=== PATIENT | female | born 1980 | race African-American/Black ===

== ENCOUNTER 2017-04-24 14:17 | Day surgery (SDC) | payer MEDICAID ==
[2017-04-24] MEDS ORDERED: Goserelin Acetate 10.8 MG KIT SC SCH (14:45)
== END 2017-04-24 15:23 | disposition home or self-care (01) ==
LOC: ONC/OP 14:17
PROVIDERS: ATTEND Internal Medicine Hematology & Oncology
DX: C50.111 Malignant neoplasm of central portion of right female breast (principal); C78.2 Secondary malignant neoplasm of pleura; Z98.890 Other specified postprocedural states
CPT/HCPCS: 96402; J9202

== ENCOUNTER 2017-05-22 11:51 | Day surgery (SDC) | payer MEDICAID ==
[2017-05-22] MEDS ORDERED: Goserelin Acetate 3.6 MG KIT SC SCH (12:15)
[2017-05-22] MEDS ORDERED: Goserelin Acetate 10.8 MG KIT SC SCH (12:15)
== END 2017-05-22 12:39 | disposition home or self-care (01) ==
LOC: ONC/OP 11:51
PROVIDERS: ATTEND Internal Medicine Hematology & Oncology
DX: Z51.11 Encounter for antineoplastic chemotherapy (principal); C50.111 Malignant neoplasm of central portion of right female breast; C78.2 Secondary malignant neoplasm of pleura
CPT/HCPCS: 36415; 80053; 82248; 83615; 84100; 84550; 96401; J9202

== ENCOUNTER 2017-06-23 12:09 | Day surgery (SDC) | payer OTHER, SELFPAY ==
[2017-06-23] MEDS ORDERED: Goserelin Acetate 3.6 MG KIT SC SCH (12:30)
[2017-06-23 12:59] VITALS: BP 140/86; TEMP 98.1
== END 2017-06-23 13:26 | disposition home or self-care (01) ==
LOC: ONC/OP 12:09
PROVIDERS: ATTEND Internal Medicine Hematology & Oncology
DX: Z51.11 Encounter for antineoplastic chemotherapy (principal); C50.111 Malignant neoplasm of central portion of right female breast; C78.2 Secondary malignant neoplasm of pleura
CPT/HCPCS: 96402; J9202

== ENCOUNTER → 2017-06-27 | Outpatient (CLI) | payer OTHER ==
[~2017-06-27] MED LIST: Iopamidol 370 76% 100 ML VIAL ONE
--- NOTE | 2017-06-27 12:07 | CT ---
CT THORAX WITH IV CONTRAST CT ABDOMEN WITH IV CONTRAST Date: 06-27-17 History: Malignant neoplasm of right breast. History of chemotherapy. Right mastectomy. Comparison[place] [facility] [place] FINDINGS: There is evidence of right mastectomy with right breast prosthesis. Surgical clips are seen in the ri ght axillary region. There is no lymphadenopathy seen within the chest or super infraclavicular locations on this exam. Several noncalcified subcentimeter pulmonary nodules are again seen within the lungs bilaterally. Lar gest pulmonary nodule in the most medial aspect right upper lobe posterior to the right hilum measure s 5 mm with largest pulmonary nodule on the left also seen in the left upper lobe just posterior to t he superior aspect of the left main pulmonary artery adjacent to the abdominal aorta measuring 10 mm. Remaining pulmonary nodules measure less than 5 mm within each upper lobe. There is a pulmonary nodu le in the right lower lobe measuring approximately 6 mm, also stable from prior exam. These pulmonary nodules were also present on the prior exam and not significantly changed. No definite new discrete pulmonary nodular mass is seen. There is no pleural effusion identified. There was bilateral hilar as well as mediastinal lymphadenopathy seen on the prior exam, and the size of these lymph nodes has decreased when compared to the prior exam. No enlarged mediastinal or hilar lymph nodes are appreciated on today's examination. There is a stable 2.9 cm hypodense lesion seen within the right hepatic lobe, likely related to a met astatic lesion which is unchanged in size or appearance. No new hepatic lesions are identified. Increased density foci are seen in the inferior pole right kidney which may be related to contrast in the renal collecting systems although this is not appreciated in remaining portions of the collectin g systems bilaterally and may be related to nonobstructing renal calculi measuring up to 5 mm. Kidney s otherwise have a normal CT appearance. The spleen, pancreas, bilateral adrenal glands, abdominal aorta, and opacified small bowel have a nor mal CT appearance. There is a fat containing umbilical hernia. There is no evidence of lymphadenopathy seen in the abdomen. No free fluid is noted. There are multiple lytic lesions seen throughout the vertebral bodies involving the thoracic as well as lumbar spine involving the sacrum as well as bilateral iliac bones. These lytic lesions were not p resent on the prior exam. Lytic lesions throughout the thoracic and lumbar spine measure less than 1 cm. Apparent lucencies within the sacrum bilaterally, incompletely characterized on this exam. The la rgest measured approximately 2.1 cm. IMPRESSION: 1. Worsening metastatic disease with interval development of multiple osseous metastatic lesions. Mul tiple stable bilateral pulmonary nodules are seen as well as stable lesion in the right hepatic lobe, also likely related to metastatic disease. 2. Resolution of mediastinal and hilar lymphadenopathy. POS: [facility]
== END ==
LOC: CT 09:19
PROVIDERS: ATTEND Internal Medicine Hematology & Oncology
DX: C78.2 Secondary malignant neoplasm of pleura (principal); C50.111 Malignant neoplasm of central portion of right female breast; C79.51 Secondary malignant neoplasm of bone; K76.9 Liver disease, unspecified
CPT/HCPCS: 71260; 74160

== ENCOUNTER 2017-07-19 23:18 | Observation (INO) | payer OTHER ==
[2017-07-20 00:27] LABS: Hemoglobin 11.2 g/dL (12.0-16.0); Mean Corpuscular HGB CONC 35.6 g/dL (32.0-36.0); Mean Corpuscular Hemoglobin 34.2 pg (27.0-31.0); Mean Corpuscular Volume 96.3 fl (81.0-99.0); Mean Platelet Volume 7.2 fL (7.4-10.4); Platelet Count 341 thou/uL (130-400); RBC Distribution Width 15.2 % (11.5-14.5); Red Blood Cell (RBC) Count 3.26 mill/uL (4.20-5.40)
[2017-07-20 00:47] LABS: ALT (SGPT) 20 U/L (8-55); AST (SGOT) 26 U/L (5-34); Albumin 4.3 g/dL (3.5-5.0); Alkaline Phosphatase 155 U/L (40-150); Anion Gap 13 mmol/L (10-20); BUN (Urea Nitrogen) 16 mg/dL (7.0-18.7); Bilirubin, Total 0.2 mg/dL (0.2-1.2); Calc. Creatinine Clearance 0 mL/min (70-130); Calcium 9.7 mg/dL (7.8-10.44); Carbon Dioxide 28 mmol/L (22-29); Chloride 102 mmol/L (98-107); Estimated GFR-MDRD 74; Globulin 3.5 g/dL (2.4-3.5); Glucose 111 mg/dL (70-105); Protein, Total 7.8 g/dL (6.0-8.3); Sodium 139 mmol/L (136-145)
[2017-07-20 00:54] LABS: Eosinophils 3 % (0-10); Lymphocytes 62 % (21-51); MDiff Complete? YES; Monocytes 3 % (0-10); Neutrophil 32 % (42-75)
[2017-07-20] MEDS ORDERED: HYDROcodone/Acetaminophen 5/325 mg Tablet PO PRN ×2 (03:19)
[2017-07-20] MEDS ORDERED: Morphine 4 MG/ML VIAL SLOW IVP PRN (03:19)
[2017-07-20] MEDS ORDERED: Acetaminophen 325 MG TAB PO PRN (03:19)
[2017-07-20] MEDS ORDERED: Ondansetron ODT 8 MG TAB SL PRN (03:26)
[2017-07-20] MEDS ORDERED: Sodium Chloride 0.9% 1,000 ML IV SCH (03:30)
[2017-07-20] MEDS ORDERED: Dexamethasone 10 MG/ML VIAL SLOW IVP SCH (03:30)
[2017-07-20] MEDS ORDERED: Zolpidem Tartrate 5 MG TAB PO PRN ×3 (03:32→20:33)
[2017-07-20] MEDS ORDERED: Calcium Carbonate 500 MG ChewTAB PO PRN (03:41)
[2017-07-20] MEDS ORDERED: Simethicone Chewable 80 MG TAB PO PRN (03:41)
[2017-07-20] MEDS ORDERED: Lorazepam 2 MG/ML VIAL SLOW IVP SCH (04:00)
[2017-07-20] MEDS ORDERED: MORPHINE 10 MG/ML SYRINGE SLOW IVP SCH ×2 (04:00→16:00)
[2017-07-20] MEDS: Morphine 4 MG/ML VIAL SLOW IVP SCH ×2 (04:09→09:11)
[2017-07-20 04:25] VITALS: BMI 35.0
[2017-07-20] MEDS: Morphine 4 MG/ML VIAL SLOW IVP PRN ×2 (06:04→19:22)
--- NOTE | 2017-07-20 07:46 | HP-2 ---
DATE OF ADMISSION: 07/20/2017 CODE STATUS: FULL. ATTENDING PHYSICIAN: Sheldon Cordero M.D. RESIDENT: Caren Glaser M.D. HISTORIAN: Self. SPECIALIST: Deya Duran M.D., oncologist. CHIEF COMPLAINT: Left rib pain. HISTORY OF PRESENT ILLNESS: This is a 37-year-old female with past medical history of metastatic john ast cancer who presents to the ED complaining of pain. She reports that she has been having back jus n that she has started around the left side of her ribs and up into her sternum for the past 2 weeks. The pain has been getting progressively worse. It is sharp, 9/10 pain. It is worse with movement and with deep breathing or coughing. She was supposed to get an MRI of her spine on 07/25/[address] Duran. There was a CT done that had concern for mets to her bones, but Dr. Duran wante d to examine this further. She takes [place] 10/325 one and half tablets q.6 hours for her pain and th is is not really helping her pain. In the ER, she was given morphine 6 mg. PAST MEDICAL HISTORY: Metastatic breast cancer with mets to the lungs, liver and lymph nodes. PAST SURGICAL HISTORY: Right mastectomy and lymph node biopsy. ALLERGIES: No known drug allergies. MEDICATIONS: 1. [place] 10/325 mg 1.5 tablets q.6 hours. 2. Sucralfate 1 gram a.c. and at bedtime. 3. Nexium 40 mg q.a.m. 4. Ibrance 125 mg p.o. at bedtime. 5. Letrozole 2.5 mg p.o. at bedtime. 6. Zoladex 3.6 mg subcutaneously every 28 days. 7. Ambien 10 mg p.o. at bedtime p.r.n. insomnia. 8. Simethicone 80 mg p.o. at bedtime p.r.n. gas pain. 9. Tums 500 mg p.o. q.i.d. p.r.n. heartburn. FAMILY HISTORY: Mom, diabetes and hypertension. SOCIAL HISTORY: Denies tobacco, alcohol, or drug use. REVIEW OF SYSTEMS: GENERAL: Negative for fever, chills, fatigue. EYES: Negative for eye pain. EN T: Negative for rhinorrhea or sore throat. RESPIRATORY: Positive for cough. Negative for shortnes s of breath. CARDIOVASCULAR: Positive for chest pain. Negative for palpitations. GASTROINTESTINAL : Negative for nausea, vomiting, diarrhea. Positive for abdominal pain. GENITOURINARY: Negative f or dysuria, polyuria. SKIN: Negative for rashes, lesions. MUSCULOSKELETAL: Positive for pain or t enderness. NEUROLOGIC: Negative for weakness, numbness. PHYSICAL EXAMINATION: VITAL SIGNS: Blood pressure 169/109, pulse 112, respiratory rate 18, temperature 98.9, pulse ox 96% on room air, and current weight 84.82 kilograms. GENERAL: Alert, oriented x3, no acute distress, well-nourished, appropriately interactive. EYES: PERRLA. Extraocular muscles intact. Conjunctivae within normal limits. ENT: Nasal mucosa and oropharynx within normal limits. NECK: Supple, no lymphadenopathy. CARDIOVASCULAR: Regular rate and rhythm, no murmurs, gallops, 2+ radial and pedal pulses. LUNGS: Normal effort, no retractions, clear to auscultation bilaterally. SKIN: Warm, dry. No cyanosis or lesions. EXTREMITIES: No cyanosis or edema. BACK: There is point tenderness on lumbar spine. MUSCULOSKELETAL: Structure and tone within normal limits, 5/5 muscle strength. Full range of motion . NEUROLOGIC: No focal deficits. Sensation within normal limits. PSYCHIATRIC: Appropriate. LABORATORY DATA: WBC 4.0, ANC 1.28, hemoglobin 11.2, hematocrit 31.4, MCV 96.3, platelets 341. Sodi um 139, potassium 4.0, chloride 102, CO2 28, BUN 16, creatinine 1.02, GFR 74, glucose 111, calcium 9. 7, total protein 7.8, albumin 4.3, total bilirubin 0.2, alkaline phosphatase 155, AST 26, and ALT 20. ASSESSMENT AND PLAN: This is a 37-year-old female who presents with: 1. Intractable pain secondary to metastatic disease. This could be bony pain versus pleural. We wi ll give morphine 4 mg q.4 hours and 2 mg q.2 hours p.r.n. breakthrough. We will load the patient wit h dexamethasone 50 grams IV and then do a steroid taper. We will get MRIs of the spine and consult O ncology in a.m. 2. Elevated blood pressure, likely secondary to pain. We will monitor. Treat pain and treat blood pressure if remains elevated. 3. Metastatic breast cancer. Continue home meds and consult Oncology in a.m. 4. Neutropenia, likely secondary to chemotherapy. We will monitor with ANC of 1.28. 5. Normocytic anemia, mild, likely secondary to chronic disease. We will monitor. 6. Acute versus chronic kidney disease. Patient did not appear volume depleted on exam. We will mo nitor. 7. Elevated alkaline phosphatase could be secondary to bone mets. We will monitor and we will get MR Is of the spine. Concern for rib mets with patient's history of rib pain. 8. Deep venous thrombosis prophylaxis, Lovenox. DISPOSITION: Observation with Oncology. Symptomatic medications will be provided. History and physical exam as well as management discussed with Dr. Cordero.
--- NOTE | 2017-07-20 07:46 | MRI ---
PRELIMINARY REPORT/[facility]/EMERGENCY AFTER HOURS PROCEDURE: EXAM: MR Thoracic Spine Without Intravenous Contrast CLINICAL HISTORY: 37 years old, female; Pain; Pain in thoracic spine; Without myelpathy or radiculopathy; Patient HX: F 37 presents to ed C/O l rib pain that wraps around torso, onset x 1 w. Location in front if under pt' s breast. Quality is sharp and shooting. Pain has worsened since onset. Family reports pain preventing pt from being able to sleep. Exacerbated by lying flat, deep inhalation. Reports pain throughout enti re spine, even up to neck; However, spine pain has different quality and began prior to onset o rib p ain. Pt has taken hydrocodone for pain, which offered no relief. TECHNIQUE: Magnetic resonance images of the thoracic spine without intravenous contrast in multiple planes. COMPARISON: No relevant prior studies available. FINDINGS: Vertebrae: Mildly heterogeneous bone marrow signal No acute fracture. Discs/spinal canal/neural foramina: No acute findings. No significant disc disease. No spinal canal s tenosis. Spinal cord: Unremarkable. Normal signal. Soft tissues: Unremarkable. IMPRESSION: No definite acute process identified Thank you for allowing us to participate in the care of your patient. Dictated and Authenticated by: Bhanu Holcomb MD 07/20/2017 1:43 AM Central Time ([place] & [place]) FINAL REPORT NONCONTRAST ENHANCED MRI THORACIC SPINE: Date: 07/19/17 HISTORY: Back pain, evaluate for metastatic disease. TECHNIQUE: Multiplanar, multisequence noncontrast enhanced MRI of thoracic spine obtained. FINDINGS: Images demonstrate signal abnormality on T1 and STIR weighted sequences involving all of the thoracic vertebra. The thoracic vertebra, particularly the vertebral bodies, have heterogeneous pattern of si gnal intensity with abnormal increased signal on the STIR weighted sequences. This is concerning for extensive thoracic spine metastatic disease. No definite evidence of compression fractures or signifi cant central canal stenosis is seen. The neural foramen are patent. IMPRESSION: Findings concerning for extensive thoracic spine vertebral signal abnormalities concerning for extens suad metastatic disease. POS: [facility]
--- NOTE | 2017-07-20 07:52 | MRI ---
PRELIMINARY REPORT/[facility]/EMERGENCY AFTER HOURS PROCEDURE: EXAM: MR Cervical Spine Without Intravenous Contrast CLINICAL HISTORY: 37 years old, female; Pain; Neck pain; Patient HX: F37 presents to ed C/O l rib pain that wraps aroun d torso, onset x 1 w. Location in front if under pt's breast. Quality is sharp and shooting. Pain has worsened since onset. Family reports pain preventing pt from being able to sleep. Exacerbated by lyi ng flat, deep inhalation. Reports pain throughout entire spine, even up to neck; However, spine pain has different quality and began prior to onset o rib pain. Pt has taken hydrocodone for pain, which o ffered no relief. TECHNIQUE: Magnetic resonance images of the cervical spine without intravenous contrast in multiple planes. COMPARISON: No relevant prior studies available. FINDINGS: Vertebrae: Loss of vertebral body height, presumed degenerative No acute fracture. Mildly heterogeneo us bone marrow signal Spinal cord: Unremarkable. Normal signal. Soft tissues: Unremarkable. DISCS/SPINAL CANAL/NEURAL FORAMINA: C2-C3: Unremarkable. No significant disc disease. No stenosis. C3-C4: Posterior osseous ridging and mild disc bulging mildly effacing anterior thecal sac. No discon tinue herniation or significant foraminal stenosis C4-C5: Mild central canal stenosis. No disc herniation or significant coronal stenosis C5-C6: Mild central canal stenosis. Right greater left foraminal stenosis. No disc herniation C6-C7: Mild central canal stenosis and right-sided foraminal stenosis. No disc herniation noted C7-T1: Unremarkable. No significant disc disease. No stenosis. IMPRESSION: Degenerative changes most pronounced in the lower cervical spine as described. No focal disc herniation Thank you for allowing us to participate in the care of your patient. Dictated and Authenticated by: Bhanu Holcomb MD 07/20/2017 1:24 AM Central Time ([place] & [place]) FINAL REPORT MRI CERVICAL SPINE: Date: 07/19/17 HISTORY: Back pain. Patient with history of breast cancer. TECHNIQUE: Multiplanar, multisequence noncontrast enhanced MRI cervical spine obtained. FINDINGS: Images demonstrate signal heterogeneity in the C3, C5, C6, and C7 cervical vertebral bodies concernin g for metastatic disease. C1-2: Unremarkable. C2-3: There is a broad based disc bulge. No significant degree of central stenosis is seen. The neural fora men are patent. C3-4: Unremarkable. C4-5: There is a broad based disc osteophyte complex centrally compressing the thecal sac resulting in mode rate degree of thecal sac and mild cord compression. The neural foramen are patent. C5-6: There is a broad based disc osteophyte complex centrally compressing the thecal sac resulting in a mo derate degree of thecal sac and mild cord compression. The neural foramen demonstrate mild bilateral C5-6 narrowing due to uncovertebral osteophyte hypertrophy. C6-7: There is a broad based disc osteophyte complex centrally compressing the thecal sac resulting in a mo derate to significant degree of central and right paracentral C6-7 spinal stenosis. The neural forame n are patent. C7-T1: Unremarkable. IMPRESSION: 1. Multilevel central disc osteophyte complexes compressing the thecal sac. 2. Multiple areas of signal abnormality seen in the cervical vertebra compatible with metastatic dis ease. POS: [facility]
[2017-07-20] MEDS: Sucralfate 1 GM TAB PO SCH ×4 (07:55→21:18)
--- NOTE | 2017-07-20 08:01 | MRI ---
PRELIMINARY REPORT/[facility]/EMERGENCY AFTER HOURS PROCEDURE: EXAM: MR Lumbar Spine Without Intravenous Contrast CLINICAL HISTORY: 37 years old, female; Pain; Low back pain; Patient HX: F37 presents to ed C/O l rib pain that wraps a round torso, onset x 1 w. Location in front if under pt's breast. Quality is sharp and shooting. Pain has worsened since onset. Family reports pain preventing pt from being able to sleep. Exacerbated by lying flat, deep inhalation. Reports pain throughout entire spine, even up to neck; However, spine p ain has different quality and began prior to onset o rib pain. Pt has taken hydrocodone for pain, whi ch offered no relief. TECHNIQUE: Magnetic resonance images of the lumbar spine without intravenous contrast in multiple planes. COMPARISON: No relevant prior studies available. FINDINGS: Vertebrae: Unremarkable. No acute fracture. Spinal cord: Unremarkable. Normal signal. Soft tissues: Unremarkable. DISCS/SPINAL CANAL/NEURAL FORAMINA: L1-L2: Unremarkable. No significant disc disease. No stenosis. L2-L3: Unremarkable. No significant disc disease. No stenosis. L3-L4: Unremarkable. No significant disc disease. No stenosis. L4-L5: Loss of disc signal Mild disc bulging with left greater than right moderate foraminal stenosis . No significant central canal stenosis or evidence for disc herniation. Facet hypertrophic changes not ed L5-S1: Loss of disc signal. Mild disc bulging No significant central canal stenosis. Moderate foramin al stenosis. No disc herniation. Facet hypertrophic changes observed IMPRESSION: Degenerative changes in the lower lumbar spine as described with bilateral foraminal stenosis. No sig nificant central canal stenosis or evidence for disc herniation Thank you for allowing us to participate in the care of your patient. Dictated and Authenticated by: Bhanu Holcomb MD 07/20/2017 2:01 AM Central Time ([place] & [place]) FINAL REPORT NONCONTRAST ENHANCED MRI LUMBAR SPINE: Date: 07/19/17 HISTORY: Back pain with metastatic disease. TECHNIQUE: Noncontrast enhanced MRI lumbar spine obtained. FINDINGS: Areas of definite signal abnormality seen in the T11, T12, and S1 vertebra compatible with definite m etastatic lesions in these areas. There are more subtle areas of superior end plate signal abnormalit y seen involving the superior anterior aspect of L1, posterior superior end plate of L3, and the ante rior, superior, and inferior aspects of the L4 vertebra. There is also a subtle area of central infer ior end plate L5 signal abnormality. These all may represent possible early metastatic lesions only s een on the STIR weighted sequences. There is a broad based disc bulge at L4-5 with mild but not significant degree of central stenosis. B ilateral facet hypertrophic changes seen at the L4-5 level with some fluid seen in the L4-5 facet ant nts. L5-S1: Disc desiccation is seen. There is a broad based disc bulge with bilateral facet hypertrophy. A small amount of fluid seen in the L5-S1 facet joints. IMPRESSION: Multiple areas of signal abnormality definitively in the lower thoracic spine and first sacral verteb ra. These are compatible with definite metastatic lesions. More subtle areas of signal abnormality se en in the lumbar vertebra, possibly representing early metastatic lesions. POS: [facility]
[2017-07-20] MEDS: Enoxaparin Sodium 40 MG/0.4 ML SYRINGE SC SCH (09:11)
[2017-07-20] MEDS: Dexamethasone 4 MG TAB PO SCH ×2 (11:35→16:37)
[2017-07-20] MEDS: HYDROcodone/Acetaminophen 10/325 mg Tablet PO SCH ×2 (11:35→19:19)
--- NOTE | 2017-07-20 12:18 | PDOC.EVN ---
Attending Addendum - Attending Addendum I personally evaluated the patient and discussed the management with Dr. Glaser. I agree with the History, Examination, Assessment and Plan documented in her H& P with any addition or exceptions noted below. Patient with history of metastatic breast cancer admitted for worsening pain. We have discussed case with her oncologist, and will work to improve pain control through the day. There is no other significant findings that necessitate hospitalization. If we can get her pain under control, she can be discharged with early follow up with Oncology next week.
[2017-07-20] MEDS ORDERED: Morphine 4 MG/ML VIAL SLOW IVP SCH (16:00)
[2017-07-21] MEDS: HYDROcodone/Acetaminophen 10/325 mg Tablet PO SCH ×2 (03:23→11:10)
[2017-07-21] MEDS: Morphine 4 MG/ML VIAL SLOW IVP PRN ×2 (05:15→17:17)
--- NOTE | 2017-07-21 07:56 | PDOC.FM ---
- Subjective Subjective: Ms. Guallpa is feeling better this morning. Her pain is improved and she was able to sleep for most of the night. She did require 2mg of morphine around 3am for breakthrough pain but was otherwise well controlled. Regarding her increased heart rate, patient states that this is baseline for her. She has been told that she has a fast heart rate before, ever since having her first child. Also states that her heart rate is very reactive to any sort of stimulants in food/drink. EKG was done last night and was unremarkable. Pt denies any shortness of breath, CP, or palpitations this morning. - Objective MAR Reviewed: Yes Vital Signs & Weight: Vital Signs (12 hours) Temp Pulse Resp BP BP Pulse Ox 07/21/17 04:00 97.4 F L 100 16 129/69 99 07/20/17 23:00 97.8 F 110 H 18 108/57 L 96 07/20/17 20:00 97.5 F L 119 H 20 Weight Weight 86.778 kg I&O: 07/20/17 07/21/17 07/22/17 06:59 06:59 06:59 Intake Total 350.5 2521.0 Balance 350.5 2521.0 Result Diagrams: 07/19/17 00:13 07/19/17 00:13 EKG Reviewed by me: Yes <Eh Ny - Last Filed: 07/21/17 09:49> - Objective Vital Signs & Weight: Vital Signs (12 hours) Temp Pulse Resp BP BP Pulse Ox 07/21/17 08:25 97.8 F 107 H 18 141/80 H 96 07/21/17 08:00 97.8 F 107 H 18 07/21/17 04:00 97.4 F L 100 16 129/69 99 07/20/17 23:00 97.8 F 110 H 18 108/57 L 96 Weight Weight 86.778 kg I&O: 07/20/17 07/21/17 07/22/17 06:59 06:59 06:59 Intake Total 350.5 2521.0 Balance 350.5 2521.0 Result Diagrams: 07/19/17 00:13 07/19/17 00:13 <Sheldon Cordero - Last Filed: 07/21/17 10:17> Phys Exam - Physical Examination Constitutional: NAD Respiratory: clear to auscultation bilateral Cardiovascular: no significant murmur tachycardic Gastrointestinal: soft, non-tender Musculoskeletal: no edema, pulses present Neurological: non-focal, moves all 4 limbs Psychiatric: normal affect, A&O x 3 <Eh Ny - Last Filed: 07/21/17 09:49> Dx/Plan (1) Cancer associated pain Code(s): G89.3 - NEOPLASM RELATED PAIN (ACUTE) (CHRONIC) Status: Acute Plan: Scheduled norco increased this admission. Pain better controlled. Considering discharge today; sending Rx for tramadol for breakthrough pain. (2) Stage IV carcinoma of breast Code(s): C50.919 - MALIGNANT NEOPLASM OF UNSP SITE OF UNSPECIFIED FEMALE BREAST Status: Chronic Plan: Dr. Duran treating. Will try to get patient's monthly injection of aromatase inhibitor prior to discharge. Pt to f/u in cancer clinic tomorrow or Friday. (3) Sinus tachycardia Code(s): R00.0 - TACHYCARDIA, UNSPECIFIED Status: Chronic Plan: Asymptomatic. Improved this morning. EKG unconcerning. (4) Bone metastases Code(s): C79.51 - SECONDARY MALIGNANT NEOPLASM OF BONE Status: Acute Plan: New evidence of extensive bony mets throughout the vertebral column on MRI. Dr. Duran to set up radiation outpt. (5) Neutropenia Code(s): D70.9 - NEUTROPENIA, UNSPECIFIED Status: Chronic Plan: Likely related to ongoing cancer treatment. (6) Normocytic anemia Code(s): D64.9 - ANEMIA, UNSPECIFIED Status: Chronic Plan: Chronic, at baseline. <Eh Ny - Last Filed: 07/21/17 09:49> Attending Addendum - Attending Addendum I personally evaluated the patient and discussed the management with Dr. Ny. I agree with the History, Examination, Assessment and Plan documented above with any addition or exceptions noted below. Patient with improvement in pain today with [place] 10/325 2 tabs. She has required little for breakthrough pain. Case discussed with her oncologist yesterday and plans to follow up in clinic in next 1-2 days. If patient feeling well this afternoon, should be stable for discharge home. <Sheldon Cordero - Last Filed: 07/21/17 10:17>
[2017-07-21 08:26] VITALS: BP 141/80; TEMP 97.8
[2017-07-21] MEDS: Sucralfate 1 GM TAB PO SCH ×3 (08:27→17:10)
[2017-07-21] MEDS: Dexamethasone 4 MG TAB PO SCH ×3 (08:28→17:08)
[2017-07-21] MEDS: Enoxaparin Sodium 40 MG/0.4 ML SYRINGE SC SCH (08:28)
[2017-07-21] MEDS ORDERED: Goserelin Acetate 10.8 MG KIT SC SCH (14:30)
[2017-07-21] MEDS ORDERED: Magnesium Citrate 300 ML BOT PO SCH (18:00)
--- NOTE | 2017-07-22 01:39 | DIS-2 ---
DATE OF ADMISSION: 07/20/2017 DATE OF DISCHARGE: 07/21/2017 DISCHARGE ATTENDING: Sheldon Cordero M.D. DISCHARGING RESIDENT: Eh Ny M.D. CONSULTATIONS: None. PROCEDURES: None. IMAGING: She had MRI of the cervical, thoracic, and lumbar spines that showed multiple areas of sign al abnormality seen throughout the vertebral column compatible with metastatic disease. PRIMARY DISCHARGE DIAGNOSES: 1. Stage IV breast cancer metastatic to the bone. 2. Intractable cancer related pain, improved. 3. Sinus tachycardia. SECONDARY DISCHARGE DIAGNOSES: 1. Neutropenia. 2. Normocytic anemia. 3. Acute kidney injury versus chronic kidney disease, stage 2. DISCHARGE MEDICATIONS: 1. Dexamethasone 4 mg 3 times daily with meals. 2. Hydrocodone 10/325 two tabs every 8 hours. 3. Tramadol 50 mg every 4 hours as needed. 4. Zoladex 3.6 mg subcutaneously every 28 days. 5. Calcium carbonate 500 mg 4 times daily as needed. 6. Zolpidem 10 mg at bedtime as needed. 7. Simethicone 80 mg after meals and at bedtime as needed. 8. Esomeprazole 40 mg every morning with breakfast. 9. Sucralfate 1 gram 4 times daily. 10. Ibrance 125 mg oral at bedtime. 11. Letrozole 2.5 mg at bedtime. DISCONTINUED MEDICATIONS: [place] 10/325 one tablet every 6 hours as needed. HISTORY OF PRESENT ILLNESS AND HOSPITAL COURSE: This Ramu is a 37-year-old -[place] fema le with a past medical history of metastatic breast cancer who presents to the ED complaining of alice re back and rib pain. Family was concerned that pain was getting worse. Patient did have an order M RI of her spine ordered by her oncologist, Dr. Duran as scheduled for 07/17/2017 that upon admissio n in the ER physician, MRI of the cervical, thoracic, and lumbar spines were ordered. The patient's breast cancer was previously noted to be metastatic of the lungs, liver, and lymph nodes. MRI showed further metastatic disease of the vertebral column. During her admission, we titrated up her [place] to obtain a better pain control. Dr. Duran was notified that the patient was here and agreed to sc hedule the patient on Friday or Friday. After discharge to a set up for radiation treatments for the vertebral bone metastases. Patient was also noted to have some sinus tachycardia that was discu ssed with patient, this appears to be baseline. EKG was unremarkable. After a period of observation and increased pain control, patient was felt to be ready for discharge home. DISPOSITION: Stable. DISCHARGE INSTRUCTIONS: 1. Location: Home. 2. Activity: As tolerated. 3. Diet: Regular. 4. Follow up with Dr. Duran in 1-2 days.
[2017-07-22] MEDS ORDERED: Goserelin Acetate 3.6 MG KIT SC SCH (09:00)
--- NOTE | 2017-07-22 10:21 | EKG ---
Test Reason : Blood Pressure : / mmHG Vent. Rate : 113 BPM Atrial Rate : 113 BPM P-R Int : 142 ms QRS Dur : 068 ms QT Int : 324 ms P-R-T Axes : 037 034 066 degrees QTc Int : [address] elevation, consider early repolarization , widespread No previous ECGs available Confirmed by DR. Asa DE LEON ([id number]) on 07/22/2017 10:20:51 AM Referred By: Confirmed By:DR. Asa DE LEON
== END 2017-07-21 18:50 | disposition home or self-care (01) ==
LOC: ERS 23:18 → ONC 07-20 03:03
PROVIDERS: ADMIT Student in an Organized Health Care Education/Training Program; ATTEND Student in an Organized Health Care Education/Training Program
DX: C50.919 Malignant neoplasm of unspecified site of unspecified female breast (principal); G89.3 Neoplasm related pain (acute) (chronic); C78.02 Secondary malignant neoplasm of left lung; C78.01 Secondary malignant neoplasm of right lung; C78.7 Secondary malignant neoplasm of liver and intrahepatic bile duct; C77.9 Secondary and unspecified malignant neoplasm of lymph node, unspecified; C79.51 Secondary malignant neoplasm of bone; R00.0 Tachycardia, unspecified; D70.9 Neutropenia, unspecified; R03.0 Elevated blood-pressure reading, without diagnosis of hypertension; R74.8 Abnormal levels of other serum enzymes; R07.81 Pleurodynia; M54.9 Dorsalgia, unspecified; Z79.899 Other long term (current) drug therapy; Z90.11 Acquired absence of right breast and nipple; Z98.890 Other specified postprocedural states
CPT/HCPCS: 72141; 72146; 72148; 80053; 85025; 93005; 93010; 96372; 96374; 96375; 96376; A4216; G0378; J1100; J1650; J2060; J2270; J8540

== ENCOUNTER 2017-07-24 10:41 | Day surgery (SDC) | payer OTHER, SELFPAY ==
[2017-07-24] MEDS ORDERED: Goserelin Acetate 3.6 MG KIT SC SCH (11:00)
[2017-07-24 11:01] VITALS: BP 138/77; TEMP 97.9
== END 2017-07-24 11:23 | disposition home or self-care (01) ==
LOC: ONC/OP 10:41
PROVIDERS: ATTEND Internal Medicine Hematology & Oncology
DX: Z51.11 Encounter for antineoplastic chemotherapy (principal); C50.111 Malignant neoplasm of central portion of right female breast; C78.2 Secondary malignant neoplasm of pleura; Z90.11 Acquired absence of right breast and nipple; Z98.890 Other specified postprocedural states; Z83.3 Family history of diabetes mellitus; Z82.49 Family history of ischemic heart disease and other diseases of the circulatory system
CPT/HCPCS: 96402; J9202

== ENCOUNTER 2017-08-21 13:03 | Day surgery (SDC) | payer OTHER ==
[2017-08-21] MEDS ORDERED: Goserelin Acetate 3.6 MG KIT SC SCH (13:15)
== END 2017-08-21 14:27 | disposition home or self-care (01) ==
LOC: ONC/OP 13:03
PROVIDERS: ATTEND Internal Medicine Hematology & Oncology
DX: Z51.11 Encounter for antineoplastic chemotherapy (principal); C50.111 Malignant neoplasm of central portion of right female breast; C78.2 Secondary malignant neoplasm of pleura
CPT/HCPCS: 96402; J9202

== ENCOUNTER 2017-09-04 09:45 | Outpatient (CLI) | payer OTHER ==
[2017-09-04 11:29] LABS: Mean Corpuscular HGB CONC 34.4 g/dL (32.0-36.0); Mean Corpuscular Hemoglobin 33.9 pg (27.0-31.0); Mean Corpuscular Volume 98.4 fl (81.0-99.0); Mean Platelet Volume 7.8 fL (7.4-10.4); Platelet Count 128 thou/uL (130-400); RBC Distribution Width 13.8 % (11.5-14.5); Red Blood Cell (RBC) Count 3.54 mill/uL (4.20-5.40)
[2017-09-04 11:35] LABS: BHCG - Serum Negative (NEGATIVE); Pregs Control Background? CLEAR/WHITE (CLR/WHITE); Pregs Control Bar Appear? YES (CONTROL BAR)
[2017-09-04 11:51] LABS: Anion Gap 14 mmol/L (10-20); BUN (Urea Nitrogen) 13 mg/dL (7.0-18.7); Calc. Creatinine Clearance 0 mL/min (70-130); Calcium 10.1 mg/dL (7.8-10.44); Carbon Dioxide 26 mmol/L (22-29); Chloride 103 mmol/L (98-107); Estimated GFR-MDRD Greater than 90; Glucose 81 mg/dL (70-105); Sodium 139 mmol/L (136-145)
== END 2017-09-04 09:46 | disposition home or self-care (01) ==
LOC: LABBT 09:45
PROVIDERS: ATTEND Obstetrics & Gynecology
DX: Z01.812 Encounter for preprocedural laboratory examination (principal); Z17.0 Estrogen receptor positive status [ER+]
CPT/HCPCS: 80048; 84703; 85027; 86850; 86900; 86901

== ENCOUNTER 2017-09-08 10:49 | Day surgery (SDC) | payer OTHER, SELFPAY ==
[2017-09-04 10:27] VITALS: BMI 32.3
--- NOTE | 2017-09-07 19:37 | HP ---
DATE OF ADMISSION: 09/08/2017 REASON FOR ADMISSION: Recurrent breast cancer, estrogen receptor positive. SCHEDULED PROCEDURE: Laparoscopic bilateral salpingo-oophorectomy. HISTORY OF PRESENT ILLNESS: Ms. Guallpa is a 37-year-old 1, para 1 who has stage III recurr ent estrogen receptor positive, HER2 negative, breast cancer since 2008. She has had a hilar metasta sis or supraclavicular and hilar and pulmonary liver mets noted in 02/2017 and has bone metastases in the thoracic region noted in June. She is on Zoladex and desires surgical oophorectomy rather t estrella chemical. 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 PAST MEDICAL HISTORY: The patient has recurrent breast cancer. PAST SURGICAL HISTORY: Surgical therapy for her breast cancer as well as Mediport placement in the [facility]. MEDICATIONS: Zolpidem, Nexium, letrozole, Ibrance. ALLERGIES: None. SOCIAL HISTORY: Denies tobacco, alcohol, or drug use. FAMILY HISTORY: Noncontributory. REVIEW OF SYSTEMS: Noncontributory. PHYSICAL EXAMINATION: GENERAL: White female, in no acute distress. HEENT: Within normal limits. LUNGS: Clear to auscultation bilaterally. HEART: Regular rhythm. BREASTS: Masses bilaterally and at this time status post breast cancer treatment. ABDOMEN: Soft and nontender. No rebound or guarding. PELVIC: Vulva without lesions. Vagina without discharge. Cervix parous, uterus anteverted and smal l adnexa, no masses bilaterally. EXTREMITIES: Without clubbing, cyanosis or edema. IMPRESSION: Recurrent estrogen receptor positive, metastatic breast cancer, desiring surgical castra tion. PLAN: Laparoscopic BSO with appropriate antibiotic and DVT prophylaxis.
--- NOTE | 2017-09-07 19:39 | HP ---
DATE OF ADMISSION: 09/08/2017 REASON FOR ADMISSION: Recurrent ER positive breast cancer. SCHEDULED PROCEDURE: Laparoscopic bilateral salpingo-oophorectomy. HISTORY OF PRESENT ILLNESS: Ms. Guallpa is a 37-year-old 1, para 1 with metastatic stage II I, ER positive breast cancer metastatic through her mediastinum, liver, lung, and spine. She is curr ently on Zoladex and desires surgical castration. 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 PAST MEDICAL HISTORY: Recurrent breast cancer. PAST SURGICAL HISTORY: Surgical management of breast cancer and port placement. ALLERGIES: None. MEDICATIONS: Ibrance, letrozole, Nexium, sucralfate, Zoladex. SOCIAL HISTORY: Denies tobacco, alcohol, or drug use. FAMILY HISTORY AND REVIEW OF SYSTEMS: Noncontributory. PHYSICAL EXAMINATION: GENERAL: White female, in no acute distress. VITAL SIGNS: 5 feet 2, 187, BMI 34, blood pressure 100/60. HEENT: Within normal limits. LUNGS: Clear to auscultation bilaterally. HEART: Regular rhythm. BREASTS: No masses bilaterally. ABDOMEN: Soft, nontender, no rebound or guarding. PELVIC: Vulva without lesions. Vagina without discharge. Cervix parous. Uterus anteverted, small adnexa, no masses bilaterally. EXTREMITIES: Without clubbing, cyanosis or edema. IMPRESSION: ER positive for recurrent breast cancer metastasis, currently undergoing monthly shots w ith Zoladex for chemical castration, desires surgical castration. PLAN: Laparoscopic BSO. We will administer appropriate antibiotic and DVT prophylaxis.
[2017-09-08] MEDS ORDERED: Lidocaine 1% w/Epinephrine 1:200K 30 ML VIAL ONE (11:42)
[2017-09-08] MEDS ORDERED: Bupivacaine 0.5% 10 ML VIAL ONE ×3 (11:42→11:44)
[2017-09-08] MEDS ORDERED: HYDROmorphone 0.5 MG/0.5 ML SYRINGE ONE (11:52)
[2017-09-08] MEDS ORDERED: Fentanyl 100 MCG/2 ML VIAL ONE (11:52)
[2017-09-08] MEDS ORDERED: Lidocaine 1% PF 5 ML VIAL ONE (12:00)
[2017-09-08] MEDS ORDERED: PROPOFOL 200 MG/20 ML VIAL ONE (12:00)
[2017-09-08] MEDS ORDERED: Glycopyrrolate 0.2 MG/ML 5 ML SYRINGE ONE (12:00)
[2017-09-08] MEDS ORDERED: Dexamethasone 20 MG/5 ML VIAL ONE (12:00)
[2017-09-08] MEDS ORDERED: PHENYLEPHRINE-NS 100 MCG/ML 10 ML SYRINGE ONE (12:00)
[2017-09-08] MEDS ORDERED: Ondansetron PF 4 MG/2 ML Vial ONE (12:00)
[2017-09-08] MEDS ORDERED: Ketorolac Tromethamine 30 MG/ML VIAL ONE (12:00)
[2017-09-08] MEDS ORDERED: CEFAZOLIN/Water 2 GM/20 ML SYRINGE ONE (12:02)
--- NOTE | 2017-09-08 15:44 | OP ---
DATE OF PROCEDURE: 09/08/2017 PREOPERATIVE DIAGNOSIS: Recurrent metastatic estrogen receptor positive breast cancer. POSTOPERATIVE DIAGNOSIS: Recurrent metastatic estrogen receptor positive breast cancer. PROCEDURE: Laparoscopic bilateral salpingo-oophorectomy. SURGEON: Noe Peter M.D. ANESTHESIA: General endotracheal. ANESTHESIOLOGIST: Ariel Jimenez M.D. ESTIMATED BLOOD LOSS: Less than 50 mL. MEDICATIONS: Two grams Ancef preincision. DVT PROPHYLAXIS: SCDs. OPERATIVE FINDINGS: 1. Normal appearing uterus, tubes, ovaries, and pelvis. 2. Complete removal of bilateral tubes and ovaries. 3. Hemostasis with clear urine, counts correct during the procedure. DISPOSITION: To the recovery room in good condition. DESCRIPTION OF OPERATIVE PROCEDURE: After obtaining proper informed consent, the patient was taken t o the operating room where general endotracheal anesthesia was achieved without difficulty after achi eving appropriate IV access. The patient was prepped and draped in dorsal lithotomy position. Bladd er drained with a Fields catheter and Hulka manipulator placed inside the cervix. Photographer Apprentice changed hi s gloves and turned his attention to the abdominal portion of procedure. 5 mL of Marcaine injected a t the base of umbilicus and a 5 mm skin incision made. Veress needle placed inside the abdominal cav ity. Confirmation of entry into the peritoneal cavity via saline drop test. Insufflation carried ou t with carbon dioxide to a max pressure of 15, volume approximately 3 liters. A 5 mm trocar placed u nder an Optiview technique confirming entry into the peritoneal tract cavity without trauma to underl hallie viscera. Left lateral 5 mm trocar placed under direct visualization and an 11 mm suprapubic in the midline in the same manner. The pelvic organs were mobilized and using the LigaSure, the utero-o varian, broad, mesosalpinx, and infundibulopelvic ligaments were coagulated and transected, amputatin g the right tube and ovary from the uterus and pelvis. It was placed in the cul-de-sac of Jack fo r retrieval. An identical procedure carried out on the patient's left. Good hemostasis was noted bi laterally after this was done. Retrieval sac was placed into the larger trocar and the specimens chava danna inside of this. They were pulled up to the level of skin with the trocar removed and the specime ns were removed without difficulty. Using the trocar closure set, the 11 mm trocar site was closed a t the level of the fascia using #0 Vicryl suture. The abdomen was then desufflated of carbon dioxide and the two smaller trocars removed. The skin reapproximated x3 using 4-0 Monocryl and Dermabond. Hulka manipulator was removed. Fields was removed. The patient was awakened, extubated, and taken to the recovery room in good condition.
[2017-09-08] MEDS ORDERED: HYDROcodone/Acetaminophen 5/325 mg Tablet ONE (18:06)
== END 2017-09-08 18:45 | disposition home or self-care (01) ==
LOC: SDC 10:49
PROVIDERS: ATTEND Obstetrics & Gynecology
PROC: 0UT24ZZ Resection of Bilateral Ovaries, Percutaneous Endoscopic Approach (ICD-10-PCS; principal; 2017-09-08)
PROC: 0UT74ZZ Resection of Bilateral Fallopian Tubes, Percutaneous Endoscopic Approach (ICD-10-PCS; principal; 2017-09-08)
DX: C79.62 Secondary malignant neoplasm of left ovary (principal); C79.61 Secondary malignant neoplasm of right ovary; C50.919 Malignant neoplasm of unspecified site of unspecified female breast; C78.1 Secondary malignant neoplasm of mediastinum; C78.7 Secondary malignant neoplasm of liver and intrahepatic bile duct; C79.51 Secondary malignant neoplasm of bone; C78.00 Secondary malignant neoplasm of unspecified lung; Z17.0 Estrogen receptor positive status [ER+]; Z79.818 Long term (current) use of other agents affecting estrogen receptors and estrogen levels; Z79.899 Other long term (current) drug therapy; Z90.10 Acquired absence of unspecified breast and nipple; Z98.890 Other specified postprocedural states
CPT/HCPCS: 88307; J0131; J1100; J1170; J1885; J2001; J2405; J2704; J3010; J3490

== ENCOUNTER 2017-09-13 22:24 | Inpatient (IN) | payer MEDICAID, OTHER ==
[~2017-09-13 22:24] MED LIST changes: +ISOVUE-370 76%-LOCM 1 ML ONE; -Iopamidol 370 76% 100 ML VIAL ONE; +Iopamidol 370 76% 50 ML VIAL FS ONE
--- NOTE | 2017-09-13 23:38 | CON ---
DATE OF CONSULTATION: 09/13/2017 HISTORY OF PRESENT ILLNESS: The patient is a 37-year-old -Swedish female who has been underg oing radiation and chemotherapy for metastatic breast cancer and has been having epigastric pain over the last 4 days. This pain does not seem to be alleviated or precipitated by any particular factors . It does not change with eating. She has tried some Nexium and sucralfate without benefit. She adams s had no melena or hematochezia. She just underwent a bilateral oophorectomy and she has had some co nstipation after this. PAST MEDICAL HISTORY: Significant for metastatic breast cancer with mets to the lungs, liver and lym ph nodes. PAST SURGICAL HISTORY: Includes right mastectomy and lymph node biopsy and recent oophorectomy. ALLERGIES: No known allergies. MEDICATIONS: [place], sucralfate, Nexium, Ibrance, letrozole, Zoladex, Ambien, simethicone, and Tums. SOCIAL HISTORY: She does not smoke or drink. FAMILY HISTORY: Negative for GI or liver disease. REVIEW OF SYSTEMS: Ten systems were reviewed and were negative except for above. PHYSICAL EXAMINATION: GENERAL: Shows an overweight -Swedish female in no acute distress. HEENT: Unremarkable. NECK: Supple. CHEST: Clear. CARDIOVASCULAR: Regular rate and rhythm. ABDOMEN: Soft. Diffusely tender. No organomegaly or masses appreciable. RECTAL: Deferred. EXTREMITIES: Normal. NEUROLOGIC: Nonfocal. LABORATORY AND IMAGING DATA: The recent laboratory is noted, but will be performed. No CT scan is y et viewable, but will be performed. ASSESSMENT: 1. Epigastric pain. 2. History of metastatic breast cancer. 3. Recent oophorectomy. RECOMMENDATIONS: 1. IV PPI. 2. CT scan. 3. EGD in a.m.
[2017-09-14 00:44] LABS: #Lymphocytes 1.1 thou/uL (1.20-3.40); #Monocytes 0.3 thou/uL (0.11-0.59); #Neutrophils 2.7 thou/uL (1.40-6.50); %Basophils 0.8 % (0.0-1.0); %Lymphocytes 27.3 % (21.0-51.0); Hemoglobin 11.5 g/dL (12.0-16.0); Mean Corpuscular HGB CONC 34.7 g/dL (32.0-36.0); Mean Corpuscular Hemoglobin 34.1 pg (27.0-31.0); Mean Corpuscular Volume 98.4 fl (81.0-99.0); Mean Platelet Volume 8.1 fL (7.4-10.4); Platelet Count 145 thou/uL (130-400); RBC Distribution Width 13.2 % (11.5-14.5); Red Blood Cell (RBC) Count 3.38 mill/uL (4.20-5.40); White Blood Cell (WBC) Count 4.2 thou/uL (4.8-10.8)
[2017-09-14 00:47] LABS: BHCG - Serum Negative (NEGATIVE); Pregs Control Background? CLEAR/WHITE (CLR/WHITE); Pregs Control Bar Appear? YES (CONTROL BAR)
[2017-09-14 00:49] LABS: INR-International Normal Ratio 1.1; PTT 29.2 SEC (22.9-36.1); Prothrombin Time 14.4 SEC (12.0-14.7)
[2017-09-14 00:56] LABS: Bilirubin Negative (Negative); Blood, Urine Negative (Negative); Glucose, Urine (Dipstick) Negative (Negative); Leukocyte Negative (Negative); Nitrite Negative (Negative); Protein, Urine (Dipstick) Negative (Neg-Trace); Urobilinogen 0.2 mg/dL (0.2-1.0)
[2017-09-14 00:58] LABS: Clarity Clear (Clear)
[2017-09-14 00:58] LABS: ALT (SGPT) 41 U/L (8-55); AST (SGOT) 41 U/L (5-34); Albumin 4.4 g/dL (3.5-5.0); Alkaline Phosphatase 162 U/L (40-150); Anion Gap 11 mmol/L (10-20); BUN (Urea Nitrogen) 7 mg/dL (7.0-18.7); Bilirubin, Total 0.4 mg/dL (0.2-1.2); Calc. Creatinine Clearance 0 mL/min (70-130); Calcium 10.1 mg/dL (7.8-10.44); Carbon Dioxide 28 mmol/L (22-29); Chloride 99 mmol/L (98-107); Estimated GFR-MDRD Greater than 90; Globulin 3.4 g/dL (2.4-3.5); Glucose 111 mg/dL (70-105); Lipase 17 U/L (8-78); Magnesium 2.5 mg/dL (1.6-2.6); Protein, Total 7.8 g/dL (6.0-8.3); Sodium 134 mmol/L (136-145)
[2017-09-14 01:00] LABS: CKMB 0.5 ng/mL (0-6.6); Troponin I Less than 0.010 ng/mL (< 0.028)
[2017-09-14] MEDS ORDERED: HYDROcodone/Acetaminophen 5/325 mg Tablet PO PRN (03:10)
[2017-09-14] MEDS ORDERED: HYDROcodone/Acetaminophen 7.5/325 mg Tablet PO PRN (03:10)
[2017-09-14] MEDS ORDERED: Ondansetron HCl/PF 4 MG/2 ML Vial IVP PRN ×2 (03:10→11:00)
[2017-09-14] MEDS: Sodium Chloride 0.9% 1,000 ML IV SCH ×2 (03:26→20:27)
[2017-09-14 04:12] VITALS: BMI 33.2
--- NOTE | 2017-09-14 04:31 | HP ---
CHIEF COMPLAINT: Abdominal pain. HISTORY OF PRESENT ILLNESS: Patient is a 37-year-old female [facility] Patient complained of having epigastric and left upper quadrant abdominal pain starting about 3 days ago. Of note, she recently had an oophorectomy endoscopically on Friday, 6 days ago. Patient d enied any other symptoms. She states that she has had some nausea, but no vomiting, no diarrhea, no constipation. She is currently getting chemotherapy for her breast cancer. Patient denied any sick contacts at home. No recent travels. PAST MEDICAL HISTORY: Patient is significant for metastatic breast cancer as discussed above as well as asthma. PAST SURGICAL HISTORY: Patient has had a right mastectomy as well as her recent oophorectomy. SOCIAL HISTORY: Negative tobacco or alcohol use. ALLERGIES: No known drug allergies. REVIEW OF SYSTEMS: Please see HPI. Rest of 14-point review of systems negative. LABORATORY AND X-RAY DATA: CBC: White count is 4.2, H&H 11 and 33 with platelet of 145. PT was 14, INR is 1.1, PTT was 29. Sodium 134, potassium 4.0, chloride 99, bicarbonate 28, BUN 7, creatinine 0 .8, lactic acid is 1.9. UA was normal. HOME MEDICATIONS: Patient's list is currently taking Nexium, Zoladex, [place], Femara, multivitamin, a nd Ibrance, sucralfate, tramadol, and Ambien. PHYSICAL EXAMINATION: VITAL SIGNS: Blood pressure 123/75, respirations 20, T-max 99.9, pulse initially is 122. Patient sa tting 98% on room air. GENERAL: Patient is awake, alert, and oriented x3, no acute distress. HEENT: Pupils are equal, round, react to light and accommodation. Extraocular muscles intact. TMs clear. No erythema in throat. NECK: No JVD, no lymphadenopathy. CARDIOVASCULAR: Regular rate and rhythm. LUNGS: Clear to auscultation bilaterally. ABDOMEN: Positive bowel sounds, soft, tender to palpation in epigastric/right upper quadrant area. No rebound or rigidity, no peritoneal signs. EXTREMITIES: No clubbing, cyanosis, or edema. IV noted in the foot on the left side. NEUROLOGIC: Cranial nerves II-XII are grossly intact. Muscle strength is equal throughout. PSYCHIATRIC: Patient's affect was normal and is cooperative and answers questions appropriately. ASSESSMENT AND PLAN: 1. Abdominal pain, possible related to patient's metastatic cancer. GI has seen this patient and pl ans on possible endoscopic study tomorrow. Continue with pain control with IV and p.o. pain medicati on. 2. Recent oophorectomy. COPY DIRECTOR has been notified by ER. Continue postop care. 3. Code status: The patient is FULL CODE.
[2017-09-14] MEDS: Morphine 5 MG/ML SYRINGE SLOW IVP PRN ×4 (07:06→18:32)
--- NOTE | 2017-09-14 07:45 | RAD ---
RADIOGRAPH OF CHEST FRONTAL VIEW: CLINICAL HISTORY: Epigastric pain, recent surgery. FINDINGS: There is added density of the right hemithorax. The patient has an indwelling right chest wall impla nt. The left lung is clear. Cardiac silhouette is within normal limits of size. Osseous structures are intact. IMPRESSION: Asymmetric increased density of the mid to inferior right hemithorax correlating to an indwelling aaron tral chest wall implant. Otherwise, no consolidation identified. POS: C
--- NOTE | 2017-09-14 08:27 | CT ---
ABDOMEN AND PELVIS CT WITH CONTRAST: CLINICAL HISTORY: Left upper quadrant pain. History of oophorectomy. FINDINGS: There is a partially imaged right chest wall implant. There is a hypodense lesion of the anterior as pect of the liver near the junction of the left and right hepatic lobes, which was previously measure d at 2.8 cm on 06/27/17 exam, and in a similar location measures approximately 2.8 cm, stable. No hyd ronephrosis of either kidney. The spleen is stable. No peripancreatic inflammation or evidence of s mall bowel obstruction. There is nonspecific free pelvic fluid. Mild heterogeneity of the uterus. The abdominal aorta is normal in caliber. There is stable heterogeneous density of the sacrum with a reas of lucency. There are also lucencies of each iliac bone. Partially imaged lung bases reveal no dularity, the most notable of which is within the lateral aspect of the right lower lobe, grossly sta ble to prior CT thorax 06/27/17. The pulmonary parenchyma is not reliably assessed on this exam. There are lytic lesions of the bilateral pubic bones. Small areas of lucency are seen within the ann ged spine and in addition there are foci of sclerosis. Findings suggesting mixed lytic and sclerotic diffuse metastatic disease. There is moderate retained fecal material of the colon. IMPRESSION: 1. Redemonstration of findings of diffuse metastatic disease. Previously noted liver lesion is ana luisa sly stable. There is diffuse osseous metastatic disease, difficult to reliably discern as stable giv en the prior exam did not include the pelvis. Recommend whole body bone scan as CT imaging appearanc e does indicate a mixed lytic and sclerotic process, and bone scan would provide a more sensitive stephane luation. 2. Redemonstration of pulmonary nodularity, incompletely assessed on the basis of this exam. 3. Nonspecific free pelvic fluid. There is heterogeneity of the uterus. POS: C
[2017-09-14] MEDS ORDERED: Fentanyl 100 MCG/2 ML VIAL ONE (10:35)
[2017-09-14] MEDS ORDERED: Promethazine HCl 25 MG/ML VIAL SLOW IVP PRN (11:00)
[2017-09-14] MEDS ORDERED: Promethazine HCl 25 MG/ML VIAL IM PRN (11:00)
--- NOTE | 2017-09-14 11:31 | OP ---
PREOPERATIVE DIAGNOSIS: Upper abdominal pain. DESCRIPTION OF PROCEDURE: After informed consent was obtained, the patient was placed in the left la teral decubitus position. Anesthesia administered per the Anesthesia Department. Forward-viewing en doscope was inserted in the esophagus under direct visualization with ease and passed to the second p ortion of the duodenum with ease. Second portion of the duodenum and duodenal bulb were normal. The pylorus, antrum, body, fundus, and cardia were normal. Retroflexion in the stomach was normal. The esophagus was normal throughout. ASSESSMENT: Normal esophagogastroduodenoscopy. RECOMMENDATIONS: 1. Gallbladder ultrasound. 2. Review CT. 3. Advance diet. 4. Pain control.
[2017-09-14] MEDS ORDERED: PROPOFOL 200 MG/20 ML VIAL ONE (14:16)
--- NOTE | 2017-09-14 14:28 | PDOC.PN ---
- Subjective Encounter Start Date: 09/14/17 Encounter Start Time: 14:22 Ms. Guallpa was seen today in follow-up. She continues to have abdominal pain. she notes it in the epigastric region, as well as the left upper quandrant. Nothing seems to make the pain better or worse. She says it is more or less constant. She notes some pain in the right upper quandrant but it is milder than that on the left side. It is partially relieved with Morphine, She has not yet tried Hydrocodone for pain relief. Ultram did not help at home. - Objective Resuscitation Status: Resuscitation Status FULL:Full Resuscitation MAR Reviewed: Yes Vital Signs & Weight: Vital Signs (12 hours) Temp Pulse Resp BP Pulse Ox 09/14/17 11:49 98.9 F 107 H 16 105/65 96 09/14/17 08:00 99.5 F 114 H 16 95 09/14/17 07:44 99.5 F 114 H 16 101/66 95 09/14/17 03:20 99.2 F 99 16 09/14/17 03:12 99.2 F 99 16 126/82 Weight Weight 181 lb 7 oz Result Diagrams: 09/14/17 00:26 09/14/17 00:26 Phys Exam - Physical Examination HEENT: PERRLA Respiratory: no wheezing, no rales, no rhonchi, clear to auscultation bilateral Cardiovascular: RRR, no significant murmur Gastrointestinal: soft + epigastric and left upper quandrant tenderness no rebound or guarding Musculoskeletal: no edema Dx/Plan (1) Abdominal pain Code(s): R10.9 - UNSPECIFIED ABDOMINAL PAIN Status: Acute (2) Malignant neoplasm of female breast Code(s): C50.919 - MALIGNANT NEOPLASM OF UNSP SITE OF UNSPECIFIED FEMALE BREAST Status: Acute - Plan * Abdominal pain- ? etiology, EGD was negative, and Ultrasound demonstrated some gallbladder sludge, and findings suggestive of gallbladder dyskinesis. Will await further recommendations from GI * Continue Morphine for pain control, and give a trial of Hydrocodone as well * She has been allowed to eat- so will re-start her home medications
[2017-09-14] MEDS ORDERED: Calcium Carbonate 500 MG ChewTAB PO PRN (14:33)
[2017-09-14] MEDS ORDERED: HYDROcodone/Acetaminophen 10/325 mg Tablet PO PRN (14:33)
--- NOTE | 2017-09-14 14:49 | ULT ---
RIGHT UPPER QUADRANT ULTRASOUND: History: Upper abdomen pain. FINDINGS: A small amount of nonshadowing echogenic material is present within the dependent portion of the gall bladder neck. There is no gallbladder wall thickening or pericholecystic fluid. No shadowing stones a re visible. Common duct is 0.2 cm diameter. Liver is heterogeneous. A hypoechoic 3.6 cm lesion within the medial segment left liver lobe correlat es with that on recent CT scan. No free fluid is apparent. IMPRESSION: 1. Small amount of biliary sludge within the gallbladder is consistent with chronic gallbladder dyski nesis. No evidence of acute biliary obstruction. 2. Hypoechoic liver mass correlates with abnormality on recent CT scan and likely represents metastat ic disease. POS: ASHLEIGH
[2017-09-14] MEDS: Sucralfate 1 GM TAB PO SCH ×2 (16:55→20:28)
[2017-09-14] MEDS ORDERED: Acetaminophen 325 MG TAB PO PRN (20:21)
[2017-09-14] MEDS: Letrozole 2.5 MG TAB PO SCH (20:28)
[2017-09-14] MEDS: Enoxaparin Sodium 40 MG/0.4 ML SYRINGE SC SCH (20:28)
[2017-09-14] MEDS: Simethicone Chewable 80 MG TAB PO PRN (20:31)
[2017-09-14] MEDS ORDERED: PALBOCICLIB 125 MG PO SCH (21:00)
[2017-09-14] MEDS: Zolpidem Tartrate 5 MG TAB PO PRN (22:12)
[2017-09-15] MEDS: Simethicone Chewable 80 MG TAB PO PRN ×3 (07:29→18:03)
[2017-09-15] MEDS: Morphine 5 MG/ML SYRINGE SLOW IVP PRN ×2 (07:38→10:11)
[2017-09-15] MEDS: Multivit, Therapeutic 1 TAB PO SCH (07:41)
[2017-09-15] MEDS: Sucralfate 1 GM TAB PO SCH ×4 (07:41→21:23)
[2017-09-15] MEDS: Sodium Chloride 0.9% 1,000 ML IV SCH (07:44)
--- NOTE | 2017-09-15 11:01 | PRG ---
DATE OF SERVICE: 09/15/2017 SUBJECTIVE: The patient was doing better yesterday on simethicone, but this morning she is having re currence of her pain. She says it is more up in her chest today. She has had no nausea or vomiting. ASSESSMENT: 1. Upper abdominal and chest pain of unknown etiology. 2. Metastatic breast cancer. RECOMMENDATIONS: 1. HIDA scan with ejection fraction. 2. Cardiology consultation.
--- NOTE | 2017-09-15 13:26 | PDOC.PN ---
- Subjective Encounter Start Date: 09/15/17 Encounter Start Time: 13:23 Ms. Guallpa was seen today in follow-up. she says that last night she was feeling better. The abdominal discomfort had improved. she says however this morning she woke up and felt fine, but as the morning progressed the pain returned, and it was in the epigastric region, and upp in to her chest. She said it felt like a pulling, and it got terrible. It was not relieved after 2 tablets, of simethacone, nor did the Morphine or Carafate help. She took some bicarbonate and this began to help. - Objective Resuscitation Status: Resuscitation Status FULL:Full Resuscitation MAR Reviewed: Yes Vital Signs & Weight: Vital Signs (12 hours) Temp Pulse Resp BP Pulse Ox 09/15/17 07:44 98.7 F 107 H 16 09/15/17 07:08 99.1 F 114 H 16 118/72 93 L 09/15/17 04:00 98.7 F 107 H 16 114/78 98 Weight Admit Weight 181 lb 7 oz Weight 181 lb 7 oz I&O: 09/14/17 09/15/17 09/16/17 06:59 06:59 06:59 Intake Total 490 Balance 490 Result Diagrams: 09/14/17 00:26 09/14/17 00:26 Phys Exam - Physical Examination HEENT: PERRLA Respiratory: no wheezing, no rales, no rhonchi, clear to auscultation bilateral Cardiovascular: RRR, no significant murmur Gastrointestinal: soft, no distention, positive bowel sounds + epigastric tenderness, and mild left upper quandrant tenderness no rebound or guarding Musculoskeletal: no edema Dx/Plan (1) Abdominal pain Code(s): R10.9 - UNSPECIFIED ABDOMINAL PAIN Status: Acute (2) Malignant neoplasm of female breast Code(s): C50.919 - MALIGNANT NEOPLASM OF UNSP SITE OF UNSPECIFIED FEMALE BREAST Status: Acute - Plan * Abdominal Pain and Chest pain- ? etiology She will e evaluated by Cardiology, and HIDA scan is planned for tomorrow * Continue treat symptomatically * Well heplock IV for now.
[2017-09-15] MEDS: Enoxaparin Sodium 40 MG/0.4 ML SYRINGE SC SCH (21:23)
[2017-09-15] MEDS: Letrozole 2.5 MG TAB PO SCH (21:23)
[2017-09-15] MEDS: Zolpidem Tartrate 5 MG TAB PO PRN (22:32)
--- NOTE | 2017-09-16 00:21 | CON ---
DATE OF CONSULTATION: HISTORY: Melissa Guallpa is a 37-year-old black female with history of metastatic breast cancer. She has metastasis to the lungs, liver and lymph nodes. One week ago today, she underwent laparoscopic BSO to reduce hormonal levels. Two days later, she began to have epigastric discomfort that would last for hours or a day at a time. The area is tender to touch and pain was definitely pleuritic in nature. This continued and she ultimately came to the emergency room for further evaluation. PAST MEDICAL HISTORY: Breast cancer and asthma. OPERATIONS: Right mastectomy and laparoscopic BSO 1 week ago. MEDICATIONS: At home include Tums 500 mg q.i.d. p.r.n., Nexium 40 daily, [place] p.r.n., Femara 2.5 at bedtime, multivitamin daily, Ibrance 127 mg at bedtime, simethicone 80 mg p.r.n., Carafate 1 gram q.i.d., zolpidem 10 mg at bedtime p.r.n. and tramadol 10 mg q.4 hours p.r.n. ALLERGIES: None. SOCIAL HISTORY: She does not smoke or drink. FAMILY HISTORY: Negative for coronary artery disease. REVIEW OF SYSTEMS: Twelve point review of systems otherwise unremarkable. PHYSICAL EXAMINATION: VITAL SIGNS: 118/72, pulse of 107. HEENT: PERRL. NECK: Supple. CHEST: Clear. CARDIAC: S1 and S2 are normal, without any S3, S4 or murmurs. ABDOMEN: Normal bowel sounds, without organomegaly. She does have epigastric tenderness, which reproduces her pain. NEUROLOGIC: Grossly intact. SKIN: Warm and dry. LABORATORY DATA: EKG reveals sinus tachycardia with rate of 108 per minute and voltage criteria for left ventricular hypertrophy. Hemoglobin 11.5, hematocrit 33.3, white count 4200, platelets 145,000, INR 1.1. Sodium 134, potassium 4.0, chloride 99, carbon dioxide 29, BUN 7, creatinine 0.80. Cardiac enzymes are negative x1. IMPRESSION: 1. Palpable epigastric tenderness, which is not cardiac in nature and I do not feel deserves any further evaluation. 2. Status post right mastectomy and metastatic breast cancer to the lungs, liver and lymph nodes. 3. Resting tachycardia. 4. S/P laparoscopic BSO one week ago. PLAN: With the resting tachycardia and previous chemotherapy; however, will have echocardiogram performed to assess left ventricular function. MTDD
[2017-09-16] MEDS: Sucralfate 1 GM TAB PO SCH ×2 (09:52→16:06)
[2017-09-16] MEDS: Multivit, Therapeutic 1 TAB PO SCH (09:52)
--- NOTE | 2017-09-16 10:18 | PDOC.PN ---
- Subjective Encounter Start Date: 09/16/17 Encounter Start Time: 10:17 - Objective Resuscitation Status: Resuscitation Status FULL:Full Resuscitation MAR Reviewed: Yes Vital Signs & Weight: Vital Signs (12 hours) Temp Pulse Resp BP Pulse Ox 09/16/17 08:14 98.5 F 108 H 14 116/79 99 09/16/17 08:06 98.5 F 108 H 14 116/79 99 Weight Admit Weight 181 lb 7 oz Weight 181 lb 7 oz I&O: 09/15/17 09/16/17 09/17/17 06:59 06:59 06:59 Intake Total 490 Balance 490 Result Diagrams: 09/14/17 00:26 09/14/17 00:26 Phys Exam - Physical Examination HEENT: PERRLA Respiratory: no wheezing, no rales, no rhonchi, clear to auscultation bilateral Cardiovascular: RRR, no significant murmur Gastrointestinal: soft + mild tenderness Musculoskeletal: no edema Dx/Plan (1) Abdominal pain Code(s): R10.9 - UNSPECIFIED ABDOMINAL PAIN Status: Acute (2) Malignant neoplasm of female breast Code(s): C50.919 - MALIGNANT NEOPLASM OF UNSP SITE OF UNSPECIFIED FEMALE BREAST Status: Acute - Plan * Abdominal Pain-resolved * Will hold HIDA scan * Echo is pending- and this can be follow-up as outpatient * Will discuss with Dr. Morillo- possibly can discharge home.
--- NOTE | 2017-09-16 11:16 | DIS ---
DATE OF ADMISSION: 09/14/2017 DATE OF DISCHARGE: 09/16/2017 PRIMARY CARE PHYSICIAN: Williams Otero M.D. DISCHARGE DISPOSITION: Home. PRIMARY DISCHARGE DIAGNOSES: 1. Abdominal pain, resolved. 2. History of metastatic breast cancer. 3. Asthma. DISCHARGE MEDICATIONS: The patient is to continue her usual home medications including calcium carbo eliezer 500 mg q.i.d. as needed, Nexium 40 mg daily, [place] 10/325 mg 1-2 tablets q.8 as needed, Femara 2 .5 mg at bedtime, multivitamins once daily, Ibrance 125 mg at bedtime, simethicone 80 mg as needed, C arafate 1 gram q.i.d., and Ambien 10 mg at bedtime. PROCEDURES DONE DURING ADMISSION: The patient had a CT scan of the abdomen and pelvis in which there was some re-demonstrating findings of diffuse metastatic disease, previously noted liver lesion was stable. There was redemonstration of a pulmonary nodule and nonspecific free fluid and heterogeneity of the uterus. She had an upper endoscopy which was normal. She had a gallbladder ultrasound showi ng small amount of biliary sludge within the gallbladder consistent with chronic gallbladder dyskines ia. There was no evidence of any acute biliary obstruction. There is a hypoechoic liver mass correl ating on a previous CT scan representing probable metastatic disease. CODE STATUS: FULL CODE. ALLERGIES: No known drug allergies. HOSPITAL COURSE: Ms. Guallpa is a very pleasant 37-year-old female that recently underwent laparosc opic oophorectomy. She says that since the surgery, she has been having abdominal pain as well as so me nausea, but no vomiting. The pain was getting unbearable and was not relieved with her medication s for pain at home. She came to the emergency room for evaluation. CT scan of the abdomen was obtai dilcia with the above findings. There was some evidence of metastatic disease, but it was relatively un changed from previous CAT scan. She was evaluated by Gastroenterology and underwent upper endoscopy which was negative. There was some concern that she could have some gallbladder disease to explain h er symptoms. However, the pain that she experienced was actually more on the left side under the rib cage and some in epigastric region. By the time, a HIDA scan was ordered, her symptoms actually impr jessica. It seem to get better actually with sodium bicarbonate and anti-gas medications and it is susp ected that the abdominal pain could possibly due to the gas insufflation from the procedure. The pat ient had a good 36 hours of symptom improvement, so the HIDA scan was canceled and she is being disch arged home. The patient has a resting tachycardia and because some of pain was in the upper chest or upper abdominal region, Cardiology was consulted. She had an echocardiogram, which was pending at t he time of discharge and this can be followed up in the outpatient setting.
[2017-09-16 11:46] VITALS: BP 110/73; TEMP 98.2
--- NOTE | 2017-09-20 17:05 | EKG ---
Test Reason : Blood Pressure : / mmHG Vent. Rate : 108 BPM Atrial Rate : 108 BPM P-R Int : 146 ms QRS Dur : 066 ms QT Int : 320 ms P-R-T Axes : 033 -02 025 degrees QTc Int : 428 ms Sinus tachycardia Moderate voltage criteria for LVH, may be normal variant Borderline ECG Confirmed by ALVA RODRÍGUEZ D.O. ([id number]), video tape editor SAM LASSITER ([id number]) on 09/20/2017 5:04:25 PM Referred By: Confirmed By:ALVA RODRÍGUEZ D.O.
== END 2017-09-16 14:56 | disposition home or self-care (01) | DRG 392 ==
LOC: ERS 22:24 → T4-A 09-14 01:45
PROVIDERS: ADMIT Hospitalist; ATTEND Hospitalist
PROC: 0DJ08ZZ Inspection of Upper Intestinal Tract, Via Natural or Artificial Opening Endoscopic (ICD-10-PCS; principal; 2017-09-14)
DX: R10.12 Left upper quadrant pain (principal); C77.9 Secondary and unspecified malignant neoplasm of lymph node, unspecified; C78.00 Secondary malignant neoplasm of unspecified lung; C78.7 Secondary malignant neoplasm of liver and intrahepatic bile duct; G89.18 Other acute postprocedural pain; R00.0 Tachycardia, unspecified; R07.9 Chest pain, unspecified; J45.909 Unspecified asthma, uncomplicated; C50.911 Malignant neoplasm of unspecified site of right female breast; Z90.11 Acquired absence of right breast and nipple; Z90.722 Acquired absence of ovaries, bilateral; R10.816 Epigastric abdominal tenderness; Z92.3 Personal history of irradiation; Z92.21 Personal history of antineoplastic chemotherapy
CPT/HCPCS: 36415; 71045; 74177; 76705; 80053; 81003; 82553; 83605; 83690; 83735; 84484; 84703; 85025; 85610; 85730; 93005; 93306; 96361; 96372; 96374; 96376; J2270; J1650; J2704; J3010

== ENCOUNTER 2017-11-12 09:07 | Outpatient (CLI) | payer OTHER ==
[2017-11-12] MEDS ORDERED: Iopamidol 370 76% 100 ML VIAL ONE (10:46)
--- NOTE | 2017-11-12 13:15 | CT ---
CT THORAX WITH CONTRAST CT ABDOMEN WITH CONTRAST CT PELVIS WITH CONTRAST: DATE: 11/12/17. 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 TECHNIQUE: IV iodinated contrast media: 80 mL of Isovue 370. Oral contrast media: Redicat. Single phase scans of thorax, abdomen, and pelvis. COMPARISON: CT thorax of 06/27/17. CT abdomen and pelvis of 09/14/17. FINDINGS: Thorax: Again noted is the right subpectoral breast implant following right mastectomy. Right axillary surgi radha clips. In the apical segment of the right upper lobe, there is a new 0.8 x 0.4 x 1.2 cm pulmonary nodule (co deanne image 84 of 155, series 601; axial image 10 of 46, series 3). Of the many tiny, subcentimeter, noncalcified bilateral pulmonary nodules, left more numerous than right, some have become slightly s maller, while others are difficult to visualize now. There is no mediastinal or hilar lymphadenopath y. No pleural effusion or pneumothorax. No cardiomegaly or pericardial effusion. Previously, there were very many osteolytic metastatic bone lesions in the thoracic spine at multiple levels. Many of these have now become sclerotic. For example, there was previously an osteolytic lesion at the left T8 pedicle with involvement of the left posterior T8 vertebral body, measuring approximately 1 x 0.7 cm. This has become slightly larger, and slightly expansile, and is now osteoblastic, measuring 1.4 x 0.9 cm (image 32 of 46, series 3). Skeleton: Furthermore, there are new metastatic bone lesions. For example, small osteolytic lesions at the inf erior tip of the body of the right scapula (image 32 of 46, series 3), new rib lesions (right lateral 3rd predominantly osteolytic, right lateral 5th osteolytic, right lateral 7th osteolytic, left later al 5th osteoblastic). Previously, osteolytic lesion at the left sternal manubrium has become osteobl astic. Two new (midline and right paramedian) small osteoblastic sternomanubrium lesions (all 3 are on image 11 of 46, series 3). Osteolytic lesion at right L5 pedicle and base of transverse process has slightly grown from 0.9 x 1. 1 cm on 09/14/17, to current dimensions of 1.5 x 1 cm, still osteolytic. Interval growth of osteolyti c lesion right L4 vertebral body, currently approximately 1 x 0.9 cm, osteolytic. Multiple moderatel y large osteolytic lesions in the sacral body and bilateral sacral ala have all become slightly large r. For example, the central S1 vertebral body osteolytic lesion that was previously approximately 2. 5 x 1.7 cm, is now 3.2 x 2.2 cm. Previous 1.8 x 1.5 cm osteolytic lesion at roof of left acetabulum is currently 1.9 x 1.7 cm, slightly larger. Slightly inferiorly to that in the left acetabular roof, there is currently a 1.2 x 0.9 cm osteolytic lesion which has also grown. Osteolytic lesion at left femoral head has also slightly grown. Osteolytic at right pubic body has also slightly grown. There is probably an osteolytic lesion at the right humeral head which has also grown, incompletely i juno. Abdomen: Again noted is the mild hepatomegaly and diffusely fatty liver. The moderately hypodense hepatic les ion in a subcapsular location in right lobe hepatic segment 8. Previous dimensions 2.2 x 1.7 x 2.5 c m. This has slightly shrunk in size, with current dimensions of 2.1 x 1.5 x 2.0 cm. No new hepatic lesions. New finding of minimal right hydronephrosis. NO other renal abnormality carleen aterally. Abdominal aorta, adrenals, pancreas, and spleen are normal. No small bowel dilation. No retroperitoneal, mesenteric, or jr hepatis lymphadenopathy. Pelvis: There is little or no free fluid in the pelvic cavity on the current CT. Normal urinary bladder. No iliac chain lymphadenopathy. IMPRESSION: 1. Mixed response to therapy, with worsening in some areas and improvement in others. 2. Overall, skeletal metastatic disease is definitely worse than on 06/27/17 and 09/14/17. 3. While most of the tiny pulmonary metastatic nodules have at least slightly decreased in size, the re is a new 1.2 x 0.8 x 0.4 cm right upper lobe pulmonary nodule, possibly representing a new lung me tastasis. 4. The solitary hepatic lesion has slightly decreased in size since 09/14/17. 5. Hepatic steatosis and hepatomegaly remain. CHIRAG R POS: [facility]
== END 2017-11-12 09:08 | disposition home or self-care (01) ==
LOC: CT 09:07
PROVIDERS: ATTEND Internal Medicine Hematology & Oncology
DX: C50.111 Malignant neoplasm of central portion of right female breast (principal); C78.2 Secondary malignant neoplasm of pleura; C79.51 Secondary malignant neoplasm of bone; K76.0 Fatty (change of) liver, not elsewhere classified; R16.0 Hepatomegaly, not elsewhere classified; K76.9 Liver disease, unspecified; R91.1 Solitary pulmonary nodule
CPT/HCPCS: 71260; 74177

== ENCOUNTER 2017-11-25 11:21 | Day surgery (SDC) | payer OTHER, SELFPAY ==
[2017-11-24 12:29] VITALS: BMI 31.8
[2017-11-25] MEDS ORDERED: Bupivacaine/Epinephrine 0.25% 30 ML VIAL ONE (11:45)
[2017-11-25] MEDS ORDERED: Lidocaine 2% 10 ML INJ ONE (11:46)
[2017-11-25] MEDS ORDERED: Midazolam HCl 5 mg/5 ml Vial ONE (11:47)
[2017-11-25] MEDS ORDERED: Fentanyl 100 MCG/2 ML VIAL ONE (11:47)
[2017-11-25] MEDS ORDERED: Propofol 500 MG/50 ML VIAL ONE (11:53)
[2017-11-25] MEDS ORDERED: CEFAZOLIN/Water 2 GM/20 ML SYRINGE ONE (11:59)
--- NOTE | 2017-11-25 15:40 | RAD ---
RADIOGRAPH CHEST 1 VIEW: DATE: 11-25-17 TIME: 1:49 p.m. HISTORY: 37-year-old female status post Mediport placement. COMPARISON: 09-13-17 FINDINGS: There are no air space densities, pulmonary edema, pneumothorax, or cardiomegaly. The lateral costop hrenic angles are sharp. Since the prior study there has been interval insertion of a left IJ vascula r access port with distal tip overlying the vicinity of the confluence of the bilateral brachiocephal ic veins or upper aspect of the SVC. This is the only interval change. IMPRESSION: 1. No acute cardiopulmonary findings. 2. Interval placement of a left internal jugular implantable vascular access port. POS: [facility]
[2017-11-25] MEDS ORDERED: PROPOFOL 200 MG/20 ML VIAL ONE (16:10)
[2017-11-25] MEDS ORDERED: Lidocaine 1% PF 5 ML VIAL ONE (16:10)
--- NOTE | 2017-11-26 11:23 | OP ---
DATE OF PROCEDURE: 11/25/2017 PROCEDURE: Left internal jugular MediPort placement. PREOPERATIVE DIAGNOSIS: Metastatic breast cancer. POSTOPERATIVE DIAGNOSIS: Metastatic breast cancer. HISTORY OF PRESENT ILLNESS: Ms. Guallpa is a 37-year-old woman with metastatic breast cancer and ve ry poor peripheral IV access. MediPort placement has been requested for chemotherapy and IV access. OPERATIVE PROCEDURE IN DETAIL: After informed consent was obtained and appropriate preoperative anti biotics administered, the patient was taken to the operating room. She was placed in supine position and anesthesia was administered. She was prepped and draped in a standard sterile fashion and place d in Trendelenburg position. Attempts were made to access the left subclavian vein, but no flow was obtained by the standard approach, so the decision was made to place the MediPort in the left interna l jugular position. A sterile ultrasound probe was obtained and the patent compressible left interna l jugular vein identified. This was easily accessed under direct ultrasound guidance on first attemp t with excellent flow of dark venous non-pulsatile blood. A wire was threaded and confirmed to be in the superior vena cava. Local anesthesia was infused to the skin and subcutaneous tissues of the le ft neck and chest. A subcutaneous pocket was created in the left chest and MediPort tubing tunneled to the left IJ access site. The sheath and dilator were placed over the wire and the wire and dilato r removed leaving the sheath in place. The MediPort tubing was clamped and tunneled through the carlson th, which was then split and removed leaving the tubing in place. This was drawn back until the tip was just above the right atrium and superior vena cava. The tubing was then cut to length and secure d to the MediPort hub, which was then secured in the subcutaneous pocket with Prolene sutures. The h ub was accessed with a Larose needle and confirmed to easily aspirate and easily flushed and the cours e of the tubing was confirmed to be smooth without any kinks with the tip appropriately positioned on fluoroscopy. The subcutaneous tissues were reapproximated with 3-0 Monocryl suture and the skin was closed with a running 4-0 subcuticular Monocryl suture. Dermabond dressings were placed at both [facility] and once the Dermabond was dry, the MediPort was accessed with some peripheral IV tubing on a Larose needle, aspirated and flushed with heparinized saline. The tubing was capped and clamped and a sterile occlusive dressing placed for the patient to begin her chemotherapy the following day. Jenn mated blood loss was minimal. There were no complications or no specimens.
== END 2017-11-25 14:48 | disposition home or self-care (01) ==
LOC: SDC 11:21
PROVIDERS: ATTEND Surgery
PROC: 0JH60WZ Insertion of Totally Implantable Vascular Access Device into Chest Subcutaneous Tissue and Fascia, Open Approach (ICD-10-PCS; principal; 2017-11-25)
DX: C50.919 Malignant neoplasm of unspecified site of unspecified female breast (principal); J45.909 Unspecified asthma, uncomplicated; Z79.811 Long term (current) use of aromatase inhibitors; Z79.899 Other long term (current) drug therapy; Z90.10 Acquired absence of unspecified breast and nipple; Z98.890 Other specified postprocedural states
CPT/HCPCS: 71045; C1788; J1642; J2001; J2250; J2704; J3010

== ENCOUNTER 2017-11-27 13:54 | Day surgery (SDC) | payer OTHER ==
[2017-11-27] MEDS ORDERED: Cyclophosphamide 1 GM in Sodium Chloride 0.9% 250 ML 250 ML IVPB SCH (14:30)
[2017-11-27] MEDS ORDERED: Dexamethasone 10 MG/ML VIAL SLOW IVP SCH (14:30)
[2017-11-27] MEDS ORDERED: PALONOSETRON HCL 0.05 MG/ML 5 ML VIAL IVP SCH (14:30)
[2017-11-27] MEDS ORDERED: DOCEtaxel 140 MG in Sodium Chloride 0.9% 250 ML 250 ML IVPB SCH (14:30)
[2017-11-27] MEDS ORDERED: Sodium Chloride 0.9% 40 ML ONE (15:31)
== END 2017-11-27 17:59 | disposition home or self-care (01) ==
LOC: ONC/OP 13:54
PROVIDERS: ATTEND Internal Medicine Hematology & Oncology
DX: Z51.11 Encounter for antineoplastic chemotherapy (principal); C50.111 Malignant neoplasm of central portion of right female breast; C78.2 Secondary malignant neoplasm of pleura; C77.0 Secondary and unspecified malignant neoplasm of lymph nodes of head, face and neck; C78.00 Secondary malignant neoplasm of unspecified lung; C78.7 Secondary malignant neoplasm of liver and intrahepatic bile duct; J45.909 Unspecified asthma, uncomplicated; Z79.899 Other long term (current) drug therapy; Z90.11 Acquired absence of right breast and nipple; Z90.722 Acquired absence of ovaries, bilateral
CPT/HCPCS: 96375; 96413; 96417; A4216; J1100; J1642; J2469; J7050; J9070; J9171

== ENCOUNTER 2017-12-06 04:49 | Inpatient (IN) | payer OTHER ==
[2017-12-06 06:08] LABS: Bilirubin Negative (Negative); Blood, Urine Negative (Negative); Clarity CLEAR (Clear); Glucose, Urine (Dipstick) Negative (Negative); Leukocyte Negative (Negative); Nitrite Negative (Negative); Protein, Urine (Dipstick) Negative (Neg-Trace); Specific Gravity, Urine 1.013 (1.002-1.036); Urobilinogen 0.2 mg/dL (0.2-1.0); pH, Urine 5.5 (5.0-9.0)
[2017-12-06 06:30] LABS: BHCG - Serum Negative (NEGATIVE); Pregs Control Background? CLEAR/WHITE (CLR/WHITE); Pregs Control Bar Appear? YES (CONTROL BAR)
[2017-12-06 06:31] LABS: Hemoglobin 11.3 g/dL (12.0-16.0); Mean Corpuscular HGB CONC 34.3 g/dL (32.0-36.0); Mean Corpuscular Hemoglobin 32.6 pg (27.0-31.0); Mean Corpuscular Volume 95.1 fl (81.0-99.0); Mean Platelet Volume 6.8 fL (7.4-10.4); Platelet Count 372 thou/uL (130-400); RBC Distribution Width 14.9 % (11.5-14.5); Red Blood Cell (RBC) Count 3.47 mill/uL (4.20-5.40); White Blood Cell (WBC) Count 2.2 thou/uL (4.8-10.8)
[2017-12-06 06:39] LABS: ALT (SGPT) 29 U/L (8-55); AST (SGOT) 24 U/L (5-34); Alkaline Phosphatase 184 U/L (40-150); Anion Gap 13 mmol/L (10-20); BUN (Urea Nitrogen) 7 mg/dL (7.0-18.7); Bilirubin, Total 0.5 mg/dL (0.2-1.2); Calc. Creatinine Clearance 0 mL/min (70-130); Calcium 9.7 mg/dL (7.8-10.44); Carbon Dioxide 24 mmol/L (22-29); Chloride 99 mmol/L (98-107); Estimated GFR-MDRD Greater than 90; Globulin 3.5 g/dL (2.4-3.5); Glucose 101 mg/dL (70-105); Potassium 4.2 mmol/L (3.5-5.1); Protein, Total 7.5 g/dL (6.0-8.3); Sodium 132 mmol/L (136-145)
[2017-12-06] MEDS ORDERED: Piperacillin/Tazobactam 3.375 GM VIAL ONE (06:42)
[2017-12-06] MEDS ORDERED: Acetaminophen 500 MG TAB ONE (06:42)
[2017-12-06 06:54] LABS: Band 1 % (5-11); Lymphocytes 61 % (21-51); MDiff Complete? YES; Monocytes 19 % (0-10); Neutrophil 19 % (42-75)
--- NOTE | 2017-12-06 07:52 | RAD ---
CHEST 2 VIEWS: HISTORY: Cough. COMPARISON: 11/25/17. FINDINGS: Stable left-sided MediPort catheter. Normal cardiac silhouette. Lungs and pleural spaces are clear. No pneumothorax or osseous abnormalities. IMPRESSION: No acute cardiopulmonary process. POS: [facility]
[2017-12-06 08:19] LABS: Lipase 19 U/L (8-78)
[2017-12-06] MEDS ORDERED: Ibuprofen 800 MG TAB ONE (08:19)
[2017-12-06 08:24] LABS: CKMB 0.6 ng/mL (0-6.6); Troponin I Less than 0.010 ng/mL (< 0.028)
[2017-12-06 08:28] LABS: CK (CPK) 212 U/L (29-168)
[2017-12-06] MEDS ORDERED: Cefepime 2 GM/10 ML SYR ONE (09:01)
[2017-12-06] MEDS ORDERED: Ondansetron HCl/PF 4 MG/2 ML Vial IVP PRN (11:33)
[2017-12-06] MEDS ORDERED: Acetaminophen 325 MG TAB PO PRN (11:33)
[2017-12-06] MEDS ORDERED: HYDROcodone/Acetaminophen 5/325 mg Tablet PO PRN ×2 (11:33)
[2017-12-06] MEDS ORDERED: Ondansetron ODT 4 MG TAB SL PRN (11:33)
[2017-12-06] MEDS ORDERED: Sodium Chloride 0.9% 1,000 ML IV SCH (11:45)
--- NOTE | 2017-12-06 12:50 | CT ---
CT ANGIOGRAM OF THE CHEST: HISTORY: Status post breast cancer treatment with chemotherapy. Nasal congestion. Body aches. Elevated D-di taj and fever. COMPARISON: None. CORRELATION: Chest, abdomen, and pelvic CT 11/12/17. TECHNIQUE: CT angiogram of the chest was performed in the axial plane. Three-dimensional reformatted images are submitted for interpretation. FINDINGS: Right breast augmentation is noted. There is interval stranding of the anterior mediastinal fat. So me of the contrast appears to be external to the lumen of the catheter and may represent a fibrin she ath versus fracture of the catheter. The thoracic aorta and upper abdominal aorta have a stable dorian rahel. No periaortic fat stranding. Heart size is normal. Adequate contrast opacification of the pulmonary arterial system to the level of the lobar arteries. No filling defect to suggest thromboembolism. Trachea and central bronchi are patent. Redemonstration of an irregular marginated opacity in the ri ght lung apex measuring 1.0 x 1.0 cm (previously measuring 0.8 x 0.4 cm). Stable 4 mm nodule in the lateral aspect of the right lower lobe. Stable pleural-based opacity along the medial aspect of the right lower lobe. Stable focal pleural thickening of the left major fissure. Stable 3 mm nodule in the left upper lobe. Additional nodules noted in the left lung on the previous CT are somewhat diffi cult to appreciate. No significant pleural fluid. No pneumothorax. Heterogeneous enhancement of the liver is noted compatible with fatty infiltration and fat sparing. Redemonstration of a solitary lesion in the right hepatic lobe, incompletely evaluated. Currently, t his lesion measures 2.3 x 1.4 cm (previously measuring 2.1 x 1.5 cm. Extensive osseous metastases with sclerotic foci are noted. IMPRESSION: 1. No evidence of pulmonary artery embolism to the level of the segmental arteries. 2. Osseous metastases are redemonstrated. 3. Multifocal pulmonary nodules, some of which may have decreased in size suggesting partial respons e to therapy. 4. Interval stranding of the anterior mediastinal fat. Correlate for possible mediastinitis or post treatment change. Some of the contrast appears to be external to the lumen of the catheter. Comprom ise of the MediPort catheter versus fibrin sheath are differential considerations. Dedicated contras t evaluation of the MediPort catheter can be performed to confirm leak versus fibrin sheath. POS: [facility]
[2017-12-06] MEDS ORDERED: ISOVUE-370 76%-LOCM 1 ML ONE (13:24)
[2017-12-06] MEDS ORDERED: Iopamidol 300 61% 50 ML VIAL FS ONE (13:33)
[2017-12-06] MEDS ORDERED: Guaifenesin DM 100-10/5 ML UDCUP PO PRN (14:24)
[2017-12-06] MEDS ORDERED: Senokot 8.6 MG TAB PO PRN (14:24)
[2017-12-06] MEDS ORDERED: Zolpidem Tartrate 5 MG TAB PO PRN (14:24)
[2017-12-06] MEDS ORDERED: traMADol HCl 50 MG TAB PO PRN (14:24)
[2017-12-06] MEDS: Acetaminophen 325 MG TAB PO PRN (15:23)
--- NOTE | 2017-12-06 16:47 | RAD ---
FLUOROSCOPIC GUIDED PORT CHECK 12/06/17 INDICATION: Concern for leak. Fluoroscopic time: 0.4 minutes. Total exposure: 543 uGy*m2. TECHNIQUE/FINDINGS: The port site underwent preprocedure fluoroscopic examination. The Larose needle appeared to be within the port insertion site. The catheter flushed but did not aspirate with sterile saline. Following th is 3 mL of isovue 300 was administered through the catheter. There was flow of contrast from the cath eter tip extending retrograde along the distal aspect of the catheter tract consistent with a fibrin sheath. The catheter tip is seen within the region of the brachiocephalic vein. Catheter tubing is in tact. The port is seen just below the left clavicle. The catheter was then flushed with normal saline followed by flushing with heparinized saline. IMPRESSION: 1. Findings most consistent with fibrin sheath of the catheter tip. 2. Catheter tip in the brachiocephalic vein. POS: [facility]
[2017-12-06] MEDS: HYDROcodone/Acetaminophen 10/325 mg Tablet PO PRN (19:01)
[2017-12-06] MEDS ORDERED: Sodium Chloride 0.9% 10 ML ONE (20:35)
[2017-12-06] MEDS ORDERED: Prevnar 13-Val Conj/PF 0.5 ML SYRINGE IM ONE (21:00)
[2017-12-06] MEDS ORDERED: Sodium Chloride 0.9% 500 ML IV SCH (21:00)
[2017-12-06] MEDS ORDERED: Cefepime 1 GM in Sodium Chloride 0.9% 100 ML IVPB SCH (21:00)
[2017-12-06] MEDS ORDERED: Vancomycin HCl 1 GM in Premix Bag 1 BAG IVPB SCH (21:00)
--- NOTE | 2017-12-06 21:18 | HP ---
REASON FOR ADMISSION: Sepsis, immunocompromised. HISTORY OF PRESENTING ILLNESS: The patient gives history of having watery diarrhea from last 3-4 days. Day before yesterday, she had nearly 10 times. She developed fever yesterday around 101. On arrival in the ER, had a temperature of 103. She received a dose of chemotherapy on 11/27/2017. Soon after chemotherapy, she had fever and bone pain for 3 days, but resolved on its own. She is on cyclophosphamide and Taxotere and her first cycle was on 2017. The patient has some mild chest discomfort on deep inspiration in the right parasternal area. No complaints of expectoration, but has some dry cough. No complaints of palpitation, PND or orthopnea. PAST MEDICAL AND SURGICAL HISTORY: History of right breast cancer diagnosed in 2008, for which she has had chemotherapy done then later mastectomy and radiation done for nearly 33 days then. This was all done in [facility]. From then on she has been on tamoxifen. She had a break in 2010 for her first and delivered a healthy male baby. Around 2015, the patient developed nonspecific aches and pains and had neck swelling. She had an ultrasound of neck done and later biopsy was done for the lymph node, which revealed a recurrence of her breast cancer. She has had CT and MRI done, which also showed spread to liver and lungs as well. Her breast cancer was estrogen receptor positive. She was placed on Ibrance, letrozole and Zoladex shots from 03/2017. This year, the patient has had bilateral oophorectomy done and was started on IV chemotherapy, that is cyclophosphamide and Taxotere from 2017. Has had MediPort insertion done on 11/25/[address] Webb. CURRENT MEDICATIONS: The patient received cyclophosphamide and Taxotere, the first cycle on 11/27/2017; Carafate p.r.n. 1 gram; [place] 10/325 mg q.6 hourly p.r.n.; Imodium p.r.n., due to Taxotere; Zantac p.r.n.; Xanax 0.5 mg p.r.n. for anxiety, which she took the first dose yesterday; Flexeril and Ultram, both p.r.n. ALLERGIES: No known drug allergies. PERSONAL HISTORY: Does not abuse alcohol or drugs. No history of smoking. 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 FAMILY HISTORY: Mom at the age of 75 years. She has had history of hypertension and CHF. Father was an asthmatic and of complications from the same at the age of 62 years. REVIEW OF SYSTEMS: The following complete review of systems was negative, unless otherwise mentioned in the HPI or below: Constitutional: Weight loss or gain, ability to conduct usual activities. Skin: Rash, itching. Eyes: Double vision, pain. ENT/Mouth: Nose bleeding, neck stiffness, pain, tenderness. Cardiovascular: Palpitations, dyspnea on exertion, orthopnea. Respiratory: Shortness of breath, wheezing, cough, hemoptysis, fever or night sweats. Gastrointestinal: Poor appetite, abdominal pain, heartburn, nausea, vomiting, constipation, or diarrhea. Genitourinary: Urgency, frequency, dysuria, nocturia. Musculoskeletal: Pain, swelling. Neurologic/Psychiatric: Anxiety, depression. Allergy/Immunologic: Skin rash, bleeding tendency. PHYSICAL EXAMINATION: GENERAL: The patient is a 37-year-old female, who is currently not in any acute distress. VITAL SIGNS: Blood pressure 115/70; on arrival, the patient's blood pressure was 90/60 and was given nearly 3 liters of fluid. Pulse 120 per minute, temperature 103.1 degrees Fahrenheit, respiratory rate 16 per minute, saturating 94% on room air. NECK: Supple, no elevated JVD. HEENT: Eyes: Extraocular muscles are intact. Pupils are reacting to light. Oral cavity: Mucous membranes are moist. No exudates or congestion. CARDIOVASCULAR SYSTEM: S1, S2 heard. Regular rhythm. RESPIRATORY SYSTEM: Air entry 1+ bilateral. No rales or rhonchi. ABDOMEN: Soft, bowel sounds heard. No tenderness, rigidity or guarding. EXTREMITIES: No peripheral edema or calf tenderness. VASCULAR SYSTEM: Peripheral pulses 1+ bilateral, no ischemic ulcerations or gangrene. CENTRAL NERVOUS SYSTEM: No gross focal deficits seen. The patient is alert, awake, oriented well. PSYCHIATRIC: The patient's mood is euthymic. No hallucinations or delusions. LABORATORY AND X-RAY FINDINGS: White count of 2.2, H&H 11 and 33, platelet count 372 with 19% neutrophils, 1% bands, 61% lymphocytes, and 19% monocytes. D -dimer is 2.0. Sodium 132, BUN 7, creatinine 0.7, glucose 101. Lactic acid is 1.4. AST, ALT within normal limits. Alkaline phosphatase 184. CK level is 212. First set of cardiac enzymes are negative. BNP is less than 10, albumin is 4.0. Serum test is negative. Influenza A and B antigens are negative. CT angio chest done shows no evidence of pulmonary embolus. There is osseous metastasis seen, multifocal pulmonary nodules are seen. Interval stranding of the anterior mediastinal fat to correlate for possible mediastinitis or post-treatment change, some of the contrast appears to be external to the lumen of the catheter, compromise of the MediPort catheter versus fibrin sheath or differential considerations and one set of stool is negative for Shiga toxin and Campylobacter. EKG done shows sinus tachycardia at 132 beats per minute with no gross ST-T wave changes. CLINICAL IMPRESSION AND PLAN: The patient will be admitted to telemetry for sepsis with the patient being immunocompromised, possible gastroenteritis versus intolerance to current chemotherapy with severe diarrhea. She will be on Flagyl, vancomycin, cefepime and Levaquin. Lorenzana cultures have been obtained in the ER. We will obtain stool for Clostridium difficile as well. Dr. Goodwin has been consulted for help with possible MediPort leakage and in view of this, a vascular access port check has been ordered, and we will follow up on the same. Her blood pressure is holding up currently with systolic blood pressures around 112 at present. She has received nearly 3 liters of normal saline in the ER. Code status was discussed with the patient and she is a FULL CODE. We will continue to closely monitor her on telemetry. YULI
[2017-12-06] MEDS: Ibuprofen 200 MG TAB PO PRN (21:45)
[2017-12-06] MEDS: Famotidine 20 MG TAB PO SCH (21:45)
[2017-12-06] MEDS: Vancomycin HCl 1.25 GM in Sodium Chloride 0.9% 250 ML 250 ML IVPB SCH (23:50)
[2017-12-06] MEDS: ALPRAZolam 0.5 MG TAB PO PRN (23:54)
[2017-12-07] MEDS: HYDROcodone/Acetaminophen 10/325 mg Tablet PO PRN ×3 (04:54→18:10)
[2017-12-07] MEDS: Ibuprofen 200 MG TAB PO PRN ×3 (05:00→18:36)
[2017-12-07 05:32] LABS: Anion Gap 13 mmol/L (10-20); BUN (Urea Nitrogen) 5 mg/dL (7.0-18.7); Calc. Creatinine Clearance 147 mL/min (70-130); Calcium 8.9 mg/dL (7.8-10.44); Carbon Dioxide 21 mmol/L (22-29); Chloride 108 mmol/L (98-107); Estimated GFR-MDRD Greater than 90; Glucose 101 mg/dL (70-105); Potassium 4.1 mmol/L (3.5-5.1); Sodium 138 mmol/L (136-145)
[2017-12-07 05:47] LABS: Band 2 % (5-11); Eosinophils 2 % (0-10); Hemoglobin 10.1 g/dL (12.0-16.0); Lymphocytes 41 % (21-51); MDiff Complete? YES; Mean Corpuscular HGB CONC 33.5 g/dL (32.0-36.0); Mean Corpuscular Hemoglobin 32.4 pg (27.0-31.0); Mean Corpuscular Volume 96.7 fl (81.0-99.0); Monocytes 36 % (0-10); Neutrophil 19 % (42-75); Platelet Count 298 thou/uL (130-400); RBC Distribution Width 14.8 % (11.5-14.5); Red Blood Cell (RBC) Count 3.11 mill/uL (4.20-5.40); White Blood Cell (WBC) Count 1.6 thou/uL (4.8-10.8)
[2017-12-07] MEDS ORDERED: Linezolid 600 MG TAB PO SCH (09:00)
[2017-12-07] MEDS ORDERED: metroNIDAZOLE 500 MG TAB PO SCH (09:00)
[2017-12-07] MEDS: Vancomycin HCl 1.25 GM in Sodium Chloride 0.9% 250 ML 250 ML IVPB SCH ×2 (09:03→18:32)
[2017-12-07] MEDS: Famotidine 20 MG TAB PO SCH ×2 (09:32→20:30)
[2017-12-07] MEDS: Enoxaparin Sodium 40 MG/0.4 ML SYRINGE SC SCH (09:33)
--- NOTE | 2017-12-07 12:58 | PDOC.PN ---
- Subjective Encounter Start Date: 12/07/17 Encounter Start Time: 09:45 Subjective: had neck swelling to left lat side last night and early am,is resolving now -: fever has come down to 99degrees -: diarrhea has resolved from midnight, no nausea, is amb in hallway - Objective Resuscitation Status: Resuscitation Status FULL:Full Resuscitation MAR Reviewed: Yes Vital Signs & Weight: Vital Signs (12 hours) Temp Pulse Resp BP Pulse Ox 12/07/17 09:30 98.2 F 119 H 16 115/65 95 12/07/17 04:49 99.6 F 125 H 16 116/75 95 Weight Weight 186 lb 12.8 oz I&O: 12/06/17 12/07/17 12/08/17 06:59 06:59 06:59 Intake Total 1040 Output Total 1000 Balance 40 Result Diagrams: 12/07/17 04:25 12/07/17 04:25 Phys Exam - Physical Examination HEENT: PERRLA, moist MMs Neck: no JVD mild edema to left lat neck, no crepitus Respiratory: no wheezing, no rales Cardiovascular: RRR, no significant murmur Gastrointestinal: soft, non-tender, no distention, positive bowel sounds Musculoskeletal: no edema, pulses present Neurological: non-focal, moves all 4 limbs Psychiatric: normal affect, A&O x 3 Dx/Plan (1) Sepsis Code(s): A41.9 - SEPSIS, UNSPECIFIED ORGANISM Status: Acute Qualifiers: Sepsis type: sepsis due to unspecified organism Qualified Code(s): A41.9 - Sepsis, unspecified organism (2) Acute gastroenteritis Code(s): K52.9 - NONINFECTIVE GASTROENTERITIS AND COLITIS, UNSPECIFIED Status : Resolved (3) Leucopenia Code(s): D72.819 - DECREASED WHITE BLOOD CELL COUNT, UNSPECIFIED Status: Acute Qualifiers: Neutropenia type: secondary to cancer chemotherapy (4) Chronic anemia Code(s): D64.9 - ANEMIA, UNSPECIFIED Status: Chronic (5) Severe dehydration Code(s): E86.0 - DEHYDRATION Status: Acute Comment: resolved (6) Malignant neoplasm of female breast Code(s): C50.919 - MALIGNANT NEOPLASM OF UNSP SITE OF UNSPECIFIED FEMALE BREAST Status: Chronic Qualifiers: Breast location: unspecified site of breast Laterality: right - Plan has issues accessing her mediport plus some left lat neck swelling -: T.max of 99, diarrhea has resolved, is immunosuppressed, 1/2 bld cs has sta -: -ph, due to poor iv access will start on zyvox and levaquin for now -: Nursing tried nearly 10-12 times overnight to get iv access -: sbp around 110, encourage po fluid intake * . is consulted due to restricted zyvox use. Likely dc plan in am if cs are -ve and she remains afebrile. Her next cycle of chemo is on , Pt will f/u with for her mediport issue. Tx pt to onc, pt and were given updates about current plan. Review of Systems - Medications/Allergies Allergies/Adverse Reactions: Allergies Allergy/AdvReac Type Severity Reaction Status Date / Time No Known Allergies Allergy Verified 11/24/17 12:30 Medications: Current Medications Acetaminophen (Tylenol) 650 mg PO Q4H PRN PRN Reason: Headache/Fever or Pain Last Admin: 12/06/17 15:23 Dose: 650 mg Hydrocodone Bitart/Acetaminophen ([place] 10/325) 1 tab PO Q6H PRN PRN Reason: Severe Pain (7-10) Last Admin: 12/07/17 11:35 Dose: 1 tab Alprazolam (Xanax) 0.5 mg PO HS PRN PRN Reason: Anxiety Last Admin: 12/06/17 23:54 Dose: 0.5 mg Enoxaparin Sodium (Lovenox) 40 mg SC 0900 [facility] Last Admin: 12/07/17 09:33 Dose: 40 mg Famotidine (Pepcid) 20 mg PO BID [facility] Last Admin: 12/07/17 09:32 Dose: 20 mg Guaifenesin/Dextromethorphan (Robitussin Dm) 15 ml PO Q4H PRN PRN Reason: Cough Ibuprofen (Motrin) 400 mg PO Q8H PRN PRN Reason: fever Last Admin: 12/07/17 11:36 Dose: 400 mg Levofloxacin (Levaquin) 500 mg PO 0600 [facility] Linezolid (Zyvox) 600 mg PO Q12HR [facility] Last Admin: 12/07/17 09:33 Dose: 600 mg Senna (Senokot) 2 tab PO HSPRN PRN PRN Reason: Constipation Zolpidem Tartrate (Ambien) 10 mg PO HS PRN PRN Reason: Insomnia
[2017-12-07] MEDS: Lactated Ringer's 1,000 ML IV SCH (18:38)
--- NOTE | 2017-12-07 18:49 | SPC ---
ULTRASOUND GUIDED LEFT UPPER EXTREMITY PICC LINE PLACEMENT: Date: 12/07/17 HISTORY: MediPort not functioning well, left neck swelling. Placement of left-sided PICC line is requested for difficult IV access and long-term IV antibiotics/chemotherapy. TECHNIQUE: The procedure, including risks and complications, were explained to the patient and informed consent was obtained. The patient was placed on the angiography table in the supine position. The left upper extremity was meticulously prepped and draped in the usual sterile fashion. An appropriate access sit e was determined with ultrasound guidance. The skin and subcutaneous tissues were infiltrated with bu ffered 1% lidocaine for local anesthesia at the intended puncture site. The left basilic vein was acc essed utilizing micropuncture technique and concurrent real-time ultrasound guidance. A 5 [place] peel -away sheath was placed. The catheter was measured and cut to the appropriate length. The catheter wa s placed over the guidewire with the tip positioned overlying the cavoatrial junction. The guidewire and peel-away sheath were removed. The catheter was accessed and aspirated/flushed easily. The davide ter was secured to the skin utilizing a StatLock device, and a dry, sterile dressing was placed. The patient tolerated the procedure well and without immediate complication. FINDINGS: Technically successful placement of a single lumen 5 Barb[place] 39.5 cm PICC line via the left basilic ve in. The tip of the catheter overlies the cavoatrial junction. FLUOROSCOPY: Total fluoroscopy time was 0.4 minutes with total dose of 1,823 mGy*cm^2. IMPRESSION: Technically successful left upper extremity PICC line placement. POS: KAMAR
[2017-12-07] MEDS ORDERED: Vancomycin HCl 1 GM in Premix Bag 1 BAG IVPB SCH (21:00)
[2017-12-07] MEDS: Cefepime 1 GM in Sodium Chloride 0.9% 100 ML IVPB SCH (21:14)
[2017-12-08] MEDS: HYDROcodone/Acetaminophen 10/325 mg Tablet PO PRN ×3 (02:17→18:43)
[2017-12-08] MEDS: Vancomycin HCl 1.25 GM in Sodium Chloride 0.9% 250 ML 250 ML IVPB SCH ×2 (05:55→18:35)
[2017-12-08] MEDS ORDERED: Morphine 4 MG/ML VIAL SLOW IVP PRN (06:28)
[2017-12-08] MEDS: Morphine 4 MG/ML VIAL SLOW IVP PRN ×3 (06:37→18:44)
[2017-12-08 08:34] LABS: Hemoglobin 9.7 g/dL (12.0-16.0); Mean Corpuscular HGB CONC 34.4 g/dL (32.0-36.0); Mean Corpuscular Hemoglobin 32.6 pg (27.0-31.0); Mean Corpuscular Volume 94.7 fl (81.0-99.0); Mean Platelet Volume 6.3 fL (7.4-10.4); Platelet Count 316 thou/uL (130-400); Red Blood Cell (RBC) Count 2.96 mill/uL (4.20-5.40); White Blood Cell (WBC) Count 2.6 thou/uL (4.8-10.8)
[2017-12-08 08:54] LABS: ALT (SGPT) 25 U/L (8-55); AST (SGOT) 25 U/L (5-34); Albumin 3.3 g/dL (3.5-5.0); Alkaline Phosphatase 144 U/L (40-150); Anion Gap 9 mmol/L (10-20); BUN (Urea Nitrogen) 5 mg/dL (7.0-18.7); Bilirubin, Total 0.3 mg/dL (0.2-1.2); Calc. Creatinine Clearance 149 mL/min (70-130); Calcium 8.8 mg/dL (7.8-10.44); Carbon Dioxide 28 mmol/L (22-29); Chloride 100 mmol/L (98-107); Estimated GFR-MDRD Greater than 90; Globulin 3.1 g/dL (2.4-3.5); Glucose 86 mg/dL (70-105); Potassium 3.8 mmol/L (3.5-5.1); Protein, Total 6.4 g/dL (6.0-8.3); Sodium 133 mmol/L (136-145)
[2017-12-08 09:40] LABS: Band 10 % (5-11); Blast 1 % (0-0); Eosinophils 1 % (0-10); Hypochromia SLIGHT = 6-15 cells (100X) (0-5/hpf); Lymphocytes 47 % (21-51); MDiff Complete? YES; Metamyelocyte 3 % (0-0); Monocytes 20 % (0-10); Myelocyte 7 % (0-0); Neutrophil 8 % (42-75); Nucleated RBC 2 % (0); PLT Morphology Comment Appears Adequate; Reactive Lymphocytes 2 % (0-10); Reflex for Review?? NO
[2017-12-08] MEDS: Enoxaparin Sodium 40 MG/0.4 ML SYRINGE SC SCH (10:19)
[2017-12-08] MEDS: Famotidine 20 MG TAB PO SCH ×2 (10:19→21:00)
[2017-12-08] MEDS: Cefepime 1 GM in Sodium Chloride 0.9% 100 ML IVPB SCH (10:20)
[2017-12-08] MEDS ORDERED: Simethicone Chewable 80 MG TAB PO PRN (11:31)
[2017-12-08 11:38] VITALS: BMI 34.1
--- NOTE | 2017-12-08 11:52 | CON ---
DATE OF CONSULTATION: 12/08/2017 REASON FOR CONSULTATION: Concern with inflammatory process left port. HISTORY OF PRESENT ILLNESS: A 37-year-old patient who is originally from [facility] and developed a loi gnosis of right-sided breast cancer initially established in [facility]. The patient had treatment in [place], [place] about 8 years ago and she had chemo and radiation therapy and then mastectomy and then was doing well until 2016 when she developed neck pain and lymphadenopathy in the right side of the neck, which showed recurrence of the same breast cancer, which was estrogen positive. She had eviden ce of liver and lung mets. She was placed on Ibrance, which generic name is palbociclib, a selective inhibitor of the cyclin-dependent kinases developed for ER positive, HER-2 negative breast cancer. She is also on hormonal therapy with letrozole, Zoladex and then bilateral oophorectomy. She has bee n started recently on cyclophosphamide and Taxotere and for that had a MediPort inserted by Dr. Manjit summers at the beginning of this month. More recently, she developed diarrhea and fever associated with w orsening pain at the site of the port and left side of the neck region. She was admitted yesterday a nd started on broad spectrum antimicrobial therapy and had a PICC line inserted in the left upper ext remity. She has some headaches. No visual symptoms, sore throat, aphasia or dysphagia. Chronic marlen k pain, which is felt to be associated with breast cancer mets to bone. No abdominal pain, no diarrh ea, no genitourinary symptoms. No other joint symptoms. PAST MEDICAL HISTORY: Breast cancer diagnosed in 2008, initially treated in [place], [place] with sarah motherapy and mastectomy, radiation therapy, now with recurrence with liver and lung mets and bone me ts as well as lymph node metastases. ALLERGIES: None. CURRENT MEDICATIONS: Tylenol, Lloyd, Xanax, cefepime, enoxaparin, Pepcid, Motrin, levaquin, morphine , Senokot and vancomycin. SOCIAL HISTORY: Originally from [place]. Never a smoker. 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 FAMILY HISTORY: Hypertension, CHF, asthma. PHYSICAL EXAMINATION: VITAL SIGNS: T-max 102.7, currently 100.1, blood pressure 140/72, pulse 130, respirations 16-24, O2 sat 95%. GENERAL: Pleasant young female, in no acute distress. SKIN: Shows a port incision, which is healed and the area of the IJ insertion site with swelling, mi ld erythema and moderate to marked tenderness. There is moderate tenderness at the port site as well . No crepitus is noted. She has a PICC line in the left upper extremity. No lymphadenopathy noted. HEENT: Ocular movements conjugate. Oral cavity normal. Numerous teeth in place in excellent shape. LUNGS: Symmetric. Clear breath sounds. HEART: S1, S2 regular rate. No S3, S4. ABDOMEN: Soft, not distended or tender. No ascites. No bladder distention. EXTREMITIES: No joint inflammatory activity. Trace edema in the lower extremities. Pulses 1+ in do rsalis pedis. She moves extremities equally. NEUROLOGIC: Cognitive function is intact. LABORATORY DATA: White cell count is 2.2 and now 2.6, hemoglobin 9.7, platelets 316,000 with neutrop hil counts approximately 400, eosinophils 1%. Sodium 133, creatinine 0.7. Liver profile normal. Al bumin 3.3, lipase 19. Urinalysis was normal. Two sets of blood cultures with coagulase negative Sta ph, which 1 out of 2 sets of blood cultures coagulase negative Staph identified as Staphylococcus lug vadimensis. This is a venous sample from peripheral stick. Influenza A and B negative. IMAGING STUDIES: We have a CT angio. No evidence of pulmonary embolism, osseous metastases, multifo radha pulmonary nodules, stranding anterior mediastinal fat and possible contrast extravasation externa l to the lumen of the catheter. ASSESSMENT: Breast cancer with recurrence with bone, lungs and liver mets on chemotherapy including cyclophosphamide, hormonal therapy and cyclase inhibitor, who now presents with possible MediPort com plications. The patient has tenderness and swelling at the sites associated with fever. Most likely scenario is a port infection of the usual pathogens, gram negative rods, Staphylococcus aureus and c oagulase negative staphylococci. Staphylococcus lugdunensis tends to have a more aggressive behavior such as the one seen with Staphylococcus aureus. Continue cefepime and vancomycin. Discontinue lev ofloxacin and removal of the device is advisable at this point in time. Monitor blood cultures going forward and the one positive thus far could represent contamination of the sample or true bacteremia .
[2017-12-08] MEDS: Acetaminophen 325 MG TAB PO PRN ×2 (13:04→19:41)
[2017-12-08] MEDS: Lactated Ringer's 1,000 ML IV SCH ×2 (13:12→22:37)
--- NOTE | 2017-12-08 14:22 | CON ---
DATE OF CONSULTATION: 12/07/2017 CHIEF COMPLAINT: Concern regarding left internal jugular MediPort dysfunction. HISTORY OF PRESENT ILLNESS: Patient is a 37-year-old -[place] female. She had presented wit h metastatic breast cancer and had a MediPort placed by Dr. Katie Webb on 11/25/2017. She attemp neptali to access the left subclavian vein, but was unable to do so and thereafter, accessed the left int ernal jugular vein and placed a MediPort in the standard fashion. The catheter tip was in the brachi ocephalic vein rather than in the superior vena cava. I have told that she utilizes this for chemoth erapy uneventfully. The patient returned to the hospital; however, on 12/06/2017 with fever. She wa s neutropenic related to her chemotherapy and initially had a white blood cell count of 2.2. There w ere concerns given her symptoms regarding a pulmonary embolus and therefore a CT angiogram was obtain ed on 12/06/2017. There was a concern in that study that there may be some compromise of the cathete r as there was contrast that was found in an aberrant fashion around the catheter tip. It is noted t hat the contrast; however entered the vascular system diffusely. The patient did not have any port r elated symptoms. Because of concerns regarding the catheter integrity, I was contacted and I recomme nded a port study. This was also performed on 12/06/2017. This revealed concerns regarding some ret rograde flow of the contrast at the tip of the catheter potentially consistent with a fibrin sheath a round the catheter. Did not dictate in note whether there was contrast that emptied into the central venous system or not. I presumed that it did and therefore recommended use of her MediPort. Andrew t tells me she was aggressively hydrated thereafter and at some point during the course of her hydrat ion, she developed swelling and discomfort in her left neck. Following this, her port was decannulat ed secondary to concerns regarding its functional use. Attempts were made at obtaining a peripheral IV and numerous attempts were unsuccessful. I was therefore asked to see the patient on 12/07/2017. I reviewed her history as well as her surgery and all of her x-ray studies. PHYSICAL EXAMINATION: VITAL SIGNS: On examination, she was afebrile as I was seeing her up to temperature of 101.0, pulse is 126, blood pressure 114/55. CHEST: The left chest port site had a nicely healed incision with no fluctuance or tenderness over t he port. It was easily palpable and should be easy to utilize. The internal jugular incision site w as also nicely healed. There was minimal palpable tenderness over the course of the catheter or over the neck. When she is upright; however, it is easy to see that there is some swelling in the left s upraclavicular fossa and the base of the left neck. She tells me this is improved compared to previo usly before the port usage was stopped. ASSESSMENT: Patient has essentially no peripheral vascular access and has some degree of cord dysfun ction. This may be related to the catheter tip being within the brachiocephalic vein, but I would th ink that should be adequate being in that vein coursing down from the internal jugular vein. Nonethe less, there is some abnormality with contrast passing retrograde and along the catheter and perhaps f luid tracked along this and leaked into her neck along the catheter site. Since this seemed to work appropriately for a good amount of her early hospital course and for her chemotherapy, it would be re asonable to attempt to preserve the port and see if it still functions appropriately for further chem otherapy. That being said, she needs IV access for antibiotics for her current neutropenic fever. I spoke with her Hospitalist, Dr. Baker as well as with patient's brother, Dr. Guallpa. Option s at this time would be a central line, a PICC line, or a midline catheter. I would not replace her port at this time with her being afebrile as there is a possibility of bacteremia leading to a port i nfection. Dr. Guallpa favored avoiding the central line placement and therefore Radiology will be c onsulted for a PICC line. I think this is an appropriate option. She may still end up requiring a r evisional procedure of her port depending on how it functions with her next chemotherapy. If there i s, in fact, a fibrin sheath over the tip of the catheter (which is very early for fibrin sheath devel opment), then it will not be functional for drawing blood, but could still be functional for giving h er medication. If there are chemotherapy issues, then she will need MediPort revision, replacement o f a new MediPort. Since she now will be given a PICC line, I will see the patient as needed and will otherwise sign off.
--- NOTE | 2017-12-08 15:17 | PDOC.PN ---
- Subjective Encounter Start Date: 12/08/17 Encounter Start Time: 10:30 Subjective: c/o neck swelling and pain over left lateral aspect -: no diarrhea and is now worried about being constipation -: mild abd pain in the mid abdomen, no radiation, is passing flatus - Objective Resuscitation Status: Resuscitation Status FULL:Full Resuscitation MAR Reviewed: Yes Vital Signs & Weight: Vital Signs (12 hours) Temp Pulse Resp BP Pulse Ox 12/08/17 12:41 100.6 F H 134 H 24 H 131/62 95 12/08/17 08:00 100.1 F H 130 H 24 H 95 12/08/17 07:55 100.1 F H 130 H 24 H 147/72 H 95 12/08/17 06:01 98.9 F 129 H 16 135/78 98 Weight Admit Weight 186 lb 12.8 oz Weight 186 lb 12.8 oz I&O: 12/07/17 12/08/17 12/09/17 06:59 06:59 06:59 Intake Total 1667 509 2581 Output Total 1000 Balance 40 865 1030 Result Diagrams: 12/08/17 08:05 12/08/17 08:05 Phys Exam - Physical Examination HEENT: PERRLA, moist MMs Neck: no JVD mild fullness over left lat neck specially when she tries to stand up Respiratory: no wheezing, no rales Cardiovascular: RRR, no significant murmur Gastrointestinal: soft, no distention, positive bowel sounds no rigidity or guarding Musculoskeletal: no edema, pulses present Neurological: non-focal, moves all 4 limbs Psychiatric: normal affect, A&O x 3 Dx/Plan (1) Sepsis Code(s): A41.9 - SEPSIS, UNSPECIFIED ORGANISM Status: Acute Qualifiers: Sepsis type: sepsis due to unspecified organism Qualified Code(s): A41.9 - Sepsis, unspecified organism (2) Acute gastroenteritis Code(s): K52.9 - NONINFECTIVE GASTROENTERITIS AND COLITIS, UNSPECIFIED Status : Resolved (3) Leucopenia Code(s): D72.819 - DECREASED WHITE BLOOD CELL COUNT, UNSPECIFIED Status: Acute Qualifiers: Neutropenia type: secondary to cancer chemotherapy (4) Chronic anemia Code(s): D64.9 - ANEMIA, UNSPECIFIED Status: Chronic (5) Severe dehydration Code(s): E86.0 - DEHYDRATION Status: Resolved Comment: resolved (6) Malignant neoplasm of female breast Code(s): C50.919 - MALIGNANT NEOPLASM OF UNSP SITE OF UNSPECIFIED FEMALE BREAST Status: Chronic Qualifiers: Breast location: unspecified site of breast Laterality: right - Plan is on vanc, cefepime and off levaquin -: d/w , mediport will be removed by covering -: stool studies x1 -ve, adv to get CT abd/pelvis with oral contrast but pt re -: -fused, echo to r/o veg, usg venous doppler -: 1/ blood cs is +ve for coag -ve staph, ?contamination * . Review of Systems - Medications/Allergies Allergies/Adverse Reactions: Allergies Allergy/AdvReac Type Severity Reaction Status Date / Time No Known Allergies Allergy Verified 11/24/17 12:30 Medications: Current Medications Acetaminophen (Tylenol) 650 mg PO Q4H PRN PRN Reason: Headache/Fever or Pain Last Admin: 12/08/17 13:04 Dose: 650 mg Hydrocodone Bitart/Acetaminophen ([place] 10/325) 1 tab PO Q6H PRN PRN Reason: Severe Pain (7-10) Last Admin: 12/08/17 07:55 Dose: 1 tab Alprazolam (Xanax) 0.5 mg PO HS PRN PRN Reason: Anxiety Last Admin: 12/06/17 23:54 Dose: 0.5 mg Enoxaparin Sodium (Lovenox) 40 mg SC 0900 [facility] Last Admin: 12/08/17 10:19 Dose: 40 mg Famotidine (Pepcid) 20 mg PO BID [facility] Last Admin: 12/08/17 10:19 Dose: 20 mg Guaifenesin/Dextromethorphan (Robitussin Dm) 15 ml PO Q4H PRN PRN Reason: Cough Lactated Ringer's (Lactated Ringer's) 1,000 mls @ 75 mls/hr IV .[id number] [facility] Last Admin: 12/08/17 13:12 Dose: 1,000 mls Vancomycin HCl 1.25 gm/ Sodium (Chloride) 250 mls @ 166.667 mls/hr IVPB 0600, 1800 [facility] Last Admin: 12/08/17 05:55 Dose: 250 mls Cefepime HCl 2 gm/ Sodium (Chloride) 100 mls @ 200 mls/hr IVPB Q12HR [facility] Ibuprofen (Motrin) 400 mg PO Q8H PRN PRN Reason: fever Last Admin: 12/07/17 18:36 Dose: 400 mg Miscellaneous Medication (Pharmacy To Dose) 1 each IVPB PRN PRN PRN Reason: . Morphine Sulfate (Morphine) 2 mg SLOW IVP Q4H PRN PRN Reason: Chest Pain/BP Elevations Last Admin: 12/08/17 10:18 Dose: 2 mg Morphine Sulfate (Morphine) 2 mg SLOW IVP Q4H PRN PRN Reason: PAIN 7-10 Senna (Senokot) 2 tab PO HSPRN PRN PRN Reason: Constipation Simethicone (Mylicon Chewable) 80 mg PO QIDPRN PRN PRN Reason: Gas Pain Last Admin: 12/08/17 11:50 Dose: 80 mg Sodium Chloride (Flush - Normal Saline) 10 ml IVF PRN PRN PRN Reason: Saline Flush Sodium Chloride (Flush - Normal Saline) 10 ml IVF BID [facility]ON Last Admin: 12/08/17 10:21 Dose: 10 ml Zolpidem Tartrate (Ambien) 10 mg PO HS PRN PRN Reason: Insomnia
--- NOTE | 2017-12-08 16:03 | CON ---
DATE OF CONSULTATION: 12/08/2017 REASON FOR CONSULTATION: Breast cancer. HISTORY OF PRESENT ILLNESS: Ms. Guallpa is a 37-year-old -[place] female who had her first cycle of chemotherapy consisting of Taxotere and Cytoxan on 11/27/2017. She developed fever for appr oximately 3 days, afterwards it resolved and then she began to have diarrhea. She was seen on Friday . Her diarrhea had slowed down. She was instructed to take Imodium. She was well hydrated. She adams d no fever at that time; however, her white count was 2.1. She was instructed on neutropenic precaut ions and instructed to call for fever. Unfortunately, her fever returned Friday night and was high a s 102.7 on arrival. She was admitted for neutropenic fever. She complained of swelling of her left chest and neck. She had a MediPort study which showed possible fibrin sheath. She did receive IV hy dration through the MediPort and now has soft tissue swelling. Dr. Eng has seen the patient. She has had blood culture and urine culture positive for coagulase negative Staphylococcus. Her fluid adams s been negative. Campylobacter is negative. She complains of unrelenting overall pain. Denies any shortness of breath. She had a recent ultrasound of her leg that it has not returned. That has not been read yet. Her CT angiogram was negative for PE. PAST MEDICAL HISTORY: 1. Stage IV, ER positive, HER-2 negative breast cancer with bone mets, diagnosed since 2007. 2. Asthma. PAST SURGICAL HISTORY: 1. Right mastectomy in 2008. 2. MediPort placement 11/2007. 3. Bilateral oophorectomy, 08/2017. ALLERGIES: No known drug allergies. HOME MEDICATIONS: 1. Xanax 0.5 mg p.o. at bedtime p.r.n. 2. Flexeril p.r.n. 3. [place] 10/325 p.r.n. 4. Tramadol p.r.n. 5. Ambien p.r.n. FAMILY HISTORY: No history of breast cancer. SOCIAL HISTORY: , has one child. Lives with brother. No alcohol, tobacco or illicit drug use. REVIEW OF SYSTEMS: CONSTITUTIONAL: Positive for fever, chills, night sweats. EYES: No blurred or double vision. ENT: No pain, hoarseness, sore throat, or dysphagia. CARDIOVASCULAR: Regular rate and rhythm. LUNGS: Clear. ABDOMEN: Soft, nontender, bowel sounds are positive. EXTREMITIES: No clubbing, cyanosis. She has 1+ swelling in her left chest, shoulder and neck. SKIN: No rash. VICKI TOLOGIC: No petechia or purpura. NEUROLOGIC: Nonfocal. PSYCHIATRIC: The patient is alert and kalli ented and appropriate. PERTINENT LABORATORY BARBARA AND IMAGING DATA: Current WBCs are 2.6, hemoglobin 9.7, hematocrit 28.1, pl atelet count 316,000, 8% neutrophils, 10% bands, 47% lymphocytes. Sodium is 133, potassium 3.8, chlo ride 100, CO2 is 28, BUN is 5, creatinine 0.7, calcium is 8.8, total bilirubin is 0.3, AST is 25, ALT is 25, alkaline phosphatase is 144. BMP is negative. Serum total protein 6.4, albumin 3.3, and malcolm bulin 3.1. CT angio showed no pulmonary embolus. IMPRESSION: 1. Stage IV, ER positive, HER-2 negative breast cancer status post cycle 1 of Taxotere and Cytoxan. 2. Neutropenic fever. 3. Possible MediPort dysfunction. DISCUSSION: Patient is on IV antibiotics. Her diarrhea has improved. She continues to have low gra de fever in the evening. There is some discussion of a MediPort removal. She has had a left PICC li ne placed, which can be used for chemotherapy. Her next cycle of chemo is due 12/17/2017. She will see Dr. Duran prior to this cycle. We will follow her hospital course closely. Thank you for the consult.
--- NOTE | 2017-12-08 16:20 | ULT ---
VENOUS DUPLEX SONOGRAM BILATERAL LOWER EXTREMITY: Date: 12/08/17 HISTORY: Bilateral leg pain and edema. FINDINGS: Each common femoral vein and greater saphenous junction were evaluated, along with each femoral, deep femoral, popliteal, and posterior tibial vein. There is good color and spectral Doppler flow, compre ssion, and augmentation. IMPRESSION: No sonographic evidence of deep venous thrombosis within either lower extremity. POS: TPC
--- NOTE | 2017-12-08 17:06 | PRG ---
DATE OF SERVICE: 12/08/2017 SUBJECTIVE: I discussed with the primary team. History of fevers of uncertain etiology, leukopenia, MediPort is not functioning properly, question of a fibrin sheath and possible slow extravasation at the neck entrance wound. ASSESSMENT: Port dysfunction. PLAN: We will remove the MediPort today. It could always be put back in later once her neutropenia and fevers have resolved.
[2017-12-08] MEDS: Cefepime 2 GM in Sodium Chloride 0.9% 100 ML IVPB SCH (21:13)
[2017-12-08] MEDS: Docusate 100 MG CAP PO SCH (21:32)
[2017-12-09] MEDS: ALPRAZolam 0.5 MG TAB PO PRN (00:01)
[2017-12-09] MEDS: Acetaminophen 325 MG TAB PO PRN ×2 (03:07→11:17)
[2017-12-09] MEDS: Morphine 4 MG/ML VIAL SLOW IVP PRN (03:09)
[2017-12-09 05:52] LABS: ALT (SGPT) 28 U/L (8-55); AST (SGOT) 31 U/L (5-34); Albumin 3.6 g/dL (3.5-5.0); Alkaline Phosphatase 146 U/L (40-150); Anion Gap 13 mmol/L (10-20); BUN (Urea Nitrogen) 6 mg/dL (7.0-18.7); Bilirubin, Total 0.4 mg/dL (0.2-1.2); Calc. Creatinine Clearance 147 mL/min (70-130); Calcium 9.2 mg/dL (7.8-10.44); Carbon Dioxide 26 mmol/L (22-29); Chloride 103 mmol/L (98-107); Estimated GFR-MDRD Greater than 90; Globulin 3.3 g/dL (2.4-3.5); Glucose 105 mg/dL (70-105); Potassium 3.8 mmol/L (3.5-5.1); Protein, Total 6.9 g/dL (6.0-8.3); Sodium 138 mmol/L (136-145)
[2017-12-09 05:53] LABS: Vancomycin, Trough 8.5 ug/mL
[2017-12-09 06:13] LABS: Band 8 % (5-11); Eosinophils 3 % (0-10); Hemoglobin 10.1 g/dL (12.0-16.0); Lymphocytes 39 % (21-51); MDiff Complete? YES; Mean Corpuscular HGB CONC 34.8 g/dL (32.0-36.0); Mean Corpuscular Hemoglobin 32.6 pg (27.0-31.0); Mean Corpuscular Volume 93.8 fl (81.0-99.0); Mean Platelet Volume 6.8 fL (7.4-10.4); Metamyelocyte 3 % (0-0); Monocytes 21 % (0-10); Myelocyte 3 % (0-0); Neutrophil 23 % (42-75); Nucleated RBC 1 % (0); Platelet Count 345 thou/uL (130-400); RBC Distribution Width 15.6 % (11.5-14.5); White Blood Cell (WBC) Count 4.1 thou/uL (4.8-10.8)
[2017-12-09] MEDS ORDERED: Vancomycin HCl 1.75 GM in Sodium Chloride 0.9% 500 ML IVPB SCH (06:15)
[2017-12-09] MEDS ORDERED: Propofol 500 MG/50 ML VIAL ONE (08:37)
[2017-12-09] MEDS ORDERED: Midazolam HCl 2 mg/2 ml Vial ONE (08:37)
[2017-12-09] MEDS ORDERED: Famotidine/PF 20 mg/2ml Vial ONE (08:37)
[2017-12-09] MEDS ORDERED: Fentanyl 100 MCG/2 ML VIAL ONE (08:37)
[2017-12-09] MEDS ORDERED: Lidocaine 2% 10 ML INJ ONE (08:53)
[2017-12-09] MEDS ORDERED: Bupivacaine/Epinephrine 0.25% 30 ML VIAL ONE (08:53)
--- NOTE | 2017-12-09 09:45 | OP ---
DATE OF PROCEDURE: 12/09/2017 PREOPERATIVE DIAGNOSIS: Infected MediPort. POSTOPERATIVE DIAGNOSIS: Infected MediPort. PROCEDURE: Removal of MediPort (tunneled central line subcutaneous port). SURGEON: Carlos Kaur M.D. ANESTHESIA: TIVA, local. ESTIMATED BLOOD LOSS: Minimal. COMPLICATIONS: None. SPECIMEN: Tip of the catheter sent for culture. TECHNIQUE: The patient was taken to the operating room and placed supine on the table. After sedati on was obtained, her right upper chest and neck is prepped and draped in a sterile fashion. Local an esthetic was infiltrated with previous MediPort incision. This incision is open and MediPort was eas farrukh removed. The tract going up towards the neck was oversewn using a 3-0 Monocryl. Subcutaneous ti ssues were irrigated, closed using 3-0 Monocryl, 4-0 Monocryl, and Dermabond. The patient went to re covery in stable condition. All instruments counts, needle counts and lap counts are correct.
[2017-12-09] MEDS: Docusate 100 MG CAP PO SCH ×2 (11:10→21:08)
[2017-12-09] MEDS: HYDROcodone/Acetaminophen 10/325 mg Tablet PO PRN ×2 (11:10→16:55)
[2017-12-09] MEDS: Polyethylene Glycol 3350 17 GM Packet PO SCH (11:11)
[2017-12-09] MEDS: Cefepime 2 GM in Sodium Chloride 0.9% 100 ML IVPB SCH ×3 (13:31→23:50)
[2017-12-09] MEDS: Famotidine 20 MG TAB PO SCH ×2 (13:35→21:05)
[2017-12-09] MEDS: Lactated Ringer's 1,000 ML IV SCH (14:00)
[2017-12-09] MEDS ORDERED: PROPOFOL 200 MG/20 ML VIAL ONE (14:03)
[2017-12-09] MEDS ORDERED: Lidocaine 1% PF 5 ML VIAL ONE (14:03)
--- NOTE | 2017-12-09 15:31 | PDOC.PN ---
- Subjective Encounter Start Date: 12/09/17 Encounter Start Time: 10:15 Pablito is seen today on IV antibitoiocs for bactremia from Port Cath infection. on IV antibiotics - Objective Resuscitation Status: Resuscitation Status FULL:Full Resuscitation MAR Reviewed: Yes Vital Signs & Weight: Vital Signs (12 hours) Temp Pulse Resp BP BP Pulse Ox 12/09/17 14:00 99.2 F 138 H 20 136/63 96 12/09/17 11:40 161/76 H 12/09/17 11:10 153/80 H 12/09/17 10:40 174/93 H 12/09/17 10:25 100.6 F H 130 H 20 126/83 97 12/09/17 07:23 99.6 F 125 H 20 133/68 95 12/09/17 03:36 99.5 F 132 H 22 H 146/78 H 100 Weight Admit Weight 186 lb 12.8 oz Weight 186 lb 12.8 oz I&O: 12/08/17 12/09/17 12/10/17 06:59 06:59 06:59 Intake Total 865 1030 Balance 865 1030 Result Diagrams: 12/09/17 05:00 12/09/17 05:00 Radiology Reviewed by me: Yes Phys Exam - Physical Examination HEENT: PERRLA, moist MMs Neck: no nodes, no JVD Respiratory: no wheezing, no rales Cardiovascular: RRR, no significant murmur Gastrointestinal: soft, non-tender Musculoskeletal: no edema, pulses present Neurological: non-focal, normal sensation Psychiatric: normal affect Dx/Plan (1) Sepsis Code(s): A41.9 - SEPSIS, UNSPECIFIED ORGANISM Status: Acute Qualifiers: Sepsis type: sepsis due to unspecified organism Qualified Code(s): A41.9 - Sepsis, unspecified organism Comment: Sepsis from Port Cath infection from Staph senstive to Vancomycin, ID following. Will repeat blood Cultures today. (2) Chronic anemia Code(s): D64.9 - ANEMIA, UNSPECIFIED Status: Chronic Comment: Will clsoley Monitor likely from marrow Suppresion. (3) Severe dehydration Code(s): E86.0 - DEHYDRATION Status: Resolved Comment: resolved (4) Bilateral malignant neoplasm of central portion of breast in female Code(s): C50.111 - MALIGNANT NEOPLASM OF CENTRAL PORTION OF RIGHT FEMALE BREAST ; C50.112 - MALIGNANT NEOPLASM OF CENTRAL PORTION OF LEFT FEMALE BREAST Status : Acute Comment: Following Onoclogy . (5) Bone metastases Code(s): C79.51 - SECONDARY MALIGNANT NEOPLASM OF BONE Status: Acute (6) Uncontrolled hypertension Code(s): I10 - ESSENTIAL (PRIMARY) HYPERTENSION Status: Acute Comment: Will d/c IV fluids for Now, Will closley Monitor. - Plan cont current plan of care, fuentes catheter, continue antibiotics, PT/OT, respiratory therapy, DVT proph w/lovenox * . - Discharge Day Encounter end time: 10:45 Review of Systems - Review of Systems Eyes: negative: Pain, Vision Change, Conjunctivae Inflammation, Eyelid Inflammation, Redness, Other ENT: negative: Ear Pain, Ear Discharge, Nose Pain, Nose Discharge, Nose Congestion, Mouth Pain, Mouth Swelling, Throat Pain, Throat Swelling, Other Respiratory: negative: Cough, Dry, Shortness of Breath, Hemoptysis, SOB with Excertion, Pleuritic Pain, Sputum, Wheezing Cardiovascular: negative: chest pain, palpitations, orthopnea, paroxysmal nocturnal dyspnea, edema, light headedness, other Gastrointestinal: negative: Nausea, Vomiting, Abdominal Pain, Diarrhea, Constipation, Melena, Hematochezia, Other Genitourinary: negative: Dysuria, Frequency, Incontinence, Hematuria, Retention , Other - Medications/Allergies Allergies/Adverse Reactions: Allergies Allergy/AdvReac Type Severity Reaction Status Date / Time No Known Allergies Allergy Verified 11/24/17 12:30 Medications: Current Medications Acetaminophen (Tylenol) 650 mg PO Q4H PRN PRN Reason: Headache/Fever or Pain Last Admin: 12/09/17 11:17 Dose: 325 mg Hydrocodone Bitart/Acetaminophen ([place] 10/325) 1 tab PO Q6H PRN PRN Reason: Severe Pain (7-10) Last Admin: 12/09/17 11:10 Dose: 1 tab Alprazolam (Xanax) 0.5 mg PO HS PRN PRN Reason: Anxiety Last Admin: 12/09/17 00:01 Dose: 0.5 mg Docusate Sodium (Colace) 100 mg PO BID [facility] Last Admin: 12/09/17 11:10 Dose: 100 mg Famotidine (Pepcid) 20 mg PO BID [facility] Last Admin: 12/09/17 13:35 Dose: Not Given Guaifenesin/Dextromethorphan (Robitussin Dm) 15 ml PO Q4H PRN PRN Reason: Cough Vancomycin HCl 1.75 gm/ Sodium (Chloride) 500 mls @ 250 mls/hr IVPB 0600,1800 [facility] Cefepime HCl 2 gm/ Sodium (Chloride) 100 mls @ 200 mls/hr IVPB 0000,1200 [facility] Last Admin: 12/09/17 13:48 Dose: 100 mls Ibuprofen (Motrin) 400 mg PO Q8H PRN PRN Reason: fever Last Admin: 12/07/17 18:36 Dose: 400 mg Miscellaneous Medication (Pharmacy To Dose) 1 each IVPB PRN PRN PRN Reason: . Morphine Sulfate (Morphine) 2 mg SLOW IVP Q4H PRN PRN Reason: Chest Pain/BP Elevations Last Admin: 12/09/17 03:09 Dose: 2 mg Morphine Sulfate (Morphine) 2 mg SLOW IVP Q4H PRN PRN Reason: PAIN 7-10 Polyethylene Glycol (Miralax) 17 gm PO DAILY [facility] Last Admin: 12/09/17 11:11 Dose: 17 gm Senna (Senokot) 2 tab PO HSPRN PRN PRN Reason: Constipation Simethicone (Mylicon Chewable) 80 mg PO QIDPRN PRN PRN Reason: Gas Pain Last Admin: 12/08/17 11:50 Dose: 80 mg Sodium Chloride (Flush - Normal Saline) 10 ml IVF PRN PRN PRN Reason: Saline Flush Sodium Chloride (Flush - Normal Saline) 10 ml IVF BID [facility] Last Admin: 12/09/17 13:35 Dose: 10 ml Zolpidem Tartrate (Ambien) 10 mg PO HS PRN PRN Reason: Insomnia
[2017-12-09] MEDS: Ibuprofen 200 MG TAB PO PRN (16:56)
[2017-12-09] MEDS: Vancomycin HCl 1.75 GM in Sodium Chloride 0.9% 500 ML IVPB SCH (18:45)
--- NOTE | 2017-12-09 19:24 | PRG ---
DATE OF SERVICE: 12/09/2017 SUBJECTIVE: Feeling relieved after the port was removed, much less pain in the neck area. No respir atory symptoms or abdominal pain. OBJECTIVE: VITAL SIGNS: T-max 101 yesterday. She is currently 99.2. Other vital signs were not remarkable exc ept for moderate tachycardia. GENERAL: Awake and oriented. HEENT: Ocular movements conjugate. NECK: The left side of the neck is still a little bit tender much better than before. LUNGS: Clear. CARDIOVASCULAR: S1, S2, regular rate. ABDOMEN: Soft and not distended. LABORATORY DATA: White cell count 4.1, hemoglobin 10.1, platelets 345. Total neutrophil count aroun d 1200. Microbiology with Staphylococcus lugdunensis, which is oxacillin sensitive. ASSESSMENT AND DISCUSSION: Breast cancer with recurrence of bone, lungs and liver mets, on chemother apy, now with a MediPort infection secondary to Staphylococcus lugdunensis. Since the Staph lugdunen sis has more virulent properties such as Staph aureus, we would recommend continuation of IV therapy with cefazolin given via PICC for another 2 weeks approximately.
[2017-12-10] MEDS: Morphine 4 MG/ML VIAL SLOW IVP PRN (02:57)
[2017-12-10] MEDS: Acetaminophen 325 MG TAB PO PRN ×2 (04:46→15:09)
[2017-12-10] MEDS: Vancomycin HCl 1.75 GM in Sodium Chloride 0.9% 500 ML IVPB SCH ×2 (05:04→18:54)
[2017-12-10] MEDS: Ibuprofen 200 MG TAB PO PRN ×2 (05:10→16:43)
[2017-12-10] MEDS: Famotidine 20 MG TAB PO SCH ×2 (08:23→20:16)
[2017-12-10] MEDS: Docusate 100 MG CAP PO SCH ×2 (08:24→20:17)
[2017-12-10] MEDS: Polyethylene Glycol 3350 17 GM Packet PO SCH (08:24)
[2017-12-10] MEDS: Cefepime 2 GM in Sodium Chloride 0.9% 100 ML IVPB SCH (12:09)
[2017-12-10] MEDS ORDERED: Iopamidol 370 76% 100 ML VIAL ONE ×2 (13:24→13:25)
[2017-12-10 17:32] LABS: Vancomycin, Trough 9.8 ug/mL
--- NOTE | 2017-12-10 18:16 | CT ---
CT NECK WITH CONTRAST: 12/10/17 HISTORY: Left neck swelling. COMPARISON: None. FINDINGS: There appears to be explantation of the left port catheter. There is thrombosis of the left internal jugular vein with superficial soft tissue swelling. Internal carotid arteries are patent. There is edema within the anterior mediastinum. Right breast implant is present. IMPRESSION: Recently explanted port catheter with thrombosis of the left internal jugular vein. The vein appears to be patent to the level of C2 extending into the calvarium. POS: [facility]
--- NOTE | 2017-12-10 18:30 | CT ---
CT CHEST WITH CONTRAST: 12/10/17 HISTORY: Bacteremia, persistent fever, infected catheter. COMPARISON: CT chest four days prior. FINDINGS: There is explantation of the left port catheter. There is new extensive soft tissue swelling around t he right breast, left neck with left internal jugular venous thrombosis. Small pericardial effusion. There are bilateral new pleural effusions. Pulmonary nodules are similar. No pneumothorax. Hepatic hypodensity is similar. IMPRESSION: 1. Left internal jugular vein thrombosis with edema throughout the chest wall as well as the med iastinum and new moderate sized layering bilateral pleural effusions and small pericardial effusion. 2. Extensive blastic osseous metastasis. 3. Lytic process of the inferior margin of the right scapula. 4. Numerous lytic lucencies of the ribs. POS: [facility]
--- NOTE | 2017-12-10 20:12 | PDOC.PN ---
- Subjective Encounter Start Date: 12/10/17 Encounter Start Time: 13:00 Patient is seen today, admitted for Port cath Sepsis with staph on IV antibiotics.Pt still c/o Pain at the portcath site. - Objective Resuscitation Status: Resuscitation Status FULL:Full Resuscitation MAR Reviewed: Yes Vital Signs & Weight: Vital Signs (12 hours) Temp Pulse Resp BP BP Pulse Ox 12/10/17 19:15 98.1 F 118 H 16 170/96 H 96 12/10/17 17:11 100.4 F H 133 H 20 147/85 H 97 12/10/17 11:36 98.8 F 123 H 20 133/71 96 Weight Admit Weight 186 lb 12.8 oz Weight 186 lb 12.8 oz I&O: 12/09/17 12/10/17 12/11/17 06:59 06:59 06:59 Intake Total 1030 960 Balance 1030 960 Result Diagrams: 12/09/17 05:00 12/09/17 05:00 Radiology Reviewed by me: Yes Phys Exam - Physical Examination HEENT: PERRLA, moist MMs Neck: no nodes, no JVD Respiratory: no wheezing, no rales Cardiovascular: RRR, no significant murmur Gastrointestinal: soft, non-tender Musculoskeletal: no edema Dx/Plan (1) Sepsis Code(s): A41.9 - SEPSIS, UNSPECIFIED ORGANISM Status: Acute Qualifiers: Sepsis type: sepsis due to unspecified organism Qualified Code(s): A41.9 - Sepsis, unspecified organism Comment: Sepsis from Port Cath infection from Staph senstive to Vancomycin, ID following. Will repeat blood Cultures today. (2) Chronic anemia Code(s): D64.9 - ANEMIA, UNSPECIFIED Status: Chronic Comment: Will clsoley Monitor likely from marrow Suppresion. (3) Severe dehydration Code(s): E86.0 - DEHYDRATION Status: Resolved Comment: resolved (4) Bilateral malignant neoplasm of central portion of breast in female Code(s): C50.111 - MALIGNANT NEOPLASM OF CENTRAL PORTION OF RIGHT FEMALE BREAST ; C50.112 - MALIGNANT NEOPLASM OF CENTRAL PORTION OF LEFT FEMALE BREAST Status : Acute Comment: Following Onoclogy . (5) Bone metastases Code(s): C79.51 - SECONDARY MALIGNANT NEOPLASM OF BONE Status: Acute (6) Uncontrolled hypertension Code(s): I10 - ESSENTIAL (PRIMARY) HYPERTENSION Status: Acute Comment: Will d/c IV fluids for Now, Will belenley Monitor. - Plan cont current plan of care, fuentes catheter, continue antibiotics, PT/OT, respiratory therapy, DVT proph w/lovenox * . - Discharge Day Encounter end time: 13:35 Review of Systems - Review of Systems Eyes: negative: Pain, Vision Change, Conjunctivae Inflammation, Eyelid Inflammation, Redness, Other ENT: negative: Ear Pain, Ear Discharge, Nose Pain, Nose Discharge, Nose Congestion, Mouth Pain, Mouth Swelling, Throat Pain, Throat Swelling, Other Respiratory: negative: Cough, Dry, Shortness of Breath, Hemoptysis, SOB with Excertion, Pleuritic Pain, Sputum, Wheezing Cardiovascular: chest pain Gastrointestinal: negative: Nausea, Vomiting, Abdominal Pain, Diarrhea, Constipation, Melena, Hematochezia, Other Musculoskeletal: Neck Pain. negative: Shoulder Pain, Arm Pain, Back Pain, Hand Pain, Leg Pain, Foot Pain, Other - Medications/Allergies Allergies/Adverse Reactions: Allergies Allergy/AdvReac Type Severity Reaction Status Date / Time No Known Allergies Allergy Verified 11/24/17 12:30 Medications: Current Medications Acetaminophen (Tylenol) 650 mg PO Q4H PRN PRN Reason: Headache/Fever or Pain Last Admin: 12/10/17 15:09 Dose: 650 mg Hydrocodone Bitart/Acetaminophen ([place] 10/325) 1 tab PO Q6H PRN PRN Reason: Severe Pain (7-10) Last Admin: 12/09/17 16:55 Dose: 1 tab Alprazolam (Xanax) 0.5 mg PO HS PRN PRN Reason: Anxiety Last Admin: 12/09/17 00:01 Dose: 0.5 mg Docusate Sodium (Colace) 100 mg PO BID [facility] Last Admin: 12/10/17 08:24 Dose: 100 mg Famotidine (Pepcid) 20 mg PO BID [facility] Last Admin: 12/10/17 08:23 Dose: 20 mg Guaifenesin/Dextromethorphan (Robitussin Dm) 15 ml PO Q4H PRN PRN Reason: Cough Cefepime HCl 2 gm/ Sodium (Chloride) 100 mls @ 200 mls/hr IVPB 0000,1200 [facility] Last Admin: 12/10/17 12:09 Dose: 100 mls Vancomycin HCl 1.75 gm/ Sodium (Chloride) 500 mls @ 250 mls/hr IVPB 0200,1000, 1800 [facility] Last Admin: 12/10/17 18:54 Dose: 500 mls Ibuprofen (Motrin) 400 mg PO Q8H PRN PRN Reason: fever Last Admin: 12/10/17 16:43 Dose: 400 mg Miscellaneous Medication (Pharmacy To Dose) 1 each IVPB PRN PRN PRN Reason: . Morphine Sulfate (Morphine) 2 mg SLOW IVP Q4H PRN PRN Reason: Chest Pain/BP Elevations Last Admin: 12/10/17 02:57 Dose: 2 mg Morphine Sulfate (Morphine) 2 mg SLOW IVP Q4H PRN PRN Reason: PAIN 7-10 Polyethylene Glycol (Miralax) 17 gm PO DAILY [facility] Last Admin: 12/10/17 08:24 Dose: 17 gm Senna (Senokot) 2 tab PO HSPRN PRN PRN Reason: Constipation Simethicone (Mylicon Chewable) 80 mg PO QIDPRN PRN PRN Reason: Gas Pain Last Admin: 12/08/17 11:50 Dose: 80 mg Sodium Chloride (Flush - Normal Saline) 10 ml IVF PRN PRN PRN Reason: Saline Flush Sodium Chloride (Flush - Normal Saline) 10 ml IVF BID [facility] Last Admin: 12/10/17 15:09 Dose: 10 ml Zolpidem Tartrate (Ambien) 10 mg PO HS PRN PRN Reason: Insomnia
[2017-12-10] MEDS: ALPRAZolam 0.5 MG TAB PO PRN (22:08)
--- NOTE | 2017-12-10 22:20 | PRG ---
DATE OF SERVICE: 12/10/2017 SUBJECTIVE: Started having fever again, having worsening pain, left neck, some swallowing difficulty . No dyspnea or cough, no abdominal pain or diarrhea. No genitourinary symptoms. OBJECTIVE: VITAL SIGNS: T-max 101 to 102, BP 130/70, pulse 120, O2 sat %. GENERAL: Awake, alert, oriented, tender to left neck with more swelling than yesterday the left late ral neck area where the tunneled catheter was located. The left anterior chest area is not as tender as previously. LUNGS: Clear. S1, S2, regular rate. ABDOMEN: Soft and not distended. EXTREMITIES: Moves all extremities equally. LABORATORY DATA: White cell count is at 4.1 yesterday, not repeated today, hemoglobin 10, and platel ets 345. Sodium 138, creatinine 0.71. Two sets of blood culture repeat from yesterday thus far no g rowth. Catheter tip culture pending. ASSESSMENT AND DISCUSSION: Breast cancer recurrence with bone, lungs and liver metastases, on chemot herapy, now with MediPort infection secondary to Staphylococcus lugdunensis. The patient has persist ence of pain and worsening swelling of left neck. We will check a CT of the soft tissues of the neck with contrast to evaluate for thrombophlebitis abscess formation. Continue current regimen. Monito r blood cultures. She will need at least 2 weeks of IV antimicrobial therapy given through a PICC li ne, may need longer if the repeat blood cultures remain positive.
[2017-12-11] MEDS: Cefepime 2 GM in Sodium Chloride 0.9% 100 ML IVPB SCH ×2 (00:09→13:02)
[2017-12-11] MEDS: Vancomycin HCl 1.75 GM in Sodium Chloride 0.9% 500 ML IVPB SCH ×3 (02:25→17:51)
[2017-12-11] MEDS: HYDROcodone/Acetaminophen 10/325 mg Tablet PO PRN (04:42)
[2017-12-11] MEDS: Polyethylene Glycol 3350 17 GM Packet PO SCH (09:00)
[2017-12-11] MEDS: Docusate 100 MG CAP PO SCH ×2 (09:00→20:01)
[2017-12-11] MEDS: Famotidine 20 MG TAB PO SCH ×2 (09:07→20:03)
[2017-12-11] MEDS: Ibuprofen 200 MG TAB PO PRN (09:07)
[2017-12-11] MEDS: Morphine 4 MG/ML VIAL SLOW IVP PRN (09:08)
[2017-12-11 11:29] LABS: Anisocytosis SLIGHT = 6-15 cells (100X) (0-5/hpf); Band 5 % (5-11); Eosinophils 1 % (0-10); Hemoglobin 9.9 g/dL (12.0-16.0); Lymphocytes 37 % (21-51); MDiff Complete? YES; Mean Corpuscular HGB CONC 34.2 g/dL (32.0-36.0); Mean Corpuscular Volume 93.7 fl (81.0-99.0); Mean Platelet Volume 6.7 fL (7.4-10.4); Monocytes 10 % (0-10); Neutrophil 45 % (42-75); PLT Morphology Comment Appears Adequate; Platelet Count 363 thou/uL (130-400); Reactive Lymphocytes 1 % (0-10); White Blood Cell (WBC) Count 7.6 thou/uL (4.8-10.8)
[2017-12-11] MEDS ORDERED: Ketorolac Tromethamine 15 MG/ML VIAL IVP SCH (12:00)
[2017-12-11] MEDS: Ketorolac Tromethamine 30 MG/ML VIAL IVP SCH ×2 (12:15→17:50)
[2017-12-11] MEDS ORDERED: Enoxaparin Sodium 80 MG/0.8 ML SYRINGE SC SCH (14:00)
[2017-12-11] MEDS ORDERED: Activase 2 MG VIAL CATH SCH (14:54)
[2017-12-11] MEDS ORDERED: Sterile Water 10 ML VIAL IVP SCH (14:54)
[2017-12-11 16:51] LABS: Vancomycin, Trough 27.2 ug/mL
[2017-12-11] MEDS: Enoxaparin Sodium 80 MG/0.8 ML SYRINGE SC SCH (20:02)
--- NOTE | 2017-12-11 20:08 | PRG ---
DATE OF SERVICE: 12/11/2017 SUBJECTIVE: Feeling a little better today, still with pain and swelling left neck, a little bit of f ever, no respiratory symptoms or abdominal pain, no diarrhea. OBJECTIVE: VITAL SIGNS: T-max 100.4 at 5 p.m. yesterday. She seems to have defervesced since. Other vital sig ns are normal. GENERAL: Awake, alert, oriented. Left neck less swelling, but still some swelling, moderate tendern ess lateral aspect left side. The previous port site appears okay. LUNGS: Clear. HEART: S1, S2, regular rate. ABDOMEN: Soft, not distended. LABORATORY: White cell count 7.6, hemoglobin 9.9, platelets 363 with 45% neutrophils, 5% bands. Sod ium 138, creatinine 0.71. Catheter tip cultures with Staphylococcus species. C. difficile test and stool has not done because the patient had formed stool. CT of neck demonstrated thrombosis of the l eft internal jugular vein. ASSESSMENT AND DISCUSSION: Breast cancer recurrence with bone, lungs and liver mets on chemotherapy. MediPort infection having been removed. The bacteremia is due to Staphylococcus lugdunensis. Persi stence of pain and worsening swelling in neck probably from deep vein thrombosis, internal jugular ve in. Continue antimicrobial therapy with Rocephin. We would treat her probably for 4 weeks of Staphy lococcus lugdunensis tends to have a similar pathogenicity as Staph aureus and she has this area of c lot which might be colonized by the bacteria, so I do not think she meets criteria for a short course of therapy and date of therapy would be 01/07. Regarding the matter of anticoagulation, she has bee n started on enoxaparin.
[2017-12-12] MEDS: Cefepime 2 GM in Sodium Chloride 0.9% 100 ML IVPB SCH ×2 (00:05→11:40)
[2017-12-12] MEDS: Ketorolac Tromethamine 30 MG/ML VIAL IVP SCH ×5 (00:07→23:05)
[2017-12-12] MEDS: Vancomycin HCl 1.25 GM in Sodium Chloride 0.9% 250 ML 250 ML IVPB SCH ×2 (02:07→09:51)
[2017-12-12] MEDS: Polyethylene Glycol 3350 17 GM Packet PO SCH (09:51)
[2017-12-12] MEDS: Enoxaparin Sodium 80 MG/0.8 ML SYRINGE SC SCH (09:51)
[2017-12-12] MEDS: Famotidine 20 MG TAB PO SCH ×2 (09:51→20:44)
[2017-12-12] MEDS: Docusate 100 MG CAP PO SCH ×2 (09:52→20:44)
--- NOTE | 2017-12-12 13:45 | PDOC.PN ---
- Subjective Encounter Start Date: 12/11/17 Encounter Start Time: 15:00 patient is seen today, alert and oriented. Discussed with Family at bedside, She feels much bteer, after Anticoagulants started for her DVT. - Objective Resuscitation Status: Resuscitation Status FULL:Full Resuscitation MAR Reviewed: Yes Vital Signs & Weight: Vital Signs (12 hours) Temp Pulse Resp BP Pulse Ox 12/12/17 11:45 98.4 F 12/12/17 08:00 98.9 F 118 H 16 95 12/12/17 07:28 98.9 F 118 H 16 138/70 95 Weight Admit Weight 186 lb 12.8 oz Weight 186 lb 12.8 oz I&O: 12/11/17 12/12/17 12/13/17 06:59 06:59 06:59 Intake Total 1909 1659 Balance 1909 1659 Result Diagrams: 12/11/17 10:30 12/09/17 05:00 Radiology Reviewed by me: Yes EKG Reviewed by me: Yes Phys Exam - Physical Examination HEENT: PERRLA, moist MMs Neck: no nodes, no JVD Respiratory: no wheezing, no rales, clear to auscultation bilateral Cardiovascular: RRR, no significant murmur Gastrointestinal: soft, non-tender, no distention Musculoskeletal: no edema, pulses present Neurological: non-focal, normal sensation Dx/Plan (1) Sepsis Code(s): A41.9 - SEPSIS, UNSPECIFIED ORGANISM Status: Acute Qualifiers: Sepsis type: sepsis due to unspecified organism Qualified Code(s): A41.9 - Sepsis, unspecified organism Comment: Sepsis from Port Cath infection from Staph senstive to Vancomycin, ID following. repeat blood Cultures showed no growth. (2) Chronic anemia Code(s): D64.9 - ANEMIA, UNSPECIFIED Status: Chronic Comment: Will clsoley Monitor likely from marrow Suppresion. (3) Severe dehydration Code(s): E86.0 - DEHYDRATION Status: Resolved Comment: resolved (4) Bilateral malignant neoplasm of central portion of breast in female Code(s): C50.111 - MALIGNANT NEOPLASM OF CENTRAL PORTION OF RIGHT FEMALE BREAST ; C50.112 - MALIGNANT NEOPLASM OF CENTRAL PORTION OF LEFT FEMALE BREAST Status : Acute Comment: Following Onoclogy . (5) Bone metastases Code(s): C79.51 - SECONDARY MALIGNANT NEOPLASM OF BONE Status: Acute (6) Uncontrolled hypertension Code(s): I10 - ESSENTIAL (PRIMARY) HYPERTENSION Status: Acute Comment: Will d/c IV fluids for Now, Will anderson Monitor. (7) DVT of axillary vein, acute left Code(s): I82.A12 - ACUTE EMBOLISM AND THROMBOSIS OF LEFT AXILLARY VEIN Status : Acute Comment: Left internal jug DVT noted on CT, will start patient on Lovenox 1mg Sc BID, will transition to Eliquis/ xaralto/coumedin at dischagre. - Plan cont current plan of care, plan discussed w/ family, continue antibiotics, PT/OT , renal social worker, incentive spirometry, out of bed/ambulate, DVT proph w/ lovenox * . Review of Systems - Review of Systems Respiratory: negative: Cough, Dry, Shortness of Breath, Hemoptysis, SOB with Excertion, Pleuritic Pain, Sputum, Wheezing Cardiovascular: negative: chest pain, palpitations, orthopnea, paroxysmal nocturnal dyspnea, edema, light headedness, other Gastrointestinal: negative: Nausea, Vomiting, Abdominal Pain, Diarrhea, Constipation, Melena, Hematochezia, Other Musculoskeletal: negative: Neck Pain, Shoulder Pain, Arm Pain, Back Pain, Hand Pain, Leg Pain, Foot Pain, Other Skin: negative: Rash, Lesions, Calvin, Bruising, Other - Medications/Allergies Allergies/Adverse Reactions: Allergies Allergy/AdvReac Type Severity Reaction Status Date / Time No Known Allergies Allergy Verified 11/24/17 12:30 Medications: Current Medications Acetaminophen (Tylenol) 650 mg PO Q4H PRN PRN Reason: Headache/Fever or Pain Last Admin: 12/10/17 15:09 Dose: 650 mg Hydrocodone Bitart/Acetaminophen ([place] 10/325) 1 tab PO Q6H PRN PRN Reason: Severe Pain (7-10) Last Admin: 12/11/17 04:42 Dose: 1 tab Alprazolam (Xanax) 0.5 mg PO HS PRN PRN Reason: Anxiety Last Admin: 12/10/17 22:08 Dose: 0.5 mg Docusate Sodium (Colace) 100 mg PO BID [facility] Last Admin: 12/12/17 09:52 Dose: Not Given Enoxaparin Sodium (Lovenox) 80 mg SC 0900,2100 [facility] Last Admin: 12/12/17 09:51 Dose: 80 mg Famotidine (Pepcid) 20 mg PO BID [facility] Last Admin: 12/12/17 09:51 Dose: 20 mg Guaifenesin/Dextromethorphan (Robitussin Dm) 15 ml PO Q4H PRN PRN Reason: Cough Cefepime HCl 2 gm/ Sodium (Chloride) 100 mls @ 200 mls/hr IVPB 0000,1200 [facility] Last Admin: 12/12/17 11:40 Dose: 100 mls Vancomycin HCl 1.25 gm/ Sodium (Chloride) 250 mls @ 166.667 mls/hr IVPB 0200, 1000,1800 [facility] Last Admin: 12/12/17 09:51 Dose: 250 mls Ibuprofen (Motrin) 400 mg PO Q8H PRN PRN Reason: fever Last Admin: 12/11/17 09:07 Dose: 400 mg Ketorolac Tromethamine (Toradol) 15 mg IVP Q6HR [facility] Stop: 12/16/17 12:01 Last Admin: 12/12/17 11:40 Dose: 15 mg Miscellaneous Medication (Pharmacy To Dose) 1 each IVPB PRN PRN PRN Reason: . Morphine Sulfate (Morphine) 2 mg SLOW IVP Q4H PRN PRN Reason: Chest Pain/BP Elevations Last Admin: 12/11/17 09:08 Dose: 2 mg Morphine Sulfate (Morphine) 2 mg SLOW IVP Q4H PRN PRN Reason: PAIN 7-10 Polyethylene Glycol (Miralax) 17 gm PO DAILY [facility] Last Admin: 12/12/17 09:51 Dose: Not Given Senna (Senokot) 2 tab PO HSPRN PRN PRN Reason: Constipation Simethicone (Mylicon Chewable) 80 mg PO QIDPRN PRN PRN Reason: Gas Pain Last Admin: 12/08/17 11:50 Dose: 80 mg Sodium Chloride (Flush - Normal Saline) 10 ml IVF PRN PRN PRN Reason: Saline Flush Sodium Chloride (Flush - Normal Saline) 10 ml IVF BID [facility] Last Admin: 12/12/17 09:51 Dose: 10 ml Zolpidem Tartrate (Ambien) 10 mg PO HS PRN PRN Reason: Insomnia
[2017-12-12] MEDS: Morphine 4 MG/ML VIAL SLOW IVP PRN (14:55)
[2017-12-12] MEDS: Acetaminophen 325 MG TAB PO PRN (15:00)
[2017-12-12] MEDS: cefTRIAXone\\ROCEPHIN 2 GM in Sodium Chloride 0.9% 100 ML IVPB SCH (17:05)
[2017-12-12] MEDS: Rivaroxaban 15 MG TAB PO SCH (20:44)
[2017-12-12] MEDS ORDERED: Rivaroxaban 15 MG TAB PO SCH (21:00)
[2017-12-13] MEDS: Ketorolac Tromethamine 30 MG/ML VIAL IVP SCH ×4 (05:59→23:19)
[2017-12-13 06:39] LABS: Calc. Creatinine Clearance 160 mL/min (70-130); Estimated GFR-MDRD Greater than 90
[2017-12-13 07:57] LABS: Hemoglobin 9.1 g/dL (12.0-16.0); Platelet Count 372 thou/uL (130-400)
[2017-12-13] MEDS ORDERED: Rivaroxaban 15 MG TAB PO SCH (09:00)
[2017-12-13] MEDS: Polyethylene Glycol 3350 17 GM Packet PO SCH (10:29)
[2017-12-13] MEDS: Famotidine 20 MG TAB PO SCH ×2 (10:29→20:39)
[2017-12-13] MEDS: Rivaroxaban 15 MG TAB PO SCH ×2 (10:29→20:39)
[2017-12-13] MEDS: Docusate 100 MG CAP PO SCH ×2 (10:29→20:39)
--- NOTE | 2017-12-13 10:39 | PDOC.PN ---
- Subjective Encounter Start Date: 12/12/17 Encounter Start Time: 17:00 Patient is seen today, alert and oriented,. pain in the neck area is improving. Duiscussed with nurse, ROSS has been informed and will plan for outpatient Infusion with Rocephin after Administration approval. - Objective Resuscitation Status: Resuscitation Status FULL:Full Resuscitation MAR Reviewed: Yes Vital Signs & Weight: Vital Signs (12 hours) Temp Pulse Resp BP Pulse Ox 12/13/17 08:00 98.5 F 112 H 18 99 12/13/17 07:32 98.5 F 112 H 18 147/77 H 99 Weight Admit Weight 186 lb 12.8 oz Weight 186 lb 12.8 oz I&O: 12/12/17 12/13/17 12/14/17 06:59 06:59 06:59 Intake Total 1660 1720 Balance 1660 1720 Result Diagrams: 12/13/17 06:15 12/13/17 06:15 Radiology Reviewed by me: Yes EKG Reviewed by me: Yes Phys Exam - Physical Examination HEENT: PERRLA, moist MMs Neck: no nodes, no JVD Respiratory: no wheezing, no rales Cardiovascular: RRR, no significant murmur Gastrointestinal: soft, non-tender Musculoskeletal: no edema, pulses present Dx/Plan (1) Sepsis Code(s): A41.9 - SEPSIS, UNSPECIFIED ORGANISM Status: Acute Qualifiers: Sepsis type: sepsis due to unspecified organism Qualified Code(s): A41.9 - Sepsis, unspecified organism Comment: Sepsis from Port Cath infection from Staph senstive to Rocephin. Plan to continue till 01/07 per ID, ROSS planning for outpqatient Infusion daily with admisntrative approval, likely can happen on friday. (2) Chronic anemia Code(s): D64.9 - ANEMIA, UNSPECIFIED Status: Chronic Comment: Will clsoley Monitor likely from marrow Suppresion. (3) Severe dehydration Code(s): E86.0 - DEHYDRATION Status: Resolved Comment: resolved (4) Bilateral malignant neoplasm of central portion of breast in female Code(s): C50.111 - MALIGNANT NEOPLASM OF CENTRAL PORTION OF RIGHT FEMALE BREAST ; C50.112 - MALIGNANT NEOPLASM OF CENTRAL PORTION OF LEFT FEMALE BREAST Status : Acute Comment: Following Onoclogy . (5) Bone metastases Code(s): C79.51 - SECONDARY MALIGNANT NEOPLASM OF BONE Status: Acute (6) Uncontrolled hypertension Code(s): I10 - ESSENTIAL (PRIMARY) HYPERTENSION Status: Resolved Comment: Will d/c IV fluids for Now, Will belenley Monitor. (7) DVT of axillary vein, acute left Code(s): I82.A12 - ACUTE EMBOLISM AND THROMBOSIS OF LEFT AXILLARY VEIN Status : Acute Comment: Left internal jug DVT noted on CT, will start patient on Lovenox 1mg Sc BID, will transition to xaralto at [facility] emergency department. 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 Review of Systems - Review of Systems Eyes: negative: Pain, Vision Change, Conjunctivae Inflammation, Eyelid Inflammation, Redness, Other ENT: negative: Ear Pain, Ear Discharge, Nose Pain, Nose Discharge, Nose Congestion, Mouth Pain, Mouth Swelling, Throat Pain, Throat Swelling, Other Respiratory: negative: Cough, Dry, Shortness of Breath, Hemoptysis, SOB with Excertion, Pleuritic Pain, Sputum, Wheezing Cardiovascular: negative: chest pain, palpitations, orthopnea, paroxysmal nocturnal dyspnea, edema, light headedness, other Musculoskeletal: negative: Neck Pain, Shoulder Pain, Arm Pain, Back Pain, Hand Pain, Leg Pain, Foot Pain, Other - Medications/Allergies Allergies/Adverse Reactions: Allergies Allergy/AdvReac Type Severity Reaction Status Date / Time No Known Allergies Allergy Verified 11/24/17 12:30 Medications: Current Medications Acetaminophen (Tylenol) 650 mg PO Q4H PRN PRN Reason: Headache/Fever or Pain Last Admin: 12/12/17 15:00 Dose: 650 mg Hydrocodone Bitart/Acetaminophen ([place] 10/325) 1 tab PO Q6H PRN PRN Reason: Severe Pain (7-10) Last Admin: 12/11/17 04:42 Dose: 1 tab Alprazolam (Xanax) 0.5 mg PO HS PRN PRN Reason: Anxiety Last Admin: 12/10/17 22:08 Dose: 0.5 mg Docusate Sodium (Colace) 100 mg PO BID [facility] Last Admin: 12/13/17 10:29 Dose: Not Given Famotidine (Pepcid) 20 mg PO BID [facility] Last Admin: 12/13/17 10:29 Dose: 20 mg Guaifenesin/Dextromethorphan (Robitussin Dm) 15 ml PO Q4H PRN PRN Reason: Cough Ceftriaxone Sodium 2 gm/ (Sodium Chloride) 100 mls @ 200 mls/hr IVPB 1600 [facility] Last Admin: 12/12/17 17:05 Dose: 100 mls Ibuprofen (Motrin) 400 mg PO Q8H PRN PRN Reason: fever Last Admin: 12/11/17 09:07 Dose: 400 mg Ketorolac Tromethamine (Toradol) 15 mg IVP Q6HR [facility] Stop: 12/16/17 12:01 Last Admin: 12/13/17 05:59 Dose: 15 mg Morphine Sulfate (Morphine) 2 mg SLOW IVP Q4H PRN PRN Reason: Chest Pain/BP Elevations Last Admin: 12/12/17 14:55 Dose: 2 mg Morphine Sulfate (Morphine) 2 mg SLOW IVP Q4H PRN PRN Reason: PAIN 7-10 Polyethylene Glycol (Miralax) 17 gm PO DAILY [facility] Last Admin: 12/13/17 10:29 Dose: Not Given Rivaroxaban (Xarelto) 15 mg PO BID [facility] Last Admin: 12/13/17 10:29 Dose: 15 mg Senna (Senokot) 2 tab PO HSPRN PRN PRN Reason: Constipation Simethicone (Mylicon Chewable) 80 mg PO QIDPRN PRN PRN Reason: Gas Pain Last Admin: 12/08/17 11:50 Dose: 80 mg Sodium Chloride (Flush - Normal Saline) 10 ml IVF PRN PRN PRN Reason: Saline Flush Sodium Chloride (Flush - Normal Saline) 10 ml IVF BID [facility] Last Admin: 12/13/17 10:35 Dose: 10 ml Zolpidem Tartrate (Ambien) 10 mg PO HS PRN PRN Reason: Insomnia
--- NOTE | 2017-12-13 11:07 | PRG ---
DATE OF SERVICE: 12/12/2017 SUBJECTIVE: Feeling better. The neck is much less tender. No fever, no chest pain, no abdominal pa in. Appears in no distress. PHYSICAL EXAMINATION: VITAL SIGNS: T-max 99.1. NECK: Left neck area is much softer, less swollen. Better range of motion. LUNGS: Clear. Port site appears uninflamed. HEART: S1 and S2, regular rate. ABDOMEN: Soft. No joint inflammatory process. LABORATORY DATA: White cell count is up to 7.6, hemoglobin 9.9, platelets 363. Creatinine 0.71. Re peat blood cultures thus far no growth at 48 hours. ASSESSMENT AND DISCUSSION: Breast cancer recurrence with bone, lungs and liver mets on chemotherapy, MediPort infection, status post removal of the device secondary to Staphylococcus lugdunensis. The patient developed thrombophlebitis of the internal jugular and is currently on Lovenox being transiti oned to I believe Xarelto or Eliquis. The patient to continue on Rocephin 2 grams daily for a total of 4 weeks from discharge planning.
--- NOTE | 2017-12-13 15:06 | EKG ---
Test Reason : Blood Pressure : / mmHG Vent. Rate : 132 BPM Atrial Rate : 132 BPM P-R Int : 138 ms QRS Dur : 058 ms QT Int : 282 ms P-R-T Axes : 049 -03 039 degrees QTc Int : 417 ms Sinus tachycardia Otherwise normal ECG Confirmed by MAO CUEVA, HUMBERTO ([id number]), editor magazine PAO HOOK ([id number]) on 12/13/2017 3:06:09 PM Referred By: Confirmed By:HUMBERTO CAVANAUGH MD
[2017-12-13] MEDS: cefTRIAXone\\ROCEPHIN 2 GM in Sodium Chloride 0.9% 100 ML IVPB SCH (16:18)
--- NOTE | 2017-12-13 17:04 | PDOC.PN ---
- Subjective Encounter Start Date: 12/13/17 Encounter Start Time: 16:00 Patient is seen today, alert and oriented. Continued on IV rocephin, Pt has Chronic tachycardia baseline. - Objective Resuscitation Status: Resuscitation Status FULL:Full Resuscitation MAR Reviewed: Yes Vital Signs & Weight: Vital Signs (12 hours) Temp Pulse Resp BP Pulse Ox 12/13/17 16:14 98.7 F 12/13/17 12:14 98.8 F 12/13/17 08:00 98.5 F 112 H 18 99 12/13/17 07:32 98.5 F 112 H 18 147/77 H 99 Weight Admit Weight 186 lb 12.8 oz Weight 186 lb 12.8 oz I&O: 12/12/17 12/13/17 12/14/17 06:59 06:59 06:59 Intake Total 1660 1720 Balance 1660 1720 Result Diagrams: 12/13/17 06:15 12/13/17 06:15 Radiology Reviewed by me: Yes Phys Exam - Physical Examination HEENT: PERRLA, moist MMs Neck: no nodes, no JVD Respiratory: no wheezing, no rales Cardiovascular: RRR, no rub Tachycasrdia Resting Gastrointestinal: soft, non-tender Musculoskeletal: no edema, pulses present Neurological: non-focal, normal sensation Lymphatic: no nodes Dx/Plan (1) Sepsis Code(s): A41.9 - SEPSIS, UNSPECIFIED ORGANISM Status: Acute Qualifiers: Sepsis type: sepsis due to unspecified organism Qualified Code(s): A41.9 - Sepsis, unspecified organism Comment: Sepsis from Port Cath infection from Staph senstive to Rocephin. Plan to continue till 01/07 per ID, CM planning for outpqatient Infusion daily with admisntrative approval, likely can happen on friday. (2) Chronic anemia Code(s): D64.9 - ANEMIA, UNSPECIFIED Status: Chronic Comment: Will clsoley Monitor likely from marrow Suppresion. (3) Severe dehydration Code(s): E86.0 - DEHYDRATION Status: Resolved Comment: resolved (4) Bilateral malignant neoplasm of central portion of breast in female Code(s): C50.111 - MALIGNANT NEOPLASM OF CENTRAL PORTION OF RIGHT FEMALE BREAST ; C50.112 - MALIGNANT NEOPLASM OF CENTRAL PORTION OF LEFT FEMALE BREAST Status : Acute Comment: Following Onoclogy . (5) Bone metastases Code(s): C79.51 - SECONDARY MALIGNANT NEOPLASM OF BONE Status: Acute (6) Uncontrolled hypertension Code(s): I10 - ESSENTIAL (PRIMARY) HYPERTENSION Status: Resolved Comment: Will d/c IV fluids for Now, Will closley Monitor. (7) DVT of axillary vein, acute left Code(s): I82.A12 - ACUTE EMBOLISM AND THROMBOSIS OF LEFT AXILLARY VEIN Status : Acute Comment: Left internal jug DVT noted on CT, will start patient on Lovenox 1mg Sc BID, will transition to xaralto at [facility]. (8) Tachycardia with heart rate 100-120 beats per minute Code(s): R00.0 - TACHYCARDIA, UNSPECIFIED Status: Acute Comment: Sinus Tachycardia resting HR, she is been having chronically eelvated HR, had Echo in past and was normal, No h/o thyroide problems. Will do TSh/ Free T4, Will start on Coreg 3.125mg BID. 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 Review of Systems - Review of Systems Eyes: negative: Pain, Vision Change, Conjunctivae Inflammation, Eyelid Inflammation, Redness, Other ENT: negative: Ear Pain, Ear Discharge, Nose Pain, Nose Discharge, Nose Congestion, Mouth Pain, Mouth Swelling, Throat Pain, Throat Swelling, Other Cardiovascular: negative: chest pain, palpitations, orthopnea, paroxysmal nocturnal dyspnea, edema, light headedness, other Genitourinary: negative: Dysuria, Frequency, Incontinence, Hematuria, Retention , Other Musculoskeletal: negative: Neck Pain, Shoulder Pain, Arm Pain, Back Pain, Hand Pain, Leg Pain, Foot Pain, Other Skin: negative: Rash, Lesions, Calvin, Bruising, Other - Medications/Allergies Allergies/Adverse Reactions: Allergies Allergy/AdvReac Type Severity Reaction Status Date / Time No Known Allergies Allergy Verified 11/24/17 12:30 Medications: Current Medications Acetaminophen (Tylenol) 650 mg PO Q4H PRN PRN Reason: Headache/Fever or Pain Last Admin: 12/12/17 15:00 Dose: 650 mg Hydrocodone Bitart/Acetaminophen ([place] 10/325) 1 tab PO Q6H PRN PRN Reason: Severe Pain (7-10) Last Admin: 12/11/17 04:42 Dose: 1 tab Alprazolam (Xanax) 0.5 mg PO HS PRN PRN Reason: Anxiety Last Admin: 12/10/17 22:08 Dose: 0.5 mg Carvedilol (Coreg) 3.125 mg PO BID-[facility] Docusate Sodium (Colace) 100 mg PO BID [facility] Last Admin: 12/13/17 10:29 Dose: Not Given Famotidine (Pepcid) 20 mg PO BID [facility] Last Admin: 12/13/17 10:29 Dose: 20 mg Guaifenesin/Dextromethorphan (Robitussin Dm) 15 ml PO Q4H PRN PRN Reason: Cough Ceftriaxone Sodium 2 gm/ (Sodium Chloride) 100 mls @ 200 mls/hr IVPB 1600 [facility] Last Admin: 12/13/17 16:18 Dose: 100 mls Ibuprofen (Motrin) 400 mg PO Q8H PRN PRN Reason: fever Last Admin: 12/11/17 09:07 Dose: 400 mg Ketorolac Tromethamine (Toradol) 15 mg IVP Q6HR [facility] Stop: 12/16/17 12:01 Last Admin: 12/13/17 12:51 Dose: 15 mg Morphine Sulfate (Morphine) 2 mg SLOW IVP Q4H PRN PRN Reason: Chest Pain/BP Elevations Last Admin: 12/12/17 14:55 Dose: 2 mg Morphine Sulfate (Morphine) 2 mg SLOW IVP Q4H PRN PRN Reason: PAIN 7-10 Polyethylene Glycol (Miralax) 17 gm PO DAILY [facility] Last Admin: 12/13/17 10:29 Dose: Not Given Rivaroxaban (Xarelto) 15 mg PO BID [facility] Last Admin: 12/13/17 10:29 Dose: 15 mg Senna (Senokot) 2 tab PO HSPRN PRN PRN Reason: Constipation Simethicone (Mylicon Chewable) 80 mg PO QIDPRN PRN PRN Reason: Gas Pain Last Admin: 12/08/17 11:50 Dose: 80 mg Sodium Chloride (Flush - Normal Saline) 10 ml IVF PRN PRN PRN Reason: Saline Flush Sodium Chloride (Flush - Normal Saline) 10 ml IVF BID [facility] Last Admin: 12/13/17 10:35 Dose: 10 ml Zolpidem Tartrate (Ambien) 10 mg PO HS PRN PRN Reason: Insomnia
[2017-12-13] MEDS: ALPRAZolam 0.5 MG TAB PO PRN (23:19)
[2017-12-14] MEDS: Ketorolac Tromethamine 30 MG/ML VIAL IVP SCH ×4 (05:49→23:11)
[2017-12-14 07:03] LABS: Hemoglobin 9.4 g/dL (12.0-16.0); Mean Corpuscular HGB CONC 33.4 g/dL (32.0-36.0); Mean Corpuscular Hemoglobin 31.4 pg (27.0-31.0); Mean Corpuscular Volume 93.9 fl (81.0-99.0); Mean Platelet Volume 6.7 fL (7.4-10.4); Platelet Count 375 thou/uL (130-400); RBC Distribution Width 16.4 % (11.5-14.5); White Blood Cell (WBC) Count 10.2 thou/uL (4.8-10.8)
[2017-12-14 07:26] LABS: Thyroid Stimulating Hormone 1.5216 uIU/mL (0.35-4.94)
[2017-12-14 07:27] LABS: Band 10 % (5-11); Hypochromia SLIGHT = 6-15 cells (100X) (0-5/hpf); Lymphocytes 10 % (21-51); MDiff Complete? YES; Metamyelocyte 4 % (0-0); Myelocyte 3 % (0-0); Neutrophil 70 % (42-75); Reactive Lymphocytes 2 % (0-10); Reflex for Review?? NO
[2017-12-14 08:17] LABS: Anion Gap 10 mmol/L (10-20); BUN (Urea Nitrogen) 8 mg/dL (7.0-18.7); Calc. Creatinine Clearance 163 mL/min (70-130); Calcium 9.3 mg/dL (7.8-10.44); Carbon Dioxide 27 mmol/L (22-29); Chloride 105 mmol/L (98-107); Estimated GFR-MDRD Greater than 90; Glucose 98 mg/dL (70-105); Potassium 3.9 mmol/L (3.5-5.1); Sodium 138 mmol/L (136-145)
[2017-12-14] MEDS: Carvedilol 3.125 MG TAB PO SCH ×2 (09:01→16:44)
[2017-12-14] MEDS: Rivaroxaban 15 MG TAB PO SCH ×2 (09:02→20:48)
[2017-12-14] MEDS: Docusate 100 MG CAP PO SCH ×2 (09:02→20:49)
[2017-12-14] MEDS: Famotidine 20 MG TAB PO SCH ×2 (09:02→20:45)
[2017-12-14] MEDS: Polyethylene Glycol 3350 17 GM Packet PO SCH (09:02)
[2017-12-14] MEDS: cefTRIAXone\\ROCEPHIN 2 GM in Sodium Chloride 0.9% 100 ML IVPB SCH (16:45)
[2017-12-15] MEDS: Ketorolac Tromethamine 30 MG/ML VIAL IVP SCH (05:37)
[2017-12-15 06:01] LABS: Platelet Count 379 thou/uL (130-400)
[2017-12-15 06:11] LABS: Calc. Creatinine Clearance 153 mL/min (70-130); Estimated GFR-MDRD Greater than 90
[2017-12-15 08:20] VITALS: BP 140/96; TEMP 97.6
[2017-12-15] MEDS: Carvedilol 3.125 MG TAB PO SCH ×2 (09:36→16:18)
[2017-12-15] MEDS: Docusate 100 MG CAP PO SCH (09:36)
[2017-12-15] MEDS: Polyethylene Glycol 3350 17 GM Packet PO SCH (09:36)
[2017-12-15] MEDS: Famotidine 20 MG TAB PO SCH (09:37)
[2017-12-15] MEDS: Rivaroxaban 15 MG TAB PO SCH (09:38)
[2017-12-15] MEDS: cefTRIAXone\\ROCEPHIN 2 GM in Sodium Chloride 0.9% 100 ML IVPB SCH (14:16)
[2017-12-15] MEDS: Acetaminophen 325 MG TAB PO PRN (14:19)
--- NOTE | 2017-12-16 10:26 | PDOC.PN ---
- Subjective Encounter Start Date: 12/14/17 Encounter Start Time: 17:00 Patient was seen today, Alert and oriented. She is in no distress and was walking to cafeteria later in the day. pt is waiting on Discharge tomorrow. - Objective Resuscitation Status: Resuscitation Status FULL:Full Resuscitation MAR Reviewed: Yes Vital Signs & Weight: Weight Admit Weight 186 lb 12.8 oz Weight 186 lb 12.8 oz I&O: 12/15/17 12/16/17 12/17/17 06:59 06:59 06:59 Intake Total 2140 850 Balance 2140 850 Result Diagrams: 12/15/17 05:46 12/15/17 05:46 Phys Exam - Physical Examination HEENT: PERRLA, moist MMs Respiratory: no wheezing, no rales Cardiovascular: RRR, no significant murmur Gastrointestinal: soft, non-tender Dx/Plan (1) Sepsis Code(s): A41.9 - SEPSIS, UNSPECIFIED ORGANISM Status: Acute Qualifiers: Sepsis type: sepsis due to unspecified organism Qualified Code(s): A41.9 - Sepsis, unspecified organism Comment: Sepsis from Port Cath infection from Staph senstive to Rocephin. Plan to continue till 01/07 per ID, CM planning for outpqatient Infusion daily with admisntrative approval, likely can happen on friday. (2) Chronic anemia Code(s): D64.9 - ANEMIA, UNSPECIFIED Status: Chronic Comment: Will clsoley Monitor likely from marrow Suppresion. (3) Severe dehydration Code(s): E86.0 - DEHYDRATION Status: Resolved Comment: resolved (4) Bilateral malignant neoplasm of central portion of breast in female Code(s): C50.111 - MALIGNANT NEOPLASM OF CENTRAL PORTION OF RIGHT FEMALE BREAST ; C50.112 - MALIGNANT NEOPLASM OF CENTRAL PORTION OF LEFT FEMALE BREAST Status : Acute Comment: Following Onoclogy . (5) Bone metastases Code(s): C79.51 - SECONDARY MALIGNANT NEOPLASM OF BONE Status: Acute (6) Uncontrolled hypertension Code(s): I10 - ESSENTIAL (PRIMARY) HYPERTENSION Status: Resolved Comment: Will d/c IV fluids for Now, Will closley Monitor. (7) DVT of axillary vein, acute left Code(s): I82.A12 - ACUTE EMBOLISM AND THROMBOSIS OF LEFT AXILLARY VEIN Status : Acute Comment: Left internal jug DVT noted on CT, will start patient on Lovenox 1mg Sc BID, will transition to xaralto at [facility]. (8) Tachycardia with heart rate 100-120 beats per minute Code(s): R00.0 - TACHYCARDIA, UNSPECIFIED Status: Acute Comment: Sinus Tachycardia resting HR, she is been having chronically eelvated HR, had Echo in past and was normal, No h/o thyroide problems. Will do TSh/ Free T4, Will start on Coreg 3.125mg BID. 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 Review of Systems - Review of Systems Eyes: negative: Pain, Vision Change, Conjunctivae Inflammation, Eyelid Inflammation, Redness, Other ENT: negative: Ear Pain, Ear Discharge, Nose Pain, Nose Discharge, Nose Congestion, Mouth Pain, Mouth Swelling, Throat Pain, Throat Swelling, Other Respiratory: negative: Cough, Dry, Shortness of Breath, Hemoptysis, SOB with Excertion, Pleuritic Pain, Sputum, Wheezing Cardiovascular: negative: chest pain, palpitations, orthopnea, paroxysmal nocturnal dyspnea, edema, light headedness, other Musculoskeletal: negative: Neck Pain, Shoulder Pain, Arm Pain, Back Pain, Hand Pain, Leg Pain, Foot Pain, Other - Medications/Allergies Allergies/Adverse Reactions: Allergies Allergy/AdvReac Type Severity Reaction Status Date / Time No Known Allergies Allergy Verified 11/24/17 12:30
--- NOTE | 2017-12-16 11:55 | DIS ---
DATE OF ADMISSION: 12/06/2017 DATE OF DISCHARGE: 12/16/2017 ADMITTING DIAGNOSES: 1. Sepsis with fevers. 2. Sepsis with severe diarrhea. DISCHARGE DIAGNOSES: Sepsis with Staphylococcus infection from Port-A-Cath infection. SECONDARY DIAGNOSES: 1. Viral gastroenteritis. 2. Acute urinary tract infection. 3. Immunocompromised state from chemotherapy. 4. Metastatic breast cancer. 5. Uncontrolled hypertension. 6. Chronic sinus tachycardia. 7. Bacteremia with Staphylococcus lugdunensis. GROUP RESERVATIONS COORDINATOR INVOLVED IN THE CARE: Dr. Duran. HISTORY OF PRESENT ILLNESS AND HOSPITAL COURSE: In brief, this is a 37-year-old -[place] fem tran, who has a known history of breast cancer, metastatic to the bone. She has been under chemothera py at Dr. Duran's office and has developed severe diarrhea with fever of 101 in the ER and she was admitted for further evaluation of her fever and elevated white count. The patient was initially on cyclophosphamide and Taxotere and her first cycle was completed on 11/27/2017. The patient developed some chest pain to deep inspiration in the right parasternal area, associated with some dry cough. The patient was started on Flagyl, vancomycin, cefepime, and Levaquin. Lorenzana cultures have been obtain ed in the ER. Dr. Menendez was consulted for help with the possible MediPort leakage. The patient had tenderness and swelling at the MediPort site and associated with fever. It was suggestive of the pat ient has a possible port infection. The possible bugs of the MediPort infection are gram-negative ro ds of Staph aureus or coag negative. The patient was continued on vancomycin until the cultures were back. Then, later on it was noted that the patient had positive blood cultures, which are growing c oag-negative Staph and one of them was growing Staphylococcus lugdunensis. Later on, the urine cultu re was also growing the same bug, Staphylococcus lugdunensis, and the patient was initially started o n vancomycin and cefepime and was later on transitioned to Rocephin once the sensitivities were back. It was decided to continue on the IV antibiotic until at least 4-6 weeks, which is ending on 2016. During this hospitalization, the patient developed increasingly elevated blood pressures, as s he was also on IV fluids and she was getting NSAIDs consistently every 6 hours, because of the pain a nd this was started by Kelsie Benson, nurse practitioner, Oncology. Patient also had a markedly elevated heart rate, which has been chronically elevated and has been stephane luated by Dr. Zachary Danielson as outpatient. The patient was initially started on Coreg with no bene fit with heart rate reduction. On the day of discharge, this was stopped. During this admission, be cause of the worsening edema and pain, a CT of the chest was also ordered, which showed an intraventr icular vein thrombosis, which was the primary reason for her worsening edema on the neck and on the c hest and this, as per discussion with the Nephrology, Dr. Matt, on a formal discussion, he did explain that most likely it could be because of the complicated catheter on the left internal jugular . This could be the source of the catheter infection. So, the patient was started on Lovenox 1 mg/k g b.i.d. and later on transitioned to Xarelto, which the patient is supposed to be taking 15 mg twice a day for 21 days and later on changed to 20 mg p.o. daily. Patient was unfunded and the administra tion was able to provide her jonas treatment for another antibiotic as well as anticoagulant. Mae wagner was discharged in stable condition and will follow up at the infusion center every day for IV ant ibiotic through her PICC line until 01/07/2018. Patient is discharged home in stable condition. PHYSICAL EXAMINATION: On the day of discharge, VITAL SIGNS: Blood pressure of 140/96, heart rate of 116, respiratory rate of 16, saturation 97% on room air. CARDIOVASCULAR: S1 and S2 normal, tachycardia. LUNGS: Bilateral air entry was equal. No wheezing, no crackles. ABDOMEN: Soft, nontender, no guarding, no rebound tenderness. Bowel sounds normal. DISCHARGE MEDICATIONS: 1. Cholecalciferol. 2. Cyclobenzaprine 10 mg p.o. t.i.d. 3. Loperamide 2 mg p.o. as directed. 4. Alprazolam 0.5 mg at bedtime. 5. Tramadol 50 mg q.6 hours p.r.n. 6. Zolpidem 10 mg p.o. at bedtime. 7. The patient is continued on Xarelto 15 mg p.o. b.i.d. for 17 more days and then transitioned to 2 0 mg p.o. daily for at least 3-6 months. 8. Rocephin 2 grams daily will be continued until 01/07/2018. DISCHARGE INSTRUCTIONS: Continue activity as tolerated. Advised to follow up with Oncology team as their recommendations for infusion as well as chemotherapy. Continue cardiac diet. The patient has markedly elevated heart rate and blood pressures and she will follow up with primary care physician for further management of tachycardia. I spent 35 minutes with this patient on the day of discharge.
== END 2017-12-15 16:43 | disposition home or self-care (01) | DRG 314 ==
LOC: ERS 04:49 → 2NO 10:57 → ONC 12-07 12:55
PROVIDERS: ADMIT Internal Medicine; ATTEND Internal Medicine
PROC: 02HV33Z Insertion of Infusion Device into Superior Vena Cava, Percutaneous Approach (ICD-10-PCS; 2017-12-07)
PROC: B548ZZA Ultrasonography of Superior Vena Cava, Guidance (ICD-10-PCS; 2017-12-07)
PROC: 0JPT0WZ Removal of Totally Implantable Vascular Access Device from Trunk Subcutaneous Tissue and Fascia, Open Approach (ICD-10-PCS; principal; 2017-12-09)
PROC: 02PYX3Z Removal of Infusion Device from Great Vessel, External Approach (ICD-10-PCS; 2017-12-09)
DX: T82.7XXA Infection and inflammatory reaction due to other cardiac and vascular devices, implants and grafts, initial encounter (principal); A41.1 Sepsis due to other specified staphylococcus; R65.20 Severe sepsis without septic shock; A09 Infectious gastroenteritis and colitis, unspecified; C79.51 Secondary malignant neoplasm of bone; I82.A12 Acute embolism and thrombosis of left axillary vein; C78.7 Secondary malignant neoplasm of liver and intrahepatic bile duct; C78.00 Secondary malignant neoplasm of unspecified lung; I10 Essential (primary) hypertension; Z79.899 Other long term (current) drug therapy; C50.112 Malignant neoplasm of central portion of left female breast; C50.111 Malignant neoplasm of central portion of right female breast; D63.0 Anemia in neoplastic disease; E86.0 Dehydration; D70.1 Agranulocytosis secondary to cancer chemotherapy; Z90.11 Acquired absence of right breast and nipple
CPT/HCPCS: 36415; 36569; 36598; 70491; 71046; 71260; 71275; 80048; 80053; 80202; 81003; 82553; 82565; 83605; 83690; 83880; 84439; 84443; 84484; 84703; 85014; 85018; 85025; 85049; 85379; 87040; 87045; 87046; 87071; 87077; 87081; 87086; 87149; 87186; 87449; 87804; 87899; 93005; 93306; 93970; 96361; 96365; 96367; 96375; J1885; A4216; C1751; J0692; J0696; J1650; J1956; J2001; J2250; J2270; J2543; J2704; J2997; J3010; J3370; J7050; S0028

== ENCOUNTER 2017-12-25 10:37 | Day surgery (SDC) | payer OTHER ==
[2017-12-25] MEDS ORDERED: Pegfilgrastim 6 MG/0.6 ML Delivery Kit SQ SCH (11:00)
[2017-12-25] MEDS ORDERED: PALONOSETRON HCL 0.05 MG/ML 5 ML VIAL IVP SCH (11:00)
[2017-12-25] MEDS ORDERED: Dexamethasone 10 MG/ML VIAL SLOW IVP SCH (11:00)
[2017-12-25] MEDS ORDERED: Cyclophosphamide 1 GM in Sodium Chloride 0.9% 250 ML 250 ML IVPB SCH (11:15)
[2017-12-25] MEDS ORDERED: SODIUM CHLORIDE 0.9% IVPB SCH ×3 (11:15→11:30)
[2017-12-25] MEDS ORDERED: DOCETAXEL IVPB SCH (11:15)
[2017-12-25] MEDS ORDERED: GANCICLOVIR SODIUM IVPB SCH (11:30)
[2017-12-25] MEDS ORDERED: CYCLOPHOSPHAMIDE IVPB SCH ×2 (11:30)
[2017-12-25] MEDS ORDERED: Sodium Chloride 0.9% 50 ML ONE (12:25)
== END 2017-12-25 15:49 | disposition home or self-care (01) ==
LOC: ONC/OP 10:37
PROVIDERS: ATTEND Internal Medicine Hematology & Oncology
DX: Z51.11 Encounter for antineoplastic chemotherapy (principal); C50.111 Malignant neoplasm of central portion of right female breast; C78.2 Secondary malignant neoplasm of pleura; J45.909 Unspecified asthma, uncomplicated
CPT/HCPCS: 96375; 96377; 96413; 96417; A4216; J1100; J1570; J1642; J2469; J2505; J7050; J9070; J9171

== ENCOUNTER 2018-01-15 10:43 | Day surgery (SDC) | payer OTHER ==
[2018-01-15] MEDS ORDERED: Sodium Chloride 0.9% 50 ML ONE (11:00)
[2018-01-15] MEDS ORDERED: Dexamethasone 10 MG/ML VIAL SLOW IVP SCH (11:15)
[2018-01-15] MEDS ORDERED: CYCLOPHOSPHAMIDE IVPB SCH (11:15)
[2018-01-15] MEDS ORDERED: DOCETAXEL IVPB SCH ×2 (11:15→11:30)
[2018-01-15] MEDS ORDERED: Pegfilgrastim 6 MG/0.6 ML Delivery Kit SQ SCH (11:15)
[2018-01-15] MEDS ORDERED: SODIUM CHLORIDE 0.9% IVPB SCH ×3 (11:15→11:30)
[2018-01-15] MEDS ORDERED: PALONOSETRON HCL 0.05 MG/ML 5 ML VIAL IVP SCH (11:15)
[2018-01-15] MEDS ORDERED: Zoledronic Acid 4 MG in Sodium Chloride 0.9% 100 ML IVPB SCH (11:15)
[2018-01-15 11:28] VITALS: BP 126/72; TEMP 99.4
== END 2018-01-15 18:15 | disposition home or self-care (01) ==
LOC: ONC/OP 10:43
PROVIDERS: ATTEND Internal Medicine Hematology & Oncology
DX: Z51.11 Encounter for antineoplastic chemotherapy (principal); C50.111 Malignant neoplasm of central portion of right female breast; C78.2 Secondary malignant neoplasm of pleura; J45.909 Unspecified asthma, uncomplicated; Z17.0 Estrogen receptor positive status [ER+]; Z79.899 Other long term (current) drug therapy
CPT/HCPCS: 96367; 96375; 96377; 96413; 96417; A4216; J1100; J1642; J2469; J2505; J3489; J7050; J9070; J9171

== ENCOUNTER 2018-02-04 08:38 | Outpatient (CLI) | payer OTHER ==
[2018-02-04] MEDS ORDERED: ISOVUE-370 76%-LOCM 1 ML ONE (12:53)
== END 2018-02-04 08:39 | disposition home or self-care (01) ==
LOC: BICCT 08:38
PROVIDERS: ATTEND Internal Medicine Hematology & Oncology
DX: C50.111 Malignant neoplasm of central portion of right female breast (principal); C78.2 Secondary malignant neoplasm of pleura; R91.1 Solitary pulmonary nodule
CPT/HCPCS: 71260; 74177

== ENCOUNTER 2018-02-05 12:35 | Day surgery (SDC) | payer OTHER ==
[2018-02-05] MEDS ORDERED: CYCLOPHOSPHAMIDE IVPB SCH (13:00)
[2018-02-05] MEDS ORDERED: Palonosetron HCl 0.25 MG in Sodium Chloride 0.9% 50 ML IVPB SCH (13:00)
[2018-02-05] MEDS ORDERED: Pegfilgrastim 6 MG/0.6 ML Delivery Kit SQ SCH (13:00)
[2018-02-05] MEDS ORDERED: Dexamethasone 10 MG in Sodium Chloride 0.9% 50 ML IVPB SCH (13:00)
[2018-02-05] MEDS ORDERED: DOCEtaxel 140 MG in Sodium Chloride 0.9% 250 ML 250 ML IVPB SCH (13:00)
[2018-02-05] MEDS ORDERED: SODIUM CHLORIDE 0.9% IVPB SCH (13:00)
== END 2018-02-05 16:48 | disposition home or self-care (01) ==
LOC: ONC/OP 12:35
PROVIDERS: ATTEND Internal Medicine Hematology & Oncology
DX: Z51.11 Encounter for antineoplastic chemotherapy (principal); C78.2 Secondary malignant neoplasm of pleura; C78.7 Secondary malignant neoplasm of liver and intrahepatic bile duct; C50.111 Malignant neoplasm of central portion of right female breast; J45.909 Unspecified asthma, uncomplicated; Z17.0 Estrogen receptor positive status [ER+]
CPT/HCPCS: 96375; 96377; 96413; 96417; J1100; J2469; J2505; J7050; J9070; J9171

== ENCOUNTER 2018-02-26 11:44 | Day surgery (SDC) | payer OTHER ==
[2018-02-26] MEDS ORDERED: HYDROcodone/Acetaminophen 10/325 mg Tablet PO SCH (12:15)
[2018-02-26] MEDS ORDERED: Palonosetron HCl 0.25 MG in Sodium Chloride 0.9% 50 ML IVPB SCH (12:30)
[2018-02-26] MEDS ORDERED: Dexamethasone 10 MG in Sodium Chloride 0.9% 50 ML IVPB SCH (12:30)
[2018-02-26] MEDS ORDERED: DOCEtaxel 140 MG in Sodium Chloride 0.9% 250 ML 250 ML IVPB SCH (13:00)
[2018-02-26] MEDS ORDERED: CYCLOPHOSPHAMIDE IVPB SCH (13:00)
[2018-02-26] MEDS ORDERED: SODIUM CHLORIDE 0.9% IVPB SCH (13:00)
[2018-02-26] MEDS ORDERED: Pegfilgrastim 6 MG/0.6 ML Delivery Kit SQ SCH (13:00)
[2018-02-26] MEDS ORDERED: Sodium Chloride 0.9% 30 ML ONE (16:27)
[2018-02-26 18:26] VITALS: BP 132/79; TEMP 98.3
== END 2018-02-26 18:41 | disposition home or self-care (01) ==
LOC: ONC/OP 11:44
PROVIDERS: ATTEND Internal Medicine Hematology & Oncology
DX: Z51.11 Encounter for antineoplastic chemotherapy (principal); C50.111 Malignant neoplasm of central portion of right female breast; C78.2 Secondary malignant neoplasm of pleura; C78.7 Secondary malignant neoplasm of liver and intrahepatic bile duct; J45.909 Unspecified asthma, uncomplicated; Z79.01 Long term (current) use of anticoagulants; Z79.899 Other long term (current) drug therapy
CPT/HCPCS: 96375; 96377; 96413; 96417; A4216; J1100; J1642; J2469; J2505; J7050; J9070; J9171

== ENCOUNTER 2018-03-19 14:23 | Day surgery (SDC) | payer OTHER ==
[2018-03-19] MEDS ORDERED: Dexamethasone 10 MG in Sodium Chloride 0.9% 50 ML IVPB SCH (14:30)
[2018-03-19] MEDS ORDERED: Pegfilgrastim 6 MG/0.6 ML Delivery Kit SQ SCH (14:30)
[2018-03-19] MEDS ORDERED: PALONOSETRON HCL 0.05 MG/ML 5 ML VIAL IVP SCH (14:30)
[2018-03-19] MEDS ORDERED: Cyclophosphamide 1 GM in Sodium Chloride 0.9% 250 ML 250 ML IVPB SCH (14:45)
[2018-03-19] MEDS ORDERED: DOCEtaxel 140 MG in Sodium Chloride 0.9% 250 ML 250 ML IVPB SCH (14:45)
[2018-03-19 17:49] VITALS: BP 122/70; TEMP 98.7
== END 2018-03-19 19:28 | disposition home or self-care (01) ==
LOC: ONC/OP 14:23
PROVIDERS: ATTEND Internal Medicine Hematology & Oncology
DX: Z51.11 Encounter for antineoplastic chemotherapy (principal); C50.111 Malignant neoplasm of central portion of right female breast; C78.2 Secondary malignant neoplasm of pleura; J45.909 Unspecified asthma, uncomplicated; Z79.899 Other long term (current) drug therapy
CPT/HCPCS: 96375; 96377; 96413; 96417; J1100; J2469; J2505; J7050; J9070; J9171

== ENCOUNTER 2018-04-07 11:34 | Outpatient (CLI) | payer OTHER ==
[~2018-04-07 11:34] MED LIST changes: -Iopamidol 370 76% 50 ML VIAL FS ONE
== END 2018-04-07 11:35 | disposition home or self-care (01) ==
LOC: BICCT 11:34
PROVIDERS: ATTEND Internal Medicine Hematology & Oncology
DX: C78.2 Secondary malignant neoplasm of pleura (principal); C50.911 Malignant neoplasm of unspecified site of right female breast; C79.51 Secondary malignant neoplasm of bone; R91.8 Other nonspecific abnormal finding of lung field; R16.0 Hepatomegaly, not elsewhere classified; Z90.11 Acquired absence of right breast and nipple
CPT/HCPCS: 71260; 74177

== ENCOUNTER 2018-04-09 11:54 | Day surgery (SDC) | payer OTHER ==
[2018-04-09] MEDS ORDERED: Sodium Chloride 0.9% 20 ML ONE (12:03)
[2018-04-09] MEDS ORDERED: Zoledronic Acid 4 MG in Sodium Chloride 0.9% 100 ML IVPB SCH (12:15)
[2018-04-09 13:14] VITALS: BP 142/68; TEMP 97.6
== END 2018-04-09 16:12 | disposition home or self-care (01) ==
LOC: ONC/OP 11:54
PROVIDERS: ATTEND Internal Medicine Hematology & Oncology
DX: Z51.11 Encounter for antineoplastic chemotherapy (principal); C50.111 Malignant neoplasm of central portion of right female breast; C78.2 Secondary malignant neoplasm of pleura; C78.7 Secondary malignant neoplasm of liver and intrahepatic bile duct; C77.1 Secondary and unspecified malignant neoplasm of intrathoracic lymph nodes; C77.3 Secondary and unspecified malignant neoplasm of axilla and upper limb lymph nodes; G47.00 Insomnia, unspecified; J45.909 Unspecified asthma, uncomplicated; Z17.0 Estrogen receptor positive status [ER+]; Z98.890 Other specified postprocedural states
CPT/HCPCS: 96365; A4216; J1642; J3489; J7050

== ENCOUNTER 2018-04-10 14:44 | Outpatient (CLI) | payer OTHER | END 2018-04-10 14:45 | disposition home or self-care (01) | LOC: BICRAD 14:44 | PROVIDERS: ATTEND Radiology Radiation Oncology | DX: C50.919 Malignant neoplasm of unspecified site of unspecified female breast (principal); C79.51 Secondary malignant neoplasm of bone; M89.9 Disorder of bone, unspecified ==

== ENCOUNTER 2018-04-17 13:49 | Emergency (ER) | payer OTHER, SELFPAY ==
[2018-04-17] MEDS ORDERED: Ondansetron HCl/PF 4 MG/2 ML Vial ONE (14:44)
[2018-04-17 15:22] LABS: Anion Gap 13 mmol/L (10-20); BUN (Urea Nitrogen) 10 mg/dL (7.0-18.7); Calc. Creatinine Clearance 0 mL/min (70-130); Calcium 9.4 mg/dL (7.8-10.44); Carbon Dioxide 26 mmol/L (22-29); Chloride 100 mmol/L (98-107); Estimated GFR-MDRD Greater than 90; Glucose 97 mg/dL (70-105); Potassium 4.2 mmol/L (3.5-5.1); Sodium 135 mmol/L (136-145)
--- NOTE | 2018-04-17 16:39 | CT ---
CT HEAD WITH AND WITHOUT CONTRAST: 04/17/18 Multiple axial tomograms obtained through the head both pre and post IV contrast administration. INDICATIONS: Headache. Possible recent head injury. The noncontrast study shows no evidence of intracranial hemorrhage. There is no mass, edema, or hemor rhage identified. The postcontrast exam shows no evidence of abnormal enhancement. There is scattered calvarial lucencies most consistent with arachnoid granulomas. Sinuses and mastoid s are aerated. IMPRESSION: No evidence of acute process. POS: [facility]
== END 2018-04-17 17:13 | disposition home or self-care (01) ==
LOC: ERS 13:49
DX: M54.81 Occipital neuralgia (principal); J45.909 Unspecified asthma, uncomplicated; Z79.01 Long term (current) use of anticoagulants; Z79.899 Other long term (current) drug therapy; Z79.891 Long term (current) use of opiate analgesic
CPT/HCPCS: 70470; 80048; 96361; 96374; 96375; J1642; J2270; J2405

== ENCOUNTER 2018-06-29 13:45 | Emergency (ER) | payer OTHER, SELFPAY ==
[2018-06-29] MEDS ORDERED: Ketorolac Tromethamine 30 MG/ML VIAL ONE (14:59)
[2018-06-29] MEDS ORDERED: cefTRIAXone\\ROCEPHIN 500 MG VIAL ONE (14:59)
[2018-06-29] MEDS ORDERED: Lidocaine 1% PF 5 ML VIAL ONE (14:59)
== END 2018-06-29 15:59 | disposition home or self-care (01) ==
LOC: ERS 13:45
DX: K04.7 Periapical abscess without sinus (principal); K02.9 Dental caries, unspecified
CPT/HCPCS: 96372; J0696; J1885; J2001

== ENCOUNTER 2018-07-07 08:38 | Outpatient (CLI) | payer OTHER ==
--- NOTE | 2018-07-07 11:35 | CT ---
CT THORAX WITH IV CONTRAST: CT ABDOMEN AND PELVIS WITH IV CONTRAST: 07/07/2018 HISTORY: Malignant neoplasm of breast. Secondary neoplasm of pleura. History of right mastectomy. COMPARISON: 04/07/2018. FINDINGS: THORAX: Left-sided PICC line remains in place, with the tip at the level of the distal SVC. The lef t internal jugular vein again remains thrombosed and atretic. The small pericardial effusion noted o n the prior exam has also resolved. The previously described pleural-based, hypodense area, medial aspect, right lung base, abutting the lower thoracic spine, is again seen, and now measures slightly larger in size, measuring 3.8 cm x 1.3 cm, and previously measured 2.5 cm x 1.3 cm. This is, again, probably related to a small loculated area of pleural fluid. There is a small ground glass appearing nodule again present within the lateral aspect of the right l ower lobe, stable compared to the prior exam. This measures approximately 6 mm. There are a few reticulonodular densities seen in the right lung base. There are a few tiny, 4 mm no dular densities seen within the superior segment of the right lower lobe, some of which are pleural-b ased and may be related to minimal nodular pleural thickening. There is an approximately 4 mm nodula r density at the anterior aspect of the left upper lobe, also stable when compared to the prior study , as well as the study on 11/12/2017. There is a closely adjacent, smaller pulmonary nodule also see n within the left upper lobe. There is mild nonspecific ground glass density seen within the left lower lobe, and to a lesser degre e in the right lower lobe. There is stable linear density seen along the right paramediastinal location, which may be related to scarring or possibly post radiation type changes. No enlarged lymph nodes are seen by CT size criteria. Post surgical changes related to right mastectomy and reconstructive surgery area again noted. The small lytic lesions within the most inferior aspect of the right scapula are again present. Ther e is irregularity with lucencies present within the manubrium. While sclerotic foci were seen in the se regions on the prior exam, there are lucencies in these regions on today's exam. There are scattered sclerotic metastatic lesions within several thoracic vertebral bodies, also seen on prior exams, with a mixed lytic and sclerotic appearance again seen involving the T4 vertebral bod y. ABDOMEN: The previously described right hepatic lobe hypodense lesion is again present, with the ove rall transverse dimension on today's exam of 1.4 cm and previously measured 1.6 cm. No new hepatic l esion is appreciated. The liver does demonstrate diminished attenuation, compared to the spleen, whi ch is nonspecific on this post enhanced exam, but may be related to mild fatty infiltration. The spleen, pancreas, bilateral adrenal glands, kidneys, abdominal aorta, and opacified bowel demonst rate a normal CT appearance. The uterus and adnexal structures have a grossly normal appearance. The leyva of the urinary bladder do appear mildly thickened, but this may be attributable to incomple te distention. Again noted are lytic metastatic lesions involving the lumbar spine, pelvis, and proximal left femur. There does appear to be a slight increase in the number of metastatic lytic lesions. Some of the l ytic lesions are slightly larger in size compared to the prior study. The lytic lesion within the ri ght aspect of the L3 vertebral body previously measured 1.7 cm x 1.2 cm and now measures 1.8 cm x 1.4 cm, in craniocaudal and AP dimensions. There is also a new lytic lesion within the left aspect of t he L3 vertebral body, measuring 1.2 cm. The lytic lesion within the L4 vertebral body previously roseanna sured 1.3 cm in AP dimension and now measures 2.1 cm. IMPRESSION: 1. Findings likely related to small focal area of loculated pleural fluid at the posteromedial right lung base. 2. Mild nonspecific ground glass densities at each lung base with slight reticulonodular density at the right lung base. Findings may be related to an infectious or inflammatory process. 3. A few stable scattered pulmonary nodules are seen within the lungs bilaterally. 4. Slight interval decrease in the size of the hypodense right hepatic lobe lesion. No new hepatic lesions are seen. 5. Overall stable metastatic lesions within the manubrium and right scapula, as well as the thoracic spine, but the metastatic lesions involving the lumbar spine and pelvis have slightly increased in n umber, with some of the lesions demonstrating interval increase in size. 6. No evidence of lymphadenopathy. POS: [facility]
== END 2018-07-07 08:39 | disposition home or self-care (01) ==
LOC: BICCT 08:38
PROVIDERS: ATTEND Internal Medicine Hematology & Oncology
DX: C78.2 Secondary malignant neoplasm of pleura (principal); C50.111 Malignant neoplasm of central portion of right female breast; C79.51 Secondary malignant neoplasm of bone; R91.8 Other nonspecific abnormal finding of lung field; K76.9 Liver disease, unspecified
CPT/HCPCS: 71260; 74177

== ENCOUNTER 2018-07-29 10:22 | Emergency (ER) | payer OTHER ==
[2018-07-29] MEDS ORDERED: Morphine 4 MG/ML VIAL ONE (11:35)
[2018-07-29 11:57] LABS: #Eosinphils 0.3 thou/uL (0.0-0.7); #Monocytes 0.3 thou/uL (0.11-0.59); %Basophils 0.4 % (0.0-1.0); %Eosinophils 8.2 % (0.0-10.0); %Lymphocytes 27.3 % (21.0-51.0); %Monocytes 8.7 % (0.0-10.0); %Neutrophils 55.4 % (42.0-75.0); Hemoglobin 10.5 g/dL (12.0-16.0); Mean Corpuscular HGB CONC 31.5 g/dL (32.0-36.0); Mean Corpuscular Hemoglobin 24.5 pg (27.0-31.0); Mean Corpuscular Volume 77.7 fL (78.0-98.0); Mean Platelet Volume 9.7 fL (7.4-10.4); Platelet Count 186 thou/uL (130-400); RBC Distribution Width 16.4 % (11.5-14.5); Red Blood Cell (RBC) Count 4.28 mill/uL (4.20-5.40); White Blood Cell (WBC) Count 3.7 thou/uL (4.8-10.8)
--- NOTE | 2018-07-29 12:14 | ULT ---
LEFT LOWER EXTREMITY VENOUS DOPPLER WITH SPECTRAL ANALYSIS AND COLOR FLOW EVALUATION: Date: 07/29/18 HISTORY: Left lower extremity swelling/edema. History of breast cancer with metastatic disease. Left leg pain and left leg swelling for 1 month. TECHNIQUE: Morillo scale, color flow, Doppler evaluation, and spectral analysis of the left lower extremity venous structures is performed with 2D imaging. The left lower extremity common femoral, superficial femoral , popliteal, posterior tibial, most proximal greater saphenous, and profunda femoral veins are imaged . FINDINGS: There is normal lumen compressibility, flow, and augmentation in the visualized deep venous structure s of the left lower extremity. IMPRESSION: No evidence of a deep venous thrombosis involving the visualized deep venous structures of the left l ower extremity. POS: [facility]
[2018-07-29 13:07] LABS: Anion Gap 15 mmol/L (10-20); BUN (Urea Nitrogen) 11 mg/dL (7.0-18.7); Calc. Creatinine Clearance 0 mL/min (70-130); Calcium 9.9 mg/dL (7.8-10.44); Carbon Dioxide 27 mmol/L (22-29); Chloride 103 mmol/L (98-107); Estimated GFR-MDRD Greater than 90; Glucose 112 mg/dL (70-105); Potassium 3.8 mmol/L (3.5-5.1); Sodium 141 mmol/L (136-145)
[2018-07-29] MEDS ORDERED: Ketorolac Tromethamine 30 MG/ML VIAL ONE (13:08)
--- NOTE | 2018-07-29 16:03 | CT ---
CT ABDOMEN AND PELVIS: 07/29/2018 HISTORY: Assess for pelvic venous thrombosis. COMPARISON: 09/14/2017, 07/07/2018, 04/07/2018, 02/04/2018 TECHNIQUE: Axial CT imaging is obtained at 2.5 mm intervals, from the lung bases through the pubic symphysis, wi th IV contrast, using a CT venogram protocol. Coronal and sagittal reformatted imaging obtained. FINDINGS: Partially visualized right breast implant present. Nonspecific new small volume pleural fluid noted on the right with a slightly lobulated contour media lly. This has worsened when compared to the 07/07/2018 examination, where there was medial pleural-b ased density, measuring 1.3 x 3.8 cm. This new pleural process could be on the basis of metastatic d isease. The imaged lung base is otherwise unremarkable. There is diffuse hypodensity of the hepatic parenchy ma, evidence of steatosis. This limits assessment for focal liver lesions. Recent study performed 1 09/07/2017 demonstrated a peripheral low density lesion within the liver, measuring 1.4 cm, grossly un changed on today's examination. The gallbladder and spleen appear grossly unremarkable. The pancreas and adrenal glands appear grossly unremarkable. The bilateral kidneys demonstrate no ac [place] findings. Lack of oral contrast limits assessment of the bowel. There is incompletely imaged edematous change and enlargement of the musculature within the proximal left thigh, with stranding of the subcutaneous fat in the left gluteal region. There is good opacification of the venous structures with no evidence for venous thrombus within the common femoral vein, common iliac vein, or IVC on either side. The venous structures appear stable w hen compared to prior imaging. There is mild narrowing of the left common iliac vein as it passes be hind the right common iliac artery. There is mild nonspecific increased density within the perirectal fat/presacral fat. Limited evaluation of the bowel demonstrates no evidence for obstruction. No inguinal, retroperitoneal, or mesenteric lymphadenopathy is seen. Review of the osseous structure s demonstrates a lytic lesion within the inferior tip of the scapula, on the right. There are sriram us lytic and sclerotic lesions throughout the imaged thoracic spine and lumbar spine, evidence of wid espread osseous metastatic disease. There are numerous osseous lesions also noted within the iliac b ones bilaterally and throughout the sacrum. Prominent lytic lesion noted in the acetabular roof on t he left. There are numerous lesions involving the proximal left femur, including the head and neck. Multiple lesions are noted within the inferior pubic ramus on the left and the superior pubic ramus anteriorly on the right. IMPRESSION: 1. There are edematous changes within the imaged left thigh. The venous structures of the abdom en/pelvis demonstrate no evidence for thrombosis. 2. 2. Small volume, nonspecific stranding/fluid within the presacral space, which could be on the basis of nonspecific edema/inflammatory process or metastatic disease. 3. Worsening pleural-based density noted in the medial right lung base with new small right pleural effusion. This is suspicious for metastatic disease. 4. Widespread osseous metastatic disease. Results called to Dr. Vega at 3:15 p.m. on 07/29/2018. CODE CR POS: [facility]
== END 2018-07-29 13:32 | disposition home or self-care (01) ==
LOC: ERS 10:22
DX: M79.89 Other specified soft tissue disorders (principal); M79.662 Pain in left lower leg; Z79.899 Other long term (current) drug therapy
CPT/HCPCS: 74177; 80048; 85025; 85379; 96361; 96374; 96375; J1885; J2270

== ENCOUNTER 2018-08-12 14:26 | Day surgery (SDC) | payer OTHER, SELFPAY ==
[2018-08-12 14:38] VITALS: BP 122/65; TEMP 98.4
== END 2018-08-12 16:06 | disposition home or self-care (01) ==
LOC: ONC/OP 14:26
PROVIDERS: ATTEND Internal Medicine Hematology & Oncology
DX: Z51.12 Encounter for antineoplastic immunotherapy (principal); C50.111 Malignant neoplasm of central portion of right female breast; C78.2 Secondary malignant neoplasm of pleura; C79.51 Secondary malignant neoplasm of bone; Z79.899 Other long term (current) drug therapy; Z91.011 Allergy to milk products
CPT/HCPCS: 96372; J0897

== ENCOUNTER 2018-08-16 17:19 | Inpatient (IN) | payer OTHER, SELFPAY ==
[2018-08-16 17:59] LABS: #Eosinphils 0.5 thou/uL (0.0-0.7); #Lymphocytes 1.1 thou/uL (1.20-3.40); #Monocytes 0.4 thou/uL (0.11-0.59); #Neutrophils 6.3 thou/uL (1.40-6.50); %Basophils 0.2 % (0.0-1.0); %Lymphocytes 13.1 % (21.0-51.0); %Monocytes 5.3 % (0.0-10.0); %Neutrophils 75.5 % (42.0-75.0); Hemoglobin 11.4 g/dL (12.0-16.0); Mean Corpuscular HGB CONC 31.7 g/dL (32.0-36.0); Mean Corpuscular Hemoglobin 23.9 pg (27.0-31.0); Mean Corpuscular Volume 75.4 fL (78.0-98.0); Mean Platelet Volume 8.9 fL (7.4-10.4); Platelet Count 301 thou/uL (130-400); RBC Distribution Width 16.2 % (11.5-14.5); Red Blood Cell (RBC) Count 4.76 mill/uL (4.20-5.40); White Blood Cell (WBC) Count 8.4 thou/uL (4.8-10.8)
[2018-08-16 18:22] LABS: ALT (SGPT) 32 U/L (8-55); AST (SGOT) 40 U/L (5-34); Albumin 4.5 g/dL (3.5-5.0); Alkaline Phosphatase 175 U/L (40-150); Anion Gap 20 mmol/L (10-20); BUN (Urea Nitrogen) 8 mg/dL (7.0-18.7); Bilirubin, Total 0.2 mg/dL (0.2-1.2); CK (CPK) 280 U/L (29-168); Calc. Creatinine Clearance 0 mL/min (70-130); Calcium 9.5 mg/dL (7.8-10.44); Carbon Dioxide 20 mmol/L (22-29); Chloride 102 mmol/L (98-107); Estimated GFR-MDRD Greater than 90; Globulin 3.7 g/dL (2.4-3.5); Glucose 99 mg/dL (70-105); Potassium 3.8 mmol/L (3.5-5.1); Protein, Total 8.2 g/dL (6.0-8.3); Sodium 138 mmol/L (136-145)
[2018-08-16] MEDS ORDERED: Morphine 4 MG/ML VIAL ONE (18:27)
[2018-08-16 18:49] LABS: Bilirubin Negative (Negative); Blood, Urine Negative (Negative); Clarity CLEAR (Clear); Glucose, Urine (Dipstick) Negative (Negative); Leukocyte Negative (Negative); Nitrite Negative (Negative); Protein, Urine (Dipstick) Negative (Neg-Trace); Specific Gravity, Urine 1.006 (1.002-1.036); Urobilinogen 0.2 mg/dL (0.2-1.0); pH, Urine 6.5 (5.0-9.0)
[2018-08-16] MEDS ORDERED: Sodium Chloride 0.9% 1,000 ML IV SCH (20:30)
[2018-08-16] MEDS ORDERED: Ondansetron PF 4 MG/2 ML Vial IVP PRN (21:05)
[2018-08-16] MEDS ORDERED: Morphine 4 MG/ML VIAL SLOW IVP PRN (21:07)
[2018-08-16] MEDS ORDERED: Cyclobenzaprine 10 MG TAB PO PRN (22:21)
[2018-08-16] MEDS: Sodium Chloride 0.9% 1,000 ML IV SCH (22:30)
[2018-08-16] MEDS: ALPRAZolam 0.5 MG TAB PO PRN (22:43)
[2018-08-16] MEDS ORDERED: DOXYLAMINE PO PRN (22:45)
[2018-08-16] MEDS ORDERED: DEXTROMETHORPHAN HB PO PRN (22:45)
--- NOTE | 2018-08-17 01:41 | HP ---
PRIMARY CARE DOCTOR: Dr. Ruiz Muhammad. CODE STATUS: Full code. TIME OF EVALUATION: 9 p.m. CHIEF COMPLAINT: Diarrhea. HISTORY OF PRESENT ILLNESS: This is a 38-year-old female patient with past medical history of breast cancer with mets to the bone, the patient has received chemo, radiation, and surgery for this disease. The patient came to the hospital after having an episode of diarrhea that has been bloody. Today, she had about 20 to 25 episodes of diarrhea during the day, this has been happening with no clear triggers. No alleviating factors. The only event that she can recall is taking antibiotics for an upper respiratory infection in the past week and this being getting worse. Symptoms are severe. REVIEW OF SYSTEMS: CONSTITUTIONAL: No fever or chills. The patient has generalized weakness. RESPIRATORY: No cough, sputum production, shortness of breath. CARDIOVASCULAR: No chest pain or palpitation. GASTROINTESTINAL: No nausea, no vomiting. The patient has multiple episodes of diarrhea as described in HPI and abdominal pain. HEALTHCARE PROF: No dizziness, headache, or feeling lightheaded. GENITOURINARY: No burning on urination. EXTREMITIES: No leg swelling. All other systems were reviewed and negative except for the findings mentioned above. PAST MEDICAL HISTORY: Metastatic breast cancer. PAST SURGICAL HISTORY: Right mastectomy with reconstruction, bilateral ovary removal, multiple biopsy. PSYCH HISTORY: No previous psych history. No previous inpatient psych admissions. No previous emergency department psych evaluations. SOCIAL HISTORY: No alcohol, no drugs, no smoking history. KNOWN ALLERGIES: No known drug allergies reported. MEDICATIONS: 1. [place]. 2. Afinitor. 3. Aromasin. 4. Sucralfate. 5. Nexium. 6. Probiotic. 7. Flagyl. PHYSICAL EXAMINATION: VITAL SIGNS: On presentation, blood pressure 133/76, heart rate 122, respiratory rate was 20, temperature 98.9, pain 10/10, oxygen saturation was 100 on room air. GENERAL APPEARANCE: The patient was alert and oriented, not in acute distress. HEENT: Eyes; normal conjunctivae. Moist oral mucosa. Anicteric. No JVD. RESPIRATORY: Bilateral air entry. No rales. No wheezing. Symmetric expansion. CARDIOVASCULAR: Normal rate, regular rhythm. No murmurs. No gallops. No edema. ABDOMEN: Soft. Normal bowel sounds. Mildly tender. MUSCULOSKELETAL: Baseline range of motion. No sternal tenderness. SKIN: Warm, intact. No pallor. No rash. No redness. Peripheral pulses are present. Capillary refill seems to be intact. NEURO: No evidence of any new focal weakness. Baseline speech. Cranial nerves seems to be intact. PSYCH: The patient is in good mood. No anxiety. Oriented. Optimal judgment. LABORATORY DATA: Labs were reviewed. The patient has white count of 9.4, hemoglobin 11.4, MCV 75, platelet count 301. Chemistry; sodium 138, potassium 3.8, chloride 102, carbon dioxide 20, anion gap 20, BUN 8, creatinine 0.79, GFR greater than 90, glucose 99, lactic acid 1.7, calcium 9.5, total bilirubin 0.2, AST 40, ALT 32, alkaline phosphatase 175. CK 280. Globulin 3.7. UA was negative. Micro was reviewed. Stool lactoferrin was positive. E coli 0157 hours culture was negative. C diff antigen and toxin was negative. Stool occult blood was positive and Campylobacter antigen assay was positive. ASSESSMENT AND PLAN: The patient will be placed in the hospital with the following medical problems: 1. Acute gastroenteritis due to Campylobacter, we will start the patient on Zithromax since the patient has underlying immunosuppression due to treatment for breast cancer, we will monitor the patient closely. If she has no improvement, we can step up to carbapenems. a. We will continue with hydration, we will treat symptomatically. 2. History of breast cancer, status post chemo, surgery, and radiation, this problem seems to be stable as of now, we will monitor, we will treat accordingly. 3. Microcytic anemia, could be related to acute blood loss, but is stable. Hemoglobin 11.4, we will monitor, we will treat accordingly. The patient is bleeding, but there is no significant blood loss. We will monitor and transfuse and treat accordingly. 4. Deep venous thrombosis prophylaxis. RISK ASSESSMENT: The patient is high risk. This is an immunocompromised patient with an acute campylobacter infection. We will watch for complications. Job ID: [id number]
[2018-08-17] MEDS: Morphine 4 MG/ML VIAL SLOW IVP PRN ×6 (02:16→23:25)
[2018-08-17 04:34] LABS: #Eosinphils 0.4 thou/uL (0.0-0.7); #Lymphocytes 0.8 thou/uL (1.20-3.40); #Monocytes 0.6 thou/uL (0.11-0.59); #Neutrophils 3.6 thou/uL (1.40-6.50); %Basophils 0.5 % (0.0-1.0); %Eosinophils 7.3 % (0.0-10.0); %Lymphocytes 14.6 % (21.0-51.0); %Monocytes 10.5 % (0.0-10.0); %Neutrophils 67.1 % (42.0-75.0); Hemoglobin 10.3 g/dL (12.0-16.0); Mean Corpuscular HGB CONC 31.8 g/dL (32.0-36.0); Mean Corpuscular Hemoglobin 24.8 pg (27.0-31.0); Mean Platelet Volume 9.2 fL (7.4-10.4); Platelet Count 220 thou/uL (130-400); RBC Distribution Width 16.2 % (11.5-14.5); Red Blood Cell (RBC) Count 4.17 mill/uL (4.20-5.40); White Blood Cell (WBC) Count 5.3 thou/uL (4.8-10.8)
[2018-08-17 04:46] LABS: Anion Gap 15 mmol/L (10-20); BUN (Urea Nitrogen) 6 mg/dL (7.0-18.7); Calc. Creatinine Clearance 146 mL/min (70-130); Calcium 8.2 mg/dL (7.8-10.44); Carbon Dioxide 22 mmol/L (22-29); Chloride 108 mmol/L (98-107); Estimated GFR-MDRD Greater than 90; Glucose 95 mg/dL (70-105); Potassium 3.8 mmol/L (3.5-5.1); Sodium 141 mmol/L (136-145)
[2018-08-17] MEDS: Sodium Chloride 0.9% 1,000 ML IV SCH ×2 (05:16→14:00)
[2018-08-17] MEDS: Ascorbic Acid 500 mg Chewable Tablet PO SCH ×3 (08:21→21:12)
[2018-08-17] MEDS: Azithromycin 250 MG TAB PO SCH (08:22)
[2018-08-17] MEDS ORDERED: Pseudoephedrine HCl 30 MG TAB PO PRN (09:33)
--- NOTE | 2018-08-17 13:19 | PDOC.PN ---
- Subjective Encounter Start Date: 08/17/18 Encounter Start Time: 13:17 Patient lying in bed, she reports feeling better today, but still with recurrent bloody watery stools. Campylobacter positive and she is tolerated azithromycin. She denies chest pain or shortness of breath. She however was complaining of nausea this morning which is improved. Also, she reports some sinus congestion and pressure. - Objective Resuscitation Status - Order Detail: 08/16/18 22:19 Resuscitation Status Routine Resuscitation Status: FULL: Full Resuscitation MAR Reviewed: Yes Vital Signs & Weight: Vital Signs (12 hours) Temp Pulse Resp BP BP Pulse Ox 08/17/18 11:00 98.4 F 106 H 16 121/75 100 08/17/18 08:21 99.0 F 104 H 12 113/67 100 Weight Admit Weight 177 lb Weight 177 lb I&O: 08/16/18 08/17/18 08/18/18 06:59 06:59 06:59 Intake Total 1800 Balance 1800 Result Diagrams: 08/17/18 04:04 08/17/18 04:04 Radiology Reviewed by me: Yes Phys Exam - Physical Examination Constitutional: NAD HEENT: PERRLA, moist MMs, oral pharynx no lesions Neck: no nodes, no JVD, supple Respiratory: no wheezing, no rales, no rhonchi, clear to auscultation bilateral Cardiovascular: RRR, no significant murmur, no rub Gastrointestinal: soft, non-tender, positive bowel sounds Musculoskeletal: no edema, pulses present, edema present Neurological: non-focal, normal sensation, moves all 4 limbs Lymphatic: no nodes Psychiatric: normal affect, A&O x 3 Skin: no rash, normal turgor, cap refill <2 seconds Dx/Plan (1) Hypertension Code(s): I10 - ESSENTIAL (PRIMARY) HYPERTENSION Status: Acute (2) Malignant neoplasm of female breast Code(s): C50.919 - MALIGNANT NEOPLASM OF UNSP SITE OF UNSPECIFIED FEMALE BREAST Status: Chronic Qualifiers: Breast location: unspecified site of breast Laterality: right (3) Normocytic anemia Code(s): D64.9 - ANEMIA, UNSPECIFIED Status: Chronic (4) Acute gastroenteritis Code(s): K52.9 - NONINFECTIVE GASTROENTERITIS AND COLITIS, UNSPECIFIED Status : Resolved - Plan cont current plan of care * Continue medical management * Continue azithromycin for campylobacter, GI consulted * Started on guaifenesin and pseudophedrine for sinus congestion * Continue symptomatic management, IV fluid hydration * Continue home medications
[2018-08-17] MEDS: Dextrose 5 % And 0.9 % NaCl 1,000 ML IV SCH ×3 (15:14→23:19)
[2018-08-17] MEDS: guaiFENesin/DM ER PO SCH (21:13)
[2018-08-17] MEDS: Exemestane 25 MG TAB PO SCH (21:13)
--- NOTE | 2018-08-17 21:32 | CON ---
DATE OF CONSULTATION: 08/17/2018 This is a GI inpatient consultation note. REQUESTING PHYSICIAN: NEVA Rodriguez REASON FOR CONSULTATION: Campylobacter infection and GI bleeding. HISTORY OF PRESENT ILLNESS: Melissa Guallpa is a very pleasant 38-year-old woman with a past medical history of right-sided breast cancer. This was treated way back in 2008 with surgery, but unfortunately she has had recurrence and now has metastatic disease to the bone. She is undergoing chemotherapy and recently had radiation therapy to some pelvic metastases. She has previously seen my GI colleague, Dr. Jose Morillo, back last August. He performed an EGD, which was normal. She does have some reflux issues, generally well controlled with Nexium and sucralfate as needed. She does not have any chronic diarrhea symptoms. However, she states that over the past week, she took Augmentin for about 3 days for some ongoing upper respiratory symptoms. With this, she started to have some diarrhea and periumbilical pain. Symptoms have been going on for about a week now, slowly progressive until they got pretty severe yesterday. She had at least 20-25 bowel movements yesterday and then started to have some blood in the stool with this. This is a small amount of bright red blood with otherwise liquid urgent stool. She estimates she has had about 16 bowel movements so far today. No worsening of her periumbilical abdominal pain. Stool studies on admission are positive for Campylobacter antigen, FOBT positive, and elevated fecal lactoferrin. Labs are otherwise essentially unremarkable. She was started on oral azithromycin this morning. She denies any nausea or vomiting with this and actually is feeling a bit hungry. She is tolerating her liquid diet. REVIEW OF SYSTEMS: Full review of systems including constitutional, head, eyes, ears, nose, throat, GI, , cardiovascular, respiratory, musculoskeletal, neurologic systems is negative except as noted in the HPI. PAST MEDICAL HISTORY: 1. Breast cancer metastatic to bone status post chemotherapy, radiation and surgery. 2. Right-sided mastectomy with reconstruction. 3. Bilateral oophorectomy. 4. Normal EGD, August 2017. ALLERGIES: NO KNOWN DRUG ALLERGIES. OUTPATIENT MEDICATIONS: 1. [place]. 2. Afinitor. 3. Aromasin. 4. Nexium. 5. Sucralfate. 6. Probiotic. INPATIENT MEDICATIONS: 1. Azithromycin 500 mg p.o. daily. 2. Vitamin D3 of 5000 units daily. 3. Xanax p.r.n. 4. Vitamin C 1000 mg t.i.d. 5. Morphine p.r.n. SOCIAL HISTORY: No smoking, alcohol, or drug use. FAMILY HISTORY: Noncontributory. PHYSICAL EXAMINATION: VITAL SIGNS: Temperature 98.4, pulse 106, blood pressure 121/75, 100% oxygen saturation on room air. GENERAL: A 38-year-old woman, lying in bed comfortably, in no distress. MENTAL: Alert and fully oriented. Pleasant, conversational. Gives a detailed coherent history. SKIN: No jaundice. No rashes were palpable. EYES: No scleral icterus. Extraocular movements intact. ENT: Mucous membranes moist. No oral lesions. LYMPH: No submandibular supraclavicular lymphadenopathy. THYROID: Nontender to palpation. HEART: Regular rate and rhythm. LUNGS: Clear to auscultation bilaterally. ABDOMEN: Bowel sounds present. Soft. Tender to palpation in the periumbilical area. No guarding or rebound tenderness. No masses or organomegaly appreciated. EXTREMITIES: No peripheral edema. VESSELS: Radial pulses 2+ bilaterally. NEURO: Cranial nerves 2-12 intact bilaterally. No focal deficits. LABORATORY STUDIES: Hemoglobin 10.3, WBC 5.3, platelets 220. Sodium 141, potassium 3.8, BUN 6, creatinine 0.67. LFTs show total bilirubin 0.2, alkaline phosphatase 175, AST 40, ALT 32, albumin 4.5, calcium 8.2, lactic acid 1.7. Urinalysis negative. Stool studies show elevated fecal lactoferrin, positive FOBT, and positive Campylobacter antigen. C difficile antigen and toxin are negative. Stool culture otherwise showing normal ana. IMAGING STUDIES: She did have a fairly recent CT of the abdomen and pelvis on 07/29/2018. This demonstrated widespread osseous metastatic disease, as well as a right pleural density suspicious for metastatic disease. ASSESSMENT AND PLAN: 1. Acute Campylobacter gastroenteritis, severe. 2. Hematochezia, secondary to Campylobacter gastroenteritis. The patient's presentation does seem fairly straightforward and consistent with acute but severe Campylobacter gastroenteritis. This has a variable presentation but is often more severe in immunocompromised patients. I would advise continuing the supportive care, IV hydration. Her diet can be advanced slowly as tolerated, but I would probably stick with liquid diet at least for the rest of the day. With regard to antimicrobial therapy, I agree with azithromycin 500 mg by mouth daily. This is usually given for a 3-day course but with her immunocompromised state, consider giving for a more extended 7-day course. She is tolerating p.o. intake and so, I do think the oral azithromycin is the best option, given low expected resistance rate to this medication. If she were to become unable to tolerate p.o. intake, IV meropenem could be given but oral therapy is actually preferred. I see no indication for any endoscopic investigation at this time. Follow along clinically, expect symptoms to improve within the next couple of days. Job ID: [id number]
[2018-08-18] MEDS: Morphine 4 MG/ML VIAL SLOW IVP PRN ×3 (03:51→14:52)
[2018-08-18] MEDS: Dextrose 5 % And 0.9 % NaCl 1,000 ML IV SCH ×3 (06:01→22:00)
[2018-08-18] MEDS: HYDROcodone/Acetaminophen 10/325 mg Tablet PO PRN ×3 (06:21→21:16)
[2018-08-18] MEDS: Azithromycin 250 MG TAB PO SCH (08:25)
[2018-08-18] MEDS: guaiFENesin/DM ER PO SCH ×2 (08:25→21:00)
[2018-08-18 08:46] LABS: #Eosinphils 0.4 thou/uL (0.0-0.7); #Lymphocytes 0.7 thou/uL (1.20-3.40); #Monocytes 0.5 thou/uL (0.11-0.59); #Neutrophils 3.9 thou/uL (1.40-6.50); %Basophils 0.3 % (0.0-1.0); %Eosinophils 6.6 % (0.0-10.0); %Lymphocytes 12.5 % (21.0-51.0); %Monocytes 8.4 % (0.0-10.0); %Neutrophils 72.2 % (42.0-75.0); Hemoglobin 10.6 g/dL (12.0-16.0); Mean Corpuscular HGB CONC 31.9 g/dL (32.0-36.0); Mean Corpuscular Hemoglobin 24.5 pg (27.0-31.0); Mean Platelet Volume 9.2 fL (7.4-10.4); Platelet Count 243 thou/uL (130-400); White Blood Cell (WBC) Count 5.4 thou/uL (4.8-10.8)
[2018-08-18 08:57] LABS: Anion Gap 13 mmol/L (10-20); BUN (Urea Nitrogen) Less than 4 mg/dL (7.0-18.7); Calc. Creatinine Clearance 155 mL/min (70-130); Calcium 7.7 mg/dL (7.8-10.44); Carbon Dioxide 23 mmol/L (22-29); Chloride 106 mmol/L (98-107); Estimated GFR-MDRD Greater than 90; Glucose 90 mg/dL (70-105); Potassium 3.1 mmol/L (3.5-5.1); Sodium 139 mmol/L (136-145)
[2018-08-18] MEDS ORDERED: Potassium Chloride 20 MEQ TAB PO SCH (09:00)
[2018-08-18] MEDS: Ascorbic Acid 500 mg Chewable Tablet PO SCH ×3 (10:33→21:00)
[2018-08-18] MEDS: Loratadine 10 MG TAB PO SCH (11:18)
[2018-08-18] MEDS: Fluticasone Propionate Nasal Spray 16 gm Bottle NASAL SCH (11:28)
--- NOTE | 2018-08-18 13:15 | PDOC.PN ---
- Subjective Encounter Start Date: 08/18/18 Encounter Start Time: 13:13 Patient lying in bed with family at bedside. She reports feeling a little better today, but complains of persistent frequent stools, about 25 in the last 24 hours.She also states she is having abdominal cramping. Denies chest pain or shortness of breath. No nausea or vomiting. - Objective Resuscitation Status - Order Detail: 08/16/18 22:19 Resuscitation Status Routine Resuscitation Status: FULL: Full Resuscitation MAR Reviewed: Yes Vital Signs & Weight: Vital Signs (12 hours) Temp Pulse Resp BP Pulse Ox 08/18/18 11:53 97.8 F 99 16 127/85 98 08/18/18 08:00 98.1 F 105 H 16 125/80 99 08/18/18 04:00 99.1 F 109 H 18 105/60 95 Weight Admit Weight 177 lb Weight 177 lb I&O: 08/17/18 08/18/18 08/19/18 06:59 06:59 06:59 Intake Total 1800 3355 1001 Balance 1800 3355 1001 Result Diagrams: 08/18/18 08:33 08/18/18 08:33 Radiology Reviewed by me: Yes Phys Exam - Physical Examination Constitutional: NAD HEENT: PERRLA, moist MMs, oral pharynx no lesions Neck: no nodes, no JVD, supple Respiratory: no wheezing, no rales, no rhonchi, clear to auscultation bilateral Cardiovascular: RRR, no significant murmur, no rub Gastrointestinal: soft, no distention LUQ mildtenderness to palpation, hyperactive bowel sounds Musculoskeletal: no edema, pulses present Neurological: non-focal, normal sensation, moves all 4 limbs Lymphatic: no nodes Psychiatric: normal affect, A&O x 3 Skin: no rash, normal turgor, cap refill <2 seconds Dx/Plan (1) Hypertension Code(s): I10 - ESSENTIAL (PRIMARY) HYPERTENSION Status: Acute (2) Malignant neoplasm of female breast Code(s): C50.919 - MALIGNANT NEOPLASM OF UNSP SITE OF UNSPECIFIED FEMALE BREAST Status: Chronic Qualifiers: Breast location: unspecified site of breast Laterality: right (3) Normocytic anemia Code(s): D64.9 - ANEMIA, UNSPECIFIED Status: Chronic (4) Acute gastroenteritis Code(s): K52.9 - NONINFECTIVE GASTROENTERITIS AND COLITIS, UNSPECIFIED Status : Resolved - Plan cont current plan of care, plan discussed w/ family, continue antibiotics * GI services following * Continue antibiotics * IV fluid hydration * Advance diet as tolerated * Continue home medications
--- NOTE | 2018-08-18 18:42 | PRG ---
DATE OF SERVICE: 08/18/2018 SUBJECTIVE: The patient has continued to have diarrhea and has not slowed. Her abdominal crampy pain is about the same. She is tolerating liquids without vomiting. OBJECTIVE: VITAL SIGNS: Temperature 97.8, pulse 99, respiratory rate 16, and blood pressure 127/85. CHEST: Clear. CARDIOVASCULAR: Regular rate and rhythm. ABDOMEN: Soft and tender in the lower abdomen without rebound or guarding. LABORATORY DATA: Shows a white blood cell count of 5.4, hemoglobin 10.6, hematocrit 33.1. Chemistry shows potassium 3.1 and calcium 7.7. ASSESSMENT: 1. Campylobacter-related gastroenteritis. 2. Metastatic breast cancer. RECOMMENDATIONS: 1. Continue azithromycin. 2. Continue oral liquids. 3. No antidiarrheals. Job ID: [id number]
[2018-08-18] MEDS: Exemestane 25 MG TAB PO SCH (21:00)
[2018-08-18] MEDS: ALPRAZolam 0.5 MG TAB PO PRN (22:45)
[2018-08-19] MEDS: Morphine 4 MG/ML VIAL SLOW IVP PRN ×4 (04:18→20:38)
[2018-08-19 04:43] LABS: #Eosinphils 0.4 thou/uL (0.0-0.7); #Lymphocytes 0.6 thou/uL (1.20-3.40); #Monocytes 0.4 thou/uL (0.11-0.59); #Neutrophils 2.9 thou/uL (1.40-6.50); %Basophils 0.7 % (0.0-1.0); %Eosinophils 10.1 % (0.0-10.0); %Lymphocytes 12.8 % (21.0-51.0); %Monocytes 9.2 % (0.0-10.0); %Neutrophils 67.2 % (42.0-75.0); Hemoglobin 10.4 g/dL (12.0-16.0); Mean Corpuscular HGB CONC 31.5 g/dL (32.0-36.0); Mean Corpuscular Hemoglobin 24.3 pg (27.0-31.0); Mean Corpuscular Volume 77.1 fL (78.0-98.0); Mean Platelet Volume 9.4 fL (7.4-10.4); Platelet Count 217 thou/uL (130-400); RBC Distribution Width 15.9 % (11.5-14.5); Red Blood Cell (RBC) Count 4.29 mill/uL (4.20-5.40); White Blood Cell (WBC) Count 4.3 thou/uL (4.8-10.8)
[2018-08-19 05:04] LABS: Anion Gap 14 mmol/L (10-20); BUN (Urea Nitrogen) Less than 4 mg/dL (7.0-18.7); Calc. Creatinine Clearance 150 mL/min (70-130); Calcium 7.8 mg/dL (7.8-10.44); Carbon Dioxide 23 mmol/L (22-29); Chloride 104 mmol/L (98-107); Estimated GFR-MDRD Greater than 90; Glucose 86 mg/dL (70-105); Potassium 3.3 mmol/L (3.5-5.1); Sodium 138 mmol/L (136-145)
[2018-08-19] MEDS: Dextrose 5 % And 0.9 % NaCl 1,000 ML IV SCH ×4 (05:29→20:41)
[2018-08-19] MEDS: HYDROcodone/Acetaminophen 10/325 mg Tablet PO PRN ×2 (06:15→16:45)
[2018-08-19] MEDS: Azithromycin 250 MG TAB PO SCH (08:57)
[2018-08-19] MEDS: guaiFENesin/DM ER PO SCH ×2 (08:57→20:38)
[2018-08-19] MEDS: Loratadine 10 MG TAB PO SCH (08:57)
[2018-08-19] MEDS: Fluticasone Propionate Nasal Spray 16 gm Bottle NASAL SCH (08:58)
[2018-08-19] MEDS: Ascorbic Acid 500 mg Chewable Tablet PO SCH ×4 (09:01→21:06)
[2018-08-19] MEDS ORDERED: Potassium Chloride 20 MEQ TAB PO SCH (15:30)
--- NOTE | 2018-08-19 16:30 | PRG ---
DATE OF SERVICE: 08/19/2018 SUBJECTIVE: The patient reports the frequency of the diarrhea is slightly better and the stool is not quite as thin, but is still a thin water and there were streaks of blood. She just continuing to have the abdominal pain. OBJECTIVE: VITAL SIGNS: Temperature 98.3, pulse 112, respiratory rate 18, and blood pressure 124/77. CHEST: Clear. CARDIOVASCULAR: Regular rate and rhythm. ABDOMEN: Soft, diffusely tender without rebound or guarding. LABORATORY DATA: Shows a white blood cell count of 4.3, hemoglobin 10, hematocrit 33.1, with MCV of 77.1. Chemistries show potassium 3.3. ASSESSMENT: 1. Diarrhea-stool studies positive for Campylobacter, but I am doubtful that this is Campylobacter colitis. 2. Metastatic breast cancer. RECOMMENDATIONS: 1. Colonoscopy tomorrow with Dr. Small. 2. Una kline. Job ID: [id number]
--- NOTE | 2018-08-19 17:14 | PDOC.PN ---
- Subjective Encounter Start Date: 08/19/18 Encounter Start Time: 17:13 Patient lying in bed, she reports no improvement. Continues with frequent BMs despite appropriate treatment. GI following and plan for colonoscopy tomorrow. She denies chest pain, shortness of breath. - Objective Resuscitation Status - Order Detail: 08/16/18 22:19 Resuscitation Status Routine Resuscitation Status: FULL: Full Resuscitation MAR Reviewed: Yes Vital Signs & Weight: Vital Signs (12 hours) Temp Pulse Resp BP BP Pulse Ox 08/19/18 12:00 98.3 F 112 H 18 124/77 98 08/19/18 08:00 98.2 F 107 H 18 127/83 98 Weight Admit Weight 177 lb Weight 177 lb I&O: 08/18/18 08/19/18 08/20/18 06:59 06:59 06:59 Intake Total 3355 2201 Balance 3355 2201 Result Diagrams: 08/19/18 04:18 08/19/18 04:18 Phys Exam - Physical Examination Constitutional: NAD HEENT: PERRLA, oral pharynx no lesions Neck: no nodes, no JVD, supple Respiratory: no wheezing, no rales, no rhonchi, clear to auscultation bilateral Cardiovascular: RRR, no significant murmur, no rub Gastrointestinal: soft, no distention diffuse mild tenderness with hyperactive bowel sounds Musculoskeletal: no edema, pulses present Neurological: non-focal, normal sensation, moves all 4 limbs Lymphatic: no nodes Psychiatric: normal affect, A&O x 3 Skin: no rash, normal turgor, cap refill <2 seconds Dx/Plan (1) Hypertension Code(s): I10 - ESSENTIAL (PRIMARY) HYPERTENSION Status: Acute (2) Malignant neoplasm of female breast Code(s): C50.919 - MALIGNANT NEOPLASM OF UNSP SITE OF UNSPECIFIED FEMALE BREAST Status: Chronic Qualifiers: Breast location: unspecified site of breast Laterality: right (3) Normocytic anemia Code(s): D64.9 - ANEMIA, UNSPECIFIED Status: Chronic (4) Acute gastroenteritis Code(s): K52.9 - NONINFECTIVE GASTROENTERITIS AND COLITIS, UNSPECIFIED Status : Resolved (5) Hypokalemia Code(s): E87.6 - HYPOKALEMIA Status: Acute - Plan cont current plan of care, plan discussed w/ family, continue antibiotics * Continue azithromycin * GI services following, plan for colonoscopy tomorrow * Add probiotic, replace potassium * Continue home medications * Await further recommendations and management pending colonoscopy * recheck cbc, bmp in am
[2018-08-19] MEDS ORDERED: GoLYTELY 4,000 ml Bottle PO SCH (18:00)
[2018-08-19] MEDS: Exemestane 25 MG TAB PO SCH ×2 (20:38→21:05)
[2018-08-20] MEDS: Dextrose 5 % And 0.9 % NaCl 1,000 ML IV SCH ×2 (04:43→13:42)
[2018-08-20] MEDS: Morphine 4 MG/ML VIAL SLOW IVP PRN ×4 (05:39→21:41)
--- NOTE | 2018-08-20 11:55 | PDOC.PN ---
- Subjective Encounter Start Date: 08/20/18 Encounter Start Time: 11:53 Subjective: post GI prep, still has abd discomfort, rectal urgency - Objective Resuscitation Status - Order Detail: 08/16/18 22:19 Resuscitation Status Routine Resuscitation Status: FULL: Full Resuscitation MAR Reviewed: Yes Vital Signs & Weight: Vital Signs (12 hours) Temp Pulse Resp BP Pulse Ox 08/20/18 08:00 99.0 F 105 H 16 119/80 98 08/20/18 04:00 98.5 F 109 H 16 125/74 99 Weight Admit Weight 177 lb Weight 177 lb I&O: 08/19/18 08/20/18 08/21/18 06:59 06:59 06:59 Intake Total 2201 4687 Balance 2201 4687 Result Diagrams: 08/19/18 04:18 08/19/18 04:18 Phys Exam - Physical Examination Neck: no JVD Respiratory: clear to auscultation bilateral Cardiovascular: RRR, no significant murmur Gastrointestinal: positive bowel sounds diffuse nild tenderness Musculoskeletal: no edema Dx/Plan (1) Hypertension Code(s): I10 - ESSENTIAL (PRIMARY) HYPERTENSION Status: Acute Qualifiers: Hypertension type: essential hypertension Qualified Code(s): I10 - Essential (primary) hypertension (2) Abdominal pain Code(s): R10.9 - UNSPECIFIED ABDOMINAL PAIN Status: Acute Qualifiers: Abdominal location: generalized Qualified Code(s): R10.84 - Generalized abdominal pain (3) Stage IV carcinoma of breast Code(s): C50.919 - MALIGNANT NEOPLASM OF UNSP SITE OF UNSPECIFIED FEMALE BREAST Status: Chronic (4) Intestinal infection due to bacteria causing bloody diarrhea Code(s): A04.9 - BACTERIAL INTESTINAL INFECTION, UNSPECIFIED Status: Acute - Plan colonoscopy today -: no specific dx at colonoscopy- Bx pending -: cont antibx, fluids , etc * .
[2018-08-20] MEDS: Ascorbic Acid 500 mg Chewable Tablet PO SCH ×3 (14:41→21:38)
[2018-08-20] MEDS ORDERED: PROPOFOL 200 MG/20 ML VIAL ONE (15:31)
[2018-08-20] MEDS: Loperamide HCl 2 MG CAP PO PRN ×2 (15:49→20:49)
[2018-08-20] MEDS: HYDROcodone/Acetaminophen 10/325 mg Tablet PO PRN (15:49)
[2018-08-20] MEDS: Azithromycin 250 MG TAB PO SCH (15:49)
--- NOTE | 2018-08-20 17:04 | OP ---
DATE OF PROCEDURE: 08/20/2018 GI ENDOSCOPY NOTE [employer]IC SURGEON: None. PROCEDURE PERFORMED: Colonoscopy with biopsies. INDICATION: Diarrhea. MEDICATIONS: See Anesthesia record. FINDINGS: After discussion of the risks, benefits, and alternatives of the procedure, informed consent was obtained and witnessed. Pre-endoscopic cardiopulmonary examination was satisfactory. Time-out was performed before sedation was achieved. Sedation was achieved with Anesthesia assistance in the endoscopy unit. Digital rectal exam was performed, which was unremarkable. A Pentax adult colonoscope was inserted into the anus and passed forward to the cecum in the usual fashion. The cecal base was identified by the appendiceal orifice as well as the ileocecal valve. The terminal ileum was intubated only the very distal ileal mucosa could be examined with the ileal mucosa appeared normal. The colonoscope was then slowly withdrawn in a gradual and circumferential manner with careful examination of the entire colonic mucosa. The quality of the prep was good. In the ascending colon in the region of the ileocecal valve, there was a patchy area of moderate colitis with a few small erosions. Biopsies were obtained from this area for histology. The remainder of the ascending colon, the transverse colon, and the descending colon all appeared normal endoscopically. There were no polyps or mass lesions visualized in the sigmoid colon for at 20 cm segment from 10 to 30 cm from the anal verge, there is severe confluent colitis characterized by erythema, friability, some colonic narrowing, and erosions. The margins of the affected area are not sharply demarcated. The distal 5 to 10 cm of rectum are spared. I obtained biopsies from the sigmoid colon, from the patchy area of colitis in the ascending colon, and also from normal-appearing mucosa in the descending colon, for histology. Overall, appearance is suggestive of possible radiation colitis. Retroflexion in the rectum demonstrated no other significant abnormalities. The colonoscope was completely withdrawn and the patient allowed to recover. The patient tolerated the procedure well. There were no immediate postprocedure complications. IMPRESSION: 1. Severe confluent colitis in the sigmoid colon from 10 to 30 cm from the anal verge, possibly representing radiation colitis. Biopsies obtained. 2. Patch of moderate colitis in the ascending colon near the ileocecal valve, biopsied. 3. Otherwise, normal colonoscopy, with biopsies obtained from normal-appearing mucosa in the descending colon. RECOMMENDATIONS: 1. Follow up pathology and colon biopsies. 2. I would still continue the azithromycin for 1 week course. This is looking less like Campylobacter mediated colitis, given the patchy distribution and most of the colon lining appearing normal. 3. Mesalamine enemas twice daily. 4. We can start her on Imodium as needed. Please call anytime with questions or concerns. Job ID: [id number]
[2018-08-20] MEDS: Loratadine 10 MG TAB PO SCH (17:06)
[2018-08-20] MEDS: Fluticasone Propionate Nasal Spray 16 gm Bottle NASAL SCH (17:06)
[2018-08-20] MEDS: guaiFENesin/DM ER PO SCH ×2 (17:06→21:42)
[2018-08-20] MEDS: Saccharomyces boulardii 250 MG CAP PO SCH (17:07)
[2018-08-20] MEDS: Calcium Carbonate 500 MG ChewTAB PO PRN (20:48)
[2018-08-20] MEDS: Exemestane 25 MG TAB PO SCH (21:37)
[2018-08-20] MEDS: ALPRAZolam 0.5 MG TAB PO PRN (22:44)
[2018-08-21] MEDS: Morphine 4 MG/ML VIAL SLOW IVP PRN ×4 (02:29→15:41)
[2018-08-21] MEDS: HYDROcodone/Acetaminophen 10/325 mg Tablet PO PRN ×4 (04:26→19:13)
[2018-08-21] MEDS: Ascorbic Acid 500 mg Chewable Tablet PO SCH ×3 (08:40→20:38)
[2018-08-21] MEDS: Loperamide HCl 2 MG CAP PO PRN ×2 (08:41→17:48)
[2018-08-21] MEDS: Azithromycin 250 MG TAB PO SCH (08:44)
[2018-08-21] MEDS: guaiFENesin/DM ER PO SCH ×2 (08:45→20:37)
[2018-08-21] MEDS: Loratadine 10 MG TAB PO SCH (08:45)
[2018-08-21] MEDS: Fluticasone Propionate Nasal Spray 16 gm Bottle NASAL SCH (08:45)
[2018-08-21] MEDS: Saccharomyces boulardii 250 MG CAP PO SCH (08:46)
[2018-08-21] MEDS: Dextrose 5 % And 0.9 % NaCl 1,000 ML IV SCH (09:54)
--- NOTE | 2018-08-21 10:03 | PDOC.PN ---
- Subjective Encounter Start Date: 08/21/18 Encounter Start Time: 10:01 Subjective: decreased pain, diarrhea - Objective Resuscitation Status - Order Detail: 08/16/18 22:19 Resuscitation Status Routine Resuscitation Status: FULL: Full Resuscitation MAR Reviewed: Yes Vital Signs & Weight: Vital Signs (12 hours) Temp Pulse Resp BP Pulse Ox 08/21/18 07:51 98.2 F 108 H 16 121/82 99 08/21/18 03:43 98.5 F 107 H 16 123/68 100 Weight Admit Weight 177 lb Weight 177 lb I&O: 08/20/18 08/21/18 08/22/18 06:59 06:59 06:59 Intake Total 4687 2250 Balance 4687 2250 Result Diagrams: 08/19/18 04:18 08/19/18 04:18 Phys Exam - Physical Examination Neck: no JVD Respiratory: clear to auscultation bilateral Cardiovascular: RRR, no significant murmur Gastrointestinal: soft, positive bowel sounds Musculoskeletal: no edema Dx/Plan (1) Hypertension Code(s): I10 - ESSENTIAL (PRIMARY) HYPERTENSION Status: Acute Qualifiers: Hypertension type: essential hypertension Qualified Code(s): I10 - Essential (primary) hypertension (2) Abdominal pain Code(s): R10.9 - UNSPECIFIED ABDOMINAL PAIN Status: Acute Qualifiers: Abdominal location: generalized Qualified Code(s): R10.84 - Generalized abdominal pain (3) Stage IV carcinoma of breast Code(s): C50.919 - MALIGNANT NEOPLASM OF UNSP SITE OF UNSPECIFIED FEMALE BREAST Status: Chronic (4) Intestinal infection due to bacteria causing bloody diarrhea Code(s): A04.9 - BACTERIAL INTESTINAL INFECTION, UNSPECIFIED Status: Acute (5) Colitis due to radiation Code(s): K52.0 - GASTROENTERITIS AND COLITIS DUE TO RADIATION Status: Acute - Plan DC iv fluids -: mesalamine enema -: cont 7 d course zithromax -: discuss DC plan with GI * .
--- NOTE | 2018-08-21 16:01 | PRG ---
DATE OF SERVICE: 08/21/2018 This is a GI inpatient daily progress note. SUBJECTIVE: The patient is feeling a bit better today. Her abdominal discomfort still persists as well as stool urgency, but she does feel the diarrhea is slowing down. She has been able to tolerate a little bit of lunch today, but thinks she might have eaten it too fast. She was able to hold in the mesalamine enema for 4 hours. Pathology is still not back on the colon biopsies. OBJECTIVE: VITAL SIGNS: Temperature 98.4, pulse 98, blood pressure 105/71, and 97% oxygen saturation on room air. GENERAL: No acute distress. HEART: Regular rate and rhythm. LUNGS: Clear to auscultation bilaterally. ABDOMEN: Bowel sounds present. Soft. Some tenderness to palpation in the lower abdomen, both lower quadrants, but no guarding or rebound tenderness. EXTREMITIES: No peripheral edema. ASSESSMENT AND PLAN: 1. Sigmoid colitis, severe, likely secondary to recent pelvic radiation. 2. Abdominal pain, secondary to colitis. 3. Diarrhea, secondary to colitis. She has had a bit of improvement now on the mesalamine enemas and Imodium. I would recommend she continue to take the Imodium up to 3 or 4 times a day as needed. Continue the mesalamine enemas for at least the next 2 weeks, possibly longer, depending on how she does. She can follow up with Dr. Morillo on an outpatient basis. I think that if her diarrhea continues to improve and was felt to be manageable and she is tolerating her diet tomorrow, she could potentially be discharged home from the hospital, to follow up with Dr. Morillo on an outpatient basis. I would continue the azithromycin, just finish out a 7-day course of this. Please call anytime with questions or concerns. Job ID: [id number]
[2018-08-21] MEDS: Exemestane 25 MG TAB PO SCH (20:37)
[2018-08-22] MEDS: Morphine 4 MG/ML VIAL SLOW IVP PRN ×2 (02:05→08:41)
[2018-08-22] MEDS: HYDROcodone/Acetaminophen 10/325 mg Tablet PO PRN ×3 (03:15→16:55)
[2018-08-22] MEDS: Azithromycin 250 MG TAB PO SCH (08:41)
[2018-08-22] MEDS: Saccharomyces boulardii 250 MG CAP PO SCH (08:41)
[2018-08-22] MEDS: Ascorbic Acid 500 mg Chewable Tablet PO SCH ×3 (08:42→19:42)
[2018-08-22] MEDS: guaiFENesin/DM ER PO SCH ×2 (08:46→19:42)
[2018-08-22] MEDS: Fluticasone Propionate Nasal Spray 16 gm Bottle NASAL SCH (08:46)
[2018-08-22] MEDS: Loratadine 10 MG TAB PO SCH (08:49)
[2018-08-22 09:19] LABS: #Eosinphils 0.6 thou/uL (0.0-0.7); #Lymphocytes 0.7 thou/uL (1.20-3.40); #Monocytes 0.5 thou/uL (0.11-0.59); #Neutrophils 3.4 thou/uL (1.40-6.50); %Basophils 0.5 % (0.0-1.0); %Eosinophils 11.4 % (0.0-10.0); %Lymphocytes 14.1 % (21.0-51.0); Hemoglobin 10.4 g/dL (12.0-16.0); Mean Corpuscular HGB CONC 31.5 g/dL (32.0-36.0); Mean Corpuscular Hemoglobin 24.1 pg (27.0-31.0); Mean Corpuscular Volume 76.4 fL (78.0-98.0); Mean Platelet Volume 8.6 fL (7.4-10.4); Platelet Count 276 thou/uL (130-400); RBC Distribution Width 16.2 % (11.5-14.5); Red Blood Cell (RBC) Count 4.31 mill/uL (4.20-5.40); White Blood Cell (WBC) Count 5.2 thou/uL (4.8-10.8)
[2018-08-22] MEDS ORDERED: Lidocaine 5% Patch TD SCH ×2 (09:23→10:00)
--- NOTE | 2018-08-22 09:26 | PDOC.PN ---
- Subjective Encounter Start Date: 08/22/18 (f/u radiation proctitis) Encounter Start Time: 09:24 Subjective: Pt c/o neck/back/shoulder pain developing yesterday, worse after flexeril -: denies n/v. Reports 4 bm's over thepast 7 hours still containing blood -: also thinks her temp has gone up some today to 99.5 - Objective Resuscitation Status - Order Detail: 08/16/18 22:19 Resuscitation Status Routine Resuscitation Status: FULL: Full Resuscitation Vital Signs & Weight: Vital Signs (12 hours) Temp Pulse Resp BP Pulse Ox 08/22/18 08:00 99.5 F 113 H 18 123/84 100 Weight Admit Weight 177 lb Weight 177 lb I&O: 08/21/18 08/22/18 08/23/18 06:59 06:59 06:59 Intake Total 3575 Balance 3575 Result Diagrams: 08/22/18 09:08 08/22/18 09:08 Phys Exam - Physical Examination Constitutional: NAD ttp along the left trapezius/paracervical muscles and shoulders withou palpable abnormality Respiratory: no wheezing, no rales, no rhonchi, clear to auscultation bilateral Cardiovascular: RRR, no significant murmur Gastrointestinal: soft, non-tender Musculoskeletal: no edema Neurological: non-focal, moves all 4 limbs Psychiatric: normal affect Dx/Plan (1) Colitis due to radiation Code(s): K52.0 - GASTROENTERITIS AND COLITIS DUE TO RADIATION Status: Acute (2) Neck pain Code(s): M54.2 - CERVICALGIA Status: Acute (3) Stage IV carcinoma of breast Code(s): C50.919 - MALIGNANT NEOPLASM OF UNSP SITE OF UNSPECIFIED FEMALE BREAST Status: Chronic (4) Acute gastroenteritis Code(s): K52.9 - NONINFECTIVE GASTROENTERITIS AND COLITIS, UNSPECIFIED Status : Resolved (5) Anemia Code(s): D64.9 - ANEMIA, UNSPECIFIED Status: Chronic - Plan * Neck and back pain c/w MS etiology - discussed tx with topical lidocaine patches 12 hours on then 12 hours off/ * trial of tizanidine instead of flexeril * physical therapy eval/tx * hold on anti-inflammatory due to bloody diarrhea * check labs today - anemia stable. Awaiting electrolytes * continue home meds * continue regular diet * anticipate home when the diarrhea is manageable and as long as electrolytes stable * * dvt prophy - scd's * gi prophy - not indicated. * code status full * * pt remains at high risk in current condition * reviewed plan of care with patient, no question or further needs at end of eval
[2018-08-22 09:44] LABS: ALT (SGPT) 34 U/L (8-55); AST (SGOT) 43 U/L (5-34); Albumin 3.9 g/dL (3.5-5.0); Alkaline Phosphatase 149 U/L (40-150); Anion Gap 15 mmol/L (10-20); BUN (Urea Nitrogen) Less than 4 mg/dL (7.0-18.7); Bilirubin, Total 0.3 mg/dL (0.2-1.2); Calc. Creatinine Clearance 138 mL/min (70-130); Carbon Dioxide 23 mmol/L (22-29); Chloride 102 mmol/L (98-107); Estimated GFR-MDRD Greater than 90; Globulin 3.1 g/dL (2.4-3.5); Glucose 70 mg/dL (70-105); Magnesium 1.8 mg/dL (1.6-2.6); Phosphorus 2.1 mg/dL (2.3-4.7); Potassium 3.2 mmol/L (3.5-5.1); Sodium 137 mmol/L (136-145)
[2018-08-22] MEDS ORDERED: Potassium Chloride 20 MEQ TAB PO SCH ×2 (10:30→17:00)
[2018-08-22] MEDS: tiZANidine HCl 4 MG TAB PO PRN (14:59)
--- NOTE | 2018-08-22 15:20 | PRG ---
DATE OF SERVICE: 08/22/2018 SUBJECTIVE: The patient states that her diarrhea seems to be improving a little bit. There is still blood in the stool, but in smaller volume. She does continue to have lower abdominal discomfort. She is tolerating regular diet. Her appetite is not that great. Her primary complaint has been neck and shoulder pain over the past day. OBJECTIVE: VITAL SIGNS: Temperature 99.5, pulse 113, blood pressure 123/84, 100% oxygen saturation on room air. GENERAL: No acute distress. HEART: Regular rate and rhythm. LUNGS: Clear to auscultation bilaterally. ABDOMEN: Bowel sounds present. Soft. Tender to palpation in the lower abdomen. No guarding or rebound tenderness. EXTREMITIES: No peripheral edema. LABORATORY STUDIES: WBC 5.4, hemoglobin 10.4, platelets 276. Sodium 137, potassium 3.2, BUN less than 4, creatinine 0.71, total bilirubin 0.3, alkaline phosphatase 149, AST 43, ALT 34. Pathology on colon biopsies came back showing ischemic pattern injury, which is indeed consistent with radiation colitis. ASSESSMENT AND PLAN: 1. Radiation colitis, affecting sigmoid colon and ascending colon. 2. Lower abdominal pain, secondary to radiation colitis. 3. Hematochezia, secondary to radiation colitis. The colon biopsies confirmed ischemic pattern injury, which is indeed consistent with radiation colitis. She may have further affected areas of radiation enteritis involving small bowel that we cannot reach with the scope, it is hard to know. Discussed that radiation injury can take several weeks to slowly improve. I would continue with mesalamine enemas twice daily, continue Imodium as needed. Diet, as tolerated. No further recommendations from a GI standpoint. Please call back anytime with questions or concerns. Job ID: [id number]
--- NOTE | 2018-08-22 17:01 | PDOC.EVN ---
Event Note - Event Note Event Note: Called about pain not significantly changed despite topical patch and tizanidine , also temp noted to be 99.9 which is unusual for patient. Pt denies any cough/ n/v/abd pain. BM's most recently without blood. Will try low dose toradol to see if this helps with pain and order CXR given increasing temp. It temp continues to increase, will need blood and urine cx as well to monitor for infection. Reviewed plan of care with patient and brother, no questions or further needs at end of eval.
[2018-08-22] MEDS: Exemestane 25 MG TAB PO SCH (19:42)
[2018-08-22] MEDS: Calcium Carbonate 500 MG ChewTAB PO PRN (19:44)
[2018-08-22] MEDS: Methyl Salicylate/Menthol 85 GM TUBE TOP PRN (19:46)
--- NOTE | 2018-08-22 19:56 | RAD ---
RADIOGRAPH CHEST 2 VIEWS Date: 08/22/18 Time: 5:24 p.m. HISTORY: 38-year-old female with metastatic breast cancer experiencing mid back pain and fever. COMPARISON: 12/06/17 FINDINGS: The left sided implantable vascular access port has been removed. Lung volumes are lower on the curre nt study compared to the previous. Projecting inferior to the right hemidiaphragm, there is a region of increased density and irregular margins, elongated in the craniocaudal dimension, projecting over the right paraspinal location on the frontal view, at the T10 through T12 levels. This is larger than it was previously (previously was inconspicuous). Exact location is uncertain, but this is either in a paraspinal space or right lower pleural space. The visualized lung parks are clear on the frontal view. No cardiomegaly. No pulmonary edema. No pneumothorax. No pleural effusions. IMPRESSION: 1. Region of high density has increased in size in a right paraspinal location at the level of t he lower thoracic spine. Exact location and etiology are uncertain. 2. No definite evidence of acute pneumonia. 3. However, given the history of fever, short interval followup is recommended. 4. Status post right lumpectomy and right axillary lymph node dissection. [place] [] POS: [facility]
[2018-08-22] MEDS: Ketorolac Tromethamine 30 MG/ML VIAL IVP PRN (20:28)
[2018-08-22] MEDS: REMOVE LIDOCAINE FS SCH (21:29)
[2018-08-22] MEDS: ALPRAZolam 0.5 MG TAB PO PRN (21:31)
[2018-08-23] MEDS: HYDROcodone/Acetaminophen 10/325 mg Tablet PO PRN ×4 (04:33→20:28)
[2018-08-23] MEDS: guaiFENesin/DM ER PO SCH ×2 (08:54→20:30)
[2018-08-23] MEDS: Loratadine 10 MG TAB PO SCH (08:55)
[2018-08-23] MEDS: Azithromycin 250 MG TAB PO SCH (08:55)
[2018-08-23] MEDS: Ascorbic Acid 500 mg Chewable Tablet PO SCH ×3 (08:55→20:30)
[2018-08-23] MEDS: Saccharomyces boulardii 250 MG CAP PO SCH (08:55)
[2018-08-23] MEDS: Fluticasone Propionate Nasal Spray 16 gm Bottle NASAL SCH (08:57)
[2018-08-23] MEDS: Methyl Salicylate/Menthol 85 GM TUBE TOP PRN (08:58)
[2018-08-23] MEDS: Lidocaine 5% Patch TD SCH (11:03)
[2018-08-23] MEDS: Morphine 4 MG/ML VIAL SLOW IVP PRN (11:04)
--- NOTE | 2018-08-23 14:01 | PRG ---
DATE OF SERVICE: 08/23/2018 SUBJECTIVE: The patient states her diarrhea seems to be improving. The blood in the stool has resolved. She is able to tolerate and retain her mesalamine enemas for several hours at a time. She is tolerating her regular diet. The lower abdominal discomfort persists, but has improved a bit. Her neck pain has been increasing. OBJECTIVE: VITAL SIGNS: Temperature 98.1, pulse 105, blood pressure 117/77, and 95% oxygen saturation on room air. GENERAL: No acute distress. HEART: Regular rate and rhythm. LUNGS: Clear to auscultation bilaterally. ABDOMEN: Bowel sounds present. Soft. Tender to palpation in lower abdomen, but no guarding, rebound, or tenderness. EXTREMITIES: No peripheral edema. PATHOLOGY RESULTS: Pathology came back on the colon biopsies. The affected areas came back as ischemic pattern injury, which is consistent with radiation colitis. ASSESSMENT AND PLAN: 1. Radiation colitis, affecting sigmoid colon and ascending colon, possibly also affecting areas of small bowel. Unable to be reached endoscopically. 2. Hematochezia, secondary to radiation colitis, improving. The patient is improving from a GI standpoint. Continue with the mesalamine enemas twice daily. Again, this can often take several weeks to resolve. Continue Imodium as needed. Continue with diet as tolerated. No further recommendations from a GI standpoint. GI will sign off at this time, but please call back anytime with questions or concerns. Job ID: [id number]
--- NOTE | 2018-08-23 14:33 | PDOC.PN ---
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 Feels -: better overall and less frequent stools. Appetite improved. Ambulated in -: halls. - Objective Resuscitation Status - Order Detail: 08/16/18 22:19 Resuscitation Status Routine Resuscitation Status: FULL: Full Resuscitation MAR Reviewed: Yes Vital Signs & Weight: Vital Signs (12 hours) Temp Pulse Resp BP Pulse Ox 08/23/18 08:00 95 08/23/18 07:55 98.1 F 105 H 18 117/77 95 08/23/18 04:00 99.5 F 113 H 12 130/84 96 Weight Admit Weight 177 lb Weight 177 lb I&O: 08/22/18 08/23/18 08/24/18 06:59 06:59 06:59 Intake Total 3575 1760.5 Balance 3575 1760.5 Result Diagrams: 08/22/18 09:08 08/22/18 09:08 Additional Labs: Microbiology 08/16/18 17:53 Stool - Pending Stool Occult Blood ([facility]) - Final 08/16/18 17:53 Stool - Pending Stool Lactoferrin - Final 08/16/18 17:53 Stool - Pending Stool Culture - Final 08/16/18 17:53 Stool - Pending Escherichia coli 0157 Culture - Final 08/16/18 17:53 Stool - Pending Campylobacter Antigen Assay - Final 08/16/18 17:53 Stool - Pending Shiga Toxin Test - Final 08/16/18 17:53 Stool - Pending C. difficile GDH Antigen & Toxins - Final Laboratory Tests 08/18/18 08/19/18 08:33 04:18 Potassium 3.1 L 3.3 L Radiology Reviewed by me: Yes (PCXR - no acute infiltrates, increased density in R thoracic/paraspinal) Phys Exam - Physical Examination Constitutional: NAD HEENT: PERRLA, sclera anicteric, oral pharynx no lesions Neck: no nodes, no JVD, supple, full ROM Respiratory: no wheezing, no rales, no rhonchi, clear to auscultation bilateral S1, S2 Cardiovascular: RRR, no significant murmur, no rub, gallop Gastrointestinal: soft, non-tender, no distention, positive bowel sounds Musculoskeletal: no edema, pulses present Neurological: normal sensation, moves all 4 limbs Psychiatric: A&O x 3 Skin: normal turgor, cap refill <2 seconds Dx/Plan (1) Colitis due to radiation Code(s): K52.0 - GASTROENTERITIS AND COLITIS DUE TO RADIATION Status: Acute Comment: Improved, continue Mesalamine enemas, supportive mgmt (2) Hypokalemia Code(s): E87.6 - HYPOKALEMIA Status: Acute Comment: KCL supplementation, serial K+ monitoring (3) Neck pain Code(s): M54.2 - CERVICALGIA Status: Acute Comment: Appears to be musculoskeletal origin, topical Lidocaine, Tizanidine, [place] (4) Bone metastases Code(s): C79.51 - SECONDARY MALIGNANT NEOPLASM OF BONE Status: Chronic Comment: s/p chemo/XRT (5) Malignant neoplasm of female breast Code(s): C50.919 - MALIGNANT NEOPLASM OF UNSP SITE OF UNSPECIFIED FEMALE BREAST Status: Chronic Qualifiers: Breast location: unspecified site of breast Laterality: right Comment: Supportive mgmt, pain control, Oncology follow up as outpt - Plan PT/OT, out of bed/ambulate, DVT proph w/SCDs Stable currently -: Continue Mesalamine enemas -: ADAT -: OOB/ambulate -: Continue Lidocaine Patch, Tizanidine, Toradol and [place] * Likely home in 24h
[2018-08-23] MEDS: Ketorolac Tromethamine 30 MG/ML VIAL IVP PRN (16:50)
[2018-08-23] MEDS: Exemestane 25 MG TAB PO SCH (20:30)
[2018-08-23] MEDS: REMOVE LIDOCAINE FS SCH (20:30)
[2018-08-24] MEDS: HYDROcodone/Acetaminophen 10/325 mg Tablet PO PRN ×3 (03:45→20:11)
[2018-08-24] MEDS: Calcium Carbonate 500 MG ChewTAB PO PRN ×2 (07:20→16:41)
[2018-08-24] MEDS: Saccharomyces boulardii 250 MG CAP PO SCH (07:21)
[2018-08-24] MEDS: Loratadine 10 MG TAB PO SCH (07:21)
[2018-08-24] MEDS: guaiFENesin/DM ER PO SCH ×2 (07:52→20:17)
[2018-08-24] MEDS: Ascorbic Acid 500 mg Chewable Tablet PO SCH ×3 (07:52→20:16)
[2018-08-24] MEDS: Morphine 4 MG/ML VIAL SLOW IVP PRN ×2 (08:44→18:17)
[2018-08-24] MEDS: Fluticasone Propionate Nasal Spray 16 gm Bottle NASAL SCH (08:49)
[2018-08-24] MEDS: Methyl Salicylate/Menthol 85 GM TUBE TOP PRN (08:49)
[2018-08-24] MEDS: Lidocaine 5% Patch TD SCH (08:52)
[2018-08-24] MEDS: tiZANidine HCl 4 MG TAB PO PRN (09:51)
[2018-08-24] MEDS: Acetaminophen 325 MG TAB PO PRN ×3 (09:51→21:56)
[2018-08-24] MEDS ORDERED: Oseltamivir 75 MG CAP PO SCH (12:45)
--- NOTE | 2018-08-24 13:46 | PDOC.PN ---
- Subjective Encounter Start Date: 08/24/18 Encounter Start Time: 13:40 Subjective: c/o body aches and fever with nasal swab + Influenza B. Diarrhea resolving. -: No N/V. - Objective Resuscitation Status - Order Detail: 08/16/18 22:19 Resuscitation Status Routine Resuscitation Status: FULL: Full Resuscitation MAR Reviewed: Yes Vital Signs & Weight: Vital Signs (12 hours) Temp Pulse Resp BP BP Pulse Ox 08/24/18 13:00 98.8 F 114 H 18 117/72 100 08/24/18 09:54 100.1 F H 08/24/18 08:00 98.9 F 114 H 16 125/85 96 Weight Admit Weight 177 lb Weight 177 lb I&O: 08/23/18 08/24/18 08/25/18 06:59 06:59 06:59 Intake Total 1760.5 1000 Balance 1760.5 1000 Result Diagrams: 08/22/18 09:08 08/22/18 09:08 Additional Labs: Microbiology 08/24/18 10:20 Nasopharyngeal swab Influenza Types A,B Direct EIA - Final 08/16/18 17:53 Stool - Pending Stool Occult Blood (SHANTELLE) - Final 08/16/18 17:53 Stool - Pending Stool Lactoferrin - Final 08/16/18 17:53 Stool - Pending Stool Culture - Final 08/16/18 17:53 Stool - Pending Escherichia coli 0157 Culture - Final 08/16/18 17:53 Stool - Pending Campylobacter Antigen Assay - Final 08/16/18 17:53 Stool - Pending Shiga Toxin Test - Final 08/16/18 17:53 Stool - Pending C. difficile GDH Antigen & Toxins - Final Laboratory Tests 08/18/18 08/19/18 08:33 04:18 Potassium 3.1 L 3.3 L Phys Exam - Physical Examination Constitutional: NAD HEENT: PERRLA, sclera anicteric, oral pharynx no lesions Neck: no nodes, no JVD, supple, full ROM Respiratory: no wheezing, no rales, no rhonchi, clear to auscultation bilateral S1, S2 Cardiovascular: RRR, no significant murmur, no rub, gallop Gastrointestinal: soft, non-tender, no distention, positive bowel sounds Musculoskeletal: no edema, pulses present Neurological: normal sensation, moves all 4 limbs Psychiatric: A&O x 3 Skin: normal turgor, cap refill <2 seconds Dx/Plan (1) Influenza B Code(s): J10.1 - FLU DUE TO OTH IDENT INFLUENZA VIRUS W OTH RESP MANIFEST Status: Acute Comment: Start Tamiflu 75mg BID, contact/respiratory precautions (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 - GASTROENTERITIS AND COLITIS DUE TO RADIATION Status: Acute Comment: Improved, continue Mesalamine enemas, supportive mgmt (3) Hypokalemia Code(s): E87.6 - HYPOKALEMIA Status: Acute Comment: KCL supplementation, serial K+ monitoring (4) Neck pain Code(s): M54.2 - CERVICALGIA Status: Acute Comment: Likely myalgia due to Influenza B, topical Lidocaine, Tizanidine, [place] (5) Bone metastases Code(s): C79.51 - SECONDARY MALIGNANT NEOPLASM OF BONE Status: Chronic Comment: s/p chemo/XRT (6) Malignant neoplasm of female breast Code(s): C50.919 - MALIGNANT NEOPLASM OF UNSP SITE OF UNSPECIFIED FEMALE BREAST Status: Chronic Qualifiers: Breast location: unspecified site of breast Laterality: right Comment: Supportive mgmt, pain control, Oncology follow up as outpt - Plan continue antibiotics, out of bed/ambulate, DVT proph w/SCDs Stable overall -: Continue Mesalamine -: ADAT -: Start Tamiflu 75mg BID -: Transfer to medical floor * Likely home in 24h
[2018-08-24] MEDS: Morphine IR 10 MG/5 ML UDCUP PO PRN (19:22)
[2018-08-24] MEDS: Oseltamivir 75 MG CAP PO SCH (20:09)
[2018-08-24] MEDS: Simethicone Chewable 80 MG TAB PO PRN (20:09)
[2018-08-24] MEDS: Exemestane 25 MG TAB PO SCH (20:16)
[2018-08-24] MEDS: REMOVE LIDOCAINE FS SCH (20:20)
[2018-08-24] MEDS: ALPRAZolam 0.5 MG TAB PO PRN (21:56)
[2018-08-25] MEDS: HYDROcodone/Acetaminophen 10/325 mg Tablet PO PRN ×4 (04:04→21:21)
[2018-08-25] MEDS: Fluticasone Propionate Nasal Spray 16 gm Bottle NASAL SCH (09:03)
[2018-08-25] MEDS: guaiFENesin/DM ER PO SCH ×2 (09:04→20:54)
[2018-08-25] MEDS: Ascorbic Acid 500 mg Chewable Tablet PO SCH ×3 (09:05→20:54)
[2018-08-25] MEDS: Saccharomyces boulardii 250 MG CAP PO SCH (09:05)
[2018-08-25] MEDS: Oseltamivir 75 MG CAP PO SCH ×2 (09:05→20:54)
[2018-08-25] MEDS: Loratadine 10 MG TAB PO SCH (09:05)
[2018-08-25] MEDS: Lidocaine 5% Patch TD SCH (09:06)
[2018-08-25] MEDS: Acetaminophen 325 MG TAB PO PRN ×3 (09:11→21:04)
--- NOTE | 2018-08-25 09:48 | PDOC.PN ---
- Subjective Encounter Start Date: 08/25/18 Encounter Start Time: 09:40 Subjective: f/u for influenza B on current Tamiflu receiving 3 doses to date. -: Still with bodyaches and low-grade fever. No diarrhea. - Objective Resuscitation Status - Order Detail: 08/16/18 22:19 Resuscitation Status Routine Resuscitation Status: FULL: Full Resuscitation MAR Reviewed: Yes Vital Signs & Weight: Vital Signs (12 hours) Temp Pulse Resp BP BP Pulse Ox 08/25/18 08:00 99.1 F 98 20 116/76 94 L 08/25/18 04:07 98.3 F 85 18 120/80 95 08/24/18 22:30 98.9 F Weight Admit Weight 177 lb Weight 177 lb I&O: 08/24/18 08/25/18 08/26/18 06:59 06:59 06:59 Intake Total 1000 400 Balance 1000 400 Result Diagrams: 08/22/18 09:08 08/22/18 09:08 Additional Labs: Microbiology 08/24/18 10:20 Nasopharyngeal swab Influenza Types A,B Direct EIA - Final 08/16/18 17:53 Stool - Pending Stool Occult Blood (SHANTELLE) - Final 08/16/18 17:53 Stool - Pending Stool Lactoferrin - Final 08/16/18 17:53 Stool - Pending Stool Culture - Final 08/16/18 17:53 Stool - Pending Escherichia coli 0157 Culture - Final 08/16/18 17:53 Stool - Pending Campylobacter Antigen Assay - Final 08/16/18 17:53 Stool - Pending Shiga Toxin Test - Final 08/16/18 17:53 Stool - Pending C. difficile GDH Antigen & Toxins - Final Laboratory Tests 08/18/18 08/19/18 08:33 04:18 Potassium 3.1 L 3.3 L Phys Exam - Physical Examination alert, responsive HEENT: PERRLA, sclera anicteric, oral pharynx no lesions Neck: no nodes, no JVD, supple, full ROM Respiratory: no wheezing, no rales, no rhonchi, clear to auscultation bilateral S1, S2 Cardiovascular: RRR, no significant murmur, no rub, gallop Gastrointestinal: soft, non-tender, no distention, positive bowel sounds Musculoskeletal: no edema, pulses present Neurological: normal sensation, moves all 4 limbs Psychiatric: A&O x 3 Skin: normal turgor, cap refill <2 seconds Dx/Plan (1) Influenza B Code(s): J10.1 - FLU DUE TO OTH IDENT INFLUENZA VIRUS W OTH RESP MANIFEST Status: Acute Comment: Start Tamiflu 75mg BID, contact/respiratory precautions (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 - GASTROENTERITIS AND COLITIS DUE TO RADIATION Status: Acute Comment: Improved, continue Mesalamine enemas, supportive mgmt (3) Hypokalemia Code(s): E87.6 - HYPOKALEMIA Status: Acute Comment: KCL supplementation, serial K+ monitoring (4) Neck pain Code(s): M54.2 - CERVICALGIA Status: Acute Comment: Likely myalgia due to Influenza B, topical Lidocaine, Tizanidine, [place] (5) Bone metastases Code(s): C79.51 - SECONDARY MALIGNANT NEOPLASM OF BONE Status: Chronic Comment: s/p chemo/XRT (6) Malignant neoplasm of female breast Code(s): C50.919 - MALIGNANT NEOPLASM OF UNSP SITE OF UNSPECIFIED FEMALE BREAST Status: Chronic Qualifiers: Breast location: unspecified site of breast Laterality: right Comment: Supportive mgmt, pain control, Oncology follow up as outpt - Plan continue antibiotics, 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
[2018-08-25] MEDS: Simethicone Chewable 80 MG TAB PO PRN (11:17)
[2018-08-25] MEDS: Morphine IR 10 MG/5 ML UDCUP PO PRN ×2 (11:17→18:26)
[2018-08-25] MEDS ORDERED: HYDROcodone/Acetaminophen 10/325 mg Tablet PO PRN (20:52)
[2018-08-25] MEDS: ALPRAZolam 0.5 MG TAB PO PRN (20:54)
[2018-08-25] MEDS: Exemestane 25 MG TAB PO SCH ×2 (20:54→21:18)
[2018-08-25] MEDS: REMOVE LIDOCAINE FS SCH (21:18)
[2018-08-26] MEDS: Simethicone Chewable 80 MG TAB PO PRN (01:47)
[2018-08-26] MEDS: HYDROcodone/Acetaminophen 10/325 mg Tablet PO PRN ×4 (05:09→20:29)
--- NOTE | 2018-08-26 06:22 | PDOC.EVN ---
Event Note - Event Note Event Note: pt has had multiple episodes of fever overnight, pt likely immunocompromised given hx, started on cefepime, we will consult ID for assistance with our patient given increased in recurrence of fevers, no significant response to tamiflu,, cultures have been sent. will need to be followed.
--- NOTE | 2018-08-26 08:22 | RAD ---
CHEST ONE VIEW: Indication: Rule out pneumonia. Comparison: 08-22-18 FINDINGS: Low lung volumes accentuate the cardiac silhouette and pulmonary vasculature. No definite confluent a irspace, pleural effusion or pneumothorax is evident. No definite osseous abnormality is evident. IMPRESSION: No definite acute cardiopulmonary process. POS: [facility]
[2018-08-26] MEDS: Saccharomyces boulardii 250 MG CAP PO SCH (09:00)
[2018-08-26] MEDS: Oseltamivir 75 MG CAP PO SCH ×2 (09:00→20:28)
[2018-08-26] MEDS: Ascorbic Acid 500 mg Chewable Tablet PO SCH ×3 (09:00→20:28)
[2018-08-26] MEDS: Loratadine 10 MG TAB PO SCH (09:02)
[2018-08-26] MEDS: guaiFENesin/DM ER PO SCH ×2 (09:02→20:28)
[2018-08-26] MEDS: Fluticasone Propionate Nasal Spray 16 gm Bottle NASAL SCH (09:04)
[2018-08-26] MEDS: Lidocaine 5% Patch TD SCH (09:12)
[2018-08-26] MEDS: Cefepime 2 GM in Sodium Chloride 0.9% 100 ML IVPB SCH ×2 (09:28→17:14)
[2018-08-26] MEDS: Morphine IR 10 MG/5 ML UDCUP PO PRN (12:13)
[2018-08-26 13:14] VITALS: BMI 32.5
--- NOTE | 2018-08-26 14:21 | PDOC.PN ---
- Subjective Encounter Start Date: 08/26/18 Encounter Start Time: 14:00 Subjective: f/u for Influenza B and fevers overnight. Feels a little better currently -: but still has myalgias. Noticed some pain on scalp today with small bump. -: Denies injury except to L scalp 20 yrs ago. - Objective Resuscitation Status - Order Detail: 08/16/18 22:19 Resuscitation Status Routine Resuscitation Status: FULL: Full Resuscitation MAR Reviewed: Yes Vital Signs & Weight: Vital Signs (12 hours) Temp Pulse Resp BP Pulse Ox 08/26/18 11:34 98.7 F 114 H 18 111/76 94 L 08/26/18 08:40 94 L 08/26/18 08:00 98.2 F 114 H 18 99/67 94 L 08/26/18 06:00 98.5 F 08/26/18 05:46 101.0 F H Weight Admit Weight 177 lb Weight 178 lb I&O: 08/25/18 08/26/18 08/27/18 06:59 06:59 06:59 Intake Total 400 3540 Balance 400 3540 Result Diagrams: 08/22/18 09:08 08/22/18 09:08 Additional Labs: Microbiology 08/24/18 10:20 Nasopharyngeal swab Influenza Types A,B Direct EIA - Final 08/16/18 17:53 Stool - Pending Stool Occult Blood (SHANTELLE) - Final 08/16/18 17:53 Stool - Pending Stool Lactoferrin - Final 08/16/18 17:53 Stool - Pending Stool Culture - Final 08/16/18 17:53 Stool - Pending Escherichia coli 0157 Culture - Final 08/16/18 17:53 Stool - Pending Campylobacter Antigen Assay - Final 08/16/18 17:53 Stool - Pending Shiga Toxin Test - Final 08/16/18 17:53 Stool - Pending C. difficile GDH Antigen & Toxins - Final 08/25/18 23:00 Urine voided Urine Culture - Preliminary NO GROWTH AT 12 HOURS 08/25/18 22:37 Venous blood - Left Hand Blood Culture - Preliminary Specimen has been received and culture in progress. No Growth to date. Laboratory Tests 08/18/18 08/19/18 08:33 04:18 Potassium 3.1 L 3.3 L Radiology Reviewed by me: Yes (PCXR - no acute process) Phys Exam - Physical Examination Constitutional: NAD alert, responsive mild TTP in R parietal region, mild edema, no erythema or discharge HEENT: PERRLA, sclera anicteric, oral pharynx no lesions no adenopathy or meningeal signs Neck: no nodes, no JVD, supple, full ROM Respiratory: no wheezing, no rales, no rhonchi, clear to auscultation bilateral S1, S2 Cardiovascular: RRR, no significant murmur, no rub, gallop Gastrointestinal: soft, non-tender, no distention, positive bowel sounds Musculoskeletal: no edema, pulses present Neurological: normal sensation, moves all 4 limbs Psychiatric: A&O x 3 Skin: normal turgor, cap refill <2 seconds Dx/Plan (1) Influenza B Code(s): J10.1 - FLU DUE TO OTH IDENT INFLUENZA VIRUS W OTH RESP MANIFEST Status: Acute Comment: Start Tamiflu 75mg BID, contact/respiratory precautions (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 - GASTROENTERITIS AND COLITIS DUE TO RADIATION Status: Acute Comment: Improved, continue Mesalamine enemas, supportive mgmt (3) Hypokalemia Code(s): E87.6 - HYPOKALEMIA Status: Acute Comment: KCL supplementation, serial K+ monitoring (4) Neck pain Code(s): M54.2 - CERVICALGIA Status: Acute Comment: Likely myalgia due to Influenza B, topical Lidocaine, Tizanidine, [place] (5) Bone metastases Code(s): C79.51 - SECONDARY MALIGNANT NEOPLASM OF BONE Status: Chronic Comment: s/p chemo/XRT (6) Malignant neoplasm of female breast Code(s): C50.919 - MALIGNANT NEOPLASM OF UNSP SITE OF UNSPECIFIED FEMALE BREAST Status: Chronic Qualifiers: Breast location: unspecified site of breast Laterality: right Comment: Supportive mgmt, pain control, Oncology follow up as outpt - Plan plan discussed w/ family, continue antibiotics, PT/OT, social media developer, out of bed/ambulate Stable currently -: Continue Tamiflu -: Continue Cefepime and monitor temperature trend -: OOB/ambulate -: AM lab: BMP, CBC * .
[2018-08-26] MEDS: Calcium Carbonate 500 MG ChewTAB PO PRN (20:28)
[2018-08-26] MEDS: Exemestane 25 MG TAB PO SCH (20:29)
[2018-08-26] MEDS: REMOVE LIDOCAINE FS SCH (20:29)
[2018-08-27] MEDS: ALPRAZolam 0.5 MG TAB PO PRN ×2 (00:35→23:43)
[2018-08-27] MEDS: HYDROcodone/Acetaminophen 10/325 mg Tablet PO PRN ×4 (06:13→22:12)
[2018-08-27 08:05] LABS: Hemoglobin 9.5 g/dL (12.0-16.0); Mean Corpuscular HGB CONC 31.2 g/dL (32.0-36.0); Mean Corpuscular Hemoglobin 23.7 pg (27.0-31.0); Mean Corpuscular Volume 75.8 fL (78.0-98.0); Mean Platelet Volume 8.2 fL (7.4-10.4); Platelet Count 345 thou/uL (130-400); RBC Distribution Width 16.5 % (11.5-14.5); Red Blood Cell (RBC) Count 4.01 mill/uL (4.20-5.40); White Blood Cell (WBC) Count 6.4 thou/uL (4.8-10.8)
[2018-08-27 08:10] LABS: Anion Gap 16 mmol/L (10-20); BUN (Urea Nitrogen) 5 mg/dL (7.0-18.7); Calc. Creatinine Clearance 149 mL/min (70-130); Calcium 9.2 mg/dL (7.8-10.44); Carbon Dioxide 20 mmol/L (22-29); Chloride 103 mmol/L (98-107); Estimated GFR-MDRD Greater than 90; Glucose 90 mg/dL (70-105); Potassium 3.9 mmol/L (3.5-5.1); Sodium 135 mmol/L (136-145)
[2018-08-27] MEDS: Cefepime 2 GM in Sodium Chloride 0.9% 100 ML IVPB SCH ×4 (08:57→23:44)
[2018-08-27] MEDS: Ascorbic Acid 500 mg Chewable Tablet PO SCH ×3 (08:58→19:57)
[2018-08-27] MEDS: Saccharomyces boulardii 250 MG CAP PO SCH (08:58)
[2018-08-27] MEDS: Oseltamivir 75 MG CAP PO SCH ×2 (08:58→19:58)
[2018-08-27] MEDS: Fluticasone Propionate Nasal Spray 16 gm Bottle NASAL SCH (08:59)
[2018-08-27] MEDS: Loratadine 10 MG TAB PO SCH (08:59)
[2018-08-27] MEDS: guaiFENesin/DM ER PO SCH ×2 (08:59→19:58)
[2018-08-27] MEDS: Lidocaine 5% Patch TD SCH ×2 (09:00→16:32)
[2018-08-27 09:43] LABS: Band 4 % (5-11); Eosinophils 11 % (0-10); Hypochromia SLIGHT = 6-15 cells (100X) (0-5/hpf); Lymphocytes 13 % (21-51); MDiff Complete? YES; Microcytosis SLIGHT = 6-15 cells (100X) (0-5/hpf); Monocytes 10 % (0-10); Neutrophil 62 % (42-75); Platelet Morphology Comment Appears Adequate; Polychromasia SLIGHT = 2-3 cells (100X) (0-2/hpf)
[2018-08-27] MEDS: Calcium Carbonate 500 MG ChewTAB PO PRN (11:44)
--- NOTE | 2018-08-27 15:04 | PDOC.PN ---
- Subjective Encounter Start Date: 08/27/18 Encounter Start Time: 15:00 Subjective: f/u Influenza B, febrile illness and radiation-induced colitis. [place] good -: this am but more tired later in the day. No fever documented over -: the daytime. - Objective Resuscitation Status - Order Detail: 08/16/18 22:19 Resuscitation Status Routine Resuscitation Status: FULL: Full Resuscitation MAR Reviewed: Yes Vital Signs & Weight: Vital Signs (12 hours) Temp Pulse Resp BP Pulse Ox 08/27/18 11:34 98.4 F 118 H 16 127/85 96 08/27/18 09:29 95 08/27/18 08:00 98.1 F 111 H 16 104/67 95 Weight Admit Weight 177 lb Weight 178 lb I&O: 08/26/18 08/27/18 08/28/18 06:59 06:59 06:59 Intake Total 3540 2860 Balance 3540 2860 Result Diagrams: 08/27/18 06:50 08/27/18 06:50 Additional Labs: Microbiology 08/25/18 23:00 Urine voided Urine Culture - Final NO GROWTH AT 36 HOURS 08/24/18 10:20 Nasopharyngeal swab Influenza Types A,B Direct EIA - Final 08/16/18 17:53 Stool - Pending Stool Occult Blood (SHANTELLE) - Final 08/16/18 17:53 Stool - Pending Stool Lactoferrin - Final 08/16/18 17:53 Stool - Pending Stool Culture - Final 08/16/18 17:53 Stool - Pending Escherichia coli 0157 Culture - Final 08/16/18 17:53 Stool - Pending Campylobacter Antigen Assay - Final 08/16/18 17:53 Stool - Pending Shiga Toxin Test - Final 08/16/18 17:53 Stool - Pending C. difficile GDH Antigen & Toxins - Final 08/25/18 23:00 Urine voided Urine Culture - Preliminary NO GROWTH AT 12 HOURS 08/25/18 22:37 Venous blood - Left Hand Blood Culture - Preliminary Specimen has been received and culture in progress. No Growth to date. 08/25/18 22:37 Venous blood - Left Arm Blood Culture - Preliminary Specimen has been received and culture in progress. No Growth to date. Laboratory Tests 08/18/18 08/19/18 08:33 04:18 Potassium 3.1 L 3.3 L Radiology Reviewed by me: Yes (Scalp US - small fluid collection on R scalp) Phys Exam - Physical Examination Constitutional: NAD small fluctuance in R parietal/occipito region HEENT: PERRLA, sclera anicteric, oral pharynx no lesions Neck: no nodes, no JVD, supple, full ROM Respiratory: no wheezing, no rales, no rhonchi, clear to auscultation bilateral S1, S2 Cardiovascular: RRR, no significant murmur, no rub, gallop Gastrointestinal: soft, non-tender, no distention, positive bowel sounds Musculoskeletal: no edema, pulses present Neurological: normal sensation, moves all 4 limbs Psychiatric: A&O x 3 Skin: normal turgor, cap refill <2 seconds Dx/Plan (1) Influenza B Code(s): J10.1 - FLU DUE TO OTH IDENT INFLUENZA VIRUS W OTH RESP MANIFEST Status: Acute Comment: Start Tamiflu 75mg BID, contact/respiratory precautions , will finish course in 24h (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 - GASTROENTERITIS AND COLITIS DUE TO RADIATION Status: Acute Comment: Improved, continue Mesalamine enemas, supportive mgmt, decrease Mesalamine to daily (3) Hypokalemia Code(s): E87.6 - HYPOKALEMIA Status: Acute Comment: KCL supplementation, serial K+ monitoring (4) Neck pain Code(s): M54.2 - CERVICALGIA Status: Acute Comment: Likely myalgia due to Influenza B, topical Lidocaine, Tizanidine, [place], await final US read of scalp (5) Bone metastases Code(s): C79.51 - SECONDARY MALIGNANT NEOPLASM OF BONE Status: Chronic Comment: s/p chemo/XRT (6) Malignant neoplasm of female breast Code(s): C50.919 - MALIGNANT NEOPLASM OF UNSP SITE OF UNSPECIFIED FEMALE BREAST Status: Chronic Qualifiers: Breast location: unspecified site of breast Laterality: right Comment: Supportive mgmt, pain control, Oncology follow up as outpt - Plan continue antibiotics, 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
--- NOTE | 2018-08-27 16:07 | ULT ---
SCALP ULTRASOUND: Date: 08/27/18 HISTORY: Left scalp mass. FINDINGS: Real-time imaging of the scalp in the area of concern failed to show any cystic or solid lesions. The patient also reported an area of pain on the right side. In this region, there is some questionable slight increased vascularity, but no mass is identified. IMPRESSION: Unremarkable ultrasound of the scalp. POS: [facility]
[2018-08-27] MEDS: Exemestane 25 MG TAB PO SCH (19:57)
[2018-08-27] MEDS: Morphine IR 10 MG/5 ML UDCUP PO PRN (20:01)
[2018-08-27] MEDS: REMOVE LIDOCAINE FS SCH ×2 (20:08→20:09)
[2018-08-28] MEDS: Ketorolac Tromethamine 30 MG/ML VIAL IVP PRN ×2 (02:25→13:30)
[2018-08-28] MEDS: Cefepime 2 GM in Sodium Chloride 0.9% 100 ML IVPB SCH ×3 (08:49→23:39)
[2018-08-28] MEDS: Lidocaine 5% Patch TD SCH (08:50)
[2018-08-28] MEDS: Oseltamivir 75 MG CAP PO SCH ×2 (08:51→19:18)
[2018-08-28] MEDS: guaiFENesin/DM ER PO SCH ×2 (08:51→19:18)
[2018-08-28] MEDS: Ascorbic Acid 500 mg Chewable Tablet PO SCH ×3 (08:51→19:18)
[2018-08-28] MEDS: Loratadine 10 MG TAB PO SCH (08:52)
[2018-08-28] MEDS: Saccharomyces boulardii 250 MG CAP PO SCH (08:52)
[2018-08-28] MEDS: HYDROcodone/Acetaminophen 10/325 mg Tablet PO PRN ×3 (08:54→23:48)
[2018-08-28] MEDS: Fluticasone Propionate Nasal Spray 16 gm Bottle NASAL SCH (08:57)
--- NOTE | 2018-08-28 15:03 | PDOC.PN ---
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 Feels better overall -: with some residual bodyaches and myalgia. Completing full-course -: Tamiflu. - Objective Resuscitation Status - Order Detail: 08/16/18 22:19 Resuscitation Status Routine Resuscitation Status: FULL: Full Resuscitation MAR Reviewed: Yes Vital Signs & Weight: Vital Signs (12 hours) Temp Pulse Resp BP BP Pulse Ox 08/28/18 11:34 123/68 08/28/18 08:00 99.3 F 121 H 16 114/73 98 08/28/18 06:00 97.9 F 118 H 16 97 Weight Admit Weight 177 lb Weight 178 lb I&O: 08/27/18 08/28/18 08/29/18 06:59 06:59 06:59 Intake Total 2860 1840 Balance 2860 1840 Result Diagrams: 08/27/18 06:50 08/27/18 06:50 Additional Labs: Microbiology 08/25/18 23:00 Urine voided Urine Culture - Final NO GROWTH AT 36 HOURS 08/24/18 10:20 Nasopharyngeal swab Influenza Types A,B Direct EIA - Final 08/16/18 17:53 Stool - Pending Stool Occult Blood (SHANTELLE) - Final 08/16/18 17:53 Stool - Pending Stool Lactoferrin - Final 08/16/18 17:53 Stool - Pending Stool Culture - Final 08/16/18 17:53 Stool - Pending Escherichia coli 0157 Culture - Final 08/16/18 17:53 Stool - Pending Campylobacter Antigen Assay - Final 08/16/18 17:53 Stool - Pending Shiga Toxin Test - Final 08/16/18 17:53 Stool - Pending C. difficile GDH Antigen & Toxins - Final 08/25/18 23:00 Urine voided Urine Culture - Preliminary NO GROWTH AT 12 HOURS 08/25/18 22:37 Venous blood - Left Hand Blood Culture - Preliminary Specimen has been received and culture in progress. No Growth to date. 08/25/18 22:37 Venous blood - Left Arm Blood Culture - Preliminary Specimen has been received and culture in progress. No Growth to date. Laboratory Tests 08/18/18 08/19/18 08:33 04:18 Potassium 3.1 L 3.3 L Phys Exam - Physical Examination Constitutional: NAD smiling, alert HEENT: PERRLA, sclera anicteric, oral pharynx no lesions Neck: no nodes, no JVD, supple, full ROM Respiratory: no wheezing, no rales, no rhonchi, clear to auscultation bilateral S1, S2 Cardiovascular: RRR, no significant murmur, no rub, gallop Gastrointestinal: soft, non-tender, no distention, positive bowel sounds Musculoskeletal: no edema, pulses present Neurological: normal sensation, moves all 4 limbs Psychiatric: A&O x 3 Skin: normal turgor, cap refill <2 seconds Dx/Plan (1) Influenza B Code(s): J10.1 - FLU DUE TO OTH IDENT INFLUENZA VIRUS W OTH RESP MANIFEST Status: Acute Comment: Completing Tamiflu today, contact/respiratory precautions, will finish course today (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 - GASTROENTERITIS AND COLITIS DUE TO RADIATION Status: Acute Comment: Improved, continue Mesalamine enemas, supportive mgmt, decrease Mesalamine to daily (3) Hypokalemia Code(s): E87.6 - HYPOKALEMIA Status: Acute Comment: KCL supplementation, serial K+ monitoring (4) Neck pain Code(s): M54.2 - CERVICALGIA Status: Acute Comment: Likely myalgia due to Influenza B, topical Lidocaine, Tizanidine, [place], Sono negative (5) Bone metastases Code(s): C79.51 - SECONDARY MALIGNANT NEOPLASM OF BONE Status: Chronic Comment: s/p chemo/XRT (6) Malignant neoplasm of female breast Code(s): C50.919 - MALIGNANT NEOPLASM OF UNSP SITE OF UNSPECIFIED FEMALE BREAST Status: Chronic Qualifiers: Breast location: unspecified site of breast Laterality: right Comment: Supportive mgmt, pain control, Oncology follow up as outpt - Plan Stable currently -: Continue Cefepime another 24h -: Tamiflu completing today -: OOB/ambulate -: Likely home in 24-48h * .
[2018-08-28] MEDS: Morphine IR 10 MG/5 ML UDCUP PO PRN (15:43)
[2018-08-28] MEDS: Exemestane 25 MG TAB PO SCH (19:18)
[2018-08-28] MEDS: REMOVE LIDOCAINE FS SCH (19:28)
[2018-08-28] MEDS: Everolimus [Afinitor] 7.5 MG PO SCH (22:08)
[2018-08-28] MEDS: ALPRAZolam 0.5 MG TAB PO PRN (22:25)
[2018-08-28] MEDS: Calcium Carbonate 500 MG ChewTAB PO PRN (22:25)
[2018-08-29] MEDS: Ketorolac Tromethamine 30 MG/ML VIAL IVP PRN (02:32)
[2018-08-29] MEDS: guaiFENesin/DM ER PO SCH ×2 (08:21→20:45)
[2018-08-29] MEDS: Ascorbic Acid 500 mg Chewable Tablet PO SCH ×3 (08:21→20:46)
[2018-08-29] MEDS: Lidocaine 5% Patch TD SCH (08:22)
[2018-08-29] MEDS: Fluticasone Propionate Nasal Spray 16 gm Bottle NASAL SCH (08:22)
[2018-08-29] MEDS: Oseltamivir 75 MG CAP PO SCH ×2 (08:22→20:46)
[2018-08-29] MEDS: Saccharomyces boulardii 250 MG CAP PO SCH (08:22)
[2018-08-29] MEDS: Loratadine 10 MG TAB PO SCH (08:22)
[2018-08-29] MEDS: Cefepime 2 GM in Sodium Chloride 0.9% 100 ML IVPB SCH ×3 (08:23→23:53)
[2018-08-29] MEDS: HYDROcodone/Acetaminophen 10/325 mg Tablet PO PRN ×4 (08:31→16:59)
[2018-08-29] MEDS ORDERED: SUMAtriptan Succinate 25 MG TAB PO SCH (12:45)
[2018-08-29] MEDS ORDERED: Naproxen 500 MG TAB PO SCH (12:45)
--- NOTE | 2018-08-29 14:59 | PDOC.PN ---
- Subjective Encounter Start Date: 08/29/18 Encounter Start Time: 12:00 Subjective: f/u for Influenza B s/p Tamiflu course. No cough or fever. Still c/o -: R parietal/occipital pain with radiation to R eye region. - Objective Resuscitation Status - Order Detail: 08/16/18 22:19 Resuscitation Status Routine Resuscitation Status: FULL: Full Resuscitation MAR Reviewed: Yes Vital Signs & Weight: Vital Signs (12 hours) Temp Pulse Resp BP Pulse Ox 08/29/18 14:11 98.8 F 08/29/18 08:26 98.1 F 114 H 18 125/92 H 95 Weight Admit Weight 177 lb Weight 178 lb I&O: 08/28/18 08/29/18 08/30/18 06:59 06:59 06:59 Intake Total 1840 240 Balance 1840 240 Result Diagrams: 08/27/18 06:50 08/27/18 06:50 Additional Labs: Microbiology 08/25/18 23:00 Urine voided Urine Culture - Final NO GROWTH AT 36 HOURS 08/24/18 10:20 Nasopharyngeal swab Influenza Types A,B Direct EIA - Final 08/16/18 17:53 Stool - Pending Stool Occult Blood (SHANTELLE) - Final 08/16/18 17:53 Stool - Pending Stool Lactoferrin - Final 08/16/18 17:53 Stool - Pending Stool Culture - Final 08/16/18 17:53 Stool - Pending Escherichia coli 0157 Culture - Final 08/16/18 17:53 Stool - Pending Campylobacter Antigen Assay - Final 08/16/18 17:53 Stool - Pending Shiga Toxin Test - Final 08/16/18 17:53 Stool - Pending C. difficile GDH Antigen & Toxins - Final 08/25/18 23:00 Urine voided Urine Culture - Preliminary NO GROWTH AT 12 HOURS 08/25/18 22:37 Venous blood - Left Hand Blood Culture - Preliminary Specimen has been received and culture in progress. No Growth to date. 08/25/18 22:37 Venous blood - Left Arm Blood Culture - Preliminary Specimen has been received and culture in progress. No Growth to date. Laboratory Tests 08/18/18 08/19/18 08:33 04:18 Potassium 3.1 L 3.3 L Radiology Reviewed by me: Yes (CT brain - pending) Phys Exam - Physical Examination Constitutional: NAD mild TTP in R occipito/parietal region, no palpable mass no meningeal signs HEENT: PERRLA, sclera anicteric, oral pharynx no lesions Neck: no nodes, no JVD, supple, full ROM Respiratory: no wheezing, no rales, no rhonchi, clear to auscultation bilateral tachycardic S1, S2 Cardiovascular: no significant murmur, no rub, gallop Gastrointestinal: soft, non-tender, no distention, positive bowel sounds Musculoskeletal: no edema, pulses present Neurological: normal sensation, moves all 4 limbs Psychiatric: A&O x 3 Skin: normal turgor, cap refill <2 seconds Dx/Plan (1) Influenza B Code(s): J10.1 - FLU DUE TO OTH IDENT INFLUENZA VIRUS W OTH RESP MANIFEST Status: Acute Comment: Completed Tamiflu, d/c contact/respiratory precautions (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 - GASTROENTERITIS AND COLITIS DUE TO RADIATION Status: Acute Comment: Improved, continue Mesalamine enemas, supportive mgmt, decrease Mesalamine to daily (3) Hypokalemia Code(s): E87.6 - HYPOKALEMIA Status: Acute Comment: KCL supplementation, serial K+ monitoring (4) Neck pain Code(s): M54.2 - CERVICALGIA Status: Acute Comment: Likely myalgia due to Influenza B, topical Lidocaine, Tizanidine, [place], Sono negative, check CT brain /calvarium to r/o metastatic process (5) Bone metastases Code(s): C79.51 - SECONDARY MALIGNANT NEOPLASM OF BONE Status: Chronic Comment: s/p chemo/XRT (6) Malignant neoplasm of female breast Code(s): C50.919 - MALIGNANT NEOPLASM OF UNSP SITE OF UNSPECIFIED FEMALE BREAST Status: Chronic Qualifiers: Breast location: unspecified site of breast Laterality: right Comment: Supportive mgmt, pain control, Oncology follow up as outpt - Plan continue antibiotics, PT/OT, long term care social worker, out of bed/ambulate, DVT proph w/ SCDs Stable currently -: Check CT brain to r/o metastatic process given hx of breast ca -: Naproxen 500mg BID -: Add Imitrex -: OOB/ambulate * D/C Respiratory precautions/isolation
--- NOTE | 2018-08-29 15:10 | CT ---
CT OF BRAIN PERFORMED WITH AND WITHOUT CONTRAST ENHANCEMENT: Date: 08/29/18 HISTORY: Right-sided headache. History of breast cancer. FINDINGS: The ventricular and cisternal system is within normal limits. There are no signs of intracerebral hem orrhage or extra-axial fluid collections. No mass is identified. No areas of abnormal enhancement. The mastoid air cells are clear. There is some mucosal change in the visualized ethmoid air cells. IMPRESSION: No acute intracranial abnormalities. POS: [facility]
[2018-08-29] MEDS ORDERED: ISOVUE-370 76%-LOCM 1 ML ONE (16:35)
[2018-08-29] MEDS: Exemestane 25 MG TAB PO SCH (20:46)
[2018-08-29] MEDS: Everolimus [Afinitor] 7.5 MG PO SCH (20:47)
[2018-08-29] MEDS: Naproxen 500 MG TAB PO SCH (20:55)
[2018-08-29] MEDS: REMOVE LIDOCAINE FS SCH (20:56)
[2018-08-29] MEDS: ALPRAZolam 0.5 MG TAB PO PRN (22:24)
[2018-08-30] MEDS: HYDROcodone/Acetaminophen 10/325 mg Tablet PO PRN ×3 (00:37→13:21)
[2018-08-30] MEDS: guaiFENesin/DM ER PO SCH (07:50)
[2018-08-30] MEDS: Ascorbic Acid 500 mg Chewable Tablet PO SCH ×2 (07:50→13:21)
[2018-08-30] MEDS: Saccharomyces boulardii 250 MG CAP PO SCH (07:50)
[2018-08-30] MEDS: Naproxen 500 MG TAB PO SCH (07:50)
[2018-08-30] MEDS: Cefepime 2 GM in Sodium Chloride 0.9% 100 ML IVPB SCH ×2 (07:50→15:26)
[2018-08-30] MEDS: Oseltamivir 75 MG CAP PO SCH (07:50)
[2018-08-30] MEDS: Loratadine 10 MG TAB PO SCH (07:50)
[2018-08-30] MEDS: Fluticasone Propionate Nasal Spray 16 gm Bottle NASAL SCH (07:51)
[2018-08-30] MEDS: Lidocaine 5% Patch TD SCH (07:51)
[2018-08-30] MEDS: Calcium Carbonate 500 MG ChewTAB PO PRN (13:21)
[2018-08-30 17:43] VITALS: BP 108/73; TEMP 98.1
--- NOTE | 2018-08-31 14:08 | DIS ---
DATE OF ADMISSION: 08/18/2018 DATE OF DISCHARGE: 08/30/2018 DISCHARGE DIAGNOSES: 1. Influenza B, completed Tamiflu therapy, resolving. 2. Radiation-induced colitis, improved and resolving. 3. Migraine headache suspected. 4. Hypokalemia, resolved. 5. Breast carcinoma with bone metastasis, chronic, on oral chemotherapy. 6. Chronic microcytic anemia, secondary to chemotherapy. CONSULTATIONS: Dr. Morillo and Dr. Small with GI Service. PERTINENT LAB AND X-RAY FINDINGS: Potassium ranged between 3.1 to 3.9. Lactic acid level 1.7. Magnesium level ranged between 1.8 to 2.0. AST 40, ALT 32, alkaline phosphatase 175, total CK 280, and albumin 4.5. CBC showed a white blood cell count ranged between 4.3 to 8.4, hemoglobin ranged between 9.5 to 11.4. Stool lactoferrin dated 08/16/2018, positive. E coli 0157, stool culture dated 08/16/2018, not performed. C difficile antigen and toxin dated 08/16/2018, negative. Stool Hemoccult dated 08/16/2018, positive x1. Stool culture dated 08/16/2018 showed normal enteric ana. No Salmonella, Shigella, or E coli 0157. Campylobacter antigen and Shigella toxin dated 08/16/2018 showed positive Campylobacter antigen. Influenza A and B antigen, positive for influenza B antigen on 08/24/2018. Blood cultures x2 dated 08/25/2018 showed no growth at 48 hours. Urine culture dated 08/25/2018 showed no growth at 36 hours. Colonoscopy dated 08/20/2018 showed severe confluent colitis in sigmoid region consistent with radiation-induced colitis. Also noted involvement of the ascending colon near the ileocecal valve. CT of the brain without contrast dated 08/29/2018, negative. Soft tissue ultrasound of the scalp dated 08/27/2018, negative. HOSPITAL COURSE: The patient was initially admitted to the oncology unit after presenting with persistent and profound diarrhea. The patient underwent extensive evaluation including multiple stool studies with initially Campylobacter antigen positive stool sample. The patient was placed on Zithromax and evaluated by the GI Service due to chronic immunosuppressive therapy with chemotherapy agents due to breast cancer. The patient underwent subsequent colonoscopy exam showing evidence of colitis, likely radiation-induced colitis. The patient was placed on mesalamine enemas twice daily and treated for over 1-1/2 weeks period of time. The patient's overall stool frequency and volume decreased with resolution by the time of discharge. This patient's hospital course also complicated by increasing fevers and discovered with influenza B. The patient was placed on Tamiflu 75 mg twice daily and completed the course of therapy prior to discharge. The patient's hospital course also complicated by increasing neck and scalp pain, undergoing soft tissue ultrasound as well as CT imaging of the head showing no acute process. The patient was given a trial of Imitrex, NSAIDs, and muscle relaxers with overall improving frequency and intensity of headaches. The patient was able to tolerate regular oral intake and has been ambulating in the hallways. I have examined the patient at the time of discharge and discussed followup instructions. The patient verbalized understanding and in agreement and ready for discharge on 08/30/2018. DISCHARGE MEDICATIONS: 1. Xanax 0.5 mg p.o. at bedtime p.r.n. 2. Vitamin C 1000 mg p.o. t.i.d. 3. Calcium carbonate with vitamin D 2 tablets p.o. b.i.d. 4. Vitamin D3 5000 units p.o. daily. 5. Flexeril 10 mg p.o. t.i.d. p.r.n. 6. Afinitor 7.5 mg p.o. at bedtime. 7. Aromasin 25 mg p.o. at bedtime. 8. [place] 10/325 mg one tablet p.o. q.4 hours p.r.n. pain. 9. Lidocaine patch 3 patches transdermally daily as needed. 10. Mesalamine 60 mL per rectum at bedtime. 11. Naproxen 500 mg p.o. b.i.d. p.r.n. 12. Florastor 250 mg p.o. daily. 13. Imitrex 25 mg p.o. daily p.r.n. migraine headache. FOLLOWUP: The patient will follow up with Dr. Deya Duran and to call our office for appointment time and date. CONDITION ON DISCHARGE: Stable. ACTIVITY: Ad-ela. DIET: Regular. CODE STATUS: Full. DISPOSITION: To home, 08/30/2018. TIME SPENT: Total time preparing and coordinating discharge, 37 minutes. Job ID: [id number]
== END 2018-08-30 17:40 | disposition home or self-care (01) | DRG 372 ==
LOC: ERS 17:19 → ONC 19:30 → OBSVTOIN 08-18 10:19 → T4-B 08-24 21:07 → T4-A 08-29 22:40
PROVIDERS: ADMIT Hospitalist; ATTEND Hospitalist
PROC: 0DBK8ZX Excision of Ascending Colon, Via Natural or Artificial Opening Endoscopic, Diagnostic (ICD-10-PCS; principal; 2018-08-20)
PROC: 0DBN8ZX Excision of Sigmoid Colon, Via Natural or Artificial Opening Endoscopic, Diagnostic (ICD-10-PCS; 2018-08-20)
PROC: 0DBM8ZX Excision of Descending Colon, Via Natural or Artificial Opening Endoscopic, Diagnostic (ICD-10-PCS; 2018-08-20)
DX: A04.5 Campylobacter enteritis (principal); K52.0 Gastroenteritis and colitis due to radiation; C79.51 Secondary malignant neoplasm of bone; D50.9 Iron deficiency anemia, unspecified; Z90.11 Acquired absence of right breast and nipple; E86.0 Dehydration; E87.6 Hypokalemia; J10.1 Influenza due to other identified influenza virus with other respiratory manifestations; C50.911 Malignant neoplasm of unspecified site of right female breast; M54.2 Cervicalgia
CPT/HCPCS: 36415; 70470; 71045; 71046; 76999; 80048; 80053; 81003; 82274; 82550; 83605; 83630; 83735; 84100; 85007; 85025; 85027; 87040; 87045; 87046; 87086; 87324; 87449; 87804; 87899; 88305; 96361; 96374; J0692; J1885; J2270; J2405; J2704; J7050; Q9966

== ENCOUNTER 2018-09-09 14:25 | Day surgery (SDC) | payer SELFPAY ==
[2018-09-09 14:34] VITALS: BP 126/61
== END 2018-09-09 15:24 | disposition home or self-care (01) ==
LOC: ONC/OP 14:25
PROVIDERS: ATTEND Internal Medicine Hematology & Oncology
DX: Z51.11 Encounter for antineoplastic chemotherapy (principal); C50.111 Malignant neoplasm of central portion of right female breast; C78.2 Secondary malignant neoplasm of pleura; C79.51 Secondary malignant neoplasm of bone; J45.909 Unspecified asthma, uncomplicated; Z90.11 Acquired absence of right breast and nipple
CPT/HCPCS: 96372; J0897

== ENCOUNTER 2018-10-13 08:03 | Outpatient (CLI) | payer OTHER ==
--- NOTE | 2018-10-13 09:43 | CT ---
CT OF THE CHEST, ABDOMEN AND PELVIS WITH IV CONTRAST: INDICATION: History of metastatic breast cancer. CONTRAST: 70 cc of Isovue 370. COMPARISON: CT of the chest, abdomen, and pelvis dated 07/07/2018 from [facility] and a CT of the abdomen and pelvis dated 07/29/2018 from [facility]. FINDINGS: CHEST: The pleural-based soft tissue density within the posteromedial aspect of the right lower lobe on imag e 38 of series 5 is relatively stable measuring 4.7 cm. A small right pleural effusion persists. Th e small pulmonary nodules within the superior segment of the right lower lobe are stable in size manav uring 4 and 6 mm respectively on image 24 and image 27 of series 2. The geographic fibrotic change i nvolving the right upper lobe is stable. Small sub-4 mm pulmonary nodule of the right upper lobe on image 32 of series 2 is stable. The left lung remains relatively clear. Postsurgical changes of a prior mastectomy and right breast implant placement appears similar-appeari ng. No pathologically enlarged lymph node is evident. ABDOMEN AND PELVIS: The hypodense lesion involving segment 5 of the right hepatic lobe is stable measuring approximately 1.3 to 1.4 cm. Diffuse fatty liver change is similar-appearing. Adrenal glands, pancreas, and splee n appear within normal limits. The kidneys appear within normal limits. No free fluid or enlarged lymph nodes are evident. A small amount of free fluid remains within the pelvis. This is slightly more pronounced than on the recent study dated 07/29/2018. There is a mild amount of retained stool within the colon. The small bowel is normal-appearing. Diffuse osseous metastatic disease is unchanged. No new pathologic fracture is evident. The healin g anterolateral right 8th rib fracture is similar-appearing. IMPRESSION: 1. Stable pulmonary, pleural-based, hepatic, and osseous metastatic disease. 2. Slightly increased free fluid in the pelvis is nonspecific. POS: [facility]
== END 2018-10-13 08:04 | disposition home or self-care (01) ==
LOC: BICCT 08:03
PROVIDERS: ATTEND Internal Medicine Hematology & Oncology
DX: C78.2 Secondary malignant neoplasm of pleura (principal); C50.111 Malignant neoplasm of central portion of right female breast; C79.51 Secondary malignant neoplasm of bone; C78.7 Secondary malignant neoplasm of liver and intrahepatic bile duct; C78.00 Secondary malignant neoplasm of unspecified lung
CPT/HCPCS: 71260; 74177; Q9966

== ENCOUNTER 2018-10-13 20:18 | Emergency (ER) | payer OTHER, SELFPAY ==
[2018-10-13 21:47] LABS: #Eosinphils 0.3 thou/uL (0.0-0.7); #Lymphocytes 0.8 thou/uL (1.20-3.40); #Monocytes 0.4 thou/uL (0.11-0.59); #Neutrophils 3.7 thou/uL (1.40-6.50); %Basophils 0.3 % (0.0-1.0); %Eosinophils 6.5 % (0.0-10.0); %Lymphocytes 14.8 % (21.0-51.0); %Monocytes 7.5 % (0.0-10.0); %Neutrophils 70.9 % (42.0-75.0); Hemoglobin 9.4 g/dL (12.0-16.0); Mean Corpuscular HGB CONC 31.1 g/dL (32.0-36.0); Mean Corpuscular Hemoglobin 23.6 pg (27.0-31.0); Mean Corpuscular Volume 75.7 fL (78.0-98.0); Mean Platelet Volume 8.3 fL (7.4-10.4); Platelet Count 394 thou/uL (130-400); RBC Distribution Width 17.4 % (11.5-14.5); Red Blood Cell (RBC) Count 3.97 mill/uL (4.20-5.40); White Blood Cell (WBC) Count 5.3 thou/uL (4.8-10.8)
[2018-10-13] MEDS ORDERED: Morphine 2 MG/ML SYRINGE ONE (21:47)
[2018-10-13] MEDS ORDERED: Morphine 4 MG/ML VIAL ONE ×2 (21:47→22:50)
--- NOTE | 2018-10-13 22:04 | RAD ---
LEFT HIP TWO VIEW: 10/13/18 HISTORY: Pain. COMPARISON: CT chest, abdomen and pelvis same day. FINDINGS: Multifocal osteoblastic and osteolytic foci are present throughout the skeleton. A pathologic fractur e is not appreciated. There is ingested contrast within the rectum. IMPRESSION: Extensive osteolytic and osteoblastic lesions. No pathologic fracture appreciated. POS: [facility]
[2018-10-13 22:06] LABS: Bilirubin Negative (Negative); Blood, Urine Negative (Negative); Clarity CLEAR (Clear); Glucose, Urine (Dipstick) Negative (Negative); Leukocyte Negative (Negative); Nitrite Negative (Negative); Protein, Urine (Dipstick) Negative (Neg-Trace); Specific Gravity, Urine 1.003 (1.002-1.036); Urobilinogen 0.2 mg/dL (0.2-1.0); pH, Urine 7.5 (5.0-9.0)
[2018-10-13 22:08] LABS: ALT (SGPT) 27 U/L (8-55); AST (SGOT) 40 U/L (5-34); Albumin 4.4 g/dL (3.5-5.0); Alkaline Phosphatase 168 U/L (40-150); Anion Gap 11 mmol/L (10-20); BUN (Urea Nitrogen) 6 mg/dL (7.0-18.7); Bilirubin, Total 0.2 mg/dL (0.2-1.2); Calc. Creatinine Clearance 0 mL/min (70-130); Calcium 9.7 mg/dL (7.8-10.44); Carbon Dioxide 31 mmol/L (22-29); Chloride 103 mmol/L (98-107); Estimated GFR-MDRD Greater than 90; Globulin 3.7 g/dL (2.4-3.5); Glucose 104 mg/dL (70-105); Protein, Total 8.1 g/dL (6.0-8.3); Sodium 141 mmol/L (136-145)
== END 2018-10-13 23:07 | disposition home or self-care (01) ==
LOC: ERS 20:18
DX: M25.552 Pain in left hip (principal); Z79.891 Long term (current) use of opiate analgesic; Z79.899 Other long term (current) drug therapy
CPT/HCPCS: 80053; 81003; 85025; 96361; 96374; 96376; J2270

== ENCOUNTER 2018-10-14 12:18 | Day surgery (SDC) | payer OTHER, SELFPAY ==
[2018-10-14 12:40] VITALS: BP 127/81; TEMP 98
== END 2018-10-14 12:41 | disposition home or self-care (01) ==
LOC: ONC/OP 12:18
PROVIDERS: ATTEND Internal Medicine Hematology & Oncology
DX: Z51.12 Encounter for antineoplastic immunotherapy (principal); C50.111 Malignant neoplasm of central portion of right female breast; C78.2 Secondary malignant neoplasm of pleura; C79.51 Secondary malignant neoplasm of bone; Z17.0 Estrogen receptor positive status [ER+]
CPT/HCPCS: 96372; J0897

== ENCOUNTER 2018-12-01 14:12 | Day surgery (SDC) | payer OTHER ==
[2018-12-01 14:26] VITALS: BP 141/80; TEMP 98.1
== END 2018-12-01 14:26 | disposition home or self-care (01) ==
LOC: ONC/OP 14:12
PROVIDERS: ATTEND Internal Medicine Hematology & Oncology
DX: Z51.12 Encounter for antineoplastic immunotherapy (principal); C50.111 Malignant neoplasm of central portion of right female breast; C78.2 Secondary malignant neoplasm of pleura; C79.51 Secondary malignant neoplasm of bone; Z17.0 Estrogen receptor positive status [ER+]
CPT/HCPCS: 96372; J0897

== ENCOUNTER 2018-12-29 09:38 | Day surgery (SDC) | payer OTHER ==
[2018-12-29 10:23] VITALS: BP 133/67; TEMP 97.8
== END 2018-12-29 10:23 | disposition home or self-care (01) ==
LOC: ONC/OP 09:38
PROVIDERS: ATTEND Internal Medicine Hematology & Oncology
DX: Z51.12 Encounter for antineoplastic immunotherapy (principal); C50.111 Malignant neoplasm of central portion of right female breast; C78.2 Secondary malignant neoplasm of pleura; C79.51 Secondary malignant neoplasm of bone
CPT/HCPCS: 96372; J0897

== ENCOUNTER 2019-01-19 09:40 | Outpatient (CLI) | payer OTHER, SELFPAY ==
--- NOTE | 2019-01-19 10:45 | CT ---
CT Chest Abd Pelvis W Con HISTORY: Breast cancer with metastatic disease. Right mastectomy with reconstruction and lymph node r emoved from neck area. Ovaries have been removed. Patient has had chemotherapy and radiation. Complaining of left hip pain. COMPARISON: 10/13/2018 study. FINDINGS: There is parenchymal scarring within the right upper lobe and new parenchymal changes exten ding from the left hilum to the anterior pleural surface of the left upper lobe anterior segment. This is a new finding. The pleural-based fluid density collection seen in a right paravertebral location on axial image 39 i s stable as compared to the prior examination it is probably loculated fluid. The right pleural effusion has increased in size as compared to the prior study. The right lower lobe superior segment pulmonary nodules seen on axial images 24 and 28 are stable in appearance. There is been development of a small left pleural effusion since the previous study. There is no significant mediastinal or hilar adenopathy. A right breast implant is present. Postopera tive changes of the right axilla are noted. CT of abdomen performed with intravenous contrast enhancement: There is worsening metastatic disease of the liver. There is a medial segment left lobe liver lesion measuring 3.6 cm. There is a smaller approximately 13 mm nodule directly adjacent to this there is also a right lobe liver nodule on axial image 46 measuring approximately 2.3 cm in size and also hypo dense masses involving the caudate lobe region. The spleen pancreas and gallbladder regions are normal. Right and left adrenal glands and right and left kidneys are normal in size. There is no significant periaortic or mesenteric lymphadenopathy. CT of pelvis performed with contrast enhancement there is some free fluid in the pelvis. No pelvic ly mphadenopathy or mass Review of osseous structures show extensive metastatic disease appear similar to the previous study. IMPRESSION: 1. Stable appearing small pulmonary nodules. Increasing size to bilateral pleural effusions and a new area of pleural-based nodularity in the left upper lobe anterior segment with linear change extending to the left hilum that was not present on the prior exam. 2. Worsening hepatic metastatic disease with extensive liver lesions now demonstrated. 3. Stable bone metastases.
== END 2019-01-19 09:41 | disposition home or self-care (01) ==
LOC: BICCT 09:40
PROVIDERS: ATTEND Internal Medicine Hematology & Oncology
DX: C50.111 Malignant neoplasm of central portion of right female breast (principal); C78.2 Secondary malignant neoplasm of pleura; C79.51 Secondary malignant neoplasm of bone; C78.7 Secondary malignant neoplasm of liver and intrahepatic bile duct; R91.8 Other nonspecific abnormal finding of lung field; J90 Pleural effusion, not elsewhere classified; K76.9 Liver disease, unspecified
CPT/HCPCS: 71260; 74177; Q9966

== ENCOUNTER 2019-01-26 10:51 | Day surgery (SDC) | payer OTHER ==
[2019-01-26 12:39] VITALS: BP 144/63; TEMP 98.1
== END 2019-01-26 12:40 | disposition home or self-care (01) ==
LOC: ONC/OP 10:51
PROVIDERS: ATTEND Internal Medicine Hematology & Oncology
DX: Z51.12 Encounter for antineoplastic immunotherapy (principal); C50.111 Malignant neoplasm of central portion of right female breast; C78.2 Secondary malignant neoplasm of pleura; C79.51 Secondary malignant neoplasm of bone
CPT/HCPCS: 96372; J0897

== ENCOUNTER 2019-01-29 10:46 | Outpatient (CLI) | payer OTHER ==
--- NOTE | 2019-01-29 13:23 | MRI ---
Exam: Left lower extremity MRI with and without IV contrast: Attention is made to the left hip and femur. HISTORY: Left hip pain and known bone metastasis COMPARISON: Chest abdomen and pelvic CT scan, 01/19/2019 Extensive bone metastasis are noted including both hips, proximal femurs, pelvis, sacrum, and lower l umbar spine. There is some scattered nonspecific fat stranding noted within the left and right gluteus eileen mus cles left gluteus medius muscle, piriformis muscles, right greater than left, and posterior lower lumbar back strap muscles, as well as the iliac is muscles bilaterally right greater than left and th e bilateral psoas muscles. There is no evidence for discrete intramuscular mass. These findings could represent extensive multiple muscle strain, or possibly nonspecific myositis. Minimal gluteal t endinopathy but no evidence for acute tendon injury. No evidence for trochanteric bursal abnormal fluid. Altered signal in the subchondral region of the left hip which may well represent edema from metastas is, the possibility of coexistent avascular necrosis would be difficult to exclude. IMPRESSION: Extensive bone metastasis. Fairly extensive diffuse heterogeneous intramuscular fat stranding, nonspecific. If there is clinical concern for pathologic fracture, this could probably be better evaluated with a follow-up focused CT of the area of clinical concern.
== END 2019-01-29 10:47 | disposition home or self-care (01) ==
LOC: BICMRI 10:46
PROVIDERS: ATTEND Internal Medicine Hematology & Oncology
DX: M25.552 Pain in left hip (principal); M79.652 Pain in left thigh; C79.51 Secondary malignant neoplasm of bone; C78.2 Secondary malignant neoplasm of pleura; C50.111 Malignant neoplasm of central portion of right female breast

== ENCOUNTER 2019-02-08 07:37 | Day surgery (SDC) | payer OTHER ==
[2019-02-05 16:19] VITALS: BMI 28.3
[2019-02-08 07:57] LABS: Hemoglobin 8.4 g/dL (12.0-16.0); Mean Corpuscular HGB CONC 29.6 g/dL (32.0-36.0); Mean Corpuscular Hemoglobin 23.6 pg (27.0-31.0); Mean Corpuscular Volume 79.7 fL (78.0-98.0); Mean Platelet Volume 8.5 fL (7.4-10.4); Platelet Count 221 thou/uL (130-400); RBC Distribution Width 18.1 % (11.5-14.5); Red Blood Cell (RBC) Count 3.54 mill/uL (4.20-5.40); White Blood Cell (WBC) Count 4.1 thou/uL (4.8-10.8)
[2019-02-08 08:04] LABS: INR-International Normal Ratio 1.1; PTT 29.3 SEC (22.9-36.1); Prothrombin Time 13.8 SEC (12.0-14.7)
[2019-02-08 08:18] LABS: Anisocytosis MODERATE=16-30 cells (100X) (0-5/hpf); Band 2 % (5-11); Eosinophils 10 % (0-10); Hypochromia SLIGHT = 6-15 cells (100X) (0-5/hpf); Lymphocytes 26 % (21-51); MDiff Complete? YES; Monocytes 8 % (0-10); Neutrophil 54 % (42-75); Platelet Morphology Comment Appears Adequate; Polychromasia SLIGHT = 2-3 cells (100X) (0-2/hpf)
[2019-02-08 09:32] VITALS: BP 121/91; TEMP 98
--- NOTE | 2019-02-08 12:50 | CT ---
CT Liver Perc Biopsy CT GUIDED LIVER BIOPSY: CLINICAL HISTORY: Metastatic disease, liver lesions of indeterminate etiology. PROCEDURE: Informed consent was obtained and the patient was escorted to the procedural suite, placed in supine position. Conscious sedation for a total of 45 minutes was performed, administered by the radiology nurse, with the patient consistently monitored throughout the duration of the exam in stable conditio n. The patient's skin was prepped and draped in a standard sterile fashion and topical anesthesia with buffered 1% lidocaine was performed. After a small skin incision was made, an 18-gauge needle we re advanced to the leading edge of the left hepatic lobe. After adequate placement was confirmed with CT fluoroscopic imaging, 3 subsequent core specimens were obtained via percutaneous biopsy. The se were confirmed with CT fluoroscopic imaging and the specimens were submitted to the pathologist for adequacy. Specimens were deemed adequate for interpretation by Dr. Campbell Garcia, of the patholog y department. Therefore, all devices were then removed from the patient. No unexpected procedural complications were present. The patient was monitored in radiology holding i n stable condition prior to discharge with family member. IMPRESSION: Technically successful percutaneous hepaticbiopsy. Pathology results are pending.
--- NOTE | 2019-02-08 14:40 | CT ---
CT OF LEFT FEMUR PERFORMED WITHOUT CONTRAST ENHANCEMENT: HISTORY: Patient with a history of breast cancer and metastatic bone disease with left femur pain. COMPARISON: A 01/19/2019 CT of the chest, abdomen, and pelvis and an MRI of the left hip and pelvis region of 2018. FINDINGS: There is evidence of mixed sclerotic bone metastases involving the pelvis and left femoral head and n eleuterio region. Prominent cystic change of the femoral head, but no underlying pathologic fracture. No soft tissue mass is appreciated or soft tissue edema change. IMPRESSION: Evidence of bony metastatic disease without evidence of pathologic fracture. POS: [facility]
== END 2019-02-08 14:45 | disposition home or self-care (01) ==
LOC: CT 07:37
PROVIDERS: ATTEND Internal Medicine Hematology & Oncology
PROC: BF251ZZ Computerized Tomography (CT Scan) of Liver using Low Osmolar Contrast (ICD-10-PCS; principal; 2019-02-08)
PROC: 0FB23ZX Excision of Left Lobe Liver, Percutaneous Approach, Diagnostic (ICD-10-PCS; principal; 2019-02-08)
DX: C78.7 Secondary malignant neoplasm of liver and intrahepatic bile duct (principal); C78.2 Secondary malignant neoplasm of pleura; C79.51 Secondary malignant neoplasm of bone; C50.911 Malignant neoplasm of unspecified site of right female breast; J45.909 Unspecified asthma, uncomplicated; Z17.0 Estrogen receptor positive status [ER+]; Z79.899 Other long term (current) drug therapy
CPT/HCPCS: 36415; 47000; 77012; 85025; 85610; 85730; 88307; 88313; 88341; 88342; 88361

== ENCOUNTER 2019-02-17 16:43 | Inpatient (IN) | payer OTHER ==
[2019-02-17 17:26] LABS: #Eosinphils 0.2 thou/uL (0.0-0.7); #Monocytes 0.7 thou/uL (0.11-0.59); #Neutrophils 2.7 thou/uL (1.40-6.50); %Basophils 0.5 % (0.0-1.0); %Eosinophils 3.3 % (0.0-10.0); %Lymphocytes 22.6 % (21.0-51.0); %Monocytes 14.4 % (0.0-10.0); %Neutrophils 59.2 % (42.0-75.0); Hemoglobin 5.8 g/dL (12.0-16.0); Mean Corpuscular HGB CONC 30.9 g/dL (32.0-36.0); Mean Corpuscular Hemoglobin 25.2 pg (27.0-31.0); Mean Corpuscular Volume 81.7 fL (78.0-98.0); Mean Platelet Volume 8.7 fL (7.4-10.4); Platelet Count 231 thou/uL (130-400); RBC Distribution Width 19.9 % (11.5-14.5); White Blood Cell (WBC) Count 4.6 thou/uL (4.8-10.8)
[2019-02-17] MEDS ORDERED: Pantoprazole 80 MG in Sodium Chloride 0.9% 100 ML IVPB SCH (17:30)
[2019-02-17 17:46] LABS: ALT (SGPT) 53 U/L (8-55); AST (SGOT) 99 U/L (5-34); Albumin 3.8 g/dL (3.5-5.0); Alkaline Phosphatase 279 U/L (40-150); Anion Gap 13 mmol/L (10-20); BUN (Urea Nitrogen) 8 mg/dL (7.0-18.7); Bilirubin, Total 0.6 mg/dL (0.2-1.2); Calc. Creatinine Clearance 0 mL/min (70-130); Calcium 8.6 mg/dL (7.8-10.44); Carbon Dioxide 25 mmol/L (22-29); Chloride 105 mmol/L (98-107); Estimated GFR-MDRD Greater than 90; Globulin 3.1 g/dL (2.4-3.5); Glucose 104 mg/dL (70-105); Magnesium 2.5 mg/dL (1.6-2.6); Potassium 3.5 mmol/L (3.5-5.1); Protein, Total 6.9 g/dL (6.0-8.3); Sodium 139 mmol/L (136-145)
[2019-02-17 17:52] LABS: Hypochromia SLIGHT = 6-15 cells (100X) (0-5/hpf); MDiff Complete? YES; Microcytosis SLIGHT = 6-15 cells (100X) (0-5/hpf); Ovalocytes SLIGHT = 2-5 cells (100X) (0-1/hpf); Platelet Morphology Comment Appears Adequate; Polychromasia SLIGHT = 2-3 cells (100X) (0-2/hpf); Tear Drops SLIGHT = 2-5 cells (100X) (0-1/hpf)
[2019-02-17 19:47] LABS: Bilirubin Negative (Negative); Blood, Urine Negative (Negative); Clarity Clear (Clear); Glucose, Urine (Dipstick) Normal (Negative); Leukocyte Negative Leu/uL (Negative); Nitrite Negative (Negative); Protein, Urine (Dipstick) Negative (Neg-Trace); Urobilinogen Normal mg/dL (Less than 2)
[2019-02-17] MEDS ORDERED: Simethicone Chewable 80 MG TAB PO PRN (22:31)
[2019-02-17] MEDS ORDERED: Acetaminophen 325 MG TAB PO PRN (22:47)
[2019-02-17] MEDS ORDERED: Acetaminophen 650 MG Suppository PR PRN (22:47)
--- NOTE | 2019-02-17 23:28 | HP ---
PRIMARY CARE PHYSICIAN: The patient has no PCP. CODE STATUS: Full code. TIME OF EVALUATION: 9:35 a.m. CHIEF COMPLAINT: Dizziness and feeling lightheaded. HISTORY OF PRESENT ILLNESS: A 39 years old female patient with past medical history of right breast metastatic cancer, has been treated with chemotherapy and radiation. The patient follows with Dr. Duran, came to the hospital after feeling lightheaded associate with feeling tired, generalized weakness with no clear triggers, no alleviating factors . The patient also have had melenic stool for about 3 months and it has been on and off. Labs were done in the ER. The patient was found to severe anemia, symptoms were mild to moderate. REVIEW OF SYSTEMS: CONSTITUTIONAL: No fever, chills. GENERAL: The patient has no fevers or chills. The patient does have generalized weakness, fatigue. RESPIRATORY: No cough, sputum production, or shortness of breath. CARDIOVASCULAR: No chest pain or palpitation. GASTROINTESTINAL: The patient has black stools and nausea. No vomiting or diarrhea. The patient has on and off abdominal pain. MANAGER EPIC: The patient has been feeling dizzy, lightheaded. No headache. GENITOURINARY: No burning on urination. EXTREMITIES: No leg swelling. All other systems were reviewed and negative except for the findings mentioned above. PAST MEDICAL HISTORY: Positive for the findings mentioned in the HPI. PAST SURGICAL HISTORY: Right mastectomy with reconstruction, bilateral ovary removal, multiple biopsy. PSYCHIATRIC HISTORY: No previous psych history. SOCIAL HISTORY: No drugs. No alcohol. No smoking history. The patient lives at home with son. ALLERGIES: NO KNOWN DRUG ALLERGIES REPORTED. MEDICATIONS: 1. Afinitor. 2. Aromasin. 3. [place]. 4. Colace. 5. . PHYSICAL EXAMINATION: VITAL SIGNS: On presentation heart rate 118, temperature 98.8, oxygen saturation 100 on room air, blood pressure 137/90. GENERAL APPEARANCE: The patient is alert, oriented, not in acute distress. HEENT: Eyes, normal conjunctivae. Moist oral mucosa. Anicteric. NECK: No JVD. RESPIRATORY: Bilateral air entry. No rales or wheezes. Symmetric expansion. CARDIOVASCULAR: The patient is tachycardic. Regular rhythm. No murmurs. No gallop. No edema. ABDOMEN: Soft. Normal bowel sounds. MUSCULOSKELETAL: Baseline range of motion and strength. SKIN: Warm, intact. The patient has pale mucosae. No redness. Capillary refill seems to be intact. NEURO: No evidence of any new focal weakness. Cranial nerves seems to be intact. PSYCH: The patient is in good mood. No anxiety. Optimal judgment. DIAGNOSTIC DATA: EKG was reviewed. The patient has sinus tachycardia at the rate of 110. No other evidence of any acute ischemic events. LABORATORY DATA: Reviewed. The patient has white count 4.6, hemoglobin 5.8, MCV 81, platelet count 231. Sodium 139, potassium 3.5, chloride 105, carbon dioxide 25, anion gap 13, BUN 8, creatinine 0.8. GFR greater than 90, glucose 104, calcium 9.6, magnesium 2.5, bilirubin 0.6. LFTs were negative. Alkaline phosphatase mildly elevated 279. Troponin was negative. Serum total protein 6.9, albumin 3.8. Urine was done was negative. ASSESSMENT AND PLAN: The patient will be placed in the hospital with following medical problems: 1. Severe symptomatic anemia, likely due to [id number] blood loss due to gastrointestinal bleeding. The patient is receiving 2 packed red blood cells. We will continue to monitor hemoglobin. We will transfuse as needed. We will give hydration to keep hemodynamics. Gastroenterology has been consulted. We will continue Protonix. N.p.o. for any possible procedure. 2. History of breast cancer. The patient follows with Dr. Duran. She has been receiving chemotherapy, has history of radiation and radiation colitis. 3. Deep venous thrombosis prophylaxis. Job ID: [id number]
[2019-02-17] MEDS: ALPRAZolam 0.5 MG TAB PO PRN (23:42)
[2019-02-18] MEDS: HYDROcodone/Acetaminophen 10/325 mg Tablet PO PRN ×2 (02:21→07:15)
[2019-02-18] MEDS ORDERED: Pantoprazole 80 MG in Sodium Chloride 0.9% 100 ML IVPB SCH (03:00)
[2019-02-18 05:58] LABS: Anion Gap 8 mmol/L (10-20); BUN (Urea Nitrogen) 9 mg/dL (7.0-18.7); Calc. Creatinine Clearance 126 mL/min (70-130); Calcium 8.7 mg/dL (7.8-10.44); Carbon Dioxide 27 mmol/L (22-29); Chloride 108 mmol/L (98-107); Estimated GFR-MDRD Greater than 90; Glucose 89 mg/dL (70-105); Potassium 4.1 mmol/L (3.5-5.1); Sodium 139 mmol/L (136-145)
[2019-02-18 06:23] LABS: Anisocytosis SLIGHT = 6-15 cells (100X) (0-5/hpf); Band 10 % (5-11); Eosinophils 2 % (0-10); Hemoglobin 8.7 g/dL (12.0-16.0); Lymphocytes 28 % (21-51); MDiff Complete? YES; Mean Corpuscular HGB CONC 33.3 g/dL (32.0-36.0); Mean Corpuscular Hemoglobin 27.5 pg (27.0-31.0); Mean Corpuscular Volume 82.6 fL (78.0-98.0); Mean Platelet Volume 8.5 fL (7.4-10.4); Monocytes 4 % (0-10); Neutrophil 56 % (42-75); Platelet Count 175 thou/uL (130-400); Platelet Morphology Comment Appears Adequate; RBC Distribution Width 17.6 % (11.5-14.5); Red Blood Cell (RBC) Count 3.15 mill/uL (4.20-5.40); White Blood Cell (WBC) Count 4.5 thou/uL (4.8-10.8)
[2019-02-18] MEDS: METHadone HCl 10 MG TAB PO SCH ×2 (08:30→20:26)
[2019-02-18] MEDS ORDERED: Prevnar 13-Val Conj/PF 0.5 ML SYRINGE IM ONE (09:00)
[2019-02-18] MEDS ORDERED: Morphine 4 MG/ML VIAL SLOW IVP PRN (13:09)
[2019-02-18] MEDS ORDERED: Fentanyl 100 MCG/2 ML VIAL ONE ×2 (13:41→16:14)
[2019-02-18] MEDS ORDERED: Albuterol Sulfate HFA (OR ONLY) ONE (14:51)
[2019-02-18] MEDS ORDERED: Hydrocortisone Sod Succ/PF 100 mg/2 ml Vial ONE (15:27)
[2019-02-18] MEDS ORDERED: Propofol 1,000 MG/100 ML VIAL IV ONE (16:09)
--- NOTE | 2019-02-18 16:10 | CON ---
DATE OF CONSULTATION: 02/18/2019 REASON FOR CONSULTATION: Anemia, possible melena. HISTORY OF PRESENT ILLNESS: Ms. Guallpa is a 39-year-old female with known metastatic breast cancer to liver and bone. She continues on chemotherapy and she has recently had radiation to the bone metastasis. More recently, she was sent over for admission from Dr. Duran's office for severe anemia and lightheadedness. She does have dark stools at times, but she states they are not black. This has been on and off for about the past 3 months. She has had issues with her bowel movements. She seems to be very constipated. Mainly, she feels it is related to her narcotic pain medications. The patient has had no hematemesis. She has been using some NSAIDs at times and on PPIs at home. PAST MEDICAL HISTORY: Metastatic breast cancer to bone and liver; previous right mastectomy reconstruction; bilateral oophorectomy; previous EGD in August 2017, normal; previous colonoscopy in July of this year with ischemic colitis related to the radiation effect. ALLERGIES: NONE KNOWN. SOCIAL HISTORY: Negative for alcohol or tobacco. 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 MEDICATIONS: At home, 1. Aromasin. 2. [place]. 3. Colace. 4. Afinitor. 5. Hydrocodone. 6. Methadone. 7. Simethicone. 8. Xanax. Medications here, 1. Tylenol. 2. Xanax. 3. Afinitor. 4. Aromasin. 5. Hurricane. 6. Methadone. 7. Morphine. 8. Protonix drip. 9. Mylicon. REVIEW OF SYSTEMS: No chest pain, shortness of breath, dysphagia, odynophagia, or hematemesis. She does have constipation. She feels gassy at times after eating. She gets cramps at times. PHYSICAL EXAMINATION: GENERAL: The patient is alert and oriented since she is here. She had a family member at the bedside with her. VITAL SIGNS: Temperature is 98, pulse 79, respirations 16, O2 saturation 100%, blood pressure 138/78. HEENT: Conjunctivae and sclerae are slightly pale. LUNGS: Clear. HEART: Regular without clicks, rubs, or murmurs. ABDOMEN: Soft and nontender. No rebound or guarding. EXTREMITIES: No clubbing, cyanosis, or edema. LABORATORY STUDIES: Hemoglobin was 6.2 yesterday at 1230 hours when she was sent to the ER and she was 5.8 in the ER. White count was 4.6. Platelet count was 23,000. After she received 2 units of blood, her hemoglobin was 8.7, white count 4.5, platelet count 175. INR 1.1. Sodium 139, potassium 4.1, bicarb 27, chloride 109, BUN and creatinine are 9 and 0.69. Liver function tests are normal except for an AST of 99, ALT of 53, and alkaline phosphatase of 279. On 01/26, her CA 27-29 was 257 up from 161 on 12/29/2018. ASSESSMENT AND PLAN: 1. Metastatic breast cancer widely. 2. Anemia. This may be multifactorial related to chemotherapy and radiation. She has had some radiation related issues in the past. She has been using her nonsteroidal anti-inflammatory drugs. She reports she is having no further problems with diarrhea or rectal bleeding. In fact, more problem she has is the constipation. She has noted her stools to be darker recently, but not overly melenic. Her BUN is low at 9, which is not indicative of a large upper gastrointestinal bleed. She has been using some nonsteroidal anti-inflammatory drugs. We discussed the risks, benefits, and possible complications of endoscopy including perforation, reaction to medication, and aspiration. We will go ahead and proceed with that as she has dropped her hemoglobin fairly significantly recently and she has had some darker stools, and she has been taking some nonsteroidal anti-inflammatory drugs. All are risk factors for gastrointestinal blood loss. At this time, I see no need to repeat her lower exam. 3. I would recommend a bowel regimen with MiraLAX and Senokot daily. MiraLAX once a day with Senokot b.i.d. would be good. Alternatively, she could be given Movantik. However, she states that is too expensive for her. Job ID: [id number]
--- NOTE | 2019-02-18 16:20 | OP ---
DATE OF PROCEDURE: 02/18/2019 PREPROCEDURE DIAGNOSES: 1. Anemia. 2. Metastatic breast cancer. 3. History of ischemic enteropathy. 4. Dark stools recently. POSTPROCEDURE DIAGNOSES: 1. Normal esophagus. 2. Mild erythema and neovascularization of the antrum, it is unclear if this is related to radiations. Slight oozing, one area of ulceration, 3 mm in size in the prepyloric antrum with visible vessel. PROCEDURES PERFORMED: Esophagogastroduodenoscopy with control of bleeding with injection of 1:10,000 epinephrine 2 mL and heater probe cautery. ANESTHESIA: TIVA converted to general endotracheal anesthesia. PROCEDURE IN DETAIL: The patient was informed of the risks, benefits, and possible complications of endoscopy including perforation, reaction to medication, aspiration, and informed consent was obtained. The patient was brought to endoscopy suite, where she was sedated in gradual fashion. Once she was comfortable, bite block was placed inside the orifice. The endoscope was advanced through the esophagus, stomach, and the second and third portions of the duodenum. The esophagus was normal. The stomach was notable for a little bit of scant blood. This was suctioned away and there seemed to be a slight oozing in the antrum. There was lot of foam and bile, this was irrigated and suctioned away. The patient did have a coughing spell and slight desaturation, and we removed the scope. The patient was bag masked decision was made to go ahead and intubate the patient, which Anesthesia did for better airway control. The scope was then reintroduced in the esophagus, stomach, and duodenum. In the pre-pyloric antrum, there was submucosal neovascularization with oozing. Photodocumentation was obtained. There was one small ulcer about 5 mm in size with black based pigment with possible visible vessel, but no active bleeding. This was injected with 1:10,000 epinephrine and then a 7-[place] heater probe was used to cauterize that area and then some areas of oozing in the prepyloric antrum. The duodenum was entered and found to be normal. The scope was brought back to the stomach, and forward and retroflexed views were normal. There was no active bleeding. The scope was removed. The patient tolerated the procedure well. There were no complications. RECOMMENDATIONS: PPI orally once daily. Monitor hemoglobin. Job ID: [id number]
[2019-02-18 16:42] LABS: Actual Bicarbonate (HCO3a) 22.8 mEq/L (22-28); Base Excess (BEa) -4.4 mEq/L (-2.0 to +3.0); CO2 Tension 52.3 mmHg (35.0-45.0); Calcium, Ionized 1.08 mmol/L (1.12-1.30); Carboxyhemoglobin (COHb) 0.4 gm% (0.0-3.0); Hemoglobin (Hb) 9.9 g/dL (12.0-16.0); O2 Tension (PaO2) 113.5 mmHg (80.0-100.0); Potassium - ABG Lab 3.06 mmol/L (3.70-5.30); pH, Arterial 7.26 (7.35-7.45)
[2019-02-18 16:44] LABS: Puncture Site LBA
[2019-02-18 16:45] LABS: ALV-art Gradient 84.935 (0-20)
[2019-02-18] MEDS ORDERED: Lorazepam 2 MG/ML VIAL ONE (16:45)
[2019-02-18] MEDS ORDERED: Fentanyl BOLUS 250 ML IVPB PRN (16:55)
[2019-02-18] MEDS ORDERED: DISCONTINUE PREVIOUS NARCOTIC PAIN MEDICATIONS AND BENZODIAZEPINES FS SCH (16:55)
[2019-02-18] MEDS ORDERED: Morphine 2 MG/ML SYRINGE SLOW IVP PRN (16:55)
[2019-02-18] MEDS: Fentanyl 100 MCG/2 ML VIAL SLOW IVP SCH ×2 (16:55→17:58)
[2019-02-18] MEDS ORDERED: Propofol 1,000 MG/100 ML VIAL IV PRN (16:55)
[2019-02-18] MEDS ORDERED: Lorazepam 2 MG/ML VIAL SLOW IVP PRN (16:55)
[2019-02-18] MEDS ORDERED: Propofol BOLUS 1,000 MG/100 ML VIAL IV PRN (16:55)
[2019-02-18] MEDS ORDERED: fentaNYL Citrate/PF 2,000 MCG in Sodium Chloride 0.9% 60 ML IV SCH (16:55)
[2019-02-18] MEDS ORDERED: predniSONE 20 MG TAB PO SCH (17:30)
[2019-02-18] MEDS: Piperacillin/Tazobactam 3.375 GM in Sodium Chloride 0.9% 100 ML IVPB SCH ×2 (17:59→23:10)
--- NOTE | 2019-02-18 18:02 | RAD ---
PORTABLE CHEST: 02/18/19 INDICATIONS: Laryngospasm. Post intubation. ET tube has been placed. The tip is at the darrick and should be retracted. Lungs appear clear. Soft tissue breast attenuation is seen on the right. IMPRESSION: No acute lung process. ET tube is at the darrick and should be retracted. POS: [facility]
[2019-02-18] MEDS ORDERED: methylPREDNISolone Sod Succ 40 MG VIAL IVP SCH (18:15)
[2019-02-18] MEDS: Exemestane 25 MG TAB PO SCH (20:26)
[2019-02-18] MEDS: Pantoprazole 40 MG VIAL IVP SCH (20:36)
--- NOTE | 2019-02-19 00:45 | CON ---
DATE OF CONSULTATION: 02/18/2019 SERVICE: Pulmonary Medicine. REASON FOR CONSULTATION: ICU patient. HISTORY OF PRESENT ILLNESS: The patient is a 39-year-old female with past medical history significant for feeling lightheaded and dizzy. She was having some melena. Ultimately, she presented to the emergency department. She was discovered to have a GI bleed. She went for semi-elective procedure. During the procedure , she had a laryngospasm. She ultimately required intubation. She was difficult to ventilate. There were reports that she had severe bronchospasm. She has no known lung problems that we are aware of. She had no complaints of chills or fever on presentation to the emergency department. A little bit of gastritis and possibly a spot that was bleeding was identified. Epinephrine was applied. The patient has been placed on Protonix twice daily. She started having frothy secretions from the endotracheal tube, so they elected to keep her intubated and took her into the ICU for one evening to left some of the dust settle. PAST MEDICAL HISTORY: 1. Breast cancer. 2. Gastritis. PAST SURGICAL HISTORY: 1. Right mastectomy with subsequent reconstruction. 2. Bilateral oophorectomy. SOCIAL HISTORY: Negative for alcohol, tobacco, or illicit drug use. She lives at home with her son. 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 FAMILY HISTORY: Noncontributory. ALLERGIES: NO KNOWN DRUG ALLERGIES. MEDICATIONS: List of her inpatient medications was reviewed. Multiple small updates were made. REVIEW OF SYSTEMS: Cannot be obtained as the patient is currently intubated. She is requiring a little bit of sedation. PHYSICAL EXAMINATION: HEENT: Normocephalic and atraumatic. Sclerae white. Conjunctivae pink. Oral mucosa is moist without lesions. LUNGS: Decent air entry. There are some crackles present. There is a prolonged expiratory phase, but I do not hear any polyphonic wheezing. HEART: Normal rate. Regular. ABDOMEN: Soft, nontender, and nondistended. Bowel sounds are positive. MUSCULOSKELETAL: No cyanosis or clubbing. No pitting in the bilateral lower extremities. NEUROLOGIC: Grossly nonfocal. She is moving all 4 extremities, cough, overbreathes with ventilator, follows commands. LABORATORY DATA: WBC 4.5, hemoglobin 8.7 following transfusion of 2 units, platelets 175,000. Band count is 10% on top of 56% neutrophils. PH 7.26, pCO2 of 52, pO2 of 113. Basic metabolic profile is unremarkable. Liver function studies are, otherwise, unremarkable. Alkaline phosphatase 279, AST 99. Troponin is negative x1. Urinalysis is unremarkable. Occult blood was positive. ASSESSMENT: 1. Acute blood loss anemia. 2. Gastritis with possible radiation changes, status post epinephrine injection at 1 area of punctate changes. 3. Negative pressure pulmonary edema secondary to laryngospasm, suspected. DISCUSSION AND PLAN: We will leave on mechanical ventilation. I will give her a good PEEP. We will wean FiO2 away as tolerated. We will schedule some nebulized medications. Tomorrow morning, we will make certain that the patient has a very good cuff leak. If she meets criteria, extubation will be considered. We will perform a chest x-ray to make certain that she does not fluffed out her lungs to any significant degree. Critical care time: 30 minutes. Job ID: [id number] MTDD
[2019-02-19] MEDS: Piperacillin/Tazobactam 3.375 GM in Sodium Chloride 0.9% 100 ML IVPB SCH ×4 (05:07→22:38)
[2019-02-19 05:34] LABS: #Lymphocytes 0.6 thou/uL (1.20-3.40); #Monocytes 0.1 thou/uL (0.11-0.59); #Neutrophils 5.6 thou/uL (1.40-6.50); %Eosinophils 0.4 % (0.0-10.0); %Lymphocytes 8.9 % (21.0-51.0); %Neutrophils 88.7 % (42.0-75.0); Hemoglobin 8.8 g/dL (12.0-16.0); Mean Corpuscular HGB CONC 32.9 g/dL (32.0-36.0); Mean Corpuscular Hemoglobin 27.5 pg (27.0-31.0); Mean Corpuscular Volume 83.5 fL (78.0-98.0); Mean Platelet Volume 8.7 fL (7.4-10.4); Platelet Count 192 thou/uL (130-400); RBC Distribution Width 17.6 % (11.5-14.5); Red Blood Cell (RBC) Count 3.22 mill/uL (4.20-5.40); White Blood Cell (WBC) Count 6.3 thou/uL (4.8-10.8)
--- NOTE | 2019-02-19 08:02 | RAD ---
XR Chest 1 View Portable HISTORY: Respiratory failure COMPARISON: 02/18/2019 FINDINGS: Endotracheal position is unchanged and close to the darrick. The heart size is normal. The l ungs are well expanded without focal areas of consolidation, pneumothorax or pleural effusions. IMPRESSION: Stable exam.
[2019-02-19] MEDS: predniSONE 20 MG TAB PO SCH (09:33)
[2019-02-19] MEDS: METHadone HCl 10 MG TAB PO SCH ×2 (09:35→19:20)
[2019-02-19] MEDS: Pantoprazole 40 MG VIAL IVP SCH (09:36)
--- NOTE | 2019-02-19 09:46 | PRG ---
DATE OF SERVICE: 02/19/2019 SERVICE: Pulmonary Medicine. INTERVAL HISTORY: Overnight, the patient did not have any significant events. Her hemoglobin has been stable. She does not have any nausea or vomiting. Otherwise, she is returning to her usual state of health. Oxygen requirements have been decreased down to 21% FiO2. She seems to be breathing pretty comfortably. I dropped her cuff, she demonstrated decent leak. PHYSICAL EXAMINATION: VITAL SIGNS: Afebrile, pulse 112, blood pressure 124/60, respirations 16, and saturation 96% on room air. GENERAL: The patient is awake and alert, in no apparent distress. LUNGS: Decent air entry. No prolonged expiratory phase is present. I do not appreciate any crackling. HEART: Normal rate, regular. ABDOMEN: Nontender, nondistended. Bowel sounds are positive. MUSCULOSKELETAL: No cyanosis or clubbing. No pitting in bilateral lower extremities. NEUROLOGIC: Grossly nonfocal. LABORATORY DATA: WBC 6.3, hemoglobin 8.8 and stable, and platelets 192,000. ASSESSMENT: 1. Acute blood loss anemia. 2. Gastritis with possible radiation changes. 3. Negative pressure pulmonary edema secondary to laryngospasm, mild. DISCUSSION AND PLAN: The patient will be placed on a spontaneous breathing trial. If she meets criteria, extubation will be considered. Pulmonary/Critical Care will continue to follow along. If she looks good into the afternoon, she can be considered for transition to the medical unit. Job ID: [id number]
[2019-02-19] MEDS: HYDROcodone/Acetaminophen 10/325 mg Tablet PO PRN ×2 (11:20→19:59)
[2019-02-19 12:14] VITALS: BMI 28.5
--- NOTE | 2019-02-19 14:27 | PDOC.HOSPP ---
- Subjective Subjective: pt intubated - Objective Vital Signs & Weight: Vital Signs (12 hours) Temp Pulse Resp BP BP Pulse Ox 02/19/19 13:32 100 12 02/19/19 13:23 98 F 109 H 96 02/19/19 11:53 99 02/19/19 11:40 100 F H 108 H 18 139/86 99 02/19/19 08:05 98 02/19/19 07:35 112 H 16 96 02/19/19 07:20 98.9 F 02/19/19 07:04 97 124/60 02/19/19 06:00 13 02/19/19 04:00 98.8 F 13 02/19/19 02:33 105 H Weight Admit Weight 159 lb 6.307 oz Weight 160 lb 14.999 oz Most Recent Monitor Data Heart Rate from ECG 109 NIBP 123/89 NIBP BP-Mean 100 Respiration from ECG 19 SpO2 98 I&O: 02/18/19 02/19/19 02/20/19 06:59 06:59 06:59 Intake Total 800 1065 345 Output Total 1100 540 Balance 800 -35 -195 Result Diagrams: 02/19/19 04:42 02/18/19 05:18 ROS - Review of Systems All systems: All other ROS were reviewed and found negative. Other: unable to perform - Medication Medications: Active Medications Generic Name Dose Route Start Last Admin Trade Name Freq PRN Reason Stop Dose Admin Hydrocodone Bitart/Acetaminophen 1 tab 02/17/19 22:31 02/19/19 11:20 [place] 10/325 PO 1 tab Q4HR PRN Administration Pain Albuterol/Ipratropium 3 ml 02/18/19 19:00 02/19/19 13:32 Duoneb NEB 3 ml [id number] ODILON Administration Alprazolam 0.5 mg 02/17/19 22:31 02/17/19 23:42 Xanax PO 0.5 mg HS PRN Administration Anxiety Exemestane 25 mg 02/18/19 21:00 02/18/19 20:26 Aromasin PO Not Given HS ODILON Fentanyl Citrate 2,000 mcg/ 100 mls @ 0 mls/hr 02/18/19 16:55 02/18/19 18:23 Sodium Chloride IV 03/20/19 16:55 100 mls INF ODILON Administration Protocol Per Protocol Piperacillin Sod/Tazobactam 100 mls @ 200 mls/hr 02/18/19 18:00 02/19/19 11: 43 Sod 3.375 gm/ Sodium Chloride IVPB 100 mls Q6HR ODILON Administration Methadone HCl 5 mg 02/18/19 09:00 02/19/19 09:35 Dolophine Hcl PO Not Given BID ODILON Pantoprazole Sodium 40 mg 02/18/19 21:00 02/19/19 09:36 Protonix IVP 40 mg Q12HR ODILON Administration Prednisone 40 mg 02/19/19 08:00 02/19/19 09:33 Prednisone PO 02/20/19 08:01 40 mg QAM-WM ODILON Administration Propofol 1,000 mg 02/18/19 16:55 02/19/19 00:14 Diprivan IV 03/20/19 16:55 1,000 mg INF PRN Administration TO ACHIEVE GOAL RASS Protocol Sodium Chloride 10 ml 02/18/19 10:48 02/18/19 20:36 Flush - Normal Saline IVF 10 ml PRN PRN Administration Saline Flush - Exam Neck: negative: supple, symmetric, no JVD, no Thyromegaly, no lymphadenopathy, no carotid bruit, JVD Heart: negative: RRR, no murmur, no gallops, no rubs, normal peripheral pulses, irregular, diminshed peripheral pulses, murmur present, II/IV, III/IV Respiratory: negative: CTAB, no wheezes, no rales, no ronchi, normal chest expansion, no tachypnea, normal percussion, rales, rhonchi, tachypneic, wheezes Gastrointestinal: negative: soft, non-tender, non-distended, normal bowel sounds , no palpable masses, no hepatomegaly, no splenomegaly, no bruit, tender to palpation, distended, diminished bowl sounds, voluntary guarding Hosp A/P (1) Acute respiratory failure Code(s): J96.00 - ACUTE RESPIRATORY FAILURE, UNSP W HYPOXIA OR HYPERCAPNIA Status: Acute (2) Anemia Code(s): D64.9 - ANEMIA, UNSPECIFIED Status: Chronic (3) Acute blood loss anemia Code(s): D62 - ACUTE POSTHEMORRHAGIC ANEMIA Status: Acute (4) Malignant neoplasm of female breast Code(s): C50.919 - MALIGNANT NEOPLASM OF UNSP SITE OF UNSPECIFIED FEMALE BREAST Status: Chronic - Plan pt had EGD indicated mild gastritis and oozing bood vessel. pt could not be extubated possible due to laryngospasm. will monitor. Hh is stable.
--- NOTE | 2019-02-19 14:31 | PDOC.HOSPP ---
- Subjective Subjective: pt up in bed no complains - Objective Vital Signs & Weight: Vital Signs (12 hours) Temp Pulse Resp BP BP Pulse Ox 02/19/19 13:32 100 12 02/19/19 13:23 98 F 109 H 96 02/19/19 11:53 99 02/19/19 11:40 100 F H 108 H 18 139/86 99 02/19/19 08:05 98 02/19/19 07:35 112 H 16 96 02/19/19 07:20 98.9 F 02/19/19 07:04 97 124/60 02/19/19 06:00 13 02/19/19 04:00 98.8 F 13 02/19/19 02:33 105 H Weight Admit Weight 159 lb 6.307 oz Weight 160 lb 14.999 oz Most Recent Monitor Data Heart Rate from ECG 109 NIBP 123/89 NIBP BP-Mean 100 Respiration from ECG 19 SpO2 98 I&O: 02/18/19 02/19/19 02/20/19 06:59 06:59 06:59 Intake Total 800 1065 345 Output Total 1100 540 Balance 800 -35 -195 Result Diagrams: 02/19/19 04:42 02/18/19 05:18 ROS - Review of Systems All systems: All other ROS were reviewed and found negative. Respiratory: denies: cough, dry, shortness of breath, hemoptysis, SOB with excertion, pleuritic pain, sputum, wheezing, other Cardiovascular: denies: chest pain, palpitations, orthopnea, paroxysmal noc. dyspnea, edema, light headedness, other Gastrointestinal: denies: nausea, vomitting, abdominal pain, diarrhea, constipation, melena, hematochezia, other - Medication Medications: Active Medications Generic Name Dose Route Start Last Admin Trade Name Freq PRN Reason Stop Dose Admin Hydrocodone Bitart/Acetaminophen 1 tab 02/17/19 22:31 02/19/19 11:20 [place] 10/325 PO 1 tab Q4HR PRN Administration Pain Albuterol/Ipratropium 3 ml 02/18/19 19:00 02/19/19 13:32 Duoneb NEB 3 ml [id number] ODILON Administration Alprazolam 0.5 mg 02/17/19 22:31 02/17/19 23:42 Xanax PO 0.5 mg HS PRN Administration Anxiety Exemestane 25 mg 02/18/19 21:00 02/18/19 20:26 Aromasin PO Not Given HS ODILON Fentanyl Citrate 2,000 mcg/ 100 mls @ 0 mls/hr 02/18/19 16:55 02/18/19 18:23 Sodium Chloride IV 03/20/19 16:55 100 mls INF ODILON Administration Protocol Per Protocol Piperacillin Sod/Tazobactam 100 mls @ 200 mls/hr 02/18/19 18:00 02/19/19 11: 43 Sod 3.375 gm/ Sodium Chloride IVPB 100 mls Q6HR ODILON Administration Methadone HCl 5 mg 02/18/19 09:00 02/19/19 09:35 Dolophine Hcl PO Not Given BID ODILON Pantoprazole Sodium 40 mg 02/18/19 21:00 02/19/19 09:36 Protonix IVP 40 mg Q12HR ODILON Administration Prednisone 40 mg 02/19/19 08:00 02/19/19 09:33 Prednisone PO 02/20/19 08:01 40 mg QAM-WM ODILON Administration Propofol 1,000 mg 02/18/19 16:55 02/19/19 00:14 Diprivan IV 03/20/19 16:55 1,000 mg INF PRN Administration TO ACHIEVE GOAL RASS Protocol Sodium Chloride 10 ml 02/18/19 10:48 02/18/19 20:36 Flush - Normal Saline IVF 10 ml PRN PRN Administration Saline Flush - Exam Neck: negative: supple, symmetric, no JVD, no Thyromegaly, no lymphadenopathy, no carotid bruit, JVD Heart: negative: RRR, no murmur, no gallops, no rubs, normal peripheral pulses, irregular, diminshed peripheral pulses, murmur present, II/IV, III/IV Respiratory: negative: CTAB, no wheezes, no rales, no ronchi, normal chest expansion, no tachypnea, normal percussion, rales, rhonchi, tachypneic, wheezes Hosp A/P (1) Acute respiratory failure Code(s): J96.00 - ACUTE RESPIRATORY FAILURE, UNSP W HYPOXIA OR HYPERCAPNIA Status: Acute (2) Anemia Code(s): D64.9 - ANEMIA, UNSPECIFIED Status: Chronic (3) Acute blood loss anemia Code(s): D62 - ACUTE POSTHEMORRHAGIC ANEMIA Status: Acute (4) Malignant neoplasm of female breast Code(s): C50.919 - MALIGNANT NEOPLASM OF UNSP SITE OF UNSPECIFIED FEMALE BREAST Status: Chronic - Plan pt extubated today, doing well. on abx for aspiration precaution. hh stable. pt tolerating diet. possible discharge in am if ok with gi.
[2019-02-19] MEDS: Everolimus [Afinitor] 10 MG PO SCH ×2 (17:07→19:59)
--- NOTE | 2019-02-19 17:58 | PRG ---
DATE OF SERVICE: 02/19/2019 SUBJECTIVE: Ms. Torres is doing well today. She has been eating. She has had no bleeding. OBJECTIVE: VITAL SIGNS: Temperature 98, pulse 119, and blood pressure 147/73. ABDOMEN: Soft and nontender. DIAGNOSTIC DATA: Hemoglobin 8.8, platelet count 182, white count 6.3. Basic metabolic profile normal with a BUN and creatinine of 9 and 0.69. ASSESSMENT: Anemia from chronic gastrointestinal blood loss. On EGD she was found to have some blood in her stomach with some vascular ectasias in the antrum, probably from radiation a small erosion with visible vessel, which was cauterized. Her hemoglobin is stable. RECOMMENDATIONS: PPI daily. This can be changed to p.o. Advance diet as tolerated. Avoid NSAIDs. We will sign off. If I can be of any further assistance in the patient's care, please do not hesitate to contact me. Job ID: [id number]
[2019-02-19] MEDS: Exemestane 25 MG TAB PO SCH (20:17)
[2019-02-19] MEDS: ALPRAZolam 0.5 MG TAB PO PRN (23:22)
[2019-02-20] MEDS: HYDROcodone/Acetaminophen 10/325 mg Tablet PO PRN ×4 (04:27→19:08)
[2019-02-20] MEDS: Piperacillin/Tazobactam 3.375 GM in Sodium Chloride 0.9% 100 ML IVPB SCH (04:28)
[2019-02-20 07:39] LABS: Hemoglobin 9.1 g/dL (12.0-16.0); Mean Corpuscular HGB CONC 30.6 g/dL (32.0-36.0); Mean Corpuscular Hemoglobin 26.9 pg (27.0-31.0); Mean Platelet Volume 8.8 fL (7.4-10.4); Platelet Count 220 thou/uL (130-400); RBC Distribution Width 18.4 % (11.5-14.5); Red Blood Cell (RBC) Count 3.39 mill/uL (4.20-5.40)
[2019-02-20 07:50] LABS: Band 1 % (5-11); Hypochromia SLIGHT = 6-15 cells (100X) (0-5/hpf); Lymphocytes 6 % (21-51); MDiff Complete? YES; Monocytes 11 % (0-10); Neutrophil 81 % (42-75); Nucleated RBC 3 % (0); Platelet Morphology Comment Appears Adequate; Polychromasia MODERATE = 3-4 cells (100X) (0-2/hpf); Reactive Lymphocytes 1 % (0-10); Vacuoles SLIGHT; White Blood Cell (WBC) Count 8.6 thou/uL (4.8-10.8)
[2019-02-20] MEDS: predniSONE 20 MG TAB PO SCH (09:55)
[2019-02-20] MEDS: METHadone HCl 10 MG TAB PO SCH ×2 (09:58→19:21)
--- NOTE | 2019-02-20 10:02 | PDOC.HOSPP ---
- Subjective Subjective: Ms. Guallpa was seen today in follow-up of GI bleed. She is feeling a little weaker today than yesterday. No new complaints. She is aching all over. - Objective Vital Signs & Weight: Vital Signs (12 hours) Temp Pulse Resp BP Pulse Ox 02/20/19 07:31 98.6 F 118 H 16 150/79 H 97 02/20/19 07:11 96 12 100 02/20/19 04:54 114 H Weight Admit Weight 159 lb 6.307 oz Weight 160 lb 14.999 oz Most Recent Monitor Data Heart Rate from ECG 109 NIBP 123/89 NIBP BP-Mean 100 Respiration from ECG 19 SpO2 98 I&O: 02/19/19 02/20/19 02/21/19 06:59 06:59 06:59 Intake Total 1065 1025 Output Total 1100 540 Balance -35 485 Result Diagrams: 02/20/19 05:59 02/18/19 05:18 ROS - Review of Systems All systems: All other ROS were reviewed and found negative. - Medication Medications: Active Medications Generic Name Dose Route Start Last Admin Trade Name Freq PRN Reason Stop Dose Admin Hydrocodone Bitart/Acetaminophen 1 tab 02/17/19 22:31 02/20/19 09:55 [place] 10/325 PO 1 tab Q4HR PRN Administration Pain Albuterol/Ipratropium 3 ml 02/18/19 19:00 02/20/19 07:11 Duoneb NEB 3 ml [id number] ODILON Administration Alprazolam 0.5 mg 02/17/19 22:31 02/19/19 23:22 Xanax PO 0.5 mg HS PRN Administration Anxiety Exemestane 25 mg 02/18/19 21:00 02/19/19 20:17 Aromasin PO 25 mg HS ODILON Administration Fentanyl Citrate 2,000 mcg/ 100 mls @ 0 mls/hr 02/18/19 16:55 02/18/19 18:23 Sodium Chloride IV 03/20/19 16:55 100 mls INF ODILON Administration Protocol Per Protocol Piperacillin Sod/Tazobactam 100 mls @ 200 mls/hr 02/18/19 18:00 02/20/19 04: 28 Sod 3.375 gm/ Sodium Chloride IVPB 100 mls Q6HR ODILON Administration Lorazepam 2 mg 02/18/19 16:55 07/27/19 04:35 Ativan SLOW IVP 03/20/19 16:55 2 mg Q1H PRN Administration Breakthrough agitation Methadone HCl 5 mg 02/18/19 09:00 02/20/19 09:58 Dolophine Hcl PO Not Given BID ODILON Pantoprazole Sodium 40 mg 02/20/19 09:00 02/20/19 09:55 Protonix PO 40 mg DAILY ODILON Administration Everolimus [Afinitor 0 each 02/18/19 21:00 02/19/19 19:59 ] 10 Mg PO 1 each HS ODILON Administration Propofol 1,000 mg 02/18/19 16:55 02/19/19 00:14 Diprivan IV 03/20/19 16:55 1,000 mg INF PRN Administration TO ACHIEVE GOAL RASS Protocol Sodium Chloride 10 ml 02/18/19 10:48 02/18/19 20:36 Flush - Normal Saline IVF 10 ml PRN PRN Administration Saline Flush - Exam Eye: PERRL, anicteric sclera Heart: RRR, no murmur, no gallops, no rubs Respiratory: CTAB, no wheezes, no rales, no ronchi, normal chest expansion Gastrointestinal: soft, non-distended, normal bowel sounds, tender to palpation (+ diffuse mild tenderness) Hosp A/P (1) Antral ulcer Code(s): K25.9 - GASTRIC ULCER, UNSP ACUTE OR CHRONIC, W/O HEMOR OR PERF Status: Acute (2) Acute blood loss anemia Code(s): D62 - ACUTE POSTHEMORRHAGIC ANEMIA Status: Acute (3) Bone metastases Code(s): C79.51 - SECONDARY MALIGNANT NEOPLASM OF BONE Status: Chronic (4) Stage IV carcinoma of breast Code(s): C50.919 - MALIGNANT NEOPLASM OF UNSP SITE OF UNSPECIFIED FEMALE BREAST Status: Chronic - Plan * Antral ulcer- s/p cautery * Her H&H has been stable * She has tolerated a solid diet * Stable for discharge home
--- NOTE | 2019-02-20 19:52 | DIS ---
DATE OF ADMISSION: 02/17/2019 DATE OF DISCHARGE: 02/20/2019 DISCHARGE DISPOSITION: Home. PRIMARY DISCHARGE DIAGNOSES: 1. Gastrointestinal bleed. 2. Preantral ulcer. 3. Metastatic breast cancer. 4. Possible aspiration pneumonia. DISCHARGE MEDICATIONS: Include; 1. Protonix 40 mg daily. 2. Augmentin 875 mg twice daily. 3. Simethicone 80 mg as needed. 4. Methadone 5 mg twice a day. 5. [place] 10/325 q.4 as needed. 6. Aromasin 25 mg at bedtime. 7. Afinitor 10 mg at bedtime. 8. Xanax 0.5 mg at bedtime. CODE STATUS: Full code. ALLERGIES: NO KNOWN DRUG ALLERGIES. PROCEDURES DONE DURING THE ADMISSION: The patient had an upper endoscopy, in which the esophagus was normal. There was some mild erythema and neovascularization of the antrum and there was some slight oozing in one area in the pre-pyloric antrum with a visible vessel. HOSPITAL COURSE: Ms. Guallpa is a very pleasant 39-year-old female, who has a history of metastatic breast cancer. She presented to the ER, complaining of feeling dizzy and lightheaded. She also had noted some dark stools. She was found to have a hemoglobin of 5.8. She was admitted and transfused 2 units of blood. GI was consulted and she underwent upper endoscopy. She was found to have a pre-pyloric antral ulcer. This was cauterized. She was placed on IV Protonix, and her hemoglobin and hematocrit remained stable following this. There was also some concern for possible aspiration, and for this reason, she was placed on Zosyn and will be discharged home on Augmentin. At the time of discharge, her hemoglobin and hematocrit were stable. She was tolerating a solid diet and is subsequently being discharged. Job ID: [id number]
[2019-02-20 20:00] VITALS: BP 143/84; TEMP 98.6
== END 2019-02-20 20:40 | disposition home or self-care (01) | DRG 377 ==
LOC: ERS 16:43 → T4-A 18:18 → CCU 02-18 15:37 → T4-A 02-19 11:47
PROVIDERS: ADMIT Family Medicine; ATTEND Family Medicine
PROC: 0W3P8ZZ Control Bleeding in Gastrointestinal Tract, Via Natural or Artificial Opening Endoscopic (ICD-10-PCS; principal; 2019-02-17)
PROC: 30233N1 Transfusion of Nonautologous Red Blood Cells into Peripheral Vein, Percutaneous Approach (ICD-10-PCS; 2019-02-17)
DX: K25.4 Chronic or unspecified gastric ulcer with hemorrhage (principal); J69.0 Pneumonitis due to inhalation of food and vomit; J96.00 Acute respiratory failure, unspecified whether with hypoxia or hypercapnia; D62 Acute posthemorrhagic anemia; C79.51 Secondary malignant neoplasm of bone; K31.811 Angiodysplasia of stomach and duodenum with bleeding; C50.911 Malignant neoplasm of unspecified site of right female breast; J38.5 Laryngeal spasm; K29.70 Gastritis, unspecified, without bleeding; Z90.11 Acquired absence of right breast and nipple; Z92.21 Personal history of antineoplastic chemotherapy; Z92.3 Personal history of irradiation; Z90.722 Acquired absence of ovaries, bilateral
CPT/HCPCS: 36415; 36430; 71045; 80048; 80053; 81003; 82274; 82805; 83735; 84484; 85025; 86850; 86900; 86901; 93005; 94002; 94003; 94640; 96360; 96361; C9113; J1720; J2060; J2543; J2704; J2920; J3010; J3490; J7512; J7620; P9016

== ENCOUNTER 2019-03-02 12:54 | Day surgery (SDC) | payer OTHER | END 2019-03-02 13:18 | disposition home or self-care (01) | LOC: ONC/OP 12:54 | PROVIDERS: ATTEND Internal Medicine Hematology & Oncology | DX: Z51.12 Encounter for antineoplastic immunotherapy (principal); C50.111 Malignant neoplasm of central portion of right female breast; C78.2 Secondary malignant neoplasm of pleura; C79.51 Secondary malignant neoplasm of bone | CPT/HCPCS: 96372; J0897 ==

== ENCOUNTER 2019-03-15 08:28 | Outpatient (CLI) | payer OTHER ==
--- NOTE | 2019-03-15 10:22 | MRI ---
MRI thoracic spine noncontrast: DATE: 03/15/2019 HISTORY: 39-year-old female with metastatic breast cancer presents with with thoracic radiculopathy and mid ba ck pain. TECHNIQUE: This study was ordered specifically to be performed without IV gadolinium based contrast agent FINDINGS: There is extensive heterogeneous bone marrow signal throughout all vertebral bodies, some levels more extensively involved than others. The degree of metastatic bone disease appears to be mixed of osteoblastic and osteolytic changes but appears to be predominantly osteoblastic now, and more extens ively involved than on 07/20/2017. Vertebral body heights are maintained. No bony retropulsion. At T10-11 there is mild to moderate central spinal canal stenosis due to ligamentum flavum thickening . Moderate to severe thecal sac stenosis. At T11-12 there is soft tissue density material throughout the posterior extradural space that contig uously completely fills the left neural foramen, surrounding the exiting left T11 nerve root. The soft tissue density material causes severe thecal sac stenosis. Mild circumferential cord impingement by this. At T12-L1, there is a smaller amount of such posterior epidural soft tissue density material. No bony central spinal canal stenosis. Moderate thecal sac stenosis. The soft tissue density material partially fills the left neural foramen. No syringohydromyelia. Mild intramedullary T2 hyperintensity from T10 through T12. Conus medullaris t erminates inferior to the lowest image slice, which is L1. Small right pleural effusion and tiny left pleural effusion. Metastatic masses in the right lobe of the liver. IMPRESSION: 1. Metastatic tumor material in the posterior epidural space causing thecal sac stenosis and mild cor d impingement, and within the left neural foramen surrounding the exiting left nerve roots, at T11-T12, and to a lesser degree T12-L1. 2. Extensive osseous metastatic disease throughout the thoracic spine. 3. Incidental finding of high-grade central spinal canal stenosis at C6-7 in the cervical spine, inco mpletely imaged. 4. Mild intramedullary edema and lower spinal cord. 5. No pathologic compression fracture.
--- NOTE | 2019-03-15 12:26 | MRI ---
MRI LUMBAR SPINE WITHOUT CONTRAST: HISTORY: Lumbar vertebra compression fracture. Osseous metastases in a patient with a known breast cancer. COMPARISON: None. CORRELATION: CT 01/19/2019. FINDINGS: There is diffuse marrow signal abnormality on the T1 weighted sequence. Minimal normal marrow is not ed at the L1 level. There is loss of vertebral body height and STIR hyperintensity at S1 compatible with a pathologic fracture. Lumbar vertebrae have a normal signal intensity. Paraspinal muscles and solid organs are unremarkable. Conus medullaris terminates at the mid L1 level. T12-L1: Adequate disk hydration. No significant central canal stenosis or neural foraminal narrowin g. L1-L2: Adequate disk hydration. Mild ligamentum flavum thickening and facet hypertrophy. Mild cent ral canal stenosis. Bilaterally, neural foramen are patent. L2-L3: Adequate disk hydration. No significant central canal stenosis. Neural foramen are patent. Mild ligamentum flavum thickening and facet hypertrophy. L3-L4: Adequate disk hydration. No significant central canal stenosis. Neural foramen are patent. There is mild ligamentum flavum thickening and facet hypertrophy. L4-L5: Adequate disk hydration. No significant central canal stenosis. There is a broad-based disk bulge. Neural foramina are mildly narrowed bilaterally. There does appear to be a left lateral ext raforaminal disk protrusion with T2 hyperintensity and STIR hyperintensity suggesting an annular fiss ure with associated mild disk protrusion. L5-S1: There is adequate disk hydration. There is a midline T2 hyperintensity likely representing a small annular fissure with a minimal associated disk protrusion. Disk material abuts but does not o bscure either traversing S1 nerve root. Bilaterally, there is mild neural foraminal narrowing. IMPRESSION: 1. Pathologic fracture at S1. 2. Multifocal osseous metastases. 3. Posterior annular fissure at L5-S1. 4. Left extraforaminal annular fissure at L4-L5. POS: OFF
== END 2019-03-15 08:29 | disposition home or self-care (01) ==
LOC: BICMRI 08:28
PROVIDERS: ATTEND Specialist
DX: S32.000A Wedge compression fracture of unspecified lumbar vertebra, initial encounter for closed fracture (principal); M54.14 Radiculopathy, thoracic region; M84.48XA Pathological fracture, other site, initial encounter for fracture; C79.51 Secondary malignant neoplasm of bone; Q05.7 Lumbar spina bifida without hydrocephalus; M48.02 Spinal stenosis, cervical region; G95.19 Other vascular myelopathies
CPT/HCPCS: 72146; 72148

== ENCOUNTER 2019-03-27 22:59 | Emergency (ER) | payer OTHER ==
[2019-03-28] MEDS ORDERED: Fentanyl 100 MCG/2 ML VIAL ONE ×2 (00:06→02:55)
[2019-03-28 00:15] LABS: BHCG - Serum Negative (NEGATIVE); Pregs Control Background? CLEAR/WHITE (CLR/WHITE); Pregs Control Bar Appear? YES (CONTROL BAR)
[2019-03-28 00:29] LABS: Hemoglobin 8.6 g/dL (12.0-16.0); Mean Corpuscular HGB CONC 31.8 g/dL (32.0-36.0); Mean Corpuscular Hemoglobin 24.8 pg (27.0-31.0); Mean Platelet Volume 7.6 fL (7.4-10.4); Platelet Count 472 thou/uL (130-400); Red Blood Cell (RBC) Count 3.48 mill/uL (4.20-5.40); White Blood Cell (WBC) Count 13.1 thou/uL (4.8-10.8)
[2019-03-28 00:31] LABS: ALT (SGPT) 36 U/L (8-55); AST (SGOT) 86 U/L (5-34); Albumin 3.4 g/dL (3.5-5.0); Alkaline Phosphatase 539 U/L (40-150); Anion Gap 16 mmol/L (10-20); BUN (Urea Nitrogen) 6 mg/dL (7.0-18.7); Calc. Creatinine Clearance 0 mL/min (70-130); Calcium 9.2 mg/dL (7.8-10.44); Carbon Dioxide 29 mmol/L (22-29); Chloride 97 mmol/L (98-107); Estimated GFR-MDRD Greater than 90; Globulin 3.7 g/dL (2.4-3.5); Glucose 132 mg/dL (70-105); Potassium 3.2 mmol/L (3.5-5.1); Protein, Total 7.1 g/dL (6.0-8.3); Sodium 139 mmol/L (136-145)
[2019-03-28 00:39] LABS: #Eosinphils 0.1 thou/uL (0.0-0.7); #Lymphocytes 1.3 thou/uL (1.20-3.40); #Neutrophils 10.7 thou/uL (1.40-6.50); %Eosinophils 0.7 % (0.0-10.0); %Lymphocytes 9.7 % (21.0-51.0); %Monocytes 7.6 % (0.0-10.0)
[2019-03-28 00:40] LABS: Anisocytosis SLIGHT = 6-15 cells (100X) (0-5/hpf); MDiff Complete? YES; Platelet Morphology Comment Appears Adequate
[2019-03-28 01:13] LABS: Bilirubin Negative (Negative); Blood, Urine Negative (Negative); Clarity Clear (Clear); Glucose, Urine (Dipstick) Normal (Negative); Leukocyte Negative Leu/uL (Negative); Nitrite Negative (Negative); Protein, Urine (Dipstick) Negative (Neg-Trace); Urobilinogen Normal mg/dL (Less than 2)
[2019-03-28] MEDS ORDERED: HYDROmorphone 0.5 MG/0.5 ML SYRINGE ONE (02:06)
--- NOTE | 2019-03-28 09:02 | MRI ---
PRELIMINARY REPORT/[facility]/EMERGENCY AFTER HOURS PROCEDURE: EXAM: MR Pelvis Without Contrast EXAM DATE/TIME: 03/28/2019 1:28 AM CLINICAL HISTORY: 39 years old, female; Hip pain; Left hip; Prior surgery; Surgery date: 1-6 months; Additional info: 4 8 y/o F, with h/o breast CA with mets, presents to ED C/O worsening lower back pain S/P spinal surger y. PT was discharged from hospital on Friday following sacral cementing. PT reports fever today of approx 102f, for which PT took tylenol. Low back pain and fever; Patient states HX. Of sacro plasty, 02/2019; HX. Of breast CA, oral chemo; Exam ordered w/out contrast; Previous @ [facility] TECHNIQUE: Imaging protocol: Magnetic resonance images of the pelvis without intravenous contrast. COMPARISON: No relevant prior studies available. FINDINGS: Intraperitoneal space: No free fluid. Reproductive: Unremarkable. Bones/joints: There are multifocal lesions noted throughout the bones involving the hips, right pubic ramus bilateral iliac bones and lumbosacral vertebrae suggestive of metastases. Soft tissues: Unremarkable. IMPRESSION: Diffuse osseous metastases are present. Thank you for allowing us to participate in the care of your patient. Dictated and Authenticated by: Shahram Barber MD 03/28/2019 2:46 AM Central Time ([place] & [place]) FINAL REPORT EMERGENCY AFTER HOURS PELVIS MRI WITHOUT IV CONTRAST: Date: 03/28/19 Time: 0134 hours HISTORY: Worsening low back pain and fever. History of sacroplasty. FINDINGS/IMPRESSION: Extensive bone metastasis. Evidence for some free pelvic fluid. No evidence for an abscess. No signif icant malalignment of the lower lumbar spine, sacrum, pelvis, or hips. Report in agreement with preliminary report given on-call by Abiel. POS: [facility]
--- NOTE | 2019-03-28 09:05 | MRI ---
PRELIMINARY REPORT/[facility]/EMERGENCY AFTER HOURS PROCEDURE: EXAM: MR Lumbar Spine Without Contrast. EXAM DATE/TIME: 03/28/2019 1:04 AM CLINICAL HISTORY: 39 years old, female; Patient HX: 39 y/o F, with h/o breast CA with mets, presents to ED C/O worsenin g lower back pain S/P spinal surgery. PT was discharged from hospital on Friday following sacral alvaro enting. PT reports fever today of approx 102f, for which PT took tylenol. Low back pain and fever; Patient states HX. Of sacroplasty, 02/2019; HX. Of breast CA, oral chemo; Exam ordered w/o ut contrast TECHNIQUE: Imaging protocol: Multiplanar magnetic resonance images of the lumbar spine without contrast. COMPARISON: No relevant prior studies available. FINDINGS: Vertebrae: There is heterogeneity of the vertebrae suggestive of diffuse osseous metastasis. No acute compression fractures are demonstrated. Spinal cord: Normal signal. No cord compression. Discs/Spinal canal/Neural foramina: No significant disc disease. No significant spinal stenosis. Soft tissues: Unremarkable. IMPRESSION: Diffuse osseous metastases. No acute compression fractures. Thank you for allowing us to participate in the care of your patient. Dictated and Authenticated by: Shahram Barber MD 03/28/2019 2:56 AM Central Time ([place] & [place]) FINAL REPORT EMERGENCY AFTER HOURS LUMBAR SPINE MRI WITHOUT IV CONTRAST: Date: 03/28/19 Time: 0110 hours COMPARISON: 03/15/19. FINDINGS/IMPRESSION: Severe bone metastasis. Disc osteophytosis changes at T10-T11 and T11-T12, with some resultant stenos is. Evidence for pathologic fractures involving the sacrum, stable. No significant new process. Report in agreement with preliminary report given on-call by Abiel. POS: [facility]
== END 2019-03-28 03:40 | disposition home or self-care (01) ==
LOC: ERS 22:59
DX: M54.5 Low back pain (principal); R22.0 Localized swelling, mass and lump, head; Z85.3 Personal history of malignant neoplasm of breast; Z79.899 Other long term (current) drug therapy
CPT/HCPCS: 72148; 72195; 80053; 81003; 84703; 85025; 96361; 96374; 96375; 96376; J1170; J3010

== ENCOUNTER 2019-03-30 12:38 | Day surgery (SDC) | payer OTHER | END 2019-03-30 14:59 | disposition home or self-care (01) | LOC: ONC/OP 12:38 | PROVIDERS: ATTEND Internal Medicine Hematology & Oncology | DX: Z51.12 Encounter for antineoplastic immunotherapy (principal); C50.111 Malignant neoplasm of central portion of right female breast; C78.2 Secondary malignant neoplasm of pleura; C79.51 Secondary malignant neoplasm of bone | CPT/HCPCS: 96372; J0897 ==

== ENCOUNTER 2019-04-27 10:31 | Day surgery (SDC) | payer OTHER, SELFPAY | END 2019-04-27 11:01 | disposition home or self-care (01) | LOC: ONC/OP 10:31 | PROVIDERS: ATTEND Internal Medicine Hematology & Oncology | DX: Z51.12 Encounter for antineoplastic immunotherapy (principal); C50.111 Malignant neoplasm of central portion of right female breast; C78.2 Secondary malignant neoplasm of pleura; C79.51 Secondary malignant neoplasm of bone | CPT/HCPCS: 96372; J0897 ==

== ENCOUNTER 2019-05-08 22:03 | Observation (INO) | payer OTHER ==
[2019-05-08 23:12] LABS: Hemoglobin 10.8 g/dL (12.0-16.0); Mean Corpuscular HGB CONC 31.6 g/dL (32.0-36.0); Mean Corpuscular Hemoglobin 25.3 pg (27.0-31.0); Mean Corpuscular Volume 80.1 fL (78.0-98.0); Mean Platelet Volume 8.1 fL (7.4-10.4); Platelet Count 448 thou/uL (130-400); RBC Distribution Width 21.5 % (11.5-14.5); Red Blood Cell (RBC) Count 4.26 mill/uL (4.20-5.40)
--- NOTE | 2019-05-08 23:16 | RAD ---
EXAM: Chest one view: HISTORY: Body pain and chills personal history of breast cancer COMPARISON: 03/19/2019 FINDINGS: There is some increased density overlying the right lower chest from the right breast soft tissues. Heart size: Within normal limits. Lungs: Clear of acute process. No evidence for pneumonia, pleural effusion, acute edema, or pneumothorax, or other significant acute process. IMPRESSION: No significant acute intrathoracic disease. Stable exam.
[2019-05-08] MEDS ORDERED: Ondansetron PF 4 MG/2 ML Vial ONE (23:27)
[2019-05-08] MEDS ORDERED: Morphine 4 MG/ML VIAL ONE (23:27)
[2019-05-08 23:31] LABS: ALT (SGPT) 26 U/L (8-55); AST (SGOT) 59 U/L (5-34); Alkaline Phosphatase 510 U/L (40-110); Anion Gap 14 mmol/L (10-20); BUN (Urea Nitrogen) 7 mg/dL (7.0-18.7); Bilirubin, Total 0.5 mg/dL (0.2-1.2); Calc. Creatinine Clearance 0 mL/min (70-130); Calcium 9.7 mg/dL (7.8-10.44); Carbon Dioxide 27 mmol/L (22-29); Chloride 98 mmol/L (98-107); Estimated GFR-MDRD Greater than 90; Globulin 3.7 g/dL (2.4-3.5); Glucose 177 mg/dL (70-105); Potassium 3.3 mmol/L (3.5-5.1); Protein, Total 7.7 g/dL (6.0-8.3); Sodium 136 mmol/L (136-145)
[2019-05-08 23:34] LABS: #Eosinphils 0.2 thou/uL (0.0-0.7); #Lymphocytes 1.2 thou/uL (1.20-3.40); #Monocytes 0.7 thou/uL (0.11-0.59); #Neutrophils 5.9 thou/uL (1.40-6.50); %Basophils 0.1 % (0.0-1.0); %Eosinophils 2.8 % (0.0-10.0); %Lymphocytes 14.7 % (21.0-51.0); %Monocytes 9.1 % (0.0-10.0); %Neutrophils 73.3 % (42.0-75.0)
--- NOTE | 2019-05-09 00:17 | CT ---
Exam: Abdomen and pelvic CT scan with IV contrast: COMPARISON: 07/29/2018 HISTORY: Metastatic breast cancer body and joint aches and weakness abdominal pain FINDINGS: Bilateral pleural effusions greater on the right side. Innumerable very large metastasis throughout t he right and left lobes of the markedly enlarged liver almost entirely replacing the liver. These findings are new from the prior study. Somewhat small contracted gallbladder. Visualized pancreas, sp glenda, adrenal glands and kidneys are unremarkable. Sclerotic and lytic bone lesions are noted most marked in the lumbar spine. There are postoperative changes of the sacral alar regions bilaterally. L ytic bone lesions in the pelvis and left hip. No evidence for large or small bowel obstruction, although there are several minimally dilated small bowel loops in the anterior lower pelvis, as well as some other small bowel loops which are borderline thickened, nonspecific possibly some ileus or enteritis.. No CT evidence for acute appendicitis. No abscess or abnormal fluid collection within the abdomen or pelvis. IMPRESSION: Severe liver enlargement which is nearly totally replaced by extensive liver metastasis new from prio r study. Extensive lytic and blastic bone metastasis. Several borderline size small bowel loops in the abdomen with some mild small bowel wall thickening, nonspecific enteritis.
[2019-05-09] MEDS ORDERED: Morphine 10 MG/ML VIAL ONE (01:04)
--- NOTE | 2019-05-09 02:14 | PDOC.FPRHP ---
- History of Present Illness History of Present Illness: Patient is a 39 yo Female with PMHx of metastatic breast cancer (primary right breast) who presents to [facility] ED with complaint of weakness and total body aching which has become acutely and progressively worse over the past 2 days. Patient states that worst areas are her elbow and knee joints. Initially she rated her pain 10/10, after she had received Morphine 14 mg total in ED she currently rates her pain as 8/10. Patient additionally complains for past 2-3 months she has had decreased PO intake and nausea accompanied by gradually increasing abdominal pain and bloating. Patient is currently taking chemo for her cancer. She recently completed radiation therapy targeted at her hips and back. Patient has known metastases in her lungs, liver, and bones (spine, hips, femoral head). Her most recent hospitalization was in February 2019 for intractable pain during which she had a bilateral sacroplasty surgery completed for S1 vertebral body pathologic fracture. Patient states during this hospitalization her pain regimen was adjusted to Fitzhugh 10/325, Fentanyl 50 mcg which has since been titrated up by Oncology to 100 mcg, and Gabapentin. Patient last took off her Fentanyl patch at 2030 on 05/08/19, just before she decided to come to ED. ED Course: Given 14 mg morphine (dosed as 6, 4, and 4). Bolus 2L NS. - Allergies/Adverse Reactions Allergies Allergy/AdvReac Type Severity Reaction Status Date / Time No Known Allergies Allergy Verified 05/09/19 03:25 - Home Medications Medication Instructions Recorded Confirmed Type ALPRAZolam [Xanax] 0.5 mg PO HS PRN 12/06/17 05/09/19 History Simethicone [Gas Relief] 80 mg PO PRN PRN 02/17/19 05/09/19 History Pantoprazole [Protonix] 40 mg PO DAILY #30 tab 02/20/19 05/09/19 Rx Alpelisib [Piqray] 250 mg PO DAILY 03/17/19 05/09/19 History Fulvestrant [Faslodex] 250 mg IM Q30D 03/17/19 05/09/19 History HYDROmorphone [Dilaudid] 4 mg PO Q4HR PRN 03/17/19 05/09/19 History Sucralfate 1 gm PO QID PRN 03/18/19 05/09/19 History Gabapentin [Neurontin] 300 mg PO BID #60 cap 03/23/19 05/09/19 Rx Cetirizine HCl [Zyrtec] 10 mg PO DAILY 05/09/19 05/09/19 History fentaNYL [Duragesic] 100 mcg TD Q3D 05/09/19 History Comments: Patient current med rec pending. Patient only voiced current pain meds being Fentanyl 100 mcg patch q3days, Fitzhugh 10/325, and Gabapentin. Additionally stated she recently started on Metformin for hyperglycemia. - History PMHx: Metastatic Breast Cancer with mets to liver, lungs, bone, 1st dx 2008, recur 2016; Hyperglycemia 2/2 chemo agent PSHx: right mastectomy with reconstruction; bilateral ovary removal; bilateral sacroplasty in February 2019; multiple biopsies FHx: no FHx of cancer Social: denies EtOH or tobacco use - Review of Systems General: reports: weight/appetite/sleep changes, fatigue. denies: fever/chills Eyes: denies: vision changes ENT: denies: nasal congestion, rhinorrhea Respiratory: denies: cough, congestion, shortness of breath Cardiovascular: denies: chest pain, edema Gastrointestinal: reports: nausea, constipation, abdominal pain. denies: vomiting, diarrhea Skin: denies: rashes, lesions, jaundice Musculoskeletal: reports: pain, arthritis/arthralgias. denies: tenderness, swelling Neurological: reports: weakness. denies: numbness - Vital signs BP: 111/72 HR: 103 RR: 18 Tmax: 97.8F Pox: 99% on RA Wt: 60.8 kg - Physical Exam Constitutional: NAD, awake, alert and oriented, well developed HEENT: normocephalic and atraumatic, EOMI, conjunctiva clear, no scleral icterus , grossly normal vision, grossly normal hearing, MMM Neck: supple, FROM, no JVD Chest: no-tender to palpation Heart: RRR, normal S1/S2, no murmurs/rubs/gallops, pulses present, no edema Lungs: CTAB, no respiratory distress, good air movement, no rales/rhonchi, no wheezing Abdomen: bowel sounds present, other (Firm enlarged liver that is TTP. Also TTP in RLQ and LLQ.) Musculoskeletal: normal structure, normal tone Neurological: no focal deficit, normal sensation Skin: no rash/lesions, good turgor Heme/Lymphatic: no unusual bruising or bleeding Psychiatric: normal mood and affect, intact recent and remote memory FMR H&P: Results - Labs Result Diagrams: 05/08/19 23:05/08/19 23: Lab results: WBC 8.0 thou/uL (4.8-10.8) 05/08/19 23: Hgb 10.8 g/dL (12.0-16.0) L 05/08/19: Hct 34.1 % (36.0-47.0) L 05/08/19: MCV 80.1 fL (78.0-98.0) 05/08/19: Plt Count 448 thou/uL (130-400) H 05/08/19: Neutrophils % 73.3 % (42.0-75.0) 05/08/19 23: Sodium 136 mmol/L (136-145) 05/08/19 23: Potassium 3.3 mmol/L (3.5-5.1) L 05/08/19: Chloride 98 mmol/L (98-107) 05/08/19 23: Carbon Dioxide 27 mmol/L (22-29) 05/08/19 23: BUN 7 mg/dL (7.0-18.7) 05/08/19 23: Creatinine 0.81 mg/dL (0.6-1.1) 05/08/19 23: Glucose 177 mg/dL (70-105) H 05/08/19 23: Lactic Acid 2.8 mmol/L (0.5-2.2) H 05/08/19 23:25 Calcium 9.7 mg/dL (7.8-10.44) 05/08/19 23: Total Bilirubin 0.5 mg/dL (0.2-1.2) 05/08/19 23: AST 59 U/L (5-34) H 05/08/19 23: ALT 26 U/L (8-55) 05/08/19 23: Alkaline Phosphatase 510 U/L (40-110) H 05/08/19 23: Serum Total Protein 7.7 g/dL (6.0-8.3) 05/08/19 23: Albumin 4.0 g/dL (3.5-5.0) 05/08/19 23:01 - Radiology Interpretation CT scan - abdomen Status: report reviewed by me (lytic bone lesions, new and enlarging liver metastases, possible enteritis in bowel) Chest x-ray Status: report reviewed by me (no acute pathology) FMR H&P: A/P - Problem List (1) Intractable pain Status: Acute Code(s): R52 - PAIN, UNSPECIFIED (2) Liver metastases Status: Acute Code(s): C78.7 - SECONDARY MALIG NEOPLASM OF LIVER AND INTRAHEPATIC BILE DUCT (3) Bone metastases Status: Chronic Code(s): C79.51 - SECONDARY MALIGNANT NEOPLASM OF BONE Comment: s/p chemo/XRT (4) Malignant neoplasm of female breast Status: Chronic Code(s): C50.919 - MALIGNANT NEOPLASM OF UNSP SITE OF UNSPECIFIED FEMALE BREAST Comment: Supportive mgmt, pain control, Oncology follow up as outpt (5) Hyperglycemia, drug-induced Status: Acute Code(s): R73.9 - HYPERGLYCEMIA, UNSPECIFIED; T50.905A - ADVERSE EFFECT OF UNSP DRUG/MEDS/BIOL SUBST, INIT - Plan Patient is a 39 yo female with pain and weakness who is admitted for intractable pain: #Intractable Pain -most likely due to metastatic breast cancer -has already received 14 mg Morphine total in ED -will continue home meds: Fentanyl 100 mcg patch, Fitzhugh 10/325, Gabapentin -add on pain med as required for adequate pain control -Lactic acid initially 2.8, will repeat -vitals q4hr #Metastatic Breast Cancer -primary right breast -known mets to lungs, liver, bone (including spine, hips, femoral head)-- consistent with CT abdomen on 05/08/19 -CT abdomen (05/08): new findings of bilateral pleural effusion and enlarging liver mets -CXR (05/08): stable, no acute pathology -currently taking chemo (Piqray 300 mg daily) -consider Oncology consult in AM--pt sees Dr. Duran outpatient #Dry Skin -Eucerin topical moisturizing cream prn #Hyperglycemia 2/2 chemo -Continue home med: Metformin Diet: Regular VTE: Lovenox 40 mg Code: FULL Dispo: Stable, admitted to observation on oncology unit. Will continue to monitor for pain control and adjust med regimen as needed. Consider consulting Oncology, Dr. Duran in the AM. Anticipated LOS <2 days. FMR H&P: Upper Level - Pertinent history 39 year old female with history of metastatic lung cancer presents with intractable pain. Patient reports that she removed her fentanyl patch at 20:30 this evening as she was supposed to do. She felt like she might be overdosing because she felt very jittery and was in an incredible amount of pain in her joints, so she opted not to replace the patch. She endorses decreased appetite and poor PO intake since being on chemotherapy over the last 3 months. She states that she follows with Dr. Duran and her fentanyl patch was just increased to 100 mcg every 3 days. She also has hydrocodone and gabapentin at home for pain. Her last appt was 03/30/[address] Duran. Patient has known mets to lung, liver, and bone. Patient denies fever, chills, N/V, diarrhea, chest pain, or shortness of breath. - Pertinent findings General: Alert and oriented x3. No acute distress. Resting comfortably. HEENT: MMM, EOMI. Card: RRR Resp: No acute respiratory distress Ext: No cyanosis or edema - Plan Date/Time: 05/09/19213 I, Carly Lerner, have evaluated this patient and agree with findings/plan as outlined by inclusion internship resident. Pertinent changes/additions are listed here. Intractable pain 2/2 metastatic breast cancer - Continue home meds; will restart fentanyl patch which was removed at 20:30 per patient and not replaced - Pending home medication list and PRN meds available, will consider morphine PRN for breathrough (pt received 14mg of morphine in ED) - s/p 2L bolus NS; will start on maintenance fluids - Continue gabapentin - Consult Oncology in AM (Dr. Duran) Hyperglycemia 2/2 chemo medication - Continue metformin - CC diet - ACHS accuchecks Normocytic anemia - Likely chronic - Continue to monitor - Consider iron studies and iron supplementation Thrombocytosis - Reactive Hypokalemia - Replace and trend Elevated AST - Likely 2/2 liver mets Lactic acidosis - 2.8 --> 2.7 - Fluid resuscitate and trend DVT PPX: Lovenox Code Status: Full Dispo: Obs on Oncology. Anticipate LOS <48 hours. Addendum - Attending - Attending Attestation Date/Time: 05/11/19 1299 I personally evaluated the patient and discussed the management with Dr. Ozuna I agree with the History, Examination, Assessment and Plan documented above with any addition or exceptions noted below - 39 yo Female with PMHx of metastatic breast cancer (primary right breast) who presents to [facility] ED with complaint of weakness and total body aching which has become acutely and progressively worse over the past 2 days. Patient states that worst areas are her elbow and knee joints. Initially she rated her pain 10/10, after she had received Morphine 14 mg total in ED she currently rates her pain as 8/10. Patient additionally complains for past 2-3 months she has had decreased PO intake and nausea accompanied by gradually increasing abdominal pain and bloating. Recently completed XRT for bony metastasis and is on chemotherapy. PMH /PSH/Meds/SH reviewed and agree with resident's documentation. Afebrile VSS. Exam repeated by me and agree with resident's findings. A/P: 1) Pain crisis- restarted on fentanyl patch and prn meds. 2) Hypokalemia- potassium replaced and will recheck. 3) Metastatic breast cancer- CT scan reviewed which showed progression of metastases in liver as well as blastic and lytic bony lesions. Has follow-up with oncology later this week.
[2019-05-09 02:52] LABS: Bilirubin Negative (Negative); Blood, Urine Negative (Negative); Clarity Clear (Clear); Glucose, Urine (Dipstick) Normal (Negative); Leukocyte Negative Leu/uL (Negative); Nitrite Negative (Negative); Protein, Urine (Dipstick) Negative (Neg-Trace); Urobilinogen Normal mg/dL (Less than 2)
[2019-05-09 03:22] LABS: Lactic Acid 2.7 mmol/L (0.5-2.2)
[2019-05-09] MEDS ORDERED: Acetaminophen 325 MG TAB PO PRN (04:54)
[2019-05-09] MEDS ORDERED: HYDROcodone/Acetaminophen 10/325 mg Tablet PO PRN (04:54)
[2019-05-09] MEDS ORDERED: Calcium Carbonate 500 MG ChewTAB PO PRN (04:54)
[2019-05-09] MEDS ORDERED: Ondansetron ODT 4 MG TAB PO PRN (04:54)
[2019-05-09] MEDS ORDERED: Ondansetron PF 4 MG/2 ML Vial IVP PRN (04:54)
[2019-05-09] MEDS ORDERED: Hydrocerin (Eucerin) Cream 120 gm Jar TOP PRN ×2 (04:54→16:45)
[2019-05-09] MEDS ORDERED: Senokot S 8.6-50 MG TAB PO PRN (04:54)
[2019-05-09] MEDS ORDERED: Gabapentin 300 MG CAP PO SCH ×2 (05:15→09:00)
[2019-05-09] MEDS ORDERED: Lactated Ringer's 1,000 ML IV SCH (05:15)
[2019-05-09 05:43] VITALS: BMI 24.5
[2019-05-09] MEDS ORDERED: Sucralfate 1 GM TAB PO PRN (05:46)
[2019-05-09] MEDS ORDERED: Simethicone Chewable 80 MG TAB PO PRN (05:46)
[2019-05-09] MEDS ORDERED: ALPRAZolam 0.5 MG TAB PO PRN (05:46)
[2019-05-09] MEDS ORDERED: HYDROmorphone 2 MG TAB PO PRN (05:46)
[2019-05-09] MEDS ORDERED: Morphine 4 MG/ML VIAL SLOW IVP PRN (05:49)
[2019-05-09] MEDS ORDERED: fentaNYL 100 mcg/hour Patch TD SCH (06:00)
[2019-05-09] MEDS ORDERED: FLU VACC QS2019-20(6MOS UP)/PF 60 MCG/0.5 ML SYRINGE IM ONE (06:15)
[2019-05-09] MEDS: Sodium Chloride 0.9% 1,000 ML IV SCH ×2 (06:15→18:41)
[2019-05-09] MEDS ORDERED: Potassium Chloride 20 MEQ TAB PO SCH (08:15)
[2019-05-09] MEDS ORDERED: ALPELISIB PO SCH (09:00)
[2019-05-09] MEDS ORDERED: Enoxaparin Sodium 40 MG/0.4 ML SYRINGE SC SCH (09:00)
[2019-05-09] MEDS ORDERED: Loratadine 10 MG TAB PO SCH (09:00)
[2019-05-09 11:59] LABS: Phosphorus 2.8 mg/dL (2.3-4.7)
[2019-05-09 16:56] VITALS: BP 122/77; TEMP 98.1
--- NOTE | 2019-05-10 07:36 | SS ---
DATE OF ADMISSION: 05/09/2019 DATE OF DISCHARGE: 05/09/2019 CHIEF COMPLAINT: Abdominal pain. HISTORY OF PRESENT ILLNESS: The patient is a 39-year-old female with past medical history of metastatic breast cancer, primary right breast, who presented to [facility] with a complaint of weakness and total body aching, which had become acutely and progressively worse over the past two days. She also reported decreased p.o. intake over the past several months associated with increased abdominal pain. The patient currently sees Dr. Duran from Oncology and is receiving chemotherapy for her breast cancer. The patient has known metastasis in her lungs, liver, and bone. The patient reports that oncology is helping to control her pain medication regimen and she currently takes a variety of medications including 100 mcg of fentanyl, of which she removed her patch at 2030 on 2018, just before she decided to come to the ED. PAST MEDICAL HISTORY: Metastatic breast cancer with mets to the liver, lungs, bone, first diagnosis in 2008 and recurrence in 2016; hyperglycemia secondary to chemotherapy agent. PAST SURGICAL HISTORY: Right mastectomy with reconstruction, bilateral very ovary removal, bilateral sacroplasty in February 2019, multiple biopsies. FAMILY HISTORY: No family history of cancer. SOCIAL HISTORY: Denies alcohol or tobacco use. REVIEW OF SYSTEMS: Positive for: Appetite changes, fatigue, nausea, constipation, abdominal pain, musculoskeletal pain, arthralgias, weakness. Review of systems for 9-point system are otherwise negative unless stated above. PHYSICAL EXAMINATION: GENERAL: The patient is resting comfortably in bed, in no acute distress, awake , alert, oriented. CHEST: Regular rate and rhythm, normal S1, S2. RESPIRATORY: Clear to auscultation bilaterally, no respiratory distress. ABDOMEN: Positive bowel sounds, large firm liver that is tender to palpation, general abdomen tender to palpation. MUSCULOSKELETAL: Normal structure, tone. SKIN: Dry. HOSPITAL COURSE: The patient was admitted for intractable pain due to her metastatic breast cancer. She was restarted on her home medications, including replacing her 100 mcg fentanyl patch early on the morning of admission. By the afternoon, the patient reported that she felt better and felt comfortable going home. The patient reported that she has an appointment with Dr. Duran this Friday, 05/12. Dr. Duran was consulted during this hospitalization and recommended that as the patient's admission was not emergent and she had a current appointment scheduled on Friday, that she follow up with her in clinic. The patient was agreeable to this plan. DISCHARGE DIAGNOSES: Intractable pain, metastatic breast cancer, dry skin, hyperglycemia due to chemo. DISCHARGE MEDICATIONS: Restart patient's home medications. 1. 0.5 mg of Xanax p.o. at bedtime p.r.n. 2. Alpelisib 250 mg p.o. daily. 3. 10 mg Zyrtec p.o. daily. 4. Faslodex 250 mg IM q.30 days. 5. 100 mg gabapentin p.o. b.i.d. 6. 4 mg Dilaudid p.o. q.4 hours p.r.n. 7. 40 mg pantoprazole p.o. daily. 8. 80 mg simethicone p.o. p.r.n. 9. 1 g sucralfate p.o. q.i.d. p.r.n. 10. 100 mcg fentanyl patch q.3 days. DISPOSITION: Guarded. DISCHARGE INSTRUCTIONS: 1. Location: Home. 2. Diet: Regular. 3. Activity: As tolerated. 4. Followup: Follow up with Dr. Duran at upcoming appointment on 05/12 and primary care physician within two weeks. Job ID: [id number] MTDD
[2019-05-13] MEDS ORDERED: fentaNYL 50 mcg/hour Patch TD SCH (06:00)
== END 2019-05-09 19:19 | disposition home or self-care (01) ==
LOC: ERS 22:03 → 2SW 05-09 01:10
PROVIDERS: ADMIT Family Medicine; ATTEND Family Medicine
DX: G89.3 Neoplasm related pain (acute) (chronic) (principal); C50.911 Malignant neoplasm of unspecified site of right female breast; C78.00 Secondary malignant neoplasm of unspecified lung; C78.7 Secondary malignant neoplasm of liver and intrahepatic bile duct; C79.51 Secondary malignant neoplasm of bone; R73.9 Hyperglycemia, unspecified; T50.905A Adverse effect of unspecified drugs, medicaments and biological substances, initial encounter; J90 Pleural effusion, not elsewhere classified; D64.9 Anemia, unspecified; D47.3 Essential (hemorrhagic) thrombocythemia; E87.2 Acidosis; Z79.899 Other long term (current) drug therapy
CPT/HCPCS: 36415; 71045; 74177; 80053; 81003; 83605; 83735; 84100; 85025; 87040; 87086; 87804; 90471; 90686; 96361; 96372; 96374; 96375; 96376; G0008; G0378; J1650; J2270; J2405

== ENCOUNTER 2019-06-02 16:14 | Day surgery (SDC) | payer OTHER, SELFPAY ==
[2019-06-02 16:33] VITALS: BP 116/65; TEMP 98.5
== END 2019-06-02 16:50 | disposition home or self-care (01) ==
LOC: ONC/OP 16:14
PROVIDERS: ATTEND Internal Medicine Hematology & Oncology
DX: Z51.12 Encounter for antineoplastic immunotherapy (principal); C50.111 Malignant neoplasm of central portion of right female breast; C78.2 Secondary malignant neoplasm of pleura; C79.51 Secondary malignant neoplasm of bone
CPT/HCPCS: 96372; J0897

== ENCOUNTER 2019-07-15 12:10 | Day surgery (SDC) | payer OTHER ==
[2019-07-15 12:39] VITALS: BP 128/72; TEMP 97.9
== END 2019-07-15 12:39 | disposition home or self-care (01) ==
LOC: ONC/OP 12:10
PROVIDERS: ATTEND Internal Medicine Hematology & Oncology
DX: Z51.12 Encounter for antineoplastic immunotherapy (principal); C50.111 Malignant neoplasm of central portion of right female breast; C78.2 Secondary malignant neoplasm of pleura; C79.51 Secondary malignant neoplasm of bone
CPT/HCPCS: 96372; J0897

== ENCOUNTER 2019-08-25 08:18 | Outpatient (CLI) | payer OTHER ==
--- NOTE | 2019-08-25 09:13 | CT ---
EXAM: CT of the chest with contrast CT of the abdomen and pelvis with contrast HISTORY: Right breast cancer with bone metastases COMPARISON: 01/19/2019; 05/08/2019 TECHNIQUE: 1. Multiple contiguous axial images were obtained in a CT the chest with contrast. Coronal and sagitt al reformats were performed. 2. Multiple contiguous axial images were obtained and a CT of the abdomen and pelvis with contrast. C oronal and sagittal reformats were performed. FINDINGS: CT CHEST: HEART: Normal in size without focal cardiac abnormality MEDIASTINUM: No hilar or mediastinal lymphadenopathy. LUNGS: No focal infiltrates, nodules, or masses. PLEURAL SPACE: Small right pleural effusion. Trace left pleural effusion. CHEST WALL SOFT TISSUES: Status post right mastectomy and implant replacement. CT ABDOMEN/PELVIS: ABDOMEN: LIVER: Diffuse hypodensities scattered throughout the liver are consistent with metastatic disease. T he largest measures 2.87 m in size. These have significantly improved compared to the prior CT. BILE DUCTS: Normal caliber. GALLBLADDER: No calcified gallstones. Normal caliber wall. PANCREAS: within normal limits. SPLEEN: within normal limits. ADRENALS: within normal limits. KIDNEYS: within normal limits. PELVIS: REPRODUCTIVE ORGANS: No pelvic masses. URETERS: within normal limits. BLADDER: within normal limits. PERITONEUM: No ascites or free air, no fluid collection. BOWEL: Normal caliber. MESENTERY AND RETROPERITONEUM: No enlarged mesenteric or retroperitoneal lymph nodes. VESSELS: Normal. ABDOMINAL WALL: within normal limits. OSSEOUS STRUCTURES: Diffuse sclerosis in the bones is consistent with osseous metastatic disease. IMPRESSION: 1. Improvement in hepatic metastatic disease 2. Sclerosis of the bones may be secondary to metastatic disease 3. Small bilateral pleural effusions
[2019-08-25] MEDS ORDERED: Iopamidol-370 76% 500 ML 1 ML ONE (13:32)
== END 2019-08-25 08:19 | disposition home or self-care (01) ==
LOC: BICCT 08:18
PROVIDERS: ATTEND Internal Medicine Hematology & Oncology
DX: C50.111 Malignant neoplasm of central portion of right female breast (principal); C78.2 Secondary malignant neoplasm of pleura; C79.51 Secondary malignant neoplasm of bone; C78.7 Secondary malignant neoplasm of liver and intrahepatic bile duct; J90 Pleural effusion, not elsewhere classified; M89.9 Disorder of bone, unspecified
CPT/HCPCS: 71260; 74177; Q9967

== ENCOUNTER 2019-08-26 10:42 | Day surgery (SDC) | payer OTHER ==
[2019-08-26 11:11] VITALS: BP 114/69; TEMP 97.7
== END 2019-08-26 11:12 | disposition home or self-care (01) ==
LOC: ONC/OP 10:42
PROVIDERS: ATTEND Internal Medicine Hematology & Oncology
DX: Z51.12 Encounter for antineoplastic immunotherapy (principal); C50.111 Malignant neoplasm of central portion of right female breast; C78.2 Secondary malignant neoplasm of pleura; C79.51 Secondary malignant neoplasm of bone
CPT/HCPCS: 36415; 80053; 82248; 83615; 84100; 84550; 86300; 96372; J0897

== ENCOUNTER 2019-09-23 07:40 | Inpatient (IN) | payer OTHER ==
[2019-09-23] MEDS ORDERED: Ondansetron PF 4 MG/2 ML Vial ONE (08:20)
[2019-09-23] MEDS ORDERED: HYDROmorphone 0.5 MG/0.5 ML SYRINGE ONE (08:21)
[2019-09-23 09:07] LABS: #Eosinphils 0.1 thou/uL (0.0-0.7); #Lymphocytes 1.2 thou/uL (1.20-3.40); #Monocytes 0.5 thou/uL (0.11-0.59); #Neutrophils 2.3 thou/uL (1.40-6.50); %Basophils 0.1 % (0.0-1.0); %Eosinophils 3.3 % (0.0-10.0); %Lymphocytes 28.2 % (21.0-51.0); %Monocytes 12.7 % (0.0-10.0); %Neutrophils 55.8 % (42.0-75.0); Hemoglobin 10.8 g/dL (12.0-16.0); Mean Corpuscular HGB CONC 31.6 g/dL (32.0-36.0); Mean Corpuscular Hemoglobin 32.7 pg (27.0-31.0); Mean Platelet Volume 8.3 fL (7.4-10.4); Platelet Count 225 thou/uL (130-400); RBC Distribution Width 21.1 % (11.5-14.5); Red Blood Cell (RBC) Count 3.31 mill/uL (4.20-5.40); White Blood Cell (WBC) Count 4.2 thou/uL (4.8-10.8)
[2019-09-23 09:20] LABS: BHCG - Serum Negative (NEGATIVE); Pregs Control Background? CLEAR/WHITE (CLR/WHITE); Pregs Control Bar Appear? YES (CONTROL BAR)
[2019-09-23 09:24] LABS: ALT (SGPT) 26 U/L (8-55); AST (SGOT) 56 U/L (5-34); Albumin 3.8 g/dL (3.5-5.0); Alkaline Phosphatase 450 U/L (40-110); Anion Gap 13 mmol/L (10-20); BUN (Urea Nitrogen) 7 mg/dL (7.0-18.7); Bilirubin, Total 0.6 mg/dL (0.2-1.2); Calc. Creatinine Clearance 0 mL/min (70-130); Calcium 9.2 mg/dL (7.8-10.44); Carbon Dioxide 25 mmol/L (22-29); Chloride 101 mmol/L (98-107); Estimated GFR-MDRD Greater than 90; Glucose 81 mg/dL (70-105); Potassium 4.3 mmol/L (3.5-5.1); Protein, Total 7.8 g/dL (6.0-8.3); Sodium 135 mmol/L (136-145)
[2019-09-23 09:29] LABS: MDiff Complete? YES; Platelet Morphology Comment Appears Adequate; Polychromasia SLIGHT = 2-3 cells (100X) (0-2/hpf); Stomatocytes SLIGHT = 2-5 cells (100X) (0-1/hpf)
--- NOTE | 2019-09-23 09:45 | CT ---
EXAM: CTA of the chest HISTORY: Left-sided back pain and shortness of breath. Malignant neoplasm of the right female breast COMPARISON: 08/25/2019 TECHNIQUE: Multiple contiguous axial images were obtained a CTA of the chest with contrast per pulmon citlalli embolism protocol. 3-D oblique MIP reformats and direct coronal reformats were performed. FINDINGS: HEART: Normal in size without focal cardiac abnormality. PULMONARY ARTERIES: Normal in caliber without filling defects to suggest pulmonary emboli. MEDIASTINUM: No hilar or mediastinal lymphadenopathy. LUNGS: No focal infiltrates or masses. PLEURAL SPACE: Small bilateral pleural effusions. CHEST WALL SOFT TISSUES: Patient has a large right breast implant. VISUALIZED OSSEOUS STRUCTURES: Diffuse sclerotic metastases are seen. VISUALIZED SUBDIAPHRAGMATIC STRUCTURES: Scattered hypodensities in the liver likely represent metasta tic disease. IMPRESSION: No evidence of pulmonary thromboembolism 2. Bilateral pleural effusions. These have slightly enlarged compared to the prior examination. 3. Hepatic metastases 4. Osseous metastatic disease
--- NOTE | 2019-09-23 09:47 | CT ---
CT Lumbar Spine WO Con History: Pain Comparison: Chest abdomen pelvis CT examination August 25, 2019 Findings: The aortic contour is nonaneurysmal. Hypodensity material within the pelvis may be sequelae of prior barium contrast. No retroperitoneal periaortic adenopathy. Diffuse sclerosis of the spine compatible with known osseou s metastatic disease. There is cemented within the S1 vertebral body with some seen extravasated into the posterior SI join ts bilaterally. There is a fracture, pathologic, of the sacrum following zone 3 of S1 bilaterally best seen on coronal image 30 on the right and 27 on the left. Inferior endplate Schmorl's node at L4. Superior endplate Schmorl's node at L3 and L2. No listhesis o f the lumbar spine. No new Schmorl's node is appreciated. No new lumbar spine fracture. The transverse processes are without fracture. There are disc bulges at L3/L4, L4/L5 and L5/S1 causing at least moderate neural foraminal narrowing. Bilateral pleural effusions incompletely evaluated. Impression: Bilateral S1 zone 3 sacral insufficiency type pathologic fractures.
[2019-09-23] MEDS ORDERED: Morphine 2 MG/ML SYRINGE ONE ×2 (10:22→16:31)
[2019-09-23] MEDS ORDERED: Morphine 4 MG/ML VIAL ONE ×2 (10:22→12:36)
[2019-09-23] MEDS ORDERED: HYDROcodone/Acetaminophen 7.5/325 mg Tablet PO PRN (13:05)
[2019-09-23] MEDS ORDERED: Acetaminophen 325 MG TAB PO PRN (13:05)
[2019-09-23] MEDS ORDERED: ALPRAZolam 0.5 MG TAB PO PRN (13:10)
[2019-09-23] MEDS ORDERED: Simethicone Chewable 80 MG TAB PO PRN (13:10)
[2019-09-23] MEDS ORDERED: Sucralfate 1 GM TAB PO PRN (13:10)
[2019-09-23] MEDS ORDERED: Iopamidol-370 76% 500 ML 1 ML ONE (13:31)
[2019-09-23] MEDS ORDERED: fentaNYL 100 mcg/hour Patch TD SCH (14:00)
[2019-09-23] MEDS ORDERED: Senokot S 8.6-50 MG TAB PO PRN (14:33)
--- NOTE | 2019-09-23 17:57 | HP ---
CHIEF COMPLAINT: Pain in her back as well as along the left arm. HISTORY OF PRESENT ILLNESS: A 39-year-old female with a history of metastatic breast cancer with right breast, osseous metastatic disease as well as liver, presenting with ongoing pain on her left side. It is almost over a month, intermittently; now the last two weeks, it is more frequent. She takes Dilaudid at home that did not help her much. She had hospitalization in February 2019 for intractable pain and had bilateral sacroplasty surgery for pathological fracture on the S1 vertebral body. CT of the lumbar spine showed bilateral S1 zone 3 pathological fracture and disk bulges from L3-S1, bilateral pleural effusion. The patient denies any recent fever or productive cough. She is taking her chemo medication 2 weeks on, 1 week off, on Xeloda. REVIEW OF SYSTEMS: 13-point review of systems are addressed. She is having some loose stool at this time, but usually she is constipated. Denies any tingling, numbness, or headache. Rest of the review of system negative. ALLERGIES: SHE HAS NO KNOWN DRUG ALLERGIES. PAST MEDICAL HISTORY: 1. Metastatic breast cancer. 2. Hyperglycemia. 3. Metastases to the liver, lungs, bone, first diagnosed in 2008 and recurrence in 2017. 4. Hyperglycemia secondary to chemo agent. PAST SURGICAL HISTORY: 1. Right mastectomy with reconstruction. 2. Bilateral ovary removal and bilateral sacroplasty in February 2019 and multiple biopsies. SOCIAL HISTORY: No alcohol use or tobacco. FAMILY HISTORY: Negative for cancer. MEDICATIONS: 1. Fentanyl 100 mcg every three days. 2. Sucralfate 1 g q.i.d. p.r.n. 3. Protonix 40 mg daily. 4. Dilaudid 4 mg every 4 hours as needed. 5. Neurontin 300 mg twice a day. 6. Faslodex 250 mg every 30 days. 7. Zyrtec 10 mg daily. 8. Xanax 0.5 mg at bedtime as needed. PHYSICAL EXAMINATION: GENERAL: The patient is alert, oriented, not in any acute distress. HEENT: Pupils equal, round, and reactive to light. Anicteric. Mucous membranes moist. CARDIOVASCULAR: Regular rate and rhythm without murmurs, rubs, or gallops. LUNGS: Clear to auscultation bilaterally without wheezing, rales, or rhonchi. ABDOMEN: Soft, nontender, nondistended. Good bowel sounds. EXTREMITIES: Without any pitting edema. NEURO: No focal deficits. LABORATORY DATA: Sodium 135, creatinine 0.68. AST 56, ALT 25, alkaline phosphatase 450. Her WBC 4.2, hemoglobin 10.8, platelets 225. CT lumbar spine showed disk bulge at L3-S1. IMPRESSION AND PLAN: This is a 39-year-old female with metastatic breast cancer , presenting with the ongoing pain that is not relieved with her home regimen of Dilaudid as well as fentanyl patch. 1. Intractable pain secondary to cancer. 2. Osseous metastatic disease. 3. Hypercapnic metastases. 4. Primary breast cancer. 5. Bilateral pleural effusion. 6. Leukopenia. 7. Anemia of chronic inflammation/cancer. The patient is admitted. It appears that her pain responses better with morphine, so I initiated IV morphine. The patient currently has diarrhea, we will put stool softener as needed only at this time, and perhaps she would benefit with antidiarrheal. We will wait and make sure if she does have any episodes of watery diarrhea and need to rule out Clostridium difficile before giving her any loperamide. I have requested Dr. Duran, oncologist visit. Consulted, Dr. Rm, marketing analytics specialist for his input as well. I will also start her on her chemo drug Xeloda and if not available in our pharmacy, to resume her home regimen. Deep vein thrombosis prophylaxis with Lovenox. [Her creatinine is 0.68]. Full code. Job ID: [id number] [id number]
[2019-09-23 18:19] VITALS: BMI 26.8
[2019-09-23] MEDS: Gabapentin 300 MG CAP PO SCH (20:18)
[2019-09-23] MEDS: Morphine 2 MG/ML SYRINGE SLOW IVP PRN (20:58)
[2019-09-24] MEDS: Morphine 2 MG/ML SYRINGE SLOW IVP PRN ×4 (01:46→19:41)
[2019-09-24 03:43] LABS: #Eosinphils 0.1 thou/uL (0.0-0.7); #Monocytes 0.5 thou/uL (0.11-0.59); #Neutrophils 2.2 thou/uL (1.40-6.50); %Eosinophils 3.2 % (0.0-10.0); %Lymphocytes 25.4 % (21.0-51.0); %Monocytes 12.8 % (0.0-10.0); %Neutrophils 58.6 % (42.0-75.0); Hemoglobin 10.2 g/dL (12.0-16.0); Mean Corpuscular HGB CONC 32.1 g/dL (32.0-36.0); Mean Corpuscular Hemoglobin 33.3 pg (27.0-31.0); Mean Platelet Volume 8.8 fL (7.4-10.4); Platelet Count 212 thou/uL (130-400); RBC Distribution Width 21.3 % (11.5-14.5); Red Blood Cell (RBC) Count 3.07 mill/uL (4.20-5.40); White Blood Cell (WBC) Count 3.7 thou/uL (4.8-10.8)
[2019-09-24 04:32] LABS: Anion Gap 13 mmol/L (10-20); BUN (Urea Nitrogen) 8 mg/dL (7.0-18.7); Calc. Creatinine Clearance 114 mL/min (70-130); Calcium 8.8 mg/dL (7.8-10.44); Carbon Dioxide 27 mmol/L (22-29); Chloride 105 mmol/L (98-107); Estimated GFR-MDRD Greater than 90; Glucose 94 mg/dL (70-105); Potassium 4.5 mmol/L (3.5-5.1); Sodium 140 mmol/L (136-145)
[2019-09-24] MEDS ORDERED: HYDROcodone/Acetaminophen 10/325 mg Tablet PO PRN (05:19)
[2019-09-24] MEDS ORDERED: Sodium Chloride 0.9% 10 ML ONE (06:14)
--- NOTE | 2019-09-24 08:33 | MRI ---
MRI THORACIC SPINE WITHOUT CONTRAST: HISTORY: Left-sided chest pain. Back pain. Past medical history of metastatic breast cancer. COMPARISON: 03/15/2019. FINDINGS: There is a diffusely heterogeneous T1 marrow signal hypointensity involving the visualized thoracic v ertebrae. There is associated T2 hypointensity. Heterogeneous STIR hyperintensity is identified at T1, T2, T3, T4, T5, T6, T11 and T12. Additional although less extensive STIR hyperintensity is noted at T8 and T9 as well as T10. Correlation made with recent CT of the chest demonstrates extensive thoracic sclerosis. Findings may represent treated metastases. There does not appear to be a patholog ic fracture at this time. No significant loss of vertebral body height. No evidence of retropulsion. The limited evaluation of the mediastinum on this exam. No obvious masses or lymphadenopathy. There i s a large right and small left pleural effusion. Adjacent lung parenchymal changes are suspected. Extensive T2 hyperintense lesions are noted in the visualized hepatic parenchyma. The thoracic cord has a normal size and signal intensity. No evidence of intramedullary metastases. N o cord malacia. No cord expansion. No cord hyperintensity in the axial T2-weighted images. There appears be moderate right neural foraminal narrowing at thoracic T10-T11. Remaining neural fora bairon are patent. There is no evidence of significant central canal stenosis, throughout the thoracic spine. There does appear to be significant central canal stenosis at the C6-C7 level, incompletely evaluated . Previously suggested soft tissue density at the T10-T11, T11-T12 levels is less evident. There is sti ll mild central canal stenosis at T10-T11 predominantly due to degenerative change. The degree of central canal stenosis is slightly less evident at T10-T11 as well as T11-T12. IMPRESSION: 1. Findings compatible with multifocal osseous metastases. Sclerosis on previous CT suggests possibl e treated metastases. No associated pathologic fracture. 2. Bilateral pleural effusions. 3. Multifocal hepatic metastases. 4. Improvement in terms of the overall degree of central canal stenosis at T10-T11, T11-T12. 5. Moderate right neural foraminal narrowing at T10-T11 predominantly due to disc material. Transcribed Date/Time: 09/24/2019 8:54 AM
[2019-09-24] MEDS ORDERED: ALPELISIB PO SCH (09:00)
[2019-09-24] MEDS: fentaNYL 100 mcg/hour Patch TD SCH (09:50)
[2019-09-24] MEDS: Enoxaparin Sodium 40 MG/0.4 ML SYRINGE SC SCH (09:54)
[2019-09-24] MEDS: Loratadine 10 MG TAB PO SCH (09:55)
[2019-09-24] MEDS ORDERED: PROVENTIL INHALER 6.7 G (200 INHALATIONS) INH PRN (09:55)
[2019-09-24] MEDS: Gabapentin 300 MG CAP PO SCH ×2 (09:55→21:22)
[2019-09-24] MEDS: fentaNYL 50 mcg/hour Patch TD SCH (11:47)
--- NOTE | 2019-09-24 12:28 | PDOC.HOSPP ---
- Subjective Encounter Date: 09/24/19 Encounter Time: 08:50 Subjective: discomfort still ont he left side, mri rept d/w pt and her brother. will try baclofen to relieve the discomfort as her discomfort more on the sides rather than near the spine. on morphine and dilaudid. - Objective Vital Signs & Weight: Vital Signs (12 hours) Temp Pulse Resp BP Pulse Ox 09/24/19 11:15 97.8 F 97 16 113/83 97 09/24/19 07:30 97.9 F 83 16 112/70 98 09/24/19 04:00 98.5 F 85 18 117/71 99 Weight Weight 146 lb 11.2 oz I&O: 09/23/19 09/24/19 09/25/19 06:59 06:59 06:59 Intake Total 482 240 Output Total 1500 Balance -1018 240 Result Diagrams: 09/24/19 03:24 09/24/19 03:24 Hospitalist ROS - Medication Medications: Active Medications Generic Name Dose Route Start Last Admin Trade Name Freq PRN Reason Stop Dose Admin Albuterol Sulfate 1 puff 09/24/19 09:55 09/24/19 11:33 Proventil Hfa INH 1 puff Q4H PRN Administration SOB Enoxaparin Sodium 40 mg 09/24/19 09:00 09/24/19 09:54 Lovenox SC 40 mg 0900 ODILON Administration Fentanyl 100 mcg 09/24/19 09:00 09/24/19 09:50 Duragesic TD 100 mcg Q3D ODILON Administration Fentanyl 50 mcg 09/24/19 09:00 09/24/19 11:47 Duragesic TD 50 mcg Q3D ODILON Administration Gabapentin 300 mg 09/23/19 21:00 09/24/19 09:55 Neurontin PO 300 mg BID ODILON Administration Loratadine 10 mg 09/24/19 09:00 09/24/19 09:55 Claritin PO 10 mg DAILY ODILON Administration Morphine Sulfate 2 mg 09/23/19 14:32 09/24/19 10:26 Morphine SLOW IVP 2 mg Q4H PRN Administration Pain Pantoprazole Sodium 40 mg 09/24/19 09:00 09/24/19 09:55 Protonix PO 40 mg DAILY ODILON Administration - Exam General Appearance: awake alert Eye: PERRL ENT: normocephalic atraumatic Neck: supple Heart: RRR Respiratory: no tachypnea Gastrointestinal: normal bowel sounds Neurological: cranial nerve grossly intact, no focal deficits Psychiatric: normal affect Hosp A/P - Plan Cancer related pain Breast cancer, 1ary Mets to bone, and liver Anemia of cancer b/l pLeural effusion --on anlagesic and stool softener as needed --muscle relaxant as needed. --MRI report reviewed and updated the pt --Onc and Pain mgmt on board.
[2019-09-24] MEDS: Baclofen 10 MG TAB PO PRN (12:48)
[2019-09-24] MEDS: Simethicone Chewable 80 MG TAB PO PRN (14:38)
[2019-09-24] MEDS: HYDROmorphone 2 MG TAB PO PRN (17:00)
--- NOTE | 2019-09-24 17:12 | CON ---
DATE OF CONSULTATION: 09/24/2019 CHIEF COMPLAINT: Thoracic pain with left chest wall and left breast pain. This is a pain management consult. HISTORY OF PRESENT ILLNESS: The patient is a 39-year-old female, who is known to us from outpatient clinic in Pain Management with a history of breast cancer with metastatic disease to multiple sites including her bone, liver and lung. We have treated her in the past with medications as well as interventional procedures. She has undergone sacroplasty for pathological sacral fractures back in the fall and did well with that, her sacral pain resolved. She continued to have ongoing chronic pain from her metastatic disease, which she has been on a medication regimen of fentanyl 100 mcg Duragesic q.72 hours with hydromorphone 4 mg tablets one q.4 to 6 hours for breakthrough pain as well as gabapentin 300 mg a day and Flexeril at times. She has had to increase her Duragesic patch to as high as 150 mcg q.72 hours when her pain is severe. Overall, she has tolerated the medication regimen well with no adverse reactions reported other than increased sedation on the neuropathic medications. Most recently, she was evaluated in the emergency room for left-sided thoracic pain, that radiates into the left axilla toward the left breast, that started approximately 2 weeks ago with no precipitating event. There has been no report of recent falls or other traumatic injuries. The patient reports the pain is sharp , stabbing and radiating, and she also felt some radiating pain on the left arm from the shoulder to the elbow at times. There is no associated weakness, no clumsiness or dropping items reported. The pain is fairly constant with no alleviating or aggravating factors identified. Pain today is rated as 7/10. She reports while she was at home, she increased her medication regiment to fentanyl 150 mcg Duragesic q.72 hours and was taking her hydromorphone 4 mg tablets every 4 hours [id number] with no relief of this new pain. She was evaluated in the ER where a lumbar CT was done in the emergency room, which indicated bilateral S1 zone 3 sacral insufficiency pathological fractures as well as some disk bulges at varying degrees at L3-L4, L4-L5 and L5-S1 with moderate neuroforaminal narrowing. The patient denies any lumbar sacral pain today. Pain Management has been consulted for evaluation of this new pain to rule out any pathological fracture that may be contributing to her pain. REVIEW OF SYSTEMS: 12-point review of systems was reviewed, all are negative except pertinent findings in above HPI. ALLERGIES: NO KNOWN DRUG ALLERGIES. PAST MEDICAL HISTORY: Metastatic breast cancer with metastasis to liver, lungs and bone, which was first diagnosed in 2008 and had recurrence in 2017, asthma, hyperglycemia secondary to chemotherapy. PAST SURGICAL HISTORY: Right breast mastectomy with reconstructive surgery in December 2008, salpingo-oophorectomy bilaterally in August 2017, bilateral sacroplasty for S1 vertebral body pathological fracture in February 2019, MediPort placement, and multiple biopsies. FAMILY HISTORY: Positive for asthma, diabetes, hypertension, and heart disease. SOCIAL HISTORY: The patient is single; she lives at home with her son; no use of alcohol, drugs or other IV drug use. MEDICATIONS: She is currently on, 1. Fentanyl 100 mcg Duragesic q.72 hours with IV morphine 2 mg IV push for breakthrough pain. 2. Gabapentin 300 mg b.i.d. 3. Lovenox. 4. Xanax. 5. Hydrocodone 10/325 mg tablets for breakthrough pain. 6. Tylenol. 7. Zyrtec. 8. Hiller 10/325 for BTP PHYSICAL EXAMINATION: GENERAL: The patient is sitting up in her bed, she is alert and oriented x3, and appears to be in no distress. VITAL SIGNS: Stable with a blood pressure of 117/71, temp is 98.5, heart rate is 85, and respirations are 18. CARDIOVASCULAR SYSTEM: Peripheral vascular disease is normal. Pulses with no peripheral vascular swelling, tenderness or edema. Skin is warm and dry. RESPIRATORY: Effort is normal with no distress. No chest wall pain to palpation. Skin is normal turgor, warm and dry with no masses, rashes or edema. SPINE: Cervical spine; normal to inspection, range of motion is normal in all directions, there is some mild pain with left lateral rotation. Motor strength in bilateral upper extremities is 5/5. Paraspinal muscle spasms are absent bilaterally. Trapezius tenderness noted on the left with some scapular tenderness as well. Thoracic spine; some tenderness to palpation in the T3, T4, T5 vertebral bodies. Range of motion remains full without any limitations. She does have some discomfort with flexion and extension. Lumbar spine; there is no acute vertebral body tenderness to palpation, has some diffuse sacral tenderness; however, no localized tenderness. Lower extremity strength bilaterally 5/5. Gait is not assessed as she is lying in bed. Sensory exam is normal in bilateral lower extremities. SI joints with some bilateral tenderness, mild. NEUROLOGICAL: Cortical functions, she is alert and oriented x3, clonus is negative, no involuntary tremors seen, sensory is intact bilaterally to upper and lower extremities. LABORATORY DATA: Laboratory data was reviewed, Imaging : Lumbar CT-spine has been completed which indicated again some disk bulges at multiple levels with varying degrees of foraminal narrowing reported. It is reported old sacroplasty, which was completed back in the fall; however, no new pathologic fractures reported on lumbar CT. ASSESSMENT AND PLAN: This is a 39-year-old female, known to our clinic with history of metastatic breast disease, presenting to the emergency room with new onset of left-sided thoracic pain, which is radiating toward the left lateral chest wall into the left breast. Her home regiment of pain medications including fentanyl 150 mcg Duragesic with oral hydromorphone 4 mg for breakthrough pain was not controlling the pain, therefore, she was evaluated in the emergency room. MRI of the thoracic spine was ordered, completed this morning. Dr. Rm did review the imaging, which indicated no new pathological fractures identified on the thoracic MRI. Findings are compatible with multifocal osseous metastasis, bilateral pleural effusions, multifocal hepatic metastasis with central canal stenosis at T10, T11, T11-T12, and a moderate right neuroforaminal narrowing at T10 and T11. The patient's pain is likely resulting from her metastatic disease again as there are no new fractures identified on thoracic imaging. Recommendation to continue pain control with narcotic medications. We will continue fentanyl 150 mcg Duragesic q.72 hours. I will discontinue the hydrocodone and start her back on her oral hydromorphone 4 mg tablets one p.o. q.4 to 6 for breakthrough pain. Plan to continue her gabapentin. She has been started on baclofen earlier today, we will see if that provides any relief. If not, consider muscle relaxants including tizanidine or cyclobenzaprine, she has been on these in the past with some relief. Job ID: [id number] [facility]
--- NOTE | 2019-09-24 18:47 | CON ---
DATE OF CONSULTATION: REASON FOR CONSULT: Metastatic breast cancer. HISTORY OF PRESENT ILLNESS: Mrs. 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 She has widespread osseous metastasis. She is followed by pain management for her back pain. Her current chemotherapy is oral Xeloda b.i.d. She is two weeks on and 1 week off. She is currently in her second week. She also gets Xgeva every month. She had worsening back pain and presented to the ER for evaluation. Her CT angio of the chest was negative for pulmonary emboli. She did have bilateral pleural effusions, extensive liver and bone mets. She underwent a lumbar spine CT which showed bilateral S1 zone 3 sacral sufficiently type pathological fractures. She underwent a thoracic MRI, which showed no thoracic fracture. There was actually overall improvement in the central canal stenosis of T10, 11, and 12. Pain Management was consulted. We were asked to see the patient for recommendations. She is comfortable in bed, eating her lunch, has pain that radiates from her back to her left axilla and left breast. PAST MEDICAL HISTORY: 1. Metastatic right breast cancer with extensive bone metastasis. 2. Insomnia. 3. Asthma. 4. Intractable pain. PAST SURGICAL HISTORY: Right mastectomy. ALLERGIES: NO KNOWN DRUG ALLERGIES. HOME MEDICATIONS: 1. Xeloda. 2. Xanax 0.5. 3. Vitamin D. 4. Sucralfate. 5. Fentanyl patch. 6. Dilaudid p.r.n. FAMILY HISTORY: Noncontributory. SOCIAL HISTORY: Single, one child. No alcohol, tobacco, or illicit drug use. REVIEW OF SYSTEMS: A 10-point review of systems is negative, except for noted in HPI. PHYSICAL EXAMINATION: VITAL SIGNS: Temperature 97.8, pulse 97, respiratory rate 16, BP is 113/83, and she is 97% on room air. GENERAL: This is a well-developed, well-nourished female, in no acute distress. HEENT: Normocephalic and atraumatic. Pupils are equal and reactive to light. NECK: Supple. CVS: Regular rate and rhythm. LUNGS: Clear. ABDOMEN: Soft and nontender. Bowel sounds are positive. EXTREMITIES: There is no clubbing or cyanosis. SKIN: No rash. CHEST: There are no palpable masses in her left breast. She has an implant in her right breast. NEUROLOGIC: Nonfocal. PERTINENT LABORATORIES AND X-RAYS: Current WBCs are 3.7, hemoglobin 10.2, hematocrit 31.9, platelet count is 212,000, she has 58% neutrophils, 25% lymphocytes. Sodium is 140, potassium 4.5, chloride 105, CO2 is 27, BUN is 8, creatinine 0.7, calcium 8.8, bilirubin 0.6, AST is 56, ALT is 26, and alk phos is 450. Serum total protein 7.8, albumin 3.8, and globulin 4.0. Radiology per HPI. ASSESSMENT: 1. Metastatic breast cancer, currently on Xeloda. 2. Back pain secondary to bone metastasis. DISCUSSION: The patient's pain is managed by Dr. Rm. His nurse practitioner has seen her in the hospital and is adjusting her pain medications. She should continue her Xeloda while she is an inpatient. She is not neutropenic from this medication. She is on her second week and will have next week off. I will give her Xgeva, which is currently due and usually administered by the hospital. She can be discharged once her pain has been controlled. Thank you for the consult. Job ID: [id number] [email or web address]
[2019-09-25] MEDS: HYDROmorphone 2 MG TAB PO PRN ×3 (01:44→19:23)
[2019-09-25] MEDS: Simethicone Chewable 80 MG TAB PO PRN ×2 (01:48→17:39)
[2019-09-25] MEDS: Gabapentin 300 MG CAP PO SCH ×2 (09:03→20:44)
[2019-09-25] MEDS: Loratadine 10 MG TAB PO SCH (09:03)
[2019-09-25] MEDS: Morphine 2 MG/ML SYRINGE SLOW IVP PRN ×2 (09:04→16:30)
[2019-09-25] MEDS: Enoxaparin Sodium 40 MG/0.4 ML SYRINGE SC SCH (09:04)
[2019-09-25] MEDS: Docusate 100 MG CAP PO PRN (09:10)
--- NOTE | 2019-09-25 11:54 | PDOC.HOSPP ---
- Subjective Encounter Date: 09/25/19 Encounter Time: 11:40 Subjective: f/u for back pain in context of widely metastatic breast CA with osseous and liver involvement on current Xeloda. States L scapular and upper back predominance with some radiation into L axilla and breast region. No fever or cough. - Objective Vital Signs & Weight: Vital Signs (12 hours) Temp Pulse Resp BP BP BP BP 09/25/19 11:05 98.7 F 96 16 115/59 L 09/25/19 08:00 98.3 F 102 H 18 107/59 L 09/25/19 07:58 98.3 F 102 H 18 107/59 L 09/25/19 04:00 97.9 F 88 16 100/64 09/24/19 23:59 98.4 F 100 16 101/61 Pulse Ox 09/25/19 11:05 98 09/25/19 08:00 97 09/25/19 07:58 97 09/25/19 04:00 98 09/24/19 23:59 95 Weight Admit Weight 146 lb 11.2 oz Weight 146 lb 11.2 oz I&O: 09/24/19 09/25/19 09/26/19 06:59 06:59 06:59 Intake Total 482 2201 Output Total 1500 Balance -1018 2201 Result Diagrams: 09/24/19 03:24 09/24/19 03:24 Radiology Reviewed by me: Yes (MRI T-spine - osseous metastatic dz, no acute fx) Hospitalist ROS - Medication Medications: Active Medications Generic Name Dose Route Start Last Admin Trade Name Freq PRN Reason Stop Dose Admin Albuterol Sulfate 1 puff 09/24/19 09:55 09/24/19 11:33 Proventil Hfa INH 1 puff Q4H PRN Administration SOB Baclofen 10 mg 09/24/19 12:28 09/24/19 12:48 Lioresal PO 10 mg BIDPRN PRN Administration Muscle Spasm Docusate Sodium 100 mg 09/24/19 13:52 09/25/19 09:10 Colace PO 100 mg BIDPRN PRN Administration CONSTIPATION Enoxaparin Sodium 40 mg 09/24/19 09:00 09/25/19 09:04 Lovenox SC 40 mg 0900 ODILON Administration Fentanyl 100 mcg 09/24/19 09:00 09/24/19 09:50 Duragesic TD 100 mcg Q3D ODILON Administration Fentanyl 50 mcg 09/24/19 09:00 09/24/19 11:47 Duragesic TD 50 mcg Q3D ODILON Administration Gabapentin 300 mg 09/23/19 21:00 09/25/19 09:03 Neurontin PO 300 mg BID ODILON Administration Hydromorphone HCl 4 mg 09/24/19 13:51 09/25/19 01:44 Dilaudid PO 4 mg Q4H PRN Administration FOR BTP Loratadine 10 mg 09/24/19 09:00 09/25/19 09:03 Claritin PO 10 mg DAILY ODILON Administration Morphine Sulfate 2 mg 09/23/19 14:32 09/25/19 09:04 Morphine SLOW IVP 2 mg Q4H PRN Administration Pain Pantoprazole Sodium 40 mg 09/24/19 09:00 09/25/19 09:04 Protonix PO 40 mg DAILY ODILON Administration Simethicone 160 mg 09/24/19 13:52 09/25/19 01:48 Mylicon Chewable PO 160 mg Q12H PRN Administration Gas Pain Sodium Chloride 10 ml 09/24/19 21:00 09/25/19 09:04 Flush - Normal Saline IVF 10 ml Q12HR ODILON Administration - Exam General Appearance: NAD, awake alert Eye: PERRL, anicteric sclera ENT: normocephalic atraumatic, no oropharyngeal lesions Neck: supple, symmetric, no JVD, no thyromegaly Heart: RRR, no murmur, no gallops, no rubs, normal peripheral pulses Respiratory: CTAB, no wheezes, no rales, no ronchi, normal chest expansion, no tachypnea Gastrointestinal: soft, non-tender, non-distended, normal bowel sounds, no palpable masses Extremities: no cyanosis, no clubbing, no edema Skin: normal turgor, no lesions Neurological: cranial nerve grossly intact, no new deficit Musculoskeletal: normal tone, normal strength, no muscle wasting Psychiatric: normal affect, A&O x 3 Hosp A/P (1) Cancer associated pain Code(s): G89.3 - NEOPLASM RELATED PAIN (ACUTE) (CHRONIC) Status: Chronic Plan: Continue pain mgmt with Duragesic, Hydromorphone, Gabapentin, add Lidocaine Patch daily (2) Bone metastases Code(s): C79.51 - SECONDARY MALIGNANT NEOPLASM OF BONE Status: Chronic Plan: Continue Xeloda (3) Pathological fracture of sacral vertebra Code(s): M84.48XA - PATHOLOGICAL FRACTURE, OTHER SITE, INIT ENCNTR FOR FRACTURE Status: Acute Plan: Pain control symptom mgmt (4) Malignant neoplasm of female breast Code(s): C50.919 - MALIGNANT NEOPLASM OF UNSP SITE OF UNSPECIFIED FEMALE BREAST Status: Chronic Plan: Continue Xeloda, appreciate medical oncology assistance - Plan social work specialist, out of bed/ambulate, DVT proph w/SCDs Stable currently Titrate pain regimen to clinical response Add Lidocaine Patch 5% daily K-pad for sx relief Add Miralax daily
[2019-09-25] MEDS: Baclofen 10 MG TAB PO PRN (12:13)
[2019-09-25] MEDS: Lidocaine 5% Patch TD SCH (13:27)
[2019-09-25] MEDS ORDERED: Cyclobenzaprine 10 MG TAB PO SCH (17:30)
[2019-09-25] MEDS ORDERED: Saccharomyces boulardii 250 MG CAP PO SCH (18:00)
[2019-09-26] MEDS: Lidocaine Patch Removal 1 EACH TOP SCH (05:14)
[2019-09-26] MEDS: HYDROmorphone 2 MG TAB PO PRN ×3 (08:45→19:39)
[2019-09-26] MEDS: Gabapentin 300 MG CAP PO SCH ×2 (08:47→20:37)
[2019-09-26] MEDS: Saccharomyces boulardii 250 MG CAP PO SCH (08:47)
[2019-09-26] MEDS: Enoxaparin Sodium 40 MG/0.4 ML SYRINGE SC SCH (08:48)
[2019-09-26] MEDS: Loratadine 10 MG TAB PO SCH (08:48)
[2019-09-26] MEDS: Polyethylene Glycol 3350 17 GM Packet PO SCH (08:48)
[2019-09-26] MEDS: Docusate 100 MG CAP PO PRN ×2 (08:51→20:37)
[2019-09-26] MEDS ORDERED: Cyclobenzaprine 10 MG TAB PO SCH (09:00)
[2019-09-26] MEDS: Cyclobenzaprine 10 MG TAB PO PRN ×2 (11:54→20:38)
--- NOTE | 2019-09-26 12:36 | PRG ---
DATE OF SERVICE: 09/26/2019 SUBJECTIVE: The patient reports she rested well last night with no interruptions from her pain. She was started on cyclobenzaprine 10 mg, which seems to have improved her left scapular pain during the night. This morning, her pain is a 6/10, which has improved from yesterday. She continues to report some upper thoracic pain associated with radiating pain toward the scapular region in the left breast. She denies any upper extremity weakness associated with this pain. She is currently on fentanyl 150 mcg Duragesic q.72 hours with Dilaudid 4 mg tablets as needed one every 4 to 6 hours for breakthrough. It looks as though she has taken two Dilaudid in the past 24 hours. We discontinued the baclofen yesterday and started cyclobenzaprine secondary to no improvement with the baclofen. She continues to tolerate the gabapentin 300 mg b.i.d. She has not had a bowel movement today. She was started on Colace and MiraLAX yesterday for constipation. Her oral intake is good. She is having moving around the room and going to the restroom as needed. Oncology has seen the patient and said she is stable for discharge when her pain is controlled. OBJECTIVE: VITAL SIGNS: Stable. Blood pressure is 126/77, heart rate 108, respirations are 18. She is 98% on room air and she has a temperature of 99 orally today. GENERAL: The patient is sitting up in bed, appears to be in no distress, family is at the bedside visiting. CARDIOVASCULAR: Peripheral vascular system is normal. Pulses with no peripheral vascular swelling, tenderness, or edema. SKIN: Warm and dry. RESPIRATORY: Effort is normal with no distress. No chest wall pain to palpation. SKIN: Normal turgor, warm and dry with no masses, rashes, or edema. SPINE: Cervical spine; normal to inspection, range of motion is full. There is motor strength 5/5 in bilateral upper extremities. Paraspinal muscle spasms are absent bilaterally. Trapezius tenderness present on the left, scapular tenderness present on the left. Thoracic spine; some diffuse tenderness in the upper thoracic region down to about T8, no pain with thoracic vertebral body compression. Lumbar spine; no acute vertebral body tenderness with palpation, has some mild sacral tenderness with palpation. EXTREMITIES: Lower extremity strength 5/5 and equal. Gait is not assessed. She is lying in bed. Sensory exam is normal in bilateral lower extremities. SI joints, nontender. NEUROLOGIC: Assessment is intact. She is alert and oriented x3. Clonus is negative. Reflexes intact at bilateral upper extremities with no involuntary tremors noted. LABORATORY DATA: No new laboratory data to review. ASSESSMENT: 1. Chronic pain. 2. Breast cancer with metastatic disease. 3. Bone metastasis. PLAN: Plan is to continue her current dose of fentanyl at 150 mcg Duragesic q.72 hours. I encouraged her to continue to ask for Dilaudid 4 mg tablets for breakthrough pain every 4 to 6 hours to control this breakthrough pain. It was offered to be scheduled. However, she continues to like the dose on an as-needed basis. We will continue the cyclobenzaprine 10 mg t.i.d. as needed as this did provide some relief last night for her pain. Discussed options of increasing the Duragesic to 175 mcg q.72 hours. However, we will only do this if the increased use of Dilaudid every 4 to 6 hours is not controlling her pain. I agree with continue Lidoderm patch as this might help with some topical relief of her pain in the scapular region. Once her pain is controlled, the patient is okay to discharge, will follow up in our clinic following discharge for a medication adjustments as needed. The patient continues to be appropriate for medication management for chronic pain. Again, there is no interventional procedures recommended at this time. Job ID: [id number]
[2019-09-26] MEDS: Lidocaine 5% Patch TD SCH ×2 (13:27→15:42)
--- NOTE | 2019-09-26 14:16 | PDOC.HOSPP ---
- Subjective Encounter Date: 09/26/19 Encounter Time: 14:05 Subjective: f/u for L scapula/back/axillary pain likely myalgia tx with Flexeril, Hydromorphone, Lidocaine patch, Gabapentin. States some improvement overall and slept the whole night last pm. - Objective Vital Signs & Weight: Vital Signs (12 hours) Temp Pulse Resp BP Pulse Ox 09/26/19 08:50 108 H 09/26/19 08:00 99.0 F 108 H 18 126/77 98 Weight Admit Weight 146 lb 11.2 oz Weight 146 lb 11.2 oz I&O: 09/25/19 09/26/19 09/27/19 06:59 06:59 06:59 Intake Total 2201 1060 Balance 2201 1060 Result Diagrams: 09/24/19 03:24 09/24/19 03:24 Additional Labs: Microbiology 08/25/18 23:00 Urine voided Urine Culture - Final NO GROWTH AT 36 HOURS 08/24/18 10:20 Nasopharyngeal swab Influenza Types A,B Direct EIA - Final 08/16/18 17:53 Stool - Pending Stool Occult Blood ([facility]) - Final 08/16/18 17:53 Stool - Pending Stool Lactoferrin - Final 08/16/18 17:53 Stool - Pending Stool Culture - Final 08/16/18 17:53 Stool - Pending Escherichia coli 0157 Culture - Final 08/16/18 17:53 Stool - Pending Campylobacter Antigen Assay - Final 08/16/18 17:53 Stool - Pending Shiga Toxin Test - Final 08/16/18 17:53 Stool - Pending C. difficile GDH Antigen & Toxins - Final 08/25/18 23:00 Urine voided Urine Culture - Preliminary NO GROWTH AT 12 HOURS 08/25/18 22:37 Venous blood - Left Hand Blood Culture - Preliminary Specimen has been received and culture in progress. No Growth to date. 08/25/18 22:37 Venous blood - Left Arm Blood Culture - Preliminary Specimen has been received and culture in progress. No Growth to date. Laboratory Tests 08/18/18 08/19/18 08:33 04:18 Potassium 3.1 L 3.3 L Hospitalist ROS - Medication Medications: Active Medications Generic Name Dose Route Start Last Admin Trade Name Freq PRN Reason Stop Dose Admin Albuterol Sulfate 1 puff 09/24/19 09:55 09/24/19 11:33 Proventil Hfa INH 1 puff Q4H PRN Administration SOB Cyclobenzaprine HCl 10 mg 09/25/19 18:48 09/26/19 11:54 Flexeril PO 10 mg Q8H PRN Administration Muscle Spasm Docusate Sodium 100 mg 09/24/19 13:52 09/26/19 08:51 Colace PO 100 mg BIDPRN PRN Administration CONSTIPATION Enoxaparin Sodium 40 mg 09/24/19 09:00 09/26/19 08:48 Lovenox SC 40 mg 0900 ODILON Administration Fentanyl 100 mcg 09/24/19 09:00 09/24/19 09:50 Duragesic TD 100 mcg Q3D ODILON Administration Fentanyl 50 mcg 09/24/19 09:00 09/24/19 11:47 Duragesic TD 50 mcg Q3D ODILON Administration Gabapentin 300 mg 09/23/19 21:00 09/26/19 08:47 Neurontin PO 300 mg BID ODILON Administration Hydromorphone HCl 4 mg 09/24/19 13:51 09/26/19 14:08 Dilaudid PO 4 mg Q4H PRN Administration FOR BTP Lidocaine 1 patch 09/25/19 13:00 09/25/19 13:27 Lidoderm 5% Patch TD 1 patch 1300 ODILON Administration Loratadine 10 mg 09/24/19 09:00 09/26/19 08:48 Claritin PO 10 mg DAILY ODILON Administration Miscellaneous Medication 1 each 09/26/19 01:00 09/26/19 05:14 Lidocaine Patch Removal TOP Not Given 0100 [facility] Morphine Sulfate 2 mg 09/23/19 14:32 09/25/19 16:30 Morphine SLOW IVP 2 mg Q4H PRN Administration Pain Pantoprazole Sodium 40 mg 09/24/19 09:00 09/26/19 08:47 Protonix PO 40 mg DAILY ODILON Administration Polyethylene Glycol 17 gm 09/26/19 09:00 09/26/19 08:48 Miralax PO 17 gm DAILY ODILON Administration Saccharomyces Boulardii 250 mg 09/26/19 09:00 09/26/19 08:47 Florastor PO 250 mg DAILY ODILON Administration Simethicone 160 mg 09/24/19 13:52 09/25/19 17:39 Mylicon Chewable PO 160 mg Q12H PRN Administration Gas Pain Sodium Chloride 10 ml 09/24/19 21:00 09/26/19 08:48 Flush - Normal Saline IVF 10 ml Q12HR ODILON Administration - Exam General Appearance: NAD, awake alert General - other findings: smiling Eye: PERRL, anicteric sclera ENT: normocephalic atraumatic, no oropharyngeal lesions Neck: supple, symmetric, no JVD, no thyromegaly, no lymphadenopathy Heart: RRR, no murmur, no gallops, no rubs, normal peripheral pulses Respiratory: CTAB, no wheezes, no rales, no ronchi, normal chest expansion Gastrointestinal: soft, non-tender, non-distended, normal bowel sounds, no palpable masses, no guarding Extremities: no cyanosis, no clubbing, no edema Skin: normal turgor, no lesions Neurological: cranial nerve grossly intact, no new deficit Musculoskeletal: normal tone, normal strength, no muscle wasting Musculoskeletal - other findings: mild TTP in L axillary region Psychiatric: normal affect, A&O x 3 Hosp A/P (1) Cancer associated pain Code(s): G89.3 - NEOPLASM RELATED PAIN (ACUTE) (CHRONIC) Status: Chronic Plan: Symptomatic mgmt, Flexeril/Gabapentin/Hydromorphone (2) Bone metastases Code(s): C79.51 - SECONDARY MALIGNANT NEOPLASM OF BONE Status: Chronic (3) Pathological fracture of sacral vertebra Code(s): M84.48XA - PATHOLOGICAL FRACTURE, OTHER SITE, INIT ENCNTR FOR FRACTURE Status: Acute (4) Malignant neoplasm of female breast Code(s): C50.919 - MALIGNANT NEOPLASM OF UNSP SITE OF UNSPECIFIED FEMALE BREAST Status: Chronic - Plan plan discussed w/ family, long term care social worker, out of bed/ambulate, DVT proph w/SCDs Stable currently Titrate pain regimen to clinical response Add Lidocaine Patch 5% daily Flexeril 10mg TID PRN OOB/ambulate K-pad for sx relief Add Miralax daily Florastor daily Likely home in 24h
[2019-09-26] MEDS: Simethicone Chewable 80 MG TAB PO PRN (20:37)
[2019-09-27] MEDS: HYDROmorphone 2 MG TAB PO PRN ×4 (00:48→20:27)
[2019-09-27] MEDS: Lidocaine Patch Removal 1 EACH TOP SCH (03:00)
[2019-09-27] MEDS: Morphine 2 MG/ML SYRINGE SLOW IVP PRN ×2 (03:02→16:01)
[2019-09-27] MEDS: Cyclobenzaprine 10 MG TAB PO PRN ×2 (04:36→23:56)
[2019-09-27] MEDS: Saccharomyces boulardii 250 MG CAP PO SCH (09:03)
[2019-09-27] MEDS: Gabapentin 300 MG CAP PO SCH ×2 (09:03→20:27)
[2019-09-27] MEDS: Loratadine 10 MG TAB PO SCH (09:04)
[2019-09-27] MEDS: Polyethylene Glycol 3350 17 GM Packet PO SCH (09:04)
[2019-09-27] MEDS: Enoxaparin Sodium 40 MG/0.4 ML SYRINGE SC SCH (09:04)
[2019-09-27] MEDS: fentaNYL 50 mcg/hour Patch TD SCH (10:17)
[2019-09-27] MEDS: fentaNYL 100 mcg/hour Patch TD SCH (10:19)
[2019-09-27] MEDS: Lidocaine 5% Patch TD SCH (12:37)
--- NOTE | 2019-09-27 14:57 | RAD ---
Exam: Left knee 4 views: HISTORY: Pain FINDINGS: There are patchy sclerotic changes in the distal femur particularly the medial femoral metaphysis as well as a mixed sclerotic and lytic process involving the medial tibial plateau as well as other areas within the visualized femur tibia and fibula which shows some heterogeneous sclerotic changes a ll worrisome for metastatic disease. No evidence for pathologic fracture. IMPRESSION: Patchy sclerotic and minimal lytic changes involving the visualized femur, tibia, and fibula evidence for bone metastasis. No pathologic fracture.
[2019-09-27] MEDS ORDERED: fentaNYL 100 mcg/hour Patch TD SCH (15:15)
[2019-09-27] MEDS ORDERED: fentaNYL 50 mcg/hour Patch TD SCH (15:15)
--- NOTE | 2019-09-27 16:06 | MRI ---
MRI CERVICAL SPINE WITHOUT CONTRAST: Indications: Neck pain. History of metastatic breast cancer with previously documented osseous metaph ysis. This is history is not provided on the order. Comparison: Multiple other studies, MRIs of thoracic and lumbar spine. Comparison is made to prior MR I of the cervical spine, 2017. FINDINGS: The cervical vertebrae maintain height and alignment. Abnormal signal seen throughout all visualized cervical vertebrae consistent with the known history of osseous metastasis. There are anterior osteop hytes. Posterior disc bulge and spondolytic changes are prominent at multiple levels as described below: C2-3: Mild posterior spondylosis effaces the anterior subarachnoid space and abuts the cord. Foramina are patent. C3-4: Disc bulge and spondylytic efface the anterior subarachnoid space. These changes abutt the cord centrally. No foraminal stenosis. C4-5: Disc bulge and spondylytic change impinge on the cord mildly compressing the anterior cord. No significant foraminal stenosis. C5-6: Prominent disc and spondylytic change compression the cord producing mild flattening of the cor d. There is mild bilateral foraminal stenosis. C6-7: Disc bulge and spondylytic change compress the cord producing mild flattening of the cord. Mild foraminal narrowing. C7-T1: No significant disc or spondylolytic change. The cord signal appears normally maintained. IMPRESSION: 1. Posterior disc bulge and spondylosis are seen at multiple levels. These findings impinge on the co rd at C4-5, C5-6 and C6-7 with cord compression most pronounced at C5-6 and C6-7 levels. 2. Again noted is evidence of a diffuse metastatic disease involving the cervical spine which has bee n described on MRI of thoracic and lumbar spine. POS: [facility]
[2019-09-27] MEDS ORDERED: Bacteriostatic Water 30 ML VIAL FS PRN (18:11)
[2019-09-27] MEDS ORDERED: methylPREDNISolone Sod Succ/PF 125 MG/2 ML VIAL IVP SCH (18:15)
[2019-09-27] MEDS ORDERED: methylPREDNISolone Sod Succ 40 MG VIAL IVP SCH (18:15)
[2019-09-27] MEDS ORDERED: Bisacodyl 10 MG SUPP PR PRN (19:26)
--- NOTE | 2019-09-27 19:29 | PDOC.HOSPP ---
- Subjective Encounter Date: 09/27/19 Encounter Time: 19:15 Subjective: f/u for L scapular/back/axillary pain variably improved with multiple sedating medications. Pain in L axillary region most noticeable but states she has been sleeping and somnolent most of the day. No BM in 3 days. - Objective Vital Signs & Weight: Vital Signs (12 hours) Temp Pulse Resp BP Pulse Ox 09/27/19 09:05 95 09/27/19 08:00 98.3 F 105 H 18 106/61 95 Weight Admit Weight 146 lb 11.2 oz Weight 146 lb 11.2 oz I&O: 09/26/19 09/27/19 09/28/19 06:59 06:59 06:59 Intake Total 1060 1230 1000 Balance 1060 1230 1000 Result Diagrams: 09/24/19 03:24 09/24/19 03:24 Radiology Reviewed by me: Yes (C-spine MRI - disc bulge C5-C7) Hospitalist ROS - Medication Medications: Active Medications Generic Name Dose Route Start Last Admin Trade Name Freq PRN Reason Stop Dose Admin Albuterol Sulfate 1 puff 09/24/19 09:55 09/24/19 11:33 Proventil Hfa INH 1 puff Q4H PRN Administration SOB Alprazolam 0.5 mg 09/23/19 13:10 09/27/19 03:10 Xanax PO 0.5 mg HSPRN PRN Administration Anxiety Cyclobenzaprine HCl 10 mg 09/25/19 18:48 09/27/19 04:36 Flexeril PO 10 mg Q8H PRN Administration Muscle Spasm Docusate Sodium 100 mg 09/24/19 13:52 09/26/19 20:37 Colace PO 100 mg BIDPRN PRN Administration CONSTIPATION Enoxaparin Sodium 40 mg 09/24/19 09:00 09/27/19 09:04 Lovenox SC 40 mg 0900 ODILON Administration Fentanyl 100 mcg 09/27/19 15:15 09/27/19 16:05 Duragesic TD 100 mcg Q3D ODILON Administration Fentanyl 50 mcg 09/27/19 15:15 09/27/19 16:05 Duragesic TD 50 mcg Q3D ODILON Administration Gabapentin 300 mg 09/23/19 21:00 09/27/19 09:03 Neurontin PO 300 mg BID ODILON Administration Hydromorphone HCl 4 mg 09/24/19 13:51 09/27/19 12:37 Dilaudid PO 4 mg Q4H PRN Administration FOR BTP Lidocaine 1 patch 09/25/19 13:00 09/27/19 12:37 Lidoderm 5% Patch TD 1 patch 1300 ODILON Administration Loratadine 10 mg 09/24/19 09:00 09/27/19 09:04 Claritin PO 10 mg DAILY ODILON Administration Miscellaneous Medication 1 each 09/26/19 01:00 09/27/19 03:00 Lidocaine Patch Removal TOP Not Given 0100 [facility]IL[facility] Morphine Sulfate 2 mg 09/23/19 14:32 09/27/19 03:02 Morphine SLOW IVP 2 mg Q4H PRN Administration Pain Pantoprazole Sodium 40 mg 09/24/19 09:00 09/27/19 09:03 Protonix PO 40 mg DAILY ODILON Administration Polyethylene Glycol 17 gm 09/26/19 09:00 09/27/19 09:04 Miralax PO 17 gm DAILY ODILON Administration Saccharomyces Boulardii 250 mg 09/26/19 09:00 09/27/19 09:03 Florastor PO 250 mg DAILY ODILON Administration Simethicone 160 mg 09/24/19 13:52 09/26/19 20:37 Mylicon Chewable PO 160 mg Q12H PRN Administration Gas Pain Sodium Chloride 10 ml 09/24/19 21:00 09/27/19 09:04 Flush - Normal Saline IVF 10 ml Q12HR ODILON Administration Sodium Chloride 10 ml 09/24/19 13:51 09/27/19 03:03 Flush - Normal Saline IVF 10 ml PRN PRN Administration Saline Flush - Exam General Appearance: NAD, awake alert Eye: PERRL, anicteric sclera ENT: normocephalic atraumatic, no oropharyngeal lesions Neck: supple, symmetric, no JVD, no thyromegaly Heart: RRR, no murmur, no gallops, no rubs, normal peripheral pulses Respiratory: CTAB, no wheezes, no rales, no ronchi, normal chest expansion Gastrointestinal: soft, non-tender, non-distended, normal bowel sounds Extremities: no cyanosis, no clubbing, no edema Skin: normal turgor, no lesions Neurological: cranial nerve grossly intact, no new deficit Musculoskeletal: normal tone, normal strength Musculoskeletal - other findings: TTP in L scapular/axillary region Psychiatric: normal affect, A&O x 3 Hosp A/P (1) Cancer associated pain Code(s): G89.3 - NEOPLASM RELATED PAIN (ACUTE) (CHRONIC) Status: Chronic Plan: Variable improvement, trial Solumedrol per Pain Service, multiple sedating meds currently, Flexeril (2) Bone metastases Code(s): C79.51 - SECONDARY MALIGNANT NEOPLASM OF BONE Status: Chronic Plan: Extensive metastatic process, chemotherapy continuing outpt (3) Pathological fracture of sacral vertebra Code(s): M84.48XA - PATHOLOGICAL FRACTURE, OTHER SITE, INIT ENCNTR FOR FRACTURE Status: Acute (4) Malignant neoplasm of female breast Code(s): C50.919 - MALIGNANT NEOPLASM OF UNSP SITE OF UNSPECIFIED FEMALE BREAST Status: Chronic - Plan plan discussed w/ family, psychiatric social worker supervisor, out of bed/ambulate, DVT proph w/SCDs Stable currently Titrate pain regimen to clinical response Add Lidocaine Patch 5% daily Flexeril 10mg TID PRN OOB/ambulate K-pad for sx relief Add Miralax daily Magnesium Citrate today Florastor daily Trial Solumedrol IV
[2019-09-27] MEDS ORDERED: Magnesium Citrate 300 ML BOT PO SCH (19:30)
[2019-09-28] MEDS: Lidocaine Patch Removal 1 EACH TOP SCH (00:20)
--- NOTE | 2019-09-28 02:03 | PRG ---
DATE OF SERVICE: 09/27/2019 SUBJECTIVE: The patient is reporting increasing pain this a.m. pain reported on the left lower cervical spine radiating down to scapular region towards the left axilla, rated at a 6/10, worse with activity when she lays on the opposite side as well as hyperextension of the neck, hyperextension of the cervical spine. She reports some mild pain now on the right side as well, going towards the shoulder and trapezius area. Pain is dull, achy, throbbing at times and sharp. She does report some on and off tingling in her left upper extremity. There is no new weakness in either upper extremity reported. She does also report a new onset of left knee pain, which started last night. She denies any falls or other injuries to the knee in the past. The pain is dull, achy, it is worse with flexion and extension. MEDICATION: The patient remains on a medication of fentanyl 150 mcg. Duragesic 72 hours with Dilaudid 4 mg tablets for breakthrough pain as needed. The patient had morphine 2 mg IV push overnight, one dose of her Dilaudid for breakthrough pain. She is taking Flexeril 10 mg t.i.d. now which seems to improve her pain. However, she is extremely drowsy with the medication on board. OBJECTIVE: VITAL SIGNS: Blood pressure is 106/61, heart rate is 105, temp is 98.3, she is 95% on room air. GENERAL: The patient is lying in bed, drowsy yet cooperative with exam. She follows all commands. She is alert and oriented x3. CARDIOVASCULAR: Peripheral vascular system is normal. Pulses with no peripheral vascular swelling, tenderness, or edema. SKIN: Warm and dry. RESPIRATORY: Respiratory effort is normal with no distress. There is no chest wall pain to palpation. SPINE: Cervical spine is normal to inspection, full range of motion, however, there is some discomfort with axial rotation, greater on the left versus right. Motor strength in the upper extremities is 5/5 and equal. Paraspinal spasms are absent bilaterally and trapezius tenderness present on the left, scapular tenderness on the left as well as on the right. Thoracic spine continues to have some diffuse tenderness in the upper thoracic region, greater on the left versus right to about T8, no pain with thoracic vertebral body palpation. Lumbar spine, no acute vertebral body tenderness with palpation, no SI pain with palpation. EXTREMITIES: Lower extremity strength is 5/5 and equal, gait is not assessed. She does have some tenderness in the medial and lateral joint lines of the left knee as well as the patella with palpation. There is no effusion appreciated. NEUROLOGIC: Assessment remains intact. She is alert and oriented x3. Clonus is negative. Reflexes are intact. Bilateral upper extremities with no involuntary tremors noted as well as lower extremities reflexes are intact. ASSESSMENT: 1. Chronic pain. 2. Breast cancer with metastatic disease. 3. Bone metastasis. PLAN: Discussed with Dr. Rm. He was present during the exam today and also reviewed current imaging and laboratory data. Continue current medication regimen including fentanyl, Duragesic, Dilaudid, muscle relaxants, and neuropathic medications. Due to continued pain on assessment today and failure of medication management to provide adequate control, we will add one dose of IV Solu-Medrol 80 mg x1 followed by an oral steroid taper. Plan was discussed with Oncology for the steroid use, they agree. Plan to image cervical spine including MRI of the cervical spine for further evaluation of scapular pain and left shoulder pain that may be possibly related to cervical radiculitis. X-ray of the left knee for new onset of knee pain. Further recommendations will come after imaging. Plan to continue to work on pain control for patient to be able to discharge home on oral medications. Job ID: [id number]
[2019-09-28] MEDS: HYDROmorphone 2 MG TAB PO PRN (05:45)
[2019-09-28 08:15] VITALS: BP 120/84; TEMP 97.6
[2019-09-28] MEDS ORDERED: predniSONE 20 MG TAB PO SCH (09:00)
[2019-09-28] MEDS: Saccharomyces boulardii 250 MG CAP PO SCH (09:03)
[2019-09-28] MEDS: Loratadine 10 MG TAB PO SCH (09:03)
[2019-09-28] MEDS: Polyethylene Glycol 3350 17 GM Packet PO SCH (09:03)
[2019-09-28] MEDS: Gabapentin 300 MG CAP PO SCH (09:03)
[2019-09-28] MEDS: Enoxaparin Sodium 40 MG/0.4 ML SYRINGE SC SCH (09:04)
[2019-09-28] MEDS: Cyclobenzaprine 10 MG TAB PO PRN (11:35)
[2019-09-28] MEDS: Lidocaine 5% Patch TD SCH (13:44)
--- NOTE | 2019-09-28 15:19 | DIS ---
DATE OF ADMISSION: 09/23/2019 DATE OF DISCHARGE: 09/28/2019 DISCHARGE DIAGNOSES: 1. Left upper back/scapular myalgia, improved. 2. Metastatic breast carcinoma with diffuse osseous involvement. 3. Pathological fracture of the sacral vertebrae. CONSULTATIONS: 1. Dr. Rm with Pain Management Service. 2. Medical Oncology Service. PERTINENT LABORATORY AND X-RAY FINDINGS: AST 56, ALT of 26, and alkaline phosphatase 450. BNP 45. Albumin 3.8. Serum beta-hCG negative on 09/23/2019. CBC showed a hemoglobin ranging between 10.[address] angiogram of the chest dated 09/23/2019, showed no evidence for pulmonary embolus. Bilateral pleural effusions. Hepatic and osseous metastatic process. CT of the lumbar spine dated 09/23/2019, showed bilateral S1 zone 3 sacral insufficiency type pathologic fractures. Thoracic spine MRI dated 09/24/2019, showed multifocal osseous metastatic process. Bilateral pleural effusions. Multifocal hepatic metastasis. Moderate right neural foraminal narrowing at T10 on T11. Cervical spine MRI dated 09/27/2019, showed posterior disk bulge most pronounced at C5 on C6 and C6 on C7. Diffuse osseous metastatic process. Four views of the left knee showed patchy sclerotic changes consistent with metastatic process. HOSPITAL COURSE: The patient was initially admitted after presenting with upper back and left axillary pain. The patient was evaluated with multiple imaging modalities including MRI and CT. The patient was noted with diffuse osseous metastatic process consistent with prior history of metastatic breast carcinoma. Exact etiology likely myalgia and neuropathy treated with various pain regimens to include narcotics as well as muscle relaxers with Flexeril and gabapentin. The patient was also treated with topical lidocaine patch with minimal relief of symptoms. The patient continued on Duragesic transdermal patch and hydromorphone oral therapy. The patient was slow to clinically improve with multiple modalities, prompting a Pain Management consult. The patient was given a trial of Solu-Medrol, transitioning to prednisone with overall improvement in symptomatology. Overall, the patient did remain clinically stable during the hospital course, tolerating regular oral intake. I have examined the patient at the time of discharge and discussed followup instructions. The patient verbalized understanding and in agreement and ready for discharge on 09/28/2019. DISCHARGE MEDICATIONS: 1. Prednisone 30 mg p.o. daily x3 days, followed by 20 mg p.o. daily x3 days, followed by 10 mg p.o. daily x3 days. 2. Nexium 40 mg p.o. daily. 3. Alpelisib 250 mg p.o. daily. 4. Alprazolam 0.5 mg p.o. at bedtime p.r.n. 5. Cetirizine 10 mg p.o. daily. 6. Duragesic patch 100 mcg transdermally q.72 hours. 7. Hydromorphone 4 mg p.o. q.4 hours p.r.n. pain. 8. Simethicone 80 mg p.o. daily p.r.n. 9. Sucralfate 1 g p.o. q.i.d. p.r.n. 10. Flexeril 10 mg p.o. t.i.d. p.r.n. 11. Neurontin 300 mg p.o. b.i.d. 12. Lidocaine 5% patch one patch transdermally daily. FOLLOWUP: The patient followup with Dr. Rm with Pain Management [facility] in 1 to 2 weeks. CONDITION ON DISCHARGE: Stable. ACTIVITY: Ad-ela. DIET: Regular. CODE STATUS: Full. DISPOSITION: Home on 09/28/2019. TIME SPENT: Total time preparing and coordinating discharge, 34 minutes. Job ID: [id number]
[2019-09-28] MEDS: Morphine 2 MG/ML SYRINGE SLOW IVP PRN (17:10)
[2019-10-01] MEDS ORDERED: predniSONE 20 MG TAB PO SCH (09:00)
[2019-10-04] MEDS ORDERED: predniSONE 5 MG TAB PO SCH (09:00)
== END 2019-09-28 17:50 | disposition home or self-care (01) | DRG 948 ==
LOC: ERS 07:40 → OBSVTOIN 14:41 → 2SW 14:41 → ONC 21:52
PROVIDERS: ADMIT Internal Medicine; ATTEND Internal Medicine
DX: G89.3 Neoplasm related pain (acute) (chronic) (principal); C79.51 Secondary malignant neoplasm of bone; C78.7 Secondary malignant neoplasm of liver and intrahepatic bile duct; C78.00 Secondary malignant neoplasm of unspecified lung; M84.58XA Pathological fracture in neoplastic disease, other specified site, initial encounter for fracture; J90 Pleural effusion, not elsewhere classified; D63.0 Anemia in neoplastic disease; G47.00 Insomnia, unspecified; J45.909 Unspecified asthma, uncomplicated; K59.00 Constipation, unspecified; D72.819 Decreased white blood cell count, unspecified; Z90.710 Acquired absence of both cervix and uterus; Z79.899 Other long term (current) drug therapy; C50.911 Malignant neoplasm of unspecified site of right female breast; Z17.0 Estrogen receptor positive status [ER+]
CPT/HCPCS: 36415; 71275; 72131; 72141; 72146; 80048; 80053; 83880; 84484; 84703; 85025; 93005; 96361; 96374; 96375; 96376; J0897; J1170; J1650; J2270; J2405; J2920; J7512; Q9967

== ENCOUNTER 2019-11-16 08:42 | Outpatient (CLI) | payer OTHER ==
[2019-11-16] MEDS ORDERED: Iopamidol 370 76% 100 ML VIAL ONE (09:11)
--- NOTE | 2019-11-16 11:43 | CT ---
CT OF THE ABDOMEN AND PELVIS WITH IV CONTRAST: INDICATION: History of metastatic breast cancer to the bones and liver; evaluate response to therapy. COMPARISON: CTA of the chest dated 09/23/2019, CT of the chest, abdomen, and pelvis dated August 25, 2019, and a CT of the abdomen and pelvis with contrast dated 05/08/2019. FINDINGS: There are enlarging moderate to prominent bilateral pleural effusions. There is a new nodular opacit y seen within the anterior aspect of the left upper lobe with some surrounding subsegmental volume lo ss measuring 2 cm on image 1 of series 2. There is incompletely evaluated on the current examination but may reflect rounded atelectasis. A similar-appearing area of suspected rounded atelectasis is s een within the right lung base. The hepatic hypodensities consistent with metastatic disease have intervally enlarged. The lesion wi thin the region of segment 8 of the right hepatic lobe on image 28 of series 2 has increased in size now measuring 3.6 cm where it previously measured 2.8 cm. Additional index lesion within segment 6 o f the right hepatic lobe on image 35 of series 2 measures 2.3 cm where previously it measured 1.2 cm. There is worsening retractile fibrosis involving the liver. Segmental perfusion defects involving portions of the right kidney, particularly on image 44 of serie s 2, is stable to the prior examination and may reflect scarring from prior infection or a prior segm ental infarct. No hydronephrosis is demonstrated. Adrenal glands, pancreas, and spleen appear withi n normal limits. There is mild free fluid in the abdomen. The colon is largely decompressed. A mild amount of residual stool is seen within portions of the co lynda. Appendix is not definitely seen. Small bowel is of normal caliber. There is mild anasarca. There is diffuse osseous metastatic disease without evidence of pathologic fracture. There is sacrop lasty change bilaterally. IMPRESSION: 1. Worsening moderate to prominent bilateral pleural effusions. 2. New, incompletely evaluated, 2 cm rounded nodular density in the anterior aspect of the left uppe r lobe. This may reflect a focus of round atelectasis. Dedicated CT of the thorax with IV contrast is recommended for further characterization. 3. Worsening hepatic metastatic disease with worsening retractile fibrotic change involving the live r contour. 4. Small areas of peripheral hypodensity involving the poles of the right kidney may reflect sequela e of prior infection, trauma or segmental infarcts. 5. Mild anasarca and ascites. 6. Diffuse osteoblastic metastatic disease without evidence of pathologic fracture. CODE T
== END 2019-11-16 08:43 | disposition home or self-care (01) ==
LOC: BICCT 08:42
PROVIDERS: ATTEND Internal Medicine Hematology & Oncology
DX: C22.9 Malignant neoplasm of liver, not specified as primary or secondary (principal); C50.111 Malignant neoplasm of central portion of right female breast; C78.2 Secondary malignant neoplasm of pleura; C79.51 Secondary malignant neoplasm of bone; J90 Pleural effusion, not elsewhere classified; R18.8 Other ascites; R60.1 Generalized edema; R91.8 Other nonspecific abnormal finding of lung field; N28.89 Other specified disorders of kidney and ureter
CPT/HCPCS: 74177; Q9967

== ENCOUNTER 2019-11-19 12:12 | Day surgery (SDC) | payer OTHER ==
[2019-11-18 16:10] VITALS: BMI 25.6
[~2019-11-19 12:12] MED LIST changes: +Dexamethasone 20 MG/5 ML VIAL ONE; -ISOVUE-370 76%-LOCM 1 ML ONE; +Lidocaine 1% PF 5 ML VIAL ONE; +Metoclopramide HCl 10 MG/2 ML VIAL ONE; +Ondansetron PF 4 MG/2 ML Vial ONE; +PHENYLEPHRINE-NS 100 MCG/ML 10 ML SYRINGE ONE; +PROPOFOL 200 MG/20 ML VIAL ONE
--- NOTE | 2019-11-19 13:17 | RAD ---
EXAM: Two views chest PROVIDED CLINICAL HISTORY: Preoperative evaluation COMPARISON: 09/06/[address] abdomen on 11/16/2019 FINDINGS: Moderately large bilateral pleural effusions are present which were noted on recent CT abdomen. Incre ase in perihilar interstitial densities are also present which could be related to interstitial edema. Cardiac silhouette is obscured. A right breast prosthesis is again noted with surgical clips o verlying the right axillary region. The osseous metastatic lesions seen on prior CTA of the chest on 10/22/2019 are less well appreciated on this exam, but a few scattered areas of sclerosis are noted . IMPRESSION: 1. Moderately large bilateral pleural effusions with associated atelectasis. 2. Increased perihilar interstitial densities which may be related to interstitial edema or possibly infectious process..
[2019-11-19] MEDS ORDERED: Lidocaine 1% w/Epinephrine 1:100K 20 ML VIAL ONE (13:28)
[2019-11-19] MEDS ORDERED: Propofol 500 MG/50 ML VIAL ONE (13:42)
[2019-11-19] MEDS ORDERED: Fentanyl 100 MCG/2 ML VIAL ONE ×2 (13:42→16:03)
[2019-11-19] MEDS ORDERED: PROPOFOL 0 ML ONE (13:42)
[2019-11-19] MEDS ORDERED: Midazolam HCl 2 mg/2 ml Vial ONE ×2 (13:42→13:48)
[2019-11-19] MEDS ORDERED: Famotidine/PF 20 mg/2ml Vial ONE (13:43)
[2019-11-19 13:49] LABS: Hemoglobin 11.2 g/dL (12.0-16.0); Mean Corpuscular HGB CONC 31.2 g/dL (32.0-36.0); Mean Corpuscular Hemoglobin 33.2 pg (27.0-31.0); Mean Platelet Volume 9.4 fL (7.4-10.4); Platelet Count 255 thou/uL (130-400); RBC Distribution Width 24.7 % (11.5-14.5); Red Blood Cell (RBC) Count 3.37 mill/uL (4.20-5.40); White Blood Cell (WBC) Count 6.6 thou/uL (4.8-10.8)
[2019-11-19] MEDS ORDERED: Iothalamate Meglumine 60% 30 ML VIAL FS ONE (14:30)
[2019-11-19] MEDS ORDERED: Promethazine HCl 25 MG/ML VIAL SLOW IVP PRN (15:12)
[2019-11-19] MEDS ORDERED: Promethazine HCl 25 MG/ML VIAL IM PRN (15:12)
[2019-11-19] MEDS ORDERED: Ondansetron HCl/PF 4 MG/2 ML Vial IVP PRN (15:12)
--- NOTE | 2019-11-19 16:58 | RAD ---
CHEST ONE VIEW: 11/19/19 HISTORY: Mediport placement. COMPARISON: Radiograph same day. FINDINGS: Port catheter is in place with tip more central than would be expected with projection of the medial mediastinum. Left thoracostomy drain is in place. The tip near the posterior left fourth rib. Large right and moderate left pleural effusions. Background pulmonary edema. IMPRESSION: Port catheter tip more central closer to the midline than would be expected. Recommend correlation wi th blood gases evaluation. This could be more central than expected due to the leftward mediastinal s hift from right large effusion and the decrease in size left effusion. POS: HOME
--- NOTE | 2019-11-20 15:08 | OP ---
DATE OF PROCEDURE: 11/19/2019 PREOPERATIVE DIAGNOSIS: Bilateral malignant effusions with need for IV access. PROCEDURES PERFORMED: Insertion of left PleurX catheter and placement of a left cephalic vein MediPort. ANESTHESIA: General with some local anesthetic. DESCRIPTION OF PROCEDURE: After prepping and draping the left lateral chest, a finder needle was used to aspirate pleural fluid, and the catheter and wire were then inserted. Counter incision was made. The catheter was brought through the tunnel, and then dilator and peel-away sheath were introduced, and the catheter was advanced, and 1500 mL of yellow fluid was removed. Dressings were applied. An ultrasound of the left jugular vein revealed the vein to be occluded. The patient was then prepped and draped. The cephalic vein was isolated, ligated distally, and the catheter was inserted through the cephalic vein into the right atrium positioning with ultrasound. Through a separate incision, catheter was brought through this tunnel and connected to the MediPort, which was flushed and the wounds were closed. FLUOROSCOPY: 0.9 minutes. Job ID: [id number]
== END 2019-11-19 19:35 | disposition home or self-care (01) ==
LOC: SDC 12:12
PROVIDERS: ATTEND Thoracic Surgery (Cardiothoracic Vascular Surgery)
PROC: 0WHB33Z Insertion of Infusion Device into Left Pleural Cavity, Percutaneous Approach (ICD-10-PCS; principal; 2019-11-19)
PROC: 02H633Z Insertion of Infusion Device into Right Atrium, Percutaneous Approach (ICD-10-PCS; principal; 2019-11-19)
DX: C50.919 Malignant neoplasm of unspecified site of unspecified female breast (principal); J91.0 Malignant pleural effusion; I82.C12 Acute embolism and thrombosis of left internal jugular vein; Z79.899 Other long term (current) drug therapy
CPT/HCPCS: 71045; 71046; 76000; 85027; C1729; C1788; J0690; J0897; J1100; J1642; J2001; J2250; J2405; J2704; J2765; J3010; S0028

== ENCOUNTER 2019-11-25 09:33 | Day surgery (SDC) | payer OTHER ==
[~2019-11-25 09:33] MED LIST changes: -Dexamethasone 20 MG/5 ML VIAL ONE; -Lidocaine 1% PF 5 ML VIAL ONE; -Metoclopramide HCl 10 MG/2 ML VIAL ONE; +Ondansetron 2MG/ML MDV 8 MG in Sodium Chloride 0.9% 50 ML IVPB SCH; -Ondansetron PF 4 MG/2 ML Vial ONE; -PHENYLEPHRINE-NS 100 MCG/ML 10 ML SYRINGE ONE; -PROPOFOL 200 MG/20 ML VIAL ONE; +SODIUM CHLORIDE 0.9% IVPB SCH; +[UNRECOGNIZED DRUG - OTHER] IVPB SCH
[2019-11-25] MEDS ORDERED: Sodium Chloride 0.9% 20 ML ONE (09:35)
[2019-11-25 10:33] VITALS: BP 128/69; TEMP 98.7
== END 2019-11-25 12:38 | disposition home or self-care (01) ==
LOC: ONC/OP 09:33
PROVIDERS: ATTEND Internal Medicine Hematology & Oncology
DX: Z51.11 Encounter for antineoplastic chemotherapy (principal); C50.111 Malignant neoplasm of central portion of right female breast; C78.2 Secondary malignant neoplasm of pleura; C79.51 Secondary malignant neoplasm of bone
CPT/HCPCS: 96372; 96375; 96409; J0897; J1642; J2405; J3490; J9179

== ENCOUNTER → 2019-11-26 | Day surgery (SDC) | payer OTHER ==
--- NOTE | 2019-11-26 12:52 | RAD ---
PORTABLE CHEST: COMPARISON: 11/19/2019 study. HISTORY: Pre-thoracentesis exam. FINDINGS: The pleural and parenchymal change in the left base is stable with a catheter in place. The size of the right-sided pleural effusion appears decreased. There is associated parenchymal change. Left-si ded MediPort catheter is unchanged in position. IMPRESSION: Decrease in the size of the right-sided pleural effusion. This effusion appears somewhat loculated. POS: RUFINO
[2019-11-26 15:11] LABS: RBC Count-Automated (BF) 4757 /cumm; WBC/Nucleated-Auto (BF) 696 uL
[2019-11-26 15:18] LABS: BF Color Yellow; Body Fluid Source Pleural Fluid; Clarity Cloudy/Turbid (Clear); Tube # 2
[2019-11-26 15:25] LABS: BF Segmented Neutrophils 22 %; Cell Count Non Hematic 69 %; Lymphocytes 9 %
[2019-11-26 15:51] LABS: Fluid, pH - Pleural Fld Greater than 7.50 (7.60 - 7.66)
[2019-11-26 16:09] LABS: Fluid, Protein 3.1 g/dL (Not Available)
--- NOTE | 2019-11-29 09:13 | OP ---
DATE OF PROCEDURE: 11/26/2019 DESCRIPTION OF PROCEDURE: The patient was placed in the sitting position. Right posterior hemithorax was cleansed with chlorhexidine. 10 mL of 1% lidocaine was used to anesthetize the skin and the pleura. An 8-Pashto catheter was inserted into the pleural space. 1 L of serous pleural fluid was easily evacuated from the right hemithorax. The fluid was sent for appropriate studies. She tolerated the procedure well. Job ID: [id number]
--- NOTE | 2019-11-30 20:12 | CON ---
DATE OF CONSULTATION: 11/26/2019 HISTORY OF PRESENT ILLNESS: Ms. Guallpa is an unfortunate 39-year-old female with recurrent breast cancer. She has extensive liver involvement, bilateral pleural effusions. I was consulted for thoracentesis. PAST MEDICAL HISTORY: Remarkable for: 1. Tunneled pleural drainage catheter on the left done recently. 2. History of breast cancer. 3. History of vascular access procedures in the past. Recently had a new MediPort placed. 4. Bone metastases. 5. Liver metastases. 6. History of asthma. 7. History of mastectomy on the right. FAMILY HISTORY: Negative for lung disease in early age. SOCIAL HISTORY: Nonsmoker and nondrinker. REVIEW OF SYSTEMS: Otherwise negative. Remarkable only for shortness of breath. PHYSICAL EXAMINATION: GENERAL: She is in no distress. VITAL SIGNS: Pulse is 100 and respiratory rate 18. HEENT: Pupils react. Sclerae are anicteric. NECK: Supple. LUNGS: Remarkable for absent breath sounds on the right. HEART: Regular rhythm. S1 and S2 are normal. ABDOMEN: Soft. EXTREMITIES: Without asymmetry or edema. NEUROLOGIC: Nonfocal. IMAGING STUDIES: Chest radiograph done showed a large right pleural effusion. A tunneled catheter visible on the left. IMPRESSION: Metastatic breast cancer. PLAN: Thoracentesis for symptomatic relief. Risks of bleeding, infection, and lung collapse were explained to the patient. This is a 70 min consult with greater than 50% of the time spent on the unit with coordination of care excluding procedures. Job ID: [id number] MTDD
[2019-12-02 13:37] LABS: Fungus Stain Final report (.)
== END ==
LOC: SDC 08:28
PROVIDERS: ATTEND Internal Medicine Critical Care Medicine
PROC: 0W9930Z Drainage of Right Pleural Cavity with Drainage Device, Percutaneous Approach (ICD-10-PCS; principal; 2019-11-26)
DX: C50.919 Malignant neoplasm of unspecified site of unspecified female breast (principal); C78.7 Secondary malignant neoplasm of liver and intrahepatic bile duct; C79.51 Secondary malignant neoplasm of bone; J91.0 Malignant pleural effusion; J45.909 Unspecified asthma, uncomplicated
CPT/HCPCS: 32554; 71045; 82150; 82945; 83615; 84157; 85060; 87070; 87102; 87116; 87205; 87206; 88112; 88305; 89051; J1642

== ENCOUNTER 2019-12-02 11:21 | Inpatient (IN) | payer OTHER ==
[2019-12-02] MEDS ORDERED: Sodium Chloride 0.65% Nasal 44 ML BOT EA NARE PRN (11:58)
[2019-12-02] MEDS ORDERED: Senokot S 8.6-50 MG TAB PO PRN (11:58)
[2019-12-02] MEDS ORDERED: HYDROcodone/Acetaminophen 5/325 mg Tablet PO PRN (11:58)
[2019-12-02] MEDS ORDERED: Ondansetron PF 4 MG/2 ML Vial IVP PRN (11:58)
[2019-12-02] MEDS ORDERED: Acetaminophen 325 MG TAB PO PRN (11:58)
[2019-12-02] MEDS ORDERED: Loratadine 10 MG TAB PO PRN (11:58)
[2019-12-02] MEDS ORDERED: Bisacodyl 5 MG TAB PO PRN (11:58)
[2019-12-02] MEDS ORDERED: hydrALAZINE 20 MG/ML VIAL SLOW IVP PRN (11:58)
[2019-12-02] MEDS ORDERED: Ondansetron ODT 4 MG TAB PO PRN (11:58)
[2019-12-02] MEDS ORDERED: Zolpidem Tartrate 5 MG TAB PO PRN (11:58)
[2019-12-02] MEDS ORDERED: Calcium Carbonate 500 MG ChewTAB PO PRN (11:58)
[2019-12-02] MEDS ORDERED: Loperamide HCl 2 MG CAP PO PRN (11:58)
--- NOTE | 2019-12-02 12:48 | HP ---
PRIMARY CARE PHYSICIAN: Dr. Duran. REASON FOR ADMISSION: Sent from Cancer Clinic as a direct admission for neutropenia. HISTORY OF PRESENT ILLNESS: A 39-year-old female, who has underlying history of stage III breast cancer, which is ER positive and HER-2 negative, which was diagnosed in 2007. The patient is following Oncology Clinic. She had last chemotherapy about a week ago. The patient was planned for chemotherapy today, but chemotherapy was canceled. The patient was feeling miserable today and her temperature was 103 last night and 102.5 this morning. Subsequently, after taking medication, her fever reduced to 100.3. The patient has now chronic respiratory failure and she is requiring 2 L nasal cannula oxygen. The patient reports that two days ago, she had almost 1 L of fluid removed with thoracentesis procedure at [facility]. The patient does have intermittent productive of cough with thick yellow sputum. She also feels dehydration. The patient reports that whenever she tried to swallow any kind of liquid or food, she feels sticking sensation in middle of her throat. She also feels her mouth is sore. She denies any oral lesion. She denies any oral thrush, but she feels burning sensation in her mouth underneath of tongue and she feels dry mucous membrane, and she requires liquid intake. She has left PleurX catheter in place. Today, she was evaluated at Cancer Clinic and found with neutropenia with WBC count 0.9 and hemoglobin was 9.3, and platelet was 156. The patient is transferred to our hospital for higher level of care for treatment for neutropenic fever. The patient was planned for holding chemotherapy until she is more stabilized. The patient reports that she denies any chest pain or palpitation, but she feels very weak, fatigue, and tired, and dizzy. REVIEW OF SYSTEM: CONSTITUTIONAL: Negative for weight loss or gain, ability to conduct usual activities. SKIN: Negative for rash, itching. EYES: Negative for double vision, pain. ENT/MOUTH: Negative for nose bleeding, neck stiffness, pain, tenderness. CARDIOVASCULAR: Negative for palpitations, dyspnea on exertion, orthopnea. RESPIRATORY: Negative for shortness of breath, wheezing, cough, hemoptysis, fever or night sweats. GASTROINTESTINAL: Negative for poor appetite, abdominal pain, heartburn, nausea, vomiting, constipation, or diarrhea. GENITOURINARY: Negative for urgency, frequency, dysuria, nocturia. MUSCULOSKELETAL: Negative for pain, swelling. NEUROLOGIC/PSYCHIATRIC: Negative for anxiety, depression. ALLERGY/IMMUNOLOGIC: Negative for skin rash, bleeding tendency. All review of systems reviewed with her and negative except as mentioned in HPI. PAST MEDICAL HISTORY: Asthma and breast cancer since 2007, chronic respiratory failure, pleural effusion required thoracentesis. PAST SURGICAL HISTORY: Right mastectomy in 2009. SOCIAL HISTORY: The patient is . She has one child. She lives with her son. She denies any smoking. She denies any alcohol abuse. She denies any other illicit drug abuse. FAMILY HISTORY: No strong family history of premature coronary artery disease, stroke, or cancer. ALLERGIES: NO KNOWN DRUG ALLERGY. CURRENT HOME MEDICATION: 1. Dilaudid p.r.n. basis. 2. Albuterol inhaler as needed basis. 3. Xanax 0.5 mg p.o. at bedtime. 4. Duragesic patch. 5. Gabapentin. 6. Sucralfate. 7. Protonix. PAST PSYCHIATRIC HISTORY: Reviewed and negative. PHYSICAL EXAMINATION: VITAL SIGNS: Currently, temperature 98.7, pulse 110, respiratory rate 18, saturation 97% on 2 L. GENERAL: The patient is currently alert, awake, chronically ill, in no acute distress. HEENT: Head, normocephalic. Dry mucous membrane. Icterus noted. No nystagmus. NECK: Supple. No JVD. No meningeal signs of irritation. LUNGS: Air entry reduced at bases. CHEST WALL: Left PleurX catheter in place. CARDIAC: S1, S2. Regular. Tachycardia. ABDOMEN: Soft. Bowel sounds present. Nontender, nondistended. No organomegaly. No mass. EXTREMITIES: No edema. NEUROLOGIC: Nonfocal examination. SIGNIFICANT LABORATORY DATA: WBC count 0.9, hemoglobin 9.3, MCV 97.1, platelet count 156. Old hospital course completely reviewed in the system. ASSESSMENT AND PLAN: Impression: 1. Neutropenic fever. 2. Dysphagia. 3. Sinus tachycardia. 4. Metastatic breast cancer. 5. Volume depletion. 6. Dehydration. PLAN: Admission to Oncology for neutropenic precaution. Empiric cefepime 2 g q.12 hourly. Diflucan 200 mg IV daily for presumed Helen esophagitis. IV fluid with dextrose with NS at 100 mL/h. Oncology consultation. Pepcid 20 mg IV b.i.d. We will repeat labs including CBC, CMP, lactic acid, procalcitonin. We will do repeat chest x-ray. We will also do blood culture, urine culture. Electrolyte replacement as needed. Deep venous thrombosis prophylaxis, Lovenox 40 mg subcu daily. Gastrointestinal prophylaxis, Pepcid 20 mg IV b.i.d. CODE STATUS: The patient is full code. DISPOSITION PLAN: Based on clinical course. We are expecting the patient's stay in hospital more than 2 midnights. Plan of care discussed with the patient in detail. Job ID: [id number]
[2019-12-02] MEDS ORDERED: Lidocaine-Prilocaine 2.5% Cream 5 GM TUBE TOP PRN (13:06)
[2019-12-02 14:44] LABS: Hemoglobin 8.5 g/dL (12.0-16.0); Mean Corpuscular HGB CONC 31.2 g/dL (32.0-36.0); Mean Corpuscular Hemoglobin 31.6 pg (27.0-31.0); Mean Platelet Volume 10.4 fL (7.4-10.4); Platelet Count 120 thou/uL (130-400); RBC Distribution Width 23.2 % (11.5-14.5); Red Blood Cell (RBC) Count 2.69 mill/uL (4.20-5.40); White Blood Cell (WBC) Count 0.6 thou/uL (4.8-10.8)
[2019-12-02] MEDS: Cefepime 2 GM in Sodium Chloride 0.9% 100 ML IVPB SCH ×2 (14:46→23:51)
[2019-12-02] MEDS: D5 0.9% NS w/ 20 mEq KCl 1,000 ML IV SCH ×2 (14:46→21:07)
[2019-12-02 14:55] LABS: Lactic Acid 1.4 mmol/L (0.5-2.2)
[2019-12-02 14:56] LABS: ALT (SGPT) 54 U/L (8-55); AST (SGOT) 323 U/L (5-34); Albumin 2.4 g/dL (3.5-5.0); Alkaline Phosphatase 893 U/L (40-110); Anion Gap 14 mmol/L (10-20); BUN (Urea Nitrogen) 5 mg/dL (7.0-18.7); Bilirubin, Total 5.9 mg/dL (0.2-1.2); Calc. Creatinine Clearance 160 mL/min (70-130); Calcium 7.5 mg/dL (7.8-10.44); Carbon Dioxide 31 mmol/L (22-29); Chloride 97 mmol/L (98-107); Estimated GFR-MDRD Greater than 90; Globulin 3.4 g/dL (2.4-3.5); Glucose 121 mg/dL (70-105); Protein, Total 5.8 g/dL (6.0-8.3); Sodium 139 mmol/L (136-145)
[2019-12-02 15:21] LABS: Anisocytosis MODERATE=16-30 cells (100X) (0-5/hpf); Burr Cells SLIGHT = 2-5 cells (100X) (0-1/hpf); Hypochromia SLIGHT = 6-15 cells (100X) (0-5/hpf); Lymphocytes 83 % (21-51); MDiff Complete? YES; Macrocytosis SLIGHT = 6-15 cells (100X) (0-5/hpf); Monocytes 3 % (0-10); Neutrophil 3 % (42-75); Nucleated RBC 2 % (0); Platelet Morphology Comment Appears Decreased; Polychromasia MODERATE = 3-4 cells (100X) (0-2/hpf); Reactive Lymphocytes 10 % (0-10); Schistocytes SLIGHT = 2-5 cells (100X) (0-1/hpf); Target Cells SLIGHT = 2-5 cells (100X) (0-1/hpf); Tear Drops SLIGHT = 2-5 cells (100X) (0-1/hpf)
[2019-12-02] MEDS: Fluconazole In NaCl,Iso-Osm 200 MG in Premix Bag 1 BAG IVPB SCH (15:30)
--- NOTE | 2019-12-02 15:35 | RAD ---
PORTABLE CHEST: HISTORY: Tachycardia and dyspnea. COMPARISON: 11/19/2019. FINDINGS: The large right breast prosthesis obscures the right chest. There continues to be evidence of a subp ulmonic effusion on the right. This has been described on prior films and the recent CT 11/16/2019. Small left effusion with left basilar infiltrate and/or atelectasis appears stable. The MediPort cat heter is unchanged. IMPRESSION: No significant change from 11/26/2019. Bilateral effusions and left basilar infiltrate and/or atelecta sis again noted. POS: AGW
[2019-12-02] MEDS ORDERED: HYDROmorphone 2 MG TAB PO PRN (15:55)
[2019-12-02] MEDS ORDERED: [UNRECOGNIZED DRUG - OTHER] MM PRN (15:55)
[2019-12-02] MEDS ORDERED: guaiFENesin ER 600 MG TAB PO PRN (15:55)
[2019-12-02] MEDS ORDERED: Cyclobenzaprine 10 MG TAB PO PRN (15:55)
[2019-12-02] MEDS ORDERED: ALPRAZolam 0.5 MG TAB PO PRN (15:55)
[2019-12-02 16:08] LABS: Bilirubin 1+ (Negative); Blood, Urine Negative (Negative); Clarity Clear (Clear); Glucose, Urine (Dipstick) Normal (Negative); Leukocyte Negative Leu/uL (Negative); Nitrite Negative (Negative); Protein, Urine (Dipstick) Negative (Neg-Trace); Squamous Epithelial None Seen HPF (0-3); WBC/HPF 0-3 HPF (0-3)
[2019-12-02 16:09] LABS: Bacteria/HPF Rare-Few HPF (None Seen)
[2019-12-02] MEDS ORDERED: Albuterol Sulfate 1.25 MG/3 ML NEB NEB PRN (16:20)
[2019-12-02] MEDS: Nystatin 500,000 UNITS/5 ML UDCUP PO SCH ×2 (17:41→23:54)
[2019-12-02] MEDS ORDERED: Potassium Chloride 20 MEQ/100 ML PREMIX BAG IVPB SCH (18:30)
[2019-12-02] MEDS ORDERED: Sodium Chloride 0.9% 500 ML IVPB SCH (18:30)
[2019-12-02] MEDS ORDERED: Milk Of Magnesia 30 ML UDCUP PO PRN (18:33)
[2019-12-02] MEDS ORDERED: Sodium Chloride 0.9% 500 ML IV SCH (18:45)
[2019-12-02] MEDS: Morphine 4 MG/ML VIAL SLOW IVP PRN ×2 (18:47→23:51)
[2019-12-02] MEDS: Aluminum & Magnesium Hydroxide 60 ML, Lidocaine 2% Viscous Solution 30 ML, diphenhydrAM... SSW PRN (18:51)
[2019-12-02] MEDS: Acetaminophen 650 MG/20.3 ML UDCUP PO PRN (20:01)
[2019-12-02] MEDS: Famotidine 20 MG TAB PO SCH (20:28)
[2019-12-02] MEDS: Gabapentin 300 MG CAP PO SCH (20:28)
[2019-12-02] MEDS: Famotidine/PF 20 mg/2ml Vial SLOW IVP SCH (20:28)
--- NOTE | 2019-12-02 20:56 | PDOC.EVN ---
Event Note - Event Note Event Note: Dr. Matt has advised to hold lovenox given history of post nasal pharyngeal bleeding.
[2019-12-03] MEDS: Morphine 4 MG/ML VIAL SLOW IVP PRN ×5 (04:33→22:44)
[2019-12-03] MEDS: D5 0.9% NS w/ 20 mEq KCl 1,000 ML IV SCH (04:33)
[2019-12-03 05:13] LABS: ALT (SGPT) 49 U/L (8-55); AST (SGOT) 260 U/L (5-34); Albumin 2.4 g/dL (3.5-5.0); Alkaline Phosphatase 831 U/L (40-110); Anion Gap 11 mmol/L (10-20); BUN (Urea Nitrogen) 4 mg/dL (7.0-18.7); Bilirubin, Total 5.7 mg/dL (0.2-1.2); Calc. Creatinine Clearance 137 mL/min (70-130); Calcium 7.3 mg/dL (7.8-10.44); Carbon Dioxide 30 mmol/L (22-29); Chloride 102 mmol/L (98-107); Estimated GFR-MDRD Greater than 90; Globulin 3.6 g/dL (2.4-3.5); Glucose 141 mg/dL (70-105); Magnesium 2.4 mg/dL (1.6-2.6); Potassium 3.3 mmol/L (3.5-5.1); Sodium 140 mmol/L (136-145)
[2019-12-03] MEDS: Nystatin 500,000 UNITS/5 ML UDCUP PO SCH ×4 (05:20→17:37)
[2019-12-03 05:30] LABS: White Blood Cell (WBC) Count 0.7 thou/uL (4.8-10.8)
[2019-12-03 05:42] LABS: Hemoglobin 8.4 g/dL (12.0-16.0); Mean Corpuscular HGB CONC 32.2 g/dL (32.0-36.0); Mean Corpuscular Hemoglobin 32.7 pg (27.0-31.0); RBC Distribution Width 23.5 % (11.5-14.5); Red Blood Cell (RBC) Count 2.56 mill/uL (4.20-5.40)
[2019-12-03] MEDS ORDERED: Enoxaparin Sodium 40 MG/0.4 ML SYRINGE SC SCH (09:00)
[2019-12-03 09:02] LABS: Mean Platelet Volume 10.9 fL (7.4-10.4); Platelet Count 102 thou/uL (130-400)
[2019-12-03 09:07] LABS: Lymphocytes 80 % (21-51); MDiff Complete? YES; Monocytes 16 % (0-10); Neutrophil 4 % (42-75); Platelet Morphology Comment Appears Decreased; Polychromasia MODERATE = 3-4 cells (100X) (0-2/hpf)
[2019-12-03] MEDS: Ascorbic Acid 500 mg Chewable Tablet PO SCH ×2 (09:16→10:03)
[2019-12-03] MEDS: Bisacodyl 10 MG SUPP PR PRN (09:16)
[2019-12-03] MEDS: Saccharomyces boulardii 250 MG CAP PO SCH ×2 (09:16→09:40)
[2019-12-03] MEDS: Famotidine 20 MG TAB PO SCH ×3 (09:16→21:24)
[2019-12-03] MEDS: Gabapentin 300 MG CAP PO SCH ×4 (09:17→21:24)
[2019-12-03] MEDS: Vancomycin 1 GM in Premix Bag 1 BAG IVPB SCH ×2 (09:17→21:24)
[2019-12-03] MEDS: Acetaminophen 650 MG/20.3 ML UDCUP PO PRN ×2 (09:18→19:22)
--- NOTE | 2019-12-03 09:24 | ULT ---
EXAM: US Gallbladder RUQ CLINICAL HISTORY: Elevated bilirubin. Liver metastases.. COMPARISON: 09/14/2017 FINDINGS: Pancreas: Obscured by bowel gas Liver:Multiple masslike lesions with heterogeneous echotexture occupying the majority the hepatic par enchyma. Findings are compatible with metastases. Right hepatic lobe measures approximately 20 cm. Gallbladder: Contracted. No sonographic evidence of cholelithiasis or pericholecystic fluid. Castellano's sign:Negative Portal Vein: Patent. Appropriate directional flow Bile ducts: Common bile duct diameter 0.42 cm Right kidney: No hydronephrosis. Right kidney measures 10.9 x 6.6 x 4.0 cm in length. Incidentals: Trace ascites. Right-sided pleural effusion. IMPRESSION: 1. Multiple hepatic masses, compatible with known metastases. Line 2. Trace ascites. Right-sided pleural effusion.
[2019-12-03] MEDS: fentaNYL 50 mcg/hour Patch TD SCH (09:40)
[2019-12-03] MEDS: Famotidine/PF 20 mg/2ml Vial SLOW IVP SCH ×2 (12:18→21:23)
--- NOTE | 2019-12-03 12:23 | PDOC.PALCO ---
Palliative Care Consult - Consult Details Requesting Physician: Dr Duran Reason for Consult: goals of care, advance directives assistance, complex decision-making Family Members Present: Patient brother - Pertinent HPI 39 year old female who has Stage III breast cancer initially diagnosed in 2007. Continues to be treated at the Cancer Clinic with Dr Duran. 12/02/2019 presented for chemo but was held secondary to fever and respiratory failure. Recent removal of 1 liter of fluid via thoracentesis. Continued decline, decrease in intake, neutropenia. Admitted for medical management of neutropenic fever. - Pertinent PMH Metastatic breast cancer, respiratory failure - Social History Smoking Status: Never smoker Smoking: no tobacco exposure Alcohol Use: none Drug Use History: none Living Situation: other (Has a 7 year old son, states her brother assists in caring for her. ) - Allergies Allergies/Adverse Reactions: Allergies Allergy/AdvReac Type Severity Reaction Status Date / Time No Known Allergies Allergy Verified 11/18/19 16:10 - Subjective Pronounced weakness. Continues to complain of pain. - ROS Constitutional: alert, weakness Respiratory: other (Cough, shortness of breath with conversation) Gastrointestinal: other (negative for nausea, vomiting) Musculoskeletal: other (pain) - Objective Vital Signs: Vital Signs - Most Recent Temp Pulse Resp BP Pulse Ox 99.4 F 62 18 112/56 L 98 12/03/19 12:00 12/03/19 12:00 12/03/19 12:00 12/03/19 12:00 12/03/19 12:00 Palliative Performance Scale: 40 - Physical Exam Constitutional: ill appearing HEENT: EOMI, moist MMs Respiratory: no wheezing, labored respirations Deviation from normal: labored with conversation Gastrointestinal: continent Genitourinary: continent Neurology: moves all 4 limbs Skin: no lesions, no rash Psychiatric: A&O x 3, normal affect, depressed - Problem List (1) Palliative care encounter Code(s): Z51.5 - ENCOUNTER FOR PALLIATIVE CARE Current Visit: Yes Status: Acute (2) Acute respiratory failure Code(s): J96.00 - ACUTE RESPIRATORY FAILURE, UNSP W HYPOXIA OR HYPERCAPNIA Current Visit: No Status: Acute (3) Breast cancer Current Visit: No Status: Acute (4) Liver metastases Code(s): C78.7 - SECONDARY MALIG NEOPLASM OF LIVER AND INTRAHEPATIC BILE DUCT Current Visit: No Status: Acute (5) Cancer associated pain Code(s): G89.3 - NEOPLASM RELATED PAIN (ACUTE) (CHRONIC) Current Visit: No Status: Chronic (6) Neutropenia Code(s): D70.9 - NEUTROPENIA, UNSPECIFIED Current Visit: No Status: Chronic - Plan/Recommendations Plan: Introduced Palliative Care to patient, brother is at bedside. She states she wishes to continue with aggressive measures. States her son is most important to her, he is 7. Asked if Palliative Care could introduced Hospice so that if there is ever a time she is desiring to transition to comfort measures and symptom management verses aggressive treatment she is informed. She was agreeable, however he brother stated "she is not ready right now". Spiritual care consult placed. Agreeable to complete MPOA, Palliative Care registrar will follow up . Communicated with Dr Duarn and Dr Estrada [50] minutes spent on this encounter with >50% of the time in counseling and coordination of care. Thank you for this very appropriate consult.
[2019-12-03] MEDS ORDERED: Hydrocortisone Acetate 25 MG Suppository PR PRN (13:53)
[2019-12-03] MEDS: Aluminum & Magnesium Hydroxide 60 ML, Lidocaine 2% Viscous Solution 30 ML, diphenhydrAM... SSW PRN ×2 (14:18→18:25)
[2019-12-03] MEDS: Cefepime 2 GM in Sodium Chloride 0.9% 100 ML IVPB SCH (14:19)
[2019-12-03] MEDS ORDERED: Mag-Al 1200 mg/1200 mg/30 ML UDCUP PO PRN (14:58)
[2019-12-03] MEDS: Fluconazole In NaCl,Iso-Osm 200 MG in Premix Bag 1 BAG IVPB SCH (15:07)
--- NOTE | 2019-12-03 15:15 | CON ---
DATE OF CONSULTATION: 12/03/2019 HISTORY OF PRESENT ILLNESS: Ms. Guallpa is a 39-year-old female with a longstanding history of metastatic estrogen receptor-positive ductal carcinoma of the breast. She has known liver and pulmonary metastases and has failed multiple lines of chemotherapy and other treatments over the last several years. Most recently, she has progressed in the liver with increased bloating and abdominal pain as well as increasing shortness of breath. She had a malignant pleural effusion and a PleurX catheter was placed recently. She was initiated on Halaven chemotherapy one week prior to the admission and unfortunately her liver function tests have gone up significantly over the last week. She presented for dose two with pancytopenia as well as an elevated total bilirubin. She complains of poor appetite and weight loss. She is not drinking any water. She has sores in her mouth and pain when swallowing. She has increased abdominal bloating as well as increasing shortness of breath. She has not noticed that her eyes are yellow, although her total bilirubin was over 5 on the day of admission. She is not feeling much better since being hospitalized. She does report that she had a fever at home prior to admission, up to 102, although she has been afebrile on admission here. PAST MEDICAL HISTORY: 1. Metastatic breast cancer, recently having failed multiple lines of chemotherapy and her last dose of chemotherapy was November 25 with Halaven. 2. Chronic pain secondary to metastatic disease to bone. ALLERGIES: NO KNOWN DRUG ALLERGIES. MEDICATIONS: 1. Tylenol 650 mg p.o. q.4 hours p.r.n. 2. [place] 5/325 one p.o. q.4 hours p.r.n. 3. Albuterol nebulizers. 4. Xanax 0.5 mg p.o. at bedtime p.r.n. 5. Vitamin C 1000 mg p.o. daily. 6. Dulcolax 10 mg p.o. daily. 7. Dulcolax 10 mg per rectum daily p.r.n. 8. Tums p.r.n. 9. Cefepime 2 g IV q.8 hours. 10. Vitamin D 5000 units p.o. q.2 days. 11. Flexeril 10 mg p.o. q.8 hours p.r.n. 12. Pepcid 20 mg IV q.12 hours. 13. Pepcid 20 mg p.o. b.i.d. 14. Duragesic 100 mcg transdermal q.3 days. 15. Gabapentin 600 mg p.o. t.i.d. 16. Mucinex 1200 mg p.o. q.2 hours p.r.n. 17. Robitussin p.r.n. 18. Hydralazine p.r.n. 19. EMLA cream p.r.n. 20. Imodium 2 mg p.o. q.4 hours p.r.n. 21. Claritin 10 mg p.o. daily p.r.n. 22. Milk of magnesia p.r.n. 23. Morphine 4 mg IV q.4 hours p.r.n. 24. Nystatin 500,000 units p.o. q.6 hours. 25. Zofran 4 mg p.o. q.6 hours. 26. IV fluids. 27. Florastor 250 mg p.o. daily. 28. Senokot two tabs p.o. b.i.d. p.r.n. 29. Granix 480 mcg subcu daily. 30. Vancomycin just added this morning, 1 g IV q.12 hours. 31. Ambien 5 mg p.o. at bedtime p.r.n. SOCIAL HISTORY: She has a son and is a single parent. Her brother is her main source of support and is quite supportive. She denies tobacco or alcohol use. FAMILY HISTORY: Noncontributory. REVIEW OF SYSTEMS: Otherwise 10-point review of systems . PHYSICAL EXAMINATION: VITAL SIGNS: Temperature 99.3, pulse 132, respirations 16 to 18, O2 saturation 96% on room air, blood pressure 118/59. GENERAL: She is quite chronically-ill appearing, in no acute distress. HEENT: Extraocular muscles are intact. Pupils are reactive to light. Her sclerae are anicteric. Her mouth is dry. NECK: Supple without lymphadenopathy. LUNGS: Decreased breath sounds in the bases bilaterally. ABDOMEN: Hypoactive bowel sounds. Soft. Tender in the midepigastric and right upper quadrant, her liver edge is palpable. EXTREMITIES: No edema. LABORATORY DATA: White blood cell count 0.7, hemoglobin 8.4, platelets were 420,000 yesterday. They are pending today. Sodium 140, potassium 3.3, chloride 102, CO2 is 30, BUN 4, creatinine 0.5, glucose 141, calcium 7.3, total bilirubin 5.7, AST 260, ALT 49, alkaline phosphatase 831, albumin 2.4. Abdominal ultrasound is pending. CT of the abdomen and pelvis prior to this admission shows progressing disease in the liver as well as bilateral pleural effusions. ASSESSMENT: Ms. Guallpa is a 39-year-old female with: 1. Metastatic breast cancer, progressing on recent chemotherapy. 2. Pancytopenia secondary to Halaven. 3. Abdominal bloating and abdominal pain secondary to metastatic disease. 4. Shortness of breath with malignant pleural effusion secondary to metastatic disease. 5. Hyperbilirubinemia and elevated liver function tests secondary to metastatic disease. PLAN: 1. She is already on cefepime and we have added vancomycin, I would continue these since she is clearly neutropenic and had a fever at home. 2. GI has been consulted, abdominal ultrasound has been ordered. We need to see if she has an obstructed common bile duct and if instrumentation would be helpful or if this is just a fulminant metastatic disease in the liver. 3. Blood transfusions p.r.n., although I do not think she needs this now. 4. Her pain is adequately controlled. 5. Consider adding TPN depending on how the next day or two go. 6. I have discussed her prognosis with her and her brother. They understand that her prognosis is poor. We have discussed hospice in the past, though she has been adamantly against this. I would recommend a palliative care consult. Job ID: [id number]
[2019-12-03] MEDS: D5W-AA 4.25% with LYTES 1,000 ML BAG IV SCH (16:43)
--- NOTE | 2019-12-03 17:53 | PDOC.HOSPP ---
- Subjective Encounter Date: 12/03/19 Encounter Time: 14:30 Subjective: pt up in bed complains of pain on swallowing. she also is constipated. - Objective Vital Signs & Weight: Vital Signs (12 hours) Temp Pulse Resp BP Pulse Ox 12/03/19 17:00 98.6 F 122 H 18 114/59 L 95 12/03/19 12:00 99.4 F 62 18 112/56 L 98 12/03/19 08:40 99.3 F 132 H 18 118/59 L 96 12/03/19 08:00 95 Weight Admit Weight 143 lb 6.4 oz Weight 143 lb 6.4 oz I&O: 12/02/19 12/03/19 12/04/19 06:59 06:59 06:59 Intake Total 2100 90 Output Total 200 Balance 2100 -110 Result Diagrams: 12/03/19 04:42 12/03/19 04:42 Hospitalist ROS - Review of Systems ENT: reports: mouth pain, mouth swelling Respiratory: denies: cough, dry, shortness of breath, hemoptysis, SOB with excertion, pleuritic pain, sputum, wheezing, other Cardiovascular: denies: chest pain, palpitations, orthopnea, paroxysmal noc. dyspnea, edema, light headedness, other Gastrointestinal: denies: nausea, vomiting, abdominal pain, diarrhea, constipation, melena, hematochezia, other - Medication Medications: Active Medications Generic Name Dose Route Start Last Admin Trade Name Freq PRN Reason Stop Dose Admin Acetaminophen 650 mg 12/02/19 19:15 12/02/19 20:01 Tylenol Elixir PO 650 mg Q4H PRN Administration Headache/Fever or Pain (1-3) Amino Acids/Electrolytes/Dextrose 1,000 ml 12/03/19 14:00 12/03/19 16:43 Clinimix E 4.25/5 IV 1,000 ml INF [facility]ILON Administration Ascorbic Acid 1,000 mg 12/03/19 09:00 12/03/19 10:03 Vitamin C PO Not Given DAILY [facility] Bisacodyl 10 mg 12/02/19 18:33 12/03/19 09:16 Dulcolax [place] 10 mg DAILYPRN PRN Administration Constipation Calcium Carbonate 1,000 mg 12/02/19 11:58 12/02/19 18:50 Tums PO 1,000 mg Q4H PRN Administration Heartburn or Indigestion Cholecalciferol 5,000 units 12/02/19 16:00 12/02/19 17:41 Vitamin D3 PO Not Given Q2DAYS [facility] Famotidine 20 mg 12/02/19 21:00 12/03/19 12:18 Pepcid SLOW IVP 20 mg Q12HR [facility]ON Administration Famotidine 20 mg 12/02/19 21:00 12/03/19 09:42 Pepcid PO Not Given BID [facility] Fentanyl 100 mcg 12/03/19 09:00 12/03/19 09:40 Duragesic TD 100 mcg Q3D ODILON Administration Gabapentin 600 mg 12/02/19 21:00 12/03/19 15:10 Neurontin PO Not Given TID [facility] Cefepime HCl 2 gm/ Sodium 100 mls @ 200 mls/hr 12/02/19 13:00 12/03/19 14:19 Chloride IVPB 100 mls 0100,1300 [facility] Administration Fluconazole/Sodium Chloride 100 mls @ 100 mls/hr 12/02/19 14:00 12/03/19 15: 07 200 mg/ Device IVPB 100 mls 1400 ODILON Administration Vancomycin HCl 1 gm/ Device 200 mls @ 200 mls/hr 12/03/19 09:00 12/03/19 09: 17 IVPB 200 mls Q12HR [facility] Administration Magnesium Hydroxide 30 ml 12/02/19 18:33 12/02/19 18:51 Milk Of Magnesium PO 30 ml DAILYPRN PRN Administration Constipation Morphine Sulfate 4 mg 12/02/19 18:29 12/03/19 14:39 Morphine SLOW IVP 4 mg Q4H PRN Administration Pain Nystatin 500,000 units 12/02/19 18:00 12/03/19 17:37 Mycostatin PO Not Given Q6HR [facility] Saccharomyces Boulardii 250 mg 12/03/19 09:00 12/03/19 09:40 Florastor PO Not Given DAILY [facility] Sodium Chloride 10 ml 12/02/19 09:00 12/03/19 09:17 Flush - Normal Saline IVF 10 ml Q12HR [facility] Administration Tbo-Filgrastim 480 mcg 12/03/19 16:00 12/03/19 16:43 Granix SC 480 mcg 1600 [facility]ILON Administration - Exam ENT - other findings: ulcer noted on her palate Neck: negative: supple, symmetric, no JVD, no thyromegaly, no lymphadenopathy, no carotid bruit, JVD Heart: negative: RRR, no murmur, no gallops, no rubs, normal peripheral pulses, irregular, diminshed peripheral pulses, murmur present, II/IV, III/IV Respiratory - other findings: decrease breath sounds to lower lung, left pleurex cath Gastrointestinal: negative: soft, non-tender, non-distended, normal bowel sounds , no palpable masses, no hepatomegaly, no splenomegaly, no bruit, no guarding, no rigidity, tender to palpation, distended, diminished bowl sounds, voluntary guarding Extremities: 1+ LE edema Hosp A/P (1) Neutropenic fever Code(s): D70.9 - NEUTROPENIA, UNSPECIFIED; R50.81 - FEVER PRESENTING WITH CONDITIONS CLASSIFIED ELSEWHERE Status: Acute (2) Breast cancer Status: Acute (3) Stage IV carcinoma of breast Code(s): C50.919 - MALIGNANT NEOPLASM OF UNSP SITE OF UNSPECIFIED FEMALE BREAST Status: Chronic (4) Elevated LFTs Code(s): R79.89 - OTHER SPECIFIED ABNORMAL FINDINGS OF BLOOD CHEMISTRY Status : Acute (5) Malnutrition Code(s): E46 - UNSPECIFIED PROTEIN-CALORIE MALNUTRITION Status: Acute (6) Anemia Code(s): D64.9 - ANEMIA, UNSPECIFIED Status: Chronic - Plan pt unable to eat since she has pain on swallowing. she has an ulcer on her hard palate. will give her oral meds with lidocaine for pain relief. will start her on ppn. continue iv abx for now. electrolytes replaced.
[2019-12-03] MEDS: Aluminum & Magnesium Hydroxide 60 ML, Lidocaine 2% Viscous Solution 30 ML, diphenhydrAM... SSW SCH (18:25)
[2019-12-03] MEDS: Preparation H Ointment 57 gram tube TOP PRN (21:37)
[2019-12-03] MEDS: Lorazepam 2 MG/ML VIAL SLOW IVP SCH ×2 (22:36→23:50)
[2019-12-04] MEDS: Aluminum & Magnesium Hydroxide 60 ML, Lidocaine 2% Viscous Solution 30 ML, diphenhydrAM... SSW SCH ×5 (00:06→23:20)
[2019-12-04] MEDS: Cefepime 2 GM in Sodium Chloride 0.9% 100 ML IVPB SCH ×2 (00:07→13:28)
--- NOTE | 2019-12-04 02:35 | CON ---
DATE OF CONSULTATION: 12/03/2019 REASON FOR CONSULT: Dysphagia. HISTORY OF PRESENT ILLNESS: Mrs. Guallpa is a 39-year-old female, with breast cancer, I had seen her in the past in last January for anemia and suspected upper GI bleeding. She was found to have small erosions in the antrum of the stomach. She has also had a previous colonoscopy in July 2018 with some ischemic changes on colonoscopy. She was admitted for neutropenic fever related to new chemotherapy. I have asked to see her with regard to "dysphagia. In talking with the patient and her brother, who is a physician, really it is not an issue of dysphagia, she has severe odynophagia from swallowing secondary to ulceration of her mouth and pharynx with ulcers on her gums, under the tongue, and the throat with even some bloody sputum. She has really not been able to take anything by mouth in the past day or two. She has not had quite this bad in the past. She is started on Halaven chemotherapy about a week prior to this admission. Additionally, also there has been some notation of abnormal liver function. She has known liver metastasis. When she came in for second dose of the medicines, she was in the pancytopenia with development of weight loss, fever, inability to take p.o., they went ahead and admitted her to the hospital. She has had increased bloating recently and she has a little bit of distention. Apparently, her bilirubin has been noted to go up as well. PAST MEDICAL HISTORY: 1. Metastatic breast cancer; multiple failures with chemotherapy, now her new chemotherapy is Halaven, last dose on November 25. 2. Chronic bone pain secondary to metastatic bone disease. PAST SURGICAL HISTORY: Upper and lower endoscopy, pleurodesis for malignant pleural effusion as well. ALLERGIES: NO KNOWN DRUG ALLERGIES. MEDICATIONS: 1. Vitamin D. 2. Flexeril. 3. Pepcid. 4. Duragesic. 5. Gabapentin. 6. Mucinex. 7. Robitussin. 8. Hydralazine. 9. Imodium p.r.n. 10. Milk of magnesia. 11. Morphine. 12. Nystatin. 13. Zofran. 14. Xanax. 15. Senokot. 16. Vancomycin. 17. Ambien. 18. She is on Clinimix as well for nutrition. 19. She was started on Miracle mouth wash. REVIEW OF SYSTEMS: She has constipation and inflamed hemorrhoids probably this would be secondary to pain medicines. She tries to take enemas usually, but does not want take one now. She has been started on some topical steroid. PHYSICAL EXAMINATION: VITAL SIGNS: Pulse 120 to 130; temperature 100.1, 99.3; and blood pressure 117/61. HEENT: Oropharynx notable for ulcerations below the gumline. She cannot lift her tongue to whether or not she has ulcerations there. Roof, her palate looks pretty good, but there are some ulcerations at the gumline internally. She cannot really stick her tongue out, will not let me do a pharyngeal exam. NECK: Supple without nodes. LUNGS: Clear. HEART: Regular rate and rhythm, without clicks or murmurs. ABDOMEN: Soft and nontender. No rebound or guarding. No palpable hepatosplenomegaly. RECTAL: Examination reveals hemorrhoids. LABORATORY DATA: White count is 0.7 with percent neutrophils of 4 meeting criteria for neutropenia, hemoglobin is 8.4, MCV is 102, and platelet count 102. No INR was done. Sodium 140, potassium 3.3, BUN and creatinine are 4 and 0.5, chloride 102, and bicarb 30. Uric acid 7.3, phosphorus 5.7, AST 323 yesterday, ALT is 49. Alk phos is 831, was 893 yesterday, and 606 on 11/17. Albumin is 2.4, globulin is 3.6. Ultrasound: There is normal common bile duct. Multiple liver masses, heterogeneous echotexture in the majority of hepatic parenchyma. Right hepatic liver lobe metastasis 20 cm. Multiple hepatic masses. Right-sided effusion. ASSESSMENT: 1. Metastatic breast cancer. 2. Extensive hepatic metastasis accounting for elevated liver enzymes. 3. Admission with neutropenic fever. 4. Odynophagia secondary to severe mucositis. I think the medical management that is appropriate at this time after reviewing her medications with her nurse. She is on fluconazole IV. With this if the oral nystatin is bothering to her, that can be stopped. The only other thing to be thought is to add antiviral therapy as occasionally people get severe mucositis from severe Sandoval-Kirk like reaction, immunocompromised state from herpes. We will talk with Dr. Duran if this reaction is what one typically sees with this medication or with toxicity from this regimen. There would not be as aggressive to add it. 5. Severe constipation. She has 1 or 2 enemas right now, which is reasonable. We will keep her on the suppositories and hopefully as her mucositis improves, she can take medicines by mouth. She can start doing some oral laxatives. She defers rectal examination. I will follow along with you. Job ID: [id number]
[2019-12-04] MEDS: Morphine 4 MG/ML VIAL SLOW IVP PRN ×3 (04:11→21:13)
[2019-12-04] MEDS: D5W-AA 4.25% with LYTES 1,000 ML BAG IV SCH ×2 (06:20→21:13)
[2019-12-04 06:45] LABS: Hemoglobin 8.1 g/dL (12.0-16.0); Mean Corpuscular HGB CONC 31.6 g/dL (32.0-36.0); Mean Corpuscular Hemoglobin 32.3 pg (27.0-31.0); RBC Distribution Width 23.4 % (11.5-14.5); Red Blood Cell (RBC) Count 2.51 mill/uL (4.20-5.40)
[2019-12-04 07:03] LABS: Mean Platelet Volume 11.1 fL (7.4-10.4); Platelet Count 92 thou/uL (130-400); White Blood Cell (WBC) Count 1.1 thou/uL (4.8-10.8)
[2019-12-04 07:04] LABS: Anisocytosis SLIGHT = 6-15 cells (100X) (0-5/hpf); Band 17 % (5-11); Eosinophils 1 % (0-10); Lymphocytes 53 % (21-51); MDiff Complete? YES; Macrocytosis SLIGHT = 6-15 cells (100X) (0-5/hpf); Metamyelocyte 4 % (0-0); Monocytes 13 % (0-10); Myelocyte 3 % (0-0); Neutrophil 9 % (42-75); Nucleated RBC 11 % (0); Platelet Morphology Comment Appears Decreased; Polychromasia SLIGHT = 2-3 cells (100X) (0-2/hpf)
[2019-12-04] MEDS: Famotidine 20 MG TAB PO SCH ×2 (08:48→20:56)
[2019-12-04] MEDS: Ascorbic Acid 500 mg Chewable Tablet PO SCH (08:48)
[2019-12-04] MEDS: Gabapentin 300 MG CAP PO SCH ×3 (08:49→20:56)
[2019-12-04] MEDS: Saccharomyces boulardii 250 MG CAP PO SCH (08:49)
[2019-12-04] MEDS: Famotidine/PF 20 mg/2ml Vial SLOW IVP SCH ×2 (08:54→20:14)
[2019-12-04] MEDS: Vancomycin 1 GM in Premix Bag 1 BAG IVPB SCH (08:55)
[2019-12-04] MEDS ORDERED: Ipratropium Bromide 2.5 ml Neb NEB PRN (08:58)
--- NOTE | 2019-12-04 11:38 | PDOC.HOSPP ---
- Subjective Encounter Date: 12/04/19 Encounter Time: 11:37 Subjective: Ms. Guallpa was seen today in follow-up of metastatic breast cancer with neutropenic fever. She continues to have mouth pain related to mucositis. she has been able to only get little water down. - Objective Vital Signs & Weight: Vital Signs (12 hours) Temp Pulse Resp BP BP Pulse Ox 12/04/19 08:02 98.7 F 115 H 18 118/59 L 90 L 12/04/19 08:00 89 L 12/04/19 04:00 99.1 F 12/04/19 00:00 98.7 F 120 H 16 110/60 97 Weight Admit Weight 143 lb 6.4 oz Weight 143 lb 6.4 oz I&O: 12/03/19 12/04/19 12/05/19 06:59 06:59 06:59 Intake Total 2100 1830 Output Total 200 Balance 2100 1630 Result Diagrams: 12/04/19 06:30 12/03/19 04:42 Hospitalist ROS - Medication Medications: Active Medications Generic Name Dose Route Start Last Admin Trade Name Freq PRN Reason Stop Dose Admin Acetaminophen 650 mg 12/02/19 19:15 12/03/19 19:22 Tylenol Elixir PO 650 mg Q4H PRN Administration Headache/Fever or Pain (1-3) Amino Acids/Electrolytes/Dextrose 1,000 ml 12/03/19 14:00 12/04/19 06:20 Clinimix E 4.25/5 IV 1,000 ml INF [facility]ILON Administration Ascorbic Acid 1,000 mg 12/03/19 09:00 12/04/19 08:48 Vitamin C PO Not Given DAILY [facility] Bisacodyl 10 mg 12/02/19 18:33 12/03/19 09:16 Dulcolax [place] 10 mg DAILYPRN PRN Administration Constipation Calcium Carbonate 1,000 mg 12/02/19 11:58 12/02/19 18:50 Tums PO 1,000 mg Q4H PRN Administration Heartburn or Indigestion Cholecalciferol 5,000 units 12/02/19 16:00 12/02/19 17:41 Vitamin D3 PO Not Given Q2DAYS [facility] Al Hydroxide/Mg Hydroxide 60 0 ml 12/03/19 18:00 12/04/19 06:30 ml/ Lidocaine HCl 30 ml/ SSW 10 liq Diphenhydramine HCl 75 mg Q6HR [facility] Administration Famotidine 20 mg 12/02/19 21:00 12/04/19 08:54 Pepcid SLOW IVP 20 mg Q12HR [facility] Administration Famotidine 20 mg 12/02/19 21:00 12/04/19 08:48 Pepcid PO Not Given BID [facility] Fentanyl 100 mcg 12/03/19 09:00 12/03/19 09:40 Duragesic TD 100 mcg Q3D [facility] Administration Gabapentin 600 mg 12/02/19 21:00 12/04/19 08:49 Neurontin PO Not Given TID [facility] Hydrocortisone Acetate 25 mg 12/03/19 13:53 12/03/19 21:35 Anusol-Hc NH 25 mg BIDPRN PRN Administration Hemorrhoids Cefepime HCl 2 gm/ Sodium 100 mls @ 200 mls/hr 12/02/19 13:00 12/04/19 00:07 Chloride IVPB 100 mls 0100,1300 [facility] Administration Fluconazole/Sodium Chloride 100 mls @ 100 mls/hr 12/02/19 14:00 12/03/19 15: 07 200 mg/ Device IVPB 100 mls 1400 [facility] Administration Vancomycin HCl 1 gm/ Device 200 mls @ 200 mls/hr 12/03/19 09:00 12/04/19 08: 55 IVPB 200 mls Q12HR [facility] Administration Magnesium Hydroxide 30 ml 12/02/19 18:33 12/02/19 18:51 Milk Of Magnesium PO 30 ml DAILYPRN PRN Administration Constipation Miscellaneous Medication 0 gm 12/03/19 20:54 12/03/19 21:37 Preparation H Ointment TOP 1 appful TIDPRN PRN Administration Hemorrhoids Morphine Sulfate 4 mg 12/02/19 18:29 12/04/19 08:53 Morphine SLOW IVP 4 mg Q4H PRN Administration Pain Saccharomyces Boulardii 250 mg 12/03/19 09:00 12/04/19 08:49 Florastor PO Not Given DAILY [facility] Sodium Chloride 10 ml 12/02/19 09:00 12/03/19 21:24 Flush - Normal Saline IVF 10 ml Q12HR [facility] Administration Tbo-Filgrastim 480 mcg 12/03/19 16:00 12/03/19 16:43 Granix SC 480 mcg 1600 ODILON Administration - Exam Eye: PERRL, scleral icterus Heart: RRR, no murmur, no gallops, no rubs, normal peripheral pulses Respiratory: CTAB, no wheezes, no rales, no ronchi, normal chest expansion, no tachypnea, normal percussion Gastrointestinal: soft (+ hepatomegaly), tender to palpation (+ mild right upper quadrant tenderness) Extremities: no cyanosis, no clubbing, 1+ LE edema Hosp A/P (1) Mucositis (ulcerative) due to antineoplastic therapy Code(s): K12.31 - ORAL MUCOSITIS (ULCERATIVE) DUE TO ANTINEOPLASTIC THERAPY Status: Acute (2) Neutropenic fever Code(s): D70.9 - NEUTROPENIA, UNSPECIFIED; R50.81 - FEVER PRESENTING WITH CONDITIONS CLASSIFIED ELSEWHERE Status: Acute (3) Hypertension Code(s): I10 - ESSENTIAL (PRIMARY) HYPERTENSION Status: Acute Qualifiers: Hypertension type: essential hypertension Qualified Code(s): I10 - Essential (primary) hypertension (4) Stage IV carcinoma of breast Code(s): C50.919 - MALIGNANT NEOPLASM OF UNSP SITE OF UNSPECIFIED FEMALE BREAST Status: Chronic - Plan * Mucositis- continue symptom management with magic mouth wash and Diflucan empirically * Continue to encourage oral intake as tolerated * PPN in the interim * Neutropenic fever- cultures are negative * Her WBC count is beginning to recover- however ANC is still quite low- continue Neutropenic precautions, and Continue empiric antibiotics * HTN- blood pressure is stable
--- NOTE | 2019-12-04 13:51 | PRG ---
DATE OF SERVICE: 12/04/2019 SUBJECTIVE: Ms. Guallpa still has severe oral pain when tried to swallow. She had a small bowel liquid, a little bit of hard jorge, which were very painful to pass. OBJECTIVE: VITAL SIGNS: Temperature max 102.3 on 12/01, 100.5 on 12/01, 100.1 on 12/02, presently 99.1 early this morning and 98.7 now; pulse 115, down from 122; blood pressure 118/59. GENERAL: She has severe oral mucositis still. ABDOMEN: Soft, nontender. EXTREMITIES: No clubbing, cyanosis, or edema. LABORATORY DATA: White count 1.1 with neutrophils of 9%, hemoglobin 8.1, platelet count 92,000. ASSESSMENT: 1. Neutropenic fever, negative urine and blood cultures. 2. Severe oral mucositis, on Miracle mouthwash and Diflucan. 3. Hemorrhoids, they are swollen externally, but did not look infected. When she is about, she has severe anal pain. She likely has a fissure or impaction. She will not permit rectal exam. RECOMMENDATIONS: 1. Consider adding antiviral possibility that she has a disseminated mucosal HSV infection is probably unlikely, we could add that if needed. Would defer to Oncology and I think this is classic mucositis from chemotherapy. I do not think that needs to be added. 2. With regard to her hemorrhoidal pain, I have talked with the nurse about sitz baths. Also we have ordered some pramoxine, which is an Analpram to apply topically to the anal area and canal before and after bowel movements. At this time, we will follow from a distance. If I can be of any further assistance in her care, please do not hesitate to contact. Job ID: [id number]
--- NOTE | 2019-12-04 13:52 | PDOC.MOPN ---
Interval History: she is feeling a little better, her mouth is worse though. she is oob to the bathroom without assistamce. she is constipated. no fevers - Vital Signs Vital Signs: Vital Signs (12 hours) Temp Pulse Resp BP Pulse Ox 12/04/19 08:02 98.7 F 115 H 18 118/59 L 90 L 12/04/19 08:00 89 L 12/04/19 04:00 99.1 F Weight Admit Weight 143 lb 6.4 oz Weight 143 lb 6.4 oz - Physical Exam General: Alert, No acute distress HEENT: Atraumatic, Other (+ scleral icterus) Lungs: Clear to auscultation Cardiovascular: Other (tachy) Abdomen: Normal bowel sounds, Other (liver enlarged) Extremities: No clubbing, No edema Neurological: Normal speech Psych/Mental Status: Mental status NL - Labs Result Diagrams: 12/04/19 06:30 12/03/19 04:42 Lab results: Laboratory Results - last 24 hr 12/04/19 06:30: WBC 1.1 L, RBC 2.51 L, Hgb 8.1 L, Hct 25.6 L, MCV 102.0 H, MCH 32.3 H, MCHC 31.6 L, RDW 23.4 H, Plt Count 92 L, MPV 11.1 H, Neutrophils % ( Manual) 9 L, Band Neuts % (Manual) 17 H, Lymphocytes % (Manual) 53 H, Monocytes % (Manual) 13 H, Eosinophils % (Manual) 1, Metamyelocytes % (Man) 4 H, Myelocytes % 3 H, Lymphocytes # Not Reportable, Nucleated RBCs # (Man) 11 H, Plt Morphology Comment Appears Decreased L, Polychromasia SLIGHT = 2-3 cells, Anisocytosis SLIGHT = 6-15 cells, Macrocytosis SLIGHT = 6-15 cells A/P - Problem (1) Elevated LFTs Current Visit: Yes Code(s): R79.89 - OTHER SPECIFIED ABNORMAL FINDINGS OF BLOOD CHEMISTRY Status: Acute (2) Malnutrition Current Visit: Yes Code(s): E46 - UNSPECIFIED PROTEIN-CALORIE MALNUTRITION Status: Acute (3) Mucositis (ulcerative) due to antineoplastic therapy Current Visit: Yes Code(s): K12.31 - ORAL MUCOSITIS (ULCERATIVE) DUE TO ANTINEOPLASTIC THERAPY Status: Acute (4) Neutropenic fever Current Visit: Yes Code(s): D70.9 - NEUTROPENIA, UNSPECIFIED; R50.81 - FEVER PRESENTING WITH CONDITIONS CLASSIFIED ELSEWHERE Status: Acute (5) Abdominal pain Current Visit: No Code(s): R10.9 - UNSPECIFIED ABDOMINAL PAIN Status: Acute Qualifiers: Abdominal location: generalized Qualified Code(s): R10.84 - Generalized abdominal pain (6) Breast cancer Current Visit: No Status: Acute (7) Epigastric pain Current Visit: No Code(s): R10.13 - EPIGASTRIC PAIN Status: Acute (8) Liver metastases Current Visit: No Code(s): C78.7 - SECONDARY MALIG NEOPLASM OF LIVER AND INTRAHEPATIC BILE DUCT Status: Acute (9) Tachycardia with heart rate 100-120 beats per minute Current Visit: No Code(s): R00.0 - TACHYCARDIA, UNSPECIFIED Status: Acute (10) Bone metastases Current Visit: No Code(s): C79.51 - SECONDARY MALIGNANT NEOPLASM OF BONE Status: Chronic (11) Neutropenia Current Visit: No Code(s): D70.9 - NEUTROPENIA, UNSPECIFIED Status: Chronic - Plan Plan: 1. cont granix 2. cont antibiotics and antifungals 3. add valacyclovir when she can take po 4. cont PPN 5. check LFTs tomorrow 6. OOB to chair, hopefully she can go outisde for mothers day and spend time with her son
[2019-12-04] MEDS: Fluconazole In NaCl,Iso-Osm 200 MG in Premix Bag 1 BAG IVPB SCH (14:48)
[2019-12-04] MEDS: Hydrocortisone 2.5%/Pramoxine 1% CRM 30 GM TUBE PR SCH ×2 (15:56→21:08)
[2019-12-04] MEDS: Levalbuterol HCl 0.63 MG/3 ML NEB NEB SCH ×2 (16:36→22:19)
[2019-12-04] MEDS: Acetylcysteine 10% 100 MG/ML 30 ml Vial INH SCH ×2 (18:59→22:28)
[2019-12-04 20:42] LABS: Vancomycin, Trough 8.9 ug/mL
[2019-12-04] MEDS ORDERED: valACYclovir 500 MG TAB PO SCH (21:00)
[2019-12-04] MEDS: Acetaminophen 650 MG/20.3 ML UDCUP PO PRN (23:43)
[2019-12-04] MEDS ORDERED: Lorazepam 2 MG/ML VIAL SLOW IVP SCH (23:59)
[2019-12-05] MEDS: Cefepime 2 GM in Sodium Chloride 0.9% 100 ML IVPB SCH ×2 (00:26→18:59)
[2019-12-05] MEDS ORDERED: Albuterol Sulfate 1.25 MG/3 ML NEB NEB PRN (00:50)
[2019-12-05] MEDS ORDERED: Ipratropium Bromide 2.5 ml Neb NEB PRN (00:51)
[2019-12-05] MEDS: Aluminum & Magnesium Hydroxide 60 ML, Lidocaine 2% Viscous Solution 30 ML, diphenhydrAM... SSW SCH ×3 (05:57→19:02)
[2019-12-05 06:50] LABS: ALT (SGPT) 34 U/L (8-55); AST (SGOT) 131 U/L (5-34); Albumin 2.3 g/dL (3.5-5.0); Alkaline Phosphatase 794 U/L (40-110); Anion Gap 12 mmol/L (10-20); BUN (Urea Nitrogen) 8 mg/dL (7.0-18.7); Calc. Creatinine Clearance 151 mL/min (70-130); Calcium 7.5 mg/dL (7.8-10.44); Carbon Dioxide 27 mmol/L (22-29); Chloride 101 mmol/L (98-107); Estimated GFR-MDRD Greater than 90; Globulin 3.5 g/dL (2.4-3.5); Glucose 137 mg/dL (70-105); Protein, Total 5.8 g/dL (6.0-8.3); Sodium 137 mmol/L (136-145)
[2019-12-05] MEDS ORDERED: Potassium Chloride 20 MEQ in Premix Bag 1 BAG IVPB SCH ×2 (07:30→12:00)
[2019-12-05] MEDS: Acetylcysteine 10% 100 MG/ML 30 ml Vial INH SCH ×3 (07:37→22:17)
[2019-12-05] MEDS: Levalbuterol HCl 0.63 MG/3 ML NEB NEB SCH ×3 (07:37→22:17)
[2019-12-05 08:31] LABS: Anisocytosis MODERATE=16-30 cells (100X) (0-5/hpf); Band 26 % (5-11); Hemoglobin 7.1 g/dL (12.0-16.0); Lymphocytes 55 % (21-51); MDiff Complete? YES; Mean Corpuscular HGB CONC 31.7 g/dL (32.0-36.0); Mean Corpuscular Hemoglobin 31.9 pg (27.0-31.0); Mean Platelet Volume 7.5 fL (7.4-10.4); Metamyelocyte 4 % (0-0); Monocytes 6 % (0-10); Myelocyte 1 % (0-0); Neutrophil 7 % (42-75); Nucleated RBC 2 % (0); Platelet Count 84 thou/uL (130-400); Platelet Morphology Comment Appears Decreased; RBC Distribution Width 23.3 % (11.5-14.5); Red Blood Cell (RBC) Count 2.21 mill/uL (4.20-5.40); White Blood Cell (WBC) Count 2.3 thou/uL (4.8-10.8)
[2019-12-05] MEDS: Morphine 4 MG/ML VIAL SLOW IVP PRN ×3 (09:23→23:39)
[2019-12-05] MEDS: Acetaminophen 650 MG/20.3 ML UDCUP PO PRN ×2 (09:32→20:36)
[2019-12-05] MEDS ORDERED: Activase 2 MG VIAL CATH SCH ×2 (10:15→12:00)
[2019-12-05] MEDS: Gabapentin 300 MG CAP PO SCH ×3 (10:28→20:50)
[2019-12-05] MEDS: Saccharomyces boulardii 250 MG CAP PO SCH (10:28)
[2019-12-05] MEDS: Ascorbic Acid 500 mg Chewable Tablet PO SCH (10:28)
[2019-12-05] MEDS ORDERED: Hydrocortisone 2.5%/Pramoxine 1% CRM 30 GM TUBE PR PRN (11:02)
--- NOTE | 2019-12-05 12:15 | PDOC.MOPN ---
Interval History: she is weaker today, still constipated and has a bleeding hemorrhoid - Vital Signs Vital Signs: Vital Signs (12 hours) Temp Pulse Resp BP Pulse Ox 12/05/19 08:00 99.6 F 126 H 18 116/61 98 12/05/19 07:37 112 H 18 99 12/05/19 04:00 99 F 12/05/19 01:01 98.7 F 12/05/19 00:37 97 Weight Admit Weight 143 lb 6.4 oz Weight 143 lb 6.4 oz - Physical Exam General: Alert, Other (weak appearing) Lungs: Clear to auscultation Cardiovascular: Regular rate Abdomen: Normal bowel sounds, Other (slightly distended, liver edge palpable, tender) Extremities: No edema Skin: No rashes Neurological: Normal speech Psych/Mental Status: Mental status NL - Labs Result Diagrams: 12/05/19 06:15 12/05/19 06:15 Lab results: Laboratory Results - last 24 hr 12/05/19 06:15: Sodium 137, Potassium 3.0 L, Chloride 101, Carbon Dioxide 27, Anion Gap 12, BUN 8, Creatinine 0.52 L, Estimated GFR (MDRD) Greater than 90, Glucose 137 H, Calcium 7.5 L, Total Bilirubin 4.0 H, AST 131 H, ALT 34, Alkaline Phosphatase 794 H, Serum Total Protein 5.8 L, Albumin 2.3 L, Globulin 3.5, Albumin/Globulin Ratio 0.7 L 12/05/19 06:15: WBC 2.3 L, RBC 2.21 L, Hgb 7.1 L, Hct 22.3 L, MCV 101.0 H, MCH 31.9 H, MCHC 31.7 L, RDW 23.3 H, Plt Count 84 L, MPV 7.5, Neutrophils % (Manual ) 7 L, Band Neuts % (Manual) 26 H, Lymphocytes % (Manual) 55 H, Monocytes % ( Manual) 6, Basophils % (Manual) 1, Metamyelocytes % (Man) 4 H, Myelocytes % 1 H , Nucleated RBCs # (Man) 2 H, Plt Morphology Comment Appears Decreased L, Anisocytosis MODERATE=16-30 cells H 12/04/19 20:10: Vancomycin Trough 8.9 A/P - Problem (1) Elevated LFTs Current Visit: Yes Code(s): R79.89 - OTHER SPECIFIED ABNORMAL FINDINGS OF BLOOD CHEMISTRY Status: Acute (2) Malnutrition Current Visit: Yes Code(s): E46 - UNSPECIFIED PROTEIN-CALORIE MALNUTRITION Status: Acute (3) Mucositis (ulcerative) due to antineoplastic therapy Current Visit: Yes Code(s): K12.31 - ORAL MUCOSITIS (ULCERATIVE) DUE TO ANTINEOPLASTIC THERAPY Status: Acute (4) Neutropenic fever Current Visit: Yes Code(s): D70.9 - NEUTROPENIA, UNSPECIFIED; R50.81 - FEVER PRESENTING WITH CONDITIONS CLASSIFIED ELSEWHERE Status: Acute (5) Abdominal pain Current Visit: No Code(s): R10.9 - UNSPECIFIED ABDOMINAL PAIN Status: Acute Qualifiers: Abdominal location: generalized Qualified Code(s): R10.84 - Generalized abdominal pain (6) Breast cancer Current Visit: No Status: Acute (7) Epigastric pain Current Visit: No Code(s): R10.13 - EPIGASTRIC PAIN Status: Acute (8) Liver metastases Current Visit: No Code(s): C78.7 - SECONDARY MALIG NEOPLASM OF LIVER AND INTRAHEPATIC BILE DUCT Status: Acute (9) Tachycardia with heart rate 100-120 beats per minute Current Visit: No Code(s): R00.0 - TACHYCARDIA, UNSPECIFIED Status: Acute (10) Bone metastases Current Visit: No Code(s): C79.51 - SECONDARY MALIGNANT NEOPLASM OF BONE Status: Chronic (11) Neutropenia Current Visit: No Code(s): D70.9 - NEUTROPENIA, UNSPECIFIED Status: Chronic - Plan Plan: 1. transfuse 1 U PRBCs 2. cont granix for one more day then d/c 3. cont pain meds 4. LFTs improving, cont to monitor 5. cont laxatives, appreciate GI help
[2019-12-05] MEDS: Famotidine 20 MG TAB PO SCH (14:57)
[2019-12-05] MEDS: Famotidine/PF 20 mg/2ml Vial SLOW IVP SCH (14:58)
--- NOTE | 2019-12-05 15:29 | PDOC.HOSPP ---
- Subjective Encounter Date: 12/05/19 Encounter Time: 15:28 Subjective: candido Guallpa was seen today in follow-up of severe mucositis, and neutropenic fever. She continues to have mouth pain. She was able to get one Ensure clear down. Rectal pain continues as well as some rectal bleeding. - Objective Vital Signs & Weight: Vital Signs (12 hours) Temp Pulse Resp BP BP Pulse Ox 12/05/19 14:22 127 H 20 94 L 12/05/19 12:00 98.5 F 126 H 18 112/56 L 98 12/05/19 08:00 99.6 F 126 H 18 116/61 98 12/05/19 07:37 112 H 18 99 12/05/19 04:00 99 F Weight Admit Weight 143 lb 6.4 oz Weight 143 lb 6.4 oz I&O: 12/04/19 12/05/19 12/06/19 06:59 06:59 06:59 Intake Total 1830 237 Output Total 200 150 Balance 1630 87 Result Diagrams: 12/05/19 06:15 12/05/19 06:15 Hospitalist ROS - Medication Medications: Active Medications Generic Name Dose Route Start Last Admin Trade Name Freq PRN Reason Stop Dose Admin Acetaminophen 650 mg 12/02/19 19:15 12/05/19 09:32 Tylenol Elixir PO 650 mg Q4H PRN Administration Headache/Fever or Pain (1-3) Acetylcysteine 600 mg 12/04/19 19:00 12/05/19 14:22 Mucomyst 10% (Oral Or Inh) INH 600 mg [id number] ODILON Administration Amino Acids/Electrolytes/Dextrose 1,000 ml 12/03/19 14:00 12/04/19 21:13 Clinimix E 4.25/5 IV 1,000 ml INF ODILON Administration Ascorbic Acid 1,000 mg 12/03/19 09:00 12/05/19 10:28 Vitamin C PO Not Given DAILY ODILON Bisacodyl 10 mg 12/02/19 18:33 12/03/19 09:16 Dulcolax NV 10 mg DAILYPRN PRN Administration Constipation Calcium Carbonate 1,000 mg 12/02/19 11:58 12/02/19 18:50 Tums PO 1,000 mg Q4H PRN Administration Heartburn or Indigestion Cholecalciferol 5,000 units 12/02/19 16:00 12/04/19 16:57 Vitamin D3 PO Not Given Q2DAYS ODILON Al Hydroxide/Mg Hydroxide 60 0 ml 12/03/19 18:00 12/05/19 13:31 ml/ Lidocaine HCl 30 ml/ SSW 10 liq Diphenhydramine HCl 75 mg Q6HR ODILON Administration Fentanyl 100 mcg 12/03/19 09:00 12/03/19 09:40 Duragesic TD 100 mcg Q3D ODILON Administration Gabapentin 600 mg 12/02/19 21:00 12/05/19 14:59 Neurontin PO Not Given TID ODILON Hydrocortisone Acetate 25 mg 12/03/19 13:53 12/03/19 21:35 Anusol-Hc NV 25 mg BIDPRN PRN Administration Hemorrhoids Hydrocortisone/Pramoxine 1 gm 12/05/19 11:02 12/05/19 13:27 Analpram Hc NV 12/15/19 11:02 1 applic TID PRN Administration Topical Anesthetic Cefepime HCl 2 gm/ Sodium 100 mls @ 200 mls/hr 12/02/19 13:00 12/05/19 00:26 Chloride IVPB 100 mls 0100,1300 ODILON Administration Fluconazole/Sodium Chloride 100 mls @ 100 mls/hr 12/02/19 14:00 12/04/19 14: 48 200 mg/ Device IVPB 100 mls 1400 ODILON Administration Vancomycin HCl 2 gm/ Sodium 500 mls @ 250 mls/hr 12/04/19 21:00 12/04/19 21: 08 Chloride IVPB 500 mls Q12HR ODILON Administration Levalbuterol HCl 0.63 mg 12/04/19 15:11 12/05/19 14:22 Xopenex NEB 0.63 mg [id number] ODILON Administration Magnesium Hydroxide 30 ml 12/02/19 18:33 12/02/19 18:51 Milk Of Magnesium PO 30 ml DAILYPRN PRN Administration Constipation Mineral Oil/White Petrolatum 0 gm 12/04/19 14:04 12/04/19 14:49 Aquaphor 99 Gm TOP 1 applic PRN PRN Administration SKIN Miscellaneous Medication 0 gm 12/03/19 20:54 12/03/19 21:37 Preparation H Ointment TOP 1 appful TIDPRN PRN Administration Hemorrhoids Morphine Sulfate 4 mg 12/02/19 18:29 12/05/19 09:23 Morphine SLOW IVP 4 mg Q4H PRN Administration Pain Saccharomyces Boulardii 250 mg 12/03/19 09:00 12/05/19 10:28 Florastor PO Not Given DAILY ODILON Sodium Chloride 10 ml 12/02/19 09:00 12/05/19 13:28 Flush - Normal Saline IVF 10 ml Q12HR ODILON Administration Tbo-Filgrastim 480 mcg 12/03/19 16:00 12/04/19 17:17 Granix SC 480 mcg 1600 ODILON Administration - Exam Eye: PERRL Heart: RRR, no murmur, no gallops, no rubs, normal peripheral pulses Respiratory: CTAB, no wheezes, no rales, no ronchi, normal chest expansion Gastrointestinal: soft, non-tender, non-distended, normal bowel sounds, no palpable masses Extremities: no cyanosis, no edema Hosp A/P (1) Mucositis (ulcerative) due to antineoplastic therapy Code(s): K12.31 - ORAL MUCOSITIS (ULCERATIVE) DUE TO ANTINEOPLASTIC THERAPY Status: Acute (2) Neutropenic fever Code(s): D70.9 - NEUTROPENIA, UNSPECIFIED; R50.81 - FEVER PRESENTING WITH CONDITIONS CLASSIFIED ELSEWHERE Status: Acute (3) Hypertension Code(s): I10 - ESSENTIAL (PRIMARY) HYPERTENSION Status: Acute Qualifiers: Hypertension type: essential hypertension Qualified Code(s): I10 - Essential (primary) hypertension (4) Stage IV carcinoma of breast Code(s): C50.919 - MALIGNANT NEOPLASM OF UNSP SITE OF UNSPECIFIED FEMALE BREAST Status: Chronic - Plan * Mucositis- continue supportive care, and * Continue to encourage oral intake as tolerated * PPN in the interim * Neutropenic fever- continue empiric antibiotics * Her WBC count is recovering with Filgrastim * Hemorrhoidal bleeding and pain- continue as per GI recommendations * HTN- blood pressure is controlled * Hypokalemia - continue to replace
[2019-12-05] MEDS: Potassium Chloride 20 MEQ in Premix Bag 1 BAG IVPB SCH ×2 (15:45→20:40)
[2019-12-05] MEDS: Hydrocortisone 2.5%/Pramoxine 1% CRM 30 GM TUBE PR SCH (19:42)
[2019-12-05] MEDS: Fluconazole In NaCl,Iso-Osm 200 MG in Premix Bag 1 BAG IVPB SCH (19:45)
[2019-12-05] MEDS ORDERED: Sodium Chloride 0.9% (PF) 10 ML VIAL FS PRN (20:22)
[2019-12-06] MEDS: Aluminum & Magnesium Hydroxide 60 ML, Lidocaine 2% Viscous Solution 30 ML, diphenhydrAM... SSW SCH ×4 (00:01→18:08)
[2019-12-06] MEDS: Oxymetazoline HCl 0.05% (30 ML BOT) NS PRN ×2 (00:02→11:51)
[2019-12-06] MEDS: Cefepime 2 GM in Sodium Chloride 0.9% 100 ML IVPB SCH ×2 (00:04→13:35)
[2019-12-06] MEDS: Acetylcysteine 10% 100 MG/ML 30 ml Vial INH SCH ×2 (00:09→07:41)
[2019-12-06] MEDS: Lorazepam 2 MG/ML VIAL SLOW IVP PRN ×2 (01:13→15:38)
[2019-12-06] MEDS: D5W-AA 4.25% with LYTES 1,000 ML BAG IV SCH ×2 (01:14→15:25)
[2019-12-06] MEDS: Acetaminophen 650 MG/20.3 ML UDCUP PO PRN ×2 (06:47→15:25)
[2019-12-06 07:14] LABS: Anion Gap 13 mmol/L (10-20); BUN (Urea Nitrogen) 6 mg/dL (7.0-18.7); Calc. Creatinine Clearance 151 mL/min (70-130); Calcium 7.7 mg/dL (7.8-10.44); Carbon Dioxide 26 mmol/L (22-29); Chloride 103 mmol/L (98-107); Estimated GFR-MDRD Greater than 90; Glucose 108 mg/dL (70-105); Potassium 3.3 mmol/L (3.5-5.1); Sodium 139 mmol/L (136-145)
[2019-12-06 07:16] LABS: ALT (SGPT) 31 U/L (8-55); AST (SGOT) 143 U/L (5-34); Albumin 2.3 g/dL (3.5-5.0); Alkaline Phosphatase 932 U/L (40-110); Bilirubin, Direct 3.1 mg/dL (0.1-0.3); Bilirubin, Total 4.1 mg/dL (0.2-1.2); Protein, Total 5.9 g/dL (6.0-8.3)
[2019-12-06 07:19] LABS: Hemoglobin 7.8 g/dL (12.0-16.0); Mean Corpuscular HGB CONC 31.3 g/dL (32.0-36.0); Mean Corpuscular Hemoglobin 31.3 pg (27.0-31.0); Mean Corpuscular Volume 99.9 fL (78.0-98.0); Mean Platelet Volume 6.3 fL (7.4-10.4); Platelet Count 65 thou/uL (130-400); RBC Distribution Width 23.8 % (11.5-14.5); Red Blood Cell (RBC) Count 2.48 mill/uL (4.20-5.40); White Blood Cell (WBC) Count 4.9 thou/uL (4.8-10.8)
--- NOTE | 2019-12-06 07:27 | PRG ---
DATE OF SERVICE: 12/05/2019 SUBJECTIVE: Ms. Guallpa is resting in bed. She had a bowel movement with a little bit of blood in the stool. Her brother is at the bedside today. She still states her mouth hurts about the same as before. She denies any abdominal pain. OBJECTIVE: VITAL SIGNS: Temperature 99.6, it was 101 last night. Pulse 112 to 126. Blood pressure 116/61, O2 sat 98. HEENT: Oropharynx still has mucositis. LUNGS: Clear. HEART: Regular rate and rhythm. ABDOMEN: Nontender. Examination of perianal area reveals the hemorrhoids to be improved. LABORATORY DATA: White count 2.3, hemoglobin 7.1, platelet count 84,000. Sodium 137, potassium 3. BUN and creatinine are 8 and 0.5, bilirubin is 4, down from 5.9 two days ago. AST 131, ALT 34, alkaline phosphatase 794. Cultures, negative blood and urine thus far from 12/01. ASSESSMENT: 1. Neutropenic fever. 2. Metastatic breast cancer with mass replacement of liver with tumor. 3. Severe mucositis. 4. Hemorrhoids and constipation issues. 5. Slight drop in hemoglobin to 7.1. It does not appear that she is having overt hemorrhage. This seems to be hemorrhoidal bleeding based on evaluation of rectum and blood in her bedside commode. 6. Drop in platelet count. It is unclear again if this is from drug toxicity or other processes. Chemotherapy would be the obvious issue. Her brother was wondering about her being on Pepcid, so the Pepcid has been stopped and she has been started on PPI. RECOMMENDATIONS: 1. Hold H2 blockers. Use PPIs. 2. Continue topical therapy with hydrocortisone with pramoxine for pain. I have discussed this with the patient's nurse. They can use the hydrocortisone cream externally at the hemorrhoids for swelling. 3. Continue symptomatic management of oral mucositis. We will follow from a distance at this point in time. Job ID: [id number]
[2019-12-06] MEDS: Levalbuterol HCl 0.63 MG/3 ML NEB NEB SCH ×3 (07:42→22:18)
[2019-12-06 08:01] LABS: Band 37 % (5-11); Hypochromia SLIGHT = 6-15 cells (100X) (0-5/hpf); Lymphocytes 22 % (21-51); MDiff Complete? YES; Metamyelocyte 2 % (0-0); Monocytes 14 % (0-10); Myelocyte 5 % (0-0); Neutrophil 20 % (42-75); Ovalocytes SLIGHT = 2-5 cells (100X) (0-1/hpf); Platelet Morphology Comment Appears Decreased; Polychromasia SLIGHT = 2-3 cells (100X) (0-2/hpf)
[2019-12-06] MEDS: Ascorbic Acid 500 mg Chewable Tablet PO SCH (08:30)
[2019-12-06] MEDS: Gabapentin 300 MG CAP PO SCH ×3 (08:30→22:00)
[2019-12-06] MEDS: Saccharomyces boulardii 250 MG CAP PO SCH (08:30)
[2019-12-06] MEDS: Potassium Chloride 10 MEQ in Premix Bag 1 BAG IVPB SCH ×6 (08:33→20:34)
[2019-12-06] MEDS: Pantoprazole 40 MG VIAL IVP SCH (09:55)
--- NOTE | 2019-12-06 10:24 | PDOC.HOSPP ---
- Subjective Encounter Date: 12/06/19 Encounter Time: 10:22 Subjective: Ms. Guallpa was seen today in follow-up of Neutropenic fever, and severe mucositis. She appears very weak this morning. She says she feels very tired. She was able to get some water down, and not much else. - Objective Vital Signs & Weight: Vital Signs (12 hours) Temp Pulse Resp BP Pulse Ox 12/06/19 08:00 99.5 F 130 H 20 118/57 L 95 12/06/19 06:30 101.8 F H 12/06/19 00:29 98 12/05/19 23:36 99.0 F Weight Admit Weight 143 lb 6.4 oz Weight 143 lb 6.4 oz I&O: 12/05/19 12/06/19 12/07/19 06:59 06:59 06:59 Intake Total 917 Output Total 750 Balance 167 Result Diagrams: 12/06/19 06:40 12/06/19 06:40 Hospitalist ROS - Medication Medications: Active Medications Generic Name Dose Route Start Last Admin Trade Name Freq PRN Reason Stop Dose Admin Acetaminophen 650 mg 12/02/19 19:15 12/06/19 06:47 Tylenol Elixir PO 650 mg Q4H PRN Administration Headache/Fever or Pain (1-3) Acetylcysteine 600 mg 12/04/19 19:00 12/06/19 07:41 Mucomyst 10% (Oral Or Inh) INH Not Given [id number] ODILON Amino Acids/Electrolytes/Dextrose 1,000 ml 12/03/19 14:00 12/06/19 01:14 Clinimix E 4.25/5 IV 1,000 ml INF ODILON Administration Ascorbic Acid 1,000 mg 12/03/19 09:00 12/05/19 10:28 Vitamin C PO Not Given DAILY ODILON Bisacodyl 10 mg 12/02/19 18:33 12/03/19 09:16 Dulcolax [place] 10 mg DAILYPRN PRN Administration Constipation Calcium Carbonate 1,000 mg 12/02/19 11:58 12/02/19 18:50 Tums PO 1,000 mg Q4H PRN Administration Heartburn or Indigestion Cholecalciferol 5,000 units 12/02/19 16:00 12/04/19 16:57 Vitamin D3 PO Not Given Q2DAYS ODILON Al Hydroxide/Mg Hydroxide 60 0 ml 12/03/19 18:00 12/06/19 06:28 ml/ Lidocaine HCl 30 ml/ SSW 10 liq Diphenhydramine HCl 75 mg Q6HR ODILON Administration Fentanyl 100 mcg 12/03/19 09:00 12/03/19 09:40 Duragesic TD 100 mcg Q3D ODILON Administration Gabapentin 600 mg 12/02/19 21:00 12/05/19 20:50 Neurontin PO Not Given TID ODILON Hydrocortisone Acetate 25 mg 12/03/19 13:53 12/03/19 21:35 Anusol-Hc OK 25 mg BIDPRN PRN Administration Hemorrhoids Hydrocortisone/Pramoxine 1 gm 12/05/19 11:02 12/05/19 13:27 Analpram Hc OK 12/15/19 11:02 1 applic TID PRN Administration Topical Anesthetic Cefepime HCl 2 gm/ Sodium 100 mls @ 200 mls/hr 12/02/19 13:00 12/06/19 00:04 Chloride IVPB 100 mls 0100,1300 ODILON Administration Fluconazole/Sodium Chloride 100 mls @ 100 mls/hr 12/02/19 14:00 12/05/19 19: 45 200 mg/ Device IVPB 100 mls 1400 ODILON Administration Vancomycin HCl 2 gm/ Sodium 500 mls @ 250 mls/hr 12/04/19 21:00 12/05/19 21: 50 Chloride IVPB 500 mls Q12HR ODILON Administration Levalbuterol HCl 0.63 mg 12/04/19 15:11 12/06/19 07:42 Xopenex NEB Not Given [id number] ODILON Lorazepam 1 mg 12/06/19 00:49 12/06/19 01:13 Ativan SLOW IVP 1 mg HSPRN PRN Administration Insomnia Magnesium Hydroxide 30 ml 12/02/19 18:33 12/02/19 18:51 Milk Of Magnesium PO 30 ml DAILYPRN PRN Administration Constipation Mineral Oil/White Petrolatum 0 gm 12/04/19 14:04 12/04/19 14:49 Aquaphor 99 Gm TOP 1 applic PRN PRN Administration SKIN Miscellaneous Medication 0 gm 12/03/19 20:54 12/03/19 21:37 Preparation H Ointment TOP 1 appful TIDPRN PRN Administration Hemorrhoids Morphine Sulfate 4 mg 12/02/19 18:29 12/05/19 23:39 Morphine SLOW IVP 4 mg Q4H PRN Administration Pain Oxymetazoline HCl 0 ml 12/05/19 23:52 12/06/19 00:02 Nasal Decongestant NS 12/08/19 23:53 2 ml Q6H PRN Administration Allergies Saccharomyces Boulardii 250 mg 12/03/19 09:00 12/05/19 10:28 Florastor PO Not Given DAILY ODILON Sodium Chloride 10 ml 12/02/19 09:00 12/06/19 08:34 Flush - Normal Saline IVF 10 ml Q12HR ODILON Administration Tbo-Filgrastim 480 mcg 12/03/19 16:00 12/05/19 17:23 Granix SC 480 mcg 1600 ODILON Administration - Exam Eye: PERRL Heart: RRR, no murmur, no gallops, no rubs, normal peripheral pulses Respiratory: CTAB, no wheezes, no rales, no ronchi, normal chest expansion Gastrointestinal: soft, non-tender, non-distended, normal bowel sounds Extremities: no cyanosis, no edema Hosp A/P (1) Mucositis (ulcerative) due to antineoplastic therapy Code(s): K12.31 - ORAL MUCOSITIS (ULCERATIVE) DUE TO ANTINEOPLASTIC THERAPY Status: Acute (2) Neutropenic fever Code(s): D70.9 - NEUTROPENIA, UNSPECIFIED; R50.81 - FEVER PRESENTING WITH CONDITIONS CLASSIFIED ELSEWHERE Status: Acute (3) Hypertension Code(s): I10 - ESSENTIAL (PRIMARY) HYPERTENSION Status: Acute Qualifiers: Hypertension type: essential hypertension Qualified Code(s): I10 - Essential (primary) hypertension (4) Stage IV carcinoma of breast Code(s): C50.919 - MALIGNANT NEOPLASM OF UNSP SITE OF UNSPECIFIED FEMALE BREAST Status: Chronic - Plan * Mucositis- continue supportive care, and * Continue to encourage oral intake as tolerated * Continue PPN * Neutropenic fever- she had an elevated temperature this morning- will monitor the trend, may need ID consult * Her WBC count is better, up to 4.9 with an ANC of about 2.5K * Hemorrhoidal bleeding and pain- continue symptomatic management * HTN- blood pressure is stable * Hypokalemia - continue to replace
[2019-12-06] MEDS: fentaNYL 50 mcg/hour Patch TD SCH (10:44)
[2019-12-06] MEDS ORDERED: Potassium Chloride 20 MEQ/100 ML PREMIX BAG IVPB SCH (12:00)
--- NOTE | 2019-12-06 13:38 | PDOC.MOPN ---
Interval History: In pain at this time, due for morphine - Vital Signs Vital Signs: Vital Signs (12 hours) Temp Pulse Resp BP Pulse Ox 12/06/19 12:00 99.7 F H 127 H 20 107/56 L 93 L 12/06/19 08:00 99.5 F 130 H 20 118/57 L 95 12/06/19 06:30 101.8 F H Weight Admit Weight 143 lb 6.4 oz Weight 143 lb 6.4 oz - Physical Exam General: Alert HEENT: Atraumatic Lungs: Other Cardiovascular: Regular rate Neurological: Normal speech - Labs Result Diagrams: 12/06/19 06:40 12/06/19 06:40 Lab results: Laboratory Results - last 24 hr 12/06/19 06:40: Total Bilirubin 4.1 H, Direct Bilirubin 3.1 H, AST 143 H, ALT 31 , Alkaline Phosphatase 932 H, Serum Total Protein 5.9 L, Albumin 2.3 L 12/06/19 06:40: WBC 4.9, RBC 2.48 L, Hgb 7.8 L, Hct 24.8 L, MCV 99.9 H, MCH 31.3 H, MCHC 31.3 L, RDW 23.8 H, Plt Count 65 L, MPV 6.3 L, Neutrophils % ( Manual) 20 L, Band Neuts % (Manual) 37 H, Lymphocytes % (Manual) 22, Monocytes % (Manual) 14 H, Metamyelocytes % (Man) 2 H, Myelocytes % 5 H, Lymphocytes # Not Reportable, Hypochromia SLIGHT = 6-15 cells, Plt Morphology Comment Appears Decreased L, Polychromasia SLIGHT = 2-3 cells, Ovalocytes SLIGHT = 2-5 cells 12/06/19 06:40: Sodium 139, Potassium 3.3 L, Chloride 103, Carbon Dioxide 26, Anion Gap 13, BUN 6 L, Creatinine 0.52 L, Estimated GFR (MDRD) Greater than 90 , Glucose 108 H, Calcium 7.7 L 12/05/19 13:18: Blood Type O POSITIVE, Antibody Screen NEGATIVE, Crossmatch See Detail Status: lab reviewed by me A/P - Problem (1) Elevated LFTs Current Visit: Yes Code(s): R79.89 - OTHER SPECIFIED ABNORMAL FINDINGS OF BLOOD CHEMISTRY Status: Acute (2) Mucositis (ulcerative) due to antineoplastic therapy Current Visit: Yes Code(s): K12.31 - ORAL MUCOSITIS (ULCERATIVE) DUE TO ANTINEOPLASTIC THERAPY Status: Acute (3) Breast cancer Current Visit: No Status: Acute - Plan Plan: 1. continue PPN 2. Morphine and fentanyl for pain 3. LFT's stable, continue to monitor 4. platelets declining, monitor. No transfusion required. 5. discussed with Dr. Duran.
[2019-12-06] MEDS: Morphine 4 MG/ML VIAL SLOW IVP PRN ×2 (13:50→20:31)
--- NOTE | 2019-12-06 14:14 | PRG ---
DATE OF SERVICE: 12/06/2019 SUBJECTIVE: Melissa states she feels much weaker today. However, her oral pain better. She can drink water and she has had a little bit of yogurt. Her anal pain is better. She is not having bleeding, but she is having multiple stools. She thinks she is having some diarrhea from the Maalox. OBJECTIVE: VITAL SIGNS: Temperature is 99, it was 101.8 at 6 this morning, it was 101 last night, yesterday it was very close to 101; pulse is 127, blood pressure 106/56. HEENT: Oropharynx, little bit improved. She actually looks better hydrated to me. She is able to swallow water, but she feels worse. She is not short of breath. ABDOMEN: Soft. RECTAL: Deferred. LABORATORY DATA: Sodium 139, potassium 3.3, BUN and creatinine of 6 and 0.52, bilirubin is 4.1, direct is 3.1, AST 143, ALT 31, and alkaline phosphatase is 932. Blood cultures today are negative. ASSESSMENT: 1. Neutropenic fever. She is having some diarrhea. Clostridium difficile is going to be checked that has been ordered already. 2. Fecal impaction, probably resolved. Anal pain is better. Rectal bleeding from hemorrhoids resolved. 3. Severe mucositis, improved. 4. Tachycardia. I think that is probably related to neutropenic fever, although she shows no overt signs of sepsis, does not appear to be dehydrated. DVTs are always a concern . With the rectal bleeding resolved, she could go onto a low prophylaxis with medicine, otherwise she can stay on nonmedical SCDs for now. Job ID: [id number]
[2019-12-06] MEDS ORDERED: ALPRAZolam 0.5 MG TAB PO PRN (15:45)
[2019-12-06] MEDS: Fluconazole In NaCl,Iso-Osm 200 MG in Premix Bag 1 BAG IVPB SCH (16:36)
[2019-12-06] MEDS ORDERED: fentaNYL 75 mcg/hour Patch TD SCH (23:00)
[2019-12-06] MEDS ORDERED: Lorazepam 2 MG/ML VIAL SLOW IVP SCH (23:30)
[2019-12-07] MEDS ORDERED: Lorazepam 2 MG/ML VIAL SLOW IVP PRN (00:08)
[2019-12-07] MEDS: Benzonatate 100 MG CAP PO PRN ×2 (00:09→18:29)
[2019-12-07] MEDS: Aluminum & Magnesium Hydroxide 60 ML, Lidocaine 2% Viscous Solution 30 ML, diphenhydrAM... SSW SCH ×5 (00:20→23:51)
[2019-12-07] MEDS: Cefepime 2 GM in Sodium Chloride 0.9% 100 ML IVPB SCH ×3 (00:43→20:37)
[2019-12-07] MEDS: Morphine 4 MG/ML VIAL SLOW IVP PRN (04:22)
[2019-12-07 05:03] LABS: ALT (SGPT) 24 U/L (8-55); AST (SGOT) 133 U/L (5-34); Albumin 2.1 g/dL (3.5-5.0); Alkaline Phosphatase 959 U/L (40-110); Anion Gap 10 mmol/L (10-20); BUN (Urea Nitrogen) 6 mg/dL (7.0-18.7); Calc. Creatinine Clearance 160 mL/min (70-130); Calcium 7.5 mg/dL (7.8-10.44); Carbon Dioxide 27 mmol/L (22-29); Chloride 103 mmol/L (98-107); Estimated GFR-MDRD Greater than 90; Globulin 3.5 g/dL (2.4-3.5); Glucose 111 mg/dL (70-105); Magnesium 2.2 mg/dL (1.6-2.6); Potassium 3.4 mmol/L (3.5-5.1); Protein, Total 5.6 g/dL (6.0-8.3); Sodium 137 mmol/L (136-145)
[2019-12-07 05:08] LABS: Phosphorus 1.3 mg/dL (2.3-4.7)
[2019-12-07] MEDS ORDERED: Furosemide 40 MG/4 ML VIAL SLOW IVP SCH (05:15)
[2019-12-07 05:34] LABS: Anisocytosis MODERATE=16-30 cells (100X) (0-5/hpf); Band 33 % (5-11); Hemoglobin 10.1 g/dL (12.0-16.0); Lymphocytes 11 % (21-51); MDiff Complete? YES; Mean Corpuscular HGB CONC 30.5 g/dL (32.0-36.0); Mean Corpuscular Hemoglobin 30.7 pg (27.0-31.0); Mean Platelet Volume 6.8 fL (7.4-10.4); Metamyelocyte 1 % (0-0); Monocytes 14 % (0-10); Myelocyte 3 % (0-0); Neutrophil 38 % (42-75); Nucleated RBC 7 % (0); Platelet Count 48 thou/uL (130-400); Platelet Morphology Comment Appears Decreased; RBC Distribution Width 23.8 % (11.5-14.5); Red Blood Cell (RBC) Count 3.29 mill/uL (4.20-5.40); White Blood Cell (WBC) Count 5.8 thou/uL (4.8-10.8)
[2019-12-07] MEDS ORDERED: Potassium Phosphate 30 MMOL in Sodium Chloride 0.9% 500 ML IVPB SCH (05:45)
--- NOTE | 2019-12-07 07:54 | RAD ---
Exam: Chest one view HISTORY:Shortness of breath Comparison: 11/26/2019, 12/02/2019 FINDINGS: Lines and tubes: Stable left-sided Mediport catheter and left-sided chest tube. Cardiac silhouette: Normal Aorta: Unremarkable Pulmonary vessels: Normal Costophrenic angles: Bilateral pleural effusions, unchanged. LUNGS: Diffuse interstitial and alveolar opacities, unchanged Pneumothorax: None Osseous abnormalities: None IMPRESSION: No significant interval change
--- NOTE | 2019-12-07 08:39 | PDOC.HOSPP ---
- Subjective Encounter Date: 12/07/19 Encounter Time: 08:38 Subjective: Ms. Hudson was seen today in follow-up of metastatic breast cancer. She appears very weak. She is tachypneic and tachycardic, and it is reported that her oxygen saturations have been dropping. - Objective Vital Signs & Weight: Vital Signs (12 hours) Temp Pulse Resp BP BP Pulse Ox 12/07/19 08:00 88 L 12/07/19 04:00 93 L 12/07/19 03:59 99.7 F H 137 H 20 120/57 L 93 L 12/07/19 00:00 99.2 F 129 H 20 116/56 L 97 12/06/19 22:18 126 H 24 H Weight Admit Weight 143 lb 6.4 oz Weight 143 lb 6.4 oz I&O: 12/06/19 12/07/19 12/08/19 06:59 06:59 06:59 Intake Total 917 1707 Output Total 750 200 Balance 167 1507 Result Diagrams: 12/07/19 04:20 12/07/19 04:20 Hospitalist ROS - Medication Medications: Active Medications Generic Name Dose Route Start Last Admin Trade Name Freq PRN Reason Stop Dose Admin Acetaminophen 650 mg 12/02/19 19:15 12/06/19 15:25 Tylenol Elixir PO 650 mg Q4H PRN Administration Headache/Fever or Pain (1-3) Amino Acids/Electrolytes/Dextrose 1,000 ml 12/03/19 14:00 12/06/19 15:25 Clinimix E 4.25/5 IV 1,000 ml INF ODILON Administration Ascorbic Acid 1,000 mg 12/03/19 09:00 12/06/19 08:30 Vitamin C PO Not Given DAILY ODILON Benzonatate 100 mg 12/06/19 23:19 12/07/19 00:09 Tessalon PO 100 mg Q4H PRN Administration Cough Bisacodyl 10 mg 12/02/19 18:33 12/03/19 09:16 Dulcolax [place] 10 mg DAILYPRN PRN Administration Constipation Calcium Carbonate 1,000 mg 12/02/19 11:58 12/02/19 18:50 Tums PO 1,000 mg Q4H PRN Administration Heartburn or Indigestion Cholecalciferol 5,000 units 12/02/19 16:00 12/06/19 16:45 Vitamin D3 PO Not Given Q2DAYS ODILON Al Hydroxide/Mg Hydroxide 60 0 ml 12/03/19 18:00 12/07/19 06:26 ml/ Lidocaine HCl 30 ml/ SSW Not Given Diphenhydramine HCl 75 mg Q6HR ODILON Diltiazem HCl 30 mg 12/07/19 06:00 12/07/19 06:15 Cardizem PO 30 mg Q8HR ODILON Administration Fentanyl 150 mcg 12/06/19 23:00 12/06/19 23:12 Duragesic TD 150 mcg Q3D ODILON Administration Gabapentin 600 mg 12/02/19 21:00 12/06/19 22:00 Neurontin PO Not Given TID ODILON Hydrocortisone Acetate 25 mg 12/03/19 13:53 12/03/19 21:35 Anusol-Hc TX 25 mg BIDPRN PRN Administration Hemorrhoids Hydrocortisone/Pramoxine 1 gm 12/05/19 11:02 12/05/19 13:27 Analpram Hc TX 12/15/19 11:02 1 applic TID PRN Administration Topical Anesthetic Cefepime HCl 2 gm/ Sodium 100 mls @ 200 mls/hr 12/02/19 13:00 12/07/19 00:43 Chloride IVPB 100 mls 0100,1300 ODILON Administration Fluconazole/Sodium Chloride 100 mls @ 100 mls/hr 12/02/19 14:00 12/06/19 16: 36 200 mg/ Device IVPB 100 mls 1400 ODILON Administration Vancomycin HCl 2 gm/ Sodium 500 mls @ 250 mls/hr 12/06/19 23:00 12/06/19 22: 03 Chloride IVPB 500 mls 1100,2300 ODILON Administration Potassium Phosphate 30 mmol/ 510 mls @ 83.3 mls/hr 12/07/19 05:45 12/07/19 06 :15 Sodium Chloride IVPB 12/07/19 11:53 510 mls NOW ODILON Administration Levalbuterol HCl 0.63 mg 12/04/19 15:11 12/06/19 22:18 Xopenex NEB 0.63 mg [id number] ODILON Administration Lorazepam 1 mg 12/06/19 00:49 12/06/19 15:38 Ativan SLOW IVP 1 mg HSPRN PRN Administration Insomnia Lorazepam 0.5 mg 12/07/19 00:08 12/07/19 04:22 Ativan SLOW IVP 12/08/19 04:00 0.5 mg Q2H PRN Administration Anxiety/Agitation Magnesium Hydroxide 30 ml 12/02/19 18:33 12/02/19 18:51 Milk Of Magnesium PO 30 ml DAILYPRN PRN Administration Constipation Mineral Oil/White Petrolatum 0 gm 12/04/19 14:04 12/04/19 14:49 Aquaphor 99 Gm TOP 1 applic PRN PRN Administration SKIN Miscellaneous Medication 0 gm 12/03/19 20:54 12/03/19 21:37 Preparation H Ointment TOP 1 appful TIDPRN PRN Administration Hemorrhoids Morphine Sulfate 4 mg 12/02/19 18:29 12/07/19 04:22 Morphine SLOW IVP 4 mg Q4H PRN Administration Pain Oxymetazoline HCl 0 ml 12/05/19 23:52 12/06/19 11:51 Nasal Decongestant NS 12/08/19 23:53 30 ml Q6H PRN Administration Allergies Pantoprazole Sodium 40 mg 12/06/19 09:00 12/06/19 09:55 Protonix IVP 40 mg DAILY ODILON Administration Saccharomyces Boulardii 250 mg 12/03/19 09:00 12/06/19 08:30 Florastor PO Not Given DAILY ODILON Sodium Chloride 10 ml 12/02/19 09:00 12/06/19 20:34 Flush - Normal Saline IVF 10 ml Q12HR ODILON Administration Sodium Chloride 10 ml 12/05/19 20:22 12/06/19 11:40 Normal Saline Pf FS 10 ml PRN PRN Administration RECONSTITUTION - Exam Eye: PERRL, scleral icterus Heart: no murmur, no gallops Respiratory: CTAB Gastrointestinal: soft, non-distended, normal bowel sounds Extremities: no cyanosis Hosp A/P (1) Mucositis (ulcerative) due to antineoplastic therapy Code(s): K12.31 - ORAL MUCOSITIS (ULCERATIVE) DUE TO ANTINEOPLASTIC THERAPY Status: Acute (2) Neutropenic fever Code(s): D70.9 - NEUTROPENIA, UNSPECIFIED; R50.81 - FEVER PRESENTING WITH CONDITIONS CLASSIFIED ELSEWHERE Status: Acute (3) Hypertension Code(s): I10 - ESSENTIAL (PRIMARY) HYPERTENSION Status: Acute Qualifiers: Hypertension type: essential hypertension Qualified Code(s): I10 - Essential (primary) hypertension (4) Stage IV carcinoma of breast Code(s): C50.919 - MALIGNANT NEOPLASM OF UNSP SITE OF UNSPECIFIED FEMALE BREAST Status: Chronic - Plan * Acute on chronic respiratory failure- will move her to the ICU- discussed with Dr. Castelan * She may need the pleural effusion on the right tapped * Neutropenic fever- she continues to have some low grade fever- will consult ID to help with antibiotic choice * Hemorrhoidal bleeding and pain- continue symptomatic management * HTN- blood pressure is stable * Hypokalemia - better -continue to replace
[2019-12-07] MEDS: Ascorbic Acid 500 mg Chewable Tablet PO SCH (08:40)
[2019-12-07] MEDS: Pantoprazole 40 MG VIAL IVP SCH (08:40)
[2019-12-07] MEDS: Saccharomyces boulardii 250 MG CAP PO SCH (08:40)
[2019-12-07] MEDS: Gabapentin 300 MG CAP PO SCH ×3 (08:40→21:18)
[2019-12-07 08:52] LABS: Actual Bicarbonate (HCO3a) 24.7 mEq/L (22-28); Base Excess (BEa) 1.7 mEq/L (-2.0 to +3.0); CO2 Tension 31.8 mmHg (35.0-45.0); Calcium, Ionized 1.01 mmol/L (1.12-1.30); Carboxyhemoglobin (COHb) 1.4 gm% (0.0-3.0); Hemoglobin (Hb) 7.8 g/dL (12.0-16.0); Potassium - ABG Lab 3.47 mmol/L (3.70-5.30); pH, Arterial 7.51 (7.35-7.45)
[2019-12-07 08:53] LABS: O2 Tension (PaO2), arterial 50.6 mmHg (80.0-100.0)
[2019-12-07 08:54] LABS: Puncture Site LRA
[2019-12-07] MEDS: Levalbuterol HCl 0.63 MG/3 ML NEB NEB SCH ×3 (08:56→23:15)
[2019-12-07 10:18] LABS: Vancomycin, Trough 14.1 ug/mL
[2019-12-07] MEDS: Acetaminophen 650 MG/20.3 ML UDCUP PO PRN (10:24)
[2019-12-07] MEDS ORDERED: Vancomycin 1 GM in Premix Bag 1 BAG IVPB SCH ×2 (10:30→18:00)
[2019-12-07] MEDS ORDERED: Vancomycin HCl 500 MG in Sodium Chloride 0.9% 100 ML IVPB SCH (11:30)
--- NOTE | 2019-12-07 14:00 | PRG ---
DATE OF SERVICE: 12/07/2019 SUBJECTIVE: Ms. Guallpa spiked fever up to 101 last night and this morning, but she was quite short of breath and became hypoxic. She was transferred to the ICU. Thoracentesis was performed with 1 L of fluid removed. Her saturations have come up nicely. With Tylenol, her fever has decreased. She is feeling quite a bit better with less shortness of breath. She was having diarrhea for most of the day yesterday, but this stopped last night, and she has not had any bowel movements today, so C difficile sample has not been collected. She is not having any abdominal pain. She is tolerating her diet, had some Ensure not long ago. OBJECTIVE: VITAL SIGNS: Currently, blood pressure 89/58, pulse 118, temperature 99.5, and 100% oxygen saturation on room air. GENERAL: Sitting up in bed, in no acute distress. HEART: Regular, tachycardia. LUNGS: Diminished breath sounds at the bases. No respiratory distress. No wheezing. ABDOMEN: Bowel sounds are present. Soft, nontender to palpation. EXTREMITIES: No peripheral edema. LABORATORY STUDIES: WBC up to 5.8, hemoglobin up to 10.1, platelets declined to 48. Sodium 137, potassium 3.4, BUN 6, creatinine 0.49. LFTs all stable with total bilirubin 4.0, alkaline phosphatase 959, AST 133, ALT 24, and albumin 2.1. Stool C difficile is ordered, but not yet been collected. ASSESSMENT AND PLAN: 1. Severe mucositis, improved. 2. Fever, neutropenia, now resolved. The patient receiving antibiotics. 3. Diarrhea. Clostridium difficile was ordered yesterday. Diarrhea appears to have slowed down today, but certainly given her recent fever and immunosuppression, she is at risk for Clostridium difficile. Collect stool for Clostridium difficile assay when available. 4. Pleural effusion, status post 1 L thoracentesis earlier today. Hypoxia has resolved. Job ID: [id number]
--- NOTE | 2019-12-07 14:20 | RAD ---
Chest 1 view: HISTORY: Shortness of breath, effusion. COMPARISON: 12/06/2019. FINDINGS: Persistent parenchymal changes in the right lung and left lung. There appears to be decreased right pleural effusion with some persistent left-sided pleural effusion, particularly in the costophrenic a ngle region. IMPRESSION: Evidence for decreased right pleural effusion. Stable bilateral patchy parenchymal changes and left pleural effusion. Continued short-term followup. POS: [facility]
[2019-12-07] MEDS: Fluconazole In NaCl,Iso-Osm 200 MG in Premix Bag 1 BAG IVPB SCH (14:25)
--- NOTE | 2019-12-07 14:31 | PDOC.MOPN ---
Interval History: events noted, patient moved to ICU for worsening SOB and hypoxia. 1L removed from right pleural space. - Vital Signs Vital Signs: Vital Signs (12 hours) Temp Pulse Resp BP Pulse Ox 12/07/19 12:00 99.5 F 12/07/19 10:53 97 12/07/19 08:00 88 L 12/07/19 04:00 93 L 12/07/19 03:59 99.7 F H 137 H 20 120/57 L 93 L Weight Admit Weight 143 lb 6.4 oz Weight 143 lb 6.4 oz Most Recent Monitor Data Heart Rate from ECG 118 NIBP 89/58 NIBP BP-Mean 68 Respiration from ECG 18 SpO2 100 - Physical Exam General: Mild distress Lungs: Other Cardiovascular: Other (tachy) Extremities: Other (2+ edema all extremities) - Labs Result Diagrams: 12/07/19 04:20 12/07/19 04:20 Lab results: Laboratory Results - last 24 hr 12/07/19 09:15: Vancomycin Trough 14.1 12/07/19 08:29: Specimen Type ARTERIAL, Puncture Site LRA, Bicarbonate Actual 24.7, ABG pH 7.51 H, ABG pCO2 31.8 L, ABG pO2 50.6 L*, ABG O2 Sat Calc/Ramiro 85.5 L*, ABG O2 Content 9.3 L, ABG Base Excess 1.7, ABG Hematocrit 23.0 L, ABG Hemoglobin 7.8 L, ABG Oxyhemoglobin 84.0 L, ABG Carboxyhemoglobin 1.4, ABG Methemoglobin 0.30, ABG Deoxyhemoglobin 14.3 H, Wilfrido Test POSITIVE, A-a O2 Gradient 194.850 H, Ionized Calcium 1.01 L, Mode of Support 5L NC, Inspired O2 40, Sodium 135, Potassium 3.47 L, Chloride 103 12/07/19 04:20: WBC 5.8, RBC 3.29 L, Hgb 10.1 L, Hct 33.0 L, MCV 101.0 H, MCH 30.7, MCHC 30.5 L, RDW 23.8 H, Plt Count 48 L, MPV 6.8 L, Neutrophils % (Manual ) 38 L, Band Neuts % (Manual) 33 H, Lymphocytes % (Manual) 11 L, Monocytes % ( Manual) 14 H, Metamyelocytes % (Man) 1 H, Myelocytes % 3 H, Nucleated RBCs # ( Man) 7 H, Plt Morphology Comment Appears Decreased L, Anisocytosis MODERATE=16- 30 cells H 12/07/19 04:20: Sodium 137, Potassium 3.4 L, Chloride 103, Carbon Dioxide 27, Anion Gap 10, BUN 6 L, Creatinine 0.49 L, Estimated GFR (MDRD) Greater than 90 , Glucose 111 H, Calcium 7.5 L, Phosphorus 1.3 L, Magnesium 2.2, Total Bilirubin 4.0 H, AST 133 H, ALT 24, Alkaline Phosphatase 959 H, Serum Total Protein 5.6 L, Albumin 2.1 L, Globulin 3.5, Albumin/Globulin Ratio 0.6 L Status: lab reviewed by me A/P - Problem (1) Elevated LFTs Current Visit: Yes Code(s): R79.89 - OTHER SPECIFIED ABNORMAL FINDINGS OF BLOOD CHEMISTRY Status: Acute (2) Mucositis (ulcerative) due to antineoplastic therapy Current Visit: Yes Code(s): K12.31 - ORAL MUCOSITIS (ULCERATIVE) DUE TO ANTINEOPLASTIC THERAPY Status: Acute (3) Breast cancer Current Visit: No Status: Acute (4) Malnutrition Current Visit: Yes Code(s): E46 - UNSPECIFIED PROTEIN-CALORIE MALNUTRITION Status: Acute (5) Acute respiratory failure Current Visit: No Code(s): J96.00 - ACUTE RESPIRATORY FAILURE, UNSP W HYPOXIA OR HYPERCAPNIA Status: Acute (6) Liver metastases Current Visit: No Code(s): C78.7 - SECONDARY MALIG NEOPLASM OF LIVER AND INTRAHEPATIC BILE DUCT Status: Acute - Plan Plan: Patient's liver enzymes are elevated but stable Thoracentesis today with improved breathing Remains tachycardic Poor appetite Patient has poor prognosis and may not survive this admission. She remains a full code per her family wishes.
[2019-12-07] MEDS: Micafungin 100 MG in Sodium Chloride 0.9% 100 ML IVPB SCH (15:59)
--- NOTE | 2019-12-07 16:34 | CON ---
DATE OF CONSULTATION: 12/07/2019 REASON FOR CONSULTATION: Persistence of fever in the setting of neutropenia. HISTORY OF PRESENT ILLNESS: A 39-year-old who is known to us from prior visit and has a history of breast cancer metastatic to bones, liver, and lungs with multiple prior interventions. She has now been identified with pleural involvement as well, and has a PleurX catheter placed on the left side. She also has had progression of the liver disease, and has been switched to [place], which is a macrocyclic ketone analog of an actual product and has both cytotoxic and non-cytotoxic activity. She was admitted because of the complication. Temperature initially was 103. She has chronic dyspnea and hypoxemia on nasal cannula oxygen supplementation in the home setting. She also had difficulty swallowing with multiple mouth sores. Initial findings included temperature 98.7, pulse 110, respirations 18, and O2 saturation 97% on 2 L nasal cannula. She appeared alert and awake, but chronically ill. There was reduction of lung sounds in the left side and bases. Other findings included the PleurX catheter and a port in the left subclavian position. Chest x-ray showed opacification in particular on the right side, though this is mostly because of the right breast prosthesis. There was a subpulmonic effusion on the right and small left effusion with left basilar infiltrate. The patient was given vancomycin and cefepime. She has been started on Diflucan as well. Currently, she is feeling somewhat better. No headaches. No visual symptoms, sore throat, odynophagia, or dysphagia. The mouth sores have improved quite significantly. Denies any back pain. She does have pain in the lower extremities, particularly in the knees and ankles. She has [id number] abdominal pain. She is voiding without difficulty and has had some diarrhea intermittently. PAST MEDICAL HISTORY: Breast cancer, metastatic to bone, liver, and lungs, with multiple interventions; mastectomy of left side, radiation therapy, various agents for chemotherapy. Now, she has had progression to liver and pleural space, has had a PleurX catheter inserted. ALLERGIES: NONE. CURRENT MEDICATIONS: 1. Cefepime. 2. Vancomycin. 3. [place]. 4. Xanax. 5. Clinimix. 6. Vitamin C. 7. Tessalon. 8. Tums. 9. Cardizem. 10. Duragesic. 11. Robitussin. 12. Hydrocortisone. 13. Pramoxine. 14. Atrovent. 15. Xopenex. 16. EMLA. 17. Ondansetron. 18. Florastor. 19. Vancomycin. PHYSICAL EXAMINATION: VITAL SIGNS: T-max 102.3 on admission and now she is 101.8. GENERAL: A PleurX catheter in the left side, subclavian port, voiding spontaneously, bedside commode. Appears chronically ill, but not in acute distress, on O2 supplementation via nasal cannula. HEENT: Ocular movements conjugate. Mild jaundice. Pupils are 2 mm and reactive. Oral cavity with 2 or 3 pustules in the mouth with no thrush. NECK: Supple. No jugular vein distention. LUNGS: Diminished breath sounds at bases. Egophony on the left side. No wheezing. No crackles. HEART: S1 and S2. Regular rate. No S3 or S4. ABDOMEN: Moderately distended. Hepatomegaly is noted. No splenomegaly. No bladder distention. EXTREMITIES: No joint inflammatory activity. No edema. Pulses are 1+ in dorsalis pedis. Moves extremities equally. NEUROLOGIC: Follows commands. Oriented. LABORATORY STUDIES: White cell count was 0.6 and is up to 2.3, hemoglobin 7.1, MCV 101, platelets 84, 26% bands, 55% lymphocytes. Now, we have a total white cell count of 5.8, hemoglobin 10, platelets 48,000 with 38% neutrophils, 33% bands, 11% lymphocytes, and total neutrophil count is about 3000. A pH of 7.5, pCO2 of 31, and PO2 of 50. Sodium 137 and creatinine 0.49. Phosphorus 1.3. AST 133, ALT 24, and alkaline phosphatase 959. Urinalysis was not particularly remarkable. Blood cultures with 2 sets, negative for 48 hours. Urine culture, no growth at 48 hours as well. Followup chest x-ray from this morning, parenchymal changes in the right and left sides, decreased right pleural effusion, persistent left-sided pleural effusion. ASSESSMENT: 1. Metastatic breast cancer, having failed numerous interventions, now on Hal[place]. 2. Neutropenia and fever secondary to the cytotoxic effects of the medication. 3. 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 4. Persistence of fever despite broad-spectrum antimicrobial coverage. DISCUSSION: The differential diagnosis includes of a superimposed fungal infection, Helen, and Aspergillus versus noninfectious cause of persistence of fever, such as thromboembolism, tumor, or fever. We will add micafungin. Discontinue Diflucan. Check Fungitell assay in blood. Depending on clinical progress, may need thromboembolism workup. Last chest CT angio was on August and was negative for pulmonary thromboembolism. Job ID: [id number]
[2019-12-07] MEDS: Acyclovir Sodium 260 MG in Sodium Chloride 0.9% 100 ML IVPB SCH (16:58)
--- NOTE | 2019-12-07 17:37 | CON ---
DATE OF CONSULTATION: 12/07/2019 HISTORY OF PRESENT ILLNESS: Ms. Guallpa is a very pleasant 39-year-old female with stage IV breast cancer. She is transferred to critical care unit for shortness of breath. Chest radiograph showed a right pleural effusion. She has a tunneled catheter on the left. PAST MEDICAL HISTORY: Remarkable for: 1. A long period of time with breast cancer, receiving multiple rounds of chemotherapy. 2. History of metastatic bone disease. 3. History of extensive metastatic liver disease. 4. History of placement of a tunneled catheter on the left for intermittent drainage. I believe she was drained by Kylehope, the patient's brother, 2 days ago with 500 mL drained out of her left chest. FAMILY HISTORY: Negative for lung disease in early age. REVIEW OF SYSTEMS: Otherwise negative. Her only complaint is shortness of breath. PHYSICAL EXAMINATION: VITAL SIGNS: She had a low-grade temperature of 99, heart rate was 140 this morning, blood pressure 103/58, and respiratory rate was in the 30s. HEAD AND NECK: Unchanged from the last visit with her. LUNGS: Remarkable for decreased breath sounds at the right base. HEART: Regular rhythm. ABDOMEN: Soft and distended secondary to her significant hepatomegaly. EXTREMITIES: Without asymmetry. LABORATORY DATA: White count 5.8, hemoglobin 10.1, and platelets 48,000. Creatinine is 0.49 and potassium is 3.4. Liver enzymes are elevated. Bilirubin is 4.0. IMPRESSION: Dyspnea secondary to recurrent pleural effusion. PLAN: Recommended thoracentesis. Risks of bleeding, infection, and lung collapse were explained. The patient has had a tap by me recently and probably would benefit from a tunneled catheter since this will likely require frequent drainage for symptoms that are recurrent. This is a 50-minute consult, 50% of the time was spent on coordinating care excluding procedure. Job ID: [id number] [facility]
[2019-12-07] MEDS: Vancomycin 1.5 GRAM/300 ML BAG 1.5 GM in Premix Bag 1 BAG IVPB SCH (18:17)
--- NOTE | 2019-12-07 20:17 | EKG ---
Test Reason : Blood Pressure : / mmHG Vent. Rate : 145 BPM Atrial Rate : 147 BPM P-R Int : 000 ms QRS Dur : 062 ms QT Int : 338 ms P-R-T Axes : 000 036 034 degrees QTc Int : 525 ms Supraventricular tachycardia Abnormal ECG When compared with ECG of 23-SEP-2019 07:48, No significant change was found Confirmed by DR. Amilcar PITTS MD (4) on 12/07/2019 8:17:14 PM Referred By: LEXA Confirmed By:DR. Amilcar PITTS MD
[2019-12-07] MEDS: Guaifenesin DM 100-10/5 ML UDCUP PO PRN (22:51)
[2019-12-08] MEDS: Benzonatate 100 MG CAP PO PRN ×4 (00:03→20:11)
[2019-12-08] MEDS: Acyclovir Sodium 260 MG in Sodium Chloride 0.9% 100 ML IVPB SCH ×3 (00:03→17:42)
[2019-12-08] MEDS: Acetaminophen 650 MG/20.3 ML UDCUP PO PRN ×3 (00:03→17:42)
[2019-12-08] MEDS: Vancomycin 1.5 GRAM/300 ML BAG 1.5 GM in Premix Bag 1 BAG IVPB SCH ×2 (01:18→10:13)
[2019-12-08] MEDS: Cefepime 2 GM in Sodium Chloride 0.9% 100 ML IVPB SCH ×2 (03:03→11:53)
[2019-12-08] MEDS: Morphine 4 MG/ML VIAL SLOW IVP PRN ×3 (04:49→14:14)
[2019-12-08] MEDS: Aluminum & Magnesium Hydroxide 60 ML, Lidocaine 2% Viscous Solution 30 ML, diphenhydrAM... SSW SCH ×4 (05:47→23:04)
--- NOTE | 2019-12-08 06:16 | OP ---
DATE OF PROCEDURE: 12/07/2019 PROCEDURE PERFORMED: Thoracentesis. DESCRIPTION OF PROCEDURE: Right posterior hemithorax was prepped with chlorhexidine. 10 mL of 1% lidocaine was used to anesthetize the skin and the pleura. A small incision was made with a #11 blade. An 8-Yi catheter was inserted in to the pleural space. 1 L of serosanguineous fluid was evacuated from the right chest. She had dramatic and symptomatic improvement of her dyspnea after the procedure. There is no clinical indication of pneumothorax. Chest x-ray postprocedure shows significant improvement of aeration of the right lung. She has haziness in the right chest, most likely secondary to her prior breast surgery. I suspect the haziness is all extrathoracic. Job ID: [id number]
[2019-12-08 06:26] LABS: ALT (SGPT) 23 U/L (8-55); AST (SGOT) 118 U/L (5-34); Albumin 2.1 g/dL (3.5-5.0); Alkaline Phosphatase 901 U/L (40-110); Anion Gap 10 mmol/L (10-20); BUN (Urea Nitrogen) 7 mg/dL (7.0-18.7); Bilirubin, Total 4.2 mg/dL (0.2-1.2); Calc. Creatinine Clearance 148 mL/min (70-130); Calcium 7.1 mg/dL (7.8-10.44); Carbon Dioxide 26 mmol/L (22-29); Chloride 103 mmol/L (98-107); Estimated GFR-MDRD Greater than 90; Globulin 3.3 g/dL (2.4-3.5); Glucose 112 mg/dL (70-105); Potassium 3.3 mmol/L (3.5-5.1); Protein, Total 5.4 g/dL (6.0-8.3); Sodium 136 mmol/L (136-145)
[2019-12-08 06:36] LABS: Phosphorus 1.3 mg/dL (2.3-4.7)
[2019-12-08 07:26] LABS: Hemoglobin 6.2 g/dL (12.0-16.0); Mean Corpuscular HGB CONC 31.8 g/dL (32.0-36.0); Mean Corpuscular Hemoglobin 31.9 pg (27.0-31.0); Mean Platelet Volume 7.6 fL (7.4-10.4); Platelet Count 49 thou/uL (130-400); Red Blood Cell (RBC) Count 1.95 mill/uL (4.20-5.40); White Blood Cell (WBC) Count 7.7 thou/uL (4.8-10.8)
[2019-12-08] MEDS ORDERED: Potassium Phosphate 15 MMOL in Sodium Chloride 0.9% 250 ML 250 ML IVPB SCH (07:45)
[2019-12-08] MEDS: Levalbuterol HCl 0.63 MG/3 ML NEB NEB SCH ×3 (07:50→23:53)
[2019-12-08] MEDS: Saccharomyces boulardii 250 MG CAP PO SCH ×2 (08:17→09:45)
[2019-12-08] MEDS: Gabapentin 300 MG CAP PO SCH ×4 (08:17→20:15)
[2019-12-08] MEDS: Ascorbic Acid 500 mg Chewable Tablet PO SCH ×2 (08:18→09:45)
[2019-12-08] MEDS: Pantoprazole 40 MG VIAL IVP SCH (08:18)
[2019-12-08 08:23] LABS: Anisocytosis MODERATE=16-30 cells (100X) (0-5/hpf); Band 31 % (5-11); Hypochromia SLIGHT = 6-15 cells (100X) (0-5/hpf); Lymphocytes 10 % (21-51); MDiff Complete? YES; Metamyelocyte 2 % (0-0); Monocytes 13 % (0-10); Neutrophil 44 % (42-75); Nucleated RBC 6 % (0); Platelet Morphology Comment Appears Decreased; Polychromasia MODERATE = 3-4 cells (100X) (0-2/hpf); Schistocytes SLIGHT = 2-5 cells (100X) (0-1/hpf); Tear Drops SLIGHT = 2-5 cells (100X) (0-1/hpf)
[2019-12-08] MEDS: Bisacodyl 10 MG SUPP PR PRN ×2 (08:38→20:15)
--- NOTE | 2019-12-08 08:48 | PRG ---
DATE OF SERVICE: 12/08/2019 SUBJECTIVE: Melissa Guallpa is in no distress. OBJECTIVE: VITAL SIGNS: She had a temperature spiked to 100.8 at midnight. GENERAL: She is in no distress. LUNGS: She has clear breath sounds at the right base now. She has tubular breath sounds at her left base suggestive of perhaps some compressive atelectasis by effusion. HEART: Resting tachycardia at sinus rhythm by monitor. ABDOMEN: Soft and nontender. EXTREMITIES: Without asymmetry. LABORATORY DATA: White count 7.7, hemoglobin 6.2, and platelets 49,000. Transfusion has been ordered. Sodium 136, potassium 3.3, chloride 103, bicarb 26, BUN 7, and creatinine 0.53. IMPRESSION AND PLAN: Breast cancer status post thoracentesis of a malignant effusion on the right yesterday. She is clinically markedly improved. Continue supportive care. Job ID: [id number]
[2019-12-08] MEDS ORDERED: Promethazine HCl 25 MG in Sodium Chloride 0.9% 50 ML IVPB PRN (08:58)
[2019-12-08] MEDS ORDERED: Promethazine HCl 6.25 MG/5 ML Syrup PO PRN (08:58)
[2019-12-08] MEDS ORDERED: Simethicone Chewable 80 MG TAB PO PRN (09:04)
--- NOTE | 2019-12-08 09:07 | PDOC.HOSPP ---
- Subjective Encounter Date: 12/08/19 Encounter Time: 09:04 Subjective: Ms. Guallpa was seen today in follow-up of neutropenic fever, and severe mucositis. She says she is feeling very weak, she also notes feeling abdominal bloating. - Objective Vital Signs & Weight: Vital Signs (12 hours) Temp Pulse Resp Pulse Ox 12/08/19 07:52 99.4 F 12/08/19 07:50 127 H 25 H 96 12/08/19 07:41 99.5 F 12/08/19 07:00 99.5 F 12/08/19 04:00 98.1 F 12/08/19 00:00 100.8 F H 12/07/19 23:15 134 H 26 H 100 Weight Admit Weight 143 lb 6.4 oz Weight 143 lb 6.4 oz Most Recent Monitor Data Heart Rate from ECG 129 NIBP 113/66 NIBP BP-Mean 81 Respiration from ECG 51 SpO2 93 I&O: 12/07/19 12/08/19 12/09/19 06:59 06:59 06:59 Intake Total 1707 3671 50 Output Total 200 2800 135 Balance 1507 871 -85 Result Diagrams: 12/08/19 06:45 12/08/19 05:45 Hospitalist ROS - Medication Medications: Active Medications Generic Name Dose Route Start Last Admin Trade Name Freq PRN Reason Stop Dose Admin Acetaminophen 650 mg 12/02/19 19:15 12/08/19 00:03 Tylenol Elixir PO 650 mg Q4H PRN Administration Headache/Fever or Pain (1-3) Amino Acids/Electrolytes/Dextrose 1,000 ml 12/03/19 14:00 12/06/19 15:25 Clinimix E 4.25/5 IV 1,000 ml INF ODILON Administration Ascorbic Acid 1,000 mg 12/03/19 09:00 12/08/19 08:18 Vitamin C PO 1,000 mg DAILY ODILON Administration Benzonatate 100 mg 12/06/19 23:19 12/08/19 03:54 Tessalon PO 100 mg Q4H PRN Administration Cough Bisacodyl 10 mg 12/02/19 18:33 12/08/19 08:38 Dulcolax ME 10 mg DAILYPRN PRN Administration Constipation Calcium Carbonate 1,000 mg 12/02/19 11:58 12/02/19 18:50 Tums PO 1,000 mg Q4H PRN Administration Heartburn or Indigestion Cholecalciferol 5,000 units 12/02/19 16:00 12/06/19 16:45 Vitamin D3 PO Not Given Q2DAYS ODILON Al Hydroxide/Mg Hydroxide 60 0 ml 12/03/19 18:00 12/08/19 05:47 ml/ Lidocaine HCl 30 ml/ SSW Not Given Diphenhydramine HCl 75 mg Q6HR ODILON Fentanyl 150 mcg 12/06/19 23:00 12/06/19 23:12 Duragesic TD 150 mcg Q3D ODILON Administration Gabapentin 600 mg 12/02/19 21:00 12/08/19 08:17 Neurontin PO 600 mg TID ODILON Administration Guaifenesin/Dextromethorphan 15 ml 12/02/19 11:58 12/07/19 22:51 Robitussin Dm PO 15 ml Q4H PRN Administration Cough Hydrocortisone Acetate 25 mg 12/03/19 13:53 12/03/19 21:35 Anusol-Hc ME 25 mg BIDPRN PRN Administration Hemorrhoids Hydrocortisone/Pramoxine 1 gm 12/05/19 11:02 12/05/19 13:27 Analpram Hc ME 12/15/19 11:02 1 applic TID PRN Administration Topical Anesthetic Vancomycin HCl 1.5 gm/ Device 300 mls @ 200 mls/hr 12/07/19 18:00 12/08/19 01 :18 IVPB 300 mls 0200,1000,1800 ODILON Administration Cefepime HCl 2 gm/ Sodium 100 mls @ 200 mls/hr 12/07/19 11:00 12/08/19 03:03 Chloride IVPB 100 mls 0300,1100,1900 ODILON Administration Micafungin Sodium 100 mg/ 100 mls @ 100 mls/hr 12/07/19 16:00 12/07/19 15:59 Sodium Chloride IVPB 100 mls Q24H ODILON Administration Acyclovir Sodium 260 mg/ 105.2 mls @ 105.2 mls/hr 12/07/19 17:00 12/08/19 08: 17 Sodium Chloride IVPB 105.2 mls Q8H ODILON Administration Potassium Phosphate 15 mmol/ 255 mls @ 62.5 mls/hr 12/08/19 07:45 12/08/19 08 :18 Sodium Chloride IVPB 12/08/19 10:00 255 mls NOW ODILON Administration Levalbuterol HCl 0.63 mg 12/04/19 15:11 12/08/19 07:50 Xopenex NEB 0.63 mg [id number] ODILON Administration Lorazepam 1 mg 12/06/19 00:49 12/06/19 15:38 Ativan SLOW IVP 1 mg HSPRN PRN Administration Insomnia Magnesium Hydroxide 30 ml 12/02/19 18:33 12/02/19 18:51 Milk Of Magnesium PO 30 ml DAILYPRN PRN Administration Constipation Mineral Oil/White Petrolatum 0 gm 12/04/19 14:04 12/04/19 14:49 Aquaphor 99 Gm TOP 1 applic PRN PRN Administration SKIN Miscellaneous Medication 0 gm 12/03/19 20:54 12/03/19 21:37 Preparation H Ointment TOP 1 appful TIDPRN PRN Administration Hemorrhoids Morphine Sulfate 4 mg 12/02/19 18:29 12/08/19 04:49 Morphine SLOW IVP 4 mg Q4H PRN Administration Pain Oxymetazoline HCl 0 ml 12/05/19 23:52 12/06/19 11:51 Nasal Decongestant NS 12/08/19 23:53 30 ml Q6H PRN Administration Allergies Pantoprazole Sodium 40 mg 12/06/19 09:00 12/08/19 08:18 Protonix IVP 40 mg DAILY ODILON Administration Saccharomyces Boulardii 250 mg 12/03/19 09:00 12/08/19 08:17 Florastor PO 250 mg DAILY ODILON Administration Sodium Chloride 10 ml 12/02/19 09:00 12/08/19 08:18 Flush - Normal Saline IVF 10 ml Q12HR ODILON Administration Sodium Chloride 10 ml 12/05/19 20:22 12/06/19 11:40 Normal Saline Pf FS 10 ml PRN PRN Administration RECONSTITUTION - Exam Eye: PERRL, scleral icterus Heart: RRR, no murmur, no gallops, no rubs, normal peripheral pulses (+ rales at the bases, and occasional rhonchi) Respiratory: no wheezes Gastrointestinal: soft, non-tender, non-distended, normal bowel sounds, no palpable masses, no hepatomegaly Extremities: no cyanosis, no clubbing, no edema Hosp A/P (1) Mucositis (ulcerative) due to antineoplastic therapy Code(s): K12.31 - ORAL MUCOSITIS (ULCERATIVE) DUE TO ANTINEOPLASTIC THERAPY Status: Acute (2) Neutropenic fever Code(s): D70.9 - NEUTROPENIA, UNSPECIFIED; R50.81 - FEVER PRESENTING WITH CONDITIONS CLASSIFIED ELSEWHERE Status: Acute (3) Hypertension Code(s): I10 - ESSENTIAL (PRIMARY) HYPERTENSION Status: Acute Qualifiers: Hypertension type: essential hypertension Qualified Code(s): I10 - Essential (primary) hypertension (4) Stage IV carcinoma of breast Code(s): C50.919 - MALIGNANT NEOPLASM OF UNSP SITE OF UNSPECIFIED FEMALE BREAST Status: Chronic - Plan * Acute on chronic respiratory failure- due to malignant pleural effusion on the right. She is breathing better after the thorocentesis. She has a pleurX catheter on the left. * Neutropenic fever- ID recommendations appreciated- Diflucan was discontinued, and she has been started on Acyclovir, and Micafungin * Abdominal bloating- continue symptom management- will add Simethicon,and treat constipation * Severe anemia- likely related to chemotherapy- transfuse as needed * Liver function tests have vijay stable * HTN- blood pressure is stable * Hypokalemia and Hypophosphatemia- continue to replace
[2019-12-08 10:00] LABS: Vancomycin, Trough 23.3 ug/mL
[2019-12-08] MEDS: Vancomycin 1 GM in Premix Bag 1 BAG IVPB SCH ×2 (10:17→18:23)
[2019-12-08] MEDS: Lorazepam 2 MG/ML VIAL SLOW IVP PRN (11:01)
[2019-12-08] MEDS ORDERED: Lorazepam 2 MG/ML VIAL SLOW IVP PRN (11:19)
--- NOTE | 2019-12-08 13:54 | RAD ---
SINGLE VIEW OF THE CHEST: 12/08/19 COMPARISON: 12/07/19. HISTORY: Fluid overload. FINDINGS: Single view of the chest shows a normal sized cardiomediastinal silhouette. The Mediport is unchanged in position. An area of air space opacity is again seen projecting over the right peripheral lung. T here may also be an infiltrate in the left lower lobe. IMPRESSION: Stable exam. POS: LILIANEA
[2019-12-08] MEDS ORDERED: Furosemide 40 MG/4 ML VIAL SLOW IVP SCH (15:15)
[2019-12-08] MEDS: Micafungin 100 MG in Sodium Chloride 0.9% 100 ML IVPB SCH (15:42)
--- NOTE | 2019-12-08 16:48 | PRG ---
DATE OF SERVICE: 12/08/2019 SUBJECTIVE: Not doing very well, having difficulty with dyspnea, tachypnea, and tachycardia. Diuresis is being attempted. She had some decrease in hemoglobin and GI was consulted. They have ordered a CT of abdomen. OBJECTIVE: VITAL SIGNS: Still having fevers of 101 max temperature, blood pressure 140/100, respiratory rate 28, O2 saturations 89% on 2 L nasal cannula and 98% with a Venturi mask. GENERAL: Appears in some moderate distress. Awake and oriented. LUNGS: Faint inspiratory crackles at the bases, right and left side consistent with pulmonary edema. HEART: S1 and S2. Tachycardia. ABDOMEN: Distended and moderately tender, particularly in the right side. Some ascites noted. EXTREMITIES: No edema in lower extremities. She is able to move extremities equally. LABORATORY DATA: White cell count is up to 7.7, hemoglobin 6.2, and platelets 49,000. Creatinine 0.53. Cultures, no growth thus far. C diff in stool was negative. Currently, she is on acyclovir, micafungin, cefepime, and vancomycin. ASSESSMENT AND DISCUSSION: Metastatic breast cancer, liver, lungs, pleural space, and bone, neutropenic fever with chemotherapy, persistence of fever despite broad-spectrum coverage with addition of antifungal and antiviral coverage, worsening dyspnea, and hypoxemia. Differential diagnosis includes volume overload, effects of the malignancy, as well as possibility of thromboembolism that could be including malignant cells as well as clot. We will switch her to Merrem from cefepime. Continue remainder of drugs. Job ID: [id number]
[2019-12-08] MEDS: Guaifenesin DM 100-10/5 ML UDCUP PO PRN ×2 (17:42→23:20)
[2019-12-08] MEDS: Simethicone Chewable 80 MG TAB PO SCH (20:14)
--- NOTE | 2019-12-08 20:27 | PRG ---
DATE OF SERVICE: 12/08/2019 SUBJECTIVE: Overnight, the patient did continue to spike fevers with approximately 100.8 temperature. She did continue to have fevers during the course of the day today as well. She did have the removal of approximately 1 L of fluid via thoracentesis from her right pleural space approximately 24 hours ago and has been breathing better since that happened. However, she is now complaining of increased abdominal distention (no increased abdominal pain) that she feels is also contributing to shortness of breath. She continues to have moderate size liquid bowel movements with a stool sample collected for C diff that was subsequently negative. Currently, she denies any nausea, vomiting, GI bleeding, or constipation. OBJECTIVE: VITAL SIGNS: Temperature 100.8, pulse 135, blood pressure 112/75, respiratory rate 29, saturating 98% on 4 L nasal cannula. GENERAL: The patient was sitting up in bed, in no acute distress. Alert and oriented x4. CARDIOVASCULAR: Tachycardic rate, but regular rhythm. RESPIRATORY: Diminished breath sounds in the bilateral lower lung bases. No discernible wheezes. ABDOMEN: Normoactive bowel sounds. Soft, but moderately distended. Mild tenderness to palpation in the lower abdominal quadrants. EXTREMITIES: No cyanosis, clubbing, or edema. LABORATORY DATA: CBC with white blood cell count of 7.7, hemoglobin 6.2, hematocrit 19.6, platelets 49. Chemistry with a sodium 136, potassium 3.3, chloride 103, CO2 of 26, BUN 7, creatinine 0.53, glucose 112, AST 118, ALT 23, alkaline phosphatase 901, total bilirubin 4.2. IMAGING DATA: Chest x-ray obtained on December 08, 2019, showed normal-sized cardiomediastinal silhouette. An area of airspace opacity is again seen projecting over the right peripheral lung and there may also be an infiltrate in the left lower lobe, but stable when compared to previous. ASSESSMENT AND PLAN: 1. Severe mucositis improved but with mucositis of the upper GI tract, it could have also affected the small bowel resulting in a small bowel ileus, which then could contribute to increased abdominal distention. I would recommend a CT scan of the abdomen and pelvis for further evaluation. 2. Neutropenic fever. The patient is currently on broad-spectrum antibiotics including antifungals and antivirals as part of treatment for this particular condition. We would defer to primary team. 3. Diarrhea. The patient does continue to have approximately 1 to 2 liquid bowel movements per day with recent stool studies negative for the presence of Clostridium difficile. It is unclear if mucositis within the small bowel could be potentially contributing to this. 4. Significant hypoxia secondary to pleural effusion. 5. Metastatic breast cancer with metastatic disease to the liver. The patient is presenting with elevated LFTs, most likely related to the numerous hypodensities in her liver related to metastatic breast cancer. Currently undergoing treatment for the breast cancer, which would be ultimately beneficial for the liver. 6. Anemia. The patient had a significant drop in her H and H when compared to yesterday, but I feel that yesterday's value may have been an erroneous value. Currently, she denies any evidence of overt GI bleeding including hematemesis, melena, or hematochezia. This may be related to a possible intravascular process given her elevated bilirubin and may benefit from evaluation of direct bilirubin as part of this cause. I would continue to trend her H and H and transfuse as necessary to maintain an H and H of 7/21. We will continue to monitor for signs of active GI bleeding. We will continue to follow. Please call with any questions. Job ID: [id number]
[2019-12-08] MEDS: Preparation H Ointment 57 gram tube TOP PRN (20:42)
[2019-12-08] MEDS: MEROPENEM 1 GM/50 ML 1 GM in Premix Bag 1 BAG IVPB SCH (21:46)
[2019-12-09] MEDS: Acyclovir Sodium 260 MG in Sodium Chloride 0.9% 100 ML IVPB SCH ×3 (01:15→18:57)
[2019-12-09] MEDS: Acetaminophen 650 MG/20.3 ML UDCUP PO PRN (01:41)
[2019-12-09] MEDS: Vancomycin 1 GM in Premix Bag 1 BAG IVPB SCH ×3 (01:54→19:00)
[2019-12-09] MEDS: Morphine 4 MG/ML VIAL SLOW IVP PRN ×2 (03:08→08:26)
[2019-12-09 04:38] LABS: ALT (SGPT) 19 U/L (8-55); AST (SGOT) 111 U/L (5-34); Albumin 2.2 g/dL (3.5-5.0); Alkaline Phosphatase 933 U/L (40-110); Anion Gap 13 mmol/L (10-20); BUN (Urea Nitrogen) 4 mg/dL (7.0-18.7); Bilirubin, Total 4.3 mg/dL (0.2-1.2); Calc. Creatinine Clearance 167 mL/min (70-130); Calcium 6.8 mg/dL (7.8-10.44); Carbon Dioxide 26 mmol/L (22-29); Chloride 101 mmol/L (98-107); Estimated GFR-MDRD Greater than 90; Globulin 3.5 g/dL (2.4-3.5); Glucose 136 mg/dL (70-105); Protein, Total 5.7 g/dL (6.0-8.3); Sodium 137 mmol/L (136-145)
[2019-12-09] MEDS: MEROPENEM 1 GM/50 ML 1 GM in Premix Bag 1 BAG IVPB SCH ×3 (05:09→22:04)
[2019-12-09 05:47] LABS: Anisocytosis MODERATE=16-30 cells (100X) (0-5/hpf); Band 22 % (5-11); Hemoglobin 8.9 g/dL (12.0-16.0); Lymphocytes 24 % (21-51); MDiff Complete? YES; Mean Corpuscular HGB CONC 30.9 g/dL (32.0-36.0); Mean Corpuscular Hemoglobin 31.2 pg (27.0-31.0); Mean Platelet Volume 6.4 fL (7.4-10.4); Monocytes 8 % (0-10); Myelocyte 2 % (0-0); Neutrophil 44 % (42-75); Nucleated RBC 5 % (0); Platelet Count 61 thou/uL (130-400); Platelet Morphology Comment Appears Decreased; RBC Distribution Width 21.7 % (11.5-14.5); Red Blood Cell (RBC) Count 2.86 mill/uL (4.20-5.40); White Blood Cell (WBC) Count 8.5 thou/uL (4.8-10.8)
[2019-12-09 06:55] LABS: Phosphorus Less than 1.0 mg/dL (2.3-4.7)
[2019-12-09] MEDS ORDERED: CCU Electrolyte Replacement 1 EACH FS SCH (07:30)
[2019-12-09] MEDS ORDERED: PHOS-NAK 1 PKT PACK PO PRN (07:31)
[2019-12-09] MEDS ORDERED: Potassium Chloride 40 MEQ in Premix Bag 1 BAG IVPB PRN (07:31)
[2019-12-09] MEDS ORDERED: Potassium Chloride 40 MEQ in Sodium Chloride 0.9% 250 ML 250 ML IVPB PRN (07:31)
[2019-12-09] MEDS ORDERED: Magnesium 2 GM/50 ML 2 GM in Premix Bag 1 BAG IVPB PRN (07:31)
[2019-12-09] MEDS ORDERED: Magnesium Oxide 400 MG TAB PO PRN ×2 (07:31)
[2019-12-09] MEDS ORDERED: Potassium Phosphate 9 MMOL in Sodium Chloride 0.9% 100 ML IVPB PRN (07:31)
[2019-12-09] MEDS ORDERED: CCU ELECTROLYTE REPLACEMENT PROTOCOL FS PRN (07:31)
[2019-12-09] MEDS ORDERED: Potassium Phosphate 15 MMOL in Sodium Chloride 0.9% 250 ML 250 ML IV PRN (07:31)
[2019-12-09] MEDS ORDERED: Potassium Chloride 20 MEQ TAB PO PRN (07:31)
[2019-12-09] MEDS ORDERED: Potassium Phosphate 12 MMOL in Sodium Chloride 0.9% 250 ML 250 ML IV PRN (07:31)
--- NOTE | 2019-12-09 07:34 | RAD ---
Chest one view HISTORY: Dyspnea. Pneumonia. Follow-up. COMPARISON: 12/08/2019. FINDINGS: Cardiac silhouette is now more obscured by increasing density of infiltrate throughout the right lung, involving primarily the lower lobe. Patchy infiltrate throughout the left lung has also progressed. Mediastinum remains midline. Pulmonary vasculature is engorged. Left subclavian Port-A-Cath in place. No evidence of pneumothorax. IMPRESSION : Worsening bilateral infiltrates.
[2019-12-09] MEDS: Aluminum & Magnesium Hydroxide 60 ML, Lidocaine 2% Viscous Solution 30 ML, diphenhydrAM... SSW SCH ×2 (07:52→12:30)
[2019-12-09] MEDS: Levalbuterol HCl 0.63 MG/3 ML NEB NEB SCH ×3 (08:08→22:54)
--- NOTE | 2019-12-09 08:10 | CON ---
DATE OF CONSULTATION: HISTORY OF PRESENT ILLNESS: This is a 39-year-old female, who has metastatic breast cancer, widely metastatic, who recently underwent placement of a PleurX catheter on the left as well as a MediPort. She received chemotherapy and then presented with septic picture, has been on antibiotics. She has been having drainage of her left PleurX by her brother at home with the most recent drainage being about 450 mL this past weekend. The right side had a large pleural effusion and she underwent 1000 mL drainage procedure about [address] Castelan and is now dyspneic again. I have repeated a chest x-ray, which shows both infiltrate and a large right pleural effusion. Her hemoglobin appears stable suggesting that this is not a hemorrhagic issue. Her oncologic situation is that she has extensive liver metastasis with her liver actually extending down into the pelvis. She has had treatment since 2007 including a left mastectomy and chemotherapy with initial good result and then recurrent disease. [place] recently [place] here with the child to be closer to her brother, who can assist her. She has primarily had issues with abdominal pain and dyspnea, and then on this admission, has had persistent low-grade fevers and is on multiple antibiotics with the assistance of Dr. Eng from Infectious Disease. PHYSICAL EXAMINATION: On examination today, she is on a non-rebreather and dyspneic with a tachycardic heart rate of about 110. Her heart rate goes up to about 130 at times, her blood pressure is about 110. She has her MediPort accessed with a clear dressing on it and there is no obvious signs of infection when examining through the dressing. The other incision site has some scab on it, but is not obviously infected. LABORATORY DATA: Laboratory values include a potassium of 3, a normal to low creatinine. Her bilirubin is elevated at 4, her alkaline phosphatase is 900. Her hemoglobin is 8.9, her platelet count is 61,000, which has been relatively stable since 12/03. PLAN: Plan at this time is for a PleurX catheter on the right. The patient's overall condition is rather poor with a nontolerance of the most recent chemotherapy, making me concerned that further chemotherapy may not be possible and that her overall situation will continue to decline. Job ID: [id number]
[2019-12-09] MEDS: Pantoprazole 40 MG VIAL IVP SCH (08:58)
[2019-12-09] MEDS ORDERED: Potassium Phosphate 44 MMOL in Sodium Chloride 0.9% 500 ML IVPB SCH (09:00)
[2019-12-09] MEDS: Ascorbic Acid 500 mg Chewable Tablet PO SCH (09:05)
[2019-12-09] MEDS: Gabapentin 300 MG CAP PO SCH (09:08)
--- NOTE | 2019-12-09 09:14 | PDOC.HOSPP ---
- Subjective Encounter Date: 12/09/19 Encounter Time: 09:13 Subjective: Ms. Guallpa was seen today in follow-up of neutropenic fever, and now respiratory failureover the past few days. She is much more dyspneic today than yesterday. She has had re-accumulation of the pleural fluid on the right. She can barely speak as a result of the dyspnea, and appears extremely weak. - Objective Vital Signs & Weight: Vital Signs (12 hours) Temp Pulse Resp BP Pulse Ox 12/09/19 06:00 98.5 F 125 H 42 H 118/78 98 12/09/19 05:39 98.6 F 125 H 40 H 122/76 94 L 12/09/19 04:00 98.6 F 99 12/09/19 02:00 99.1 F 12/09/19 00:00 98.6 F Weight Admit Weight 143 lb 6.4 oz Weight 143 lb 6.4 oz Most Recent Monitor Data Heart Rate from ECG 132 NIBP 120/81 NIBP BP-Mean 94 Respiration from ECG 31 SpO2 100 I&O: 12/08/19 12/09/19 12/10/19 06:59 06:59 06:59 Intake Total 3671 2112 Output Total 2800 3620 100 Balance 871 -1508 -100 Result Diagrams: 12/09/19 03:23 12/09/19 03:23 Hospitalist ROS - Medication Medications: Active Medications Generic Name Dose Route Start Last Admin Trade Name Freq PRN Reason Stop Dose Admin Acetaminophen 650 mg 12/02/19 19:15 12/09/19 01:41 Tylenol Elixir PO 650 mg Q4H PRN Administration Headache/Fever or Pain (1-3) Alprazolam 0.5 mg 12/06/19 15:45 12/08/19 20:14 Xanax PO 0.5 mg TIDPRN PRN Administration Anxiety Amino Acids/Electrolytes/Dextrose 1,000 ml 12/03/19 14:00 12/06/19 15:25 Clinimix E 4.25/5 IV 1,000 ml INF ODILON Administration Ascorbic Acid 1,000 mg 12/03/19 09:00 12/08/19 09:45 Vitamin C PO Not Given DAILY ODILON Benzonatate 100 mg 12/06/19 23:19 12/08/19 20:11 Tessalon PO 100 mg Q4H PRN Administration Cough Bisacodyl 10 mg 12/02/19 18:33 12/08/19 20:15 Dulcolax MD 10 mg DAILYPRN PRN Administration Constipation Calcium Carbonate 1,000 mg 12/02/19 11:58 12/02/19 18:50 Tums PO 1,000 mg Q4H PRN Administration Heartburn or Indigestion Cholecalciferol 5,000 units 12/02/19 16:00 12/08/19 15:42 Vitamin D3 PO Not Given Q2DAYS ODILON Al Hydroxide/Mg Hydroxide 60 0 ml 12/03/19 18:00 12/09/19 07:52 ml/ Lidocaine HCl 30 ml/ SSW Not Given Diphenhydramine HCl 75 mg Q6HR ODILON Cyclobenzaprine HCl 10 mg 12/02/19 15:55 12/09/19 08:00 Flexeril PO 10 mg Q8H PRN Administration Muscle Spasm Fentanyl 150 mcg 12/06/19 23:00 12/06/19 23:12 Duragesic TD 150 mcg Q3D ODILON Administration Gabapentin 600 mg 12/02/19 21:00 12/08/19 20:15 Neurontin PO Not Given TID ODILON Guaifenesin/Dextromethorphan 15 ml 12/02/19 11:58 12/08/19 23:20 Robitussin Dm PO 15 ml Q4H PRN Administration Cough Hydrocortisone Acetate 25 mg 12/03/19 13:53 12/03/19 21:35 Anusol-Hc MD 25 mg BIDPRN PRN Administration Hemorrhoids Hydrocortisone/Pramoxine 1 gm 12/05/19 11:02 12/05/19 13:27 Analpram Hc MD 12/15/19 11:02 1 applic TID PRN Administration Topical Anesthetic Micafungin Sodium 100 mg/ 100 mls @ 100 mls/hr 12/07/19 16:00 12/08/19 15:42 Sodium Chloride IVPB 100 mls Q24H ODILON Administration Acyclovir Sodium 260 mg/ 105.2 mls @ 105.2 mls/hr 12/07/19 17:00 12/09/19 01: 15 Sodium Chloride IVPB 105.2 mls Q8H ODILON Administration Vancomycin HCl 1 gm/ Device 200 mls @ 200 mls/hr 12/08/19 10:00 12/09/19 01: 54 IVPB 200 mls 0200,1000,1800 ODILON Administration Meropenem 1 gm/ Device 50 mls @ 100 mls/hr 12/08/19 22:00 12/09/19 05:09 IVPB 50 mls Q8HR ODILON Administration Levalbuterol HCl 0.63 mg 12/04/19 15:11 12/09/19 08:08 Xopenex NEB Not Given G1IN-BO ODILON Lorazepam 1 mg 12/08/19 11:19 12/08/19 23:30 Ativan SLOW IVP 1 mg HS PRN Administration Insomnia Magnesium Hydroxide 30 ml 12/02/19 18:33 12/02/19 18:51 Milk Of Magnesium PO 30 ml DAILYPRN PRN Administration Constipation Mineral Oil/White Petrolatum 0 gm 12/04/19 14:04 12/04/19 14:49 Aquaphor 99 Gm TOP 1 applic PRN PRN Administration SKIN Miscellaneous Medication 0 gm 12/03/19 20:54 12/08/19 20:42 Preparation H Ointment TOP 1 appful TIDPRN PRN Administration Hemorrhoids Morphine Sulfate 4 mg 12/02/19 18:29 12/09/19 08:26 Morphine SLOW IVP 4 mg Q4H PRN Administration Pain Pantoprazole Sodium 40 mg 12/06/19 09:00 12/09/19 08:58 Protonix IVP 40 mg DAILY ODILON Administration Saccharomyces Boulardii 250 mg 12/03/19 09:00 12/08/19 09:45 Florastor PO Not Given DAILY ODILON Simethicone 80 mg 12/08/19 21:00 12/08/19 20:14 Mylicon Chewable PO 80 mg BID ODILON Administration Sodium Chloride 10 ml 12/02/19 09:00 12/08/19 20:15 Flush - Normal Saline IVF 10 ml Q12HR ODILON Administration Sodium Chloride 10 ml 12/05/19 20:22 12/06/19 11:40 Normal Saline Pf FS 10 ml PRN PRN Administration RECONSTITUTION - Exam Eye: PERRL, scleral icterus Heart: RRR, no murmur, no gallops, no rubs, normal peripheral pulses Respiratory: tachypneic (decreased breath sounds on the right, and rales on the left.) Gastrointestinal: soft, non-tender, non-distended, normal bowel sounds, no palpable masses, no hepatomegaly Extremities: no cyanosis, no edema Hosp A/P (1) Acute and chronic respiratory failure with hypoxia Code(s): J96.21 - ACUTE AND CHRONIC RESPIRATORY FAILURE WITH HYPOXIA Status: Acute (2) Malignant pleural effusion Code(s): J91.0 - MALIGNANT PLEURAL EFFUSION Status: Acute (3) Mucositis (ulcerative) due to antineoplastic therapy Code(s): K12.31 - ORAL MUCOSITIS (ULCERATIVE) DUE TO ANTINEOPLASTIC THERAPY Status: Acute (4) Neutropenic fever Code(s): D70.9 - NEUTROPENIA, UNSPECIFIED; R50.81 - FEVER PRESENTING WITH CONDITIONS CLASSIFIED ELSEWHERE Status: Acute (5) Hypertension Code(s): I10 - ESSENTIAL (PRIMARY) HYPERTENSION Status: Acute Qualifiers: Hypertension type: essential hypertension Qualified Code(s): I10 - Essential (primary) hypertension (6) Stage IV carcinoma of breast Code(s): C50.919 - MALIGNANT NEOPLASM OF UNSP SITE OF UNSPECIFIED FEMALE BREAST Status: Chronic - Plan * Acute on chronic respiratory failure- due to malignant pleural effusion on the right. She has re-accumulated pleural fluid in the right lung, and is having significant work of breathing. [facility] She will have PleurX catheter placed on the right. She is so weak and debiliated that it is expected that she will remain intubated following the procedure. This has vijay explained to Dr. Guallpa, her brother. * Neutropenic fever- Cefepime has been chaned to Meropenem, and will continue Vancomycin, Micafungin, and Acyclovir * Severe anemia- likely related to chemotherapy- transfuse as needed * Thrombocytopenia- due to chemotherapy * Liver function tests have vijay stable * HTN- blood pressure is stable * Hypokalemia and Hypophosphatemia- continue to replace
[2019-12-09 09:43] LABS: Vancomycin, Trough 16.6 ug/mL
[2019-12-09] MEDS: Saccharomyces boulardii 250 MG CAP PO SCH (09:43)
[2019-12-09] MEDS: Simethicone Chewable 80 MG TAB PO SCH ×2 (09:44→20:34)
[2019-12-09] MEDS ORDERED: Midazolam HCl 2 mg/2 ml Vial ONE (10:20)
[2019-12-09] MEDS ORDERED: Fentanyl 100 MCG/2 ML VIAL ONE (10:20)
[2019-12-09] MEDS ORDERED: Lidocaine 1% (PF) 30 ML VIAL ONE (10:21)
[2019-12-09] MEDS ORDERED: Norepinephrine 8 MG/0.9% NS 250 ML IVPB PRN (12:14)
[2019-12-09] MEDS ORDERED: Ventilator Sedation Protocol 1 EACH FS SCH (12:15)
[2019-12-09] MEDS ORDERED: Fentanyl BOLUS 250 ML IVPB PRN (12:22)
[2019-12-09] MEDS ORDERED: Propofol BOLUS 1,000 MG/100 ML VIAL IV PRN (12:22)
[2019-12-09] MEDS ORDERED: Succinylcholine Chloride 20 MG/ML 10 ml SYRINGE FS ONE (12:26)
[2019-12-09] MEDS ORDERED: PHENYLEPHRINE-NS 100 MCG/ML 10 ML SYRINGE ONE (12:26)
[2019-12-09] MEDS ORDERED: Rocuronium Bromide 10 MG/ML (10ML VIAL) ONE (12:26)
[2019-12-09] MEDS: Propofol 1,000 MG/100 ML VIAL IV PRN (12:27)
[2019-12-09] MEDS: Lorazepam 2 MG/ML VIAL SLOW IVP PRN ×5 (12:43→17:55)
[2019-12-09] MEDS: Lactated Ringer's 1,000 ML IV SCH (12:48)
[2019-12-09] MEDS: Morphine 2 MG/ML SYRINGE SLOW IVP PRN (15:25)
--- NOTE | 2019-12-09 15:42 | RAD ---
PORTABLE CHEST: 12/09/19 at 12:18 p.m. INDICATIONS: Post intubation. COMPARISON: Comparison made to film earlier today at 7:28 a.m. FINDINGS/IMPRESSION: ET tube has tip at darrick and should be slightly retracted. Central line is unchanged. Diffuse confluent consolidation in the right lung again noted. Hazy infiltrates and/or edema througho ut the left lung. POS: AGW
--- NOTE | 2019-12-09 15:54 | OP ---
DATE OF PROCEDURE: 12/09/2019 PREOPERATIVE DIAGNOSIS: Malignant pleural effusion with respiratory distress. POSTOPERATIVE DIAGNOSIS: Malignant pleural effusion with respiratory distress. PROCEDURE PERFORMED: 1. Right PleurX catheter. 2. Right pleural chest tube, #20-Wallisian. ANESTHESIA: General. ESTIMATED BLOOD LOSS: Minimal. FINDINGS: The patient had about 600 mL of yellow pleural fluid removed. DESCRIPTION OF PROCEDURE: After prepping and draping, 1% lidocaine was used to infiltrate the skin at the proposed site of catheter entry, and as the needle was passed in the intercostal space, air was aspirated. Following this, an interspace lower was chosen and a similar infiltration and aspiration revealed more air. At that time, it was unclear as to why fluid was not being found, and on questioning of the anesthesiologist, the patient was on 20 mm of PEEP. At that time, the PEEP was turned off and the Finder needle was again placed and yellow fluid was obtained and a wire inserted over the catheter. Following this, the PleurX catheter was brought through a separate incision through its tunnel. Peel-Away sheath introduced and catheter was placed in the pleural space and about 350 mL of fluid was obtained. Following this, a 20-Wallisian chest tube was placed slightly more anterior to deal with the anticipated pneumothorax and this was secured to the skin. An additional 300 mL of fluid was removed from this and the patient is to be taken to the ICU in guarded condition. Job ID: [id number]
[2019-12-09] MEDS: fentaNYL Citrate/PF 2,000 MCG in Sodium Chloride 0.9% 60 ML IV SCH (17:04)
--- NOTE | 2019-12-09 18:04 | PRG ---
DATE OF SERVICE: 12/09/2019 SUBJECTIVE: The patient had a PleurX catheter placed on the right side as well as the chest tube to manage the expected pneumothorax by Dr. Gilliland yesterday. She is intubated in the ICU, still having problems with hypotension and tachypnea requiring bilevel ventilatory support intermittently. Dr. Guallpa has evaluated her and still would like to pursue full effort at the moment. She is sedated at this time. OBJECTIVE: VITAL SIGNS: Temperature has normalized. Blood pressure 100/62, pulse 150, O2 saturation is 96, 50% FiO2, 5 of PEEP. HEENT: Pupils are constricted. CHEST: She has the bilateral PleurX catheters and a right-sided chest tube, right subclavian central line. Diminished breath sounds, right and left side. HEART: S1 and S2. Regular rate. Tachycardic with a systolic murmur at the aortic level. ABDOMEN: Moderately distended, question of ascites. Fields catheter in place, and I's and O's are negative for the past 24 hours. Slightly positive now. LABORATORY DATA: White cell count is up to 8.5, hemoglobin 8.9, platelets 44,000, 22% neutrophils, 24% bands. Creatinine is 0.47, alkaline phosphatase 933 with AST 111, ALT 90, albumin 2.2. The C diff test in stool was negative. Currently, on acyclovir, micafungin, meropenem, and vancomycin. ASSESSMENT AND DISCUSSION: Metastatic breast cancer to lungs, liver, pleural space, bones, and I believe brain too with neutropenic fever, which has resolved. Respiratory failure, managed with PleurX catheters and a chest tube on the right side. Still with hypotension and quite poor prognosis in view of the widespread malignancy and deterioration of her respiratory, hemodynamic status. Job ID: [id number]
[2019-12-09 18:15] LABS: Potassium 3.8 mmol/L (3.5-5.1)
[2019-12-09 18:27] LABS: Phosphorus 1.8 mg/dL (2.3-4.7)
[2019-12-09] MEDS: Micafungin 100 MG in Sodium Chloride 0.9% 100 ML IVPB SCH (18:33)
--- NOTE | 2019-12-09 18:46 | PRG ---
DATE OF SERVICE: 12/09/2019 SUBJECTIVE: Melissa Guallpa went to the OR today for placement of a tunneled catheter. She also had a chest tube placed. Her hemodynamics postprocedure stable. Surprisingly, her pulmonary compliance is quite poor. Her peak airway pressure with tidal volume of 400 mL is 36 and her plateau pressures in the 33 to 34 range. OBJECTIVE: LUNGS: Clear anteriorly. HEART: Regular rhythm. ABDOMEN: Soft. LABORATORY DATA: White count 8.5, hemoglobin 8.9, and platelets 44,000. Sodium 137, potassium 3, chloride 101, bicarb 26, BUN 4, and creatinine 0.47. ASSESSMENT AND PLAN: She was miserable prior to going to the operating room, was asking to be intubated. I do not think she is weanable. I believe she has a rapidly progressive aggressive breast cancer at this point, and her pulmonary compliance issues will keep her from successfully weaning. She has become extremely deconditioned lately. The ventilator changes this weekend that shall be made should be small. I would not anticipate an attempt at weaning and extubation this weekend unless we refer comfort care and hospice. I talked to her brother about this, who is a physician, and explained the above. I have explained to him that I do not think she can survive this. Critical care time 30 min. Job ID: [id number] MTDD
--- NOTE | 2019-12-09 22:16 | PRG ---
DATE OF SERVICE: 12/09/2019 SUBJECTIVE: Ms. Guallpa had a chest tube placed today. She continues to have overall clinical decline with respiratory failure and challenges with pain control and hemodynamic compromise. OBJECTIVE: VITAL SIGNS: Temperature 97.6, pulse 150, blood pressure 69/51. GENERAL: She is sedated on the vent. LUNGS: Have coarse breath sounds bilaterally. HEART: Tachycardic. ABDOMEN: Bowel sounds present. She has bilious output from her OG tube. She did have a bowel movement today. EXTREMITIES: No lower extremity edema. LABORATORY DATA: Bilirubin 4.3, AST 111, ALT 19, alkaline phosphatase 933, creatinine 0.47. White blood cell count 8.5, hemoglobin 8.9, platelets 61,000. IMPRESSION: 1. Widely metastatic breast cancer. 2. Respiratory failure. 3. Elevated liver tests secondary to extensive hepatic metastases. 4. Ileus. She did have a bowel movement today and has had bilious output from her OG tube. RECOMMENDATIONS: She is receiving full supportive care. Unfortunately, she continues to progressively decline. Job ID: [id number]
[2019-12-10] MEDS: fentaNYL Citrate/PF 2,000 MCG in Sodium Chloride 0.9% 60 ML IV SCH ×4 (00:02→22:27)
[2019-12-10] MEDS: Acetaminophen 650 MG/20.3 ML UDCUP PO PRN ×2 (00:14→04:22)
[2019-12-10] MEDS: Acyclovir Sodium 260 MG in Sodium Chloride 0.9% 100 ML IVPB SCH ×3 (00:39→17:33)
[2019-12-10] MEDS: Vancomycin 1 GM in Premix Bag 1 BAG IVPB SCH ×3 (02:52→18:30)
[2019-12-10] MEDS: Lactated Ringer's 1,000 ML IV SCH ×3 (02:52→23:05)
[2019-12-10 03:47] LABS: ALT (SGPT) 18 U/L (8-55); AST (SGOT) 99 U/L (5-34); Alkaline Phosphatase 798 U/L (40-110); Anion Gap 13 mmol/L (10-20); BUN (Urea Nitrogen) 8 mg/dL (7.0-18.7); Bilirubin, Total 4.7 mg/dL (0.2-1.2); Calc. Creatinine Clearance 121 mL/min (70-130); Calcium 6.5 mg/dL (7.8-10.44); Carbon Dioxide 24 mmol/L (22-29); Chloride 104 mmol/L (98-107); Estimated GFR-MDRD Greater than 90; Globulin 3.4 g/dL (2.4-3.5); Glucose 138 mg/dL (70-105); Magnesium 1.7 mg/dL (1.6-2.6); Protein, Total 5.4 g/dL (6.0-8.3); Sodium 137 mmol/L (136-145)
[2019-12-10 04:02] LABS: Band 30 % (5-11); Hemoglobin 11.1 g/dL (12.0-16.0); Hypochromia SLIGHT = 6-15 cells (100X) (0-5/hpf); Lymphocytes 13 % (21-51); MDiff Complete? YES; Mean Corpuscular HGB CONC 31.9 g/dL (32.0-36.0); Mean Corpuscular Hemoglobin 31.3 pg (27.0-31.0); Mean Corpuscular Volume 98.1 fL (78.0-98.0); Mean Platelet Volume 7.4 fL (7.4-10.4); Metamyelocyte 4 % (0-0); Monocytes 4 % (0-10); Neutrophil 49 % (42-75); Platelet Count 73 thou/uL (130-400); Platelet Morphology Comment Appears Decreased; RBC Distribution Width 21.6 % (11.5-14.5); Red Blood Cell (RBC) Count 3.53 mill/uL (4.20-5.40); White Blood Cell (WBC) Count 10.4 thou/uL (4.8-10.8)
[2019-12-10] MEDS: MEROPENEM 1 GM/50 ML 1 GM in Premix Bag 1 BAG IVPB SCH ×3 (05:27→21:17)
[2019-12-10] MEDS: Levalbuterol HCl 0.63 MG/3 ML NEB NEB SCH ×3 (07:32→22:55)
--- NOTE | 2019-12-10 07:51 | RAD ---
EXAM: Portable chest PROVIDED CLINICAL HISTORY: Respiratory insufficiency COMPARISON: 12/09/2019 FINDINGS: Significant interval change with respect to the prior examination is not apparent. IMPRESSION: As above.
--- NOTE | 2019-12-10 07:53 | PDOC.HOSPP ---
- Subjective Encounter Date: 12/10/19 Encounter Time: 07:52 Subjective: Ms. Guallpa was seen today in follow-up of respiratory failure due to malignant pleural effusion. She is now intubated. She is wake, but sedated. She appears to be comfortable. - Objective Vital Signs & Weight: Vital Signs (12 hours) Temp Pulse Resp BP Pulse Ox 12/10/19 07:33 128 H 12/10/19 07:32 128 H 20 97 12/10/19 06:00 25 H 12/10/19 04:00 101.8 F H 23 H 12/10/19 02:52 96 12/10/19 02:51 140 H 96/62 12/10/19 02:00 24 H 12/10/19 00:00 101.0 F H 34 H 12/09/19 22:55 140 H 85/66 L 12/09/19 22:54 140 H 30 H 97 12/09/19 22:00 27 H 12/09/19 20:25 150 H 69/51 L 12/09/19 20:00 97.6 F 31 H 96 Weight Admit Weight 143 lb 6.4 oz Weight 154 lb 5.177 oz Most Recent Monitor Data Heart Rate from ECG 129 NIBP 87/61 NIBP BP-Mean 69 Respiration from ECG 19 SpO2 96 I&O: 12/09/19 12/10/19 12/11/19 06:59 06:59 06:59 Intake Total 2112 2263 Output Total 3620 2055 Balance -1508 208 Result Diagrams: 12/10/19 03:00 12/10/19 03:00 Hospitalist ROS - Medication Medications: Active Medications Generic Name Dose Route Start Last Admin Trade Name Freq PRN Reason Stop Dose Admin Acetaminophen 650 mg 12/02/19 19:15 12/10/19 04:22 Tylenol Elixir PO 650 mg Q4H PRN Administration Headache/Fever or Pain (1-3) Amino Acids/Electrolytes/Dextrose 1,000 ml 12/03/19 14:00 12/06/19 15:25 Clinimix E 4.25/5 IV 1,000 ml INF ODILON Administration Bisacodyl 10 mg 12/02/19 18:33 12/08/19 20:15 Dulcolax WI 10 mg DAILYPRN PRN Administration Constipation Cyclobenzaprine HCl 10 mg 12/02/19 15:55 12/09/19 08:00 Flexeril PO 10 mg Q8H PRN Administration Muscle Spasm Hydrocortisone Acetate 25 mg 12/03/19 13:53 12/03/19 21:35 Anusol-Hc WI 25 mg BIDPRN PRN Administration Hemorrhoids Hydrocortisone/Pramoxine 1 gm 12/05/19 11:02 12/05/19 13:27 Analpram Hc WI 12/15/19 11:02 1 applic TID PRN Administration Topical Anesthetic Micafungin Sodium 100 mg/ 100 mls @ 100 mls/hr 12/07/19 16:00 12/09/19 18:33 Sodium Chloride IVPB 100 mls Q24H ODILON Administration Acyclovir Sodium 260 mg/ 105.2 mls @ 105.2 mls/hr 12/07/19 17:00 12/10/19 00: 39 Sodium Chloride IVPB 105.2 mls Q8H ODILON Administration Vancomycin HCl 1 gm/ Device 200 mls @ 200 mls/hr 12/08/19 10:00 12/10/19 02: 52 IVPB 200 mls 0200,1000,1800 ODILON Administration Meropenem 1 gm/ Device 50 mls @ 100 mls/hr 12/08/19 22:00 12/10/19 05:27 IVPB 50 mls Q8HR ODILON Administration Magnesium Sulfate 1 gm/ Sodium 102 mls @ 102 mls/hr 12/09/19 07:31 12/10/19 04:36 Chloride IV 102 mls PRN PRN Administration MAG LEVEL 1.4 - 2.0 Potassium Phosphate 9 mmol/ 103 mls @ 25.75 mls/hr 12/09/19 07:31 12/09/19 22 :03 Sodium Chloride IVPB 103 mls ASDIR PRN Administration Phosphate 1.0-1.8 Lactated Ringer's 1,000 mls @ 75 mls/hr 12/09/19 12:15 12/10/19 02:52 Lactated Ringer's IV Not Given .[id number] ODILON Norepinephrine Bitartrate 250 mls @ 0 mls/hr 12/09/19 12:14 12/09/19 20:22 Levophed IVPB 250 mls PRN PRN Administration To maintain MAP > 65 Protocol Titrate Fentanyl Citrate 2,000 mcg/ 100 mls @ 0 mls/hr 12/09/19 12:22 12/10/19 00:02 Sodium Chloride IV 01/08/20 12:22 100 mls INF ODILON Administration Protocol Per Protocol Levalbuterol HCl 0.63 mg 12/04/19 15:11 12/10/19 07:32 Xopenex NEB 0.63 mg [id number] ODILON Administration Lorazepam 2 mg 12/09/19 12:22 12/09/19 17:55 Ativan SLOW IVP 01/08/20 12:22 2 mg Q1H PRN Administration Breakthrough agitation Mineral Oil/White Petrolatum 0 gm 12/04/19 14:04 12/04/19 14:49 Aquaphor 99 Gm TOP 1 applic PRN PRN Administration SKIN Miscellaneous Medication 0 gm 12/03/19 20:54 12/08/19 20:42 Preparation H Ointment TOP 1 appful TIDPRN PRN Administration Hemorrhoids Morphine Sulfate 2 mg 12/09/19 12:22 12/09/19 15:25 Morphine SLOW IVP 01/08/20 12:22 2 mg Q1H PRN Administration BREAKTHROUGH PAIN/Agitation Pantoprazole Sodium 40 mg 12/06/19 09:00 12/09/19 08:58 Protonix IVP 40 mg DAILY OIDLON Administration Propofol 1,000 mg 12/09/19 12:22 12/09/19 12:27 Diprivan IV 01/08/20 12:22 1,000 mg INF PRN Administration TO ACHIEVE GOAL RASS Protocol Saccharomyces Boulardii 250 mg 12/03/19 09:00 12/09/19 09:43 Florastor PO Not Given DAILY ODILON Simethicone 80 mg 12/08/19 21:00 12/09/19 20:34 Mylicon Chewable PO Not Given BID ODILON Sodium Chloride 10 ml 12/02/19 09:00 12/09/19 20:34 Flush - Normal Saline IVF 10 ml Q12HR ODILON Administration Sodium Chloride 10 ml 12/05/19 20:22 12/06/19 11:40 Normal Saline Pf FS 10 ml PRN PRN Administration RECONSTITUTION - Exam Eye: PERRL, scleral icterus Heart: RRR, no murmur, no gallops, no rubs, normal peripheral pulses Respiratory: rales (rales at thebase), rhonchi Gastrointestinal: soft (+ hepatomegaly) Extremities: no cyanosis, no edema Hosp A/P (1) Acute and chronic respiratory failure with hypoxia Code(s): J96.21 - ACUTE AND CHRONIC RESPIRATORY FAILURE WITH HYPOXIA Status: Acute (2) Malignant pleural effusion Code(s): J91.0 - MALIGNANT PLEURAL EFFUSION Status: Acute (3) Mucositis (ulcerative) due to antineoplastic therapy Code(s): K12.31 - ORAL MUCOSITIS (ULCERATIVE) DUE TO ANTINEOPLASTIC THERAPY Status: Acute (4) Neutropenic fever Code(s): D70.9 - NEUTROPENIA, UNSPECIFIED; R50.81 - FEVER PRESENTING WITH CONDITIONS CLASSIFIED ELSEWHERE Status: Acute (5) Hypertension Code(s): I10 - ESSENTIAL (PRIMARY) HYPERTENSION Status: Acute Qualifiers: Hypertension type: essential hypertension Qualified Code(s): I10 - Essential (primary) hypertension (6) Stage IV carcinoma of breast Code(s): C50.919 - MALIGNANT NEOPLASM OF UNSP SITE OF UNSPECIFIED FEMALE BREAST Status: Chronic - Plan * Acute on chronic respiratory failure- due to malignant pleural effusion on the right. She is s/p PleurX catheter on the right. She has existing PleurX catheter on the left * Neutropenic fever- Continue Meropenem, Vancomycin, Micafungin, and Acyclovir * Severe anemia- likely related to chemotherapy- transfuse as needed * Thrombocytopenia- due to chemotherapy * Liver function tests have vijay stable * HTN- blood pressure is stable * Hypokalemia and Hypophosphatemia- improved today * Symptom Management
--- NOTE | 2019-12-10 08:00 | PDOC.MOPN ---
Interval History: intubated, sedated. arousable to voice. she is anxious but more comfortable than yesterday - Vital Signs Vital Signs: Vital Signs (12 hours) Temp Pulse Resp BP Pulse Ox 12/10/19 07:33 128 H 12/10/19 07:32 128 H 20 97 12/10/19 06:00 25 H 12/10/19 04:00 101.8 F H 23 H 12/10/19 02:52 96 12/10/19 02:51 140 H 96/62 12/10/19 02:00 24 H 12/10/19 00:00 101.0 F H 34 H 12/09/19 22:55 140 H 85/66 L 12/09/19 22:54 140 H 30 H 97 12/09/19 22:00 27 H 12/09/19 20:25 150 H 69/51 L 12/09/19 20:00 97.6 F 31 H 96 Weight Admit Weight 143 lb 6.4 oz Weight 154 lb 5.177 oz Most Recent Monitor Data Heart Rate from ECG 129 NIBP 87/61 NIBP BP-Mean 69 Respiration from ECG 19 SpO2 96 - Physical Exam General: Mild distress Lungs: Other (decreased BS in bases carleen) Abdomen: Normal bowel sounds, Other (enlarged palpable liver) Skin: No rashes - Labs Result Diagrams: 12/10/19 03:00 12/10/19 03:00 Lab results: Laboratory Results - last 24 hr 12/10/19 03:00: Phosphorus 2.0 L 12/10/19 03:00: Sodium 137, Potassium 4.0, Chloride 104, Carbon Dioxide 24, Anion Gap 13, BUN 8, Creatinine 0.65, Estimated GFR (MDRD) Greater than 90, Glucose 138 H, Calcium 6.5 L, Magnesium 1.7, Total Bilirubin 4.7 H, AST 99 H, ALT 18, Alkaline Phosphatase 798 H, Serum Total Protein 5.4 L, Albumin 2.0 L, Globulin 3.4, Albumin/Globulin Ratio 0.6 L 12/10/19 03:00: WBC 10.4, RBC 3.53 L, Hgb 11.1 L, Hct 34.7 L, MCV 98.1 H, MCH 31.3 H, MCHC 31.9 L, RDW 21.6 H, Plt Count 73 L, MPV 7.4, Neutrophils % (Manual ) 49, Band Neuts % (Manual) 30 H, Lymphocytes % (Manual) 13 L, Monocytes % ( Manual) 4, Metamyelocytes % (Man) 4 H, Hypochromia SLIGHT = 6-15 cells, Plt Morphology Comment Appears Decreased L 12/09/19 15:54: Potassium 3.8, Phosphorus 1.8 L 12/09/19 08:34: Vancomycin Trough 16.6 12/09/19 03:23: Crossmatch See Detail A/P - Problem (1) Elevated LFTs Current Visit: Yes Code(s): R79.89 - OTHER SPECIFIED ABNORMAL FINDINGS OF BLOOD CHEMISTRY Status: Acute (2) Malnutrition Current Visit: Yes Code(s): E46 - UNSPECIFIED PROTEIN-CALORIE MALNUTRITION Status: Acute (3) Mucositis (ulcerative) due to antineoplastic therapy Current Visit: Yes Code(s): K12.31 - ORAL MUCOSITIS (ULCERATIVE) DUE TO ANTINEOPLASTIC THERAPY Status: Acute (4) Neutropenic fever Current Visit: Yes Code(s): D70.9 - NEUTROPENIA, UNSPECIFIED; R50.81 - FEVER PRESENTING WITH CONDITIONS CLASSIFIED ELSEWHERE Status: Acute (5) Abdominal pain Current Visit: Yes Code(s): R10.9 - UNSPECIFIED ABDOMINAL PAIN Status: Acute Qualifiers: Abdominal location: generalized Qualified Code(s): R10.84 - Generalized abdominal pain (6) Breast cancer Current Visit: No Status: Acute (7) Epigastric pain Current Visit: No Code(s): R10.13 - EPIGASTRIC PAIN Status: Acute (8) Liver metastases Current Visit: No Code(s): C78.7 - SECONDARY MALIG NEOPLASM OF LIVER AND INTRAHEPATIC BILE DUCT Status: Acute (9) Tachycardia with heart rate 100-120 beats per minute Current Visit: No Code(s): R00.0 - TACHYCARDIA, UNSPECIFIED Status: Acute (10) Bone metastases Current Visit: No Code(s): C79.51 - SECONDARY MALIGNANT NEOPLASM OF BONE Status: Chronic (11) Neutropenia Current Visit: No Code(s): D70.9 - NEUTROPENIA, UNSPECIFIED Status: Chronic - Plan Plan: 1. appreciate pulmonary and palliative care help. I have recommended in the past she be a DNR and be hospice but her brother has not allowed this. He is still this morning insistent she be a full code 2. cont supportive measures 3. blood counts have recovered from chemo 4. she is dying of pulmonary and liver metastatic disease and her prognosis is poor, guarded. She will likely on this hospitalization
--- NOTE | 2019-12-10 08:38 | OP ---
DATE OF PROCEDURE: 12/09/2019 PROCEDURE: Right femoral central line placement. PREOPERATIVE DIAGNOSIS: Poor IV access. POSTOPERATIVE DIAGNOSIS: Successful line placement. ANESTHESIA: 1% lidocaine without epinephrine. DESCRIPTION OF PROCEDURE: Informed consent was obtained from her brother. The patient first had her right groin area scanned with ultrasound to locate the vein. The area was cleansed with chlorhexidine and draped sterilely. 1% lidocaine was used to anesthetize the entry site. On first attempt, the right femoral vein was cannulated and triple-lumen catheter was passed via the modified Seldinger technique. Three ports flushed venous blood. She tolerated the procedure well. Job ID: [id number]
[2019-12-10] MEDS: Pantoprazole 40 MG VIAL IVP SCH (08:52)
[2019-12-10] MEDS: Simethicone Chewable 80 MG TAB PO SCH ×2 (08:52→21:17)
[2019-12-10] MEDS: Saccharomyces boulardii 250 MG CAP PO SCH (08:52)
--- NOTE | 2019-12-10 09:40 | PRG ---
DATE OF SERVICE: SUBJECTIVE: Melissa Guallpa is a 39-year-old female, intubated in the vent, sedated, but she is very responsive, opened her eyes. Denies any pain or discomfort. OBJECTIVE: VITAL SIGNS: Her blood pressure was 87/61, respirations are about 20, sats , pulse 120, afebrile. I's and O's negative. CHEST: Bilateral rhonchi and crackles. CARDIAC: Normal S1 and S2. No gallops. ABDOMEN: Distended, soft. LABORATORY DATA: Calcium is 6.5, alkaline phosphatase 798, total bilirubin is 4.7. Renal function is normal. H and H stable. Platelet count is 73,000. X-ray shows bilateral pleural effusion. ASSESSMENT AND PLAN: 1. Metastatic breast cancer. 2. Liver mets. 3. Bone mets. 4. Bilateral pleural effusion. 5. Respiratory failure. 6. Thrombocytopenia. Does not appear at this stage she is weanable. I reviewed Oncology's note. She considers overall long-term prognosis is grave. She has been seen by ID. She is on multiple antibiotics. Those of all cultures are negative. I would deescalate antibiotics since all cultures are negative. Overall, prognosis is grave. We will continue to monitor while in the ICU. One-half hour of critical time. Job ID: [id number]
[2019-12-10] MEDS: Lorazepam 2 MG/ML VIAL SLOW IVP PRN ×3 (11:16→17:34)
[2019-12-10] MEDS: Micafungin 100 MG in Sodium Chloride 0.9% 100 ML IVPB SCH (15:45)
[2019-12-10] MEDS ORDERED: Pancrelipase DR 12000 1 CAP FS PRN (15:59)
[2019-12-10] MEDS ORDERED: Sodium Bicarbonate Tab 325 MG TAB PER TUBE PRN (15:59)
--- NOTE | 2019-12-10 17:10 | PRG ---
DATE OF SERVICE: 12/10/2019 SUBJECTIVE: The patient is wide awake, follows commands. She waved at me when I entered the room. Dr. Matt is in the room with her. OBJECTIVE: VITAL SIGNS: Had a temperature 101.8 earlier today, but now she is 97.8; blood pressure 95/63; heart rate 118. LUNGS: With diminished breath sounds on the right side. PleurX catheters on right and left side. Chest tube on the right side only. ABDOMEN: Soft and not tender. A little bit distended. EXTREMITIES: She moves all extremities. NEUROLOGIC: She recognizes me and attempts to communicate. LABORATORY DATA: White cell count 10.4, hemoglobin 11.1, platelets 73,000, 49% neutrophils, 30% bands. Chest x-ray, quite a bit improved compared with previously with expanded right and left hemithorax. The right side with the effusion and tubes. ASSESSMENT/DISCUSSION: 1. Metastatic breast cancer with lung, liver, bone involvement. 2. Respiratory failure. 3. Neutropenia with fever. Now the fever has persisted. Neutropenia has resolved. 4. The patient's respiratory status has improved quite a bit after the procedure and we will repeat blood cultures from the line. She is currently on broad-spectrum coverage with acyclovir. She does have stomatitis, which is probably herpes simplex stomatitis, although it could be chemotherapy induced. Waiting on galactomannan antigen results to decide on Micafungin. Probably can discontinue Vancomycin. Job ID: [id number] [facility]
--- NOTE | 2019-12-10 17:45 | PRG ---
DATE OF SERVICE: 12/10/2019 SUBJECTIVE: Ms. Guallpa opens her eyes and follows commands. She had a large liquidy stool yesterday, but no bowel movement yet today. She is tolerating slow-rated tube feeds so far. OBJECTIVE: VITAL SIGNS: Temperature is 97.8, maximum temperature 101.8, pulse 120, and blood pressure 97/61. GENERAL: She is lightly sedated on the vent. LUNGS: Clear to auscultation bilaterally. HEART: Tachycardic. S1 and S2. ABDOMEN: Soft. Hypoactive bowel sounds. EXTREMITIES: No lower extremity edema. LABORATORY DATA: White blood cell count 7.7, hemoglobin 6.2, and platelets 49,000. Bilirubin 4.7, AST 99, ALT 18, and alkaline phosphatase 798. IMPRESSION: 1. End-stage breast cancer, metastatic to multiple sites including the liver and bones. 2. Respiratory failure. 3. Ileus. This seems to be improved overall. She did have a bowel movement yesterday and is tolerating slow-rate feeds now. She is on fentanyl at 250 mcg/hours, so certainly we may see poor motility related to this. For now, since she just had a liquidy bowel movement yesterday, we will monitor. She has stimulant laxative scheduled as needed. 4. Severe mucositis. 5. Pancytopenia. RECOMMENDATIONS: She is tolerating slow-rate tube feeds so far. She may need scheduled stimulant laxatives in light of the high-dose opioids. We will see how she does with her tube feeds for now. Job ID: [id number]
[2019-12-11] MEDS: Acyclovir Sodium 260 MG in Sodium Chloride 0.9% 100 ML IVPB SCH ×3 (00:37→17:08)
[2019-12-11] MEDS: Vancomycin 1 GM in Premix Bag 1 BAG IVPB SCH (01:54)
[2019-12-11 04:31] LABS: Band 15 % (5-11); Hemoglobin 9.4 g/dL (12.0-16.0); Lymphocytes 7 % (21-51); MDiff Complete? YES; Mean Corpuscular Hemoglobin 30.6 pg (27.0-31.0); Mean Corpuscular Volume 98.8 fL (78.0-98.0); Monocytes 3 % (0-10); Neutrophil 74 % (42-75); Platelet Count 61 thou/uL (130-400); Platelet Morphology Comment Appears Decreased; Promyelocytes 1 % (0-0); RBC Distribution Width 21.4 % (11.5-14.5); Red Blood Cell (RBC) Count 3.07 mill/uL (4.20-5.40)
[2019-12-11 04:57] LABS: ALT (SGPT) 14 U/L (8-55); AST (SGOT) 75 U/L (5-34); Albumin 1.9 g/dL (3.5-5.0); Alkaline Phosphatase 651 U/L (40-110); Anion Gap 11 mmol/L (10-20); BUN (Urea Nitrogen) 12 mg/dL (7.0-18.7); Bilirubin, Total 3.5 mg/dL (0.2-1.2); Calc. Creatinine Clearance 134 mL/min (70-130); Calcium 6.6 mg/dL (7.8-10.44); Carbon Dioxide 27 mmol/L (22-29); Chloride 106 mmol/L (98-107); Estimated GFR-MDRD Greater than 90; Globulin 3.3 g/dL (2.4-3.5); Glucose 167 mg/dL (70-105); Potassium 3.5 mmol/L (3.5-5.1); Protein, Total 5.2 g/dL (6.0-8.3); Sodium 140 mmol/L (136-145)
[2019-12-11] MEDS: MEROPENEM 1 GM/50 ML 1 GM in Premix Bag 1 BAG IVPB SCH ×3 (06:05→21:13)
[2019-12-11] MEDS: Lorazepam 2 MG/ML VIAL SLOW IVP PRN ×2 (06:06→14:48)
[2019-12-11] MEDS: Levalbuterol HCl 0.63 MG/3 ML NEB NEB SCH ×3 (06:29→22:32)
[2019-12-11] MEDS: fentaNYL Citrate/PF 2,000 MCG in Sodium Chloride 0.9% 60 ML IV SCH ×3 (06:32→21:59)
--- NOTE | 2019-12-11 08:48 | RAD ---
EXAM: CHEST ONE VIEW HISTORY: There are follow-up. Patient on ventilator COMPARISON: 12/10/2019 FINDINGS: Endotracheal tube, nasogastric tube, bilateral thoracostomy tubes, and the subclavian Mediport cathet er remain in place. There is increase in interstitial and alveolar opacities within the lungs bilaterally which involves the mid and lower lung zones bilaterally. The airspace opacity on the left has increased. No other interval change. IMPRESSION: Bilateral interstitial and alveolar opacities with confluence of the opacities which have increased o n the left. Findings may be related to bilateral pneumonia. Follow-up to resolution is recommended.
[2019-12-11 09:30] LABS: Vancomycin, Trough 35.6 ug/mL
[2019-12-11] MEDS ORDERED: Vancomycin 1 GM in Premix Bag 1 BAG IVPB SCH (10:00)
[2019-12-11] MEDS: Pantoprazole 40 MG VIAL IVP SCH (10:17)
[2019-12-11] MEDS: Saccharomyces boulardii 250 MG CAP PO SCH (10:17)
[2019-12-11] MEDS: Simethicone Chewable 80 MG TAB PO SCH ×2 (10:17→21:12)
[2019-12-11] MEDS ORDERED: Metoclopramide HCl 10 MG/2 ML VIAL IVP PRN (10:53)
--- NOTE | 2019-12-11 11:37 | PRG ---
DATE OF SERVICE: 12/11/2019 SUBJECTIVE: Ms. Guallpa has been getting tube feeds, but her residuals have been in the 200 to 400 range. She has had no bowel movements since the day before yesterday. She arouses to verbal stimulation and falls asleep otherwise on fentanyl 250 mcg/hour drip. OBJECTIVE: VITAL SIGNS: Temperature 99.8, maximum temperature yesterday was 101.8 from the morning, pulse 127, blood pressure 101/70. GENERAL: She is arousable. LUNGS: Clear to auscultation anteriorly. HEART: Tachycardic. S1 and S2. ABDOMEN: Mildly distended with hypoactive bowel sounds. EXTREMITIES: No lower extremity edema. LABORATORY DATA: Hemoglobin is 9.4, white blood cell count 7.0. Bilirubin 3.5, AST 75, ALT 14, alkaline phosphatase 651, albumin 1.9. IMPRESSION: 1. Metastatic breast cancer. 2. Respiratory failure. 3. Ileus. She is on fentanyl 250 mcg/hour. Last bowel movement was the day before yesterday. She is having some residuals in the 200 to 400 range with her feeds. We will continue the feeds, but try to add in some Reglan today. 4. Oral mucositis. 5. Pancytopenia. RECOMMENDATIONS: 1. Add Reglan IV. 2. Supportive care. Job ID: [id number]
[2019-12-11] MEDS ORDERED: Metoclopramide HCl 10 MG/2 ML VIAL IVP SCH ×2 (12:15→22:00)
[2019-12-11 12:20] LABS: Phosphorus 1.2 mg/dL (2.3-4.7)
[2019-12-11] MEDS ORDERED: Potassium Phosphate 30 MMOL in Sodium Chloride 0.9% 250 ML 250 ML IVPB SCH (13:00)
--- NOTE | 2019-12-11 14:59 | PRG ---
DATE OF SERVICE: 12/11/2019 HISTORY OF PRESENT ILLNESS: The patient is an unfortunate 39-year-old female with breast cancer diagnosed in 2007. At that time, she was ER positive, HER2 negative and has been followed in the Oncology Clinic. She has received chemotherapy and presents to the hospital now with evidence of febrile neutropenia and severe mucositis. She is known to have advanced metastatic disease. She has previously had a left PleurX catheter for recurrent effusion. I presumed the effusion is malignant, but have not seen a formal pathology report. At the time of presentation, she had not been eating or drinking well because of her mucositis. She had significant intravascular volume depletion. She had a new right fluid, which had reaccumulated and it was recommended that a PleurX catheter would be placed for ongoing management of that effusion. She was having respiratory distress and was taken to the operating room on 12/08 for PleurX catheter placement. Unfortunately, the procedure was complicated by the development of pneumothorax, possibly exacerbated by high intraoperative PEEP. She had been intubated for the procedure. A 20-Turkish chest tube was subsequently placed for control of her pneumothorax and she was returned to the intensive care unit. Since that time, she has continued to receive ventilatory support. There is no further leak from her chest tube and it is anticipated that the tube will remain until she has been extubated. The patient remains on fentanyl for sedation. A drainage of her left PleurX was done by her brother today, but only 100 mL of fluid was aspirated. PHYSICAL EXAMINATION: VITAL SIGNS: Blood pressure today 101/70, heart rate ranges from 110 to 130. Her brother reports that her normal heart rate is 110. Her respiratory rate is as much as 30. She is intubated and receiving support including a rate of 12, tidal volume of 400, and FiO2 of 40%. GENERAL: She will very minimally arouse due to her sedation. CHEST: Her right chest tube does not have any leak. There has been a total of about 800 mL of drainage since that tube was placed. She has a left port and a very large near exophytic right breast mass. She has low coarse lung rhonchi. HEART: Tachycardic without a murmur. ABDOMEN: Soft. There is no organomegaly. EXTREMITIES: She has no edema. She has no cyanosis or clubbing. LABORATORY DATA: White count today 7000, hemoglobin is 9.4 with hematocrit of 30.3, and a differential including 74 segs and 15 bands. Chemistry panel normal except for a calcium of 6.6, which approximates normal when corrected for low albumin. Liver tests are just above the upper limits of normal except for an alkaline phosphatase, which is 651. Chest x-ray today shows no pneumothorax and tubes to be in appropriate positions. There is increasing interstitial prominence, which is nonspecific. IMPRESSION: 1. Metastatic carcinoma of the breast, possibly to include malignant pleural effusion. 2. Bilateral effusions. She has a previously placed PleurX catheter on the left and recent placement on the right complicated by pneumothorax. The lung has expanded without evidence of ongoing leak. We will keep her tube in place until we can get her extubated. 3. Respiratory failure, hopefully improved now that she has drainage on the right. We will pursue weaning as expeditiously as possible. 4. Excess sedation, presumed secondary to chronic use of fentanyl for pain management. 5. Febrile neutropenia, resolved. PLAN: We will try today to reduce her FiO2 and ventilator rate and possibly even get onto CPAP. We would consider extubation as soon as possible. Unfortunately , prognosis is extremely poor, although her brothers seems to be in a great deal of denial. Critical Care 22 minutes. Job ID: [id number] [facility]
[2019-12-11] MEDS: Micafungin 100 MG in Sodium Chloride 0.9% 100 ML IVPB SCH (15:43)
--- NOTE | 2019-12-11 15:47 | PDOC.HOSPP ---
- Subjective Encounter Date: 12/11/19 Encounter Time: 09:30 Subjective: pt is AO and responds. PO4 low, afebrile, no high wbcs., CXR shows increased infilterate on left? - Objective Vital Signs & Weight: Vital Signs (12 hours) Temp Pulse Resp Pulse Ox 12/11/19 14:26 134 H 12/11/19 14:25 135 H 30 H 92 L 12/11/19 07:00 98.8 F 12/11/19 06:29 129 H 21 H 96 12/11/19 06:27 129 H 12/11/19 06:00 34 H 12/11/19 04:00 99.8 F H 20 Weight Admit Weight 143 lb 6.4 oz Weight 163 lb 2.273 oz Most Recent Monitor Data Heart Rate from ECG 139 NIBP 117/75 NIBP BP-Mean 89 Respiration from ECG 28 SpO2 90 I&O: 12/10/19 12/11/19 12/12/19 06:59 06:59 06:59 Intake Total 2263 4069.9 90 Output Total 2055 1560 5025 Balance 208 2509.9 -4935 Result Diagrams: 12/11/19 04:01 12/11/19 04:01 Hospitalist ROS - Medication Medications: Active Medications Generic Name Dose Route Start Last Admin Trade Name Freq PRN Reason Stop Dose Admin Acetaminophen 650 mg 12/02/19 19:15 12/10/19 04:22 Tylenol Elixir PO 650 mg Q4H PRN Administration Headache/Fever or Pain (1-3) Bisacodyl 10 mg 12/02/19 18:33 12/08/19 20:15 Dulcolax ID 10 mg DAILYPRN PRN Administration Constipation Cyclobenzaprine HCl 10 mg 12/02/19 15:55 12/09/19 08:00 Flexeril PO 10 mg Q8H PRN Administration Muscle Spasm Hydrocortisone Acetate 25 mg 12/03/19 13:53 12/03/19 21:35 Anusol-Hc ID 25 mg BIDPRN PRN Administration Hemorrhoids Hydrocortisone/Pramoxine 1 gm 12/05/19 11:02 12/05/19 13:27 Analpram Hc ID 12/15/19 11:02 1 applic TID PRN Administration Topical Anesthetic Micafungin Sodium 100 mg/ 100 mls @ 100 mls/hr 12/07/19 16:00 12/10/19 15:45 Sodium Chloride IVPB 100 mls Q24H ODILON Administration Acyclovir Sodium 260 mg/ 105.2 mls @ 105.2 mls/hr 12/07/19 17:00 12/11/19 10: 17 Sodium Chloride IVPB 105.2 mls Q8H ODILON Administration Meropenem 1 gm/ Device 50 mls @ 100 mls/hr 12/08/19 22:00 12/11/19 14:00 IVPB 50 mls Q8HR ODILON Administration Magnesium Sulfate 1 gm/ Sodium 102 mls @ 102 mls/hr 12/09/19 07:31 12/10/19 04:36 Chloride IV 102 mls PRN PRN Administration MAG LEVEL 1.4 - 2.0 Potassium Phosphate 9 mmol/ 103 mls @ 25.75 mls/hr 12/09/19 07:31 12/09/19 22 :03 Sodium Chloride IVPB 103 mls ASDIR PRN Administration Phosphate 1.0-1.8 Lactated Ringer's 1,000 mls @ 75 mls/hr 12/09/19 12:15 12/10/19 23:05 Lactated Ringer's IV 1,000 mls .[id number] ODILON Administration Norepinephrine Bitartrate 250 mls @ 0 mls/hr 12/09/19 12:14 12/09/19 20:22 Levophed IVPB 250 mls PRN PRN Administration To maintain MAP > 65 Protocol Titrate Fentanyl Citrate 2,000 mcg/ 100 mls @ 0 mls/hr 12/09/19 12:22 12/11/19 14:29 Sodium Chloride IV 01/08/20 12:22 100 mls INF ODILON Administration Protocol Per Protocol Potassium Phosphate 30 mmol/ 260 mls @ 43.333 mls/hr 12/11/19 13:00 12/11/19 13:58 Sodium Chloride IVPB 12/11/19 19:00 260 mls NOW ODILON Administration Levalbuterol HCl 0.63 mg 12/04/19 15:11 12/11/19 14:25 Xopenex NEB 0.63 mg [id number] ODILON Administration Lorazepam 2 mg 12/09/19 12:22 12/11/19 14:48 Ativan SLOW IVP 01/08/20 12:22 2 mg Q1H PRN Administration Breakthrough agitation Mineral Oil/White Petrolatum 0 gm 12/04/19 14:04 12/04/19 14:49 Aquaphor 99 Gm TOP 1 applic PRN PRN Administration SKIN Miscellaneous Medication 0 gm 12/03/19 20:54 12/08/19 20:42 Preparation H Ointment TOP 1 appful TIDPRN PRN Administration Hemorrhoids Morphine Sulfate 2 mg 12/09/19 12:22 12/09/19 15:25 Morphine SLOW IVP 01/08/20 12:22 2 mg Q1H PRN Administration BREAKTHROUGH PAIN/Agitation Pantoprazole Sodium 40 mg 12/06/19 09:00 12/11/19 10:17 Protonix IVP 40 mg DAILY ODILON Administration Propofol 1,000 mg 12/09/19 12:22 12/09/19 12:27 Diprivan IV 01/08/20 12:22 1,000 mg INF PRN Administration TO ACHIEVE GOAL RASS Protocol Saccharomyces Boulardii 250 mg 12/03/19 09:00 12/11/19 10:17 Florastor PO 250 mg DAILY ODILON Administration Simethicone 80 mg 12/08/19 21:00 12/11/19 10:17 Mylicon Chewable PO 80 mg BID ODILON Administration Sodium Chloride 10 ml 12/02/19 09:00 12/11/19 10:13 Flush - Normal Saline IVF Not Given Q12HR ODILON Sodium Chloride 10 ml 12/05/19 20:22 12/06/19 11:40 Normal Saline Pf FS 10 ml PRN PRN Administration RECONSTITUTION - Exam General Appearance: awake alert, ill appearing General - other findings: intubated, b/l thoracostomy, med port on the left, NGT w.. TF running. Eye: PERRL ENT: normocephalic atraumatic Neck: supple Heart: RRR Respiratory: CTAB Gastrointestinal: soft, normal bowel sounds Neurological: no focal deficits Psychiatric: A&O x 3 Hosp A/P - Plan (1) Acute and chronic respiratory failure with hypoxia Code(s): J96.21 - ACUTE AND CHRONIC RESPIRATORY FAILURE WITH HYPOXIA Status: Acute (2) Malignant pleural effusion Code(s): J91.0 - MALIGNANT PLEURAL EFFUSION Status: Acute (3) Mucositis (ulcerative) due to antineoplastic therapy Code(s): K12.31 - ORAL MUCOSITIS (ULCERATIVE) DUE TO ANTINEOPLASTIC THERAPY Status: Acute (4) Neutropenic fever Code(s): D70.9 - NEUTROPENIA, UNSPECIFIED; R50.81 - FEVER PRESENTING WITH CONDITIONS CLASSIFIED ELSEWHERE Status: Acute (5) Hypertension Code(s): I10 - ESSENTIAL (PRIMARY) HYPERTENSION Status: Acute Qualifiers: Hypertension type: essential hypertension Qualified Code(s): I10 - Essential (primary) hypertension (6) Stage IV carcinoma of breast Code(s): C50.919 - MALIGNANT NEOPLASM OF UNSP SITE OF UNSPECIFIED FEMALE BREAST Status: Chronic - Plan * Acute on chronic respiratory failure- due to malignant pleural effusion on the right. She is s/p PleurX catheter on the right. She has existing PleurX catheter on the left * Neutropenic fever- Continue Meropenem, Vancomycin, Micafungin, and Acyclovir * Severe anemia- likely related to chemotherapy- transfuse as needed * Thrombocytopenia- due to chemotherapy * Liver function tests have vijay stable * HTN- blood pressure is stable * Hypokalemia and Hypophosphatemia- improved today * Symptom Management * * Hypophosphatemia * --being replaced Need to monitor all lines. -fuentes - dark uine b/l thoracotomy tubes--connected w.. chest tube. NGT--TF running at ? sub med cath/port --not accessed currently.
[2019-12-11] MEDS: Lactated Ringer's 1,000 ML IV SCH (17:08)
[2019-12-11] MEDS: Metoclopramide HCl 10 MG/2 ML VIAL IVP SCH ×2 (17:12→22:55)
[2019-12-11] MEDS ORDERED: Sodium Chloride For Inhalation 0.9% 3 ML NEB ONE (22:01)
[2019-12-11 23:44] LABS: Phosphorus 1.9 mg/dL (2.3-4.7); Potassium 3.9 mmol/L (3.5-5.1)
[2019-12-12] MEDS: Lorazepam 2 MG/ML VIAL SLOW IVP PRN ×3 (00:01→08:45)
[2019-12-12] MEDS ORDERED: PHOS-NAK 1 PKT PACK PO SCH (00:15)
[2019-12-12] MEDS: Acyclovir Sodium 260 MG in Sodium Chloride 0.9% 100 ML IVPB SCH ×3 (00:43→17:50)
[2019-12-12] MEDS: Morphine 2 MG/ML SYRINGE SLOW IVP PRN (02:16)
[2019-12-12] MEDS: Propofol 1,000 MG/100 ML VIAL IV PRN ×2 (02:57→20:55)
[2019-12-12 04:11] LABS: Vancomycin, Random 14.8 ug/mL (See Comment)
[2019-12-12 04:13] LABS: Magnesium 2.1 mg/dL (1.6-2.6)
[2019-12-12 04:18] LABS: Phosphorus 1.6 mg/dL (2.3-4.7)
[2019-12-12 04:28] LABS: Band 16 % (5-11); Hemoglobin 10.5 g/dL (12.0-16.0); Hypochromia SLIGHT = 6-15 cells (100X) (0-5/hpf); Lymphocytes 3 % (21-51); MDiff Complete? YES; Mean Corpuscular HGB CONC 32.1 g/dL (32.0-36.0); Mean Corpuscular Hemoglobin 31.8 pg (27.0-31.0); Mean Corpuscular Volume 99.3 fL (78.0-98.0); Mean Platelet Volume 6.2 fL (7.4-10.4); Metamyelocyte 2 % (0-0); Monocytes 11 % (0-10); Neutrophil 68 % (42-75); Nucleated RBC 3 % (0); Platelet Count 76 thou/uL (130-400); Platelet Morphology Comment Appears Decreased; RBC Distribution Width 21.4 % (11.5-14.5)
[2019-12-12] MEDS ORDERED: Vancomycin HCl 750 MG in Sodium Chloride 0.9% 250 ML 250 ML IVPB SCH (05:00)
[2019-12-12] MEDS: Metoclopramide HCl 10 MG/2 ML VIAL IVP SCH ×4 (05:03→22:02)
[2019-12-12] MEDS: MEROPENEM 1 GM/50 ML 1 GM in Premix Bag 1 BAG IVPB SCH ×3 (05:05→21:57)
[2019-12-12] MEDS: PHOS-NAK 1 PKT PACK PO PRN ×3 (05:20→21:00)
[2019-12-12] MEDS: fentaNYL Citrate/PF 2,000 MCG in Sodium Chloride 0.9% 60 ML IV SCH ×3 (05:57→21:51)
[2019-12-12] MEDS: Levalbuterol HCl 0.63 MG/3 ML NEB NEB SCH ×3 (07:38→22:34)
[2019-12-12] MEDS: Saccharomyces boulardii 250 MG CAP PO SCH (08:49)
[2019-12-12] MEDS: Simethicone Chewable 80 MG TAB PO SCH ×2 (08:49→20:53)
[2019-12-12] MEDS: Pantoprazole 40 MG VIAL IVP SCH (08:49)
--- NOTE | 2019-12-12 08:54 | RAD ---
EXAM: CHEST ONE VIEW HISTORY: Shahram follow-up evaluation. Patient on ventilator. COMPARISON: 12/11/2019 FINDINGS: Lines and tubes remain unchanged in position including bilateral thoracostomy tubes. There are increa sed interstitial and alveolar opacities seen throughout the lungs bilaterally not significantly changed given differences in technique. No other interval change. IMPRESSION: Stable chest.
[2019-12-12 09:04] LABS: Anion Gap 14 mmol/L (10-20); BUN (Urea Nitrogen) 11 mg/dL (7.0-18.7); Calc. Creatinine Clearance 146 mL/min (70-130); Calcium 6.8 mg/dL (7.8-10.44); Carbon Dioxide 26 mmol/L (22-29); Chloride 108 mmol/L (98-107); Estimated GFR-MDRD Greater than 90; Glucose 127 mg/dL (70-105); Potassium 3.9 mmol/L (3.5-5.1); Sodium 144 mmol/L (136-145)
[2019-12-12] MEDS: Preparation H Ointment 57 gram tube TOP PRN (09:22)
[2019-12-12] MEDS: Bisacodyl 10 MG SUPP PR PRN (09:23)
[2019-12-12] MEDS ORDERED: Furosemide 40 MG/4 ML VIAL SLOW IVP SCH ×3 (09:30→20:00)
[2019-12-12] MEDS: Lactated Ringer's 1,000 ML IV SCH ×2 (09:34→20:52)
--- NOTE | 2019-12-12 09:58 | PRG ---
DATE OF SERVICE: 12/12/2019 SUBJECTIVE: The patient remains afebrile. OBJECTIVE: VITAL SIGNS: Her heart rate continues to be in the 130 to 140 range and her current blood pressure is 100/43. GENERAL: She is awake, but sedated. LUNGS: Bilateral rhonchi. CARDIAC: Tachycardia. Dressing on her MediPort site with an IV access and there was a small scabbing over her cephalic vein access site. ABDOMEN: Full. EXTREMITIES: She has no pitting edema, but she does have some serous drainage around her femoral puncture site. Chest tube output has been about 200 to 300 per shift and she has no air leak. She only had 100 mL drained from her left-sided PleurX yesterday. Her chest x-ray is not much changed from the day before. Her I and O are difficult to assess due to inadvertent entry on the output from the chest tube of 8000, but generally it appears that her intake is greater than her output by about 1 to 3 L per day. Unlikely that she can be weaned from the ventilator given her baseline tachypnea. Pleural effusions are minimal at this time. Whether IV Lasix would be of any benefit is difficult to ascertain. Her albumin is less than 2 due to her chronic illness and advance liver disease. Prognosis is poor. I will leave the chest tube in another day and would prefer to remove it post extubation, but I think it is unlikely she will achieve extubation. Job ID: [id number]
[2019-12-12 10:28] LABS: ALT (SGPT) 14 U/L (8-55); AST (SGOT) 97 U/L (5-34); Albumin 2.1 g/dL (3.5-5.0); Alkaline Phosphatase 921 U/L (40-110); Bilirubin, Direct 3.5 mg/dL (0.1-0.3); Bilirubin, Total 4.5 mg/dL (0.2-1.2); Protein, Total 5.8 g/dL (6.0-8.3)
[2019-12-12] MEDS: Albumin 25% 25 GM/100 ML BOT IVPB SCH ×2 (11:19→20:52)
--- NOTE | 2019-12-12 11:33 | PRG ---
DATE OF SERVICE: 12/12/2019 SUBJECTIVE: She has not shown significant improvement. We were able to reduce the IMV rate slightly, although she has a baseline tachypnea in the 30s and with any degree of agitation or restlessness becomes tachypneic into the 50s or higher. She is quite tachycardic into the 140s. Chest tube does not seem to be the issue without drainage or evidence of leaks. Her brother is quite unrealistic. He is of the opinion that she needs diuretic with albumin boosters because of her third spacing. It is actually my suspicion that she is intravascularly dry with a low albumin. While the albumin IV may help some of her third space issues, I think it will be countered by the Lasix. I have suggested that our primary focus should be on trying to wean and extubate her so that we can then deal with her chest tube and the anxiety associated with the endotracheal tube. If indeed the primary plan is to seek additional experimental treatment protocols of her breast cancer, we need to be able to move in that direction. I have told him that I am very pessimistic of this approach. He has convinced other physicians to order the Lasix and albumin and we will try this on a limited basis. PHYSICAL EXAMINATION: VITAL SIGNS: Blood pressure 97/66, heart rate is 140, respiratory rate in the mid 30s, but is high as 60 with spontaneous volume is only about 300 at best. Ventilator settings reviewed. I have reduced the IMV rate. She remains on 35% oxygen. GENERAL: She is tachypneic, agitated, but awake and nods her head and follows simple commands. LYMPHATIC: She has no adenopathy. BREAST: She has a very large right breast mass. HEART: Very tachycardic. LUNGS: Show very coarse bilateral breath sounds, especially on the left. ABDOMEN: Soft, mildly distended. There is no guarding. EXTREMITIES: Show pitting edema of anasarca. She has oozing of serous fluid at her femoral triple-lumen site. LABORATORY DATA: White count is 10, hemoglobin is 10.5, platelet count 68,000. Sodium 144, potassium 3.9, chloride 108, BUN 11, creatinine 0.6. Albumin has actually improved to 2.1 today compared to 1.9 yesterday. Total bilirubin is 4.5. IMAGING: Reviewed. IMPRESSION: 1. Metastatic breast cancer. 2. Intubation related to respiratory distress and post procedural right pneumothorax requiring chest tube. There is no leak. Unfortunately, we have not made a lot of progress with weaning due to agitation. 3. Tachycardia and hypotension. I presume this to be intravascular depletion compounded by her hypoalbuminemia, recent decrease in enteral nutrition, and limited IV fluids, although she is getting a lot of IV medications. PLAN: We will try to wean the ventilator as I think that is the dominant issue at hand. Her brother has been insistent that we try albumin and Lasix to deal with third space fluid. We can certainly try although I am pessimistic and more concerned that we are going to worsen blood pressure, heart rate, and electrolytes rather than benefit. We will at least limit this to the next couple of days. Ongoing discussions with her brother appropriate regarding the terminal nature of her disease. Critical care time today 45 minutes in direct care, consultation with family, coordination of care team. Job ID: [id number]
--- NOTE | 2019-12-12 14:09 | PRG ---
DATE OF SERVICE: 12/12/2019 SUBJECTIVE: Ms. Guallpa remains sedated on the vent. She is on high-dose narcotics. She is tolerating her tube feeds at 40 mL/h. OBJECTIVE: VITAL SIGNS: Temperature 99.5, pulse 140, blood pressure 115/81. GENERAL: She is sedated, but wakes up with light stimulation. LUNGS: Clear to auscultation bilaterally. HEART: Tachycardic S1 and S2. ABDOMEN: Mildly distended, but she has active bowel sounds and she is tolerating her tube feeds. EXTREMITIES: Have no lower extremity edema. IMPRESSION: 1. Metastatic breast cancer with multiple liver mets and respiratory failure. 2. Mucositis. 3. Pancytopenia. 4. Pain currently controlled on high-dose fentanyl drip. 5. Ileus. For now, she is tolerating her tube feeds well and her residuals have decreased. RECOMMENDATIONS: 1. We will continue Reglan. 2. I will sign off for now. Please call if GI can be of assistance. Job ID: [id number]
[2019-12-12] MEDS: Micafungin 100 MG in Sodium Chloride 0.9% 100 ML IVPB SCH (16:23)
[2019-12-13] MEDS: Acyclovir Sodium 260 MG in Sodium Chloride 0.9% 100 ML IVPB SCH ×2 (02:25→07:58)
[2019-12-13] MEDS: Lactated Ringer's 1,000 ML IV SCH (02:31)
[2019-12-13] MEDS: MEROPENEM 1 GM/50 ML 1 GM in Premix Bag 1 BAG IVPB SCH ×3 (05:07→21:14)
[2019-12-13] MEDS: Metoclopramide HCl 10 MG/2 ML VIAL IVP SCH ×4 (05:07→23:10)
[2019-12-13] MEDS: Furosemide 40 MG/4 ML VIAL SLOW IVP SCH ×2 (05:08→14:10)
[2019-12-13 05:33] LABS: ALT (SGPT) 14 U/L (8-55); AST (SGOT) 79 U/L (5-34); Albumin 2.5 g/dL (3.5-5.0); Alkaline Phosphatase 796 U/L (40-110); Anion Gap 12 mmol/L (10-20); BUN (Urea Nitrogen) 12 mg/dL (7.0-18.7); Bilirubin, Total 4.7 mg/dL (0.2-1.2); Calc. Creatinine Clearance 137 mL/min (70-130); Calcium 6.5 mg/dL (7.8-10.44); Carbon Dioxide 30 mmol/L (22-29); Chloride 109 mmol/L (98-107); Estimated GFR-MDRD Greater than 90; Globulin 2.7 g/dL (2.4-3.5); Glucose 103 mg/dL (70-105); Potassium 3.5 mmol/L (3.5-5.1); Protein, Total 5.2 g/dL (6.0-8.3); Sodium 147 mmol/L (136-145)
[2019-12-13 05:34] LABS: Band 23 % (5-11); Hemoglobin 7.8 g/dL (12.0-16.0); Lymphocytes 19 % (21-51); MDiff Complete? YES; Mean Corpuscular HGB CONC 30.9 g/dL (32.0-36.0); Mean Corpuscular Hemoglobin 30.6 pg (27.0-31.0); Mean Platelet Volume 6.6 fL (7.4-10.4); Metamyelocyte 1 % (0-0); Monocytes 10 % (0-10); Neutrophil 47 % (42-75); Nucleated RBC 8 % (0); Platelet Count 72 thou/uL (130-400); Platelet Morphology Comment Appears Decreased; RBC Distribution Width 21.2 % (11.5-14.5); Red Blood Cell (RBC) Count 2.55 mill/uL (4.20-5.40); White Blood Cell (WBC) Count 7.2 thou/uL (4.8-10.8)
[2019-12-13 05:37] LABS: Phosphorus 1.9 mg/dL (2.3-4.7)
[2019-12-13] MEDS: fentaNYL Citrate/PF 2,000 MCG in Sodium Chloride 0.9% 60 ML IV SCH ×2 (05:45→13:04)
[2019-12-13] MEDS: Propofol 1,000 MG/100 ML VIAL IV PRN ×2 (07:49→20:00)
[2019-12-13] MEDS: Saccharomyces boulardii 250 MG CAP PO SCH (07:55)
[2019-12-13] MEDS: Pantoprazole 40 MG VIAL IVP SCH (07:55)
[2019-12-13] MEDS: Albumin 25% 25 GM/100 ML BOT IVPB SCH ×2 (07:55→21:08)
[2019-12-13] MEDS: Simethicone Chewable 80 MG TAB PO SCH ×2 (07:57→21:08)
--- NOTE | 2019-12-13 08:10 | RAD ---
Chest one view HISTORY: Dyspnea. Intubated. Follow-up. COMPARISON: 12/12/2019. FINDINGS: Cardiac silhouette is magnified by projection and remains predominantly obscured by patchy areas of prominent parenchymal opacity throughout each lung, including the lingula and the right middle lobe. Mediastinum is midline. Lines and tubes appear unchanged in position, including bilateral thoracostom y tubes. No evidence of pneumothorax. Postoperative changes right axilla. IMPRESSION : Dense bilateral airspace disease, thoracostomy tubes, and other findings are stable.
[2019-12-13] MEDS: Levalbuterol HCl 0.63 MG/3 ML NEB NEB SCH ×3 (08:17→22:21)
[2019-12-13 08:44] LABS: Hemoglobin 7.9 g/dL (12.0-16.0); Mean Corpuscular HGB CONC 32.1 g/dL (32.0-36.0); Mean Corpuscular Hemoglobin 31.5 pg (27.0-31.0); Mean Corpuscular Volume 98.3 fL (78.0-98.0); Mean Platelet Volume 10.1 fL (7.4-10.4); Platelet Count 68 thou/uL (130-400); RBC Distribution Width 21.5 % (11.5-14.5); Red Blood Cell (RBC) Count 2.52 mill/uL (4.20-5.40); White Blood Cell (WBC) Count 8.6 thou/uL (4.8-10.8)
[2019-12-13] MEDS ORDERED: PHOS-NAK 1 PKT PACK PO SCH (09:00)
[2019-12-13 09:13] LABS: Anisocytosis MODERATE=16-30 cells (100X) (0-5/hpf); Band 25 % (5-11); Eosinophils 1 % (0-10); Lymphocytes 19 % (21-51); MDiff Complete? YES; Metamyelocyte 2 % (0-0); Monocytes 4 % (0-10); Myelocyte 4 % (0-0); Neutrophil 45 % (42-75); Nucleated RBC 6 % (0); Platelet Morphology Comment Appears Decreased; Polychromasia MODERATE = 3-4 cells (100X) (0-2/hpf)
[2019-12-13] MEDS: PHOS-NAK 1 PKT PACK PO SCH ×2 (11:50→21:08)
[2019-12-13] MEDS ORDERED: Potassium Chloride 20 MEQ in Sodium Chloride 0.45% 1,000 ML IV SCH (13:15)
--- NOTE | 2019-12-13 13:18 | PDOC.HOSPP ---
- Subjective Encounter Date: 12/12/19 Encounter Time: 10:20 Subjective: pt seen; d/w RN, Po4 being replaced. depen't edema? - Objective Vital Signs & Weight: Vital Signs (12 hours) Temp Pulse Resp BP Pulse Ox 12/13/19 10:28 124 H 100/58 L 12/13/19 08:17 124 H 19 98 12/13/19 08:13 129 H 82/42 L 12/13/19 06:00 31 H 12/13/19 04:00 98.4 F 32 H 12/13/19 02:00 18 Weight Admit Weight 143 lb 6.4 oz Weight 162 lb 7.691 oz Most Recent Monitor Data Heart Rate from ECG 123 NIBP 94/62 NIBP BP-Mean 72 Respiration from ECG 32 SpO2 97 I&O: 12/12/19 12/13/19 12/14/19 06:59 06:59 06:59 Intake Total 3112.7 3609.1 Output Total 03788 4065 Balance -7027.3 -455.9 Result Diagrams: 12/13/19 08:22 12/13/19 04:00 Hospitalist ROS - Medication Medications: Active Medications Generic Name Dose Route Start Last Admin Trade Name Freq PRN Reason Stop Dose Admin Acetaminophen 650 mg 12/02/19 19:15 12/10/19 04:22 Tylenol Elixir PO 650 mg Q4H PRN Administration Headache/Fever or Pain (1-3) Albumin Human 25 gm 12/12/19 21:00 12/13/19 07:55 Albumin 25% IVPB 12/14/19 09:01 25 gm BID ODILON Administration Bisacodyl 10 mg 12/02/19 18:33 12/08/19 20:15 Dulcolax RI 10 mg DAILYPRN PRN Administration Constipation Cyclobenzaprine HCl 10 mg 12/02/19 15:55 12/09/19 08:00 Flexeril PO 10 mg Q8H PRN Administration Muscle Spasm Furosemide 40 mg 12/13/19 06:00 12/13/19 05:08 Lasix SLOW IVP 12/14/19 06:01 40 mg 0600,1400 ODILON Administration Hydrocortisone/Pramoxine 1 gm 12/05/19 11:02 12/05/19 13:27 Analpram Hc RI 12/15/19 11:02 1 applic TID PRN Administration Topical Anesthetic Micafungin Sodium 100 mg/ 100 mls @ 100 mls/hr 12/07/19 16:00 12/12/19 16:23 Sodium Chloride IVPB 100 mls Q24H ODILON Administration Meropenem 1 gm/ Device 50 mls @ 100 mls/hr 12/08/19 22:00 12/13/19 05:07 IVPB 50 mls Q8HR ODILON Administration Potassium Phosphate 9 mmol/ 103 mls @ 25.75 mls/hr 12/09/19 07:31 12/09/19 22 :03 Sodium Chloride IVPB 103 mls ASDIR PRN Administration Phosphate 1.0-1.8 Norepinephrine Bitartrate 250 mls @ 0 mls/hr 12/09/19 12:14 12/09/19 20:22 Levophed IVPB 250 mls PRN PRN Administration To maintain MAP > 65 Protocol Titrate Fentanyl Citrate 2,000 mcg/ 100 mls @ 0 mls/hr 12/09/19 12:22 12/13/19 05:45 Sodium Chloride IV 01/08/20 12:22 100 mls INF ODILON Administration Protocol Per Protocol Levalbuterol HCl 0.63 mg 12/04/19 15:11 12/13/19 08:17 Xopenex NEB 0.63 mg [id number] ODILON Administration Lorazepam 2 mg 12/09/19 12:22 12/12/19 08:45 Ativan SLOW IVP 01/08/20 12:22 2 mg Q1H PRN Administration Breakthrough agitation Metoclopramide HCl 10 mg 12/11/19 17:00 12/13/19 11:51 Reglan IVP 10 mg Q6H ODILON Administration Mineral Oil/White Petrolatum 0 gm 12/04/19 14:04 12/04/19 14:49 Aquaphor 99 Gm TOP 1 applic PRN PRN Administration SKIN Miscellaneous Medication 0 gm 12/03/19 20:54 12/12/19 09:22 Preparation H Ointment TOP 1 appful TIDPRN PRN Administration Hemorrhoids Miscellaneous Medication 1 pkt 12/09/19 07:31 12/12/19 21:00 Phos-Nak PO 1 pkt TIDPRN PRN Administration FOR PHOS LEVEL 1.0 - 1.8 Miscellaneous Medication 2 pkt 12/13/19 09:00 12/13/19 11:50 Phos-Nak PO 2 pkt BID ODILON Administration Pantoprazole Sodium 40 mg 12/06/19 09:00 12/13/19 07:55 Protonix IVP 40 mg DAILY ODILON Administration Potassium Chloride 40 meq 12/09/19 07:31 12/13/19 05:48 Klor-Con PER TUBE 40 meq ASDIR PRN Administration FOR SERUM K+ 2.5-3.5 Propofol 1,000 mg 12/09/19 12:22 12/13/19 07:49 Diprivan IV 01/08/20 12:22 1,000 mg INF PRN Administration TO ACHIEVE GOAL RASS Protocol Saccharomyces Boulardii 250 mg 12/03/19 09:00 12/13/19 07:55 Florastor PO 250 mg DAILY ODILON Administration Simethicone 80 mg 12/08/19 21:00 12/13/19 07:57 Mylicon Chewable PO 80 mg BID ODILON Administration Sodium Chloride 10 ml 12/02/19 09:00 12/13/19 07:56 Flush - Normal Saline IVF 10 ml Q12HR ODILON Administration Sodium Chloride 10 ml 12/02/19 01:25 12/11/19 22:57 Flush - Normal Saline IVF 10 ml PRN PRN Administration Saline Flush Sodium Chloride 10 ml 12/05/19 20:22 12/06/19 11:40 Normal Saline Pf FS 10 ml PRN PRN Administration RECONSTITUTION - Exam General - other findings: vent Eye: PERRL ENT: normocephalic atraumatic Heart: RRR Respiratory: normal chest expansion, rales, rhonchi Gastrointestinal: soft, normal bowel sounds Neurological: no focal deficits Hosp A/P - Plan (1) Acute and chronic respiratory failure with hypoxia Code(s): J96.21 - ACUTE AND CHRONIC RESPIRATORY FAILURE WITH HYPOXIA Status: Acute (2) Malignant pleural effusion Code(s): J91.0 - MALIGNANT PLEURAL EFFUSION Status: Acute (3) Mucositis (ulcerative) due to antineoplastic therapy Code(s): K12.31 - ORAL MUCOSITIS (ULCERATIVE) DUE TO ANTINEOPLASTIC THERAPY Status: Acute (4) Neutropenic fever Code(s): D70.9 - NEUTROPENIA, UNSPECIFIED; R50.81 - FEVER PRESENTING WITH CONDITIONS CLASSIFIED ELSEWHERE Status: Acute (5) Hypertension Code(s): I10 - ESSENTIAL (PRIMARY) HYPERTENSION Status: Acute Qualifiers: Hypertension type: essential hypertension Qualified Code(s): I10 - Essential (primary) hypertension (6) Stage IV carcinoma of breast Code(s): C50.919 - MALIGNANT NEOPLASM OF UNSP SITE OF UNSPECIFIED FEMALE BREAST Status: Chronic - Plan * Acute on chronic respiratory failure- due to malignant pleural effusion on the right. She is s/p PleurX catheter on the right. She has existing PleurX catheter on the left * Neutropenic fever- Continue Meropenem, Vancomycin, Micafungin, and Acyclovir * Severe anemia- likely related to chemotherapy- transfuse as needed * Thrombocytopenia- due to chemotherapy * Liver function tests have vijay stable * HTN- blood pressure is stable * Hypokalemia and Hypophosphatemia- improved today * Symptom Management * * Hypophosphatemia * --being replaced -fuentes - dark uine b/l thoracotomy tubes--connected w.. chest tube.-----> likely to be removed after extubation. - on TF sub med cath/port --not accessed currently. Full code
--- NOTE | 2019-12-13 13:22 | PDOC.HOSPP ---
- Subjective Encounter Date: 12/13/19 Encounter Time: 09:50 Subjective: talk to pt's brother, PO4 level improving, left leg swollen, sig.. tachycardia with baseline HR in 110s. hgb drop to 7.8 from 10.5 - Objective Vital Signs & Weight: Vital Signs (12 hours) Temp Pulse Resp BP Pulse Ox 12/13/19 10:28 124 H 100/58 L 12/13/19 08:17 124 H 19 98 12/13/19 08:13 129 H 82/42 L 12/13/19 06:00 31 H 12/13/19 04:00 98.4 F 32 H 12/13/19 02:00 18 Weight Admit Weight 143 lb 6.4 oz Weight 162 lb 7.691 oz Most Recent Monitor Data Heart Rate from ECG 123 NIBP 94/62 NIBP BP-Mean 72 Respiration from ECG 32 SpO2 97 I&O: 12/12/19 12/13/19 12/14/19 06:59 06:59 06:59 Intake Total 3112.7 3609.1 Output Total 01987 4065 Balance -7027.3 -455.9 Result Diagrams: 12/13/19 08:22 12/13/19 04:00 Hospitalist ROS - Medication Medications: Active Medications Generic Name Dose Route Start Last Admin Trade Name Freq PRN Reason Stop Dose Admin Acetaminophen 650 mg 12/02/19 19:15 12/10/19 04:22 Tylenol Elixir PO 650 mg Q4H PRN Administration Headache/Fever or Pain (1-3) Albumin Human 25 gm 12/12/19 21:00 12/13/19 07:55 Albumin 25% IVPB 12/14/19 09:01 25 gm BID ODILON Administration Bisacodyl 10 mg 12/02/19 18:33 12/08/19 20:15 Dulcolax MA 10 mg DAILYPRN PRN Administration Constipation Cyclobenzaprine HCl 10 mg 12/02/19 15:55 12/09/19 08:00 Flexeril PO 10 mg Q8H PRN Administration Muscle Spasm Furosemide 40 mg 12/13/19 06:00 12/13/19 05:08 Lasix SLOW IVP 12/14/19 06:01 40 mg 0600,1400 ODILON Administration Hydrocortisone/Pramoxine 1 gm 12/05/19 11:02 12/05/19 13:27 Analpram Hc MA 12/15/19 11:02 1 applic TID PRN Administration Topical Anesthetic Micafungin Sodium 100 mg/ 100 mls @ 100 mls/hr 12/07/19 16:00 12/12/19 16:23 Sodium Chloride IVPB 100 mls Q24H ODILON Administration Meropenem 1 gm/ Device 50 mls @ 100 mls/hr 12/08/19 22:00 12/13/19 05:07 IVPB 50 mls Q8HR ODILON Administration Potassium Phosphate 9 mmol/ 103 mls @ 25.75 mls/hr 12/09/19 07:31 12/09/19 22 :03 Sodium Chloride IVPB 103 mls ASDIR PRN Administration Phosphate 1.0-1.8 Norepinephrine Bitartrate 250 mls @ 0 mls/hr 12/09/19 12:14 12/09/19 20:22 Levophed IVPB 250 mls PRN PRN Administration To maintain MAP > 65 Protocol Titrate Fentanyl Citrate 2,000 mcg/ 100 mls @ 0 mls/hr 12/09/19 12:22 12/13/19 05:45 Sodium Chloride IV 01/08/20 12:22 100 mls INF ODILON Administration Protocol Per Protocol Levalbuterol HCl 0.63 mg 12/04/19 15:11 12/13/19 08:17 Xopenex NEB 0.63 mg [id number] ODILON Administration Lorazepam 2 mg 12/09/19 12:22 12/12/19 08:45 Ativan SLOW IVP 01/08/20 12:22 2 mg Q1H PRN Administration Breakthrough agitation Metoclopramide HCl 10 mg 12/11/19 17:00 12/13/19 11:51 Reglan IVP 10 mg Q6H ODILON Administration Mineral Oil/White Petrolatum 0 gm 12/04/19 14:04 12/04/19 14:49 Aquaphor 99 Gm TOP 1 applic PRN PRN Administration SKIN Miscellaneous Medication 0 gm 12/03/19 20:54 12/12/19 09:22 Preparation H Ointment TOP 1 appful TIDPRN PRN Administration Hemorrhoids Miscellaneous Medication 1 pkt 12/09/19 07:31 12/12/19 21:00 Phos-Nak PO 1 pkt TIDPRN PRN Administration FOR PHOS LEVEL 1.0 - 1.8 Miscellaneous Medication 2 pkt 12/13/19 09:00 12/13/19 11:50 Phos-Nak PO 2 pkt BID ODILON Administration Pantoprazole Sodium 40 mg 12/06/19 09:00 12/13/19 07:55 Protonix IVP 40 mg DAILY ODILON Administration Potassium Chloride 40 meq 12/09/19 07:31 12/13/19 05:48 Klor-Con PER TUBE 40 meq ASDIR PRN Administration FOR SERUM K+ 2.5-3.5 Propofol 1,000 mg 12/09/19 12:22 12/13/19 07:49 Diprivan IV 01/08/20 12:22 1,000 mg INF PRN Administration TO ACHIEVE GOAL RASS Protocol Saccharomyces Boulardii 250 mg 12/03/19 09:00 12/13/19 07:55 Florastor PO 250 mg DAILY ODILON Administration Simethicone 80 mg 12/08/19 21:00 12/13/19 07:57 Mylicon Chewable PO 80 mg BID ODILON Administration Sodium Chloride 10 ml 12/02/19 09:00 12/13/19 07:56 Flush - Normal Saline IVF 10 ml Q12HR ODILON Administration Sodium Chloride 10 ml 12/02/19 01:25 12/11/19 22:57 Flush - Normal Saline IVF 10 ml PRN PRN Administration Saline Flush Sodium Chloride 10 ml 12/05/19 20:22 12/06/19 11:40 Normal Saline Pf FS 10 ml PRN PRN Administration RECONSTITUTION - Exam General Appearance: ill appearing Eye: PERRL ENT: normocephalic atraumatic Neck: supple Heart: RRR, normal peripheral pulses Respiratory: CTAB, normal chest expansion Gastrointestinal: soft, normal bowel sounds Extremities - other findings: left leg swollen, no skin color changes, quiet warm to touch Neurological: cranial nerve grossly intact, normal sensation to touch, no focal deficits Psychiatric: lethargic Hosp A/P - Plan (1) Acute and chronic respiratory failure with hypoxia Code(s): J96.21 - ACUTE AND CHRONIC RESPIRATORY FAILURE WITH HYPOXIA Status: Acute (2) Malignant pleural effusion Code(s): J91.0 - MALIGNANT PLEURAL EFFUSION Status: Acute (3) Mucositis (ulcerative) due to antineoplastic therapy Code(s): K12.31 - ORAL MUCOSITIS (ULCERATIVE) DUE TO ANTINEOPLASTIC THERAPY Status: Acute (4) Neutropenic fever Code(s): D70.9 - NEUTROPENIA, UNSPECIFIED; R50.81 - FEVER PRESENTING WITH CONDITIONS CLASSIFIED ELSEWHERE Status: Acute (5) Hypertension Code(s): I10 - ESSENTIAL (PRIMARY) HYPERTENSION Status: Acute Qualifiers: Hypertension type: essential hypertension Qualified Code(s): I10 - Essential (primary) hypertension (6) Stage IV carcinoma of breast Code(s): C50.919 - MALIGNANT NEOPLASM OF UNSP SITE OF UNSPECIFIED FEMALE BREAST Status: Chronic - Plan * Acute on chronic respiratory failure- due to malignant pleural effusion on the right. She is s/p PleurX catheter on the right. She has existing PleurX catheter on the left * Neutropenic fever- Continue Meropenem, Vancomycin, Micafungin, and Acyclovir * Severe anemia- likely related to chemotherapy- transfuse as needed * Thrombocytopenia- due to chemotherapy * Liver function tests have vijay stable * HTN- blood pressure is stable * Hypokalemia and Hypophosphatemia- * Symptom Management * * Hypophosphatemia * --being replaced -fuentes - dark uine - on TF sub med cath/port --not accessed currently. Full code 18 Mild hypernatremia --switch to 1/2 NS IVF Hypophostamia --improving, since consistently low, scheduled bid doses, will dc once PO4 > 2 -talk to Dr. Bourgeois who would see her today. Acute blood loss anemia --hgb dropped from 10.5 to 7.8 - rpt level 7.9 - no overt bleed, dilutional? - transfuse if hgb < 7 -close monitor b/l thoracotomy tubes--connected w.. chest tube.-----> likely to be removed after extubation.
--- NOTE | 2019-12-13 13:55 | ULT ---
Venous duplex sonogram left lower extremity HISTORY: Left leg pain and edema. FINDINGS: The left common femoral vein and greater saphenous junction were evaluated along with the f emoral, deep femoral, popliteal, and posterior tibial veins. There is good color and spectral Doppler flow, compression, and augmentation. IMPRESSION : Normal exam.
--- NOTE | 2019-12-13 14:01 | PRG ---
DATE OF SERVICE: 12/12/2019 SUBJECTIVE: Ms. Guallpa is tolerating her tube feeds. She has small smear of a bowel movement. OBJECTIVE: VITAL SIGNS: Temperature 98.4, pulse 124, blood pressure 100/58. GENERAL: She arouses to verbal stimuli. LUNGS: Clear to auscultation bilaterally. HEART: Tachycardic. S1 and S2. ABDOMEN: Soft and nondistended. Bowel sounds are present. EXTREMITIES: No lower extremity edema. LABORATORY DATA: White blood cell count 8.6, hemoglobin 7.9, platelets 68. Creatinine 0.6, bilirubin 4.7, AST 79, ALT 14, alkaline phosphatase 796, albumin 2.5. IMPRESSION: 1. Metastatic breast cancer, advanced. She has metastatic disease over the liver with associated elevated liver tests. 2. Mucositis. 3. Pain requiring high-dose fentanyl drip. 4. Ileus appears to be improved. She is tolerating her tube feeds with Reglan. RECOMMENDATIONS: 1. Continue Reglan. 2. If she develops constipation with the high-dose opioids, then consideration for Movantik or Relistor could be added. 3. I will sign off. Please call if GI can be of assistance. Job ID: [id number]
[2019-12-13] MEDS: 1/2 NS w/KCL 20 mEq 1,000 ML IV SCH (14:09)
[2019-12-13] MEDS: Micafungin 100 MG in Sodium Chloride 0.9% 100 ML IVPB SCH (16:43)
--- NOTE | 2019-12-13 19:50 | CON ---
DATE OF CONSULTATION: 12/13/2019 SERVICE: Nephrology. REASON FOR CONSULTATION: Electrolyte derangement. REQUESTING PHYSICIAN: Sanju Macias MD CHIEF COMPLAINT: Neutropenia. HISTORY OF PRESENT ILLNESS: A 39-year-old female with known metastatic breast cancer, on chemotherapy, who was admitted directly from [facility] for further evaluation and treatment of neutropenia associated with fever. The patient also had poor oral intake due to mucositis. Was started on broad-spectrum antibiotics, which was later broadened by Infectious Disease. Hospital course, however, was complicated by development of worsening shortness of breath requiring right-sided thoracentesis and subsequent PleurX catheter placement on the right side. PleurX catheter placement was complicated by shortness of breath and development of pneumothorax requiring chest tube placement remained intubated and mechanically ventilated. Was found to have hypokalemia and hypophosphatemia, which has been intermittent and persistent, hence nephrology consult. PAST MEDICAL HISTORY: 1. Asthma. 2. Breast cancer with metastasis. 3. Chronic respiratory failure. PAST SURGICAL HISTORY: 1. Right mastectomy. 2. Left-sided PleurX catheter placement. Port-A-Cath placement. FAMILY HISTORY: No significant history. This could not be obtained as the patient is intubated. SOCIAL HISTORY: Could not be obtained as patient is intubated. Review of medical records, however, showed the patient lives with son; denied alcohol, smoking, or recreational drug use. ALLERGIES: NO KNOWN DRUG ALLERGY REPORTED. MEDICATIONS: Prior to hospital medications, as follows; 1. Dilaudid p.r.n. 2. Albuterol inhaler p.r.n. 3. Xanax 0.5 mg p.o. at bedtime. 4. Duragesic patch. 5. Gabapentin. 6. Sucralfate. 7. Protonix. REVIEW OF SYSTEMS: Could not be performed as patient is intubated. PHYSICAL EXAMINATION: VITAL SIGNS: Temperature 98.2, heart rate 125, respiratory rate 26, blood pressure 100/58, SpO2 98% on FiO2 35%. GENERAL: Chronically ill-looking female, intubated. No obvious distress. HEENT: ET tube is in place. NECK: No obvious JVD appreciated. CARDIOVASCULAR: Regular rhythm and rate, but tachycardic. RESPIRATORY: Ventilator transmitted breath sounds are heard in both lung parks. Right-sided chest tube noted. GI: Full, soft, nondistended with bowel sounds. GENITAL: Fields catheter is in place, draining some urine. EXTREMITIES: Left-sided lower extremity edema noted. RESIDENCE MANAGER: The patient is sedated. She, however, wakes up with stimulation. DIAGNOSTIC DATA: CBC today showed WBC count of 8.6, hemoglobin of 7.9, MCV of 90.3, and platelets of 68. BMP today showed sodium 137, potassium 3.5, chloride 109, CO2 of 30, BUN 12, creatinine 0.65, glucose 103, calcium 6.5, phosphorus 1.9, total bilirubin 4.7, AST 79, ALT 14, alkaline phosphatase 796, total protein 5.2, albumin 2.5, globulin 2.7. Note that sodium was 144 yesterday and PO2 26. Chest x-ray performed earlier today showed dense bilateral airspace disease as well as thoracostomy tube noted. ASSESSMENT: 1. Hypernatremia: Due to free water deficit. Most likely related to poor oral intake and loop diuretic therapy. 2. Intravascular contraction given acute increase in BUN as well as tachycardia. 3. Hypophosphatemia: Due to poor oral intake, improving with supplementation. 4. Protein-calorie malnutrition. 5. Pancytopenia. 6. Febrile neutropenia, on treatment. 7. Metastatic breast cancer with metastasis to the liver, lungs, and bone. 8. Hypokalemia. Repleted. PLAN: 1. Agree with potassium phosphate supplementation. Also agree with albumin therapy to expand intravascular space as the patient seems to be volume contracted given persistent tachycardia. 2. We will monitor electrolytes and vitals closely given diuretic therapy. We will recheck urine creatinine as well as electrolytes in the morning. 3. Further treatment to follow depending on hospital course. Other treatment as per assistant production manager, Infectious Disease, and Cardiovascular Surgery team. Many thanks for involving us in the care of this patient. We will follow along with you. Job ID: [id number]
--- NOTE | 2019-12-13 21:40 | PRG ---
DATE OF SERVICE: 12/13/2019 SUBJECTIVE: Ms. Guallpa is mechanically ventilated. She is requiring a lot of sedation. Her IMV is set at 16, respiratory rates in the 30s to high 40s. Her peak airway pressure is 36 with a tidal volume 400 . OBJECTIVE: LUNGS: Clear anteriorly. HEART: Regular rhythm. ABDOMEN: Soft. EXTREMITIES: Without asymmetry. Met with her brother and answered all of his questions. LABORATORY DATA: White count 8.6, hemoglobin 7.9, platelets 68,000. Electrolytes are unremarkable. Phosphorous is 1.9, bilirubin is 4.7. IMPRESSION: Clinically very aggressive breast cancer. I believe all of her lung compliance issues related to tumor wrapping around both lungs in the pleural space. She certainly could have interstitial malignants disease as well. I have explained to her brother that I think she will pass away if we extubate her. Critical care time 30 min. Job ID: [id number] [id number]
[2019-12-14] MEDS: fentaNYL Citrate/PF 2,000 MCG in Sodium Chloride 0.9% 60 ML IV SCH ×2 (01:32→14:25)
[2019-12-14] MEDS: Metoclopramide HCl 10 MG/2 ML VIAL IVP SCH ×4 (05:02→23:57)
[2019-12-14] MEDS: MEROPENEM 1 GM/50 ML 1 GM in Premix Bag 1 BAG IVPB SCH ×3 (05:03→21:00)
[2019-12-14 05:14] LABS: ALT (SGPT) 11 U/L (8-55); AST (SGOT) 71 U/L (5-34); Albumin 2.7 g/dL (3.5-5.0); Alkaline Phosphatase 739 U/L (40-110); Anion Gap 11 mmol/L (10-20); BUN (Urea Nitrogen) 16 mg/dL (7.0-18.7); Bilirubin, Total 5.1 mg/dL (0.2-1.2); Calc. Creatinine Clearance 131 mL/min (70-130); Calcium 6.5 mg/dL (7.8-10.44); Carbon Dioxide 30 mmol/L (22-29); Chloride 111 mmol/L (98-107); Estimated GFR-MDRD Greater than 90; Globulin 2.7 g/dL (2.4-3.5); Glucose 120 mg/dL (70-105); Magnesium 1.9 mg/dL (1.6-2.6); Phosphorus 2.3 mg/dL (2.3-4.7); Potassium 3.7 mmol/L (3.5-5.1); Protein, Total 5.4 g/dL (6.0-8.3); Sodium 148 mmol/L (136-145)
[2019-12-14] MEDS: Furosemide 40 MG/4 ML VIAL SLOW IVP SCH (05:31)
[2019-12-14 05:46] LABS: Band 5 % (5-11); Hemoglobin 7.7 g/dL (12.0-16.0); Hypochromia SLIGHT = 6-15 cells (100X) (0-5/hpf); Lymphocytes 12 % (21-51); MDiff Complete? YES; Mean Corpuscular HGB CONC 31.4 g/dL (32.0-36.0); Mean Corpuscular Hemoglobin 31.2 pg (27.0-31.0); Mean Corpuscular Volume 99.4 fL (78.0-98.0); Mean Platelet Volume 6.2 fL (7.4-10.4); Monocytes 2 % (0-10); Neutrophil 81 % (42-75); Nucleated RBC 4 % (0); Platelet Count 73 thou/uL (130-400); Platelet Morphology Comment Appears Decreased; RBC Distribution Width 21.3 % (11.5-14.5); Red Blood Cell (RBC) Count 2.48 mill/uL (4.20-5.40); White Blood Cell (WBC) Count 8.1 thou/uL (4.8-10.8)
[2019-12-14] MEDS: 1/2 NS w/KCL 20 mEq 1,000 ML IV SCH (06:08)
[2019-12-14] MEDS: Propofol 1,000 MG/100 ML VIAL IV PRN ×2 (06:08→20:55)
--- NOTE | 2019-12-14 07:43 | RAD ---
Chest one view HISTORY: Dyspnea. Intubated. Follow-up. COMPARISON: 12/13/2019. FINDINGS: Cardiac silhouette remains predominantly obscured by ill-defined parenchymal opacity scatte red throughout each lung. Pulmonary vasculature remains engorged. Mediastinum is midline. Lines and tubes, including bilateral thoracostomy tubes, and other findings a re stable. No evidence of pneumothorax. IMPRESSION : Patchy bilateral airspace disease, chest tubes, and other findings are stable.
[2019-12-14] MEDS: Levalbuterol HCl 0.63 MG/3 ML NEB NEB SCH ×3 (08:13→22:25)
[2019-12-14] MEDS: Saccharomyces boulardii 250 MG CAP PO SCH (09:11)
[2019-12-14] MEDS: PHOS-NAK 1 PKT PACK PO SCH (09:12)
[2019-12-14] MEDS: Simethicone Chewable 80 MG TAB PO SCH ×2 (09:12→20:53)
[2019-12-14] MEDS: Pantoprazole 40 MG VIAL IVP SCH (09:12)
--- NOTE | 2019-12-14 11:55 | PRG ---
DATE OF SERVICE: 12/14/2019 SUBJECTIVE: Ms. Guallpa has been intubated when I saw her in the ICU secondary to effusions and restrictive lung disease. She has quite a bit of metastatic disease to the chest from her breast cancer. It seems that Palliative Care is now involved to some extent, in which she remains on the ventilator. I am asked to see her again regarding constipation, it seems she has not had a bowel movement in several days. She has been on some Reglan for tube feeds and p.r.n. laxatives. OBJECTIVE: VITAL SIGNS: Pulse remains 120s, blood pressure 86/54. She has been afebrile, T-max 100.3 on the 17. GENERAL: She is now intubated and sedated. ABDOMEN: Soft and nontender, slightly protuberant. LABORATORY DATA: White count 8, hemoglobin 7.7, and platelets 73,000. A pH of 7.51, O2 of 55%. Sodium 148, potassium 3.7, BUN and creatinine are 16 and 0.6, calcium 6.5, bilirubin 5.1, AST 71, ALT 11, and alkaline phosphatase 739. ASSESSMENT: 1. Diffusely metastatic breast cancer. 2. Mucositis, improving. 3. Concern for possible HSV mucositis on antibiotics. 4. Severe pain on multiple narcotics for pain control. 5. Constipation and ileus secondary to metastatic cancer and medications. 6. Neutropenic fever, resolved. RECOMMENDATIONS: Would add Senokot S b.i.d. to help her bowels. I do not think that this is overall going to change her prognosis, which is very will follow from a distance. If I can be of any further assistance, please do not hesitate to contact me. Job ID: [id number]
--- NOTE | 2019-12-14 13:10 | PRG ---
DATE OF SERVICE: 12/14/2019 SERVICE: Nephrology. SUBJECTIVE: A 39-year-old female with metastatic breast cancer, requiring bilateral PleurX catheter placement, who is currently intubated and mechanically ventilated. Nephrology is seeing the patient for electrolyte derangements. Chest tube earlier placed for pneumothorax. Post PleurX catheter placement has been removed. The patient, however, is still sedated and mechanically ventilated. OBJECTIVE: VITAL SIGNS: Temperature 98.9, heart rate 123, respiratory rate 26, SpO2 of 93% on 35% FiO2, blood pressure is 110/68, but previously down to 86/48. Intake and output in the last 24 hours showed total intake of 2223 with total output of 3510. GENERAL: Chronically ill-looking female, in no obvious distress. The patient is sedated. HEENT: Normocephalic and atraumatic. ET tube is in place. CARDIOVASCULAR: Regular rhythm and rate, but tachycardic. RESPIRATORY: Ventilator transmitted breath sounds heard in both lung parks, though decreased at both bases. Right-sided chest tube has been removed. GI: Full, soft, nontender, and nondistended. UROGENITAL: Fields catheter is in place, draining urine. EXTREMITIES: Grossly normal looking, atraumatic with no obvious edema or erythema. CANCER RESEARCHER: The patient is sedated. DIAGNOSTIC DATA: CBC showed WBC count of 8.1, hemoglobin of 7.7, MCV of 99.4, platelet of 73. CMP showed sodium 148, potassium 3.7, chloride 111, CO2 of 30, BUN 16, creatinine 0.66, glucose 120, calcium 6.5, phosphorus 2.3, magnesium 1.9. Total bilirubin 5.1, AST 71, ALT 11, alkaline phosphatase 79, total protein 5.4, albumin 2.7, and globulin 2.7. Chest x-ray performed earlier today showed cardiac silhouette dominantly obscured by ill-defined parenchymal opacity scattered throughout each lung. Pulmonary vascular engorgement also is noted. ASSESSMENT: 1. Hypophosphatemia due to poor oral intake. Repleted with supplementation. 2. Hypokalemia, resolved. 3. Hypernatremia: Due to free water deficit. 4. Persistent tachycardia: Due to presumed intravascular contraction despite trace edema from extravasation. 5. Respiratory failure due to pleural effusion as well as parenchymal disease and possibly metastasis. PLAN: 1. We will increase free water flushes from 30 q.4 to 100 mL every 4 hours. 2. We will also decrease crystalloid rate. 3. We will give albumin infusion to expand intravascular space. The patient continued to get diuretics, it is supposed to possibly help pulmonary congestion. Drainage of the pleural space is recommended to facilitate extubation. Further treatment to follow depending on hospital course. Recheck electrolytes in the morning. Job ID: [id number]
--- NOTE | 2019-12-14 14:10 | PDOC.HOSPP ---
- Subjective Encounter Date: 12/14/19 Encounter Time: 11:00 Subjective: d/w family. c/s note reviewed; getting free water for High sodium. PO4 normalized; ilues and constipation. neg DVT on left leg. - Objective Vital Signs & Weight: Vital Signs (12 hours) Temp Pulse Resp BP Pulse Ox 12/14/19 10:56 120 H 86/54 L 12/14/19 10:00 29 H 12/14/19 08:13 123 H 33 H 86/48 L 92 L 12/14/19 08:00 98.9 F 36 H 12/14/19 06:00 35 H 12/14/19 05:00 98.8 F 12/14/19 04:00 32 H 12/14/19 03:00 99.2 F Weight Admit Weight 143 lb 6.4 oz Weight 153 lb 14.122 oz Most Recent Monitor Data Heart Rate from ECG 121 NIBP 90/55 NIBP BP-Mean 66 Respiration from ECG 32 SpO2 92 I&O: 12/13/19 12/14/19 12/15/19 06:59 06:59 06:59 Intake Total 3609.1 2223.4 60 Output Total 4065 3510 410 Balance -455.9 -1286.6 -350 Result Diagrams: 12/14/19 04:30 12/14/19 04:30 Hospitalist ROS - Medication Medications: Active Medications Generic Name Dose Route Start Last Admin Trade Name Freq PRN Reason Stop Dose Admin Acetaminophen 650 mg 12/02/19 19:15 12/10/19 04:22 Tylenol Elixir PO 650 mg Q4H PRN Administration Headache/Fever or Pain (1-3) Bisacodyl 10 mg 12/02/19 18:33 12/08/19 20:15 Dulcolax ND 10 mg DAILYPRN PRN Administration Constipation Hydrocortisone/Pramoxine 1 gm 12/05/19 11:02 12/05/19 13:27 Analpram Hc ND 12/15/19 11:02 1 applic TID PRN Administration Topical Anesthetic Meropenem 1 gm/ Device 50 mls @ 100 mls/hr 12/08/19 22:00 12/14/19 05:03 IVPB 50 mls Q8HR ODILON Administration Potassium Phosphate 9 mmol/ 103 mls @ 25.75 mls/hr 12/09/19 07:31 12/09/19 22 :03 Sodium Chloride IVPB 103 mls ASDIR PRN Administration Phosphate 1.0-1.8 Norepinephrine Bitartrate 250 mls @ 0 mls/hr 12/09/19 12:14 12/09/19 20:22 Levophed IVPB 250 mls PRN PRN Administration To maintain MAP > 65 Protocol Titrate Fentanyl Citrate 2,000 mcg/ 100 mls @ 0 mls/hr 12/09/19 12:22 12/14/19 01:32 Sodium Chloride IV 01/08/20 12:22 100 mls INF ODILON Administration Protocol Per Protocol Midazolam HCl 100 mls @ 0 mls/hr 12/13/19 13:00 12/14/19 01:34 Versed IVPB 100 mls INF ODILON Administration Protocol Titrate Potassium Chloride/Sodium Chloride 1,000 mls @ 40 mls/hr 12/13/19 13:30 12/13 06:08 1/2 Ns W/Kcl 20 Meq IV 1,000 mls .Q24H ODILON Administration Levalbuterol HCl 0.63 mg 12/04/19 15:11 12/14/19 08:13 Xopenex NEB 0.63 mg [id number] ODILON Administration Lorazepam 2 mg 12/09/19 12:22 12/12/19 08:45 Ativan SLOW IVP 01/08/20 12:22 2 mg Q1H PRN Administration Breakthrough agitation Metoclopramide HCl 10 mg 12/11/19 17:00 12/14/19 12:06 Reglan IVP 10 mg Q6H ODILON Administration Mineral Oil/White Petrolatum 0 gm 12/04/19 14:04 12/04/19 14:49 Aquaphor 99 Gm TOP 1 applic PRN PRN Administration SKIN Miscellaneous Medication 0 gm 12/03/19 20:54 12/12/19 09:22 Preparation H Ointment TOP 1 appful TIDPRN PRN Administration Hemorrhoids Miscellaneous Medication 1 pkt 12/09/19 07:31 12/12/19 21:00 Phos-Nak PO 1 pkt TIDPRN PRN Administration FOR PHOS LEVEL 1.0 - 1.8 Miscellaneous Medication 2 pkt 12/13/19 09:00 12/14/19 09:12 Phos-Nak PO 2 pkt BID ODILON Administration Pantoprazole Sodium 40 mg 12/06/19 09:00 12/14/19 09:12 Protonix IVP 40 mg DAILY ODILON Administration Potassium Chloride 40 meq 12/09/19 07:31 12/13/19 05:48 Klor-Con PER TUBE 40 meq ASDIR PRN Administration FOR SERUM K+ 2.5-3.5 Propofol 1,000 mg 12/09/19 12:22 12/14/19 06:08 Diprivan IV 01/08/20 12:22 1,000 mg INF PRN Administration TO ACHIEVE GOAL RASS Protocol Saccharomyces Boulardii 250 mg 12/03/19 09:00 12/14/19 09:11 Florastor PO 250 mg DAILY ODILON Administration Simethicone 80 mg 12/08/19 21:00 12/14/19 09:12 Mylicon Chewable PO 80 mg BID ODILON Administration Sodium Chloride 10 ml 12/02/19 09:00 12/14/19 09:12 Flush - Normal Saline IVF 10 ml Q12HR ODILON Administration Sodium Chloride 10 ml 12/02/19 01:25 12/11/19 22:57 Flush - Normal Saline IVF 10 ml PRN PRN Administration Saline Flush Sodium Chloride 10 ml 12/05/19 20:22 12/06/19 11:40 Normal Saline Pf FS 10 ml PRN PRN Administration RECONSTITUTION - Exam General Appearance: ill appearing ENT: normocephalic atraumatic Respiratory: normal chest expansion, rales Gastrointestinal: soft, diminished bowl sounds Neurological: no focal deficits Hosp A/P - Plan (1) Acute and chronic respiratory failure with hypoxia Code(s): J96.21 - ACUTE AND CHRONIC RESPIRATORY FAILURE WITH HYPOXIA Status: Acute (2) Malignant pleural effusion Code(s): J91.0 - MALIGNANT PLEURAL EFFUSION Status: Acute (3) Mucositis (ulcerative) due to antineoplastic therapy Code(s): K12.31 - ORAL MUCOSITIS (ULCERATIVE) DUE TO ANTINEOPLASTIC THERAPY Status: Acute (4) Neutropenic fever Code(s): D70.9 - NEUTROPENIA, UNSPECIFIED; R50.81 - FEVER PRESENTING WITH CONDITIONS CLASSIFIED ELSEWHERE Status: Acute (5) Hypertension Code(s): I10 - ESSENTIAL (PRIMARY) HYPERTENSION Status: Acute Qualifiers: Hypertension type: essential hypertension Qualified Code(s): I10 - Essential (primary) hypertension (6) Stage IV carcinoma of breast Code(s): C50.919 - MALIGNANT NEOPLASM OF UNSP SITE OF UNSPECIFIED FEMALE BREAST Status: Chronic - Plan * Acute on chronic respiratory failure- due to malignant pleural effusion on the right. She is s/p PleurX catheter on the right. She has existing PleurX catheter on the left * Neutropenic fever- Continue Meropenem, Vancomycin, Micafungin, and Acyclovir * Severe anemia- likely related to chemotherapy- transfuse as needed * Thrombocytopenia- due to chemotherapy * Liver function tests have vijay stable * HTN- blood pressure is stable * Hypokalemia and Hypophosphatemia- * Symptom Management * * Hypophosphatemia * --being replaced -fuentes - veróncia uigatito - on TF sub med cath/port --not accessed currently. Full code Mild hypernatremia --getting free water Hypophostamia --improving, since consistently low, scheduled bid doses, will dc once PO4 > 2 --> normalized--will dc schedule ones i did y'day and keep PRN replacement --dr. Bourgeois following with us Acute blood loss anemia --hgb dropped from 10.5 to 7.8 - rpt level 7.9 - no overt bleed, dilutional? - transfuse if hgb < 7 -close monitor---7.7 on constipatioin /Ileus --stool softeners. --with TF, expected to have loose stools. b/l thoracotomy tubes--connected w.. chest tube.-----> likely to be removed after extubation. Aprpeciate all consults hlep.
[2019-12-14] MEDS: Albumin 25% 25 GM/100 ML BOT IVPB SCH ×2 (14:16→21:00)
--- NOTE | 2019-12-14 14:20 | PRG ---
DATE OF SERVICE: 12/14/2019 SUBJECTIVE: The patient is still unable to be extubated. She gets tachycardic and tachypneic any time there is any attempt at decreasing the amount of support. She is not having fever anymore, last temperature was about two days ago at 100.3. OBJECTIVE: VITAL SIGNS: BP 86/54. FiO2 of 50 and O2 saturation 92. GENERAL: She is sedated. LUNGS: Bilateral lung sounds with basilar crackles. Chest tube removed. HEART: Tachycardia, S1 and S2. ABDOMEN: Not distended. Could not evaluate her appendicular structure motility. LABORATORY DATA: Sodium 148, creatinine 0.66. White cell count 8.1, hemoglobin 7.7, platelets 81. Chest x-ray with diffuse bilateral infiltrates. Chest tube has been removed. ASSESSMENT: Metastatic breast cancer to liver, lungs, and bone; respiratory failure; resolved fever; resolved neutropenia. It looks like she is never going to be able to be extubated successfully due to the extent of lung metastatic involvement, so now the interventions will depend on family's decision. Job ID: [id number]
--- NOTE | 2019-12-14 17:34 | PRG ---
DATE OF SERVICE: 12/14/2019 SUBJECTIVE: Melissa Guallpa remains sedated for ventilation. She is on 3 drugs. OBJECTIVE: VITAL SIGNS: Heart rate is 119, blood pressure 88/54, respiratory rates in the 20s. LUNGS: Unchanged. HEART: Unchanged. ABDOMEN: Unchanged. Compliance calculated is static 16. I have explained to her brother who is a online advertising director, what this means with regard to work with breathing. LABORATORY DATA: White count is 8.1, hemoglobin 7.7, and platelets 73,000. Sodium 148, potassium 3.7, chloride 111, bicarb 30, BUN 16, and creatinine 0.66. I suspect her sodium and chloride are going up because she is dumping free water into the pleural space. IMPRESSION: Metastatic breast cancer with severe lung compliance issues, will prevent weaning. The only way she might even come close to weaning from mechanical ventilation would be a tracheostomy, which I did not recommend. I did discuss it with her. Critical care time 30 min. Job ID: [id number] MTDD
[2019-12-14] MEDS: Senokot S 8.6-50 MG TAB PO SCH (20:53)
[2019-12-15] MEDS: fentaNYL Citrate/PF 2,000 MCG in Sodium Chloride 0.9% 60 ML IV SCH ×2 (03:29→15:14)
[2019-12-15] MEDS: 1/2 NS w/KCL 20 mEq 1,000 ML IV SCH (04:06)
[2019-12-15 04:54] LABS: Band 27 % (5-11); Hemoglobin 7.6 g/dL (12.0-16.0); Lymphocytes 17 % (21-51); MDiff Complete? YES; Mean Corpuscular HGB CONC 31.8 g/dL (32.0-36.0); Mean Corpuscular Hemoglobin 31.6 pg (27.0-31.0); Mean Corpuscular Volume 99.5 fL (78.0-98.0); Mean Platelet Volume 10.5 fL (7.4-10.4); Metamyelocyte 2 % (0-0); Monocytes 7 % (0-10); Myelocyte 2 % (0-0); Neutrophil 45 % (42-75); Nucleated RBC 9 % (0); Platelet Count 72 thou/uL (130-400); Platelet Morphology Comment Appears Decreased; RBC Distribution Width 21.2 % (11.5-14.5); Red Blood Cell (RBC) Count 2.39 mill/uL (4.20-5.40); White Blood Cell (WBC) Count 7.7 thou/uL (4.8-10.8)
[2019-12-15 04:56] LABS: ALT (SGPT) 11 U/L (8-55); AST (SGOT) 85 U/L (5-34); Albumin 3.1 g/dL (3.5-5.0); Alkaline Phosphatase 749 U/L (40-110); Anion Gap 13 mmol/L (10-20); BUN (Urea Nitrogen) 16 mg/dL (7.0-18.7); Bilirubin, Total 5.4 mg/dL (0.2-1.2); Calc. Creatinine Clearance 120 mL/min (70-130); Calcium 6.5 mg/dL (7.8-10.44); Carbon Dioxide 29 mmol/L (22-29); Chloride 111 mmol/L (98-107); Estimated GFR-MDRD Greater than 90; Globulin 2.7 g/dL (2.4-3.5); Glucose 99 mg/dL (70-105); Potassium 3.9 mmol/L (3.5-5.1); Protein, Total 5.8 g/dL (6.0-8.3); Sodium 149 mmol/L (136-145)
[2019-12-15] MEDS: Albumin 25% 25 GM/100 ML BOT IVPB SCH (05:28)
[2019-12-15] MEDS: Metoclopramide HCl 10 MG/2 ML VIAL IVP SCH ×4 (05:28→23:27)
[2019-12-15] MEDS: MEROPENEM 1 GM/50 ML 1 GM in Premix Bag 1 BAG IVPB SCH ×3 (05:28→21:51)
[2019-12-15 07:18] LABS: Phosphorus 2.6 mg/dL (2.3-4.7)
--- NOTE | 2019-12-15 07:54 | RAD ---
SINGLE VIEW OF THE CHEST: COMPARISON: 12/14/2019. HISTORY: Ventilated patient with respiratory failure. FINDINGS: A single view of the chest shows a normal-size cardiomediastinal silhouette. The lines and tubes are unchanged in position. Airspace opacities project over both lower lobes, unchanged. No pneumothora x is seen. IMPRESSION: Stable exam. POS: LILIANEA
[2019-12-15] MEDS: Levalbuterol HCl 0.63 MG/3 ML NEB NEB SCH ×3 (08:00→22:36)
[2019-12-15] MEDS: methylPREDNISolone Sod Succ/PF 125 MG/2 ML VIAL IVP SCH (08:28)
[2019-12-15] MEDS: Pantoprazole 40 MG VIAL IVP SCH (08:31)
[2019-12-15] MEDS: Senokot S 8.6-50 MG TAB PO SCH ×2 (08:32→21:51)
[2019-12-15] MEDS: Simethicone Chewable 80 MG TAB PO SCH ×2 (08:33→21:51)
[2019-12-15] MEDS: Saccharomyces boulardii 250 MG CAP PO SCH (08:33)
--- NOTE | 2019-12-15 08:47 | PRG ---
DATE OF SERVICE: 12/15/2019 Overall, the patient appears stable. She is sedated on the ventilator with a heart rate of about 115, sinus rhythm. Her blood pressure is about 90 and her infusions continued to be for sedation. Chest x-ray continues to show opacity in both sides, and her PleurX was drained yesterday on the left with only 150 mL. Her chest tube was removed on the right yesterday, and she is to have her PleurX drained on the right today. Overall, there has been no significant improvement. She is continuing to get nutrition via her NG tube as tolerated by her residuals. Her prognosis remains poor. She has respiratory failure that cannot be attributed to her pleural effusions, which seem to be minimal suggesting either infiltrated pulmonary disease from her breast cancer or constrictive disease from her effusions being present for a good period of time. In any event, prognosis for extubation is poor. Job ID: [id number]
--- NOTE | 2019-12-15 09:10 | PRG ---
DATE OF SERVICE: 12/15/2019 SERVICE: Nephrology. SUBJECTIVE: A 39-year-old female with metastatic breast cancer, admitted due to febrile neutropenia. The patient subsequently developed respiratory failure requiring intubation. Nephrology is seeing the patient for electrolyte derangements. The patient is still intubated and mechanically ventilated. OBJECTIVE: VITAL SIGNS: Temperature 99.4, heart rate 117, respiratory rate between 20 to 39, SpO2 of 91% on FiO2 of 60%, blood pressure is 104/74. I and O in the last 24 hours showed total intake of 2473 with total output of 1290. GENERAL: Female, in no obvious distress. The patient is sedated. HEENT: Normocephalic, atraumatic. ET tube is in place. NECK: No JVD appreciated. CARDIOVASCULAR: Regular rhythm and rate, but tachycardic. RESPIRATORY: Ventilator transmitted breath sounds noted, decreased at the bases. GASTROINTESTINAL: Full, soft, nontender, and nondistended with normal bowel sounds. UROGENITAL: Fields catheter is in place draining urine. EXTREMITIES: Grossly normal looking and atraumatic with no obvious edema. CENTRAL NERVOUS SYSTEM: The patient is sedated. DIAGNOSTIC DATA: CBC showed WBC count of 7.7, hemoglobin of 7.6, platelet of 72. Chemistry showed sodium 149, potassium 3.9, chloride 111, CO2 of 29, BUN 16, creatinine 0.70, glucose 99, calcium 6.5, phosphorus 2.6, total bilirubin 5.4. AST 85, ALT 11, alkaline phosphatase 749, total protein 5.8, albumin 3.1, globulin 2.7. Chest x-ray today showed unchanged airspace opacities over both lower lobes. ASSESSMENT: 1. Hypernatremia: Due to free water deficit. Sodium is up from 148 yesterday to 149. 2. Hypokalemia, repleted. 3. Hypophosphatemia, repleted. 4. Volume status: The patient is euvolemic if not dry. 5. Acute respiratory failure: Treatment as per academic affairs specialist. PLAN: 1. We will change the IV fluid to KVO. 2. We will increase free water flush from 100 mL every 6 hours to 200 mL every 4 hours. 3. We will recheck electrolytes in the morning. Further treatment to follow depending on hospital course. Other treatment as per other specialties. Job ID: [id number]
[2019-12-15] MEDS ORDERED: Potassium Chloride 40 MEQ in Dextrose 5% in Water 1,000 ML IV SCH (10:15)
[2019-12-15] MEDS: Potassium Chloride 40 MEQ in Dextrose 5% in Water 1,000 ML IV SCH (12:00)
--- NOTE | 2019-12-15 12:31 | PDOC.HOSPP ---
- Subjective Encounter Date: 12/15/19 Encounter Time: 10:20 Subjective: pt remained on vent, stable. ; Na still high, HR in 110s on the monitor. urine is quite dark. - Objective Vital Signs & Weight: Vital Signs (12 hours) Temp Pulse Resp BP Pulse Ox 12/15/19 11:04 120 H 114/64 12/15/19 10:00 39 H 12/15/19 08:00 99.4 F 113 H 44 H 92 L 12/15/19 06:00 29 H 12/15/19 04:00 99.4 F 28 H 12/15/19 02:00 28 H Weight Admit Weight 143 lb 6.4 oz Weight 158 lb 4.67 oz Most Recent Monitor Data Heart Rate from ECG 119 NIBP 114/64 NIBP BP-Mean 80 Respiration from ECG 35 SpO2 94 I&O: 12/14/19 12/15/19 12/16/19 06:59 06:59 06:59 Intake Total 2223.4 2473.4 Output Total 3510 1390 280 Balance -1286.6 1083.4 -280 Result Diagrams: 12/15/19 04:10 12/15/19 04:10 Hospitalist ROS - Medication Medications: Active Medications Generic Name Dose Route Start Last Admin Trade Name Freq PRN Reason Stop Dose Admin Acetaminophen 650 mg 12/02/19 19:15 12/10/19 04:22 Tylenol Elixir PO 650 mg Q4H PRN Administration Headache/Fever or Pain (1-3) Bisacodyl 10 mg 12/02/19 18:33 12/08/19 20:15 Dulcolax IN 10 mg DAILYPRN PRN Administration Constipation Meropenem 1 gm/ Device 50 mls @ 100 mls/hr 12/08/19 22:00 12/15/19 05:28 IVPB 50 mls Q8HR ODILON Administration Potassium Phosphate 9 mmol/ 103 mls @ 25.75 mls/hr 12/09/19 07:31 12/09/19 22 :03 Sodium Chloride IVPB 103 mls ASDIR PRN Administration Phosphate 1.0-1.8 Norepinephrine Bitartrate 250 mls @ 0 mls/hr 12/09/19 12:14 12/09/19 20:22 Levophed IVPB 250 mls PRN PRN Administration To maintain MAP > 65 Protocol Titrate Fentanyl Citrate 2,000 mcg/ 100 mls @ 0 mls/hr 12/09/19 12:22 12/15/19 03:29 Sodium Chloride IV 01/08/20 12:22 100 mls INF ODILON Administration Protocol Per Protocol Midazolam HCl 100 mls @ 0 mls/hr 12/13/19 13:00 12/15/19 03:29 Versed IVPB 100 mls INF ODILON Administration Protocol Titrate Levalbuterol HCl 0.63 mg 12/04/19 15:11 12/15/19 08:00 Xopenex NEB 0.63 mg [id number] ODILON Administration Lidocaine/Prilocaine 5 gm 12/02/19 13:06 12/14/19 20:54 Emla 2.5% TOP 1 applic PRN PRN Administration INJECTION SITE Lorazepam 2 mg 12/09/19 12:22 12/12/19 08:45 Ativan SLOW IVP 01/08/20 12:22 2 mg Q1H PRN Administration Breakthrough agitation Methylprednisolone Sodium Succinate 80 mg 12/15/19 09:00 12/15/19 08:28 Solu-Medrol IVP 80 mg DAILY ODILON Administration Metoclopramide HCl 10 mg 12/11/19 17:00 12/15/19 11:27 Reglan IVP 10 mg Q6H ODILON Administration Mineral Oil/White Petrolatum 0 gm 12/04/19 14:04 12/04/19 14:49 Aquaphor 99 Gm TOP 1 applic PRN PRN Administration SKIN Miscellaneous Medication 0 gm 12/03/19 20:54 12/12/19 09:22 Preparation H Ointment TOP 1 appful TIDPRN PRN Administration Hemorrhoids Miscellaneous Medication 1 pkt 12/09/19 07:31 12/12/19 21:00 Phos-Nak PO 1 pkt TIDPRN PRN Administration FOR PHOS LEVEL 1.0 - 1.8 Pantoprazole Sodium 40 mg 12/06/19 09:00 12/15/19 08:31 Protonix IVP 40 mg DAILY ODILON Administration Potassium Chloride 40 meq 12/09/19 07:31 12/13/19 05:48 Klor-Con PER TUBE 40 meq ASDIR PRN Administration FOR SERUM K+ 2.5-3.5 Propofol 1,000 mg 12/09/19 12:22 12/14/19 20:55 Diprivan IV 01/08/20 12:22 1,000 mg INF PRN Administration TO ACHIEVE GOAL RASS Protocol Saccharomyces Boulardii 250 mg 12/03/19 09:00 12/15/19 08:33 Florastor PO 250 mg DAILY ODILON Administration Senna/Docusate Sodium 1 tab 12/14/19 21:00 12/15/19 08:32 Senokot S PO 1 tab BID ODILON Administration Simethicone 80 mg 12/08/19 21:00 12/15/19 08:33 Mylicon Chewable PO 80 mg BID ODILON Administration Sodium Chloride 10 ml 12/02/19 09:00 12/15/19 08:34 Flush - Normal Saline IVF 10 ml Q12HR ODILON Administration Sodium Chloride 10 ml 12/02/19 01:25 12/15/19 08:33 Flush - Normal Saline IVF 10 ml PRN PRN Administration Saline Flush Sodium Chloride 10 ml 12/05/19 20:22 12/06/19 11:40 Normal Saline Pf FS 10 ml PRN PRN Administration RECONSTITUTION - Exam General Appearance: ill appearing General - other findings: on vent ENT: normocephalic atraumatic Neck: supple Heart: RRR Respiratory: normal chest expansion, rales, rhonchi, tachypneic Gastrointestinal: soft, normal bowel sounds, distended Gastrointestinal - other findings: TF Neurological: no focal deficits Hosp A/P - Plan (1) Acute and chronic respiratory failure with hypoxia Code(s): J96.21 - ACUTE AND CHRONIC RESPIRATORY FAILURE WITH HYPOXIA Status: Acute (2) Malignant pleural effusion Code(s): J91.0 - MALIGNANT PLEURAL EFFUSION Status: Acute (3) Mucositis (ulcerative) due to antineoplastic therapy Code(s): K12.31 - ORAL MUCOSITIS (ULCERATIVE) DUE TO ANTINEOPLASTIC THERAPY Status: Acute (4) Neutropenic fever Code(s): D70.9 - NEUTROPENIA, UNSPECIFIED; R50.81 - FEVER PRESENTING WITH CONDITIONS CLASSIFIED ELSEWHERE Status: Acute (5) Hypertension Code(s): I10 - ESSENTIAL (PRIMARY) HYPERTENSION Status: Acute Qualifiers: Hypertension type: essential hypertension Qualified Code(s): I10 - Essential (primary) hypertension (6) Stage IV carcinoma of breast Code(s): C50.919 - MALIGNANT NEOPLASM OF UNSP SITE OF UNSPECIFIED FEMALE BREAST Status: Chronic - Plan * Acute on chronic respiratory failure- due to malignant pleural effusion on the right. She is s/p PleurX catheter on the right. She has existing PleurX catheter on the left * Neutropenic fever- Continue Meropenem, Vancomycin, Micafungin, and Acyclovir * Severe anemia- likely related to chemotherapy- transfuse as needed * Thrombocytopenia- due to chemotherapy * Liver function tests have vijay stable * HTN- blood pressure is stable * Hypokalemia and Hypophosphatemia- * Symptom Management * * Hypophosphatemia * --being replaced -fuentes - verónica uine - on TF sub med cath/port --not accessed currently. Full code Mild hypernatremia --getting free water Hypophostamia --improving, since consistently low, scheduled bid doses, will dc once PO4 > 2 --> normalized--will dc schedule ones i did y'day and keep PRN replacement --dr. Bourgeois following with us Acute blood loss anemia --hgb dropped from 10.5 to 7.8 - rpt level 7.9 - no overt bleed, dilutional? - transfuse if hgb < 7 -close monitor---7.7 on constipatioin /Ileus --stool softeners. --with TF, expected to have loose stools. b/l thoracotomy tubes--connected w.. chest tube.-----> likely to be removed after extubation. Aprpeciate all consults hlep. Metastatic breast ca with pulmonary involvement chronic sinus tachycardia -- concern for Constrictive process [restrictive CMY or constrictive pericarditis with metastatic breast ca. --will get 2 D echo. Hypernatremia -- will hold 1/2 NS for now and free water increased. -checking BMP around 3pm. hgb remained stable between 7 &8. will follow with NH3, TSH and lipase ordered today. methylprednisolone, fentanyl -off vanc and cw merum . --lidia neg incld central line/fem venin -- no growth. u ildia of 7th - no growth. Moderate pl effusion, and cont'd to have b/l opacification - cxr tolerating TF. D
[2019-12-15] MEDS ORDERED: Fleet Enema 133 ML BOT PR SCH (14:15)
[2019-12-15 15:29] LABS: Anion Gap 14 mmol/L (10-20); BUN (Urea Nitrogen) 16 mg/dL (7.0-18.7); Calc. Creatinine Clearance 127 mL/min (70-130); Calcium 6.5 mg/dL (7.8-10.44); Carbon Dioxide 27 mmol/L (22-29); Chloride 110 mmol/L (98-107); Estimated GFR-MDRD Greater than 90; Glucose 172 mg/dL (70-105); Potassium 3.8 mmol/L (3.5-5.1); Sodium 147 mmol/L (136-145)
--- NOTE | 2019-12-15 17:45 | PRG ---
DATE OF SERVICE: 12/15/2019 SUBJECTIVE: The patient has not improved. Her brother wanted sedation held. In my opinion and in the nursing opinion, this would be cruel. She does not tolerate decreases in sedation, becomes extremely anxious and tachypneic. OBJECTIVE: VITAL SIGNS: Heart rate is 115, blood pressure 104/60, and respiratory rates in the teens. LUNGS: Remarkable for clear anterior breath sounds. HEART: Regular rhythm. ABDOMEN: Soft. Still lung static compliance is about 15. Brother wanted me to start her on steroids believing that possibly this respiratory failure is related to a chemo side effect. I explained to him that this is extremely unlikely, but was willing to try it more for him than for her. LABORATORY DATA: White count today is 7.7, hemoglobin 7.6, and platelets 45,000. Sodium 147, potassium 3.8, chloride 110, bicarb 27, BUN 16, and creatinine 0.68. IMPRESSION AND PLAN: End-stage breast cancer, widely metastatic with extremely poor lung compliance, not weanable in my opinion. Job ID: [id number]
[2019-12-16] MEDS: fentaNYL Citrate/PF 2,000 MCG in Sodium Chloride 0.9% 60 ML IV SCH ×2 (04:50→17:00)
[2019-12-16] MEDS: Metoclopramide HCl 10 MG/2 ML VIAL IVP SCH ×4 (04:51→23:04)
[2019-12-16] MEDS: Propofol 1,000 MG/100 ML VIAL IV PRN (04:51)
[2019-12-16 04:58] LABS: Band 16 % (5-11); Hemoglobin 7.5 g/dL (12.0-16.0); Hypochromia SLIGHT = 6-15 cells (100X) (0-5/hpf); Lymphocytes 10 % (21-51); MDiff Complete? YES; Mean Corpuscular Hemoglobin 31.6 pg (27.0-31.0); Mean Corpuscular Volume 98.9 fL (78.0-98.0); Mean Platelet Volume 7.2 fL (7.4-10.4); Metamyelocyte 2 % (0-0); Monocytes 8 % (0-10); Neutrophil 64 % (42-75); Nucleated RBC 2 % (0); Platelet Count 91 thou/uL (130-400); Platelet Morphology Comment Appears Adequate; RBC Distribution Width 21.2 % (11.5-14.5); Red Blood Cell (RBC) Count 2.38 mill/uL (4.20-5.40); White Blood Cell (WBC) Count 8.2 thou/uL (4.8-10.8)
[2019-12-16] MEDS: MEROPENEM 1 GM/50 ML 1 GM in Premix Bag 1 BAG IVPB SCH ×3 (05:00→23:04)
[2019-12-16 05:02] LABS: ALT (SGPT) 10 U/L (8-55); AST (SGOT) 72 U/L (5-34); Albumin 3.1 g/dL (3.5-5.0); Alkaline Phosphatase 686 U/L (40-110); Anion Gap 14 mmol/L (10-20); BUN (Urea Nitrogen) 17 mg/dL (7.0-18.7); Calc. Creatinine Clearance 135 mL/min (70-130); Calcium 6.4 mg/dL (7.8-10.44); Carbon Dioxide 27 mmol/L (22-29); Chloride 110 mmol/L (98-107); Estimated GFR-MDRD Greater than 90; Globulin 2.9 g/dL (2.4-3.5); Glucose 157 mg/dL (70-105); Potassium 3.8 mmol/L (3.5-5.1); Sodium 147 mmol/L (136-145)
[2019-12-16] MEDS: Levalbuterol HCl 0.63 MG/3 ML NEB NEB SCH ×3 (07:36→21:53)
--- NOTE | 2019-12-16 07:54 | RAD ---
RADIOGRAPH CHEST 1 VIEW: DATE: 12/16/2019 TIME: 5:46 AM HISTORY: Respiratory failure COMPARISON: 12/15/2019 FINDINGS: No change in left support lines. Severe bilateral alveolar infiltrates, right worse than left. The ri ght-sided consolidation appears slightly larger and more dense than yesterday. This could be due to patient positioning. No pneumothorax. No other potential interval change. IMPRESSION: No definite interval change
[2019-12-16] MEDS: Pantoprazole 40 MG VIAL IVP SCH (08:45)
[2019-12-16] MEDS: Simethicone Chewable 80 MG TAB PO SCH ×2 (08:52→21:14)
[2019-12-16] MEDS: Bisacodyl 10 MG SUPP PR PRN (08:53)
[2019-12-16] MEDS: methylPREDNISolone Sod Succ/PF 125 MG/2 ML VIAL IVP SCH (08:53)
[2019-12-16] MEDS: Saccharomyces boulardii 250 MG CAP PO SCH (08:53)
[2019-12-16] MEDS: Senokot S 8.6-50 MG TAB PO SCH ×2 (08:53→21:14)
--- NOTE | 2019-12-16 09:51 | PRG ---
DATE OF SERVICE: 12/16/2019 SUBJECTIVE: Melissa Guallpa is clinically unchanged as expected. OBJECTIVE: VITAL SIGNS: Heart rate is 103, blood pressure 90/62, and respiratory rate is 30 on phenomenal doses of sedation. GENERAL: She will awaken and nod. Her brother wants all sedation turned off. This is not an option because she becomes extremely tachypneic. We have an inability to ventilate her when she is that tachypneic and it is quite possible that she would code before we can get her sedated and mechanically ventilated again. He also wants her to have an enema today. I do not feel that is appropriate. Her abdominal distention is all related to abdominal metastatic disease and not entirely related to constipation as he would like to believe. LUNGS: Unchanged. HEART: Unchanged. ABDOMEN: Unchanged. IMAGING DATA: Her chest x-ray is unchanged. LABORATORY DATA: White count is 8.2, hemoglobin 7.5, and platelets 64,000. Sodium 147, potassium 3.8, chloride 110, bicarb 27, BUN 17, and creatinine 0.64. IMPRESSION AND PLAN: Respiratory failure secondary to end-stage metastatic breast cancer. She is not weanable from mechanical ventilation. Job ID: [id number]
[2019-12-16] MEDS ORDERED: Vecuronium 10 MG VIAL IVP SCH (10:30)
[2019-12-16] MEDS ORDERED: Vecuronium 10 MG VIAL ONE (10:40)
--- NOTE | 2019-12-16 12:06 | PRG ---
DATE OF SERVICE: 12/16/2019 I was asked by Dr. Castelan to give her opinion regarding the pulmonary status of Melissa. Her records were reviewed in detail. I reviewed her chest x-ray. I also examined the patient at bedside. The patient has end-stage metastatic breast cancer. She has bilateral drainage catheters in place in her chest for resistant pleural effusions. She has been on mechanical ventilation for quite some time. Her ventilator status shows very poor compliance. I paralyzed the patient with 10 mg of Norcuron and measure her compliance by performing an inspiratory pause maneuver. Static compliance was measured at 17 on 3 separate occasions. I then performed a recruiting maneuver for 15 minutes. This consisted of ventilating her with high pressure of 40 and a low pressure of 20 with an I:E ratio of 4:1 with a total inspiratory time of about 4 seconds. With that, her O2 saturation improved from 94% to 98%, and then she was placed back in a standard bilevel mode. Overall, it would appear that her compliance is poor secondary to breast cancer. I am not sure how much of this is due to residual effusion or due to parenchymal lung disease. Given the circumstances, her prognosis is very grave. Job ID: [id number]
--- NOTE | 2019-12-16 13:05 | CT ---
CT CHEST WITHOUT IV CONTRAST: INDICATION: Shortness of breath. Followup infiltrates. Assess for effusions versus lymphangitic spread. There is a history of breast cancer with liver and bone metastasis. Correlation is made to a recent chest film. Comparison is made to the prior chest CT of 09/23/2019. FINDINGS: There has been decrease in size of the bilateral effusions when compared to 09/23/2019. Small bilater al effusions remain, slightly larger on the left. Diffuse bilateral alveolar airspace opacities are seen throughout both lungs. These are associated w ith areas of dense consolidation with surrounding areas of ground-glass opacity. There are focal are as of infiltrate seen in the left upper lung, peripheral left mid lung, and left lower lobe. Focal a reas of opacities scattered throughout all lobes of the right lung with dense consolidation and air b ronchograms seen in the perihilar regions bilaterally, very prominent in the right lower lobe. The i nterstitial markings do not appear significantly increased. Findings are more suggestive of diffuse infectious airspace etiology rather than lymphangitic spread of neoplasm. Mediastinum unremarkable. Central line has tip in the SVC. ET tube is adequately positioned. An NG tube is in place. Images through the upper abdomen again showed numerous hepatic lesions consistent with the history of hepatic metastasis. The osseous windows again show diffuse mottled sclerotic density involving all osseous structures ind icating diffuse osseous metastatic disease. IMPRESSION: 1. Diffuse airspace disease involving both lungs with small bilateral effusions as described above. 2. Hepatic and osseous metastatic disease again noted. POS: AGW
[2019-12-16] MEDS: Potassium Chloride 40 MEQ in Dextrose 5% in Water 1,000 ML IV SCH (14:30)
--- NOTE | 2019-12-16 14:34 | PDOC.HOSPP ---
- Subjective Encounter Date: 12/16/19 Encounter Time: 10:20 Subjective: pt's sister at bedside, pt has less swelling on her LE; talk to RN, pt had BM y'day after enema, and she had bm this am, so will keep enema PRN only. talk to Dr. Matt. - Objective Vital Signs & Weight: Vital Signs (12 hours) Temp Pulse Resp BP Pulse Ox 12/16/19 14:00 28 H 12/16/19 13:40 92 12/16/19 12:00 37 H 12/16/19 11:13 113 H 12/16/19 11:00 97.9 F 12/16/19 10:00 26 H 12/16/19 08:00 97.8 F 25 H 96 12/16/19 07:36 103 H 98/64 12/16/19 06:00 22 H 12/16/19 04:00 22 H Weight Admit Weight 143 lb 6.4 oz Weight 164 lb 10.965 oz Most Recent Monitor Data Heart Rate from ECG 88 NIBP 109/70 NIBP BP-Mean 83 Respiration from ECG 20 SpO2 98 I&O: 12/15/19 12/16/19 12/17/19 06:59 06:59 06:59 Intake Total 2473.4 4442.6 1685 Output Total 1390 1085 510 Balance 1083.4 3357.6 1175 Result Diagrams: 12/16/19 03:30 12/16/19 03:30 Hospitalist ROS - Medication Medications: Active Medications Generic Name Dose Route Start Last Admin Trade Name Freq PRN Reason Stop Dose Admin Acetaminophen 650 mg 12/02/19 19:15 12/10/19 04:22 Tylenol Elixir PO 650 mg Q4H PRN Administration Headache/Fever or Pain (1-3) Bisacodyl 10 mg 12/02/19 18:33 12/16/19 08:53 Dulcolax MT 10 mg DAILYPRN PRN Administration Constipation Meropenem 1 gm/ Device 50 mls @ 100 mls/hr 12/08/19 22:00 12/16/19 14:29 IVPB 50 mls Q8HR ODILON Administration Potassium Phosphate 9 mmol/ 103 mls @ 25.75 mls/hr 12/09/19 07:31 12/09/19 22 :03 Sodium Chloride IVPB 103 mls ASDIR PRN Administration Phosphate 1.0-1.8 Norepinephrine Bitartrate 250 mls @ 0 mls/hr 12/09/19 12:14 12/09/19 20:22 Levophed IVPB 250 mls PRN PRN Administration To maintain MAP > 65 Protocol Titrate Fentanyl Citrate 2,000 mcg/ 100 mls @ 0 mls/hr 12/09/19 12:22 12/16/19 04:50 Sodium Chloride IV 01/08/20 12:22 100 mls INF ODILON Administration Protocol Per Protocol Midazolam HCl 100 mls @ 0 mls/hr 12/13/19 13:00 12/16/19 04:53 Versed IVPB 100 mls INF ODILON Administration Protocol Titrate Potassium Chloride 40 meq/ 1,020 mls @ 25 mls/hr 12/15/19 12:00 12/16/19 14: 30 Dextrose/Water IV 1,020 mls .Q24H ODILON Administration Levalbuterol HCl 0.63 mg 12/04/19 15:11 12/16/19 07:36 Xopenex NEB 0.63 mg [id number] ODILON Administration Lidocaine/Prilocaine 5 gm 12/02/19 13:06 12/14/19 20:54 Emla 2.5% TOP 1 applic PRN PRN Administration INJECTION SITE Lorazepam 2 mg 12/09/19 12:22 12/12/19 08:45 Ativan SLOW IVP 01/08/20 12:22 2 mg Q1H PRN Administration Breakthrough agitation Methylprednisolone Sodium Succinate 80 mg 12/15/19 09:00 12/16/19 08:53 Solu-Medrol IVP 80 mg DAILY ODILON Administration Metoclopramide HCl 10 mg 12/11/19 17:00 12/16/19 11:00 Reglan IVP 10 mg Q6H ODILON Administration Mineral Oil/White Petrolatum 0 gm 12/04/19 14:04 12/04/19 14:49 Aquaphor 99 Gm TOP 1 applic PRN PRN Administration SKIN Miscellaneous Medication 0 gm 12/03/19 20:54 12/12/19 09:22 Preparation H Ointment TOP 1 appful TIDPRN PRN Administration Hemorrhoids Miscellaneous Medication 1 pkt 12/09/19 07:31 12/12/19 21:00 Phos-Nak PO 1 pkt TIDPRN PRN Administration FOR PHOS LEVEL 1.0 - 1.8 Pantoprazole Sodium 40 mg 12/06/19 09:00 12/16/19 08:45 Protonix IVP 40 mg DAILY ODILON Administration Potassium Chloride 40 meq 12/09/19 07:31 12/13/19 05:48 Klor-Con PER TUBE 40 meq ASDIR PRN Administration FOR SERUM K+ 2.5-3.5 Propofol 1,000 mg 12/09/19 12:22 12/16/19 04:51 Diprivan IV 01/08/20 12:22 1,000 mg INF PRN Administration TO ACHIEVE GOAL RASS Protocol Saccharomyces Boulardii 250 mg 12/03/19 09:00 12/16/19 08:53 Florastor PO 250 mg DAILY ODILON Administration Senna/Docusate Sodium 1 tab 12/14/19 21:00 12/16/19 08:53 Senokot S PO 1 tab BID ODILON Administration Simethicone 80 mg 12/08/19 21:00 12/16/19 08:52 Mylicon Chewable PO 80 mg BID ODILON Administration Sodium Chloride 10 ml 12/02/19 09:00 12/16/19 08:52 Flush - Normal Saline IVF 10 ml Q12HR ODILON Administration Sodium Chloride 10 ml 12/02/19 01:25 12/15/19 08:33 Flush - Normal Saline IVF 10 ml PRN PRN Administration Saline Flush Sodium Chloride 10 ml 12/05/19 20:22 12/06/19 11:40 Normal Saline Pf FS 10 ml PRN PRN Administration RECONSTITUTION - Exam General Appearance: ill appearing Eye: PERRL ENT: normocephalic atraumatic Neck: supple Respiratory: normal chest expansion, rales, rhonchi Gastrointestinal: soft, diminished bowl sounds Neurological: no focal deficits Hosp A/P - Plan (1) Acute and chronic respiratory failure with hypoxia Code(s): J96.21 - ACUTE AND CHRONIC RESPIRATORY FAILURE WITH HYPOXIA Status: Acute (2) Malignant pleural effusion Code(s): J91.0 - MALIGNANT PLEURAL EFFUSION Status: Acute (3) Mucositis (ulcerative) due to antineoplastic therapy Code(s): K12.31 - ORAL MUCOSITIS (ULCERATIVE) DUE TO ANTINEOPLASTIC THERAPY Status: Acute (4) Neutropenic fever Code(s): D70.9 - NEUTROPENIA, UNSPECIFIED; R50.81 - FEVER PRESENTING WITH CONDITIONS CLASSIFIED ELSEWHERE Status: Acute (5) Hypertension Code(s): I10 - ESSENTIAL (PRIMARY) HYPERTENSION Status: Acute Qualifiers: Hypertension type: essential hypertension Qualified Code(s): I10 - Essential (primary) hypertension (6) Stage IV carcinoma of breast Code(s): C50.919 - MALIGNANT NEOPLASM OF UNSP SITE OF UNSPECIFIED FEMALE BREAST Status: Chronic - Plan * Acute on chronic respiratory failure- due to malignant pleural effusion on the right. She is s/p PleurX catheter on the right. She has existing PleurX catheter on the left * Neutropenic fever- Continue Meropenem, Vancomycin, Micafungin, and Acyclovir * Severe anemia- likely related to chemotherapy- transfuse as needed * Thrombocytopenia- due to chemotherapy * Liver function tests have vijay stable * HTN- blood pressure is stable * Hypokalemia and Hypophosphatemia- * Symptom Management * * Hypophosphatemia * --being replaced -fuentes - verónica uine - on TF sub med cath/port --not accessed currently. Full code Mild hypernatremia --getting free water Hypophostamia --improving, since consistently low, scheduled bid doses, will dc once PO4 > 2 --> normalized--will dc schedule ones i did y'day and keep PRN replacement --dr. Bourgeois following with us Acute blood loss anemia --hgb dropped from 10.5 to 7.8 - rpt level 7.9 - no overt bleed, dilutional? - transfuse if hgb < 7 -close monitor---7.7 on constipatioin /Ileus --stool softeners. --with TF, expected to have loose stools. b/l thoracotomy tubes--connected w.. chest tube.-----> likely to be removed after extubation. Aprpeciate all consults hlep. Metastatic breast ca with pulmonary involvement chronic sinus tachycardia -- concern for Constrictive process [restrictive CMY or constrictive pericarditis with metastatic breast ca. --will get 2 D echo. Hypernatremia -- will hold 1/2 NS for now and free water increased. -checking BMP around 3pm. hgb remained stable between 7 &8. will follow with NH3, TSH and lipase ordered today. methylprednisolone, fentanyl -off vanc and cw merum . --lidia neg incld central line/fem venin -- no growth. u lidia of 7th - no growth. Moderate pl effusion, and cont'd to have b/l opacification - cxr tolerating TF. Had BM after enema yesterday concern for overall prognosis of this patient. discussing with other doctors. Likely needs more communication and possible family meeting.
[2019-12-16 16:24] LABS: ALT (SGPT) 15 U/L (8-55); AST (SGOT) 78 U/L (5-34); Albumin 2.9 g/dL (3.5-5.0); Alkaline Phosphatase 711 U/L (40-110); Bilirubin, Direct 3.8 mg/dL (0.1-0.3); Bilirubin, Total 4.9 mg/dL (0.2-1.2); Protein, Total 5.7 g/dL (6.0-8.3)
--- NOTE | 2019-12-16 17:08 | PRG ---
DATE OF SERVICE: 12/16/2019 SERVICE: Nephrology. SUBJECTIVE: A 39-year-old female with metastatic breast cancer, seen in followup for electrolyte derangement. The patient remained intubated and mechanically ventilated. No new problem. free water flushes. OBJECTIVE: VITAL SIGNS: Temperature 97.8, pulse 103, respiratory rate 25, SpO2 of 94% on FiO2 of 60%, blood pressure is 98/64. GENERAL: Clinically ill-looking female, in no obvious distress. Afebrile. Anicteric. Acyanotic. HEENT: Normocephalic, atraumatic. ET tube is in place. CARDIOVASCULAR: Regular rhythm and rate with normal heart sounds 1 and 2. The patient is tachycardic. RESPIRATORY: Ventilator transmitted breath sounds are heard in all lung zones. GI: Full, soft, nontender, nondistended with normal bowel sounds. UROGENITAL: Fields catheter is in place, draining urine. EXTREMITIES: Mild edema of left upper and lower extremities noted. TRAINING PERSONNEL SUPERVISOR: The patient is sedated. Both eyes are open, and the patient tends to move with stimulation. DIAGNOSTIC DATA: CBC showed WBC count of 8.2, hemoglobin of 7.5, and platelets of 91. CMP showed sodium 147, potassium 3.8, chloride 110, CO2 of 27, BUN 17, creatinine 0.64, glucose 157, calcium 6.4, total bilirubin 5.0, AST 72, ALT 10, alkaline phosphatase 686, total protein 6.0, albumin 3.1, and globulin 2.9. Chest x-ray showed severe bilateral alveolar infiltrates, right worse than left with the right-sided consolidation appearing slightly larger and more dense than yesterday's report, which could be due to . No pneumothorax noted. ASSESSMENT: 1. Hypernatremia: Due to free water deficit. Improved with sodium down to 147. 2. Hypokalemia, repleted. 3. Hypophosphatemia, repleted. 4. Volume status: Intravascular contraction has improved with albumin therapy. The patient is developing some edema of the left side, which most likely is extravasation, not reflecting true fluid overload. 5. Metastatic breast cancer with metastasis to the liver, lungs, and bone. 6. Acute respiratory failure. 7. Bilateral pleural effusion. PLAN: 1. Free water flushes via NG tube have been increased to 400 mL every 4 hours. 2. We continued tube feeding. 3. We will recheck electrolytes. 4. Further treatment to follow depending on hospital course and review of other diagnostic test. 5. Other treatment as per bread distributor. Job ID: [id number]
[2019-12-17] MEDS: MEROPENEM 1 GM/50 ML 1 GM in Premix Bag 1 BAG IVPB SCH ×3 (05:10→20:57)
[2019-12-17] MEDS: Metoclopramide HCl 10 MG/2 ML VIAL IVP SCH ×4 (05:10→22:04)
[2019-12-17 05:50] LABS: Hemoglobin 7.6 g/dL (12.0-16.0); Mean Corpuscular Hemoglobin 30.9 pg (27.0-31.0); Mean Corpuscular Volume 99.7 fL (78.0-98.0); Mean Platelet Volume 11.9 fL (7.4-10.4); Platelet Count 108 thou/uL (130-400); RBC Distribution Width 21.4 % (11.5-14.5); Red Blood Cell (RBC) Count 2.45 mill/uL (4.20-5.40)
[2019-12-17 06:16] LABS: Band 17 % (5-11); Lymphocytes 7 % (21-51); MDiff Complete? YES; Monocytes 6 % (0-10); Myelocyte 5 % (0-0); Neutrophil 65 % (42-75); Nucleated RBC 11 % (0); Polychromasia SLIGHT = 2-3 cells (100X) (0-2/hpf); White Blood Cell (WBC) Count 9.5 thou/uL (4.8-10.8)
[2019-12-17 06:48] LABS: Anion Gap 12 mmol/L (10-20); BUN (Urea Nitrogen) 20 mg/dL (7.0-18.7); Calc. Creatinine Clearance 153 mL/min (70-130); Calcium 6.1 mg/dL (7.8-10.44); Carbon Dioxide 28 mmol/L (22-29); Chloride 107 mmol/L (98-107); Estimated GFR-MDRD Greater than 90; Glucose 131 mg/dL (70-105); Potassium 3.9 mmol/L (3.5-5.1); Sodium 143 mmol/L (136-145)
[2019-12-17] MEDS: fentaNYL Citrate/PF 2,000 MCG in Sodium Chloride 0.9% 60 ML IV SCH ×2 (07:38→20:44)
[2019-12-17] MEDS: methylPREDNISolone Sod Succ/PF 125 MG/2 ML VIAL IVP SCH (08:36)
[2019-12-17] MEDS: Pantoprazole 40 MG VIAL IVP SCH (08:36)
[2019-12-17] MEDS: Senokot S 8.6-50 MG TAB PO SCH ×2 (08:37→20:07)
[2019-12-17] MEDS: Simethicone Chewable 80 MG TAB PO SCH ×2 (08:37→20:07)
[2019-12-17] MEDS: Saccharomyces boulardii 250 MG CAP PO SCH (08:37)
[2019-12-17] MEDS: Levalbuterol HCl 0.63 MG/3 ML NEB NEB SCH ×3 (10:51→22:27)
[2019-12-17] MEDS ORDERED: Furosemide 40 MG/4 ML VIAL SLOW IVP SCH (11:30)
[2019-12-17] MEDS: Potassium Chloride 40 MEQ in Dextrose 5% in Water 1,000 ML IV SCH (11:57)
[2019-12-17] MEDS: SODIUM CHLORIDE 0.9% IVPB SCH ×2 (11:58→22:04)
[2019-12-17] MEDS: VORICONAZOLE IVPB SCH ×2 (11:58→22:04)
--- NOTE | 2019-12-17 12:12 | PRG ---
DATE OF SERVICE: 12/17/2019 SERVICE: Nephrology. SUBJECTIVE: A 39-year-old female with metastatic breast cancer, currently intubated and mechanically ventilated. Nephrology is following the patient for electrolyte derangement. Still sedated and mechanically ventilated. Nutrition is via NG tube. The patient comprehend speech conversational. OBJECTIVE: VITAL SIGNS: Temperature 98.8, pulse 112, respiratory rate 35, blood pressure 98/60, and SpO2 of 100 on 50% FiO2. Intake and output in the last 24 hours showed total intake of 5227 with total output of 1225. GENERAL: Chronically ill-looking female, comfortable, and mechanically ventilated. HEENT: ET tube is in place. CARDIOVASCULAR: Regular rhythm and rate, but tachycardic. RESPIRATORY: Ventilator transmitted breath sounds heard in all lung zones. GI: Full, soft, nontender, nondistended with normal bowel sounds. UROGENITAL: Fields catheter is in place, draining urine. EXTREMITIES: Trace to mild edema of the extremities especially the left side noted. CAMPUS ADMINISTRATOR: The patient is sedated. DIAGNOSTIC DATA: CBC showed WBC count of 9.5, hemoglobin of 7.6, and platelets of 65. Chemistry showed sodium 143, potassium 3.9, chloride 107, CO2 of 28, BUN 20, creatinine 0.58, glucose 131, calcium 6.1, and albumin 2.9. ASSESSMENT: 1. Hypernatremia: Due to free water deficit. Resolved with free water provision via NG tube. 2. Hypokalemia, repleted. 3. Hypophosphatemia due to poor oral intake, repleted. 4. Volume contraction, seems better with crystalloid and colloid. The patient has some edema and has been positive in the last 2 to 3 days in intake and output. 5. Metastatic breast cancer. 6. Acute on chronic respiratory failure, requiring intubation. 7. Anemia of chronic illness. PLAN: 1. We will decrease free water flushes via NG tube from 400 every 4 hours to 200 every 4 hours. 2. We will also give a dose of Lasix given mild edema. 3. We will recheck renal function in the morning. Other treatment as per other specialties and depending on hospital course. Job ID: [id number]
[2019-12-17] MEDS ORDERED: Fleet Enema 133 ML BOT PR SCH (13:00)
--- NOTE | 2019-12-17 13:55 | PDOC.HOSPP ---
- Subjective Encounter Date: 12/17/19 Encounter Time: 10:20 Subjective: pt remained stable on the vent, urine output around 40ml/hr but quite dark, talk to RN and Trevin Campa. No need for further IVF as she is getting free water 200ml q4. Na improved and other lytes are ok. pt did not had BM this am, enema PRN. - Objective Vital Signs & Weight: Vital Signs (12 hours) Temp Pulse Resp BP 12/17/19 12:00 24 H 12/17/19 11:36 103 H 103/60 12/17/19 10:00 25 H 12/17/19 08:00 35 H 12/17/19 07:34 112 H 98/60 12/17/19 06:00 25 H 12/17/19 04:00 98.8 F 21 H 12/17/19 02:39 102 H 92/54 L 12/17/19 02:00 20 Weight Admit Weight 143 lb 6.4 oz Weight 162 lb 14.746 oz Most Recent Monitor Data Heart Rate from ECG 105 NIBP 103/70 NIBP BP-Mean 81 Respiration from ECG 29 SpO2 89 I&O: 12/16/19 12/17/19 12/18/19 06:59 06:59 06:59 Intake Total 4442.6 5727.6 792.5 Output Total 1085 1225 240 Balance 3357.6 4502.6 552.5 Result Diagrams: 12/17/19 04:15 12/17/19 04:15 Hospitalist ROS - Medication Medications: Active Medications Generic Name Dose Route Start Last Admin Trade Name Freq PRN Reason Stop Dose Admin Acetaminophen 650 mg 12/02/19 19:15 12/10/19 04:22 Tylenol Elixir PO 650 mg Q4H PRN Administration Headache/Fever or Pain (1-3) Bisacodyl 10 mg 12/02/19 18:33 12/16/19 08:53 Dulcolax TN 10 mg DAILYPRN PRN Administration Constipation Meropenem 1 gm/ Device 50 mls @ 100 mls/hr 12/08/19 22:00 12/17/19 05:10 IVPB 50 mls Q8HR ODILON Administration Potassium Phosphate 9 mmol/ 103 mls @ 25.75 mls/hr 12/09/19 07:31 12/09/19 22 :03 Sodium Chloride IVPB 103 mls ASDIR PRN Administration Phosphate 1.0-1.8 Norepinephrine Bitartrate 250 mls @ 0 mls/hr 12/09/19 12:14 12/09/19 20:22 Levophed IVPB 250 mls PRN PRN Administration To maintain MAP > 65 Protocol Titrate Fentanyl Citrate 2,000 mcg/ 100 mls @ 0 mls/hr 12/09/19 12:22 12/17/19 07:38 Sodium Chloride IV 01/08/20 12:22 100 mls INF ODILON Administration Protocol Per Protocol Midazolam HCl 100 mls @ 0 mls/hr 12/13/19 13:00 12/17/19 06:15 Versed IVPB 100 mls INF ODILON Administration Protocol Titrate Potassium Chloride 40 meq/ 1,020 mls @ 25 mls/hr 12/15/19 12:00 12/17/19 11: 57 Dextrose/Water IV Not Given .Q24H ODILON Voriconazole 400 mg/ Sodium 250 mls @ 125 mls/hr 12/17/19 11:00 12/17/19 11: 58 Chloride IVPB 12/18/19 02:00 250 mls 1100,2300 ODILON Administration Levalbuterol HCl 0.63 mg 12/04/19 15:11 12/17/19 10:51 Xopenex NEB Not Given [id number] ODILON Lidocaine/Prilocaine 5 gm 12/02/19 13:06 12/14/19 20:54 Emla 2.5% TOP 1 applic PRN PRN Administration INJECTION SITE Lorazepam 2 mg 12/09/19 12:22 12/12/19 08:45 Ativan SLOW IVP 01/08/20 12:22 2 mg Q1H PRN Administration Breakthrough agitation Methylprednisolone Sodium Succinate 80 mg 12/15/19 09:00 12/17/19 08:36 Solu-Medrol IVP 80 mg DAILY ODILON Administration Metoclopramide HCl 10 mg 12/11/19 17:00 12/17/19 11:58 Reglan IVP 10 mg Q6H ODILON Administration Mineral Oil/White Petrolatum 0 gm 12/04/19 14:04 12/04/19 14:49 Aquaphor 99 Gm TOP 1 applic PRN PRN Administration SKIN Miscellaneous Medication 0 gm 12/03/19 20:54 12/12/19 09:22 Preparation H Ointment TOP 1 appful TIDPRN PRN Administration Hemorrhoids Miscellaneous Medication 1 pkt 12/09/19 07:31 12/12/19 21:00 Phos-Nak PO 1 pkt TIDPRN PRN Administration FOR PHOS LEVEL 1.0 - 1.8 Pantoprazole Sodium 40 mg 12/06/19 09:00 12/17/19 08:36 Protonix IVP 40 mg DAILY ODILON Administration Potassium Chloride 40 meq 12/09/19 07:31 12/13/19 05:48 Klor-Con PER TUBE 40 meq ASDIR PRN Administration FOR SERUM K+ 2.5-3.5 Propofol 1,000 mg 12/09/19 12:22 12/16/19 04:51 Diprivan IV 01/08/20 12:22 1,000 mg INF PRN Administration TO ACHIEVE GOAL RASS Protocol Saccharomyces Boulardii 250 mg 12/03/19 09:00 12/17/19 08:37 Florastor PO 250 mg DAILY ODILON Administration Senna/Docusate Sodium 1 tab 12/14/19 21:00 12/17/19 08:37 Senokot S PO 1 tab BID ODILON Administration Simethicone 80 mg 12/08/19 21:00 12/17/19 08:37 Mylicon Chewable PO 80 mg BID ODILON Administration Sodium Chloride 10 ml 12/02/19 09:00 12/17/19 08:38 Flush - Normal Saline IVF Not Given Q12HR ODILON Sodium Chloride 10 ml 12/02/19 01:25 12/15/19 08:33 Flush - Normal Saline IVF 10 ml PRN PRN Administration Saline Flush Sodium Chloride 10 ml 12/05/19 20:22 12/06/19 11:40 Normal Saline Pf FS 10 ml PRN PRN Administration RECONSTITUTION - Exam General Appearance: ill appearing General - other findings: vent ENT: normocephalic atraumatic Neck: supple Heart: RRR, normal peripheral pulses Respiratory: rales, rhonchi Gastrointestinal: soft, distended, diminished bowl sounds Neurological: no focal deficits Hosp A/P - Plan (1) Acute and chronic respiratory failure with hypoxia Code(s): J96.21 - ACUTE AND CHRONIC RESPIRATORY FAILURE WITH HYPOXIA Status: Acute (2) Malignant pleural effusion Code(s): J91.0 - MALIGNANT PLEURAL EFFUSION Status: Acute (3) Mucositis (ulcerative) due to antineoplastic therapy Code(s): K12.31 - ORAL MUCOSITIS (ULCERATIVE) DUE TO ANTINEOPLASTIC THERAPY Status: Acute (4) Neutropenic fever Code(s): D70.9 - NEUTROPENIA, UNSPECIFIED; R50.81 - FEVER PRESENTING WITH CONDITIONS CLASSIFIED ELSEWHERE Status: Acute (5) Hypertension Code(s): I10 - ESSENTIAL (PRIMARY) HYPERTENSION Status: Acute Qualifiers: Hypertension type: essential hypertension Qualified Code(s): I10 - Essential (primary) hypertension (6) Stage IV carcinoma of breast Code(s): C50.919 - MALIGNANT NEOPLASM OF UNSP SITE OF UNSPECIFIED FEMALE BREAST Status: Chronic - Plan * Acute on chronic respiratory failure- due to malignant pleural effusion on the right. She is s/p PleurX catheter on the right. She has existing PleurX catheter on the left * Neutropenic fever- Continue Meropenem, Vancomycin, Micafungin, and Acyclovir * Severe anemia- likely related to chemotherapy- transfuse as needed * Thrombocytopenia- due to chemotherapy * Liver function tests have vijay stable * HTN- blood pressure is stable * Hypokalemia and Hypophosphatemia- * Symptom Management * * Hypophosphatemia * --being replaced -fuentes - verónica uine - on TF sub med cath/port --not accessed currently. Full code Mild hypernatremia --getting free water Hypophostamia --improving, since consistently low, scheduled bid doses, will dc once PO4 > 2 --> normalized--will dc schedule ones i did y'day and keep PRN replacement --dr. Bourgeois following with us Acute blood loss anemia --hgb dropped from 10.5 to 7.8 - rpt level 7.9 - no overt bleed, dilutional? - transfuse if hgb < 7 -close monitor---7.7 on constipatioin /Ileus --stool softeners. --with TF, expected to have loose stools. b/l thoracotomy tubes--connected w.. chest tube.-----> likely to be removed after extubation. Aprpeciate all consults hlep. Metastatic breast ca with pulmonary involvement chronic sinus tachycardia -- concern for Constrictive process [restrictive CMY or constrictive pericarditis with metastatic breast ca. --will get 2 D echo. Hypernatremia -- will hold 1/2 NS for now and free water increased. -checking BMP around 3pm. hgb remained stable between 7 &8. will follow with NH3, TSH and lipase ordered today. methylprednisolone, fentanyl -off vanc and cw merum . --lidia neg incld central line/fem venin -- no growth. u lidia of 7th - no growth. Moderate pl effusion, and cont'd to have b/l opacification - cxr Ileus due to analgesics tolerating TF. --d/w RN if residual >200, hold the TF for 4 hrs if recheck < 150ml, then resume the feed. Had BM after enema, which is given as PRN concern for overall prognosis of this patient. discussing with other doctors. Likely needs more communication and possible family meeting. Likely today/friday afternoon. full code.
--- NOTE | 2019-12-17 13:55 | PDOC.MOPN ---
Interval History: still sedated, intubated, according to pulmonary she is not weanable at this time - Vital Signs Vital Signs: Vital Signs (12 hours) Temp Pulse Resp BP 12/17/19 12:00 24 H 12/17/19 11:36 103 H 103/60 12/17/19 10:00 25 H 12/17/19 08:00 35 H 12/17/19 07:34 112 H 98/60 12/17/19 06:00 25 H 12/17/19 04:00 98.8 F 21 H 12/17/19 02:39 102 H 92/54 L 12/17/19 02:00 20 Weight Admit Weight 143 lb 6.4 oz Weight 162 lb 14.746 oz Most Recent Monitor Data Heart Rate from ECG 105 NIBP 103/70 NIBP BP-Mean 81 Respiration from ECG 29 SpO2 89 - Physical Exam HEENT: Atraumatic Lungs: Other (decreased bilaterally) Cardiovascular: Regular rate, Other (tachy) Abdomen: Normal bowel sounds, Other (liver edge palpable, large) Skin: No rashes - Labs Result Diagrams: 12/17/19 04:15 12/17/19 04:15 Lab results: Laboratory Results - last 24 hr 12/17/19 04:15: Sodium 143, Potassium 3.9, Chloride 107, Carbon Dioxide 28, Anion Gap 12, BUN 20 H, Creatinine 0.58 L, Estimated GFR (MDRD) Greater than 90 , Glucose 131 H, Calcium 6.1 L 12/17/19 04:15: WBC 9.5, RBC 2.45 L, Hgb 7.6 L, Hct 24.4 L, MCV 99.7 H, MCH 30.9 , MCHC 31.0 L, RDW 21.4 H, Plt Count 108 L, MPV 11.9 H, Neutrophils % (Manual) 65, Band Neuts % (Manual) 17 H, Lymphocytes % (Manual) 7 L, Monocytes % (Manual ) 6, Myelocytes % 5 H, Lymphocytes # Not Reportable, Nucleated RBCs # (Man) 11 H , Polychromasia SLIGHT = 2-3 cells 12/16/19 15:49: Total Bilirubin 4.9 H, Direct Bilirubin 3.8 H, AST 78 H, ALT 15 , Alkaline Phosphatase 711 H, Serum Total Protein 5.7 L, Albumin 2.9 L A/P - Problem (1) Elevated LFTs Current Visit: Yes Code(s): R79.89 - OTHER SPECIFIED ABNORMAL FINDINGS OF BLOOD CHEMISTRY Status: Acute (2) Malnutrition Current Visit: Yes Code(s): E46 - UNSPECIFIED PROTEIN-CALORIE MALNUTRITION Status: Acute (3) Mucositis (ulcerative) due to antineoplastic therapy Current Visit: Yes Code(s): K12.31 - ORAL MUCOSITIS (ULCERATIVE) DUE TO ANTINEOPLASTIC THERAPY Status: Acute (4) Neutropenic fever Current Visit: Yes Code(s): D70.9 - NEUTROPENIA, UNSPECIFIED; R50.81 - FEVER PRESENTING WITH CONDITIONS CLASSIFIED ELSEWHERE Status: Acute (5) Abdominal pain Current Visit: Yes Code(s): R10.9 - UNSPECIFIED ABDOMINAL PAIN Status: Acute Qualifiers: Abdominal location: generalized Qualified Code(s): R10.84 - Generalized abdominal pain (6) Breast cancer Current Visit: No Status: Acute (7) Epigastric pain Current Visit: No Code(s): R10.13 - EPIGASTRIC PAIN Status: Acute (8) Liver metastases Current Visit: No Code(s): C78.7 - SECONDARY MALIG NEOPLASM OF LIVER AND INTRAHEPATIC BILE DUCT Status: Acute (9) Tachycardia with heart rate 100-120 beats per minute Current Visit: No Code(s): R00.0 - TACHYCARDIA, UNSPECIFIED Status: Acute (10) Bone metastases Current Visit: No Code(s): C79.51 - SECONDARY MALIGNANT NEOPLASM OF BONE Status: Chronic (11) Neutropenia Current Visit: No Code(s): D70.9 - NEUTROPENIA, UNSPECIFIED Status: Chronic (12) Acute and chronic respiratory failure with hypoxia Current Visit: Yes Code(s): J96.21 - ACUTE AND CHRONIC RESPIRATORY FAILURE WITH HYPOXIA Status: Acute - Plan Plan: 1. she is not weanable according to pulmonary, appreciate their help 2. she has failed multiple lines of treatment and my opinion will not tolerate more treatment at this time, i think she id dying 3. i have had discussions with she and her brother in the past, we have discussed hospice and QOL. I think it is time we change gears and focus on her QOL more than anything else. I will discuss this again with her brother as well. Specifically, her brother would like us to restart ibrance, she took this some time ago and tolerated it poorly. It is oral and works slowly, it will not get her off the ventilator in my opinion. Also, it is not a drug we can obtain for her as an inpatient. 4. i would suggest that if she cannot come off the ventilator within a reasonable period of time that we do not move forward with trach/PEG. I would suggest we extubate and see if she survives but she needs to be a DNAR prior to exubation. The pulmonary team thinks it is unlikely she will survive this and I believe they have shared this with her brother. 5. we will continue to follow peripherally
--- NOTE | 2019-12-17 18:46 | PRG ---
DATE OF SERVICE: 12/17/2019 SUBJECTIVE: The patient is still on the ventilator, sedated. OBJECTIVE: VITAL SIGNS: With a T-max 98.9, blood pressure 105/66, heart rate 113, O2 saturation 100, and FiO2 of 50. LUNGS: With coarse breath sounds. HEART: S1 and S2. ABDOMEN: Somewhat distended abdomen, but soft. : Fields catheter in place. She was positive for the past 3 days, 1000, 3000, and 4500. LABORATORY DATA: White cell count 9.5, hemoglobin 7.6, platelets 65,000, and 17% bands. Creatinine 0.58, bilirubin 4.9, direct 3.8, AST 78, ALT 15, and alkaline phosphatase 711. Microbiology with blood cultures from 12/09, no growth. A CT of chest with bilateral diffuse infiltrates, more consistent with inflammatory infectious process and neoplastic process. The oncologist note of Dr. Duran was reviewed and in her opinion, the patient has a failed multiple lines of treatment and prognosis is poor. Discussions are in progress. We will go ahead and submit a Fungitell assay, add voriconazole. At this point in time, those efforts are futile in my opinion. Job ID: [id number]
--- NOTE | 2019-12-17 22:07 | PRG ---
DATE OF SERVICE: 12/17/2019 SUBJECTIVE: Melissa Guallpa is clinically unchanged. She did make eye contact in spite of large volume of sedation that she is getting. She would not follow commands. OBJECTIVE: LUNGS: Remarkable for coarse equal breath sounds. HEART: Regular rhythm. ABDOMEN: Soft. Her abdomen is still distended. VITAL SIGNS: Heart rate is 94, blood pressure 96/59, respiratory rate is per mechanical ventilation. She is still on bilevel ventilation. LABORATORY DATA: White count 9.5, hemoglobin 7.6, platelets 108,000. Sodium 143, potassium 3.9, chloride 107, bicarb 28, BUN 22, creatinine 0.58. IMPRESSION: Respiratory failure associated with widely metastatic breast cancer. CT scan showed bilateral alveolar patchy infiltrates. This could either dehydrated pneumonia or rapid progression of parenchymal lung malignancy. If it is high-grade pneumonia, it will take 1 to 2 months to normalize on x-ray. She is already so weak and if she had no breast cancer, she probably would come off the ventilator for some period of time. She has extensive liver and bone metastases and has pleural disease. In my opinion, does not have any illness that she can survive. Her weakness and her mechanical ventilation prevent her from getting any additional chemotherapy in my opinion, and she is running out of chemotherapeutic options given how long she has dealt with this malignancy. Job ID: [id number]
[2019-12-18] MEDS: Propofol 1,000 MG/100 ML VIAL IV PRN (00:23)
[2019-12-18] MEDS: MEROPENEM 1 GM/50 ML 1 GM in Premix Bag 1 BAG IVPB SCH ×3 (05:23→21:04)
[2019-12-18] MEDS: Metoclopramide HCl 10 MG/2 ML VIAL IVP SCH ×4 (05:23→22:05)
[2019-12-18 05:34] LABS: ALT (SGPT) 23 U/L (8-55); AST (SGOT) 92 U/L (5-34); Albumin 2.8 g/dL (3.5-5.0); Alkaline Phosphatase 762 U/L (40-110); Anion Gap 11 mmol/L (10-20); BUN (Urea Nitrogen) 22 mg/dL (7.0-18.7); Bilirubin, Total 3.9 mg/dL (0.2-1.2); Calc. Creatinine Clearance 156 mL/min (70-130); Carbon Dioxide 30 mmol/L (22-29); Chloride 105 mmol/L (98-107); Estimated GFR-MDRD Greater than 90; Globulin 2.7 g/dL (2.4-3.5); Glucose 130 mg/dL (70-105); Potassium 3.4 mmol/L (3.5-5.1); Protein, Total 5.5 g/dL (6.0-8.3); Sodium 143 mmol/L (136-145)
[2019-12-18 05:39] LABS: Calcium 5.8 mg/dL (7.8-10.44)
[2019-12-18] MEDS ORDERED: Calcium Gluc 4.6 MEQ/10 ML (100 MG/ML) SLOW IVP SCH (06:00)
[2019-12-18 06:19] LABS: Anisocytosis MODERATE=16-30 cells (100X) (0-5/hpf); Band 25 % (5-11); Hemoglobin 7.7 g/dL (12.0-16.0); Lymphocytes 9 % (21-51); MDiff Complete? YES; Mean Corpuscular HGB CONC 30.9 g/dL (32.0-36.0); Mean Platelet Volume 11.3 fL (7.4-10.4); Metamyelocyte 1 % (0-0); Monocytes 6 % (0-10); Myelocyte 2 % (0-0); Neutrophil 54 % (42-75); Nucleated RBC 18 % (0); Platelet Count 115 thou/uL (130-400); Platelet Morphology Comment Appears Decreased; RBC Distribution Width 21.9 % (11.5-14.5); Reactive Lymphocytes 3 % (0-10); Red Blood Cell (RBC) Count 2.49 mill/uL (4.20-5.40); White Blood Cell (WBC) Count 8.7 thou/uL (4.8-10.8)
[2019-12-18] MEDS: Levalbuterol HCl 0.63 MG/3 ML NEB NEB SCH ×3 (07:14→22:47)
[2019-12-18] MEDS ORDERED: Cholecalciferol (Vitamin D3) 400 UNITS TAB PO SCH (09:00)
[2019-12-18] MEDS: Senokot S 8.6-50 MG TAB PO SCH ×2 (09:10→21:04)
[2019-12-18] MEDS: Simethicone Chewable 80 MG TAB PO SCH ×2 (09:10→21:04)
[2019-12-18] MEDS: Saccharomyces boulardii 250 MG CAP PO SCH (09:10)
[2019-12-18] MEDS: methylPREDNISolone Sod Succ/PF 125 MG/2 ML VIAL IVP SCH (09:11)
[2019-12-18] MEDS: Pantoprazole 40 MG VIAL IVP SCH (09:11)
[2019-12-18] MEDS: fentaNYL Citrate/PF 2,000 MCG in Sodium Chloride 0.9% 60 ML IV SCH ×2 (10:11→23:46)
[2019-12-18] MEDS ORDERED: Cholecalciferol 10 MCG/ML (Vitamin D3) 50 ML BOT PO SCH ×2 (10:28→12:00)
--- NOTE | 2019-12-18 10:37 | PDOC.HOSPP ---
- Subjective Encounter Date: 12/18/19 Encounter Time: 10:35 Subjective: Ms. Guallpa was seen today in follow-up of respiratory failure , and metastatic breast cancer. She is intubated. she will respond. Her sister ids at her bedside. She appears comfortable. - Objective Vital Signs & Weight: Vital Signs (12 hours) Temp Pulse Resp BP Pulse Ox 12/18/19 10:00 20 12/18/19 08:00 97.7 F 20 12/18/19 07:14 94 20 100 12/18/19 07:11 96 92/56 L 12/18/19 06:00 12/18/19 04:00 98.1 F 20 12/18/19 03:20 98 95/52 L 12/18/19 02:00 12/18/19 00:00 98.7 F 20 Weight Admit Weight 143 lb 6.4 oz Weight 165 lb 5.547 oz Most Recent Monitor Data Heart Rate from ECG 91 NIBP 94/71 NIBP BP-Mean 78 Respiration from ECG 18 SpO2 100 I&O: 12/17/19 12/18/19 12/19/19 06:59 06:59 06:59 Intake Total 5727.6 3649.4 230 Output Total 1225 2267 275 Balance 4502.6 1382.4 -45 Result Diagrams: 12/18/19 04:29 12/18/19 04:29 Hospitalist ROS - Medication Medications: Active Medications Generic Name Dose Route Start Last Admin Trade Name Freq PRN Reason Stop Dose Admin Acetaminophen 650 mg 12/02/19 19:15 12/10/19 04:22 Tylenol Elixir PO 650 mg Q4H PRN Administration Headache/Fever or Pain (1-3) Bisacodyl 10 mg 12/02/19 18:33 12/16/19 08:53 Dulcolax RI 10 mg DAILYPRN PRN Administration Constipation Meropenem 1 gm/ Device 50 mls @ 100 mls/hr 12/08/19 22:00 12/18/19 05:23 IVPB 50 mls Q8HR ODILON Administration Potassium Phosphate 9 mmol/ 103 mls @ 25.75 mls/hr 12/09/19 07:31 12/09/19 22 :03 Sodium Chloride IVPB 103 mls ASDIR PRN Administration Phosphate 1.0-1.8 Norepinephrine Bitartrate 250 mls @ 0 mls/hr 12/09/19 12:14 12/09/19 20:22 Levophed IVPB 250 mls PRN PRN Administration To maintain MAP > 65 Protocol Titrate Fentanyl Citrate 2,000 mcg/ 100 mls @ 0 mls/hr 12/09/19 12:22 12/18/19 10:11 Sodium Chloride IV 01/08/20 12:22 100 mls INF ODILON Administration Protocol Per Protocol Midazolam HCl 100 mls @ 0 mls/hr 12/13/19 13:00 12/18/19 09:25 Versed IVPB 100 mls INF ODILON Administration Protocol Titrate Voriconazole 300 mg/ Sodium 100 mls @ 50 mls/hr 12/18/19 09:00 12/18/19 09:12 Chloride IVPB 100 mls Q12HR ODILON Administration Levalbuterol HCl 0.63 mg 12/04/19 15:11 12/18/19 07:14 Xopenex NEB 0.63 mg [id number] ODILON Administration Lidocaine/Prilocaine 5 gm 12/02/19 13:06 12/14/19 20:54 Emla 2.5% TOP 1 applic PRN PRN Administration INJECTION SITE Lorazepam 2 mg 12/09/19 12:22 12/12/19 08:45 Ativan SLOW IVP 01/08/20 12:22 2 mg Q1H PRN Administration Breakthrough agitation Methylprednisolone Sodium Succinate 80 mg 12/15/19 09:00 12/18/19 09:11 Solu-Medrol IVP 80 mg DAILY ODILON Administration Metoclopramide HCl 10 mg 12/11/19 17:00 12/18/19 05:23 Reglan IVP 10 mg Q6H ODILON Administration Mineral Oil/White Petrolatum 0 gm 12/04/19 14:04 12/04/19 14:49 Aquaphor 99 Gm TOP 1 applic PRN PRN Administration SKIN Miscellaneous Medication 0 gm 12/03/19 20:54 12/12/19 09:22 Preparation H Ointment TOP 1 appful TIDPRN PRN Administration Hemorrhoids Miscellaneous Medication 1 pkt 12/09/19 07:31 12/12/19 21:00 Phos-Nak PO 1 pkt TIDPRN PRN Administration FOR PHOS LEVEL 1.0 - 1.8 Pantoprazole Sodium 40 mg 12/06/19 09:00 12/18/19 09:11 Protonix IVP 40 mg DAILY ODILON Administration Potassium Chloride 40 meq 12/09/19 07:31 12/18/19 06:08 Klor-Con PER TUBE 40 meq ASDIR PRN Administration FOR SERUM K+ 2.5-3.5 Propofol 1,000 mg 12/09/19 12:22 12/18/19 00:23 Diprivan IV 01/08/20 12:22 1,000 mg INF PRN Administration TO ACHIEVE GOAL RASS Protocol Saccharomyces Boulardii 250 mg 12/03/19 09:00 12/18/19 09:10 Florastor PO 250 mg DAILY ODILON Administration Senna/Docusate Sodium 1 tab 12/14/19 21:00 12/18/19 09:10 Senokot S PO 1 tab BID ODILON Administration Simethicone 80 mg 12/08/19 21:00 12/18/19 09:10 Mylicon Chewable PO 80 mg BID ODILON Administration Sodium Chloride 10 ml 12/02/19 09:00 12/18/19 09:12 Flush - Normal Saline IVF 10 ml Q12HR ODILON Administration Sodium Chloride 10 ml 12/02/19 01:25 12/15/19 08:33 Flush - Normal Saline IVF 10 ml PRN PRN Administration Saline Flush Sodium Chloride 10 ml 12/05/19 20:22 12/06/19 11:40 Normal Saline Pf FS 10 ml PRN PRN Administration RECONSTITUTION - Exam Eye: PERRL, scleral icterus (mild scleral icterus) Heart: RRR, no murmur, no gallops, no rubs, normal peripheral pulses Respiratory: CTAB, no wheezes, no rales Gastrointestinal: soft (+ mildly distended,) Extremities: no cyanosis, no clubbing, 1+ LE edema Hosp A/P (1) Acute and chronic respiratory failure with hypoxia Code(s): J96.21 - ACUTE AND CHRONIC RESPIRATORY FAILURE WITH HYPOXIA Status: Acute (2) Malignant pleural effusion Code(s): J91.0 - MALIGNANT PLEURAL EFFUSION Status: Acute (3) Mucositis (ulcerative) due to antineoplastic therapy Code(s): K12.31 - ORAL MUCOSITIS (ULCERATIVE) DUE TO ANTINEOPLASTIC THERAPY Status: Acute (4) Neutropenic fever Code(s): D70.9 - NEUTROPENIA, UNSPECIFIED; R50.81 - FEVER PRESENTING WITH CONDITIONS CLASSIFIED ELSEWHERE Status: Acute (5) Hypertension Code(s): I10 - ESSENTIAL (PRIMARY) HYPERTENSION Status: Acute Qualifiers: Hypertension type: essential hypertension Qualified Code(s): I10 - Essential (primary) hypertension (6) Stage IV carcinoma of breast Code(s): C50.919 - MALIGNANT NEOPLASM OF UNSP SITE OF UNSPECIFIED FEMALE BREAST Status: Chronic - Plan * Acute on chronic respiratory failure- due to malignant pleural effusion now with bilateral PleurX catheters - continue Vent management as per PCCM * Neutropenic fever- ID recommendations noted- She has been placed on Voriconazole- continue Meropenem and Solumedrol * Severe anemia- likely related to chemotherapy- stable- transfuse as needed * Thrombocytopenia- slightly improved * HTN- blood pressure is stable * Hypokalemia and Hypocalcemia- continue ti replace * Symptom Management
--- NOTE | 2019-12-18 11:18 | PRG ---
DATE OF SERVICE: 12/18/2019 SERVICE: Nephrology. SUBJECTIVE: A 39-year-old female with metastatic breast cancer, admitted due to [id number] respiratory failure as well as febrile neutropenia. Nephrology is following the patient for electrolyte derangement. The patient is more awake despite still getting sedatives. Nods to questions. Still intubated however and mechanically ventilated. OBJECTIVE: VITAL SIGNS: Temperature 97.7, pulse 91, respiratory rate 23, SpO2 100% on FiO2 of 50% and blood pressure is 104/66. Intake and output in the last 24 hours showed total intake of 3649 with total output of 2267. GENERAL: Female, in no obvious distress. Sleeping, but opens eye with stimulation. HEENT: Normocephalic, atraumatic. ET tube is in place. CARDIOVASCULAR: Regular rhythm and rate with normal heart sounds 1 and 2. RESPIRATORY: Ventilator transmitted breath sounds heard in all lung zones. Bilateral PleurX catheter noted. GI: Full, soft, nontender, nondistended with normal bowel sounds. UROGENITAL: Fields catheter is in place draining urine. EXTREMITIES: Trace to mild edema of the extremities noted especially on the left side. 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 The patient however opens eye and nods to questions. DIAGNOSTIC DATA: CBC showed WBC count of 8.7, hemoglobin of 7.7, platelets of 115. Chemistry showed sodium 143, potassium 3.4, chloride 105, CO2 of 30, BUN 22, creatinine 0.57, glucose 130, calcium 5.8, total bilirubin 3.9, AST 92, ALT 23, alkaline phosphatase 762, total protein 5.5, albumin 2.8, globulin 2.7, vitamin D is 13.2. ASSESSMENT: 1. Hyponatremia: Due to water deficit. Corrected with provision of free water via nasogastric tube flushes. 2. Hypokalemia due to diuretic therapy. 3. Hypocalcemia due to poor oral intake and vitamin D deficiency. 4. Vitamin D deficiency. 5. Extremity edema due to extravasation as well as mild fluid overload. 6. Hypoalbuminemia. PLAN: 1. We will replete serum potassium with potassium chloride. 2. We will give additional albumin to expand intravascular space while giving diuretics to help with fluid edema. 3. We will also start vitamin D supplementation. 4. We will get ionized calcium. Since this is a send out, we will get arterial blood gases, which will give us ionized calcium immediately. We will replete serum calcium as indicated. 5. We will continue to monitor intake and output. 6. Further treatment to follow depending on hospital course. We will recheck electrolytes tomorrow. Job ID: [id number]
[2019-12-18] MEDS: Albumin 25% 25 GM/100 ML BOT IVPB SCH ×2 (11:35→17:36)
[2019-12-18] MEDS: Cholecalciferol 10 MCG/ML (Vitamin D3) 50 ML BOT PO SCH (11:49)
[2019-12-18] MEDS ORDERED: Furosemide 40 MG/4 ML VIAL SLOW IVP SCH (12:00)
--- NOTE | 2019-12-18 13:17 | PRG ---
DATE OF SERVICE: 12/18/2019 SUBJECTIVE: Melissa Guallpa's vital signs remained stable. She is sedated for ventilation. OBJECTIVE: LUNGS: Unchanged. HEART: Unchanged. ABDOMEN: Unchanged. LABORATORY DATA: White count is 8.7, hemoglobin 7.7, and platelets 115. Sodium 143, potassium 3.4, chloride 105, bicarb 30, BUN 22, and creatinine 0.57. Bilirubin is 3.9, alkaline phosphatase 762, and albumin is 2.8. IMPRESSION: Respiratory failure, not weanable from mechanical ventilation. ADDENDUM: She is over 10 L positive over the last 4 days. I do not believe that she can continue to tolerate a positive fluid balance like this without third-spacing with a lot of this into her lung parenchyma. Nephrology was consulted for fluid management, so this will need to be considered. Job ID: [id number]
[2019-12-18] MEDS: Enoxaparin Sodium 30 MG/0.3 ML SYRINGE SC SCH (21:04)
[2019-12-19] MEDS: MEROPENEM 1 GM/50 ML 1 GM in Premix Bag 1 BAG IVPB SCH ×3 (05:06→21:09)
[2019-12-19] MEDS: Metoclopramide HCl 10 MG/2 ML VIAL IVP SCH ×3 (05:07→15:39)
[2019-12-19 05:18] LABS: Anion Gap 11 mmol/L (10-20); BUN (Urea Nitrogen) 24 mg/dL (7.0-18.7); Calc. Creatinine Clearance 170 mL/min (70-130); Calcium 6.2 mg/dL (7.8-10.44); Carbon Dioxide 31 mmol/L (22-29); Chloride 109 mmol/L (98-107); Estimated GFR-MDRD Greater than 90; Glucose 169 mg/dL (70-105); Potassium 4.2 mmol/L (3.5-5.1); Sodium 147 mmol/L (136-145)
[2019-12-19 05:44] LABS: Band 19 % (5-11); Hemoglobin 7.6 g/dL (12.0-16.0); Lymphocytes 5 % (21-51); MDiff Complete? YES; Mean Corpuscular HGB CONC 29.9 g/dL (32.0-36.0); Mean Corpuscular Hemoglobin 30.5 pg (27.0-31.0); Mean Platelet Volume 11.8 fL (7.4-10.4); Metamyelocyte 4 % (0-0); Monocytes 6 % (0-10); Myelocyte 2 % (0-0); Neutrophil 64 % (42-75); Nucleated RBC 19 % (0); Platelet Count 115 thou/uL (130-400); Platelet Morphology Comment Appears Decreased; Polychromasia SLIGHT = 2-3 cells (100X) (0-2/hpf); RBC Distribution Width 22.8 % (11.5-14.5); Red Blood Cell (RBC) Count 2.48 mill/uL (4.20-5.40); Schistocytes SLIGHT = 2-5 cells (100X) (0-1/hpf); Tear Drops SLIGHT = 2-5 cells (100X) (0-1/hpf); White Blood Cell (WBC) Count 9.5 thou/uL (4.8-10.8)
[2019-12-19] MEDS: Levalbuterol HCl 0.63 MG/3 ML NEB NEB SCH ×3 (07:27→21:53)
[2019-12-19] MEDS: Pantoprazole 40 MG VIAL IVP SCH (09:00)
[2019-12-19] MEDS: methylPREDNISolone Sod Succ/PF 125 MG/2 ML VIAL IVP SCH (09:00)
[2019-12-19] MEDS: Saccharomyces boulardii 250 MG CAP PO SCH (09:02)
[2019-12-19] MEDS: Senokot S 8.6-50 MG TAB PO SCH ×2 (09:02→20:55)
[2019-12-19] MEDS: Simethicone Chewable 80 MG TAB PO SCH ×2 (09:02→20:55)
--- NOTE | 2019-12-19 09:17 | RAD ---
PORTABLE CHEST ONE VIEW: HISTORY: Respiratory failure. Fluid overload. COMPARISON: 12/16/2019 FINDINGS: Small caliber right chest tube in place. NG tube, endotracheal tube and left subclavian catheter in p lace. Persistent bilateral alveolar and ground glass opacity changes and small pleural effusions, mor e confluent in the right base. There appears to be some improvement in the left chest. IMPRESSION: Evidence for some improvement in the extensive bilateral alveolar and ground glass opacity changes an d small pleural effusions. Continue short-term followup. POS: [facility]
--- NOTE | 2019-12-19 11:38 | PDOC.HOSPP ---
- Subjective Encounter Date: 12/19/19 Encounter Time: 11:36 Subjective: Ms. Guallpa was seen today in follow-up of respiratory failure and metastatic breast cancer. Sedation has been reduced. She is moving her extremities more. No problems voiced by staff. - Objective Vital Signs & Weight: Vital Signs (12 hours) Temp Pulse Resp BP Pulse Ox 12/19/19 10:10 85 94/60 12/19/19 10:00 20 12/19/19 08:00 20 100 12/19/19 07:27 94 85/63 L 12/19/19 07:00 98.6 F 12/19/19 06:00 20 12/19/19 04:00 97.6 F 20 12/19/19 03:00 81 90/54 L 12/19/19 02:00 20 12/19/19 00:00 97.6 F 20 Weight Admit Weight 143 lb 6.4 oz Weight 164 lb 3.91 oz Most Recent Monitor Data Heart Rate from ECG 83 NIBP 88/55 NIBP BP-Mean 66 Respiration from ECG 15 SpO2 100 I&O: 12/18/19 12/19/19 12/20/19 06:59 06:59 06:59 Intake Total 3649.4 3750.4 260 Output Total 2267 2475 255 Balance 1382.4 1275.4 5 Result Diagrams: 12/19/19 04:40 12/19/19 04:40 Hospitalist ROS - Medication Medications: Active Medications Generic Name Dose Route Start Last Admin Trade Name Freq PRN Reason Stop Dose Admin Acetaminophen 650 mg 12/02/19 19:15 12/10/19 04:22 Tylenol Elixir PO 650 mg Q4H PRN Administration Headache/Fever or Pain (1-3) Bisacodyl 10 mg 12/02/19 18:33 12/16/19 08:53 Dulcolax [place] 10 mg DAILYPRN PRN Administration Constipation Cholecalciferol 3 ml 12/19/19 09:00 12/18/19 11:49 Vitamin D PO 3 ml DAILY ODILON Administration Enoxaparin Sodium 30 mg 12/18/19 21:00 12/18/19 21:04 Lovenox SC 30 mg 2100 ODILON Administration Potassium Phosphate 9 mmol/ 103 mls @ 25.75 mls/hr 12/09/19 07:31 12/09/19 22 :03 Sodium Chloride IVPB 103 mls ASDIR PRN Administration Phosphate 1.0-1.8 Norepinephrine Bitartrate 250 mls @ 0 mls/hr 12/09/19 12:14 12/09/19 20:22 Levophed IVPB 250 mls PRN PRN Administration To maintain MAP > 65 Protocol Titrate Fentanyl Citrate 2,000 mcg/ 100 mls @ 0 mls/hr 12/09/19 12:22 12/18/19 23:46 Sodium Chloride IV 01/08/20 12:22 100 mls INF ODILON Administration Protocol Per Protocol Midazolam HCl 100 mls @ 0 mls/hr 12/13/19 13:00 12/18/19 21:56 Versed IVPB 100 mls INF ODILON Administration Protocol Titrate Voriconazole 300 mg/ Sodium 100 mls @ 50 mls/hr 12/18/19 09:00 12/19/19 09:00 Chloride IVPB 100 mls Q12HR ODILON Administration Levalbuterol HCl 0.63 mg 12/04/19 15:11 12/19/19 07:27 Xopenex NEB 0.63 mg [id number] ODILON Administration Lidocaine/Prilocaine 5 gm 12/02/19 13:06 12/14/19 20:54 Emla 2.5% TOP 1 applic PRN PRN Administration INJECTION SITE Lorazepam 2 mg 12/09/19 12:22 12/12/19 08:45 Ativan SLOW IVP 01/08/20 12:22 2 mg Q1H PRN Administration Breakthrough agitation Methylprednisolone Sodium Succinate 80 mg 12/15/19 09:00 12/19/19 09:00 Solu-Medrol IVP 80 mg DAILY ODILON Administration Metoclopramide HCl 10 mg 12/11/19 17:00 12/19/19 05:07 Reglan IVP Not Given Q6H ODILON Mineral Oil/White Petrolatum 0 gm 12/04/19 14:04 12/04/19 14:49 Aquaphor 99 Gm TOP 1 applic PRN PRN Administration SKIN Miscellaneous Medication 0 gm 12/03/19 20:54 12/12/19 09:22 Preparation H Ointment TOP 1 appful TIDPRN PRN Administration Hemorrhoids Miscellaneous Medication 1 pkt 12/09/19 07:31 12/12/19 21:00 Phos-Nak PO 1 pkt TIDPRN PRN Administration FOR PHOS LEVEL 1.0 - 1.8 Pantoprazole Sodium 40 mg 12/06/19 09:00 12/19/19 09:00 Protonix IVP 40 mg DAILY ODILON Administration Potassium Chloride 40 meq 12/09/19 07:31 12/18/19 06:08 Klor-Con PER TUBE 40 meq ASDIR PRN Administration FOR SERUM K+ 2.5-3.5 Propofol 1,000 mg 12/09/19 12:22 12/18/19 00:23 Diprivan IV 01/08/20 12:22 1,000 mg INF PRN Administration TO ACHIEVE GOAL RASS Protocol Saccharomyces Boulardii 250 mg 12/03/19 09:00 12/19/19 09:02 Florastor PO 250 mg DAILY ODILON Administration Senna/Docusate Sodium 1 tab 12/14/19 21:00 12/19/19 09:02 Senokot S PO Not Given BID ODILON Simethicone 80 mg 12/08/19 21:00 12/19/19 09:02 Mylicon Chewable PO 80 mg BID ODILON Administration Sodium Chloride 10 ml 12/02/19 09:00 12/19/19 09:02 Flush - Normal Saline IVF 10 ml Q12HR ODILON Administration Sodium Chloride 10 ml 12/02/19 01:25 12/15/19 08:33 Flush - Normal Saline IVF 10 ml PRN PRN Administration Saline Flush Sodium Chloride 10 ml 12/05/19 20:22 12/06/19 11:40 Normal Saline Pf FS 10 ml PRN PRN Administration RECONSTITUTION - Exam Eye: PERRL, scleral icterus Heart: RRR, no murmur, no gallops, no rubs, normal peripheral pulses Respiratory: rales (and rhonchi at both bases) Gastrointestinal: soft, non-tender, non-distended, normal bowel sounds Extremities: 2+ LE edema (+ edema in both lower extremities,) Hosp A/P (1) Acute and chronic respiratory failure with hypoxia Code(s): J96.21 - ACUTE AND CHRONIC RESPIRATORY FAILURE WITH HYPOXIA Status: Acute (2) Malignant pleural effusion Code(s): J91.0 - MALIGNANT PLEURAL EFFUSION Status: Acute (3) Mucositis (ulcerative) due to antineoplastic therapy Code(s): K12.31 - ORAL MUCOSITIS (ULCERATIVE) DUE TO ANTINEOPLASTIC THERAPY Status: Acute (4) Neutropenic fever Code(s): D70.9 - NEUTROPENIA, UNSPECIFIED; R50.81 - FEVER PRESENTING WITH CONDITIONS CLASSIFIED ELSEWHERE Status: Acute (5) Hypertension Code(s): I10 - ESSENTIAL (PRIMARY) HYPERTENSION Status: Acute Qualifiers: Hypertension type: essential hypertension Qualified Code(s): I10 - Essential (primary) hypertension (6) Stage IV carcinoma of breast Code(s): C50.919 - MALIGNANT NEOPLASM OF UNSP SITE OF UNSPECIFIED FEMALE BREAST Status: Chronic - Plan * Acute on chronic respiratory failure- due to malignant pleural effusion ,now with bilateral PleurX catheters - She is not yet weanable- continue Vent management as per PCCM * Agree with negative fluid balance when possible- serum sodium is elevated today- free water has been increased via the tube * Neutropenic fever- Neutropenia has resolved-Continue Voriconazole, Meropenem and Solumedrol * Severe anemia- likely related to chemotherapy- stable- transfuse as needed * Thrombocytopenia- slightly improved- Lovenox was re-started * HTN- blood pressure is stable * Hypokalemia and Hypocalcemia- better today- continue to replace * Diarrhea- C. Diff screen was negative- will add Metamucil * Symptom Management
[2019-12-19] MEDS ORDERED: Metamucil PACK PER TUBE SCH (11:45)
[2019-12-19] MEDS ORDERED: fentaNYL Citrate/PF 2,000 MCG in Sodium Chloride 0.9% 60 ML IV SCH (12:45)
--- NOTE | 2019-12-19 13:30 | PRG ---
DATE OF SERVICE: 12/19/2019 SUBJECTIVE: Melissa Guallpa remains mechanically ventilated. Her brother requested that her Versed dosing be gradually decreased. OBJECTIVE: VITAL SIGNS: Respiratory rate is 20, FiO2 is at 50%, blood pressure 91/55. Remainder of her exam is unchanged. IMPRESSION: 1. Widely metastatic breast cancer with no future therapeutic options regarding her breast cancer. 2. Patchy bilateral infiltrates on chest CT, they are secondary to malignancy, pneumonia with third-spacing compliance remains poor. 3. Anemia of chronic disease. 4. Thrombocytopenia after chemotherapy is resolving. 5. Massive liver involvement with breast cancer. 6. Paraneoplastic muscle weakness. We will continue supportive care. Job ID: [id number]
[2019-12-19] MEDS: fentaNYL Citrate/PF 2,000 MCG in Sodium Chloride 0.9% 60 ML IV SCH (13:53)
[2019-12-19] MEDS: Calcium Carbonate 600 MG TAB PER TUBE SCH ×2 (16:48→20:54)
[2019-12-19] MEDS: Propofol 1,000 MG/100 ML VIAL IV PRN (17:30)
[2019-12-19] MEDS: Enoxaparin Sodium 30 MG/0.3 ML SYRINGE SC SCH (20:54)
[2019-12-20] MEDS: Metoclopramide HCl 10 MG/2 ML VIAL IVP SCH ×5 (01:19→23:19)
[2019-12-20] MEDS: fentaNYL Citrate/PF 2,000 MCG in Sodium Chloride 0.9% 60 ML IV SCH ×2 (02:29→16:18)
[2019-12-20 05:14] LABS: Anion Gap 11 mmol/L (10-20); BUN (Urea Nitrogen) 25 mg/dL (7.0-18.7); Calc. Creatinine Clearance 176 mL/min (70-130); Calcium 6.8 mg/dL (7.8-10.44); Carbon Dioxide 31 mmol/L (22-29); Chloride 106 mmol/L (98-107); Estimated GFR-MDRD Greater than 90; Glucose 146 mg/dL (70-105); Potassium 4.1 mmol/L (3.5-5.1); Sodium 144 mmol/L (136-145)
[2019-12-20] MEDS: MEROPENEM 1 GM/50 ML 1 GM in Premix Bag 1 BAG IVPB SCH ×2 (05:35→14:12)
[2019-12-20 06:08] LABS: Hemoglobin 8.2 g/dL (12.0-16.0); Mean Corpuscular Hemoglobin 31.6 pg (27.0-31.0); Mean Platelet Volume 11.6 fL (7.4-10.4); Platelet Count 147 thou/uL (130-400); RBC Distribution Width 23.6 % (11.5-14.5)
[2019-12-20 07:16] LABS: Anisocytosis MODERATE=16-30 cells (100X) (0-5/hpf); Band 16 % (5-11); Basophilic Stippling SLIGHT = 1-2 cells (100X) (None Seen); Lymphocytes 12 % (21-51); MDiff Complete? YES; Macrocytosis SLIGHT = 6-15 cells (100X) (0-5/hpf); Monocytes 8 % (0-10); Myelocyte 2 % (0-0); Neutrophil 62 % (42-75); Nucleated RBC 20 % (0); Polychromasia SLIGHT = 2-3 cells (100X) (0-2/hpf); White Blood Cell (WBC) Count 10.8 thou/uL (4.8-10.8)
[2019-12-20] MEDS: Levalbuterol HCl 0.63 MG/3 ML NEB NEB SCH ×3 (07:24→22:11)
[2019-12-20] MEDS: methylPREDNISolone Sod Succ/PF 125 MG/2 ML VIAL IVP SCH (09:43)
[2019-12-20] MEDS: Pantoprazole 40 MG VIAL IVP SCH (09:44)
[2019-12-20] MEDS: Simethicone Chewable 80 MG TAB PO SCH ×2 (09:44→20:15)
[2019-12-20] MEDS: Saccharomyces boulardii 250 MG CAP PO SCH (09:44)
[2019-12-20] MEDS: Calcium Carbonate 600 MG TAB PER TUBE SCH ×3 (09:44→20:15)
[2019-12-20] MEDS: Senokot S 8.6-50 MG TAB PO SCH ×2 (09:45→20:16)
[2019-12-20] MEDS: Metamucil PACK PER TUBE SCH (09:45)
--- NOTE | 2019-12-20 10:04 | PRG ---
DATE OF SERVICE: 12/20/2019 A 35 minutes of critical care time. SUBJECTIVE: The patient remains intubated on mechanical ventilation. She will wake up and follow commands for me. OBJECTIVE: VITAL SIGNS: O2 saturation 96%, blood pressure 127/66, pulse 103, respirations 23, and temperature 97.6. HEENT: Unremarkable. NECK: No JVD. LUNGS: Coarse breath sounds. CARDIOVASCULAR: S1 and S2. Regular. ABDOMEN: Soft. EXTREMITIES: Edematous. LABORATORY DATA: Sodium 144, potassium 4.1, chloride 106, CO2 of 31, BUN 25, creatinine 0.5, and glucose 146. White blood cell count 10, hematocrit 26.5, and platelet count 147. ASSESSMENT: 1. Widely metastatic breast cancer with apparently no future chemotherapeutic options available. 2. Patchy infiltrates on CT of the chest, which seem secondary to malignancy, less likely due to infection. 3. Massive liver involvement. 4. Paraneoplastic muscle weakness. PLAN: 1. The patient's lung compliance remains extremely low. For the time being, she is subsisting on mechanical ventilation. I do not see any opportunity to wean her further at this time. 2. She continues on meropenem and Vfend at the direction of Dr. Eng. 3. Up in a chair as tolerated. 4. If family wants to continue along this course, we will probably have to proceed with tracheostomy placement soon. Job ID: [id number]
--- NOTE | 2019-12-20 11:48 | PDOC.HOSPP ---
- Subjective Encounter Date: 12/20/19 Encounter Time: 11:46 Subjective: Ms. Guallpa was seen today in follow-up of respiratory failure and metastatic breast cancer. - Objective Vital Signs & Weight: Vital Signs (12 hours) Temp Pulse Resp BP 12/20/19 10:39 110 H 156/91 H 12/20/19 07:25 86 104/58 L 12/20/19 06:00 20 12/20/19 04:00 97.6 F 20 12/20/19 02:03 97 94/53 L 12/20/19 02:00 12/20/19 00:00 97.6 F 20 Weight Admit Weight 143 lb 6.4 oz Weight 164 lb 3.91 oz Most Recent Monitor Data Heart Rate from ECG 100 NIBP 124/76 NIBP BP-Mean 92 Respiration from ECG 20 SpO2 100 I&O: 12/19/19 12/20/19 12/21/19 06:59 06:59 06:59 Intake Total 3750.4 4098.1 45.5 Output Total 2475 1495 Balance 1275.4 2603.1 45.5 Result Diagrams: 12/20/19 04:15 12/20/19 04:15 Hospitalist ROS - Medication Medications: Active Medications Generic Name Dose Route Start Last Admin Trade Name Freq PRN Reason Stop Dose Admin Acetaminophen 650 mg 12/02/19 19:15 12/10/19 04:22 Tylenol Elixir PO 650 mg Q4H PRN Administration Headache/Fever or Pain (1-3) Bisacodyl 10 mg 12/02/19 18:33 12/16/19 08:53 Dulcolax [place] 10 mg DAILYPRN PRN Administration Constipation Calcium Carbonate 600 mg 12/19/19 15:00 12/20/19 09:44 Caltrate PER TUBE 600 mg TID ODILON Administration Cholecalciferol 3 ml 12/19/19 09:00 12/18/19 11:49 Vitamin D PO 3 ml DAILY ODILON Administration Enoxaparin Sodium 30 mg 12/18/19 21:00 12/19/19 20:54 Lovenox SC 30 mg 2100 ODILON Administration Potassium Phosphate 9 mmol/ 103 mls @ 25.75 mls/hr 12/09/19 07:31 12/09/19 22 :03 Sodium Chloride IVPB 103 mls ASDIR PRN Administration Phosphate 1.0-1.8 Norepinephrine Bitartrate 250 mls @ 0 mls/hr 12/09/19 12:14 12/09/19 20:22 Levophed IVPB 250 mls PRN PRN Administration To maintain MAP > 65 Protocol Titrate Midazolam HCl 100 mls @ 0 mls/hr 12/13/19 13:00 12/19/19 11:45 Versed IVPB 100 mls INF ODILON Administration Protocol Titrate Voriconazole 300 mg/ Sodium 100 mls @ 50 mls/hr 12/18/19 09:00 12/19/19 20:55 Chloride IVPB 100 mls Q12HR ODILON Administration Meropenem 1 gm/ Device 50 mls @ 100 mls/hr 12/19/19 14:00 12/20/19 05:35 IVPB 12/20/19 14:01 50 mls Q8HR ODILON Administration Fentanyl Citrate 2,000 mcg/ 100 mls @ 0 mls/hr 12/19/19 14:00 12/20/19 02:29 Sodium Chloride IV 100 mls INF ODILON Administration Protocol Per Protocol Levalbuterol HCl 0.63 mg 12/04/19 15:11 12/20/19 07:24 Xopenex NEB 0.63 mg D2OT-RM ODILON Administration Lidocaine/Prilocaine 5 gm 12/02/19 13:06 12/14/19 20:54 Emla 2.5% TOP 1 applic PRN PRN Administration INJECTION SITE Methylprednisolone Sodium Succinate 80 mg 12/15/19 09:00 12/20/19 09:43 Solu-Medrol IVP 80 mg DAILY ODILON Administration Metoclopramide HCl 10 mg 12/11/19 17:00 12/20/19 05:35 Reglan IVP Not Given Q6H ODILON Mineral Oil/White Petrolatum 0 gm 12/04/19 14:04 12/04/19 14:49 Aquaphor 99 Gm TOP 1 applic PRN PRN Administration SKIN Miscellaneous Medication 0 gm 12/03/19 20:54 12/12/19 09:22 Preparation H Ointment TOP 1 appful TIDPRN PRN Administration Hemorrhoids Miscellaneous Medication 1 pkt 12/09/19 07:31 12/12/19 21:00 Phos-Nak PO 1 pkt TIDPRN PRN Administration FOR PHOS LEVEL 1.0 - 1.8 Pantoprazole Sodium 40 mg 12/06/19 09:00 12/20/19 09:44 Protonix IVP 40 mg DAILY ODILON Administration Potassium Chloride 40 meq 12/09/19 07:31 12/18/19 06:08 Klor-Con PER TUBE 40 meq ASDIR PRN Administration FOR SERUM K+ 2.5-3.5 Propofol 1,000 mg 12/09/19 12:22 12/19/19 17:30 Diprivan IV 01/08/20 12:22 1,000 mg INF PRN Administration TO ACHIEVE GOAL RASS Protocol Psyllium Hydrophilic Mucilloid 1 pk 12/20/19 09:00 12/20/19 09:45 Metamucil PER TUBE Not Given DAILY ODILON Saccharomyces Boulardii 250 mg 12/03/19 09:00 12/20/19 09:44 Florastor PO 250 mg DAILY ODILON Administration Senna/Docusate Sodium 1 tab 12/14/19 21:00 12/20/19 09:45 Senokot S PO Not Given BID ODILON Simethicone 80 mg 12/08/19 21:00 12/20/19 09:44 Mylicon Chewable PO 80 mg BID ODILON Administration Sodium Chloride 10 ml 12/02/19 09:00 12/20/19 09:45 Flush - Normal Saline IVF 10 ml Q12HR ODILON Administration Sodium Chloride 10 ml 12/02/19 01:25 12/15/19 08:33 Flush - Normal Saline IVF 10 ml PRN PRN Administration Saline Flush Sodium Chloride 10 ml 12/05/19 20:22 12/06/19 11:40 Normal Saline Pf FS 10 ml PRN PRN Administration RECONSTITUTION - Exam Eye: PERRL, anicteric sclera Heart: RRR, no murmur, no gallops, no rubs, normal peripheral pulses Respiratory: rhonchi (+ rhonchi bilaterally and decreased breath sounds at the bases.) Gastrointestinal: soft, non-tender, non-distended, normal bowel sounds, no palpable masses Extremities: no cyanosis, 1+ LE edema Hosp A/P (1) Acute and chronic respiratory failure with hypoxia Code(s): J96.21 - ACUTE AND CHRONIC RESPIRATORY FAILURE WITH HYPOXIA Status: Acute (2) Malignant pleural effusion Code(s): J91.0 - MALIGNANT PLEURAL EFFUSION Status: Acute (3) Mucositis (ulcerative) due to antineoplastic therapy Code(s): K12.31 - ORAL MUCOSITIS (ULCERATIVE) DUE TO ANTINEOPLASTIC THERAPY Status: Acute (4) Neutropenic fever Code(s): D70.9 - NEUTROPENIA, UNSPECIFIED; R50.81 - FEVER PRESENTING WITH CONDITIONS CLASSIFIED ELSEWHERE Status: Acute (5) Hypertension Code(s): I10 - ESSENTIAL (PRIMARY) HYPERTENSION Status: Acute Qualifiers: Hypertension type: essential hypertension Qualified Code(s): I10 - Essential (primary) hypertension (6) Stage IV carcinoma of breast Code(s): C50.919 - MALIGNANT NEOPLASM OF UNSP SITE OF UNSPECIFIED FEMALE BREAST Status: Chronic - Plan * Acute on chronic respiratory failure- due to malignant pleural effusion ,now with bilateral PleurX catheters - * Her sedation has been reduced * She is up in a Neuro-chair * Agree with negative fluid balance when possible- serum sodium is elevated today- free water has been increased via the tube * Neutropenic fever- Neutropenia has resolved-Continue Voriconazole, Meropenem and Solumedrol * Severe anemia- likely related to chemotherapy- stable- * Thrombocytopenia- improved * HTN- blood pressure is stable * Hypokalemia and Hypocalcemia- better today- continue to replace * Symptom Management
[2019-12-20] MEDS: Cholecalciferol 10 MCG/ML (Vitamin D3) 50 ML BOT PO SCH (12:38)
[2019-12-20] MEDS ORDERED: Metolazone 5 MG TAB PER TUBE SCH (12:45)
[2019-12-20] MEDS ORDERED: Furosemide 100 MG in Sodium Chloride 0.9% 100 ML IVPB SCH (12:45)
--- NOTE | 2019-12-20 14:03 | PRG ---
DATE OF SERVICE: 12/20/2019 SERVICE: Nephrology. SUBJECTIVE: A 39-year-old female with metastatic breast cancer, seen in followup for electrolyte derangements and volume overload. The patient is still intubated. She is getting free water flushes and tube feedings. OBJECTIVE: VITAL SIGNS: Temperature 97.6, pulse 86, respiratory rate 23, SpO2 96% on FiO2 60%, blood pressure is 104/58. Intake and output in the last 24 hours showed total intake of 4098 with total output of 1495. Weight has increased from 143 to 164 since admission. GENERAL: Comfortable female, in no obvious distress. Afebrile. Anicteric. Acyanotic. HEENT: Normocephalic, atraumatic. ET tube is in place. CARDIOVASCULAR: Regular rhythm and rate. Normal heart sounds 1 and 2. RESPIRATORY: Ventilator transmitted breath sounds heard in all lung zones. GI: Mildly enlarged, soft, nontender with normal bowel sounds. UROGENITAL: Fields catheter is in place draining some urine. EXTREMITIES: mild edema of the extremities especially on the left side noted. AUDIO VISUAL DIRECTOR: The patient is still sedated. She however is awake and nods to questions. DIAGNOSTIC DATA: CBC showed WBC count of 10.8, hemoglobin of 8.3, platelets of 147. Chemistry showed sodium 144, potassium 4.1, chloride 106, CO2 of 31, BUN 25, creatinine 0.51, glucose 146, calcium 6.8. ASSESSMENT: 1. Hypernatremia: Due to free water deficit. Improved with provision of free water via NG tube. 2. Volume overload: The patient continued to intravascular contraction, though she still has significant edema and weight gain since admission. Weight has increased from 143 to 164 currently. 3. Hypokalemia, repleted. 4. Hypocalcemia. 5. Vitamin D deficiency, on supplementation. 6. Acute on chronic respiratory failure, on mechanical ventilation: Multifactorial in etiology. PLAN: 1. We will aggressively diurese the patient to see if we will facilitate extubation. We will start Lasix infusion with metolazone and albumin to see if third-spacing fluid be mobilized. 2. We will monitor electrolytes and replete as indicated. 3. Continue calcium and vitamin D supplementation. 4. Further treatment to follow depending on hospital course. Job ID: [id number]
--- NOTE | 2019-12-20 14:16 | PRG ---
DATE OF SERVICE: 12/19/2019 SERVICE: Nephrology. SUBJECTIVE: A 39-year-old female with metastatic breast cancer, currently intubated and mechanically ventilated with respiratory failure. Nephrology is following the patient for electrolyte derangement and volume management. No new problem. The patient is more awake today. Still on tube feeding with free water flushes. OBJECTIVE: VITAL SIGNS: Temperature 98.6, pulse 92, respiratory rate 24, SpO2 of 100% on FiO2 of 60%, blood pressure is 85/63. Intake and output in the last 24 hours showed total intake of 3750 with total output of 2475. Weight is 164, which has increased significantly from admission level of 143. GENERAL: Female, in no obvious distress. Awake despite sedatives. Seems to comprehend, alert to person. HEENT: Normocephalic and atraumatic. ET tube is in place. NECK: No JVD appreciated. CARDIOVASCULAR: Regular rhythm and rate. Normal heart sounds one and two. RESPIRATORY: Fair air entry bilaterally with ventilator transmitted breath sounds heard in all lung zones. GI: Full, very mildly enlarged, soft, nontender with normal bowel sounds. UROGENITAL: Fields catheter is in place draining urine. EXTREMITIES: Trace to mild edema of both lower extremities and left upper extremity. Right upper extremity is grossly normal with no edema. ABA THERAPIST: The patient is sedated. She is however awake with stimulation and opens eyes and makes eye contact. DIAGNOSTIC DATA: CBC showed WBC count of 9.5, hemoglobin of 7.6, platelet of 115. Chemistry showed sodium 147, potassium 4.2, chloride 109, CO2 of 31, BUN 24, creatinine 0.53, glucose 169, calcium 6.2. IMAGING STUDIES: Chest x-ray showed some improvement in the intensive bilateral alveolar and ground-glass opacity as well as opacity changes. Small pleural effusion also is noted. ASSESSMENT: 1. Hypernatremia: Due to free water deficit. Most likely related to diuretic therapy with Lasix yesterday. 2. Volume overload: Despite increase in weight and edema, the patient still behaves like somebody with intravascular contraction. She got Lasix yesterday with increase in both CO2 and BUN. Heart rate has improved significantly with albumin and antimicrobial. 3. Hypocalcemia due to vitamin D deficiency and poor oral intake. Improved with supplementation. 4. Vitamin D deficiency on supplementation. PLAN: 1. We will increase free water flushes via NG tube to 300 mL per 4 hours for 12 hours. After 12 hours, we will revert to 200 mL per 4 hour. 2. We will hold diuretic therapy today. We will plan on starting thiazide diuretics hopefully tomorrow. We will start calcium supplementation. 3. Further treatment to follow depending on hospital course. Other treatment as per data analysis assistant. Job ID: [id number]
[2019-12-20] MEDS ORDERED: Albumin 25% 25 GM/100 ML BOT IVPB SCH (20:00)
[2019-12-20] MEDS: Enoxaparin Sodium 30 MG/0.3 ML SYRINGE SC SCH (20:15)
[2019-12-21 00:04] LABS: Anion Gap 14 mmol/L (10-20); BUN (Urea Nitrogen) 29 mg/dL (7.0-18.7); Calc. Creatinine Clearance 152 mL/min (70-130); Calcium 7.8 mg/dL (7.8-10.44); Carbon Dioxide 33 mmol/L (22-29); Chloride 99 mmol/L (98-107); Estimated GFR-MDRD Greater than 90; Glucose 156 mg/dL (70-105); Magnesium 2.5 mg/dL (1.6-2.6); Potassium 3.4 mmol/L (3.5-5.1); Sodium 143 mmol/L (136-145)
[2019-12-21] MEDS: Metoclopramide HCl 10 MG/2 ML VIAL IVP SCH ×4 (04:50→22:14)
[2019-12-21] MEDS: fentaNYL Citrate/PF 2,000 MCG in Sodium Chloride 0.9% 60 ML IV SCH ×2 (06:22→19:47)
[2019-12-21] MEDS ORDERED: Furosemide 100 MG in Sodium Chloride 0.9% 90 ML IVPB SCH ×2 (06:30→07:46)
[2019-12-21] MEDS: Levalbuterol HCl 0.63 MG/3 ML NEB NEB SCH ×3 (06:34→22:14)
[2019-12-21 07:18] LABS: Albumin 3.7 g/dL (3.5-5.0); Anion Gap 12 mmol/L (10-20); BUN (Urea Nitrogen) 31 mg/dL (7.0-18.7); Bilirubin, Total 4.2 mg/dL (0.2-1.2); Calc. Creatinine Clearance 134 mL/min (70-130); Calcium 7.8 mg/dL (7.8-10.44); Carbon Dioxide 35 mmol/L (22-29); Chloride 98 mmol/L (98-107); Estimated GFR-MDRD Greater than 90; Globulin 2.6 g/dL (2.4-3.5); Glucose 169 mg/dL (70-105); Potassium 3.8 mmol/L (3.5-5.1); Protein, Total 6.3 g/dL (6.0-8.3); Sodium 141 mmol/L (136-145)
[2019-12-21 07:19] LABS: ALT (SGPT) 40 U/L (8-55); AST (SGOT) 108 U/L (5-34); Alkaline Phosphatase 856 U/L (40-110); Magnesium 2.4 mg/dL (1.6-2.6); Phosphorus 2.8 mg/dL (2.3-4.7)
[2019-12-21] MEDS ORDERED: Metolazone 5 MG TAB PER TUBE SCH (07:45)
[2019-12-21] MEDS: Calcium Carbonate 600 MG TAB PER TUBE SCH ×3 (07:46→21:22)
[2019-12-21] MEDS: Pantoprazole 40 MG VIAL IVP SCH (07:46)
[2019-12-21] MEDS: methylPREDNISolone Sod Succ/PF 125 MG/2 ML VIAL IVP SCH (07:46)
[2019-12-21] MEDS: Saccharomyces boulardii 250 MG CAP PO SCH (07:46)
[2019-12-21] MEDS: Simethicone Chewable 80 MG TAB PO SCH ×2 (08:30→21:23)
[2019-12-21] MEDS: Senokot S 8.6-50 MG TAB PO SCH ×2 (08:30→20:56)
[2019-12-21] MEDS: Metamucil PACK PER TUBE SCH (08:42)
--- NOTE | 2019-12-21 08:43 | PRG ---
DATE OF SERVICE: 12/21/2019 SERVICE: Nephrology. SUBJECTIVE: A 39-year-old female seen in followup for electrolyte derangement and fluid overload. The patient with metastatic breast cancer is intubated for respiratory failure. Remain intubated. Diuresed well with IV Lasix and metolazone. OBJECTIVE: VITAL SIGNS: Temperature 97.7, pulse 111, respiratory rate 20, SpO2 of 97% on 40% FiO2, blood pressure is 99/60. Intake and output in the last 24 hours showed total intake of 3480 with total output of 7820, negative 4339. GENERAL: Female, in no obvious distress. Afebrile. HEENT: Normocephalic, atraumatic. ET tube is in place. CARDIOVASCULAR: Regular rhythm and rate. Normal heart sounds 1 and 2. Tachycardic. RESPIRATORY: Ventilator transmitted breath sounds heard in all lung zones. GI: Full, soft, nontender, nondistended with normal bowel sounds. UROGENITAL: Fields catheter in place draining urine. EXTREMITIES: Trace to mild edema of the extremities noted. COOKY PACKER: The patient is awake, though sedated. Responds to question. DIAGNOSTIC DATA: CMP showed sodium 141, potassium 3.8, chloride 98, CO2 of 35, BUN 31, creatinine 0.6, glucose 169, calcium 7.8, phosphorus 2.8, magnesium 2.4, bilirubin 4.2, AST 108, ALT 40, alkaline phosphatase 856, total protein 6.3, albumin 3.7. ASSESSMENT: 1. Hypernatremia: Due to free water deficit. Resolved with provision of free water via NG tube. 2. Volume overload. The patient diuresed well with Lasix infusion and metolazone. 3. Hypophosphatemia: Repleted. 4. Hypokalemia: Due to diuretic therapy. 5. Metabolic alkalosis: Due to diuretic therapy. PLAN: 1. We will decrease Lasix infusion from 5 mg every hour to 2.5 mg every hour. We will continue metolazone. We will also give albumin to help with mobilization of third space fluid. 2. We will replete serum potassium with potassium chloride. 3. We will repeat BMP later today and adjust diuretic therapy as appropriate. Further treatment to follow depending on hospital course. Job ID: [id number]
[2019-12-21] MEDS: Cholecalciferol 10 MCG/ML (Vitamin D3) 50 ML BOT PO SCH (09:25)
--- NOTE | 2019-12-21 10:25 | PDOC.HOSPP ---
- Subjective Encounter Date: 12/21/19 Encounter Time: 10:23 Subjective: Ms. Guallpa was seen today in follow-up of respiratory failure. She is more alert, since the sedation has been reduced. She is trying to communicate. She follows commands. - Objective Vital Signs & Weight: Vital Signs (12 hours) Temp Pulse Resp BP Pulse Ox 12/21/19 07:20 20 97 12/21/19 06:36 111 H 114/72 12/21/19 06:34 105 H 24 H 97 12/21/19 06:00 20 12/21/19 04:00 97.7 F 20 12/21/19 02:05 78 124/77 12/21/19 02:00 20 12/21/19 00:00 97.9 F 29 H Weight Admit Weight 143 lb 6.4 oz Weight 147 lb 4.301 oz Most Recent Monitor Data Heart Rate from ECG 95 NIBP 123/70 NIBP BP-Mean 87 Respiration from ECG 22 SpO2 100 I&O: 12/20/19 12/21/19 12/22/19 06:59 06:59 06:59 Intake Total 4098.1 3480.2 333.4 Output Total 1495 7820 1340 Balance 2603.1 -4339.8 -1006.6 Result Diagrams: 12/20/19 04:15 12/21/19 04:00 Hospitalist ROS - Medication Medications: Active Medications Generic Name Dose Route Start Last Admin Trade Name Freq PRN Reason Stop Dose Admin Acetaminophen 650 mg 12/02/19 19:15 12/10/19 04:22 Tylenol Elixir PO 650 mg Q4H PRN Administration Headache/Fever or Pain (1-3) Bisacodyl 10 mg 12/02/19 18:33 12/16/19 08:53 Dulcolax [place] 10 mg DAILYPRN PRN Administration Constipation Calcium Carbonate 600 mg 12/19/19 15:00 12/21/19 07:46 Caltrate PER TUBE 600 mg TID ODILON Administration Cholecalciferol 3 ml 12/19/19 09:00 12/21/19 09:25 Vitamin D PO Not Given DAILY ODILON Enoxaparin Sodium 30 mg 12/18/19 21:00 12/20/19 20:15 Lovenox SC 30 mg 2100 ODILON Administration Potassium Phosphate 9 mmol/ 103 mls @ 25.75 mls/hr 12/09/19 07:31 12/09/19 22 :03 Sodium Chloride IVPB 103 mls ASDIR PRN Administration Phosphate 1.0-1.8 Norepinephrine Bitartrate 250 mls @ 0 mls/hr 12/09/19 12:14 12/09/19 20:22 Levophed IVPB 250 mls PRN PRN Administration To maintain MAP > 65 Protocol Titrate Midazolam HCl 100 mls @ 0 mls/hr 12/13/19 13:00 12/21/19 08:34 Versed IVPB 100 mls INF ODILON Administration Protocol Titrate Voriconazole 300 mg/ Sodium 100 mls @ 50 mls/hr 12/18/19 09:00 12/21/19 09:21 Chloride IVPB 100 mls Q12HR ODILON Administration Fentanyl Citrate 2,000 mcg/ 100 mls @ 0 mls/hr 12/19/19 14:00 12/21/19 06:22 Sodium Chloride IV 100 mls INF ODILON Administration Protocol Per Protocol Levalbuterol HCl 0.63 mg 12/04/19 15:11 12/21/19 06:34 Xopenex NEB 0.63 mg [id number] ODILON Administration Lidocaine/Prilocaine 5 gm 12/02/19 13:06 12/14/19 20:54 Emla 2.5% TOP 1 applic PRN PRN Administration INJECTION SITE Methylprednisolone Sodium Succinate 80 mg 12/15/19 09:00 12/21/19 07:46 Solu-Medrol IVP 80 mg DAILY ODILON Administration Metoclopramide HCl 10 mg 12/11/19 17:00 12/21/19 04:50 Reglan IVP Not Given Q6H ODILON Mineral Oil/White Petrolatum 0 gm 12/04/19 14:04 12/04/19 14:49 Aquaphor 99 Gm TOP 1 applic PRN PRN Administration SKIN Miscellaneous Medication 0 gm 12/03/19 20:54 12/12/19 09:22 Preparation H Ointment TOP 1 appful TIDPRN PRN Administration Hemorrhoids Miscellaneous Medication 1 pkt 12/09/19 07:31 12/12/19 21:00 Phos-Nak PO 1 pkt TIDPRN PRN Administration FOR PHOS LEVEL 1.0 - 1.8 Pantoprazole Sodium 40 mg 12/06/19 09:00 12/21/19 07:46 Protonix IVP 40 mg DAILY ODILON Administration Potassium Chloride 40 meq 12/09/19 07:31 12/21/19 00:22 Klor-Con PER TUBE 40 meq ASDIR PRN Administration FOR SERUM K+ 2.5-3.5 Propofol 1,000 mg 12/09/19 12:22 12/19/19 17:30 Diprivan IV 01/08/20 12:22 1,000 mg INF PRN Administration TO ACHIEVE GOAL RASS Protocol Psyllium Hydrophilic Mucilloid 1 pk 12/20/19 09:00 12/21/19 08:42 Metamucil PER TUBE Not Given DAILY ODILON Saccharomyces Boulardii 250 mg 12/03/19 09:00 12/21/19 07:46 Florastor PO 250 mg DAILY ODILON Administration Senna/Docusate Sodium 1 tab 12/14/19 21:00 12/21/19 08:30 Senokot S PO Not Given BID ODILON Simethicone 80 mg 12/08/19 21:00 12/21/19 08:30 Mylicon Chewable PO Not Given BID ODILON Sodium Chloride 10 ml 12/02/19 09:00 12/21/19 08:30 Flush - Normal Saline IVF 10 ml Q12HR ODILON Administration Sodium Chloride 10 ml 12/02/19 01:25 12/15/19 08:33 Flush - Normal Saline IVF 10 ml PRN PRN Administration Saline Flush Sodium Chloride 10 ml 12/05/19 20:22 12/06/19 11:40 Normal Saline Pf FS 10 ml PRN PRN Administration RECONSTITUTION - Exam Eye: PERRL, anicteric sclera Heart: RRR, no murmur, no gallops, no rubs, normal peripheral pulses Respiratory: CTAB (+ rhonchi bilaterally) Gastrointestinal: soft, non-tender, non-distended, normal bowel sounds, no palpable masses Extremities: no cyanosis, 1+ LE edema (+ mild edema in her hands, and lower extremities) Hosp A/P (1) Acute and chronic respiratory failure with hypoxia Code(s): J96.21 - ACUTE AND CHRONIC RESPIRATORY FAILURE WITH HYPOXIA Status: Acute (2) Malignant pleural effusion Code(s): J91.0 - MALIGNANT PLEURAL EFFUSION Status: Acute (3) Mucositis (ulcerative) due to antineoplastic therapy Code(s): K12.31 - ORAL MUCOSITIS (ULCERATIVE) DUE TO ANTINEOPLASTIC THERAPY Status: Acute (4) Neutropenic fever Code(s): D70.9 - NEUTROPENIA, UNSPECIFIED; R50.81 - FEVER PRESENTING WITH CONDITIONS CLASSIFIED ELSEWHERE Status: Acute (5) Hypertension Code(s): I10 - ESSENTIAL (PRIMARY) HYPERTENSION Status: Acute Qualifiers: Hypertension type: essential hypertension Qualified Code(s): I10 - Essential (primary) hypertension (6) Stage IV carcinoma of breast Code(s): C50.919 - MALIGNANT NEOPLASM OF UNSP SITE OF UNSPECIFIED FEMALE BREAST Status: Chronic - Plan * Acute on chronic respiratory failure- due to malignant pleural effusion ,now with bilateral PleurX catheters - * Her sedation has been reduced * She has been placed on a Lasix drip, as well as Metolazone overnight * She is now in negative fluid balance. She had a net negative fluid balance of over 4 liters, and her weight is close to her admission weight * Lasix drip has been reduced to 2.5mg/hr * Neutropenic fever- Neutropenia has resolved-She is now off Meropenem, continue Voriconazole * Anemia due to chemotherapy- stable * Thrombocytopenia- improved * HTN- blood pressure is stable * Hypokalemia and Hypocalcemia-corrected * Severe muscle weakness- continue PT/OT * Symptom Management
[2019-12-21] MEDS ORDERED: Albumin 25% 25 GM/100 ML BOT IVPB SCH (12:00)
[2019-12-21 17:43] LABS: Anion Gap 15 mmol/L (10-20); BUN (Urea Nitrogen) 30 mg/dL (7.0-18.7); Calc. Creatinine Clearance 130 mL/min (70-130); Carbon Dioxide 32 mmol/L (22-29); Chloride 96 mmol/L (98-107); Estimated GFR-MDRD Greater than 90; Glucose 190 mg/dL (70-105); Potassium 3.4 mmol/L (3.5-5.1); Sodium 140 mmol/L (136-145)
[2019-12-21 17:47] LABS: Hemoglobin 8.1 g/dL (12.0-16.0); Mean Corpuscular HGB CONC 31.6 g/dL (32.0-36.0); Mean Corpuscular Hemoglobin 31.1 pg (27.0-31.0); Mean Corpuscular Volume 98.3 fL (78.0-98.0); Mean Platelet Volume 11.1 fL (7.4-10.4); Platelet Count 153 thou/uL (130-400); RBC Distribution Width 24.8 % (11.5-14.5); Red Blood Cell (RBC) Count 2.62 mill/uL (4.20-5.40); White Blood Cell (WBC) Count 7.4 thou/uL (4.8-10.8)
[2019-12-21 17:48] LABS: Anisocytosis MODERATE=16-30 cells (100X) (0-5/hpf); Band 28 % (5-11); Hypochromia SLIGHT = 6-15 cells (100X) (0-5/hpf); Large Platelets SLIGHT; Lymphocytes 6 % (21-51); MDiff Complete? YES; Macrocytosis SLIGHT = 6-15 cells (100X) (0-5/hpf); Metamyelocyte 1 % (0-0); Monocytes 8 % (0-10); Myelocyte 1 % (0-0); Neutrophil 54 % (42-75); Nucleated RBC 19 % (0); Platelet Morphology Comment Appears Adequate; Polychromasia MARKED = >4 cells (100X) (0-2/hpf); Reactive Lymphocytes 2 % (0-10); Target Cells SLIGHT = 2-5 cells (100X) (0-1/hpf); Tear Drops SLIGHT = 2-5 cells (100X) (0-1/hpf)
--- NOTE | 2019-12-21 17:50 | PRG ---
DATE OF SERVICE: 12/21/2019 SUBJECTIVE: Ms. Guallpa nods that she is in pain. OBJECTIVE: VITAL SIGNS: Heart rates in the 70s, blood pressure is 117/77, respiratory rate is 24. LUNGS: Remarkable for decreased breath sounds bilaterally. HEART: Regular rhythm. ABDOMEN: Soft. EXTREMITIES: She has four-extremity edema. LABORATORY DATA: White count yesterday was 10.8. Sodium 141, potassium 3.8, chloride 98, bicarb 35, BUN 31, creatinine 0.6. She is changed back to volume ventilation today. Minute volume before and after the change is essentially the same, which is 8 to 10 L a minute. Her static compliance is 18. Her best negative inspiratory force is -25. She is still not weanable. ASSESSMENT AND PLAN: She can lift her hands off the bed, but cannot get her elbows off the bed. She only intermittently follows commands. 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 Prognosis remains extremely poor. Job ID: [id number]
[2019-12-21] MEDS: Enoxaparin Sodium 30 MG/0.3 ML SYRINGE SC SCH (21:23)
[2019-12-21] MEDS: Morphine 2 MG/ML SYRINGE SLOW IVP PRN (22:27)
[2019-12-22] MEDS: Lorazepam 2 MG/ML VIAL SLOW IVP PRN ×2 (01:22→22:05)
[2019-12-22] MEDS: Metoclopramide HCl 10 MG/2 ML VIAL IVP SCH (05:06)
[2019-12-22] MEDS: Morphine 2 MG/ML SYRINGE SLOW IVP PRN (05:06)
[2019-12-22] MEDS: Levalbuterol HCl 0.63 MG/3 ML NEB NEB SCH ×3 (06:35→22:10)
--- NOTE | 2019-12-22 08:47 | PRG ---
DATE OF SERVICE: 12/22/2019 SUBJECTIVE: Ms. Guallpa remains mechanically ventilated. Her static compliance is improved to 25. OBJECTIVE: VITAL SIGNS: Heart rate is in the 80s, blood pressure is 106/68, and respiratory rate is in the 20s. LUNGS: Clear anteriorly. HEART: Regular rhythm. ABDOMEN: Soft and distended. EXTREMITIES: Without asymmetry. LABORATORY DATA: Sodium 140, potassium 3.4, chloride 96, bicarb 32, BUN 30, and creatinine 0.62. Intake and output -6226 mL, yesterday was -4339. DIAGNOSTIC DATA: Chest radiographs, improved. IMPRESSION: 1. Status post febrile neutropenia, which quite possibly was pneumonia that was hydrated. 2. She has extremely poor lung compliance, but this is improving. The biggest issue at hand is that she has severe muscle weakness. It is unlikely that she will be able to handle secretions. In my opinion, the only way she can handle weaning from mechanical ventilation for any period of time at all would be with tracheostomy, so that suctioning could be facilitated. Job ID: [id number]
[2019-12-22] MEDS ORDERED: Furosemide 100 MG in Sodium Chloride 0.9% 90 ML IVPB SCH (09:10)
[2019-12-22 09:14] LABS: Anion Gap 14 mmol/L (10-20); BUN (Urea Nitrogen) 29 mg/dL (7.0-18.7); Calc. Creatinine Clearance 125 mL/min (70-130); Calcium 8.5 mg/dL (7.8-10.44); Carbon Dioxide 33 mmol/L (22-29); Chloride 95 mmol/L (98-107); Estimated GFR-MDRD Greater than 90; Glucose 99 mg/dL (70-105); Magnesium 2.4 mg/dL (1.6-2.6); Phosphorus 2.5 mg/dL (2.3-4.7); Potassium 3.4 mmol/L (3.5-5.1); Sodium 139 mmol/L (136-145)
[2019-12-22 09:15] LABS: Hemoglobin 8.9 g/dL (12.0-16.0); Mean Corpuscular HGB CONC 30.6 g/dL (32.0-36.0); Mean Corpuscular Hemoglobin 30.7 pg (27.0-31.0); Mean Platelet Volume 11.2 fL (7.4-10.4); Platelet Count 171 thou/uL (130-400); RBC Distribution Width 25.2 % (11.5-14.5); White Blood Cell (WBC) Count 8.9 thou/uL (4.8-10.8)
[2019-12-22 09:16] LABS: Band 7 % (5-11); Hypochromia SLIGHT = 6-15 cells (100X) (0-5/hpf); Lymphocytes 11 % (21-51); MDiff Complete? YES; Macrocytosis SLIGHT = 6-15 cells (100X) (0-5/hpf); Metamyelocyte 2 % (0-0); Monocytes 6 % (0-10); Neutrophil 74 % (42-75); Nucleated RBC 14 % (0); Platelet Morphology Comment Appears Adequate; Polychromasia MODERATE = 3-4 cells (100X) (0-2/hpf); Tear Drops SLIGHT = 2-5 cells (100X) (0-1/hpf)
[2019-12-22] MEDS ORDERED: Metolazone 5 MG TAB PER TUBE SCH (10:00)
--- NOTE | 2019-12-22 10:17 | PDOC.HOSPP ---
- Subjective Encounter Date: 12/22/19 Encounter Time: 10:16 Subjective: Ms. Guallpa was seen today in follow-up respiratory failure. She is sitting up in a Neuro-chair. She is awake and alert. - Objective Vital Signs & Weight: Vital Signs (12 hours) Temp Pulse Resp BP Pulse Ox 12/22/19 10:00 20 12/22/19 08:00 20 12/22/19 06:37 68 123/82 12/22/19 06:35 85 20 100 12/22/19 06:00 20 12/22/19 04:00 98.0 F 20 12/22/19 02:13 67 110/65 12/22/19 02:00 20 12/22/19 00:00 98.0 F 20 Weight Admit Weight 143 lb 6.4 oz Weight 141 lb 12.116 oz Most Recent Monitor Data Heart Rate from ECG 116 NIBP 140/100 NIBP BP-Mean 113 Respiration from ECG 23 SpO2 97 I&O: 12/21/19 12/22/19 12/23/19 06:59 06:59 06:59 Intake Total 3480.2 2763.4 Output Total 7820 8990 Balance -4339.8 -6226.6 Result Diagrams: 12/22/19 08:44 12/22/19 08:44 Hospitalist ROS - Medication Medications: Active Medications Generic Name Dose Route Start Last Admin Trade Name Freq PRN Reason Stop Dose Admin Acetaminophen 650 mg 12/02/19 19:15 12/10/19 04:22 Tylenol Elixir PO 650 mg Q4H PRN Administration Headache/Fever or Pain (1-3) Bisacodyl 10 mg 12/02/19 18:33 12/16/19 08:53 Dulcolax [place] 10 mg DAILYPRN PRN Administration Constipation Calcium Carbonate 600 mg 12/19/19 15:00 12/21/19 21:22 Caltrate PER TUBE 600 mg TID ODILON Administration Cholecalciferol 3 ml 12/19/19 09:00 12/21/19 09:25 Vitamin D PO Not Given DAILY ODILON Enoxaparin Sodium 30 mg 12/18/19 21:00 12/21/19 21:23 Lovenox SC 30 mg 2100 ODILON Administration Potassium Phosphate 9 mmol/ 103 mls @ 25.75 mls/hr 12/09/19 07:31 12/09/19 22 :03 Sodium Chloride IVPB 103 mls ASDIR PRN Administration Phosphate 1.0-1.8 Norepinephrine Bitartrate 250 mls @ 0 mls/hr 12/09/19 12:14 12/09/19 20:22 Levophed IVPB 250 mls PRN PRN Administration To maintain MAP > 65 Protocol Titrate Midazolam HCl 100 mls @ 0 mls/hr 12/13/19 13:00 12/21/19 08:34 Versed IVPB 100 mls INF ODILON Administration Protocol Titrate Voriconazole 300 mg/ Sodium 100 mls @ 50 mls/hr 12/18/19 09:00 12/21/19 21:23 Chloride IVPB 100 mls Q12HR ODILON Administration Fentanyl Citrate 2,000 mcg/ 100 mls @ 0 mls/hr 12/19/19 14:00 12/21/19 19:47 Sodium Chloride IV 100 mls INF ODILON Administration Protocol Per Protocol Levalbuterol HCl 0.63 mg 12/04/19 15:11 12/22/19 06:35 Xopenex NEB 0.63 mg [id number] ODILON Administration Lidocaine/Prilocaine 5 gm 12/02/19 13:06 12/14/19 20:54 Emla 2.5% TOP 1 applic PRN PRN Administration INJECTION SITE Lorazepam 2 mg 12/19/19 12:31 12/22/19 01:22 Ativan SLOW IVP 2 mg Q1H PRN Administration Breakthrough agitation Methylprednisolone Sodium Succinate 80 mg 12/15/19 09:00 12/21/19 07:46 Solu-Medrol IVP 80 mg DAILY ODILON Administration Metoclopramide HCl 10 mg 12/11/19 17:00 12/22/19 05:06 Reglan IVP Not Given Q6H ODILON Mineral Oil/White Petrolatum 0 gm 12/04/19 14:04 12/04/19 14:49 Aquaphor 99 Gm TOP 1 applic PRN PRN Administration SKIN Miscellaneous Medication 0 gm 12/03/19 20:54 12/12/19 09:22 Preparation H Ointment TOP 1 appful TIDPRN PRN Administration Hemorrhoids Miscellaneous Medication 1 pkt 12/09/19 07:31 12/12/19 21:00 Phos-Nak PO 1 pkt TIDPRN PRN Administration FOR PHOS LEVEL 1.0 - 1.8 Pantoprazole Sodium 40 mg 12/06/19 09:00 12/21/19 07:46 Protonix IVP 40 mg DAILY ODILON Administration Potassium Chloride 40 meq 12/09/19 07:31 12/21/19 18:13 Klor-Con PER TUBE 40 meq ASDIR PRN Administration FOR SERUM K+ 2.5-3.5 Propofol 1,000 mg 12/09/19 12:22 12/19/19 17:30 Diprivan IV 01/08/20 12:22 1,000 mg INF PRN Administration TO ACHIEVE GOAL RASS Protocol Psyllium Hydrophilic Mucilloid 1 pk 12/20/19 09:00 12/21/19 08:42 Metamucil PER TUBE Not Given DAILY ODILON Saccharomyces Boulardii 250 mg 12/03/19 09:00 12/21/19 07:46 Florastor PO 250 mg DAILY ODILON Administration Senna/Docusate Sodium 1 tab 12/14/19 21:00 12/21/19 20:56 Senokot S PO Not Given BID ODILON Simethicone 80 mg 12/08/19 21:00 12/21/19 21:23 Mylicon Chewable PO 80 mg BID ODILON Administration Sodium Chloride 10 ml 12/02/19 09:00 12/21/19 21:23 Flush - Normal Saline IVF Not Given Q12HR ODILON Sodium Chloride 10 ml 12/02/19 01:25 12/15/19 08:33 Flush - Normal Saline IVF 10 ml PRN PRN Administration Saline Flush Sodium Chloride 10 ml 12/05/19 20:22 12/06/19 11:40 Normal Saline Pf FS 10 ml PRN PRN Administration RECONSTITUTION - Exam Eye: PERRL, anicteric sclera Heart: RRR, no murmur, no gallops, no rubs, normal peripheral pulses (+ rales at the bases, and decreased breath sounds) Gastrointestinal: soft, non-tender, non-distended, normal bowel sounds Extremities: 1+ LE edema Hosp A/P (1) Acute and chronic respiratory failure with hypoxia Code(s): J96.21 - ACUTE AND CHRONIC RESPIRATORY FAILURE WITH HYPOXIA Status: Acute (2) Malignant pleural effusion Code(s): J91.0 - MALIGNANT PLEURAL EFFUSION Status: Acute (3) Mucositis (ulcerative) due to antineoplastic therapy Code(s): K12.31 - ORAL MUCOSITIS (ULCERATIVE) DUE TO ANTINEOPLASTIC THERAPY Status: Acute (4) Neutropenic fever Code(s): D70.9 - NEUTROPENIA, UNSPECIFIED; R50.81 - FEVER PRESENTING WITH CONDITIONS CLASSIFIED ELSEWHERE Status: Acute (5) Hypertension Code(s): I10 - ESSENTIAL (PRIMARY) HYPERTENSION Status: Acute Qualifiers: Hypertension type: essential hypertension Qualified Code(s): I10 - Essential (primary) hypertension (6) Stage IV carcinoma of breast Code(s): C50.919 - MALIGNANT NEOPLASM OF UNSP SITE OF UNSPECIFIED FEMALE BREAST Status: Chronic - Plan * Acute on chronic respiratory failure- due to malignant pleural effusion ,now with bilateral PleurX catheters - * Her sedation has been reduced * She has had very good diureses * Discussed with PCCM- will wean the vent as tolerated * Neutropenic fever- continue Voriconazole * Anemia due to chemotherapy- stable * Thrombocytopenia-stable * HTN- blood pressure is stable * Hypokalemia - she is receiving replacement * Severe muscle weakness- continue PT/OT * Consider tappering steroids * Symptom Management- will add Lidoderm patch as needed for back pain
[2019-12-22] MEDS ORDERED: Metoclopramide HCl 10 MG/2 ML VIAL IVP PRN (10:32)
[2019-12-22] MEDS ORDERED: Loperamide HCl 2 MG CAP PO PRN (10:34)
[2019-12-22] MEDS: fentaNYL Citrate/PF 2,000 MCG in Sodium Chloride 0.9% 60 ML IV SCH (10:34)
[2019-12-22] MEDS: Saccharomyces boulardii 250 MG CAP PO SCH (10:35)
[2019-12-22] MEDS: Metamucil PACK PER TUBE SCH (10:35)
[2019-12-22] MEDS: Simethicone Chewable 80 MG TAB PO SCH ×2 (10:35→21:50)
[2019-12-22] MEDS: Pantoprazole 40 MG VIAL IVP SCH (10:35)
[2019-12-22] MEDS: Lidocaine 5% Patch TD SCH (10:35)
[2019-12-22] MEDS: Calcium Carbonate 600 MG TAB PER TUBE SCH ×3 (10:35→21:50)
--- NOTE | 2019-12-22 12:09 | PRG ---
DATE OF SERVICE: 12/22/2019 SERVICE: Nephrology. SUBJECTIVE: A 39-year-old female seen in followup for electrolyte derangements and volume overload. The patient was admitted due to febrile neutropenia and subsequently developed [id number] respiratory failure requiring intubation. The patient is diuresing well with diuretics. Negative about 11 L in the last 48 hours. The patient is more awake and is sitting in neuro chair currently. OBJECTIVE: VITAL SIGNS: Temperature 98.0, pulse 105, respiratory rate 22, SpO2 of 100% on 40% FiO2, blood pressure 111/95. Intake and output in the last 24 hours showed total intake of 2763 with total output of 8990. GENERAL: Chronically ill-looking female, in no obvious distress. Afebrile, acyanotic. HEENT: Normocephalic, atraumatic. CARDIOVASCULAR: Regular rhythm and rate, but tachycardic. RESPIRATORY: Ventilator transmitted breath sounds heard in all lung zones. GI: Full, soft, nondistended with normal bowel sounds. UROGENITAL: Fields catheter is in place draining some urine. EXTREMITIES: Mild bilateral pedal edema noted. STAIR BUILDER: Conscious and alert. Understands and obeys commands. DIAGNOSTIC DATA: BMP showed sodium 139, potassium 3.4, chloride 95, CO2 of 33, BUN 29, creatinine 0.62, calcium 8.5, phosphorus 2.5, magnesium 2.4. Chest x-ray reviewed by me showed improved aeration of both lungs. ASSESSMENT: 1. Hypokalemia: Due to diuretic therapy. 2. Hypernatremia: Due to free water flush. Improved with thiazide diuretic as well as free water flushes. 3. Hypomagnesemia: Repleted. 4. Hypophosphatemia: Repleted. 5. Volume overload: Markedly improved with aggressive diuresis. 6. Metastatic breast cancer, treatment as per Oncology. 7. [id number] respiratory failure requiring intubation: Treatment as per bridge manager. PLAN: We will reduce diuresis. We will decrease Lasix infusion from 2.5 mg/hour to 1 mg/hour. We will also give another dose of metolazone. We will plan on stopping Lasix infusion after current bag. We will replete serum potassium with potassium chloride. We will continue free water flushes for now and we will re-evaluate tomorrow with discontinuation of diuretics. Further treatment to follow depending on hospital course. Job ID: [id number]
--- NOTE | 2019-12-22 12:10 | RAD ---
CHEST 1 VIEW: INDICATION: A 39-year-old female with fluid overload. COMPARISON: Prior exam dated 12/19/2019. FINDINGS: The patient remains intubated with gastric catheter and left chest wall port placement. There are bi lateral thoracostomy tubes. Bilateral pleural effusions have diminished. Tiny residual pleural effu sions remain. There is improved aeration of both lobes. Mild residual ground-glass opacities within the perihilar region remain. No pneumothorax is evident. IMPRESSION: Improving bilateral airspace disease and bilateral pleural effusions. POS: [facility]
[2019-12-22] MEDS: Cholecalciferol 10 MCG/ML (Vitamin D3) 50 ML BOT PO SCH (17:59)
[2019-12-22] MEDS: methylPREDNISolone Sod Succ/PF 125 MG/2 ML VIAL IVP SCH (20:14)
[2019-12-22] MEDS: Senokot S 8.6-50 MG TAB PO SCH (20:15)
[2019-12-22] MEDS: Enoxaparin Sodium 30 MG/0.3 ML SYRINGE SC SCH (20:55)
[2019-12-23] MEDS: Lidocaine Patch Removal 1 EACH TOP SCH ×2 (00:12→00:19)
[2019-12-23] MEDS: fentaNYL Citrate/PF 2,000 MCG in Sodium Chloride 0.9% 60 ML IV SCH (02:45)
[2019-12-23] MEDS: Levalbuterol HCl 0.63 MG/3 ML NEB NEB SCH ×3 (07:05→23:06)
[2019-12-23 07:28] LABS: ALT (SGPT) 33 U/L (8-55); AST (SGOT) 78 U/L (5-34); Albumin 3.6 g/dL (3.5-5.0); Alkaline Phosphatase 719 U/L (40-110); Anion Gap 14 mmol/L (10-20); BUN (Urea Nitrogen) 23 mg/dL (7.0-18.7); Bilirubin, Total 4.7 mg/dL (0.2-1.2); Calc. Creatinine Clearance 123 mL/min (70-130); Calcium 7.7 mg/dL (7.8-10.44); Carbon Dioxide 28 mmol/L (22-29); Chloride 99 mmol/L (98-107); Estimated GFR-MDRD Greater than 90; Globulin 2.3 g/dL (2.4-3.5); Glucose 73 mg/dL (70-105); Potassium 3.3 mmol/L (3.5-5.1); Protein, Total 5.9 g/dL (6.0-8.3); Sodium 138 mmol/L (136-145)
--- NOTE | 2019-12-23 09:49 | RAD ---
KUB: INDICATION: Dobbhoff tube placement. IMPRESSION: Dobbhoff feeding tube is seen in the region of the distal gastric antrum or the 1st stage of the duod enum. Right thoracostomy tube is in place. There is partial visualization of the left chest wall po rt. Opacity overlies the right lung base. POS: [facility]
--- NOTE | 2019-12-23 09:51 | PDOC.HOSPP ---
- Subjective Encounter Date: 12/23/19 Encounter Time: 09:49 Subjective: Ms. Guallpa was seen today in follow-up of respiratory failure and metastatic breast cancer. She is awake, and alert. She is following commands. She indicates pain in her back. - Objective Vital Signs & Weight: Vital Signs (12 hours) Temp Pulse Resp BP 12/23/19 08:00 98.5 F 12/23/19 07:06 108 H 103/68 12/23/19 06:00 12/23/19 04:00 98.4 F 12/23/19 02:06 108 H 106/72 12/23/19 02:00 12/23/19 00:00 98.4 F 12/22/19 22:11 114 H 107/70 12/22/19 22:00 27 H Weight Admit Weight 143 lb 6.4 oz Weight 139 lb 1.787 oz Most Recent Monitor Data Heart Rate from ECG 96 NIBP 107/82 NIBP BP-Mean 90 Respiration from ECG 20 SpO2 100 I&O: 12/22/19 12/23/19 12/24/19 06:59 06:59 06:59 Intake Total 2763.4 813 Output Total 8990 2280 180 Balance -6226.6 -1467 -180 Result Diagrams: 12/22/19 08:44 12/23/19 06:31 Hospitalist ROS - Medication Medications: Active Medications Generic Name Dose Route Start Last Admin Trade Name Freq PRN Reason Stop Dose Admin Acetaminophen 650 mg 12/02/19 19:15 12/10/19 04:22 Tylenol Elixir PO 650 mg Q4H PRN Administration Headache/Fever or Pain (1-3) Bisacodyl 10 mg 12/02/19 18:33 12/16/19 08:53 Dulcolax [place] 10 mg DAILYPRN PRN Administration Constipation Calcium Carbonate 600 mg 12/19/19 15:00 12/22/19 21:50 Caltrate PER TUBE Not Given TID ODILON Cholecalciferol 3 ml 12/19/19 09:00 12/22/19 17:59 Vitamin D PO Not Given DAILY ODILON Enoxaparin Sodium 30 mg 12/18/19 21:00 12/22/19 20:55 Lovenox SC 30 mg 2100 ODILON Administration Potassium Phosphate 9 mmol/ 103 mls @ 25.75 mls/hr 12/09/19 07:31 12/09/19 22 :03 Sodium Chloride IVPB 103 mls ASDIR PRN Administration Phosphate 1.0-1.8 Norepinephrine Bitartrate 250 mls @ 0 mls/hr 12/09/19 12:14 12/09/19 20:22 Levophed IVPB 250 mls PRN PRN Administration To maintain MAP > 65 Protocol Titrate Midazolam HCl 100 mls @ 0 mls/hr 12/13/19 13:00 12/21/19 08:34 Versed IVPB 100 mls INF ODILON Administration Protocol Titrate Voriconazole 300 mg/ Sodium 100 mls @ 50 mls/hr 12/18/19 09:00 12/22/19 20:55 Chloride IVPB 100 mls Q12HR ODILON Administration Fentanyl Citrate 2,000 mcg/ 100 mls @ 0 mls/hr 12/19/19 14:00 12/23/19 02:45 Sodium Chloride IV 100 mls INF ODILON Administration Protocol Per Protocol Levalbuterol HCl 0.63 mg 12/04/19 15:11 12/23/19 07:05 Xopenex NEB 0.63 mg [id number] ODILON Administration Lidocaine 1 patch 12/22/19 11:00 12/22/19 10:35 Lidoderm 5% Patch TD 1 patch Q24HR ODILON Administration Lidocaine/Prilocaine 5 gm 12/02/19 13:06 12/14/19 20:54 Emla 2.5% TOP 1 applic PRN PRN Administration INJECTION SITE Lorazepam 2 mg 12/19/19 12:31 12/22/19 22:05 Ativan SLOW IVP 2 mg Q1H PRN Administration Breakthrough agitation Mineral Oil/White Petrolatum 0 gm 12/04/19 14:04 12/04/19 14:49 Aquaphor 99 Gm TOP 1 applic PRN PRN Administration SKIN Miscellaneous Medication 0 gm 12/03/19 20:54 12/12/19 09:22 Preparation H Ointment TOP 1 appful TIDPRN PRN Administration Hemorrhoids Miscellaneous Medication 1 pkt 12/09/19 07:31 12/12/19 21:00 Phos-Nak PO 1 pkt TIDPRN PRN Administration FOR PHOS LEVEL 1.0 - 1.8 Miscellaneous Medication 1 each 12/22/19 23:00 12/23/19 00:19 Lidocaine Patch Removal TOP Not Given 2300 ODILON Pantoprazole Sodium 40 mg 12/06/19 09:00 12/22/19 10:35 Protonix IVP 40 mg DAILY ODILON Administration Potassium Chloride 40 meq 12/09/19 07:31 12/21/19 18:13 Klor-Con PER TUBE 40 meq ASDIR PRN Administration FOR SERUM K+ 2.5-3.5 Propofol 1,000 mg 12/09/19 12:22 12/19/19 17:30 Diprivan IV 01/08/20 12:22 1,000 mg INF PRN Administration TO ACHIEVE GOAL RASS Protocol Psyllium Hydrophilic Mucilloid 1 pk 12/20/19 09:00 12/22/19 10:35 Metamucil PER TUBE 1 pk DAILY ODILON Administration Saccharomyces Boulardii 250 mg 12/03/19 09:00 12/22/19 10:35 Florastor PO 250 mg DAILY ODILON Administration Simethicone 80 mg 12/08/19 21:00 12/22/19 21:50 Mylicon Chewable PO Not Given BID ODILON Sodium Chloride 10 ml 12/02/19 09:00 12/22/19 20:54 Flush - Normal Saline IVF Not Given Q12HR ODILON Sodium Chloride 10 ml 12/02/19 01:25 12/15/19 08:33 Flush - Normal Saline IVF 10 ml PRN PRN Administration Saline Flush Sodium Chloride 10 ml 12/05/19 20:22 12/06/19 11:40 Normal Saline Pf FS 10 ml PRN PRN Administration RECONSTITUTION - Exam Eye: PERRL, anicteric sclera Heart: RRR, no murmur, no gallops, no rubs Respiratory: CTAB (+ coarse breath sounds, and occsional rhonchi) Gastrointestinal: soft, non-tender, non-distended, normal bowel sounds, no palpable masses Extremities: no cyanosis, no clubbing, 1+ LE edema Hosp A/P (1) Acute and chronic respiratory failure with hypoxia Code(s): J96.21 - ACUTE AND CHRONIC RESPIRATORY FAILURE WITH HYPOXIA Status: Acute (2) Malignant pleural effusion Code(s): J91.0 - MALIGNANT PLEURAL EFFUSION Status: Acute (3) Mucositis (ulcerative) due to antineoplastic therapy Code(s): K12.31 - ORAL MUCOSITIS (ULCERATIVE) DUE TO ANTINEOPLASTIC THERAPY Status: Acute (4) Neutropenic fever Code(s): D70.9 - NEUTROPENIA, UNSPECIFIED; R50.81 - FEVER PRESENTING WITH CONDITIONS CLASSIFIED ELSEWHERE Status: Acute (5) Hypertension Code(s): I10 - ESSENTIAL (PRIMARY) HYPERTENSION Status: Acute Qualifiers: Hypertension type: essential hypertension Qualified Code(s): I10 - Essential (primary) hypertension (6) Stage IV carcinoma of breast Code(s): C50.919 - MALIGNANT NEOPLASM OF UNSP SITE OF UNSPECIFIED FEMALE BREAST Status: Chronic - Plan * Acute on chronic respiratory failure- due to malignant pleural effusion , with bilateral PleurX catheters * Continue to reduce sedation to facilitate weaning * Continue to reduce ventilator support as per the recommendation from PCCM * Neutropenic fever- continue Voriconazole * Anemia due to chemotherapy- stable * Thrombocytopenia-stable * HTN- blood pressure is stable * Hypokalemia - continue to replace as needed * Severe muscle weakness- continue PT/OT * Consider tappering steroids * Symptom Management
[2019-12-23] MEDS: methylPREDNISolone Sod Succ 40 MG VIAL IVP SCH (10:06)
[2019-12-23] MEDS: Pantoprazole 40 MG VIAL IVP SCH (10:06)
--- NOTE | 2019-12-23 10:33 | PDOC.MOPN ---
Interval History: awake, follows commands weakly - Vital Signs Vital Signs: Vital Signs (12 hours) Temp Pulse Resp BP 12/23/19 08:00 98.5 F 20 12/23/19 07:06 108 H 103/68 12/23/19 06:00 20 12/23/19 04:00 98.4 F 20 12/23/19 02:06 108 H 106/72 12/23/19 02:00 20 12/23/19 00:00 98.4 F 20 Weight Admit Weight 143 lb 6.4 oz Weight 139 lb 1.787 oz Most Recent Monitor Data Heart Rate from ECG 96 NIBP 107/82 NIBP BP-Mean 90 Respiration from ECG 20 SpO2 100 - Physical Exam General: Alert, No acute distress Cardiovascular: Regular rate Extremities: No clubbing, No cyanosis, No edema, Normal pulses, No tenderness/ swelling Neurological: Other (intubated) - Labs Result Diagrams: 12/22/19 08:44 12/23/19 06:31 Lab results: Laboratory Results - last 24 hr 12/23/19 06:31: Sodium 138, Potassium 3.3 L, Chloride 99, Carbon Dioxide 28, Anion Gap 14, BUN 23 H, Creatinine 0.62, Estimated GFR (MDRD) Greater than 90, Glucose 73, Calcium 7.7 L, Total Bilirubin 4.7 H, AST 78 H, ALT 33, Alkaline Phosphatase 719 H, Serum Total Protein 5.9 L, Albumin 3.6, Globulin 2.3 L, Albumin/Globulin Ratio 1.6 Status: lab reviewed by me A/P - Problem (1) Elevated LFTs Current Visit: Yes Code(s): R79.89 - OTHER SPECIFIED ABNORMAL FINDINGS OF BLOOD CHEMISTRY Status: Acute (2) Mucositis (ulcerative) due to antineoplastic therapy Current Visit: Yes Code(s): K12.31 - ORAL MUCOSITIS (ULCERATIVE) DUE TO ANTINEOPLASTIC THERAPY Status: Acute (3) Breast cancer Current Visit: No Status: Acute (4) Malnutrition Current Visit: Yes Code(s): E46 - UNSPECIFIED PROTEIN-CALORIE MALNUTRITION Status: Acute (5) Acute respiratory failure Current Visit: No Code(s): J96.00 - ACUTE RESPIRATORY FAILURE, UNSP W HYPOXIA OR HYPERCAPNIA Status: Acute (6) Liver metastases Current Visit: No Code(s): C78.7 - SECONDARY MALIG NEOPLASM OF LIVER AND INTRAHEPATIC BILE DUCT Status: Acute - Plan Plan: 1. family meeting this am 2. Vent managed by Dr. Castelan 3. remains full code 4. no treatment options for her cancer 5. poor prognosis
[2019-12-23] MEDS: Calcium Carbonate 600 MG TAB PER TUBE SCH ×3 (11:01→20:58)
[2019-12-23] MEDS: Metamucil PACK PER TUBE SCH (11:02)
[2019-12-23] MEDS: Saccharomyces boulardii 250 MG CAP PO SCH (11:05)
[2019-12-23] MEDS: Simethicone Chewable 80 MG TAB PO SCH ×2 (11:07→20:58)
[2019-12-23] MEDS: Lidocaine 5% Patch TD SCH (11:23)
[2019-12-23] MEDS: Cholecalciferol 10 MCG/ML (Vitamin D3) 50 ML BOT PO SCH (11:53)
--- NOTE | 2019-12-23 15:21 | PRG ---
DATE OF SERVICE: 12/23/2019 SERVICE: Nephrology. SUBJECTIVE: A 39-year-old female with metastatic breast cancer, seen in followup for electrolyte derangement, on fluid overload. No new problem. The patient is more awake and attempting to verbalize. Making sign that she wants the tube out. OBJECTIVE: VITAL SIGNS: Temperature 98.5, pulse 99, respiratory rate 20, SpO2 of 100 on FiO2 40%. Blood pressure 99/62. Intake in the last 24 hours showed total intake of 803, it is rather inconclusive. Total output was 2480. GENERAL: Chronically ill-looking female, in no obvious distress. Afebrile, acyanotic. HEENT: Normocephalic, atraumatic. CARDIOVASCULAR: Regular rhythm and rate with normal heart sounds 1 and 2. RESPIRATORY: Ventilator transmitted breath sounds noted. GI: Full, soft, nontender with normal bowel sounds. EXTREMITIES: pedal edema noted. Muscular atrophy of the lower extremity noted. SALES OFFICE COORDINATOR: Conscious and awake. Oriented to person at least. Moving all limbs but weakly. Obeying commands. DIAGNOSTIC DATA: BMP showed sodium 138, potassium 3.3, chloride 99, CO2 of 28, BUN 23, creatinine 0.62, calcium 7.7, glucose 73. Bilirubin 4.7, AST 78, ALT 33, alkaline phosphatase 719, total protein 5.9, albumin 3.6. ASSESSMENT: 1. Hyponatremia, resolved. 2. Hypokalemia: Due to diuretic therapy. 3. Hypophosphatemia: Repleted. 4. Hypocalcemia: Due to vitamin D deficiency and poor oral intake. 5. Vitamin D deficiency on supplementation. 6. Fluid overload: Markedly improved with diuretics. Weight is back to baseline. PLAN: 1. We will replete serum potassium with potassium chloride. 2. We will decrease free water flushes to 100 mL per 4 hour. 3. No further diuretics at this time as patient is close to euvolemia if not euvolemic. 4. We will recheck her electrolytes tomorrow. 5. Further treatment to follow depending on hospital course. Job ID: [id number]
--- NOTE | 2019-12-23 16:11 | PRG ---
DATE OF SERVICE: 12/23/2019 SUBJECTIVE: The patient is awake today. She is on 120 mcg of fentanyl. She quickly responses to questions. I asked her if she would consent to a tracheostomy and she quickly nodded that she would. We tried multiple attempts to get a negative inspiratory force. It was comparable to the one we did recently, but she could never generate more than -16 cm water pressure. With mild decrease in ventilatory support, her heart rate has increased and her respiratory rate has increased. The pressure support volumes are small. OBJECTIVE: LUNGS: Unchanged. HEART: Unchanged. ABDOMEN: Unchanged. ASSESSMENT AND PLAN: I have explained to her brother that she is alert enough to generate a negative inspiratory force and that stopping her fentanyl is a bad idea given that she is chronically on fentanyl for bone metastases. I have cut her fentanyl down to 50 mcg, which she tends to get extremely agitated with that in the past. Hopefully, she will be more cooperative now since she has better lung compliance issues. I have explained to her brother that I do not feel comfortable extubating her. She may do well for an hour, 18 hours or 2 days, but given her extreme and profound weakness, I do not see any way that she will not ultimately develop secretion issues and perhaps even obstruct her airway and code in the middle of the night. A tracheostomy is the best option to facilitate survival as I have explained since all of this started. I discussed the above with Dr. Gonzales, who is also a friend of Melissa's brother. Job ID: [id number]
[2019-12-23] MEDS: Enoxaparin Sodium 30 MG/0.3 ML SYRINGE SC SCH (20:58)
[2019-12-24] MEDS: fentaNYL Citrate/PF 2,000 MCG in Sodium Chloride 0.9% 60 ML IV SCH (01:27)
[2019-12-24 06:33] LABS: Hemoglobin 8.1 g/dL (12.0-16.0); Mean Corpuscular HGB CONC 30.4 g/dL (32.0-36.0); Mean Corpuscular Hemoglobin 31.1 pg (27.0-31.0); Mean Platelet Volume 11.4 fL (7.4-10.4); Platelet Count 139 thou/uL (130-400); RBC Distribution Width 23.3 % (11.5-14.5); Red Blood Cell (RBC) Count 2.59 mill/uL (4.20-5.40)
[2019-12-24 06:52] LABS: ALT (SGPT) 29 U/L (8-55); AST (SGOT) 64 U/L (5-34); Albumin 3.5 g/dL (3.5-5.0); Alkaline Phosphatase 708 U/L (40-110); Anion Gap 12 mmol/L (10-20); BUN (Urea Nitrogen) 16 mg/dL (7.0-18.7); Bilirubin, Total 4.3 mg/dL (0.2-1.2); Calc. Creatinine Clearance 127 mL/min (70-130); Calcium 7.4 mg/dL (7.8-10.44); Carbon Dioxide 26 mmol/L (22-29); Chloride 104 mmol/L (98-107); Estimated GFR-MDRD Greater than 90; Globulin 2.5 g/dL (2.4-3.5); Glucose 118 mg/dL (70-105); Potassium 3.5 mmol/L (3.5-5.1); Sodium 138 mmol/L (136-145)
[2019-12-24] MEDS: Levalbuterol HCl 0.63 MG/3 ML NEB NEB SCH (06:54)
--- NOTE | 2019-12-24 08:09 | PRG ---
DATE OF SERVICE: 12/24/2019 Ms. Guallpa awakens. She has a best negative pressure of -30. Followup negative inspiratory force, measurements were -15 and -16, which were consistent with yesterday and pretty consistent with the day before. The best she had the day before was -25 cm water pressure. I suspect she will do fine for a short period of time once she is extubated, but I believe because of her weakness, that is severe, she will ultimately require re-intubation. I do not feel comfortable extubating her. I have explained that to her brother, who insists that she be extubated. Because of this, I have recommended that her care be transferred to another critical care physician. Dr. Gonzales has been gracious enough to take over. I will no longer be associated with her ventilator management. I have explained this to her brother and he agrees. Job ID: [id number]
--- NOTE | 2019-12-24 08:45 | PDOC.FMACP ---
Advance Care Planning - Problem (1) Elevated LFTs Status: Acute Code(s): R79.89 - OTHER SPECIFIED ABNORMAL FINDINGS OF BLOOD CHEMISTRY (2) Malnutrition Status: Acute Code(s): E46 - UNSPECIFIED PROTEIN-CALORIE MALNUTRITION (3) Mucositis (ulcerative) due to antineoplastic therapy Status: Acute Code(s): K12.31 - ORAL MUCOSITIS (ULCERATIVE) DUE TO ANTINEOPLASTIC THERAPY (4) Neutropenic fever Status: Acute Code(s): D70.9 - NEUTROPENIA, UNSPECIFIED; R50.81 - FEVER PRESENTING WITH CONDITIONS CLASSIFIED ELSEWHERE (5) Abdominal pain Status: Acute Code(s): R10.9 - UNSPECIFIED ABDOMINAL PAIN Qualifiers: Abdominal location: generalized Qualified Code(s): R10.84 - Generalized abdominal pain (6) Breast cancer Status: Acute (7) Epigastric pain Status: Acute Code(s): R10.13 - EPIGASTRIC PAIN (8) Liver metastases Status: Acute Code(s): C78.7 - SECONDARY MALIG NEOPLASM OF LIVER AND INTRAHEPATIC BILE DUCT (9) Tachycardia with heart rate 100-120 beats per minute Status: Acute Code(s): R00.0 - TACHYCARDIA, UNSPECIFIED (10) Bone metastases Status: Chronic Code(s): C79.51 - SECONDARY MALIGNANT NEOPLASM OF BONE (11) Neutropenia Status: Chronic Code(s): D70.9 - NEUTROPENIA, UNSPECIFIED (12) Acute and chronic respiratory failure with hypoxia Status: Acute Code(s): J96.21 - ACUTE AND CHRONIC RESPIRATORY FAILURE WITH HYPOXIA - Note Participants: family, other (other clinicians) Summary: A meeting was held with the patient's brother as well as Dr. Gonzales, Dr. Garcia, Dr. Vargas, and myself. We had a long discussion about goals of care and management going forward. Her brother was very clear that he was thankful for the care she had received and he was happy with the care. He feels she is getting better as a result of the care she is receiving. He does not want to switch pulmonologists or oncologists at this time. Again, he thanked me specifically for my care. We discussed trial of extubation and trach. He wants her to remain a full code. We explained the fpc prognosis is poor regardless of the outcome acutely. He understands and would like her to get to see her son again regardless. Further discussions will be held with the pulmonologists on trial of extubation vs trach. There are no oncologic recommendations at this time. She is not a candidiate for chemotherapy.
[2019-12-24] MEDS ORDERED: Calcium Chloride 13.6 MEQ in Sodium Chloride 0.9% 100 ML IVPB ONE (09:15)
[2019-12-24] MEDS: Pantoprazole 40 MG VIAL IVP SCH (09:32)
[2019-12-24] MEDS: methylPREDNISolone Sod Succ 40 MG VIAL IVP SCH (09:32)
[2019-12-24] MEDS: Calcium Carbonate 600 MG TAB PER TUBE SCH ×3 (09:33→20:59)
[2019-12-24] MEDS: Simethicone Chewable 80 MG TAB PO SCH ×2 (09:33→20:59)
[2019-12-24] MEDS: Saccharomyces boulardii 250 MG CAP PO SCH (09:33)
[2019-12-24] MEDS: Cholecalciferol 10 MCG/ML (Vitamin D3) 50 ML BOT PO SCH (09:34)
[2019-12-24] MEDS: Metamucil PACK PER TUBE SCH (09:58)
--- NOTE | 2019-12-24 10:04 | PDOC.HOSPP ---
- Subjective Encounter Date: 12/24/19 Encounter Time: 10:02 Subjective: Ms. Guallpa was seen today in follow-up of respiratory failure. She has been extubated. She is awake and smiling. - Objective Vital Signs & Weight: Vital Signs (12 hours) Temp Pulse Resp Pulse Ox 12/24/19 06:55 72 12/24/19 06:00 14 12/24/19 04:00 98.8 F 14 12/24/19 02:00 14 12/24/19 00:00 99.4 F 14 12/23/19 23:06 88 14 97 Weight Admit Weight 143 lb 6.4 oz Weight 132 lb 15.02 oz Most Recent Monitor Data Heart Rate from ECG 85 NIBP 96/58 NIBP BP-Mean 70 Respiration from ECG 14 SpO2 99 I&O: 12/23/19 12/24/19 12/25/19 06:59 06:59 06:59 Intake Total 813 767.3 Output Total 2280 1856 Balance -1467 -1088.7 Result Diagrams: 12/24/19 06:23 12/24/19 06:23 Hospitalist ROS - Medication Medications: Active Medications Generic Name Dose Route Start Last Admin Trade Name Freq PRN Reason Stop Dose Admin Acetaminophen 650 mg 12/02/19 19:15 12/10/19 04:22 Tylenol Elixir PO 650 mg Q4H PRN Administration Headache/Fever or Pain (1-3) Calcium Carbonate 600 mg 12/19/19 15:00 12/24/19 09:33 Caltrate PER TUBE 600 mg TID ODILON Administration Cholecalciferol 3 ml 12/19/19 09:00 12/24/19 09:34 Vitamin D PO 3 ml DAILY ODILON Administration Promethazine HCl 25 mg/ Sodium 51 mls @ 204 mls/hr 12/08/19 08:58 12/23/19 22 :29 Chloride IVPB 51 mls Q6H PRN Administration Nausea/Vomiting Voriconazole 300 mg/ Sodium 100 mls @ 50 mls/hr 12/18/19 09:00 12/23/19 20:59 Chloride IVPB 100 mls Q12HR ODILON Administration Fentanyl Citrate 2,000 mcg/ 100 mls @ 0 mls/hr 12/19/19 14:00 12/24/19 01:27 Sodium Chloride IV 100 mls INF ODILON Administration Protocol Per Protocol Calcium Chloride 13.6 meq/ 110 mls @ 100 mls/hr 12/24/19 09:15 12/24/19 09:59 Sodium Chloride IVPB 12/24/19 10:20 110 mls ONE ONE Administration Lidocaine 1 patch 12/22/19 11:00 12/23/19 11:23 Lidoderm 5% Patch TD 1 patch Q24HR ODILON Administration Lidocaine/Prilocaine 5 gm 12/02/19 13:06 12/14/19 20:54 Emla 2.5% TOP 1 applic PRN PRN Administration INJECTION SITE Methylprednisolone Sodium Succinate 40 mg 12/23/19 09:00 12/24/19 09:32 Solu-Medrol IVP 40 mg DAILY ODILON Administration Mineral Oil/White Petrolatum 0 gm 12/04/19 14:04 12/04/19 14:49 Aquaphor 99 Gm TOP 1 applic PRN PRN Administration SKIN Miscellaneous Medication 0 gm 12/03/19 20:54 12/12/19 09:22 Preparation H Ointment TOP 1 appful TIDPRN PRN Administration Hemorrhoids Miscellaneous Medication 1 each 12/22/19 23:00 12/23/19 00:19 Lidocaine Patch Removal TOP Not Given 2300 ODILON Ondansetron HCl 4 mg 12/02/19 11:58 12/23/19 22:03 Zofran Odt PO 4 mg Q6H PRN Administration Nausea/Vomiting Pantoprazole Sodium 40 mg 12/06/19 09:00 12/24/19 09:32 Protonix IVP 40 mg DAILY ODILON Administration Psyllium Hydrophilic Mucilloid 1 pk 12/20/19 09:00 12/24/19 09:58 Metamucil PER TUBE 1 pk DAILY ODILON Administration Saccharomyces Boulardii 250 mg 12/03/19 09:00 12/24/19 09:33 Florastor PO 250 mg DAILY ODILON Administration Simethicone 80 mg 12/08/19 21:00 12/24/19 09:33 Mylicon Chewable PO 80 mg BID ODILON Administration Sodium Chloride 10 ml 12/02/19 09:00 12/24/19 09:59 Flush - Normal Saline IVF 10 ml Q12HR ODILON Administration Sodium Chloride 10 ml 12/02/19 01:25 12/15/19 08:33 Flush - Normal Saline IVF 10 ml PRN PRN Administration Saline Flush Sodium Chloride 10 ml 12/05/19 20:22 12/06/19 11:40 Normal Saline Pf FS 10 ml PRN PRN Administration RECONSTITUTION - Exam General Appearance: NAD Heart: RRR, no murmur, no gallops, no rubs, normal peripheral pulses Respiratory: CTAB (with some coarse breath sounds scattered) Gastrointestinal: soft, non-tender, non-distended, normal bowel sounds, no palpable masses Extremities: no cyanosis Hosp A/P (1) Acute and chronic respiratory failure with hypoxia Code(s): J96.21 - ACUTE AND CHRONIC RESPIRATORY FAILURE WITH HYPOXIA Status: Acute (2) Malignant pleural effusion Code(s): J91.0 - MALIGNANT PLEURAL EFFUSION Status: Acute (3) Mucositis (ulcerative) due to antineoplastic therapy Code(s): K12.31 - ORAL MUCOSITIS (ULCERATIVE) DUE TO ANTINEOPLASTIC THERAPY Status: Acute (4) Neutropenic fever Code(s): D70.9 - NEUTROPENIA, UNSPECIFIED; R50.81 - FEVER PRESENTING WITH CONDITIONS CLASSIFIED ELSEWHERE Status: Acute (5) Hypertension Code(s): I10 - ESSENTIAL (PRIMARY) HYPERTENSION Status: Acute Qualifiers: Hypertension type: essential hypertension Qualified Code(s): I10 - Essential (primary) hypertension (6) Stage IV carcinoma of breast Code(s): C50.919 - MALIGNANT NEOPLASM OF UNSP SITE OF UNSPECIFIED FEMALE BREAST Status: Chronic - Plan * Acute on chronic respiratory failure- due to malignant pleural effusion , with bilateral PleurX catheters * She has been extubated * Neutropenic fever- continue Voriconazole * Anemia due to chemotherapy- stable * Thrombocytopenia-stable * HTN- blood pressure is stable * Hypokalemia - continue to replace as needed * Severe muscle weakness- continue PT/OT * Will decrease her dose of Solumedrol to 20mg IV * Her medical case was discussed with Dr. Gonzales He will be managing all aspects of her care while she is in the ICU. The hospitalist team will sign off for now.
[2019-12-24] MEDS: Lidocaine 5% Patch TD SCH (10:15)
--- NOTE | 2019-12-24 10:39 | RAD ---
CHEST 1 VIEW: HISTORY: Followup. COMPARISON: 12/22/2019. FINDINGS: Stable life support tubes bilaterally. Evidence for bilateral chest tubes. Alveolar and ground-glas s opacity changes in the lungs bilaterally, more confluent in the right mid and lower chest. No sign ificant new process. IMPRESSION: Bilateral ground-glass opacity changes and somewhat more confluent alveolar parenchymal changes in th e right mid and lower lung zone with evidence for small pleural effusions. Bilateral chest tubes. N o significant pneumothorax. POS: [facility]
--- NOTE | 2019-12-24 12:54 | PRG ---
DATE OF SERVICE: 12/24/2019 SUBJECTIVE: Ms. Guallpa is a 39-year-old woman with history of widely metastatic breast carcinoma with bony and liver metastasis. The patient has had multiple courses of chemotherapy. She was admitted on 12/02/2019, with acute neutropenic fever and dehydration. At that time, she was also having significant odynophagia. She has been on mechanical ventilatory support for acute respiratory failure secondary to suspected bilateral malignant pleural effusions, which had required intermittent drainage through bilateral pleural drains. The patient has responded quite well to critical care management. She was recently diuresed to achieve 13 L fluid loss over the last 4 days. She is tolerating ventilatory wean at the moment. This morning, she is sedated on fentanyl at 50 mcg/hour. With this, she awakens to voice, moves all extremities, and follows commands. OBJECTIVE: VITAL SIGNS: This morning include blood pressure 99/61, pulse is 83, respiratory rate is 18. Her maximum temperature in the last 24 hours is 99.4 degrees Fahrenheit. Oxygen saturation is 100% on FiO2 of 35%, SIMV of 15, PEEP of 5, pressure support of 10. HEENT: Pupils are equally round and reactive to light bilaterally. NECK: She has no jugular venous distention noted. HEART: Reveals regular rate and rhythm. No murmurs or gallops auscultated. LUNGS: Reveal scattered rhonchi. Breathing, regular and nonlabored. ABDOMEN: Soft, nontender, and nondistended. EXTREMITIES: Reveal 2+ radial and pedal pulses bilaterally. No ankle edema is present. NEUROLOGIC: Reveals no focal deficits present. LABORATORY DATA: Laboratory findings today include CBC with 7000 white blood cells, hemoglobin and hematocrit are 8.1 and 26.5 respectively. Platelet count is 139,000. Metabolic profile; sodium 138, potassium 3.5, chloride is 104, bicarb is 26, BUN is 16, creatinine 0.57, glucose is 118, magnesium is 2.4, total bilirubin is 4.3, AST and ALT are noted at 64 and 29 respectively. C-reactive protein is 4.54. Prealbumin is 22.0. All cultures including blood, urine, Clostridium difficile to date are negative. 2D echocardiogram, which was obtained on 12/08/2019, revealed normal ventricular chamber sizes with ejection fraction which was estimated at 60% to 65%. No significant valvular disease or wall motion abnormality was noted. IMPRESSION: 1. Acute respiratory failure, improving. 2. Chronic anemia, stable. 3. Chronic malnutrition, stable. 4. Acute hypocalcemia with a corrected calcium of 8.0. PLAN: 1. Correct abnormal electrolytes. 2. The patient was placed on sedation holiday and re-evaluated, at which time, she was able to lift her head off the bed on command and held her head up for 10 seconds. She was placed on CPAP of 5, pressure support of 10, and showed no evidence of increased work of breathing. 3. She did not have any pulmonary secretions, and when the cuff was deflated, there was adequate air leak. 4. She was extubated to nasal cannula oxygen without any difficulty. 5. We will continue physical and occupational therapy to increase activity as tolerated. 6. We will ask Speech and Language pathologist to evaluate the patient for swallow function. Above findings and plan were discussed with the patient and her brother, who indicated understanding of information given. The patient will remain in the intensive care unit for close observation. TIME SPENT: Total critical care time is 35 minutes. This included discussion with family. Job ID: [id number]
--- NOTE | 2019-12-24 13:10 | PRG ---
DATE OF SERVICE: 12/24/2019 SERVICE: Nephrology. SUBJECTIVE: A 39-year-old female, seen in followup for electrolyte derangements and volume overload. The patient was extubated earlier today. Comfortable and in no distress. OBJECTIVE: VITAL SIGNS: Temperature 97.8, respiratory rate 18, heart rate 83, SpO2 of 100%, blood pressure 118/89. GENERAL: Comfortable female, in no obvious distress. Afebrile. Acyanotic. HEENT: Normocephalic and atraumatic. NECK: Supple with no JVD. CARDIOVASCULAR: Regular rhythm and rate with normal heart sounds one and two. RESPIRATORY: Fair air entry bilaterally with some transmitted breath sounds. GI: Full, soft, nontender, nondistended with normal bowel sounds. UROGENITAL: Fields catheter is in place draining some urine. EXTREMITIES: Lower extremity muscular atrophy noted. No obvious edema appreciated. DIAGNOSTIC DATA: CBC showed WBC count 7.0, hemoglobin of 8.1, platelet of 139. Chemistry showed sodium 138, potassium 3.5, chloride 104, CO2 of 26, BUN 16, creatinine 0.57, glucose 118, calcium 7.4, total bilirubin 4.3, AST 64, ALT 29, alkaline phosphatase 708, total protein 6.0, albumin 3.5, globulin 2.5. Magnesium is 2.4. Chest x-ray earlier today showed bilateral ground-glass opacity changes alveolar parenchymal changes in the right mid and lower lung zone with evidence of small pleural effusions. ASSESSMENT: 1. due to free water deficit, resolved. 2. Volume overload: Markedly improved with aggressive diuresis. The patient is euvolemic currently. 3. Hypokalemia: Related to diuretic therapy. 4. Vitamin D deficiency. 5. Hypocalcemia. 6. Metastatic breast cancer on treatment. 7. Acute respiratory failure requiring intubation. PLAN: 1. We will replete serum potassium with potassium chloride. 2. No further diuretics are required as the patient is euvolemic at this point. 3. We will reduce free water flushes given resolution of hypernatremia. 4. We will start weekly vitamin D supplementation as the patient can now take by mouth. 5. Nephrology will sign off at this time given resolution of acute issues . Call for any clarification or questions. Job ID: [id number]
[2019-12-24] MEDS ORDERED: ALPRAZolam 0.5 MG TAB PO PRN (14:45)
[2019-12-24] MEDS ORDERED: HYDROmorphone 2 MG TAB PO PRN ×2 (14:45→14:48)
[2019-12-24] MEDS ORDERED: Gabapentin 300 MG CAP PO SCH (15:00)
[2019-12-24] MEDS ORDERED: Fentanyl 100 MCG/2 ML VIAL ONE (15:17)
[2019-12-24] MEDS ORDERED: HYDROmorphone 10 mg/100 ml CADD IV PRN (15:27)
[2019-12-24] MEDS ORDERED: Fentanyl 100 MCG/2 ML VIAL SLOW IVP SCH (15:30)
--- NOTE | 2019-12-24 19:11 | PRG ---
DATE OF SERVICE: 12/24/2019 SUBJECTIVE: Melissa has been extubated. She is complaining of pain all over. She appears, otherwise comfortable at rest. No chest pain. No abdominal pain. She still has an indwelling Fields catheter in place. OBJECTIVE: VITAL SIGNS: T-max 98.2, blood pressure 103/72, heart rate 94, respiratory rate 23, and O2 saturation 97. GENERAL: Awake, alert, and oriented, able to speak in full sentences. LUNGS: Symmetric air entry. Diminished breath sounds in the right lower base, but few crackles there. HEART: S1 and S2. Regular rate. ABDOMEN: Soft and not distended. Mild tenderness. EXTREMITIES: She is able to move all extremities. LABORATORY DATA: White cell count 7.0, hemoglobin 8.1, and platelets 139. Sodium 138 and creatinine 0.57. The Fungitell was negative. ASSESSMENT AND DISCUSSION: Metastatic breast cancer, multiple areas of involvement, neutropenic fever with lung involvement, and possible bacterial pneumonia. After the drainage of the effusions, it looks like she was able to be extubated successfully, but the duration of this improvement is probably going to be short and more likely to be confronted with deterioration at least in the medium term. If not, in a short term. Job ID: [id number]
[2019-12-24] MEDS: Enoxaparin Sodium 40 MG/0.4 ML SYRINGE SC SCH (20:59)
[2019-12-24] MEDS: Lidocaine Patch Removal 1 EACH TOP SCH (23:48)
[2019-12-25 08:14] LABS: Actual Bicarbonate (HCO3a) 23.8 mEq/L (22-28); Base Excess (BEa) 1.6 mEq/L (-2.0 to +3.0); CO2 Tension 28.7 mmHg (35.0-45.0); Calcium, Ionized 1.12 mmol/L (1.12-1.30); Carboxyhemoglobin (COHb) 1.1 gm% (0.0-3.0); Hemoglobin (Hb) 9.5 g/dL (12.0-16.0); Potassium - ABG Lab 3.41 mmol/L (3.70-5.30); pH, Arterial 7.54 (7.35-7.45)
[2019-12-25 08:18] LABS: O2 Tension (PaO2), arterial 42.8 mmHg (80.0-100.0)
[2019-12-25 08:19] LABS: Puncture Site LBRACH
[2019-12-25] MEDS ORDERED: methylPREDNISolone Sod Succ 40 MG VIAL IVP SCH ×2 (09:00→09:58)
[2019-12-25] MEDS ORDERED: Albumin 25% 25 GM/100 ML BOT IVPB SCH (09:01)
[2019-12-25] MEDS ORDERED: Lorazepam 2 MG/ML VIAL SLOW IVP PRN (09:15)
--- NOTE | 2019-12-25 09:17 | RAD ---
PORTABLE CHEST ONE VIEW: 12/25/2019 8:09 a.m. HISTORY: Hypoxia. COMPARISON: Study from the previous day. FINDINGS: There has been interval removal of the endotracheal and feeding tubes. Bilateral chest tubes and left -sided Port-A-Cath remain in place. Bilateral infiltrates are again noted with mild interval worsenin g on the right. No pneumothoraces or large effusions are identified. POS: OFF
[2019-12-25] MEDS ORDERED: Lorazepam 2 MG/ML VIAL ONE (09:18)
[2019-12-25] MEDS: Metamucil PACK PER TUBE SCH ×2 (10:43→17:04)
[2019-12-25] MEDS: Lidocaine 5% Patch TD SCH ×2 (10:43→12:59)
[2019-12-25] MEDS: Ergocalciferol 1.25 MG(50,000 UNITS) CAP PO SCH (10:44)
[2019-12-25] MEDS: Calcium Carbonate 600 MG TAB PER TUBE SCH ×3 (10:44→20:12)
[2019-12-25] MEDS: Simethicone Chewable 80 MG TAB PO SCH ×2 (10:44→20:12)
[2019-12-25] MEDS: Saccharomyces boulardii 250 MG CAP PO SCH (10:44)
[2019-12-25] MEDS: methylPREDNISolone Sod Succ 40 MG VIAL IVP SCH ×2 (10:49→20:13)
--- NOTE | 2019-12-25 11:04 | RAD ---
ABDOMEN ONE VIEW: HISTORY: Feeding tube. FINDINGS: The distal tip of the feeding tube is in the projection of the distal stomach. The bowel gas pattern is unremarkable. POS: OFF
[2019-12-25] MEDS: Cholecalciferol 10 MCG/ML (Vitamin D3) 50 ML BOT PO SCH (11:47)
[2019-12-25] MEDS: Sodium Chloride 0.9% 1,000 ML IV SCH (14:28)
[2019-12-25] MEDS: ALPRAZolam 0.5 MG TAB PO PRN ×2 (14:28→22:37)
[2019-12-25] MEDS: Cyclobenzaprine 10 MG TAB PO PRN (15:23)
[2019-12-25] MEDS: Enoxaparin Sodium 40 MG/0.4 ML SYRINGE SC SCH (20:12)
[2019-12-25] MEDS: Bisacodyl 10 MG SUPP PR PRN (20:33)
--- NOTE | 2019-12-25 20:57 | PRG ---
DATE OF SERVICE: SUBJECTIVE: Patient remains on the Critical Care Unit. She was seen this morning with Dr. Gonzales and revisited a few times throughout the day. This morning, it was noted that she was having some respiratory difficulties that greatly improved after a trial of BiPAP for approximately 4 hours. She was able to be weaned off it to the extent that she was able to cooperate and participate with Speech Therapy and was able to have her diet adjusted to thin liquids as opposed to yesterday she was on nectar thick. She reports that her pain is controlled and she is feeling much better. She was restarted on her Xanax, which she greatly appreciated. She had a Dobhoff that was also placed today to assist in her nutrition. She reports that her pain is controlled with a ELECTRICAL TECHNICIAN. During my final visit for the evening, she was resting comfortably. She woke briefly as I spoke with her brother, but I allowed her to rest as she appeared comfortable. OBJECTIVE: VITAL SIGNS: At the time of this dictation, temperature is 98.5, heart rate 95, blood pressure 134/75, respirations 24, and oxygen saturation 100%. GENERAL: She is resting comfortably in bed. She opens her eyes for verbal stimuli and nodded that she had no complaints at this time. LUNGS: Have scattered rhonchi bilaterally. HEART: Slightly tachycardic with a regular rhythm. ABDOMEN: Soft, nontender, with active bowel sounds. EXTREMITIES: Neurovascularly intact x4. LABORATORY DATA: There are no labs to review this morning. IMAGING: Radiographs. AP chest x-ray is essentially unchanged with the exception of a mild interval worsening of the infiltrate on the right. ASSESSMENT: 1. Acute respiratory failure, improving. 2. Chronic anemia, stable. 3. Chronic malnutrition, stable, tube feeds will be resumed. 4. History of widely metastatic breast carcinoma with bony and liver metastases. PLAN: Plan will be to continue supportive care. She will have BiPAP p.r.n. and at night. We will check her labs in the morning and advance her tube feeds as tolerated. Job ID: [id number] MTDD
[2019-12-25] MEDS: Lorazepam 2 MG/ML VIAL SLOW IVP PRN (23:00)
[2019-12-25] MEDS: Lidocaine Patch Removal 1 EACH TOP SCH (23:50)
[2019-12-26] MEDS: Cyclobenzaprine 10 MG TAB PO PRN (04:26)
[2019-12-26] MEDS: ALPRAZolam 0.5 MG TAB PO PRN ×3 (04:26→23:36)
[2019-12-26] MEDS ORDERED: ALPRAZolam 0.5 MG TAB PO SCH (07:00)
[2019-12-26 07:11] LABS: Anion Gap 12 mmol/L (10-20); BUN (Urea Nitrogen) 12 mg/dL (7.0-18.7); Calc. Creatinine Clearance 136 mL/min (70-130); Calcium 7.9 mg/dL (7.8-10.44); Carbon Dioxide 24 mmol/L (22-29); Chloride 107 mmol/L (98-107); Estimated GFR-MDRD Greater than 90; Glucose 176 mg/dL (70-105); Magnesium 2.2 mg/dL (1.6-2.6); Potassium 3.7 mmol/L (3.5-5.1); Sodium 139 mmol/L (136-145)
[2019-12-26 07:16] LABS: Phosphorus 1.9 mg/dL (2.3-4.7)
[2019-12-26 07:59] LABS: Anisocytosis SLIGHT = 6-15 cells (100X) (0-5/hpf); Band 4 % (5-11); Large Platelets SLIGHT; Lymphocytes 5 % (21-51); MDiff Complete? YES; Mean Corpuscular HGB CONC 31.8 g/dL (32.0-36.0); Mean Corpuscular Hemoglobin 32.6 pg (27.0-31.0); Mean Platelet Volume 11.5 fL (7.4-10.4); Monocytes 6 % (0-10); Neutrophil 83 % (42-75); Nucleated RBC 2 % (0); Ovalocytes SLIGHT = 2-5 cells (100X) (0-1/hpf); Platelet Count 118 thou/uL (130-400); Platelet Morphology Comment Appears Decreased; Polychromasia SLIGHT = 2-3 cells (100X) (0-2/hpf); Reactive Lymphocytes 2 % (0-10); Red Blood Cell (RBC) Count 2.44 mill/uL (4.20-5.40)
[2019-12-26] MEDS: Metamucil PACK PER TUBE SCH (08:53)
[2019-12-26] MEDS: Saccharomyces boulardii 250 MG CAP PO SCH (08:57)
[2019-12-26] MEDS: Calcium Carbonate 600 MG TAB PER TUBE SCH ×3 (08:57→20:09)
[2019-12-26] MEDS: methylPREDNISolone Sod Succ 40 MG VIAL IVP SCH ×2 (08:58→20:10)
[2019-12-26] MEDS: Simethicone Chewable 80 MG TAB PO SCH ×2 (08:58→20:10)
[2019-12-26] MEDS: Cholecalciferol 10 MCG/ML (Vitamin D3) 50 ML BOT PO SCH (09:02)
[2019-12-26] MEDS: Sodium Chloride 0.9% 1,000 ML IV SCH (09:23)
[2019-12-26] MEDS ORDERED: Morphine 4 MG/ML VIAL ONE (09:58)
[2019-12-26] MEDS ORDERED: Lorazepam 2 MG/ML VIAL SLOW IVP SCH (10:00)
[2019-12-26] MEDS ORDERED: Morphine 4 MG/ML VIAL SLOW IVP SCH (10:00)
[2019-12-26] MEDS ORDERED: Potassium Phosphate 30 MMOL in Sodium Chloride 0.9% 250 ML 250 ML IVPB SCH (10:00)
[2019-12-26] MEDS ORDERED: Pantoprazole 40 MG VIAL IVP SCH (10:15)
--- NOTE | 2019-12-26 11:12 | PRG ---
DATE OF SERVICE: 12/26/2019 SUBJECTIVE: Ms. Guallpa is a 39-year-old woman with history of widely metastatic breast carcinoma to bone and liver metastases. She is 2 days now post extubation. She is on BiPAP this morning, awakens to voice, moves all extremities, and follows commands. She apparently was able to tolerate oral intake yesterday. Tube feeds are near goal. The patient is having bowel movements. She is on no vasopressor or inotropic support. Urinary output is adequate for the patient's age and weight. OBJECTIVE: VITAL SIGNS: This morning include blood pressure 114/68, pulse 107, respiratory rate is , maximum temperature in last 24 hours is 98.7 degrees Fahrenheit, oxygen saturation currently is 100% on FiO2 of 50% on . HEENT: Pupils are equal, round, reactive to light and accommodation. She has bilateral scleral icterus present. HEART: Reveals regular rate with sinus tachycardia. No murmurs or gallops auscultated. LUNGS: There are bibasilar rhonchi. She is tachypneic, breathing otherwise unlabored. ABDOMEN: Soft, moderately tender to palpation with no peritoneal signs on examination. NEUROLOGIC: Reveals no focal deficits present. LABORATORY FINDINGS: Today includes CBC with 7000 white blood cells, hemoglobin and hematocrit stable at 8.0 and 25.0 respectively. Platelet count is noted at 118,000. Metabolic profile; sodium 139, potassium 3.7, chloride is 107, bicarb is 24, BUN is 12, creatinine 0.56, glucose 176, magnesium 2.2, and phosphorus 1.9. IMPRESSION: 1. Resolving acute respiratory failure. 2. Acute hypokalemia. 3. Acute hypophosphatemia. 4. Chronic debility. 5. Widely metastatic breast carcinoma with liver and bone metastases. PLAN: 1. Correct abnormal electrolytes. 2. We will optimize pain control and anxiolytics as I suspect that this patient's tachypnea may very well be attributable to anxiety. 3. We will start Precedex at 0.1 mcg/kg/hour and continue with physical and occupational therapy in the interim. Job ID: [id number]
[2019-12-26] MEDS: Lidocaine 5% Patch TD SCH (12:23)
[2019-12-26] MEDS: Morphine 4 MG/ML VIAL SLOW IVP PRN ×2 (14:24→20:19)
[2019-12-26] MEDS: Enoxaparin Sodium 40 MG/0.4 ML SYRINGE SC SCH (21:00)
[2019-12-26] MEDS: Lidocaine Patch Removal 1 EACH TOP SCH (23:00)
[2019-12-27] MEDS: Lorazepam 2 MG/ML VIAL SLOW IVP PRN ×2 (00:56→22:38)
[2019-12-27] MEDS: Cyclobenzaprine 10 MG TAB PO PRN ×2 (00:56→08:38)
[2019-12-27] MEDS: Simethicone Chewable 80 MG TAB PO PRN (01:31)
[2019-12-27] MEDS: Morphine 4 MG/ML VIAL SLOW IVP PRN ×6 (01:46→22:52)
[2019-12-27 05:12] LABS: Anion Gap 11 mmol/L (10-20); BUN (Urea Nitrogen) 12 mg/dL (7.0-18.7); Calc. Creatinine Clearance 125 mL/min (70-130); Calcium 8.5 mg/dL (7.8-10.44); Carbon Dioxide 24 mmol/L (22-29); Chloride 108 mmol/L (98-107); Estimated GFR-MDRD Greater than 90; Glucose 205 mg/dL (70-105); Magnesium 2.1 mg/dL (1.6-2.6); Phosphorus 2.1 mg/dL (2.3-4.7); Potassium 4.4 mmol/L (3.5-5.1); Sodium 139 mmol/L (136-145)
[2019-12-27] MEDS: ALPRAZolam 0.5 MG TAB PO PRN (05:25)
[2019-12-27] MEDS: Sodium Chloride 0.9% 1,000 ML IV SCH (07:26)
[2019-12-27] MEDS ORDERED: Sodium Phosphate 30 MMOL in Sodium Chloride 0.9% 250 ML 250 ML IVPB SCH (08:15)
[2019-12-27] MEDS: Simethicone Chewable 80 MG TAB PO SCH ×2 (08:38→20:47)
[2019-12-27] MEDS: Saccharomyces boulardii 250 MG CAP PO SCH (08:38)
[2019-12-27] MEDS: Pantoprazole 40 MG VIAL IVP SCH (08:39)
[2019-12-27] MEDS: Calcium Carbonate 600 MG TAB PER TUBE SCH ×3 (08:39→20:47)
[2019-12-27] MEDS: Metamucil PACK PER TUBE SCH (08:40)
[2019-12-27] MEDS: methylPREDNISolone Sod Succ 40 MG VIAL IVP SCH ×2 (08:40→20:47)
[2019-12-27] MEDS: Cholecalciferol 10 MCG/ML (Vitamin D3) 50 ML BOT PO SCH (08:41)
[2019-12-27] MEDS ORDERED: Lorazepam 2 MG/ML VIAL SLOW IVP PRN (09:12)
[2019-12-27] MEDS ORDERED: Morphine 4 MG/ML VIAL SLOW IVP SCH (09:15)
[2019-12-27] MEDS ORDERED: Lorazepam 2 MG/ML VIAL SLOW IVP SCH (09:15)
--- NOTE | 2019-12-27 11:26 | PRG ---
DATE OF SERVICE: 12/27/2019 SUBJECTIVE: Ms. Guallpa is a 39-year-old woman with history of metastatic breast carcinoma with liver and bony metastasis. The patient is awake and alert on BiPAP. She is tachypneic, although denies any significant dyspnea. She complains of left-sided chest wall pain. She is tolerating tube feeds at goal and having bowel movements. Urinary output is adequate for the patient's age and weight. OBJECTIVE: VITAL SIGNS: This morning include blood pressure 108/67, pulse is 112, respiratory rate is 44, maximum temperature in last 24 hours is 98.5 degrees Fahrenheit, oxygen saturation 100% on FiO2 of 50% on BiPAP, IPAP of 12 and EPAP of 5. HEENT: She has no jugular venous distention noted. HEART: Reveals regular rate with sinus tachycardia. No murmurs or gallops auscultated. LUNGS: Clear to auscultation bilaterally. Breathing is tachypneic, though unlabored. ABDOMEN: Soft and nondistended. She clearly has no peritoneal signs on examination. NEUROLOGIC: Reveals no focal deficits present. LABORATORY FINDINGS: Today include metabolic profile; sodium 139, potassium 4.4 , chloride is 108, bicarb is 24, BUN is 12, creatinine is 0.61, glucose 205, magnesium 2.1, and phosphorus is 2.1. IMPRESSION: 1. Acute respiratory insufficiency, stable. 2. Acute hypophosphatemia. 3. Metastatic breast carcinoma with bony metastasis. PLAN: 1. Correct abnormal electrolytes. 2. Optimize pain control and anxiolytics while increasing physical and occupational therapy. Above findings and plan has been discussed with the patient and her brother at bedside. The patient's 8-year-old son will be visiting this morning. Job ID: [id number] [facility]
[2019-12-27] MEDS: Lidocaine 5% Patch TD SCH (12:26)
[2019-12-27] MEDS: ALPRAZolam 1 MG TAB PO PRN ×2 (12:28→20:47)
[2019-12-27] MEDS ORDERED: DENOSUMAB 120 MG SC SCH (15:45)
[2019-12-27] MEDS: Enoxaparin Sodium 40 MG/0.4 ML SYRINGE SC SCH (20:47)
[2019-12-27] MEDS: Lidocaine Patch Removal 1 EACH TOP SCH (23:08)
[2019-12-28] MEDS: Morphine 4 MG/ML VIAL SLOW IVP PRN ×5 (00:49→23:32)
[2019-12-28] MEDS: Sodium Chloride 0.9% 1,000 ML IV SCH ×2 (02:29→23:39)
[2019-12-28 06:06] LABS: Band 13 % (5-11); Hemoglobin 7.9 g/dL (12.0-16.0); Lymphocytes 5 % (21-51); MDiff Complete? YES; Mean Corpuscular Hemoglobin 31.7 pg (27.0-31.0); Mean Platelet Volume 11.5 fL (7.4-10.4); Metamyelocyte 2 % (0-0); Monocytes 3 % (0-10); Neutrophil 77 % (42-75); Nucleated RBC 1 % (0); Platelet Count 104 thou/uL (130-400); Platelet Morphology Comment Appears Decreased; RBC Distribution Width 22.8 % (11.5-14.5); Red Blood Cell (RBC) Count 2.49 mill/uL (4.20-5.40); White Blood Cell (WBC) Count 7.4 thou/uL (4.8-10.8)
[2019-12-28 06:16] LABS: Anion Gap 11 mmol/L (10-20); BUN (Urea Nitrogen) 13 mg/dL (7.0-18.7); Calc. Creatinine Clearance 130 mL/min (70-130); Calcium 8.3 mg/dL (7.8-10.44); Carbon Dioxide 26 mmol/L (22-29); Chloride 108 mmol/L (98-107); Estimated GFR-MDRD Greater than 90; Glucose 226 mg/dL (70-105); Potassium 4.4 mmol/L (3.5-5.1); Sodium 141 mmol/L (136-145)
[2019-12-28] MEDS ORDERED: HumaLOG 300 UNITS/3 ML VIAL SC PRN (08:04)
[2019-12-28] MEDS ORDERED: Dextrose 50% Abboject 50 ML SYRINGE IVP PRN (08:04)
[2019-12-28] MEDS ORDERED: Dextrose 5% in Water 1,000 ML IV PRN (08:04)
[2019-12-28] MEDS ORDERED: Polyethylene Glycol 3350 17 GM Packet PER TUBE SCH (09:00)
[2019-12-28] MEDS: Simethicone Chewable 80 MG TAB PO SCH ×2 (09:16→21:02)
[2019-12-28] MEDS: Calcium Carbonate 600 MG TAB PER TUBE SCH ×3 (09:16→21:03)
[2019-12-28] MEDS: Saccharomyces boulardii 250 MG CAP PO SCH (09:16)
[2019-12-28] MEDS: Pantoprazole 40 MG VIAL IVP SCH (09:16)
[2019-12-28] MEDS: methylPREDNISolone Sod Succ 40 MG VIAL IVP SCH ×2 (09:17→21:03)
[2019-12-28] MEDS: Metamucil PACK PER TUBE SCH (09:17)
[2019-12-28] MEDS: Cholecalciferol 10 MCG/ML (Vitamin D3) 50 ML BOT PO SCH (09:53)
[2019-12-28] MEDS ORDERED: cloNIDine 0.1 MG TAB PO SCH (10:00)
--- NOTE | 2019-12-28 10:06 | PRG ---
DATE OF SERVICE: 12/28/2019 SUBJECTIVE: The patient is seen on rounds today with the trauma team. She did well overnight with intermittent BiPAP. She is on tube feeds at goal, having bowel movements. Her urinary output has been adequate for this patient's age and weight. She complains of some bone pain, especially with the hips. She remains on Precedex at 0.7 mcg/kg/hour. OBJECTIVE: VITAL SIGNS: This morning include blood pressure 95/64, pulse 114, respiratory rate 31, maximum temperature in the last 24 hours 98.7 degrees Fahrenheit, and oxygen saturation 91% on 4 L via nasal cannula oxygen. HEART: Reveals regular rate with sinus tachycardia. No murmurs or gallops auscultated. LUNGS: Scattered rhonchi. Breathing, regular and nonlabored. ABDOMEN: Soft and nondistended. She has mild tenderness to palpation with no peritoneal signs on examination. NEUROLOGIC: No focal deficits present. LABORATORY FINDINGS: Today includes a CBC with 7400 white blood cells, hemoglobin and hematocrit are stable at 7.9 and 25.5 respectively, and platelet count is 104,000. Metabolic profile: Sodium 141, potassium 4.4, chloride is 108, bicarb is 26, BUN is 13, creatinine is 0.59, and glucose is 226. Magnesium is 2.0. Phosphorus is 3.0. IMPRESSIONS: 1. Resolving acute respiratory failure. 2. Acute hyperglycemia, likely secondary to the corticosteroids. 3. Chronic debility. 4. Metastatic breast carcinoma with liver and bony metastasis. PLAN: 1. We will initiate sliding scale insulin and decrease the Solu-Medrol to 20 mg IV b.i.d. 2. We will start the patient on clonidine p.o. and begin to wean the Precedex to off. 3. Increase activity per Physical and Occupational Therapy. Above findings and plan has been discussed with the patient who indicates understanding of information given. I have answered her questions. Job ID: [id number]
[2019-12-28] MEDS: Lidocaine 5% Patch TD SCH (11:50)
[2019-12-28] MEDS: cloNIDine 0.1 MG TAB PO SCH ×2 (13:33→17:19)
[2019-12-28] MEDS: Bisacodyl 10 MG SUPP PR PRN (13:33)
[2019-12-28] MEDS: Simethicone Chewable 80 MG TAB PO PRN (14:47)
[2019-12-28] MEDS: Fleet Enema 133 ML BOT FS PRN (15:21)
[2019-12-28] MEDS: Lorazepam 2 MG/ML VIAL SLOW IVP PRN (21:02)
[2019-12-28] MEDS: Enoxaparin Sodium 40 MG/0.4 ML SYRINGE SC SCH (21:03)
--- NOTE | 2019-12-28 23:42 | PRG ---
DATE OF SERVICE: 12/28/2019 SUBJECTIVE: The patient was seen this evening during rounds. Nursing was at bedside. The patient was on BiPAP, breathing about 40 times a minute, FiO2 of 50%, and O2 saturation was about 98%. She is hemodynamically stable. Nursing reported she was comfortable. Precedex is at 0.7. Nursing reported no acute issues. She did have a bowel movement today. OBJECTIVE: VITAL SIGNS: Temperature 98.4, pulse 94, respirations 38, oxygen saturation 98% on FiO2 of 50% on BiPAP, and blood pressure 121/77. GENERAL: Young female lying in bed with no signs of acute distress. PULMONARY: Equal chest rise and fall. No signs of acute respiratory distress; however, the patient is tachypneic. This is pretty consistent with her previous vital signs. ASSESSMENT: 1. Resolving acute respiratory failure, stable. 2. Acute hyperglycemia, likely secondary to corticosteroids. 3. Chronic debility. 4. Metastatic breast carcinoma with liver and bone metastasis. PLAN: Continue BiPAP overnight and closely monitor vital signs. Dr. Gonzales has changed the clonidine 0.2 mg to q.4 hours with hold parameters that has been updated. Continue tube feed and IV fluids as previously indicated. This patient was discussed with Dr. Gonzales this evening before this dictation. Job ID: [id number]
[2019-12-28] MEDS: ALPRAZolam 1 MG TAB PO PRN (23:46)
[2019-12-29] MEDS: cloNIDine 0.2 MG TAB PO SCH ×6 (02:02→22:39)
[2019-12-29] MEDS: Cyclobenzaprine 10 MG TAB PO PRN ×2 (02:03→19:39)
[2019-12-29] MEDS: Morphine 4 MG/ML VIAL SLOW IVP PRN ×9 (02:03→22:43)
[2019-12-29] MEDS: Lorazepam 2 MG/ML VIAL SLOW IVP PRN ×4 (07:54→15:19)
[2019-12-29] MEDS: methylPREDNISolone Sod Succ 40 MG VIAL IVP SCH ×2 (08:15→22:05)
[2019-12-29] MEDS: Pantoprazole 40 MG VIAL IVP SCH (08:15)
[2019-12-29] MEDS: Simethicone Chewable 80 MG TAB PO SCH ×2 (08:16→22:03)
[2019-12-29] MEDS: Saccharomyces boulardii 250 MG CAP PO SCH (08:16)
[2019-12-29] MEDS: Calcium Carbonate 600 MG TAB PER TUBE SCH ×3 (08:16→22:03)
[2019-12-29] MEDS: Cholecalciferol 10 MCG/ML (Vitamin D3) 50 ML BOT PO SCH (08:18)
[2019-12-29] MEDS ORDERED: Morphine 4 MG/ML VIAL SLOW IVP SCH (10:45)
[2019-12-29] MEDS ORDERED: Lorazepam 2 MG/ML VIAL SLOW IVP SCH (10:45)
[2019-12-29] MEDS ORDERED: Morphine 4 MG/ML VIAL ONE (11:40)
[2019-12-29] MEDS ORDERED: Furosemide 40 MG/4 ML VIAL ONE (11:41)
[2019-12-29] MEDS ORDERED: Furosemide 40 MG/4 ML VIAL SLOW IVP SCH (12:00)
[2019-12-29] MEDS ORDERED: Furosemide 20 MG/2 ML VIAL SLOW IVP SCH (12:00)
[2019-12-29] MEDS ORDERED: Metolazone 2.5 MG TAB PO SCH (13:15)
[2019-12-29] MEDS: Sodium Chloride 0.9% 1,000 ML IV SCH (18:11)
--- NOTE | 2019-12-29 19:02 | PRG ---
DATE OF SERVICE: 12/29/2019 SUBJECTIVE: Ms. Guallpa is a 39-year-old woman with history of widely metastatic breast carcinoma with liver and bony metastasis. The patient has had frequent demand of BiPAP due to sustained tachypnea associated with some dyspnea. Urinary output otherwise has been adequate for the patient's age and weight. Overall fluid intake demonstrated positive balance of almost 3 L in the last 48 hours. Pain control is adequate. She remains on Precedex at 0.7 mcg/kg per hour in addition to clonidine 0.2 mg p.o. q.4 hours. OBJECTIVE: VITAL SIGNS: Today, include blood pressure 160/100, pulse 154, respiratory rate is between 50 and 55 breaths per minute, maximum temperature in last 24 hours 98.6 degrees Fahrenheit, and oxygen saturation 100% on FiO2 of 50% on BiPAP. HEENT: Pupils are equal, round, and reactive to light bilaterally. NECK: She has slight jugular venous distention noted. HEART: Reveals regular rate with sinus tachycardia. No murmurs or gallops auscultated. LUNGS: Reveal bibasilar rhonchi. Breathing, regular and nonlabored. ABDOMEN: Soft, moderately distended, and tender to palpation with no gross rebound tenderness present. NEUROLOGIC: Reveals no focal deficits present. IMPRESSIONS: 1. Clinical acute congestive heart failure exacerbation, likely secondary to fluid overload. 2. Acute respiratory failure secondary to clinical acute congestive heart failure exacerbation. PLAN: 1. Aggressive diuresis and continue with intermittent noninvasive mechanical ventilator support. 2. We will suspend physical and occupational therapy today. 3. Discuss with the patient and her brother at bedside today. 4. Recommended consideration for hospice, which could be in-patient or on outpatient basis. 5. They have therefore requested for hospice consult and same will be ordered. 6. We will optimize pain control and monitor the patient for any electrolyte imbalance, which may require correction. Job ID: [id number]
[2019-12-29 19:20] LABS: Anion Gap 15 mmol/L (10-20); BUN (Urea Nitrogen) 20 mg/dL (7.0-18.7); Calc. Creatinine Clearance 115 mL/min (70-130); Calcium 7.8 mg/dL (7.8-10.44); Carbon Dioxide 28 mmol/L (22-29); Chloride 103 mmol/L (98-107); Estimated GFR-MDRD Greater than 90; Glucose 109 mg/dL (70-105); Magnesium 2.1 mg/dL (1.6-2.6); Potassium 3.6 mmol/L (3.5-5.1); Sodium 142 mmol/L (136-145)
[2019-12-29] MEDS ORDERED: Potassium Phosphate 30 MMOL in Sodium Chloride 0.9% 250 ML 250 ML IVPB SCH (20:15)
[2019-12-29] MEDS: ALPRAZolam 1 MG TAB PO PRN (20:24)
--- NOTE | 2019-12-29 21:49 | PRG ---
DATE OF SERVICE: 12/29/2019 SUBJECTIVE: The patient was seen this evening during rounds. She was lying in bed and resting comfortably. She is quite tachypneic and tachycardic throughout the day. This has been persistent. O2 saturation however is greater than 92% on 4 L nasal cannula. She appears to not be in any significant respiratory distress, but is quite tachypneic, breathing about 40 to 50 times a minute. Her Precedex has been discontinued. She has been diuresed today several times. I did discuss this patient with Dr. Gonzales this evening. He has ordered some K-Phos replacement. OBJECTIVE: VITAL SIGNS: Temperature 98.6, pulse 139, respirations 49, oxygen saturation 94% on 4 L nasal cannula, and blood pressure 127/78. GENERAL: Young female, lying in bed with no signs of acute distress. PULMONARY: Equal chest rise and fall. The patient is quite tachypneic, but has no significant respiratory distress, otherwise. ASSESSMENT: 1. Acute respiratory failure secondary to congestive heart failure exacerbation, persistent. 2. Chronic debility. 3. Metastatic breast carcinoma with liver and bone metastasis. PLAN: The patient to receive potassium-phos today per orders of Dr. Gonzales. We will minimize the volume and place it in a 250 mL bag. We will try and make her comfortable throughout the evening and update Dr. Gonzales if there are any other concerns or changes in her clinically. Continue p.r.n. medications for pain and anxiety. This patient was discussed with Dr. Gonzales before this dictation. Job ID: [id number]
[2019-12-29] MEDS: Enoxaparin Sodium 40 MG/0.4 ML SYRINGE SC SCH (22:04)
[2019-12-29] MEDS: Furosemide 20 MG/2 ML VIAL SLOW IVP SCH (22:05)
[2019-12-30] MEDS: Morphine 4 MG/ML VIAL SLOW IVP PRN ×8 (00:24→22:31)
[2019-12-30] MEDS: cloNIDine 0.2 MG TAB PO SCH ×6 (01:08→20:20)
[2019-12-30] MEDS: Lorazepam 2 MG/ML VIAL SLOW IVP PRN ×3 (01:09→23:43)
[2019-12-30 04:49] LABS: Band 13 % (5-11); Hemoglobin 10.8 g/dL (12.0-16.0); Lymphocytes 1 % (21-51); MDiff Complete? YES; Mean Corpuscular HGB CONC 33.1 g/dL (32.0-36.0); Mean Corpuscular Hemoglobin 32.2 pg (27.0-31.0); Mean Corpuscular Volume 97.5 fL (78.0-98.0); Mean Platelet Volume 8.2 fL (7.4-10.4); Monocytes 3 % (0-10); Neutrophil 83 % (42-75); Nucleated RBC 4 % (0); Platelet Count 121 thou/uL (130-400); Platelet Morphology Comment Appears Decreased; RBC Distribution Width 23.2 % (11.5-14.5); Red Blood Cell (RBC) Count 3.34 mill/uL (4.20-5.40); White Blood Cell (WBC) Count 13.5 thou/uL (4.8-10.8)
[2019-12-30 04:56] LABS: Anion Gap 16 mmol/L (10-20); BUN (Urea Nitrogen) 18 mg/dL (7.0-18.7); Calc. Creatinine Clearance 115 mL/min (70-130); Calcium 7.3 mg/dL (7.8-10.44); Carbon Dioxide 30 mmol/L (22-29); Chloride 97 mmol/L (98-107); Estimated GFR-MDRD Greater than 90; Glucose 161 mg/dL (70-105); Phosphorus 4.9 mg/dL (2.3-4.7); Potassium 3.8 mmol/L (3.5-5.1); Sodium 139 mmol/L (136-145)
[2019-12-30] MEDS: Fleet Enema 133 ML BOT FS PRN (06:19)
--- NOTE | 2019-12-30 08:12 | PDOC.MOPN ---
Interval History: breathing better today, want to go home with hospice, she is ready she says - Vital Signs Vital Signs: Vital Signs (12 hours) Temp Pulse Resp BP Pulse Ox 12/30/19 07:55 97 12/30/19 07:52 121 H 32 H 97 12/30/19 07:23 96 12/30/19 04:59 99/68 12/30/19 04:00 98.3 F 12/30/19 01:08 99/68 12/30/19 00:16 96 12/30/19 00:13 132 H 49 H 96 12/29/19 22:39 97/77 Weight Admit Weight 143 lb 6.4 oz Weight 142 lb 13.753 oz Most Recent Monitor Data Heart Rate from ECG 122 NIBP 100/76 NIBP BP-Mean 84 Respiration from ECG 21 SpO2 92 - Physical Exam General: Alert, Mild distress Lungs: Other (decreased BS carleen) Cardiovascular: Other (tachy) Abdomen: Other (liver noted, mild tenderness) Skin: No rashes Neurological: Normal speech Psych/Mental Status: Mental status NL - Labs Result Diagrams: 12/30/19 04:00 12/30/19 04:00 Lab results: Laboratory Results - last 24 hr 12/30/19 04:00: B-Natriuretic Peptide 384.3 H 12/30/19 04:00: WBC 13.5 H, RBC 3.34 L, Hgb 10.8 L, Hct 32.5 L, MCV 97.5, MCH 32.2 H, MCHC 33.1, RDW 23.2 H, Plt Count 121 L, MPV 8.2, Neutrophils % (Manual) 83 H, Band Neuts % (Manual) 13 H, Lymphocytes % (Manual) 1 L, Monocytes % ( Manual) 3, Nucleated RBCs # (Man) 4 H, Plt Morphology Comment Appears Decreased L 12/30/19 04:00: Sodium 139, Potassium 3.8, Chloride 97 L, Carbon Dioxide 30 H, Anion Gap 16, BUN 18, Creatinine 0.69, Estimated GFR (MDRD) Greater than 90, Glucose 161 H, Calcium 7.3 L, Phosphorus 4.9 H, Magnesium 2.0 12/29/19 18:50: B-Natriuretic Peptide 292.4 H 12/29/19 18:50: Sodium 142, Potassium 3.6, Chloride 103, Carbon Dioxide 28, Anion Gap 15, BUN 20 H, Creatinine 0.69, Estimated GFR (MDRD) Greater than 90, Glucose 109 H, Calcium 7.8, Phosphorus 3.0, Magnesium 2.1 A/P - Problem (1) Elevated LFTs Current Visit: Yes Code(s): R79.89 - OTHER SPECIFIED ABNORMAL FINDINGS OF BLOOD CHEMISTRY Status: Acute (2) Malnutrition Current Visit: Yes Code(s): E46 - UNSPECIFIED PROTEIN-CALORIE MALNUTRITION Status: Acute (3) Mucositis (ulcerative) due to antineoplastic therapy Current Visit: Yes Code(s): K12.31 - ORAL MUCOSITIS (ULCERATIVE) DUE TO ANTINEOPLASTIC THERAPY Status: Acute (4) Neutropenic fever Current Visit: Yes Code(s): D70.9 - NEUTROPENIA, UNSPECIFIED; R50.81 - FEVER PRESENTING WITH CONDITIONS CLASSIFIED ELSEWHERE Status: Acute (5) Abdominal pain Current Visit: Yes Code(s): R10.9 - UNSPECIFIED ABDOMINAL PAIN Status: Acute Qualifiers: Abdominal location: generalized Qualified Code(s): R10.84 - Generalized abdominal pain (6) Breast cancer Current Visit: No Status: Acute (7) Epigastric pain Current Visit: No Code(s): R10.13 - EPIGASTRIC PAIN Status: Acute (8) Liver metastases Current Visit: No Code(s): C78.7 - SECONDARY MALIG NEOPLASM OF LIVER AND INTRAHEPATIC BILE DUCT Status: Acute (9) Tachycardia with heart rate 100-120 beats per minute Current Visit: No Code(s): R00.0 - TACHYCARDIA, UNSPECIFIED Status: Acute (10) Bone metastases Current Visit: No Code(s): C79.51 - SECONDARY MALIGNANT NEOPLASM OF BONE Status: Chronic (11) Neutropenia Current Visit: No Code(s): D70.9 - NEUTROPENIA, UNSPECIFIED Status: Chronic (12) Acute and chronic respiratory failure with hypoxia Current Visit: Yes Code(s): J96.21 - ACUTE AND CHRONIC RESPIRATORY FAILURE WITH HYPOXIA Status: Acute - Plan Plan: 1. she has agreed to go home with hospice, hopefully this will be set up today 2. f/u with me as necessary, she knows we are available
[2019-12-30] MEDS: Pantoprazole 40 MG VIAL IVP SCH (08:53)
[2019-12-30] MEDS: Furosemide 20 MG/2 ML VIAL SLOW IVP SCH (08:54)
[2019-12-30] MEDS: methylPREDNISolone Sod Succ 40 MG VIAL IVP SCH (08:54)
[2019-12-30] MEDS: Metolazone 2.5 MG TAB PO SCH (08:55)
[2019-12-30] MEDS ORDERED: Potassium Chloride 40 MEQ in Premix Bag 1 BAG IVPB ONE (09:00)
[2019-12-30] MEDS: Cholecalciferol 10 MCG/ML (Vitamin D3) 50 ML BOT PO SCH (09:15)
[2019-12-30] MEDS: Calcium Carbonate 600 MG TAB PER TUBE SCH ×3 (09:15→20:19)
[2019-12-30] MEDS: Saccharomyces boulardii 250 MG CAP PO SCH (09:16)
[2019-12-30] MEDS: Simethicone Chewable 80 MG TAB PO SCH ×2 (09:17→20:19)
[2019-12-30 10:19] LABS: ALT (SGPT) 53 U/L (8-55); AST (SGOT) 74 U/L (5-34); Albumin 3.5 g/dL (3.5-5.0); Alkaline Phosphatase 890 U/L (40-110); Bilirubin, Total 6.5 mg/dL (0.2-1.2); Protein, Total 6.4 g/dL (6.0-8.3)
--- NOTE | 2019-12-30 10:41 | PRG ---
DATE OF SERVICE: 12/30/2019 SUBJECTIVE: Ms. Guallpa is awake and alert this morning and denies any dyspnea, syncope, or chest pain. She was placed on diuretics yesterday to treat an acute CHF exacerbation. She has 4 L negative balance over the last 24 hours. Tube feed is on hold. Urinary output currently is adequate for the patient's age and weight. OBJECTIVE: VITAL SIGNS: Currently include blood pressure 117/73, pulse 120, respiratory rate is 39, maximum temperature in last 24 hours is 98.7 degrees Fahrenheit, oxygen saturation is 100% on 4 L by nasal cannula oxygen. HEENT: Pupils are equal, round, reactive to light, and accommodation. She has no jugular venous distention noted. HEART: Reveals regular rate with sinus tachycardia. No murmurs or gallops auscultated. LUNGS: Clear to auscultation bilaterally. Breathing, regular and nonlabored. ABDOMEN: Soft, nontender, and moderately distended. NEUROLOGIC: Reveals no focal deficits present. LABORATORY FINDINGS: Today includes a CBC with 13,500 white blood cells, hemoglobin and hematocrit at 10.8 and 32.5 respectively. Platelet count is 121,000. Metabolic profile; sodium 139, potassium 3.8, chloride is 97, bicarb is 30, BUN is 18, creatinine 0.69, glucose is 161, magnesium 2.0, and phosphorus is 4.9. BNP is 384.3 today in contrast to 292.4 yesterday. IMPRESSION: 1. Acute congestive heart failure exacerbation, resolving. 2. Acute respiratory failure, improving. 3. Acute hypokalemia. 4. Acute contraction metabolic alkalosis. PLAN: 1. Correct abnormal electrolytes. 2. Continue with gentle diuresis. We will monitor the patient's urinary output and renal function as endpoint. 3. The patient is certainly hemodynamically stable for transfer to step-down unit. 4. Anticipate discharge from the hospital within the next 48 hours. Above findings and plan has been discussed with the patient and her brother at bedside. 5. Oncological care will be directed by her oncologist on outpatient basis. Job ID: [id number]
[2019-12-30] MEDS: Simethicone Chewable 80 MG TAB PO PRN ×2 (11:43→17:49)
[2019-12-30] MEDS: Cyclobenzaprine 10 MG TAB PO PRN (12:08)
[2019-12-30] MEDS ORDERED: fentaNYL 50 mcg/hour Patch TD SCH (16:45)
[2019-12-30] MEDS: ALPRAZolam 1 MG TAB PO PRN (17:49)
--- NOTE | 2019-12-30 20:02 | RAD ---
CHEST ONE VIEW: 12/30/19 HISTORY: Pulmonary insufficiency. COMPARISON: Radiograph 12/25/19. FINDINGS: Similar appearance to the air space opacity throughout the lungs. Port-a-Cath tip right atrium. Moder ate bilateral pleural effusions. There appears to be a left sided pleural drain as well as mediastinal drain and a right sided pleural drain. Enteric tube is placed with tip below the diaphragm although out of field of view. IMPRESSION: Similar examination of the chest. POS: HOME
[2019-12-30] MEDS: Enoxaparin Sodium 40 MG/0.4 ML SYRINGE SC SCH (20:20)
--- NOTE | 2019-12-30 22:01 | PRG ---
DATE OF SERVICE: 12/30/2019 SUBJECTIVE: The patient was seen this evening during rounds. She was sitting up in bed, awake and alert with no signs of acute distress. She was drinking water from a bottle. She reported she felt a little cold, but otherwise stated she was fine. She reported she would like to try some pain medications and possibly BiPAP later this evening. She is hoping to sleep. OBJECTIVE: VITAL SIGNS: Temperature 98.4, pulse 114, respirations 29, oxygen saturation 100% on 4 L nasal cannula, and blood pressure 113/74. GENERAL: Young female, sitting up in bed with no signs of acute distress. PULMONARY: Equal chest rise and fall. No signs of acute respiratory distress. ASSESSMENT: 1. Acute congestive heart failure exacerbation, improving. 2. Acute respiratory failure, improving. 3. Breast cancer with metastases. PLAN: Continue to advance tube feeds to goal. Continue to diurese the patient daily with Lasix overnight. We will make sure the patient is comfortable. BiPAP p.r.n. The patient can eat and drink as well as continue tube feeds at the same time. Repeat blood work in the morning. Anticipated discharge within the next 24 to 48 hours with hospice per nursing report. Job ID: [id number]
[2019-12-31] MEDS: cloNIDine 0.2 MG TAB PO SCH ×6 (01:26→21:01)
[2019-12-31] MEDS: Morphine 4 MG/ML VIAL SLOW IVP PRN ×4 (03:07→17:19)
[2019-12-31] MEDS: ALPRAZolam 1 MG TAB PO PRN (05:23)
[2019-12-31 05:31] LABS: ALT (SGPT) 46 U/L (8-55); AST (SGOT) 63 U/L (5-34); Albumin 3.4 g/dL (3.5-5.0); Alkaline Phosphatase 800 U/L (40-110); Anion Gap 11 mmol/L (10-20); BUN (Urea Nitrogen) 15 mg/dL (7.0-18.7); Bilirubin, Direct 3.6 mg/dL (0.1-0.3); Bilirubin, Total 4.6 mg/dL (0.2-1.2); Calc. Creatinine Clearance 135 mL/min (70-130); Calcium 7.9 mg/dL (7.8-10.44); Carbon Dioxide 32 mmol/L (22-29); Chloride 95 mmol/L (98-107); Estimated GFR-MDRD Greater than 90; Glucose 176 mg/dL (70-105); Phosphorus 2.2 mg/dL (2.3-4.7); Potassium 3.1 mmol/L (3.5-5.1); Protein, Total 6.4 g/dL (6.0-8.3); Sodium 135 mmol/L (136-145)
[2019-12-31] MEDS ORDERED: Potassium Phosphate 30 MMOL in Sodium Chloride 0.9% 500 ML IVPB SCH (08:30)
[2019-12-31] MEDS ORDERED: Spironolactone 25 MG TAB PO SCH (08:30)
[2019-12-31] MEDS ORDERED: Potassium Phosphate 30 MMOL in Sodium Chloride 0.9% 250 ML 250 ML IVPB SCH (08:45)
[2019-12-31] MEDS ORDERED: methylPREDNISolone Sod Succ 40 MG VIAL IVP SCH (09:00)
[2019-12-31] MEDS ORDERED: Furosemide 40 MG TAB PO SCH (09:00)
[2019-12-31] MEDS ORDERED: Loratadine 10 MG TAB PO PRN (09:41)
[2019-12-31] MEDS: Pantoprazole 40 MG VIAL IVP SCH (09:48)
[2019-12-31] MEDS: Milk Of Magnesia 30 ML UDCUP PO SCH (09:48)
[2019-12-31] MEDS: Simethicone Chewable 80 MG TAB PO SCH ×2 (09:48→21:02)
[2019-12-31] MEDS: Calcium Carbonate 600 MG TAB PER TUBE SCH ×3 (09:50→21:00)
[2019-12-31] MEDS: Saccharomyces boulardii 250 MG CAP PO SCH (09:50)
[2019-12-31] MEDS: Cholecalciferol 10 MCG/ML (Vitamin D3) 50 ML BOT PO SCH (09:52)
--- NOTE | 2019-12-31 10:10 | PRG ---
DATE OF SERVICE: 12/31/2019 SUBJECTIVE: Ms. Guallpa is awake and alert today. She had a good night. She reports adequate pain control. She is tolerating oral intake, though poor appetite. She denies any odynophagia. She tolerates tube feeds at goal. No bowel movement over the last 48 hours. Urinary output is adequate for the patient's age and weight. She did indeed respond adequately to forced diuresis yesterday for a total of almost 3 L of urinary output. OBJECTIVE: VITAL SIGNS: This morning include blood pressure 100/65, pulse 121, respiratory rate is 35, maximum temperature in the last 24 hours is 99 degrees Fahrenheit, current temperature is 98.1 degrees Fahrenheit, oxygen saturation is 100% on FiO2, 4.5 L by nasal cannula oxygen. HEENT: She has no jugular venous distention noted. HEART: Reveals regular rate with sinus tachycardia. No murmurs or gallops auscultated. LUNGS: Clear to auscultation bilaterally. Breathing, regular and nonlabored. ABDOMEN: Soft, moderately distended, but nontender to palpation. MUSCULOSKELETAL: Reveals 3/5 bilateral upper and 4/5 bilateral lower extremities. She has no motor or sensory deficits identified. NEUROLOGIC: Reveals no focal deficits present. LABORATORY FINDINGS: Today include: Metabolic profile: Sodium 135, potassium is 3.1, chloride is 95, bicarb is 32, BUN is 15 and creatinine 0.58 and this is in contrast to BUN and creatinine 18 and 0.69 from yesterday, and glucose 176. Magnesium is 2.0. Phosphorus is 2.2. Total bilirubin is 4.6 down from 6.5 yesterday. IMPRESSIONS: 1. Resolving acute pulmonary insufficiency. 2. Acute congestive heart failure exacerbation, resolving. 3. Acute hypokalemia. 4. Acute hypophosphatemia. 5. Chronic debility. 6. Metastatic breast carcinoma with liver and bony metastasis, stable. PLAN: 1. Correct abnormal electrolytes. 2. Increase activity per Physical and Occupational Therapy. 3. Anticipate discharge to home within the next 24 to 48 hours. Above findings and plan has been discussed with the patient and her brother at bedside. We will also initiate a steroid tapering protocol as the patient has been on Solu-Medrol now for over 1 week. Job ID: [id number]
[2019-12-31] MEDS: Metolazone 2.5 MG TAB PO SCH (11:26)
[2019-12-31] MEDS: methylPREDNISolone 4 mg Tablet PO SCH ×3 (11:54→21:01)
[2019-12-31] MEDS: Fleet Enema 133 ML BOT FS PRN (13:03)
[2019-12-31 13:25] VITALS: BMI 21.7
[2019-12-31] MEDS ORDERED: Acetaminophen 325 MG/10.15 ML UDCUP PO PRN (16:27)
[2019-12-31 16:29] VITALS: BP 126/84
[2019-12-31 16:43] LABS: Bilirubin Negative (Negative); Blood, Urine Negative (Negative); Clarity Clear (Clear); Glucose, Urine (Dipstick) Normal (Negative); Leukocyte 75 Leu/uL (Negative); Nitrite Negative (Negative); Protein, Urine (Dipstick) Negative (Neg-Trace); RBC/HPF 0-3 HPF (0-3); Squamous Epithelial None Seen HPF (0-3); Urobilinogen Normal mg/dL (Less than 2)
[2019-12-31 16:49] LABS: Bacteria/HPF 1+ HPF (None Seen)
[2019-12-31] MEDS ORDERED: Vancomycin 1 GM in Premix Bag 1 BAG IVPB SCH (17:00)
[2019-12-31] MEDS ORDERED: cefTRIAXone\\ROCEPHIN 2 GM in Sodium Chloride 0.9% 100 ML IVPB SCH (17:00)
[2019-12-31] MEDS ORDERED: Acetaminophen 650 MG Suppository PR PRN (17:17)
[2019-12-31] MEDS ORDERED: Acetaminophen 650 MG/20.3 ML UDCUP PO PRN (17:17)
[2019-12-31] MEDS: Simethicone Chewable 80 MG TAB PO PRN (17:22)
[2019-12-31] MEDS: Enoxaparin Sodium 40 MG/0.4 ML SYRINGE SC SCH (21:01)
--- NOTE | 2019-12-31 21:09 | PRG ---
DATE OF SERVICE: 12/31/2019 SUBJECTIVE: The patient was seen this evening during rounds. She was sitting up in bed, resting comfortably and asleep with no signs of acute distress. Nursing reported earlier today, the patient spiked a fever and became more tachycardic. She subsequently received Tylenol and IV antibiotics after diagnosis of urinary tract infection. Urine and blood cultures are pending at this time. OBJECTIVE: VITAL SIGNS: Temperature last documented was 100.4 at the time of fever that was around 3:00 p.m. Currently, blood pressure is 112/71. Respirations 31, oxygen saturation 100% on nasal cannula, heart rate 128. GENERAL: Comfortable appearing young female, lying in bed with no signs of acute distress. PULMONARY: Equal chest rise and fall. Tachypneic, but no signs of acute respiratory distress. ASSESSMENT: 1. Resolving acute pulmonary insufficiency. 2. Acute congestive heart failure exacerbation, resolving. 3. Chronic debility. 4. Metastatic breast carcinoma with liver and bone METS, stable. 5. Fever likely due to urinary tract infection, now being treated. PLAN: Continue current diet and pain regimen. Continue tube feeds at night. Continue free water restriction for 24 hours. Continue IV antibiotics and follow up cultures. Fields has been discontinued. The patient is pending discharge in the next 24 to 48 hours with home hospice. Job ID: [id number]
[2020-01-01] MEDS: ALPRAZolam 1 MG TAB PO PRN ×2 (00:14→15:48)
[2020-01-01] MEDS: Vancomycin HCl 750 MG in Sodium Chloride 0.9% 250 ML 250 ML IVPB SCH ×2 (00:14→09:39)
[2020-01-01] MEDS: Morphine 4 MG/ML VIAL SLOW IVP PRN ×2 (02:30→09:39)
[2020-01-01] MEDS: cloNIDine 0.2 MG TAB PO SCH ×3 (02:30→09:43)
[2020-01-01 05:50] LABS: Anion Gap 14 mmol/L (10-20); BUN (Urea Nitrogen) 13 mg/dL (7.0-18.7); Calc. Creatinine Clearance 108 mL/min (70-130); Calcium 8.4 mg/dL (7.8-10.44); Carbon Dioxide 30 mmol/L (22-29); Chloride 97 mmol/L (98-107); Estimated GFR-MDRD Greater than 90; Glucose 260 mg/dL (70-105); Magnesium 2.1 mg/dL (1.6-2.6); Phosphorus 2.5 mg/dL (2.3-4.7); Potassium 3.8 mmol/L (3.5-5.1); Sodium 137 mmol/L (136-145)
[2020-01-01 06:27] LABS: Hemoglobin 10.8 g/dL (12.0-16.0); Mean Corpuscular HGB CONC 32.4 g/dL (32.0-36.0); Mean Corpuscular Hemoglobin 31.8 pg (27.0-31.0); Mean Corpuscular Volume 98.1 fL (78.0-98.0); RBC Distribution Width 21.3 % (11.5-14.5); Red Blood Cell (RBC) Count 3.38 mill/uL (4.20-5.40); White Blood Cell (WBC) Count 8.6 thou/uL (4.8-10.8)
[2020-01-01 06:43] LABS: Anisocytosis SLIGHT = 6-15 cells (100X) (0-5/hpf); Band 6 % (5-11); Eosinophils 1 % (0-10); Lymphocytes 2 % (21-51); MDiff Complete? YES; Macrocytosis SLIGHT = 6-15 cells (100X) (0-5/hpf); Mean Platelet Volume 9.2 fL (7.4-10.4); Metamyelocyte 1 % (0-0); Myelocyte 1 % (0-0); Neutrophil 89 % (42-75); Platelet Count 102 thou/uL (130-400); Platelet Morphology Comment Appears Decreased; Polychromasia SLIGHT = 2-3 cells (100X) (0-2/hpf); Tear Drops SLIGHT = 2-5 cells (100X) (0-1/hpf)
[2020-01-01] MEDS ORDERED: Spironolactone 25 MG TAB PO SCH ×2 (08:00→09:00)
[2020-01-01] MEDS ORDERED: Loratadine 10 MG TAB PO SCH (09:00)
[2020-01-01] MEDS ORDERED: Levalbuterol HCl 0.63 MG/3 ML NEB NEB PRN (09:05)
[2020-01-01] MEDS: Calcium Carbonate 600 MG TAB PER TUBE SCH ×2 (09:35→15:48)
[2020-01-01] MEDS: methylPREDNISolone 4 mg Tablet PO SCH ×3 (09:35→17:57)
[2020-01-01] MEDS: Milk Of Magnesia 30 ML UDCUP PO SCH (09:35)
[2020-01-01] MEDS: Simethicone Chewable 80 MG TAB PO SCH (09:36)
[2020-01-01] MEDS: Saccharomyces boulardii 250 MG CAP PO SCH (09:36)
[2020-01-01] MEDS: Cholecalciferol 10 MCG/ML (Vitamin D3) 50 ML BOT PO SCH (09:40)
[2020-01-01] MEDS: Pantoprazole 40 MG VIAL IVP SCH (09:40)
[2020-01-01] MEDS: Ergocalciferol 1.25 MG(50,000 UNITS) CAP PO SCH (09:44)
[2020-01-01] MEDS ORDERED: Potassium Phosphate 30 MMOL in Sodium Chloride 0.9% 250 ML 250 ML IVPB SCH (10:45)
[2020-01-01] MEDS ORDERED: HumaLOG 300 UNITS/3 ML VIAL SC PRN (11:51)
[2020-01-01] MEDS ORDERED: Dextrose 50% Abboject 50 ML SYRINGE IVP PRN (11:51)
[2020-01-01] MEDS ORDERED: Dextrose 5% in Water 1,000 ML IV PRN (11:51)
[2020-01-01] MEDS ORDERED: cloNIDine 0.2 MG TAB PO SCH (12:00)
[2020-01-01] MEDS ORDERED: fentaNYL 75 mcg/hour Patch TD SCH (12:00)
[2020-01-01] MEDS ORDERED: SMX/TMP 800-160mg/20 ML UDCUP PO SCH (12:00)
[2020-01-01] MEDS ORDERED: fentaNYL 50 mcg/hour Patch TD SCH (13:00)
[2020-01-01 15:18] VITALS: TEMP 98
[2020-01-01] MEDS ORDERED: methylPREDNISolone 4 mg Tablet PO SCH (21:00)
[2020-01-02] MEDS ORDERED: methylPREDNISolone 4 mg Tablet PO SCH (08:00)
[2020-01-02] MEDS ORDERED: Loratadine 10 MG TAB PO SCH (09:00)
--- NOTE | 2020-01-03 03:36 | DIS ---
DATE OF ADMISSION: 12/02/2019 DATE OF DISCHARGE: 01/01/2020 DISCHARGE ATTENDING: Vasile Gonzales DO CONSULTS: 1. Cardiovascular Surgery, Cristo Gilliland MD. 2. Gastroenterology, Paul Esteves MD. 3. Infectious Disease, Kevan Eng MD. 4. Oncology, Deya Duran MD. 5. Pulmonology, Nacho Castelan MD. 6. Ethics Committee. 7. Hospice Agency. 8. Clif Guillermo Obi, MD with Nephrology. PROCEDURES: 1. On 12/07/2019, thoracentesis by Dr. Castelan with 1 L of serosanguineous fluid evacuated from the right chest. 2. On 12/09/2019, right pleural chest tube #28-[place] was placed by Dr. Gilliland for malignant pleural effusion with respiratory distress. 3. On 12/09/2019, a right femoral central line was placed by Dr. Koo. 4. On 12/08/2019, echocardiogram was done, ejection fraction was visually estimated at 60% to 65%, normal right ventricular size and function, left atrium of normal size, normal right atrium. Trace mitral regurgitation present. Mild-to- moderate tricuspid regurg. PRIMARY DIAGNOSES: Neutropenic fever, dysphagia, sinus tachycardia, metastatic breast cancer, volume depletion, and dehydration. Respiratory failure, improved. Chronic anemia, chronic malnutrition, and pulmonary edema. SECONDARY DIAGNOSES: History of asthma, chronic pleural effusions, and anxiety. DISCHARGE MEDICATIONS: 1. Continue Duragesic patch 75 mcg transdermal q.3 days. 2. Continue Dilaudid 1 to 2 p.o. q.4 hours as needed. 3. Medrol Dosepak as directed. 4. Florastor 250 mg p.o. daily for 30 days. 5. Aldactone 25 mg p.o. b.i.d. 6. Bactrim suspension 20 mL p.o. q.12 hours for seven days. 7. Clonidine 0.2 mg q.6 hours with hold parameters. 8. Tylenol 650 p.o. q.8 hours as needed. 9. Continue albuterol inhaler and Proventil inhaler. 10. Continue alprazolam 0.5 mg p.o. at bedtime. 11. Continue vitamin C 1000 mg p.o. daily. 12. Continue Zyrtec 10 mg p.o. daily. 13. Vitamin D3 of 5000 units p.o. every two days. 14. Vitamin D 3 mL p.o. daily. 15. Flexeril 10 mg p.o. q.8 hours as needed. 16. Xgeva 120 mg subcu q.30 days. 17. Gabapentin 600 mg p.o. 3 times a day. 18. Guaifenesin 1200 mg p.o. q.12 hours as needed. 19. Magic mouthwash p.r.n. 20. Protonix 40 mg p.o. daily. 21. Simethicone 80 mg p.o. p.r.n. HISTORY OF PRESENT ILLNESS AND HOSPITAL COURSE: This is a 39-year-old female, with stage 3 breast cancer diagnosed in 2007. The patient has been followed by the Oncology Clinic. She last had chemotherapy about a week before this admission. The patient was brought in because she was feeling miserable and her temperature was 103 the night before and 102 the morning of admission. The patient has chronic respiratory failure and has been requiring 2 L of nasal cannula oxygen. The patient has reported some difficulty swallowing but no mouth pain. The patient was admitted and worked up for neutropenic fever and placed on empiric antibiotics. The patient's blood cultures showed no growth. The patient had a negative C. diff. The patient developed a urinary tract infection. Cultures reported Klebsiella pneumoniae and the patient was treated with appropriate antibiotics. The patient was placed on tube feeds via [place] during her hospital stay. The patient was also given supplements of Ensure. She was eventually able to tolerate a regular diet. The patient required full mechanical ventilation due to her respiratory failure for several days during this admission. Pulmonary Services managed the patient while she was on the ventilator. On the day of discharge, the patient was seen and evaluated by Dr. Gonzales. The patient's brother was at bedside and both the patient and family had everything in place for the patient to go home on hospice. On the day of discharge, the patient's blood pressure was stable, mildly tachycardic, and mild respiratory distress, but much improved from previous. The patient remains a full code. The patient was discharged home via ambulance for comfort with continued physical and occupational therapy. Disposition is guarded. DISCHARGE INSTRUCTIONS: 1. Location: Hospice care at home. 2. Diet: Regular diet as tolerated. Tube feeds as needed. 3. Activity: Activity as tolerated. 4. Followup: Follow up with primary care physician. This is just a brief summary of the patient's extended hospital stay. Please see the entire chart for details. Job ID: [id number]
[2020-01-03] MEDS ORDERED: methylPREDNISolone 4 mg Tablet PO SCH (08:00)
[2020-01-04] MEDS ORDERED: methylPREDNISolone 4 mg Tablet PO SCH (08:00)
[2020-01-05] MEDS ORDERED: methylPREDNISolone 4 mg Tablet PO SCH (08:00)
== END 2020-01-01 18:27 | disposition hospice, home (50) | DRG 808 ==
LOC: ONC/OP 11:21 → ONC 11:22 → CCU 12-07 09:35 → IMCU/EMU 12-30 11:54
PROVIDERS: ADMIT Internal Medicine; ATTEND Internal Medicine
PROC: 0W993ZZ Drainage of Right Pleural Cavity, Percutaneous Approach (ICD-10-PCS; principal; 2019-12-07)
PROC: 30233N1 Transfusion of Nonautologous Red Blood Cells into Peripheral Vein, Percutaneous Approach (ICD-10-PCS; 2019-12-08)
PROC: 0W9930Z Drainage of Right Pleural Cavity with Drainage Device, Percutaneous Approach (ICD-10-PCS; 2019-12-09)
PROC: 0BH18EZ Insertion of Endotracheal Airway into Trachea, Via Natural or Artificial Opening Endoscopic (ICD-10-PCS; 2019-12-09)
PROC: 5A1955Z Respiratory Ventilation, Greater than 96 Consecutive Hours (ICD-10-PCS; 2019-12-09)
PROC: 06HY33Z Insertion of Infusion Device into Lower Vein, Percutaneous Approach (ICD-10-PCS; 2019-12-09)
DX: D70.1 Agranulocytosis secondary to cancer chemotherapy (principal); J96.21 Acute and chronic respiratory failure with hypoxia; N39.0 Urinary tract infection, site not specified; C78.7 Secondary malignant neoplasm of liver and intrahepatic bile duct; C78.00 Secondary malignant neoplasm of unspecified lung; C79.51 Secondary malignant neoplasm of bone; E46 Unspecified protein-calorie malnutrition; J91.0 Malignant pleural effusion; K56.7 Ileus, unspecified; E87.0 Hyperosmolality and hypernatremia; D62 Acute posthemorrhagic anemia; E87.3 Alkalosis; C50.111 Malignant neoplasm of central portion of right female breast; B96.1 Klebsiella pneumoniae [K. pneumoniae] as the cause of diseases classified elsewhere; Z17.1 Estrogen receptor negative status [ER-]; E86.0 Dehydration; T45.1X5A Adverse effect of antineoplastic and immunosuppressive drugs, initial encounter; R50.81 Fever presenting with conditions classified elsewhere; J45.909 Unspecified asthma, uncomplicated; E86.9 Volume depletion, unspecified; G89.3 Neoplasm related pain (acute) (chronic); D63.0 Anemia in neoplastic disease; R13.10 Dysphagia, unspecified; K12.31 Oral mucositis (ulcerative) due to antineoplastic therapy; K56.41 Fecal impaction; E83.39 Other disorders of phosphorus metabolism; D64.81 Anemia due to antineoplastic chemotherapy; K64.9 Unspecified hemorrhoids; I11.0 Hypertensive heart disease with heart failure; E87.6 Hypokalemia; E55.9 Vitamin D deficiency, unspecified; E83.51 Hypocalcemia; R73.9 Hyperglycemia, unspecified; T38.0X5A Adverse effect of glucocorticoids and synthetic analogues, initial encounter; I50.9 Heart failure, unspecified; Z79.51 Long term (current) use of inhaled steroids; Z79.899 Other long term (current) drug therapy
CPT/HCPCS: 36415; 36416; 36430; 71045; 71250; 74018; 76705; 80048; 80053; 80076; 80202; 81001; 81003; 81015; 82140; 82248; 82306; 82330; 82805; 83010; 83605; 83690; 83735; 83880; 84100; 84134; 84145; 84443; 85007; 85025; 85027; 86140; 86850; 86900; 86901; 87040; 87077; 87086; 87186; 87324; 87449; 93005; 93010; 93306; 94002; 94003; 94640; 94660; C1729; C9113; J0133; J0692; J0696; J1447; J1450; J1642; J1650; J1940; J2001; J2060; J2185; J2248; J2250; J2270; J2405; J2550; J2704; J2765; J2920; J2930; J2997; J3010; J3370; J3465; J3475; J3480; J3490; J7030; J7050; J7070; J7509; J7608; J7614; J7620; P9016; P9047; Q0162; Q0163; S0028